=== PATIENT | male | born 1950 | race Caucasian/White ===

== ENCOUNTER 2016-09-27 21:10 | Inpatient (IN) | payer MEDICARE, OTHER ==
[~2016-09-27] VITALS: Ht 165.1 cm; Wt 75.4 kg
[~2016-09-27 21:10] MED LIST: ACET-141 GTB; ALLO100T GTB; AMLO5TAB4 GTB; ASCO500S2 GTB; ATOR10TA65 GTB; CLON-379 GTB; COLC0.6T6 GTB; EPOE10003 SC; FEBU40TA GTB; FER325 GTB; HEP30MU30 IJ; HYDR-3671 GTB; HYDR-762 GTB; INSU100C SC; IPRA3AMP INHALATION; LACT20SO2 GTB; LACTINEX GTB; METAM GTB; METO-407 GTB; PANT40TA4 GTB; POLY15DR42 BOTH EYES; TAMS0.4C2 GTB; VANC500V10 GTB; [UNRECOGNIZED DRUG - CODE] PO
[2016-09-27] MEDS ORDERED: SOD CHLORIDE 0.9% 1,000 ML IV STA (22:51)
--- NOTE | 2016-09-27 23:13 | RADRPT ---
PROCEDURE: XR Chest. CLINICAL INDICATION: Possible stroke. 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 Cardiomegaly. The lungs are clear. Likely changes of centrolobular emphysema. There is no pleural effusion or pneumothorax. IMPRESSION: No acute disease. RPTAT: [facility] Physician [place] Date Time Electronically viewed and signed by Stephanie Licea Physician on 09/27/2016 23:13 RS/
[2016-09-27 23:39] LABS: ADD UMIC YES; URINE BILIRUBIN (Dip) NEGATIVE (NEGATIVE); URINE BLOOD (Dip) TRACE (NEGATIVE); URINE COLOR LT. YELLOW (YELLOW); URINE GLUCOSE (Dip) NEGATIVE (NEGATIVE); URINE KETONES (Dip) NEGATIVE (NEGATIVE); URINE LEUKOCYTE ESTERASE (Dip) 2+ (NEGATIVE); URINE NITRITE (Dip) NEGATIVE (NEGATIVE); URINE TOTAL PROTEIN (Dip) 1+ (NEGATIVE); URINE UROBILINOGEN (Dip) 0.2 E.U./dL (0.1-1.0)
[2016-09-27 23:40] LABS: BASOPHILS % 0.4 % (0.0-2.0); EOSINOPHILS # 0.1 10^3/ul (0.0-0.5); EOSINOPHILS % 1.3 % (0.0-7.0); HEMATOCRIT 38.8 % (42.0-52.0); HEMOGLOBIN 13.2 g/dl (14.0-18.0); LYMPHOCYTES # 2.2 10^3/ul (0.8-2.9); LYMPHOCYTES % 25.6 % (15.0-51.0); MEAN CORPUSCULAR HEMOGLOBIN 30.1 pg (29.0-33.0); MEAN CORPUSCULAR HGB CONC 34.1 g/dl (32.0-37.0); MEAN CORPUSCULAR VOLUME 88.4 fl (82.0-101.0); MEAN PLATELET VOLUME 8.8 fl (7.4-10.4); MONOCYTE # 0.9 10^3/ul (0.3-0.9); MONOCYTES % 10.6 % (0.0-11.0); NEUTROPHIL # 5.3 10^3/ul (1.6-7.5); NEUTROPHILS % 62.1 % (39.0-77.0); PLATELET COUNT 234 10^3/UL (140-440); RED BLOOD COUNT 4.39 10^6/ul (4.70-6.10); RED CELL DISTRIBUTION WIDTH 15.5 % (11.5-14.5); UNCORRECTED WBC 8.5 10^3/ul (4.8-10.8); WHITE BLOOD COUNT 8.5 10^3/ul (4.8-10.8)
[2016-09-27 23:42] LABS: CONDITION 1; LH ANALYZER COMMENTS 1
--- NOTE | 2016-09-27 23:44 | RADRPT ---
PROCEDURE: CT Brain without contrast. CLINICAL INDICATION: Stroke TECHNIQUE: A CT of the brain was performed on a GE [employer] 64-slice CT scanner utilizing axial imaging from the skull base through the vertex without IV contrast. Multiplanar reformatted images were made. Images were reviewed on a PACS workstation. The CTDIvol is 46.84 mGy and the DLP is 635 .09 mGycm. One of the following 3 dose reduction techniques were used: Automated exposure control; adjustment of the mA and/or kV according to patient size; or use of iterative reconstruction technique. COMPARISON: 01/12/2016 CT brain FINDINGS: There is no intracranial hemorrhage, mass effect, or midline shift. No extra-axial fluid collection is seen. The ventricles and sulci are age appropriate. No evidence for hydrocephalus is present. M edial wedge-shaped decreased attenuation is noted in the left superior cerebellum and vermis. Subtl e decreased attenuation is noted in the bilateral centrum semiovale and periventricular white matter compatible with mild chronic microvascular ischemic disease. The visualized scalp and calvarium demonstrates a right transparietal craniotomy and shunt with tip superimposed over the left body of the lateral ventricle and periventricular white matter. The patie nt is status post suboccipital craniectomy changes. The previously described occipital scalp fluid collection has resolved. The bilateral orbits are normal. The bilateral paranasal sinuses, mastoid air cells and middle ear cavities are clear. IMPRESSION: 1. No evidence of acute intracranial hemorrhage, infarcts, or acute intracranial pathology. 2. Status post suboccipital craniectomy with postsurgical changes present and gliosis in the left s uperior cerebellum and vermis. 3. Stable appearance to the right transparietal shunt without hydrocephalous. 4. Mild chronic microvascular ischemic disease and mild diffuse volume loss RPTAT: HDC .Lacey Sofia MD, Date Time Electronically viewed and signed by .Lacey Sofia MD, on 09/27/2016 23:44 .C/
[2016-09-27 23:46] LABS: BACTERIA,URINE MANY; SQUAMOUS EPITHELIAL CELL,UR FEW; URINE RBCS 0-2 /HPF (0)
[2016-09-27 23:50] LABS: INR 0.89; PT RATIO 0.9
[2016-09-27 23:51] LABS: PARTIAL THROMBOPLASTIN TIME 34.2 Sec (25.0-35.0)
[2016-09-27 23:52] LABS: CHLORIDE 98 mmol/L (97-110)
[2016-09-27 23:53] LABS: POTASSIUM 3.6 mmol/L (3.5-5.1); SODIUM 142 mmol/L (135-144)
[2016-09-27 23:56] LABS: ANION GAP 19 (8-16); BLOOD UREA NITROGEN 48 mg/dl (7-20); CALCIUM 9.4 mg/dl (8.4-10.2); CARBON DIOXIDE 29 mmol/L (21-31); GLUCOSE 138 mg/dl (70-220)
[2016-09-28] MEDS ORDERED: CEFEPIME 2GM/50 ML (PMX) 50 ML IVPB SCH
[2016-09-28] MEDS ORDERED: MECLIZINE 12.5 MG TAB PO ONE (00:30)
[2016-09-28 01:09] LABS: TROPONIN-I < 0.012 ng/ml (0.00-0.12)
[2016-09-28] MEDS ORDERED: ONDANSETRON 4 MG INJ IV PRN ×2 (02:00→09:00)
[2016-09-28] MEDS ORDERED: ACETAMINOPHEN 325 MG TAB PO PRN ×2 (02:00→09:00)
--- NOTE | 2016-09-28 04:41 | ERA ---
ER Documentation Chief Complaint Date/Time DATE: 09/28/16 TIME: 04:38 Chief Complaint WEAKNESS AND AMS SINCE 0700. NO HEADACHE. NO VOMITING. SPEECH CLEAR HPI This 66-year-old male presents for feeling weak since this morning. Has generalized weakness as well as dizziness described as more of a vertigo as well as lightheadedness. Is a calm in by his family members also state that he is saying things that don't make sense and possibly even hallucinating. The last time the patient had these symptoms he was admitted for sepsis. I was ER physician at that time and it isn't cellulitis then. Denies abdominal pain, diarrhea, fevers, but has had chills. Denies cough and shortness of breath as well as chest pain. ROS All systems reviewed and are negative except as per history of present illness. Medications Home Meds Reported Medications Ascorbic Acid* (Vitamin C* Liq) 500 Mg/5 Ml Syrup, 500 MG GTB DAILY, ML 01/12/16 Vancomycin Hcl* (Vancomycin Hcl* Liq) 250 Mg/5 Ml-Oral Soln, 250 MG GTB Q6, ML 01/12/16 Tamsulosin Hcl* (Tamsulosin Hcl*) 0.4 Mg Cap.er.24h, 0.4 MG GTB DAILY, CAP 01/12/16 Pantoprazole* (Pantoprazole*) 40 Mg Tablet.dr, 40 MG GTB DAILY, TAB 01/12/16 Nystatin* (Mycostatin*) 5 Ml Susp, 5 ML PO TID, EA 01/12/16 Psyllium* (Metamucil*) 1 Pkt Susp, 1 PKT GTB DAILY, PACKET 01/12/16 Lactulose* (Lactulose*) 20 Gm/30 Ml Solution, 20 GM GTB Q8 Y for CONSTIPATION, ML 01/12/16 Lactobacillus Acidophilus* (Lactinex*) 1 Tab Chew, 1 TAB GTB TID, TAB 01/12/16 Hydrocodone Bit-Acetaminophen* ([place]*) 10-325 Mg Tablet, 1 TAB GTB Q4H Y for PAIN, TAB 01/12/16 Hydralazine Hcl* (Hydralazine Hcl*) 25 Mg Tab, 25 MG GTB TID Y for ELEVATED BLOOD PRESSURE, #60 TAB HOLD IF SBP<110 OR HR<60 01/12/16 Insulin Lispro (Humalog) 100 U/Ml Cartridge, 0 SC SLIDING SCALE ACHS, EA 01/12/16 Heparin Sod (Porcine) (Heparin) 1,000 Unit/Ml Soln, 5000 UNIT IJ Q12 01/12/16 Ferrous Sulfate* (Ferrous Sulfate*) 325 Mg Tabec, 325 MG GTB DAILY, TAB 01/12/16 Epoetin tali* (Epogen* (ESRD)) 10,000 Unit/1 Ml Vial, 84907 UNIT SC TUES, FRI, SAT, VIAL 01/12/16 Ipratropium-Albuterol (Ipratropium-Albuterol) 0.5-3 Mg/3 Ml Ampul.neb, 3 ML INHALATION Q6 Y for WHEEZING AND SOB, #30 VIAL 01/12/16 Clonidine Hcl* (Clonidine Hcl*) 0.1 Mg Tab, 0.1 MG GTB BID Y for ELEVATED BLOOD PRESSURE, TAB HOLD IF SBP<110, HR<60 01/12/16 Atorvastatin Calcium (Atorvastatin Calcium) 10 Mg Tablet, 10 MG GTB QHS, #30 TAB 01/12/16 Artificial Tears* (Artificial Tears* Ophth) 15 ml Opht, 2 DROP BOTH EYES QID, EA 01/12/16 Amlodipine Besylate* (Norvasc*) 5 Mg Tablet, 5 MG GTB DAILY, TAB HOLD FOR SBP LESS THAN 110 OR HR LESS THAN 60 01/12/16 Allopurinol* (Allopurinol*) 100 Mg Tablet, 100 MG GTB DAILY, TAB 01/12/16 Acetaminophen* (Acetaminophen*) 500 MG Extra Strength Tablet, 500 MG GTB Q6 Y for PAIN AND OR ELEVATED TEMP, TAB 01/12/16 Colchicine* (Colcrys*) 0.6 Mg Tablet, 0.6 MG GTB DAILY Y for gout, TAB 05/30/14 Metoprolol Tartrate* (Lopressor*) 100 Mg Tablet, 100 MG GTB BID, TAB HOLD IF SBP<110, HR<60 05/30/14 Febuxostat* (Uloric*) 40 Mg Tablet, 40 MG GTB DAILY 12/29/11 Allergies Allergies: Coded Allergies: morphine (Verified Allergy, Severe, 01/12/16) PMhx/Soc History of Surgery: Yes (OCCIPITAL CRANIOTOMY,VETRICULOSTOMY, PEG TUBE PLACEMENT,L KNEE SURGERY, CHO) Anesthesia Reaction: No Hx Neurological Disorder: Yes (DEPRESSION,DEMENTIA) Hx Respiratory Disorders: Yes (PNEUMONIA) Hx Cardiac Disorders: Yes (HTN,HYPERLIPIDIA,CVA) Hx Psychiatric Problems: Yes (DEMETIA) Hx Miscellaneous Medical Probl: Yes (POST VENTRICULOSTOMY) Hx Alcohol Use: Yes Hx Substance Use: No Hx Tobacco Use: Yes Smoking Status: Former smoker Physical Exam Vitals Vital Signs Date Time Temp Pulse Resp B/P Pulse Ox O2 Delivery O2 Flow Rate FiO2 09/27/16 23:10 73 16 164/101 99 Room Air 09/27/16 21:15 97.8 71 20 155/65 98 Physical Exam Const: [] No distress Head: Atraumatic Eyes: Normal Conjunctiva ENT: Normal External Ears, Nose and Mouth. Neck: Full range of motion..~ No meningismus. Resp: Clear to auscultation bilaterally Cardio: Regular rate and rhythm, no murmurs Abd: Soft, non tender, non distended. Normal bowel sounds Skin: No petechiae or rashes Back: No midline or flank tenderness Ext: No cyanosis, or edema, no evidence of cellulitis Neur: Awake and alert and oriented 3, however is confused and answering some questions, no focal deficit except for the chronic residual deficits from his ischemic hemorrhage. Psych: Normal Mood and Affect Result Diagram: 09/27/16231709/27/162317 Results 24 hrs Laboratory Tests Test 09/27/16 23:15 09/27/16 23:18 09/27/16 23:20 09/27/16 23:38 Urine Bacteria MANY Urine Bilirubin NEGATIVE Urine Clarity HAZY Urine Color LT. YELLOW Urine Glucose NEGATIVE% Urine Hemoglobin TRACE Urine Ketones NEGATIVE Urine Leukocyte Esterase 2+ Urine Microscopic RBC 0-2/HPF Urine Microscopic WBC 25-50/HPF Urine Nitrite NEGATIVE Urine Specific [place] 1.010 Urine Squamous Epithelial Cells FEW Urine Total Protein 1+ Urine Urobilinogen 0.2 E.U./dL Urine pH 7.0 Activated Partial Thromboplast Time 34.2Sec Anion Gap 19 Basophils # 0.010^3/ul Basophils % 0.4% Blood Morphology Comment Blood Urea Nitrogen 48mg/dl Calcium Level 9.4mg/dl Carbon Dioxide Level 29mmol/L Chloride Level 98mmol/L Creatinine 2.70mg/dl Eosinophils # 0.110^3/ul Eosinophils % 1.3% Glucose Level 138mg/dl Hematocrit 38.8% Hemoglobin 13.2g/dl Hemoglobin A1c 5.8% INR International Normalized Ratio 0.89 Lymphocytes # 2.210^3/ul Lymphocytes % 25.6% Mean Corpuscular Hemoglobin 30.1pg Mean Corpuscular Hemoglobin Concent 34.1g/dl Mean Corpuscular Volume 88.4fl Mean Platelet Volume 8.8fl Monocytes # 0.910^3/ul Monocytes % 10.6% Neutrophils # 5.310^3/ul Neutrophils % 62.1% Nucleated Red Blood Cells # 0.010^3/ul Nucleated Red Blood Cells % 0.0/100WBC Platelet Count 97230^3/UL Potassium Level 3.6mmol/L Prothrombin Time 12.0Sec Prothrombin Time Ratio 0.9 Red Blood Count 4.3910^6/ul Red Cell Distribution Width 15.5% Sodium Level 142mmol/L Troponin I < 0.012ng/ml White Blood Count 8.510^3/ul Lactic Acid Level 1.3mmol/L Bedside Glucose 127mg/dL Current Medications Medications (Trade) Dose Ordered Sig/Piper Route PRN Reason Start Time Stop Time Status Last Admin Dose Admin Sodium Chloride 1,000 ml @ 1,000 mls/hr Q1H STAT IV 09/27/16 22:51 09/27/16 23:50 DC 09/27/16 23:40 Cefepime HCl (Maxipime 2gm/50 ml (Pmx)) 50 ml @ 100 mls/hr ONCE IVPB 09/28/16 00:00 09/28/16 00:29 DC 09/28/16 00:42 Meclizine HCl (Antivert) 25 mg ONCE ONCE PO 09/28/16 00:30 09/28/16 00:31 DC 09/28/16 00:42 Ondansetron HCl (Zofran Inj) 4 mg BRIDGE ORDER PRN IV NAUSEA AND/OR VOMITING 09/28/16 02:00 09/29/16 01:59 Acetaminophen (Tylenol Tab) 650 mg ER BRIDGE PRN PO MILD PAIN/FEVER 09/28/16 02:00 09/29/16 01:59 Procedures/MDM 66-year-old with encephalopathic symptoms likely secondary to urinary tract infection. CT shows no signs of hemorrhage or ischemic infarct currently, no hydrocephalus or evidence of shunt malfunction... Patient has had similar symptoms with prior infections. Patient has renal insufficiency is consistent with his baseline and is unlikely to be uremic with a BUN of 48. He has appears somewhat dehydrated. He was given normal saline IV fluid. His also given cefepime for his infection. Blood and urine cultures were taken. Patient had mild hypertension emergency room was given amlodipine tablet. Because of the severity of his altered mental status with urinary tract infection and the family's concern overnight believe he should be admitted to the hospital for monitoring of resolution with IV antibiotics. Possibly will receive a brain MRI as well. I spoke with Dr. Pabon who will be admitting the patient to [facility]. Primary care doctor is Dr. Burkett. When Kwadwo was paged, Dr. Leahy was on-call and said that Dr. Sood's group needs to be consulted for admission. EKG interpretation: Normal sinus rhythm rate of 71, borderline right axis deviation, no ST or T-wave changes concerning for acute ischemia, left posterior fascicular block. Cardio monitor interpretation: Normal sinus rhythm without arrhythmia Chest x-ray interpretation: No acute process, no witnessed and, no pneumothorax no infiltrates, no fractures Head CT interpretation: No acute process, prior craniotomy, no hemorrhage no mass effect no midline shift, no skull fracture. Departure Diagnosis: Primary Impression: Complicated UTI (urinary tract infection) Additional Impressions: Altered mental status Generalized weakness Condition: Stable JULIA BETTENCOURT DO Sep 28, 2016 04:41
[2016-09-28] MEDS ORDERED: AMLODIPINE 10 MG TAB PO ONE (05:00)
[2016-09-28 05:06] LABS: BARBITURATES Negative (NEGATIVE); BENZODIAZEPINES Negative (NEGATIVE); COCAINE Negative (NEGATIVE); OPIATES Negative (NEGATIVE)
[2016-09-28 05:33] LABS: CANNABINOIDS Negative (NEGATIVE)
[2016-09-28] MEDS ORDERED: NACL 0.9% 3 ML SYG IV SCH (09:00)
[2016-09-28] MEDS ORDERED: ENOXAPARIN 30 MG/0.3 ML SYG SC SCH (09:00)
[2016-09-28] MEDS: FAMOTIDINE 20 MG INJ IV SCH (09:18)
[2016-09-28] MEDS: CEFEPIME 1GM/50 ML (PMX) 50 ML IVPB SCH ×2 (09:19→20:57)
[2016-09-28] MEDS: SOD CHLORIDE 0.9% 1,000 ML IV SCH ×3 (09:19→21:12)
--- NOTE | 2016-09-28 11:19 | HP ---
Date/Time of Note Date/Time of Note DATE: 09/28/16 TIME: 11:17 Assessment/Plan VTE Prophylaxis VTE Prophylaxis Intervention: LMWH Lines/Catheters IV Catheter Type (from Nrs): Saline Lock Assessment/Plan Chief Complaint/Hosp Course 1) UTI - intravenous antibiotics - intravenous fluids 2) diabetes - monitor blood sugar 3) gout - give pain medication Problems: HPI/ROS Admit Date/Time Admit Date/Time Patient with multiple medical problems including diabetes, hypertension, hypercholesterolemia, previous cerebrovascular accident, dementia comes in with altered level of consciousness. Patient was found to have an urinary tract infection and will be admitted for intravenous antibiotics and intravenous fluids. PMH/Family/Social Past Medical History previous cerebrovascular accident, dementia Medical History: diabetes, high cholesterol, hypertension Past Surgical History Past Surgical Hx: no surgical history Social History Alcohol Use: occasionally Smoking Status: Former smoker Exam/Review of Systems Vital Signs Vitals Vital Signs Date Time Temp Pulse Resp B/P Pulse Ox O2 Delivery O2 Flow Rate FiO2 09/28/16 08:10 60 20 126/79 96 Room Air 09/27/16 21:15 97.8 Intake and Output 09/27/16 09/27/16 09/28/16 15:00 23:00 07:00 Intake Total 1050 ml Balance 1050 ml Exam Constitutional: alert, well developed Head: atraumatic, normocephalic Neck: supple Respiratory: clear to auscultation Cardiovascular: regular rate and rhythm Gastrointestinal: non-tender, soft Labs Result Diagram: 09/27/168 09/27/162317 Medications Medications Current Medications Sodium Chloride (NS) 1,000 ml @ 100 mls/hr Q10H IV Last administered on 09:19; Admin Dose 100 MLS/HR; Start 09/28/16 at 08:50 Ondansetron HCl (Zofran Inj) 4 mg Q6H PRN IV NAUSEA AND/OR VOMITING; Start at 09:00 Acetaminophen (Tylenol Tab) 650 mg Q6H PRN PO PAIN LEVEL 1-3 OR FEVER; Start at 09:00 Famotidine (Pepcid Iv) 20 mg DAILY IV Last administered on 09/28/16 09:18; Admin Dose 20 MG; Start 09/28/16 at 09:00 Enoxaparin Sodium 30 mg 30 mg DAILY SC Last administered on 09/28/16 09:18; Admin Dose 30 MG; Start 09/28/16 at 09:00 Cefepime HCl (Maxipime 1gm/50 ml (Pmx)) 50 ml @ 100 mls/hr Q12 IVPB Last administered on 09/28/16 09:19; Admin Dose 100 MLS/HR; Start 09/28/16 at 09:00 Colchicine (Colchicine) 0.6 mg DAILY PO ; Start 09/29/16 at 09:00; Status UNV Oxycodone/ Acetaminophen (Percocet (5/ 325)) 1 tab Q6 PO ; Start 09/28/16 at 12: 00; Status UNV DONNA COLEMAN Sep 28, 2016 11:19
[2016-09-28] MEDS ORDERED: COLCHICINE 0.6 MG TAB GTB PRN (11:30)
[2016-09-28] MEDS ORDERED: LACTULOSE 30ML CUP GTB PRN (11:30)
[2016-09-28] MEDS ORDERED: ALBUTEROL/IPRATROPIUM (NEB) 3 ML AMP INH PRN (11:30)
[2016-09-28] MEDS ORDERED: ACETAMINOPHEN 500 MG TAB PO PRN (11:30)
[2016-09-28] MEDS ORDERED: HYDROCODONE/APAP (10/325) TAB GTB PRN (11:30)
[2016-09-28] MEDS ORDERED: DEXTROSE 50% 50 ML SYRINGE IV PRN ×2 (12:00)
[2016-09-28] MEDS ORDERED: GLUCOSE GEL 15 GRAM TUBE PO PRN ×2 (12:00)
[2016-09-28] MEDS ORDERED: FERROUS SULFATE 60 MG/ML 5ML CUP GTB SCH (12:00)
[2016-09-28] MEDS ORDERED: OXYCODONE/ACETAMINOPHEN (5/325) TAB PO PRN (12:00)
[2016-09-28] MEDS ORDERED: GLUCAGON 1 MG INJ IM PRN (12:00)
[2016-09-28] MEDS ORDERED: ASCORBIC ACID 500 MG TAB GTB SCH (12:00)
[2016-09-28] MEDS ORDERED: [UNRECOGNIZED DRUG - REMARK] XX SCH (12:00)
[2016-09-28] MEDS ORDERED: GLUCOSE GEL 15 GRAM TUBE BUCCAL PRN (12:00)
[2016-09-28] MEDS ORDERED: COLCHICINE 0.6 MG TAB PO PRN (12:14)
[2016-09-28] MEDS ORDERED: LACTULOSE 30ML CUP PO PRN (12:17)
[2016-09-28] MEDS: NYSTATIN SUSP 5 ML CUP PO SCH ×2 (13:00→20:53)
[2016-09-28] MEDS: VANCOMYCIN HCL 250 MG/5ML POSYG PO SCH ×3 (13:00→23:46)
[2016-09-28] MEDS: ARTIFICIAL TEARS 15 ML OPH BOTH EYES SCH ×3 (13:00→20:46)
[2016-09-28] MEDS: LACTOBACILLUS CHEW TAB PO SCH ×2 (13:00→20:53)
[2016-09-28 14:00] VITALS: TEMP 98
[2016-09-28 16:00] VITALS: Ht 165.1 cm; Wt 75.4 kg
[2016-09-28 16:40] VITALS: BP 133/77
[2016-09-28 16:43] VITALS: BP 133/77; RESP 20
[2016-09-28] MEDS: INSULIN ASPART [NOVOLOG] 3 ML PEN SC SCH ×2 (17:27→22:00)
[2016-09-28 20:23] VITALS: BP 176/89; RESP 16
[2016-09-28] MEDS: ATORVASTATIN 10 MG TAB PO SCH (20:53)
[2016-09-28] MEDS: METOPROLOL 100 MG TAB PO SCH (20:54)
[2016-09-28] MEDS ORDERED: HEPARIN 1000 UNITS/ML 30 ML INJ SC SCH (21:00)
[2016-09-29 03:26] VITALS: BP 125/78; PULSE 69
[2016-09-29] MEDS: SOD CHLORIDE 0.9% 1,000 ML IV SCH ×4 (04:50→23:34)
[2016-09-29] MEDS: PANTOPRAZOLE (EC) 40 MG TAB PO SCH (05:54)
[2016-09-29] MEDS: VANCOMYCIN HCL 250 MG/5ML POSYG PO SCH ×4 (05:54→23:34)
[2016-09-29 06:09] LABS: ALBUMIN 3.7 g/dl (3.3-4.9); POTASSIUM 3.7 mmol/L (3.5-5.1)
[2016-09-29 06:11] LABS: ALBUMIN/GLOBULIN RATIO 1.05; BILIRUBIN,INDIRECT 0.1 mg/dl (0-1.1); BILIRUBIN,TOTAL 0.1 mg/dl (0.2-1.3); CREATININE 2.32 mg/dl (0.61-1.24); TOTAL PROTEIN 7.2 g/dl (6.1-8.1)
[2016-09-29 06:48] LABS: BASOPHILS % 0.4 % (0.0-2.0); EOSINOPHILS # 0.1 10^3/ul (0.0-0.5); EOSINOPHILS % 1.1 % (0.0-7.0); HEMATOCRIT 34.6 % (42.0-52.0); LYMPHOCYTES # 1.2 10^3/ul (0.8-2.9); LYMPHOCYTES % 16.2 % (15.0-51.0); MEAN CORPUSCULAR HEMOGLOBIN 30.4 pg (29.0-33.0); MEAN CORPUSCULAR HGB CONC 34.7 g/dl (32.0-37.0); MEAN CORPUSCULAR VOLUME 87.6 fl (82.0-101.0); MEAN PLATELET VOLUME 8.7 fl (7.4-10.4); MONOCYTE # 0.8 10^3/ul (0.3-0.9); MONOCYTES % 11.3 % (0.0-11.0); NEUTROPHIL # 5.1 10^3/ul (1.6-7.5); PLATELET COUNT 228 10^3/UL (140-440); RED BLOOD COUNT 3.95 10^6/ul (4.70-6.10); RED CELL DISTRIBUTION WIDTH 14.9 % (11.5-14.5); UNCORRECTED WBC 7.3 10^3/ul (4.8-10.8); WHITE BLOOD COUNT 7.3 10^3/ul (4.8-10.8)
[2016-09-29 07:12] LABS: CONDITION 1; LH ANALYZER COMMENTS 1
[2016-09-29 07:57] VITALS: BP 149/79; RESP 20
[2016-09-29] MEDS: INSULIN ASPART [NOVOLOG] 3 ML PEN SC SCH ×4 (08:00→20:55)
[2016-09-29] MEDS ORDERED: COLCHICINE 0.6 MG TAB PO SCH (09:00)
[2016-09-29] MEDS: FEBUXOSTAT 40 MG TABLET PO SCH (09:39)
[2016-09-29] MEDS: TAMSULOSIN (SR) 0.4 MG CAP PO SCH (09:39)
[2016-09-29] MEDS: ASCORBIC ACID 500 MG TAB PO SCH (09:39)
[2016-09-29] MEDS: ALLOPURINOL 100 MG TAB PO SCH (09:39)
[2016-09-29] MEDS: COLCHICINE 0.6 MG TAB PO SCH (09:40)
[2016-09-29] MEDS: FERROUS SULFATE (EC) 325 MG TAB PO SCH (09:40)
[2016-09-29] MEDS: FAMOTIDINE 20 MG INJ IV SCH (09:40)
[2016-09-29] MEDS: LACTOBACILLUS CHEW TAB PO SCH ×3 (09:40→20:48)
[2016-09-29] MEDS: HEPARIN 5,000 UNIT/0.5 ML SYG SC SCH ×2 (09:41→20:54)
[2016-09-29] MEDS: PSYLLIUM 28% PACKET PO SCH (09:41)
[2016-09-29] MEDS: ARTIFICIAL TEARS 15 ML OPH BOTH EYES SCH ×4 (09:42→20:48)
[2016-09-29] MEDS: AMLODIPINE 5 MG TAB PO SCH (09:43)
[2016-09-29] MEDS: METOPROLOL 100 MG TAB PO SCH ×2 (09:45→20:48)
[2016-09-29] MEDS: CEFEPIME 1GM/50 ML (PMX) 50 ML IVPB SCH ×2 (09:49→20:48)
[2016-09-29] MEDS: NYSTATIN SUSP 5 ML CUP PO SCH ×3 (09:49→20:48)
--- NOTE | 2016-09-29 11:07 | PN ---
Date/Time of Note Date/Time of Note DATE: 09/29/16 TIME: 11:06 Assessment/Plan VTE Prophylaxis VTE Prophylaxis Intervention: LMWH Lines/Catheters IV Catheter Type (from Nrsg): Peripheral IV Urinary Cath still in place: Yes Reason Cath still needed: skin wounds contaminated by urine Assessment/Plan Chief Complaint/Hosp Course 1) UTI - intravenous antibiotics - intravenous fluids 2) diabetes - monitor blood sugar 3) gout - give pain medication Problems: Subjective 24 Hr Interval Summary Free Text/Dictation Patient complains of pain in left hand and chest when moving Exam/Review of Systems Vital Signs Vitals Vital Signs Date Time Temp Pulse Resp B/P Pulse Ox O2 Delivery O2 Flow Rate FiO2 09/29/16 07:57 98.1 70 20 149/79 96 09/28/16 14:00 Room Air Intake and Output 09/28/16 09/28/16 09/29/16 15:00 23:00 07:00 Intake Total 1100 ml 950 ml Output Total 2000 ml Balance 1100 ml -1050 ml Exam Constitutional: well developed Head: atraumatic, normocephalic Neck: supple Respiratory: clear to auscultation Cardiovascular: regular rate and rhythm Gastrointestinal: non-tender, soft Results Result Diagram: 09/29/16 0525 09/29/16 0525 Results 24 hrs Laboratory Tests Test 09/28/16 17:25 09/28/16 21:06 09/29/16 05:25 09/29/16 07:57 Bedside Glucose 98 150 97 Alanine Aminotransferase (ALT/SGPT) 18 Albumin 3.7 Albumin/Globulin Ratio 1.05 Alkaline Phosphatase 92 Anion Gap 18 H Aspartate Amino Transf (AST/SGOT) 10 L Basophils # 0.0 Basophils % 0.4 Blood Morphology Comment Blood Urea Nitrogen 35 #H Calcium Level 9.0 Carbon Dioxide Level 25 Chloride Level 104 Creatinine 2.32 H Direct Bilirubin 0.00 Eosinophils # 0.1 Eosinophils % 1.1 Globulin 3.50 H Glucose Level 101 Hematocrit 34.6 L Hemoglobin 12.0 L Indirect Bilirubin 0.1 Lymphocytes # 1.2 Lymphocytes % 16.2 Mean Corpuscular Hemoglobin 30.4 Mean Corpuscular Hemoglobin Concent 34.7 Mean Corpuscular Volume 87.6 Mean Platelet Volume 8.7 Monocytes # 0.8 Monocytes % 11.3 H Neutrophils # 5.1 Neutrophils % 71.0 Nucleated Red Blood Cells # 0.0 Nucleated Red Blood Cells % 0.0 Platelet Count 228 Potassium Level 3.7 Red Blood Count 3.95 L Red Cell Distribution Width 14.9 H Sodium Level 143 Total Bilirubin 0.1 L Total Protein 7.2 White Blood Count 7.3 Medications Medications Current Medications Sodium Chloride (NS) 1,000 ml @ 100 mls/hr Q10H IV Last administered on 09:51; Admin Dose 100 MLS/HR; Start 09/28/16 at 08:50 Ondansetron HCl (Zofran Inj) 4 mg Q6H PRN IV NAUSEA AND/OR VOMITING; Start at 09:00 Famotidine 20 mg 20 mg DAILY IV Last administered on 09/29/16 09:40; Admin Dose 20 MG; Start 09/28/16 at 09:00 Cefepime HCl (Maxipime 1gm/50 ml (Pmx)) 50 ml @ 100 mls/hr Q12 IVPB Last administered on 09/29/16 09:49; Admin Dose 100 MLS/HR; Start 09/28/16 at 09:00 Oxycodone/ Acetaminophen (Percocet (5/ 325)) 1 tab Q6H PRN PO PAIN; Start 09/28 at 12:00 Acetaminophen (Tylenol Tab) 500 mg Q6H PRN PO PAIN AND OR ELEVATED TEMP; Start 09/28/16 at 11:30 Allopurinol (Zyloprim) 100 mg DAILY PO Last administered on 09/29/16 09:39; Admin Dose 100 MG; Start 09/29/16 at 09:00 Amlodipine Besylate (Norvasc) 5 mg DAILY PO Last administered on 09/29/16 09: 43; Admin Dose 5 MG; Start 09/29/16 at 09:00 Eye Lubricant (Artificial Tears Oph) 2 drop QID BOTH EYES Last administered on 09/29/16 09:42; Admin Dose 2 DROP; Start 09/28/16 at 13:00 Atorvastatin Calcium (Lipitor) 10 mg QHS PO Last administered on 09/28/16 20: 53; Admin Dose 10 MG; Start 09/28/16 at 21:00 Febuxostat (Uloric) 40 mg DAILY PO Last administered on 09/29/16 09:39; Admin Dose 40 MG; Start 09/29/16 at 09:00 Lactobacillus Acidoph/Bulgaricus (Floranex) 1 tab TID PO Last administered on 09:40; Admin Dose 1 TAB; Start 09/28/16 at 13:00 Metoprolol Tartrate (Lopressor) 100 mg BID PO Last administered on 09/29/16 09 :45; Admin Dose 100 MG; Start 09/28/16 at 21:00 Nystatin (Nystatin Susp) 5 ml TID PO Last administered on 09/29/16 09:49; Admin Dose 5 ML; Start 09/28/16 at 13:00 Pantoprazole (Protonix Tab) 40 mg DAILY@06 PO Last administered on 09/29/16 05 :54; Admin Dose 40 MG; Start 09/29/16 at 06:00 Psyllium Hydrophilic Mucilloid (Metamucil) 1 pkt DAILY PO Last administered on 09/29/16 09:41; Admin Dose 1 PKT; Start 09/29/16 at 09:00 Tamsulosin HCl (Flomax) 0.4 mg DAILY PO Last administered on 09/29/16 09:39; Admin Dose 0.4 MG; Start 09/29/16 at 09:00 Vancomycin HCl (Vancomycin Oral Syringe) 250 mg Q6 PO Last administered on 09/29 05:54; Admin Dose 250 MG; Start 09/28/16 at 13:00 Miscellaneous Information 1 ea NOTE XX ; Start 09/28/16 at 12:00 Glucose (Glutose) 15 gm Q15M PRN PO DECREASED GLUCOSE; Start 09/28/16 at 12:00 Glucose (Glutose) 22.5 gm Q15M PRN PO DECREASED GLUCOSE; Start 09/28/16 at 12: 00 Dextrose (D50w Syringe) 25 ml Q15M PRN IV DECREASED GLUCOSE; Start 09/28/16 at 12:00 Dextrose (D50w Syringe) 50 ml Q15M PRN IV DECREASED GLUCOSE; Start 09/28/16 at 12:00 Glucagon (Glucagen) 1 mg Q15M PRN IM DECREASED GLUCOSE; Start 09/28/16 at 12:00 Glucose (Glutose) 15 gm Q15M PRN BUCCAL DECREASED GLUCOSE; Start 09/28/16 at 12 :00 Colchicine (Colchicine) 0.6 mg DAILY PO Last administered on 09/29/16 09:40; Admin Dose 0.6 MG; Start 09/29/16 at 09:00 Ascorbic Acid (Vitamin C) 500 mg DAILY PO Last administered on 09/29/16 09:39 ; Admin Dose 500 MG; Start 09/28/16 at 12:13 Clonidine (Catapres) 0.1 mg Q12H PRN PO SBP ABOVE 160 Last administered on 09/28 23:17; Admin Dose 0.1 MG; Start 09/28/16 at 12:14 Colchicine (Colchicine) 0.6 mg DAILY PRN PO gout; Start 09/28/16 at 12:14 Ferrous Sulfate (Ferrous Sulfate (Ec)) 325 mg DAILY PO Last administered on 09:40; Admin Dose 325 MG; Start 09/29/16 at 09:00 Hydralazine HCl (Apresoline) 25 mg Q8H PRN PO SPB ABOVE 160; Start 09/28/16 at 12:16 Acetaminophen/ Hydrocodone Bitart (Drew (10/325)) 1 tab Q4H PRN PO PAIN; Start 09/28/16 at 12:16 Lactulose (Enulose) 20 gm Q8 PRN PO CONSTIPATION; Start 09/28/16 at 12:17 Heparin Sodium (Porcine) (Heparin (5000 Units/0.5 ml)) 5,000 unit Q12 SC Last administered on 09/29/16 09:41; Admin Dose 5,000 UNIT; Start 09/29/16 at 09:00 DONNA COLEMAN Sep 29, 2016 11:07
[2016-09-29 20:19] VITALS: BP 172/93; RESP 16
[2016-09-29] MEDS: ATORVASTATIN 10 MG TAB PO SCH (20:48)
[2016-09-30] MEDS: HYDROmorphONE 1 MG/ML SYG IV PRN ×3 (04:13→22:36)
[2016-09-30] MEDS: VANCOMYCIN HCL 250 MG/5ML POSYG PO SCH ×3 (05:32→17:33)
[2016-09-30] MEDS: PANTOPRAZOLE (EC) 40 MG TAB PO SCH (05:32)
[2016-09-30] MEDS: INSULIN ASPART [NOVOLOG] 3 ML PEN SC SCH ×4 (08:00→20:27)
[2016-09-30 08:14] VITALS: BP 201/106; RESP 20
[2016-09-30 08:16] VITALS: BP 200/107
[2016-09-30] MEDS: NYSTATIN SUSP 5 ML CUP PO SCH ×3 (08:49→20:28)
[2016-09-30] MEDS: ARTIFICIAL TEARS 15 ML OPH BOTH EYES SCH ×4 (08:49→20:23)
[2016-09-30] MEDS: FAMOTIDINE 20 MG INJ IV SCH (08:50)
[2016-09-30] MEDS: FEBUXOSTAT 40 MG TABLET PO SCH (08:51)
[2016-09-30] MEDS: LACTOBACILLUS CHEW TAB PO SCH ×3 (08:51→20:23)
[2016-09-30] MEDS: FERROUS SULFATE (EC) 325 MG TAB PO SCH (08:51)
[2016-09-30] MEDS: COLCHICINE 0.6 MG TAB PO SCH (08:51)
[2016-09-30] MEDS: METOPROLOL 100 MG TAB PO SCH ×2 (08:52→20:22)
[2016-09-30] MEDS: AMLODIPINE 5 MG TAB PO SCH (08:52)
[2016-09-30] MEDS: TAMSULOSIN (SR) 0.4 MG CAP PO SCH (08:52)
[2016-09-30] MEDS: ASCORBIC ACID 500 MG TAB PO SCH (08:52)
[2016-09-30] MEDS: ALLOPURINOL 100 MG TAB PO SCH (08:52)
[2016-09-30] MEDS: PSYLLIUM 28% PACKET PO SCH (08:54)
[2016-09-30] MEDS: HEPARIN 5,000 UNIT/0.5 ML SYG SC SCH ×2 (08:56→20:38)
[2016-09-30 08:58] VITALS: BP 170/97; PULSE 86
[2016-09-30] MEDS: CEFEPIME 1GM/50 ML (PMX) 50 ML IVPB SCH ×2 (08:58→20:26)
[2016-09-30] MEDS: SOD CHLORIDE 0.9% 1,000 ML IV SCH ×2 (10:28→20:23)
[2016-09-30 11:00] VITALS: BP 155/82; PULSE 87
[2016-09-30] MEDS ORDERED: hydrALAzine 20 MG INJ IV PRN (13:30)
[2016-09-30 14:30] VITALS: BP 156/88; PULSE 88
--- NOTE | 2016-09-30 18:31 | RADRPT ---
PROCEDURE: X-RAY LEFT KNEE CLINICAL INDICATION: Left knee tenderness and swelling. TECHNIQUE: Three views of the left knee are available for review. COMPARISON: None available FINDINGS: There are erosive changes of the medial tibial plateau and also of the tibia at the notch and at the popliteus tendon insertion on the lateral femur. There is also a joint effusion. Overall findings suggest the presence of gout. No acute fractures seen. No radiopaque foreign body identified. Mod erate arthrosis changes of the patellofemoral joint including joint space narrowing and osteophyte f ormation. IMPRESSION: 1. Findings suggesting the presence of gout including chronic erosive changes and a joint effusion consistent with synovitis. 2. Moderate patellofemoral arthrosis. RPTAT: XX .Shade Oquendo MD, Date Time Electronically viewed and signed by .Shade Oquendo MD, on 09/30/2016 18:30 .T/
[2016-09-30 20:00] VITALS: BP 164/87; RESP 20
[2016-09-30] MEDS: ATORVASTATIN 10 MG TAB PO SCH (20:23)
[2016-10-01] MEDS: VANCOMYCIN HCL 250 MG/5ML POSYG PO SCH ×5 (00:20→23:48)
--- NOTE | 2016-10-01 01:20 | PN ---
DATE: 09/30/2016 INTERNAL MEDICINE FOLLOWUP NOTE BRIEF HISTORY: Followup on 66-year-old gentleman with chronic Potter catheter, urinary tract infectio n. Patient with a history of craniectomy for hemorrhagic CVA. The patient is status post ventriculo peritoneal shunt. The patient also with G-tube feeding. However, patient was tolerating a regular p.o. diet at home. Patient also with history of gout and left knee effusion. The patient is curren tly awake to name and situation. The patient denies any fever, complains of left knee pain and left wrist pain associated with a gout flare-up. The patient complains of nausea, however, denies any em esis. Denies fever, chills. The patient's daughter is at the bedside who has provided history. Sta lázaro that patient was at home since March of this year, before that he was hospitalized for various reasons. Until a recent admission patient was in his regular state. OBJECTIVE: VITAL SIGNS: Temperature is 98.1. Pulse is 70, blood pressure 149/79, respiratory rate 20, oxygen saturation is 96% on 2 liters nasal cannula. HEENT: Head is normocephalic, atraumatic. Pupils equal, round, reactive to light and accommodation . Oral mucosa is pink and moist. NECK: Supple. No cervical lymphadenopathy, no thyromegaly. CHEST: Lungs clear bilaterally. CARDIOVASCULAR: Normal S1, S2. No murmurs. ABDOMEN: Round, soft, nondistended, bowel sounds present. Patient has a G-tube with intact stoma. EXTREMITIES: The patient had no edema. The patient has left knee tenderness and mild swelling. GENITOURINARY: The patient has a Potter catheter. SKIN: No rash, petechiae noted. NEUROLOGIC: The patient is awake, alert and oriented to name and situation. Otherwise, pleasantly confused, follows commands. ASSESSMENT AND PLAN: 1. Urinary tract infection with urine culture positive for Klebsiella pneumoniae and another gram-n egative afsaneh organism. Continue patient on cefepime. 2. Acute on chronic encephalopathy secondary to urinary tract infection on admission. HOSPITAL COURSE: 1. The patient underwent a brain CT on admission which did not show any evidence of acute intracran ial hemorrhage, infarct or acute intracranial pathology. 2. Status post ventricular peritoneal shunt per CT scan without any hydrocephalus. No acute issue s. 3. Gout. Continue patient on allopurinol and colchicine and Uloric. 4. Chronic Potter catheter. Will change Potter. Continue to monitor urine output. 5. Chronic kidney disease. 6. Hypertension. Continue Lopressor. 7. Hyperlipidemia. Continue Lipitor. 8. Will continue heparin for deep venous thrombosis prophylaxis and Protonix for peptic ulcer disea se prophylaxis. Further recommendations based on clinical course. Plan of care discussed with Dr. Cartagena. Dictated By: MARIA ANTONIA GERMAN CASING MACHINE OPERATOR for VANESSA CARTAGENA MD SR/NTS Conf#: [id number] DID#: [id number]
[2016-10-01] MEDS: PANTOPRAZOLE (EC) 40 MG TAB PO SCH (05:27)
[2016-10-01] MEDS: SOD CHLORIDE 0.9% 1,000 ML IV SCH ×2 (05:28→16:50)
[2016-10-01 06:28] LABS: BASOPHIL # 0.1 10^3/ul (0.0-0.1); EOSINOPHILS # 0.2 10^3/ul (0.0-0.5); EOSINOPHILS % 3.6 % (0.0-7.0); HEMATOCRIT 34.3 % (42.0-52.0); HEMOGLOBIN 11.7 g/dl (14.0-18.0); LYMPHOCYTES # 1.9 10^3/ul (0.8-2.9); LYMPHOCYTES % 37.8 % (15.0-51.0); MEAN CORPUSCULAR HEMOGLOBIN 30.2 pg (29.0-33.0); MEAN CORPUSCULAR HGB CONC 34.3 g/dl (32.0-37.0); MONOCYTE # 0.6 10^3/ul (0.3-0.9); MONOCYTES % 12.7 % (0.0-11.0); NEUTROPHIL # 2.3 10^3/ul (1.6-7.5); NEUTROPHILS % 44.9 % (39.0-77.0); PLATELET COUNT 259 10^3/UL (140-440); RED BLOOD COUNT 3.89 10^6/ul (4.70-6.10); RED CELL DISTRIBUTION WIDTH 15.4 % (11.5-14.5); UNCORRECTED WBC 5.1 10^3/ul (4.8-10.8); WHITE BLOOD COUNT 5.1 10^3/ul (4.8-10.8)
[2016-10-01 06:29] LABS: CONDITION 1; LH ANALYZER COMMENTS 1
[2016-10-01 06:46] LABS: POTASSIUM 3.9 mmol/L (3.5-5.1)
[2016-10-01 06:49] LABS: CREATININE 2.16 mg/dl (0.61-1.24)
[2016-10-01 06:50] LABS: CALCIUM 9.3 mg/dl (8.4-10.2)
[2016-10-01 07:57] VITALS: BP 181/92; RESP 20
[2016-10-01] MEDS: INSULIN ASPART [NOVOLOG] 3 ML PEN SC SCH ×4 (08:00→20:23)
[2016-10-01] MEDS: HYDROmorphONE 1 MG/ML SYG IV PRN ×3 (08:05→16:45)
[2016-10-01] MEDS: AMLODIPINE 5 MG TAB PO SCH (08:06)
[2016-10-01] MEDS: METOPROLOL 100 MG TAB PO SCH ×2 (08:06→20:25)
[2016-10-01 09:00] VITALS: BP 150/78; RESP 18
[2016-10-01] MEDS: ARTIFICIAL TEARS 15 ML OPH BOTH EYES SCH ×4 (09:34→21:48)
[2016-10-01] MEDS: COLCHICINE 0.6 MG TAB PO SCH (09:34)
[2016-10-01] MEDS: FERROUS SULFATE (EC) 325 MG TAB PO SCH (09:34)
[2016-10-01] MEDS: ASCORBIC ACID 500 MG TAB PO SCH (09:34)
[2016-10-01] MEDS: LACTOBACILLUS CHEW TAB PO SCH ×3 (09:34→20:24)
[2016-10-01] MEDS: ALLOPURINOL 100 MG TAB PO SCH (09:34)
[2016-10-01] MEDS: FEBUXOSTAT 40 MG TABLET PO SCH (09:34)
[2016-10-01] MEDS: TAMSULOSIN (SR) 0.4 MG CAP PO SCH (09:34)
[2016-10-01] MEDS: PSYLLIUM 28% PACKET PO SCH (09:35)
[2016-10-01] MEDS: HEPARIN 5,000 UNIT/0.5 ML SYG SC SCH ×2 (09:39→20:34)
[2016-10-01] MEDS: HYDROCODONE/APAP (10/325) TAB PO PRN (11:25)
[2016-10-01] MEDS: CEFEPIME 1GM/50 ML (PMX) 50 ML IVPB SCH (12:34)
[2016-10-01] MEDS: NYSTATIN SUSP 5 ML CUP PO SCH ×3 (12:36→20:25)
--- NOTE | 2016-10-01 19:08 | PN ---
Date/Time of Note Date/Time of Note DATE: 10/01/16 TIME: 19:04 Assessment/Plan VTE Prophylaxis VTE Prophylaxis Intervention: SCD's Lines/Catheters IV [facility]ter [facility] (from [facility] Peripheral IV Central line still needed: Yes Urinary Cath still in place: Yes Reason Cath still needed: urinary retention Assessment/Plan Chief Complaint/Hosp Course ASSESSMENT AND PLAN: - Urinary tract infection with urine culture positive for Klebsiella pneumoniae and another gram-negative afsaneh organism. Continue patient on cefepime. - Acute on chronic encephalopathy secondary to urinary tract infection on admission, resolving. The patient underwent a brain CT on admission which did not show any evidence of acute intracranial hemorrhage, infarct or acute intracranial pathology. - Status post ventricular peritoneal shunt per CT scan without any hydrocephalus. No acute issues. - Gout. Continue patient on allopurinol and colchicine and Uloric. - Chronic Potter catheter. Will change Potter. Continue to monitor urine output. - Chronic kidney disease. - Hypertension. Continue Lopressor. - Hyperlipidemia. Continue Lipitor. Continue heparin for deep venous thrombosis prophylaxis and Protonix for peptic ulcer disease prophylaxis. Further recommendations based on clinical course. Plan of care discussed with Dr. Cartagena. Problems: Subjective 24 Hr Interval Summary Free Text/Dictation Patient denies any nausea vomiting remains afebrile. According to patient's daughter at the bedside patient's neurological status is at his baseline. Exam/Review of Systems Vital Signs Vitals Vital Signs Date Time Temp Pulse Resp B/P Pulse Ox O2 Delivery O2 Flow Rate FiO2 10/01/16 09:00 18 150/78 10/01/16 07:57 98.0 80 95 09/28/16 14:00 Room Air Intake and Output 09/30/16 09/30/16 10/01/16 15:00 23:00 07:00 Intake Total 1050 ml 1550 ml 1360 ml Output Total 2200 ml 1300 ml Balance 1050 ml -650 ml 60 ml Exam HEENT: Head is normocephalic, atraumatic. Pupils equal, round, reactive to light and accommodation. Oral mucosa is pink and moist. NECK: Supple. No cervical lymphadenopathy, no thyromegaly. CHEST: Lungs clear bilaterally. CARDIOVASCULAR: Normal S1, S2. No murmurs. ABDOMEN: Round, soft, nondistended, bowel sounds present. Patient has a G- tube with intact stoma. EXTREMITIES: The patient had no edema. The patient has left knee tenderness and mild swelling. GENITOURINARY: The patient has a Potter catheter. SKIN: No rash, petechiae noted. NEUROLOGIC: The patient is awake, alert and oriented to name and situation. Results Result Diagram: 10/01/16 0550 10/01/16 0550 Results 24 hrs Laboratory Tests Test 09/30/16 20:19 10/01/16 05:50 10/01/16 08:00 10/01/16 12:34 Bedside Glucose 125 96 136 Anion Gap 16 Basophils # 0.1 Basophils % 1.0 Blood Morphology Comment Blood Urea Nitrogen 26 H Calcium Level 9.3 Carbon Dioxide Level 24 Chloride Level 107 Creatinine 2.16 H Eosinophils # 0.2 Eosinophils % 3.6 Glucose Level 90 Hematocrit 34.3 L Hemoglobin 11.7 L Lymphocytes # 1.9 Lymphocytes % 37.8 Mean Corpuscular Hemoglobin 30.2 Mean Corpuscular Hemoglobin Concent 34.3 Mean Corpuscular Volume 88.0 Mean Platelet Volume 8.0 Monocytes # 0.6 Monocytes % 12.7 H Neutrophils # 2.3 Neutrophils % 44.9 Nucleated Red Blood Cells # 0.0 Nucleated Red Blood Cells % 0.0 Platelet Count 259 Potassium Level 3.9 Red Blood Count 3.89 L Red Cell Distribution Width 15.4 H Sodium Level 143 White Blood Count 5.1 # Test 10/01/16 17:21 Bedside Glucose 130 Medications Medications Current Medications Sodium Chloride (NS) 1,000 ml @ 100 mls/hr Q10H IV Last administered on 05:28; Admin Dose 100 MLS/HR; Start 09/28/16 at 08:50 Ondansetron HCl (Zofran Inj) 4 mg Q6H PRN IV NAUSEA AND/OR VOMITING Last administered on 09/30/16 12:48; Admin Dose 4 MG; Start 09/28/16 at 09:00 Oxycodone/ Acetaminophen (Percocet (5/ 325)) 1 tab Q6H PRN PO PAIN Last administered on 09/29/16 11:51; Admin Dose 1 TAB; Start 09/28/16 at 12:00 Acetaminophen (Tylenol Tab) 500 mg Q6H PRN PO PAIN AND OR ELEVATED TEMP; Start 09/28/16 at 11:30 Allopurinol (Zyloprim) 100 mg DAILY PO Last administered on 10/01/16 09:34; Admin Dose 100 MG; Start 09/29/16 at 09:00 Amlodipine Besylate (Norvasc) 5 mg DAILY PO Last administered on 10/01/16 08: 06; Admin Dose 5 MG; Start 09/29/16 at 09:00 Eye Lubricant (Artificial Tears Oph) 2 drop QID BOTH EYES Last administered on 10/01/16 18:35; Admin Dose 2 DROP; Start 09/28/16 at 13:00 Atorvastatin Calcium (Lipitor) 10 mg QHS PO Last administered on 09/30/16 20: 23; Admin Dose 10 MG; Start 09/28/16 at 21:00 Febuxostat (Uloric) 40 mg DAILY PO Last administered on 10/01/16 09:34; Admin Dose 40 MG; Start 09/29/16 at 09:00 Lactobacillus Acidoph/Bulgaricus (Floranex) 1 tab TID PO Last administered on 14:38; Admin Dose 1 TAB; Start 09/28/16 at 13:00 Metoprolol Tartrate (Lopressor) 100 mg BID PO Last administered on 10/01/16 08 :06; Admin Dose 100 MG; Start 09/28/16 at 21:00 Nystatin (Nystatin Susp) 5 ml TID PO Last administered on 10/01/16 12:36; Admin Dose 5 ML; Start 09/28/16 at 13:00 Pantoprazole (Protonix Tab) 40 mg DAILY@06 PO Last administered on 10/01/16 05 :27; Admin Dose 40 MG; Start 09/29/16 at 06:00 Psyllium Hydrophilic Mucilloid (Metamucil) 1 pkt DAILY PO Last administered on 10/01/16 09:35; Admin Dose 1 PKT; Start 09/29/16 at 09:00 Tamsulosin HCl (Flomax) 0.4 mg DAILY PO Last administered on 10/01/16 09:34; Admin Dose 0.4 MG; Start 09/29/16 at 09:00 Vancomycin HCl (Vancomycin Oral Syringe) 250 mg Q6 PO Last administered on 10/01 18:34; Admin Dose 250 MG; Start 09/28/16 at 13:00 Miscellaneous Information 1 ea NOTE XX ; Start 09/28/16 at 12:00 Glucose (Glutose) 15 gm Q15M PRN PO DECREASED GLUCOSE; Start 09/28/16 at 12:00 Glucose (Glutose) 22.5 gm Q15M PRN PO DECREASED GLUCOSE; Start 09/28/16 at 12: 00 Dextrose (D50w Syringe) 25 ml Q15M PRN IV DECREASED GLUCOSE; Start 09/28/16 at 12:00 Dextrose (D50w Syringe) 50 ml Q15M PRN IV DECREASED GLUCOSE; Start 09/28/16 at 12:00 Glucagon (Glucagen) 1 mg Q15M PRN IM DECREASED GLUCOSE; Start 09/28/16 at 12:00 Glucose (Glutose) 15 gm Q15M PRN BUCCAL DECREASED GLUCOSE; Start 09/28/16 at 12 :00 Colchicine (Colchicine) 0.6 mg DAILY PO Last administered on 10/01/16 09:34; Admin Dose 0.6 MG; Start 09/29/16 at 09:00 Ascorbic Acid (Vitamin C) 500 mg DAILY PO Last administered on 10/01/16 09:34 ; Admin Dose 500 MG; Start 09/28/16 at 12:13 Clonidine (Catapres) 0.1 mg Q12H PRN PO SBP ABOVE 160 Last administered on 09/30 12:56; Admin Dose 0.1 MG; Start 09/28/16 at 12:14 Colchicine (Colchicine) 0.6 mg DAILY PRN PO gout; Start 09/28/16 at 12:14 Ferrous Sulfate (Ferrous Sulfate (Ec)) 325 mg DAILY PO Last administered on 09:34; Admin Dose 325 MG; Start 09/29/16 at 09:00 Hydralazine HCl (Apresoline) 25 mg Q8H PRN PO SPB ABOVE 160 Last administered on 09/30/16 08:22; Admin Dose 25 MG; Start 09/28/16 at 12:16 Acetaminophen/ Hydrocodone Bitart ([place] (10)) 1 tab Q4H PRN PO PAIN Last administered on 10/01/16 11:25; Admin Dose 1 TAB; Start 09/28/16 at 12:16 Lactulose (Enulose) 20 gm Q8 PRN PO CONSTIPATION; Start 09/28/16 at 12:17 Heparin Sodium (Porcine) (Heparin (5000 Units/0.5 ml)) 5,000 unit Q12 SC Last administered on 10/01/16 09:39; Admin Dose 5,000 UNIT; Start 09/29/16 at 09:00 Hydromorphone HCl (Dilaudid) 0.5 mg Q4H PRN IV PAIN Last administered on 16:45; Admin Dose 0.5 MG; Start 09/29/16 at 11:30 Hydralazine HCl 10 mg 10 mg Q6H PRN IV if BP > 170; Start 09/30/16 at 13:30 Ceftriaxone Sodium (Rocephin) 50 ml @ 100 mls/hr Q24H IVPB ; Start 10/02/16 at 09:00 MARIA ANTONIA GERMAN Oct 01, 2016 19:08
[2016-10-01 20:22] VITALS: BP 181/106; RESP 20
[2016-10-01] MEDS: ATORVASTATIN 10 MG TAB PO SCH (20:24)
[2016-10-01] MEDS: QUETIAPINE 100 MG TAB PO SCH (20:25)
[2016-10-01] MEDS ORDERED: QUETIAPINE 100 MG TAB PO SCH (21:00)
[2016-10-01 22:54] VITALS: BP 140/82
[2016-10-02] MEDS: SOD CHLORIDE 0.9% 1,000 ML IV SCH ×2 (02:02→02:50)
[2016-10-02] MEDS: VANCOMYCIN HCL 250 MG/5ML POSYG PO SCH ×3 (05:46→12:05)
[2016-10-02] MEDS: PANTOPRAZOLE (EC) 40 MG TAB PO SCH (05:46)
[2016-10-02 06:17] LABS: POTASSIUM 3.9 mmol/L (3.5-5.1)
[2016-10-02 06:19] LABS: CREATININE 2.19 mg/dl (0.61-1.24)
[2016-10-02 06:20] LABS: CALCIUM 9.7 mg/dl (8.4-10.2)
[2016-10-02] MEDS ORDERED: DEXT1CAP PO (07:38)
[2016-10-02 07:59] VITALS: BP 189/94; RESP 20
[2016-10-02] MEDS: INSULIN ASPART [NOVOLOG] 3 ML PEN SC SCH ×4 (08:00→20:59)
[2016-10-02] MEDS: TAMSULOSIN (SR) 0.4 MG CAP PO SCH (08:39)
[2016-10-02] MEDS: FERROUS SULFATE (EC) 325 MG TAB PO SCH (08:39)
[2016-10-02] MEDS: AMLODIPINE 5 MG TAB PO SCH (08:40)
[2016-10-02] MEDS: METOPROLOL 100 MG TAB PO SCH ×2 (08:40→20:06)
[2016-10-02] MEDS: LACTOBACILLUS CHEW TAB PO SCH ×3 (08:40→20:06)
[2016-10-02] MEDS: ALLOPURINOL 100 MG TAB PO SCH (08:40)
[2016-10-02] MEDS: ASCORBIC ACID 500 MG TAB PO SCH (08:40)
[2016-10-02] MEDS: NYSTATIN SUSP 5 ML CUP PO SCH ×3 (08:40→20:06)
[2016-10-02] MEDS: FEBUXOSTAT 40 MG TABLET PO SCH (08:41)
[2016-10-02] MEDS: CEFTRIAXONE 1 GM/NS 50 ML IVPB SCH (08:42)
[2016-10-02] MEDS: PSYLLIUM 28% PACKET PO SCH (08:44)
[2016-10-02] MEDS: HEPARIN 5,000 UNIT/0.5 ML SYG SC SCH ×2 (08:59→20:11)
[2016-10-02 09:07] LABS: BASOPHIL # 0.1 10^3/ul (0.0-0.1); EOSINOPHILS # 0.2 10^3/ul (0.0-0.5); HEMATOCRIT 36.1 % (42.0-52.0); HEMOGLOBIN 12.4 g/dl (14.0-18.0); LYMPHOCYTES # 2.3 10^3/ul (0.8-2.9); LYMPHOCYTES % 45.3 % (15.0-51.0); MEAN CORPUSCULAR HEMOGLOBIN 30.2 pg (29.0-33.0); MEAN CORPUSCULAR HGB CONC 34.3 g/dl (32.0-37.0); MEAN CORPUSCULAR VOLUME 88.2 fl (82.0-101.0); MEAN PLATELET VOLUME 8.5 fl (7.4-10.4); MONOCYTE # 0.5 10^3/ul (0.3-0.9); MONOCYTES % 10.5 % (0.0-11.0); NEUTROPHIL # 2.1 10^3/ul (1.6-7.5); NEUTROPHILS % 40.2 % (39.0-77.0); PLATELET COUNT 292 10^3/UL (140-440); RED BLOOD COUNT 4.09 10^6/ul (4.70-6.10); RED CELL DISTRIBUTION WIDTH 15.4 % (11.5-14.5); UNCORRECTED WBC 5.1 10^3/ul (4.8-10.8); WHITE BLOOD COUNT 5.1 10^3/ul (4.8-10.8)
[2016-10-02 09:10] LABS: CONDITION 1; LH ANALYZER COMMENTS 1
[2016-10-02] MEDS: ARTIFICIAL TEARS 15 ML OPH BOTH EYES SCH ×4 (09:10→20:05)
[2016-10-02] MEDS: COLCHICINE 0.6 MG TAB PO SCH (09:10)
[2016-10-02 11:01] VITALS: BP 144/95; PULSE 87; RESP 16
[2016-10-02] MEDS ORDERED: AMLODIPINE 10 MG TAB PO ONE (12:30)
--- NOTE | 2016-10-02 12:35 | CONS ---
DATE OF ADMISSION: 09/28/2016 DATE OF CONSULTATION: 10/02/2016 NEPHROLOGY CONSULTATION REFERRING PHYSICIAN: Hoang Cartagena MD REASON FOR CONSULTATION: Acute kidney injury versus acute kidney injury on chronic kidney disease. HISTORY OF PRESENT ILLNESS: This is a 66-year-old male who has a past medical history of hypertensi on, history of a previous CVA, has a G-tube for feeding purposes, history of gout, history of chroni c kidney disease secondary to diabetic and hypertensive nephropathy. The patient has a previous his tory of craniectomy and a shunt. He presented at this time to the [facility] room on 09/28/2016 for possible concern about urinary tract infection. He was started on intr avenous antibiotics. The patient has a gout history. He presented with a creatinine of 2.7 which h as been improved to 2.19, but the patient continues to have uremia and elevated creatinine. Renal h as been consulted to evaluate for acute versus acute on chronic kidney disease. The patient had a u rine toxicology negative for any drugs. The patient was hemodynamically stable. Currently the vital signs are stable and the blood pressure has been in the range of 144 to 190s. It is not very well controlled during the hospitalizations. Patient had a workup done including a CT brain negative for any acute findings, and the patient was last admitted to the [facility] in January 2016. At that time, the patient had a CT abdomen and pelvis which was done in January 2016 which shows a Potter catheter with status post cholec ystectomy and has a G-tube with a ventriculoperitoneal shunt in place, but no evidence of any chroni c kidney disease on the CAT scan. REVIEW OF SYSTEMS: As per HPI. PAST MEDICAL HISTORY: Notable for hypertension, history of CVA, history of previous craniotomy and had a shunt in place. History of G-tube placement. History of chronic kidney disease, possibly sec ondary to diabetic nephropathy, unknown stage. History of gout. History of hypertension. History of hyperlipidemia. PAST SURGICAL HISTORY: History of craniotomy, history of a CORRECTIONAL NURSE shunt, history of G-tube in place. SOCIAL HISTORY: No smoking, alcohol, or recreational drug use. PHYSICAL EXAMINATION: VITAL SIGNS: Temperature 97.9, heart rate is 87, respirations 16, blood pressure 144/95, saturation 99% on room air. GENERAL: Awake, alert, in no distress. HEENT: Normal. Oropharynx clear. NECK: Supple, no JVD, no lymphadenopathy. LUNGS: Decreased breath sounds on the right middle lobe and right lower lobe. No wheezing. HEART: S1, S2, with regular rhythm. ABDOMEN: Soft. G-tube in place, site is clear. No erythema. EXTREMITIES: No clubbing, cyanosis, or edema. NEUROLOGICAL: Nonfocal, intact. PSYCHIATRIC: Appropriate affect and mood. LABORATORY DATA AND DIAGNOSTIC IMAGING: WBC 5.1, hemoglobin 12.4, platelet count 292. Sodium 147, potassium 3.9, chloride 109, bicarbonate 23, BUN 23, creatinine 2.1, glucose 94, calcium 9.7. Blood sugar has been in 130s to 140s. PT, PTT, INR normal. Urinalysis shows 2+ leukocyte esterase, 1+ p rotein. Urine toxicology is negative. The patient had a urine culture done in the emergency room w hich grew Klebsiella pneumoniae and Providencia. Blood culture x2 is negative. IMPRESSION: This is a 66-year-old male with: 1. Acute kidney injury on chronic kidney disease stage III, likely secondary to a prerenal azotemia and secondary to urinary tract infections. 2. Acute urinary tract infection with urine culture growing Providencia and Klebsiella pneumoniae. 3. History of chronic kidney disease stage III to IV secondary to a diabetic and hypertensive nephr opathy. 4. Acute hypernatremia, likely secondary to a free water deficit. 5. History of hypertension. 6. History of diabetes mellitus. 7. History of benign prostatic hypertrophy. 8. History of gout. 9. Accelerated hypertension, very poorly controlled while being in the hospital. 10. History of a previous craniotomy and had a CORRECTIONAL NURSE shunt in place. 11. History of previous cerebrovascular accident with a G-tube in place for nutritional purposes. PLAN: 1. Thank you, Dr. Cartagena, for this consultation. I will change the patient's IV fluids to half N S to run at 100 mL/hour. 2. I will order a renal ultrasound for further workup of chronic kidney disease to assess the kidne y size and to rule out hydronephrosis. 3. IV antibiotics as per primary care physicians for urinary tract infections. 4. Continue the allopurinol 400 mg p.o. daily for gout and Flomax 0.4 mg p.o. daily for BPH. 5. Diabetes management, controlled as per the primary care physician. 6. I will add the patient amlodipine 10 mg p.o. daily for better blood pressure control since his b lood pressure has been running on the higher side. 7. The patient is currently seen in the med/surg floor, and he will be followed up along with the [facility] service. Once again, thank you Dr. Cartagena for this consultation. Total time spent in this patient's evaluations, making the plan, communicating, and updating the pat bamnt's family and the patient with the nursing communication took more than 60 minutes to complete t he consultation. Dictated By: NI WATSON MD, KP/GORGE Conf#: [id number] DID#: [id number]
[2016-10-02] MEDS: SOD CHLORIDE 0.45% 1,000 ML IV SCH (13:22)
--- NOTE | 2016-10-02 13:59 | PN ---
DATE: 10/02/2016 INFECTIOUS DISEASE PROGRESS NOTE SUBJECTIVE: No acute changes. The patient is alert, feels better. Looks comfortable, no fevers. LABORATORY DATA: WBC 5.1, no shift, no bands. BUN 23, creatinine 2.19. ANTIMICROBIALS: 1. Rocephin. 2. Oral vancomycin. 3. Status post cefepime. MICROBIOLOGY: Urine culture grew Klebsiella pneumoniae and Providencia stuartii. PHYSICAL EXAMINATION: GENERAL: This is a well-nourished, well-developed elderly man who is alert, in no distress. HEENT: Head atraumatic, normocephalic. Sclerae anicteric. Buccal mucosa pink. NECK: Supple, trachea midline. CHEST: Rise symmetrical. Breath sounds clear. HEART: S1, S2. ABDOMEN: Soft, bowel sounds present. EXTREMITIES: No cyanosis. ASSESSMENT: 1. Polymicrobial urinary tract infection. 2. Acute on chronic kidney disease. 3. Diabetes. 4. Hypertension. 5. History of BPH. PLAN: The patient remains stable. We will continue him on IV Rocephin, discontinue oral vancomycin . Follow nephrology recommendations. Dictated By: ANGI ZEPEDA BUCKLE COVERER for DANIEL HAYES/GORGE Conf#: [id number] DID#: [id number]
--- NOTE | 2016-10-02 14:36 | RADRPT ---
PROCEDURE: Renal US. CLINICAL INDICATION: ACUTE RENAL FAILURE, ELEVATED CREATININE TECHNIQUE: Multiple sonographic images of the kidneys were obtained. The images were reviewed on a PACS workstation. COMPARISON: No prior studies are available for comparison. FINDINGS: The kidneys are well visualized. The right kidney measures 9.4 x 4.5 x 4.3 cm in size. The left kidn ey measures 9.1 x 5.5 x 4.0 cm in size. Bilateral cortical thinning and increased echogenicity comp atible with chronic medical renal disease.. There are no focal areas of abnormal echogenicity. There is no evidence for obstructive uropathy. Potter catheter within decompressed bladder. IMPRESSION: Bilateral cortical thinning and increased echogenicity compatible with chronic medical renal disease . No evidence of hydronephrosis, nephrolithiasis or obstructive uropathy. RPTAT:AAJJ Physician Elliot Date Time Electronically viewed and signed by Physician Elliot on 10/02/2016 14:36 MILAD/
[2016-10-02] MEDS: HYDROCODONE/APAP (10/325) TAB PO PRN (15:17)
--- NOTE | 2016-10-02 18:17 | PN ---
Date/Time of Note Date/Time of Note DATE: 10/02/16 TIME: 18:12 Assessment/Plan VTE Prophylaxis VTE Prophylaxis Intervention: SCD's Lines/Catheters IV [facility]ter Type (from [facility]): Peripheral IV Urinary Cath still in place: Yes Reason Cath still needed: urinary retention Assessment/Plan Chief Complaint/Hosp Course ASSESSMENT AND PLAN: - Urinary tract infection with urine culture positive for Klebsiella pneumoniae and another gram-negative afsaneh organism. Continue patient on Rocephin. - Acute on chronic encephalopathy secondary to urinary tract infection on admission, resolved. The patient underwent a brain CT on admission which did not show any evidence of acute intracranial hemorrhage, infarct or acute intracranial pathology. - Status post ventricular peritoneal shunt per CT scan without any hydrocephalus. No acute issues. - Gout. Continue patient on allopurinol and colchicine and Uloric. - Chronic Potter catheter. Continue to monitor urine output. - COLLIN on Chronic kidney disease. Dr. Ramsey is following in nephrology consultation. - Hypertension. Continue Lopressor and Norvasc - Hyperlipidemia. Continue Lipitor. Continue heparin for deep venous thrombosis prophylaxis and Protonix for peptic ulcer disease prophylaxis. Further recommendations based on clinical course. Plan of care discussed with Dr. Cartagena. Problems: Subjective 24 Hr Interval Summary Free Text/Dictation Patient has an episode of elevated blood pressure, currently stable, denies any nausea vomiting, remains afebrile. Exam/Review of Systems Vital Signs Vitals Vital Signs Date Time Temp Pulse Resp B/P Pulse Ox O2 Delivery O2 Flow Rate FiO2 10/02/16 11:01 87 16 144/95 Room Air 10/02/16 07:59 97.9 99 Intake and Output 10/01/16 10/01/16 10/02/16 15:00 23:00 07:00 Intake Total 50 ml 2060 ml 1350 ml Output Total 1500 ml 2000 ml Balance 50 ml 560 ml -650 ml Exam HEENT: Head is normocephalic, atraumatic. Pupils equal, round, reactive to light and accommodation. Oral mucosa is pink and moist. NECK: Supple. No cervical lymphadenopathy, no thyromegaly. CHEST: Lungs clear bilaterally. CARDIOVASCULAR: Normal S1, S2. No murmurs. ABDOMEN: Round, soft, nondistended, bowel sounds present. Patient has a G- tube with intact stoma. EXTREMITIES: The patient had no edema. The patient has left knee tenderness and mild swelling. GENITOURINARY: The patient has a Potter catheter. SKIN: No rash, petechiae noted. NEUROLOGIC: The patient is awake, alert and oriented to name and situation. Results Result Diagram: 10/02/16 0510 10/02/16 0510 Results 24 hrs Laboratory Tests Test 10/01/16 20:21 10/02/16 05:10 10/02/16 07:43 10/02/16 11:44 Bedside Glucose 138 90 144 Anion Gap 19 H Basophils # 0.1 Basophils % 1.0 Blood Morphology Comment Blood Urea Nitrogen 23 H Calcium Level 9.7 Carbon Dioxide Level 23 Chloride Level 109 Creatinine 2.19 H Eosinophils # 0.2 Eosinophils % 3.0 Glucose Level 94 Hematocrit 36.1 L Hemoglobin 12.4 L Lymphocytes # 2.3 Lymphocytes % 45.3 Mean Corpuscular Hemoglobin 30.2 Mean Corpuscular Hemoglobin Concent 34.3 Mean Corpuscular Volume 88.2 Mean Platelet Volume 8.5 Monocytes # 0.5 Monocytes % 10.5 Neutrophils # 2.1 Neutrophils % 40.2 Nucleated Red Blood Cells # 0.0 Nucleated Red Blood Cells % 0.0 Platelet Count 292 Potassium Level 3.9 Red Blood Count 4.09 L Red Cell Distribution Width 15.4 H Sodium Level 147 H White Blood Count 5.1 Test 10/02/16 17:20 Bedside Glucose 137 Medications Medications Current Medications Ondansetron HCl (Zofran Inj) 4 mg Q6H PRN IV NAUSEA AND/OR VOMITING Last administered on 09/30/16 12:48; Admin Dose 4 MG; Start 09/28/16 at 09:00 Oxycodone/ Acetaminophen (Percocet (5/ 325)) 1 tab Q6H PRN PO PAIN Last administered on 09/29/16 11:51; Admin Dose 1 TAB; Start 09/28/16 at 12:00 Acetaminophen (Tylenol Tab) 500 mg Q6H PRN PO PAIN AND OR ELEVATED TEMP; Start 09/28/16 at 11:30 Allopurinol (Zyloprim) 100 mg DAILY PO Last administered on 10/02/16 08:40; Admin Dose 100 MG; Start 09/29/16 at 09:00 Amlodipine Besylate (Norvasc) 5 mg DAILY PO Last administered on 10/02/16 08: 40; Admin Dose 5 MG; Start 09/29/16 at 09:00 Eye Lubricant (Artificial Tears Oph) 2 drop QID BOTH EYES Last administered on 10/02/16 17:21; Admin Dose 2 DROP; Start 09/28/16 at 13:00 Atorvastatin Calcium (Lipitor) 10 mg QHS PO Last administered on 10/01/16 20: 24; Admin Dose 10 MG; Start 09/28/16 at 21:00 Febuxostat (Uloric) 40 mg DAILY PO Last administered on 10/02/16 08:41; Admin Dose 40 MG; Start 09/29/16 at 09:00 Lactobacillus Acidoph/Bulgaricus (Floranex) 1 tab TID PO Last administered on 12:05; Admin Dose 1 TAB; Start 09/28/16 at 13:00 Metoprolol Tartrate (Lopressor) 100 mg BID PO Last administered on 10/02/16 08 :40; Admin Dose 100 MG; Start 09/28/16 at 21:00 Nystatin (Nystatin Susp) 5 ml TID PO Last administered on 10/02/16 12:05; Admin Dose 5 ML; Start 09/28/16 at 13:00 Pantoprazole (Protonix Tab) 40 mg DAILY@06 PO Last administered on 10/02/16 05 :46; Admin Dose 40 MG; Start 09/29/16 at 06:00 Psyllium Hydrophilic Mucilloid (Metamucil) 1 pkt DAILY PO Last administered on 10/02/16 08:44; Admin Dose 1 PKT; Start 09/29/16 at 09:00 Tamsulosin HCl (Flomax) 0.4 mg DAILY PO Last administered on 10/02/16 08:39; Admin Dose 0.4 MG; Start 09/29/16 at 09:00 Miscellaneous Information 1 ea NOTE XX ; Start 09/28/16 at 12:00 Glucose (Glutose) 15 gm Q15M PRN PO DECREASED GLUCOSE; Start 09/28/16 at 12:00 Glucose (Glutose) 22.5 gm Q15M PRN PO DECREASED GLUCOSE; Start 09/28/16 at 12: 00 Dextrose (D50w Syringe) 25 ml Q15M PRN IV DECREASED GLUCOSE; Start 09/28/16 at 12:00 Dextrose (D50w Syringe) 50 ml Q15M PRN IV DECREASED GLUCOSE; Start 09/28/16 at 12:00 Glucagon (Glucagen) 1 mg Q15M PRN IM DECREASED GLUCOSE; Start 09/28/16 at 12:00 Glucose (Glutose) 15 gm Q15M PRN BUCCAL DECREASED GLUCOSE; Start 09/28/16 at 12 :00 Colchicine (Colchicine) 0.6 mg DAILY PO Last administered on 10/02/16 09:10; Admin Dose 0.6 MG; Start 09/29/16 at 09:00 Ascorbic Acid (Vitamin C) 500 mg DAILY PO Last administered on 10/02/16 08:40 ; Admin Dose 500 MG; Start 09/28/16 at 12:13 Clonidine (Catapres) 0.1 mg Q12H PRN PO SBP ABOVE 160 Last administered on 09/30 12:56; Admin Dose 0.1 MG; Start 09/28/16 at 12:14 Colchicine (Colchicine) 0.6 mg DAILY PRN PO gout; Start 09/28/16 at 12:14 Ferrous Sulfate (Ferrous Sulfate (Ec)) 325 mg DAILY PO Last administered on 08:39; Admin Dose 325 MG; Start 09/29/16 at 09:00 Hydralazine HCl (Apresoline) 25 mg Q8H PRN PO SPB ABOVE 160 Last administered on 09/30/16 08:22; Admin Dose 25 MG; Start 09/28/16 at 12:16 Acetaminophen/ Hydrocodone Bitart ([place] (10/325)) 1 tab Q4H PRN PO PAIN Last administered on 10/02/16 15:17; Admin Dose 1 TAB; Start 09/28/16 at 12:16 Lactulose (Enulose) 20 gm Q8 PRN PO CONSTIPATION; Start 09/28/16 at 12:17 Heparin Sodium (Porcine) (Heparin (5000 Units/0.5 ml)) 5,000 unit Q12 SC Last administered on 10/02/16 08:59; Admin Dose 5,000 UNIT; Start 09/29/16 at 09:00 Hydromorphone HCl (Dilaudid) 0.5 mg Q4H PRN IV PAIN Last administered on 16:45; Admin Dose 0.5 MG; Start 09/29/16 at 11:30 Hydralazine HCl 10 mg 10 mg Q6H PRN IV if BP > 170 Last administered on 21:50; Admin Dose 10 MG; Start 09/30/16 at 13:30 Ceftriaxone Sodium (Rocephin) 50 ml @ 100 mls/hr Q24H IVPB Last administered on 10/02/16 08:42; Admin Dose 100 MLS/HR; Start 10/02/16 at 09:00 Quetiapine Fumarate 100 mg 100 mg QHS PO Last administered on 10/01/16 20:25; Admin Dose 100 MG; Start 10/01/16 at 21:00 Sodium Chloride (1/2 NS) 1,000 ml @ 70 mls/hr [id number] IV Last administered on 10/02/16 13:22; Admin Dose 70 MLS/HR; Start 10/02/16 at 12:30 Amlodipine Besylate (Norvasc) 10 mg DAILY PO ; Start 10/03/16 at 09:00 MARIA ANTONIA GERMAN Oct 02, 2016 18:17
[2016-10-02 18:21] VITALS: BP 146/82; PULSE 61; RESP 16
[2016-10-02 19:50] VITALS: BP 159/82; PULSE 62; RESP 18
[2016-10-02] MEDS: ATORVASTATIN 10 MG TAB PO SCH (20:05)
[2016-10-02] MEDS: QUETIAPINE 100 MG TAB PO SCH (20:06)
[2016-10-03] MEDS: SOD CHLORIDE 0.45% 1,000 ML IV SCH ×3 (03:10→18:59)
[2016-10-03] MEDS: PANTOPRAZOLE (EC) 40 MG TAB PO SCH (06:09)
[2016-10-03 07:47] VITALS: BP 167/96; RESP 14
[2016-10-03] MEDS: INSULIN ASPART [NOVOLOG] 3 ML PEN SC SCH ×4 (08:00→21:00)
[2016-10-03] MEDS: COLCHICINE 0.6 MG TAB PO SCH (08:13)
[2016-10-03] MEDS: LACTOBACILLUS CHEW TAB PO SCH ×3 (08:13→21:38)
[2016-10-03] MEDS: HYDROCODONE/APAP (10/325) TAB PO PRN (08:13)
[2016-10-03] MEDS: ALLOPURINOL 100 MG TAB PO SCH (08:13)
[2016-10-03] MEDS: FEBUXOSTAT 40 MG TABLET PO SCH (08:13)
[2016-10-03] MEDS: ASCORBIC ACID 500 MG TAB PO SCH (08:13)
[2016-10-03] MEDS: FERROUS SULFATE (EC) 325 MG TAB PO SCH (08:13)
[2016-10-03] MEDS: PSYLLIUM 28% PACKET PO SCH (08:14)
[2016-10-03] MEDS: AMLODIPINE 10 MG TAB PO SCH (08:14)
[2016-10-03] MEDS: CEFTRIAXONE 1 GM/NS 50 ML IVPB SCH (08:15)
[2016-10-03] MEDS: AMLODIPINE 5 MG TAB PO SCH (08:15)
[2016-10-03 08:23] VITALS: BP 169/98; PULSE 80
[2016-10-03] MEDS: HEPARIN 5,000 UNIT/0.5 ML SYG SC SCH ×2 (08:24→21:46)
[2016-10-03] MEDS: TAMSULOSIN (SR) 0.4 MG CAP PO SCH (08:56)
[2016-10-03] MEDS: ARTIFICIAL TEARS 15 ML OPH BOTH EYES SCH ×4 (08:56→21:39)
[2016-10-03] MEDS: METOPROLOL 100 MG TAB PO SCH ×2 (08:56→21:39)
[2016-10-03] MEDS: NYSTATIN SUSP 5 ML CUP PO SCH ×3 (08:58→21:38)
[2016-10-03 09:01] VITALS: BP 151/81; PULSE 82
--- NOTE | 2016-10-03 09:40 | CONS ---
Date/Time of Note Date/Time of Note DATE: 10/03/16 TIME: 09:36 Assessment/Plan Assessment/Plan Additional Assessment/Plan 1. Acute kidney injury on chronic kidney disease stage III, likely secondary to a prerenal azotemia and secondary to urinary tract infections. 2. Acute urinary tract infection with urine culture growing Providencia and Klebsiella pneumoniae. 3. History of chronic kidney disease stage III to IV secondary to a diabetic and hypertensive nephropathy. 4. Acute hypernatremia, likely secondary to a free water deficit. 5. History of hypertension. 6. History of diabetes mellitus. 7. History of benign prostatic hypertrophy. 8. History of gout. 9. Accelerated hypertension, very poorly controlled while being in the hospital. 10. 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 11. History of previous cerebrovascular accident with a G-tube in place for nutritional purposes. PLAN: Cr stable, Na still high will ask free water 250 cc Q 4 hr Continue current care and IV abx as per ID will follow up Consultation Date/Type/Reason Admit Date/Time Sep 28, 2016 at 01:37 Initial Consult Date Sep Type of Consultation: NEPHROLOGY Reason for Consultation COLLIN on CKD, Referring Provider: VANESSA LOPES MD 24 HR Interval Summary Free Text/Dictation pt remained stable,afebrile, no complaints Exam/Review of Systems Vital Signs Vitals Vital Signs Date Time Temp Pulse Resp B/P Pulse Ox O2 Delivery O2 Flow Rate FiO2 10/03/16 09:01 82 151/81 10/03/16 07:47 98.0 14 99 10/02/16 19:50 Room Air Intake and Output 10/02/16 10/02/16 10/03/16 15:00 23:00 07:00 Intake Total 650 ml 2320 ml 1080 ml Output Total 2500 ml 1100 ml Balance 650 ml -180 ml -20 ml Exam GENERAL: Awake, alert, in no distress. HEENT: Normal. Oropharynx clear. NECK: Supple, no JVD, no lymphadenopathy. LUNGS: Decreased breath sounds on the right middle lobe and right lower lobe. No wheezing. HEART: S1, S2, with regular rhythm. ABDOMEN: Soft. G-tube in place, site is clear. No erythema. EXTREMITIES: No clubbing, cyanosis, or edema. NEUROLOGICAL: Nonfocal, intact. PSYCHIATRIC: Appropriate affect and mood. Results Result Diagram: 10/02/16 0510 10/02/16 0510 Results 24 hrs Laboratory Tests Test 10/02/16 11:44 10/02/16 17:20 10/02/16 20:57 10/03/16 08:00 Bedside Glucose 144 137 133 93 Medications Medications Current Medications Ondansetron HCl (Zofran Inj) 4 mg Q6H PRN IV NAUSEA AND/OR VOMITING Last administered on 09/30/16 12:48; Admin Dose 4 MG; Start 09/28/16 at 09:00 Oxycodone/ Acetaminophen (Percocet (5/ 325)) 1 tab Q6H PRN PO PAIN Last administered on 09/29/16 11:51; Admin Dose 1 TAB; Start 09/28/16 at 12:00 Acetaminophen (Tylenol Tab) 500 mg Q6H PRN PO PAIN AND OR ELEVATED TEMP; Start 09/28/16 at 11:30 Allopurinol (Zyloprim) 100 mg DAILY PO Last administered on 10/03/16 08:13; Admin Dose 100 MG; Start 09/29/16 at 09:00 Amlodipine Besylate (Norvasc) 5 mg DAILY PO Last administered on 10/03/16 08: 15; Admin Dose 5 MG; Start 09/29/16 at 09:00 Eye Lubricant (Artificial Tears Oph) 2 drop QID BOTH EYES Last administered on 10/03/16 08:56; Admin Dose 2 DROP; Start 09/28/16 at 13:00 Atorvastatin Calcium (Lipitor) 10 mg QHS PO Last administered on 10/02/16 20: 05; Admin Dose 10 MG; Start 09/28/16 at 21:00 Febuxostat (Uloric) 40 mg DAILY PO Last administered on 10/03/16 08:13; Admin Dose 40 MG; Start 09/29/16 at 09:00 Lactobacillus Acidoph/Bulgaricus (Floranex) 1 tab TID PO Last administered on 08:13; Admin Dose 1 TAB; Start 09/28/16 at 13:00 Metoprolol Tartrate (Lopressor) 100 mg BID PO Last administered on 10/03/16 08 :56; Admin Dose 100 MG; Start 09/28/16 at 21:00 Nystatin (Nystatin Susp) 5 ml TID PO Last administered on 10/03/16 08:58; Admin Dose 5 ML; Start 09/28/16 at 13:00 Pantoprazole (Protonix Tab) 40 mg DAILY@06 PO Last administered on 10/03/16 06 :09; Admin Dose 40 MG; Start 09/29/16 at 06:00 Psyllium Hydrophilic Mucilloid (Metamucil) 1 pkt DAILY PO Last administered on 10/03/16 08:14; Admin Dose 1 PKT; Start 09/29/16 at 09:00 Tamsulosin HCl (Flomax) 0.4 mg DAILY PO Last administered on 10/03/16 08:56; Admin Dose 0.4 MG; Start 09/29/16 at 09:00 Miscellaneous Information 1 ea NOTE XX ; Start 09/28/16 at 12:00 Glucose (Glutose) 15 gm Q15M PRN PO DECREASED GLUCOSE; Start 09/28/16 at 12:00 Glucose (Glutose) 22.5 gm Q15M PRN PO DECREASED GLUCOSE; Start 09/28/16 at 12: 00 Dextrose (D50w Syringe) 25 ml Q15M PRN IV DECREASED GLUCOSE; Start 09/28/16 at 12:00 Dextrose (D50w Syringe) 50 ml Q15M PRN IV DECREASED GLUCOSE; Start 09/28/16 at 12:00 Glucagon (Glucagen) 1 mg Q15M PRN IM DECREASED GLUCOSE; Start 09/28/16 at 12:00 Glucose (Glutose) 15 gm Q15M PRN BUCCAL DECREASED GLUCOSE; Start 09/28/16 at 12 :00 Colchicine (Colchicine) 0.6 mg DAILY PO Last administered on 10/03/16 08:13; Admin Dose 0.6 MG; Start 09/29/16 at 09:00 Ascorbic Acid (Vitamin C) 500 mg DAILY PO Last administered on 10/03/16 08:13 ; Admin Dose 500 MG; Start 09/28/16 at 12:13 Clonidine (Catapres) 0.1 mg Q12H PRN PO SBP ABOVE 160 Last administered on 09/30 12:56; Admin Dose 0.1 MG; Start 09/28/16 at 12:14 Colchicine (Colchicine) 0.6 mg DAILY PRN PO gout; Start 09/28/16 at 12:14 Ferrous Sulfate (Ferrous Sulfate (Ec)) 325 mg DAILY PO Last administered on 08:13; Admin Dose 325 MG; Start 09/29/16 at 09:00 Hydralazine HCl (Apresoline) 25 mg Q8H PRN PO SPB ABOVE 160 Last administered on 09/30/16 08:22; Admin Dose 25 MG; Start 09/28/16 at 12:16 Acetaminophen/ Hydrocodone Bitart ([place] (10)) 1 tab Q4H PRN PO PAIN Last administered on 10/03/16 08:13; Admin Dose 1 TAB; Start 09/28/16 at 12:16 Lactulose (Enulose) 20 gm Q8 PRN PO CONSTIPATION; Start 09/28/16 at 12:17 Heparin Sodium (Porcine) (Heparin (5000 Units/0.5 ml)) 5,000 unit Q12 SC Last administered on 10/03/16 08:24; Admin Dose 5,000 UNIT; Start 09/29/16 at 09:00 Hydromorphone HCl (Dilaudid) 0.5 mg Q4H PRN IV PAIN Last administered on 16:45; Admin Dose 0.5 MG; Start 09/29/16 at 11:30 Hydralazine HCl 10 mg 10 mg Q6H PRN IV if BP > 170 Last administered on 21:50; Admin Dose 10 MG; Start 09/30/16 at 13:30 Ceftriaxone Sodium (Rocephin) 50 ml @ 100 mls/hr Q24H IVPB Last administered on 10/03/16 08:15; Admin Dose 100 MLS/HR; Start 10/02/16 at 09:00 Quetiapine Fumarate 100 mg 100 mg QHS PO Last administered on 10/02/16 20:06; Admin Dose 100 MG; Start 10/01/16 at 21:00 Sodium Chloride (1/2 NS) 1,000 ml @ 70 mls/hr [id number] IV Last administered on 10/03/16 03:10; Admin Dose 70 MLS/HR; Start 10/02/16 at 12:30 Amlodipine Besylate (Norvasc) 10 mg DAILY PO Last administered on 10/03/16 08: 14; Admin Dose 10 MG; Start 10/03/16 at 09:00 NI WATSON MD Oct 03, 2016 09:40
--- NOTE | 2016-10-03 11:46 | PN ---
Date/Time of Note Date/Time of Note DATE: 10/03/16 TIME: 11:44 Assessment/Plan VTE Prophylaxis VTE Prophylaxis Intervention: heparin Lines/Catheters IV C[facility]ter Type [facility]from [facility] Peripheral IV Urinary Cath still in place: Yes Assessment/Plan Assessment/Plan - Urinary tract infection with urine culture positive for Klebsiella pneumoniae and another gram-negative afsaneh organism. Continue patient on Rocephin. - Acute on chronic encephalopathy secondary to urinary tract infection on admission, resolved. The patient underwent a brain CT on admission which did not show any evidence of acute intracranial hemorrhage, infarct or acute intracranial pathology. - Status post ventricular peritoneal shunt per CT scan without any hydrocephalus. No acute issues. - Gout. Continue patient on allopurinol and colchicine and Uloric. - Chronic Potter catheter. Continue to monitor urine output. - COLLIN on Chronic kidney disease. Dr. Ramsey is following in nephrology consultation. - Hypertension. Continue Lopressor and Norvasc - Hyperlipidemia. Continue Lipitor. Continue heparin for deep venous thrombosis prophylaxis and Protonix for peptic ulcer disease prophylaxis. Further recommendations based on clinical course. Plan of care discussed with Dr. Cartagena. Subjective 24 Hr Interval Summary Respiratory: no complaints Cardiovascular: no complaints Gastrointestinal: no complaints Genitourinary: no complaints Musculoskeletal: no complaints Skin: no complaints Exam/Review of Systems Vital Signs Vitals Vital Signs Date Time Temp Pulse Resp B/P Pulse Ox O2 Delivery O2 Flow Rate FiO2 10/03/16 09:01 82 151/81 10/03/16 07:47 98.0 14 99 10/02/16 19:50 Room Air Intake and Output 10/02/16 10/02/16 10/03/16 15:00 23:00 07:00 Intake Total 650 ml 2320 ml 1080 ml Output Total 2500 ml 1100 ml Balance 650 ml -180 ml -20 ml Exam Constitutional: alert, oriented, well developed Psych: no complaints Head: atraumatic Eyes: EOMI, nl sclera ENMT: nl external ears & nose Neck: non-tender Respiratory: clear to auscultation Cardiovascular: nl pulses Gastrointestinal: non-tender, soft Musculoskeletal: nl extremities to inspection Extremities: normal pulses Neurological: nl speech Skin: nl turgor Lymph: nontender Results Result Diagram: 10/02/16 0510 10/02/16 0510 Results 24 hrs Laboratory Tests Test 10/02/16 17:20 10/02/16 20:57 10/03/16 08:00 Bedside Glucose 137 133 93 Medications Medications Current Medications Ondansetron HCl (Zofran Inj) 4 mg Q6H PRN IV NAUSEA AND/OR VOMITING Last administered on 09/30/16 12:48; Admin Dose 4 MG; Start 09/28/16 at 09:00 Oxycodone/ Acetaminophen (Percocet (5/ 325)) 1 tab Q6H PRN PO PAIN Last administered on 09/29/16 11:51; Admin Dose 1 TAB; Start 09/28/16 at 12:00 Acetaminophen (Tylenol Tab) 500 mg Q6H PRN PO PAIN AND OR ELEVATED TEMP; Start 09/28/16 at 11:30 Allopurinol (Zyloprim) 100 mg DAILY PO Last administered on 10/03/16 08:13; Admin Dose 100 MG; Start 09/29/16 at 09:00 Amlodipine Besylate (Norvasc) 5 mg DAILY PO Last administered on 10/03/16 08: 15; Admin Dose 5 MG; Start 09/29/16 at 09:00 Eye Lubricant (Artificial Tears Oph) 2 drop QID BOTH EYES Last administered on 10/03/16 08:56; Admin Dose 2 DROP; Start 09/28/16 at 13:00 Atorvastatin Calcium (Lipitor) 10 mg QHS PO Last administered on 10/02/16 20: 05; Admin Dose 10 MG; Start 09/28/16 at 21:00 Febuxostat (Uloric) 40 mg DAILY PO Last administered on 10/03/16 08:13; Admin Dose 40 MG; Start 09/29/16 at 09:00 Lactobacillus Acidoph/Bulgaricus (Floranex) 1 tab TID PO Last administered on 08:13; Admin Dose 1 TAB; Start 09/28/16 at 13:00 Metoprolol Tartrate (Lopressor) 100 mg BID PO Last administered on 10/03/16 08 :56; Admin Dose 100 MG; Start 09/28/16 at 21:00 Nystatin (Nystatin Susp) 5 ml TID PO Last administered on 10/03/16 08:58; Admin Dose 5 ML; Start 09/28/16 at 13:00 Pantoprazole (Protonix Tab) 40 mg DAILY@06 PO Last administered on 10/03/16 06 :09; Admin Dose 40 MG; Start 09/29/16 at 06:00 Psyllium Hydrophilic Mucilloid (Metamucil) 1 pkt DAILY PO Last administered on 10/03/16 08:14; Admin Dose 1 PKT; Start 09/29/16 at 09:00 Tamsulosin HCl (Flomax) 0.4 mg DAILY PO Last administered on 10/03/16 08:56; Admin Dose 0.4 MG; Start 09/29/16 at 09:00 Miscellaneous Information 1 ea NOTE XX ; Start 09/28/16 at 12:00 Glucose (Glutose) 15 gm Q15M PRN PO DECREASED GLUCOSE; Start 09/28/16 at 12:00 Glucose (Glutose) 22.5 gm Q15M PRN PO DECREASED GLUCOSE; Start 09/28/16 at 12: 00 Dextrose (D50w Syringe) 25 ml Q15M PRN IV DECREASED GLUCOSE; Start 09/28/16 at 12:00 Dextrose (D50w Syringe) 50 ml Q15M PRN IV DECREASED GLUCOSE; Start 09/28/16 at 12:00 Glucagon (Glucagen) 1 mg Q15M PRN IM DECREASED GLUCOSE; Start 09/28/16 at 12:00 Glucose (Glutose) 15 gm Q15M PRN BUCCAL DECREASED GLUCOSE; Start 09/28/16 at 12 :00 Colchicine (Colchicine) 0.6 mg DAILY PO Last administered on 10/03/16 08:13; Admin Dose 0.6 MG; Start 09/29/16 at 09:00 Ascorbic Acid (Vitamin C) 500 mg DAILY PO Last administered on 10/03/16 08:13 ; Admin Dose 500 MG; Start 09/28/16 at 12:13 Clonidine (Catapres) 0.1 mg Q12H PRN PO SBP ABOVE 160 Last administered on 09/30 12:56; Admin Dose 0.1 MG; Start 09/28/16 at 12:14 Colchicine (Colchicine) 0.6 mg DAILY PRN PO gout; Start 09/28/16 at 12:14 Ferrous Sulfate (Ferrous Sulfate (Ec)) 325 mg DAILY PO Last administered on 08:13; Admin Dose 325 MG; Start 09/29/16 at 09:00 Hydralazine HCl (Apresoline) 25 mg Q8H PRN PO SPB ABOVE 160 Last administered on 09/30/16 08:22; Admin Dose 25 MG; Start 09/28/16 at 12:16 Acetaminophen/ Hydrocodone Bitart ([place] (10/325)) 1 tab Q4H PRN PO PAIN Last administered on 10/03/16 08:13; Admin Dose 1 TAB; Start 09/28/16 at 12:16 Lactulose (Enulose) 20 gm Q8 PRN PO CONSTIPATION; Start 09/28/16 at 12:17 Heparin Sodium (Porcine) (Heparin (5000 Units/0.5 ml)) 5,000 unit Q12 SC Last administered on 10/03/16 08:24; Admin Dose 5,000 UNIT; Start 09/29/16 at 09:00 Hydromorphone HCl (Dilaudid) 0.5 mg Q4H PRN IV PAIN Last administered on 16:45; Admin Dose 0.5 MG; Start 09/29/16 at 11:30 Hydralazine HCl 10 mg 10 mg Q6H PRN IV if BP > 170 Last administered on 21:50; Admin Dose 10 MG; Start 09/30/16 at 13:30 Ceftriaxone Sodium (Rocephin) 50 ml @ 100 mls/hr Q24H IVPB Last administered on 10/03/16 08:15; Admin Dose 100 MLS/HR; Start 10/02/16 at 09:00 Quetiapine Fumarate 100 mg 100 mg QHS PO Last administered on 10/02/16 20:06; Admin Dose 100 MG; Start 10/01/16 at 21:00 Sodium Chloride (1/2 NS) 1,000 ml @ 70 mls/hr [id number] IV Last administered on 10/03/16 03:10; Admin Dose 70 MLS/HR; Start 10/02/16 at 12:30 Amlodipine Besylate (Norvasc) 10 mg DAILY PO Last administered on 10/03/16 08: 14; Admin Dose 10 MG; Start 10/03/16 at 09:00 PANDA SKAGGS Oct 03, 2016 11:45
--- NOTE | 2016-10-03 12:46 | PN ---
DATE: 10/03/2016 SUBJECTIVE: No acute events. The patient is alert, feels good, looks comfortable, no fevers. ANTIMICROBIALS: Rocephin. PHYSICAL EXAMINATION: GENERAL: Well-developed elderly man who is lying comfortably in bed. HEENT: Head atraumatic, normocephalic. Sclerae anicteric. Buccal mucosa pink. NECK: Supple, trachea midline. CHEST: Rise symmetrical. Breath sounds clear. HEART: S1, S2. ABDOMEN: Soft, bowel tones present. EXTREMITIES: No cyanosis. ASSESSMENT: 1. Polymicrobial urinary tract infection, remains on antibiotics. 2. Acute on chronic kidney disease. 3. Benign prostatic hypertrophy. 4. Diabetes. 5. Hypertension. PLAN: The patient remains stable. Continue present care, antibiotics. Follow nephrology recommend ations. Dictated By: ANGI ZEPEDA NURSERY NURSE for DANIEL HAYES/NTS Conf#: [id number] DID#: [id number]
--- NOTE | 2016-10-03 16:03 | CONS ---
DATE OF ADMISSION: 09/28/2016 DATE OF CONSULTATION: 10/01/2016 TYPE FOR CONSULTATION: Infectious disease REASON FOR CONSULTATION: Antibiotic management. HISTORY OF PRESENT ILLNESS: George Field is a 66-year-old male who comes to the emerg ency room on the with weakness and headaches. He has generalized weakness and dizziness descri bed as vertigo, as well as lightheadedness. He was seen in the emergency room. His problems includ e: 1. History of occipital craniotomy. 2. Ventriculostomy. 3. G-tube placement. 4. Left knee surgery. 5. Depression. 6. Dementia. 7. Pneumonia. 8. Hypertension. 9. Dyslipidemia. 10. CVA. 11. Dementia as noted post-ventriculostomy. ALLERGIES: HE IS ALSO ALLERGIC TO CODEINE, MORPHINE. FAMILY HISTORY: Noncontributory. SOCIAL HISTORY: He is a former smoker. He does not drink or abuse drugs. MEDICATIONS: Per chart. REVIEW OF SYSTEMS: As per HPI. LABORATORY DATA: On admission, his white count 8.5, H and H of 13.2 and 38.8, platelet count 234,00 0. BUN and creatinine 48/2.7. GENERAL: On admission, he is an elderly appearing male who is demented in no acute distress. VITAL SIGNS: Stable. He is afebrile. SKIN: Without generalized rash. HEENT: Within normal limits. NECK: Supple. LYMPH NODES: None palpable. CHEST: Decreased breath sounds at the bases. HEART: Without murmur or gallop. ABDOMEN: Soft, nontender without organosplenomegaly or masses. EXTREMITIES: Without cyanosis, clubbing, or edema. RECTAL AND GENITAL: Deferred. NEUROLOGIC: He has chronic residual deficits from ischemic hemorrhage. HOSPITAL COURSE: Microbiology shows his urine culture is growing out Klebsiella pneumonia which is sensitive to cefotaxime and Providencia stuartii. The patient's chest x-ray shows no acute disease. He was started on ceftriaxone which is appropriate for this patient. He will continue on the ceft riaxone for his UTI. His renal ultrasound shows some bilateral cortical thinning, no evidence of hy dronephrosis. We will continue him on ceftriaxone. I will dictate my findings to Dr. Cartagena and nurse practitioner, Kendrick. Dictated By: DANIEL CORTEZ MD, JD/NTS Conf#: [id number] DID#: [id number]
[2016-10-03 20:10] VITALS: BP 164/92; RESP 16
[2016-10-03] MEDS: QUETIAPINE 100 MG TAB PO SCH (21:38)
[2016-10-03] MEDS: ATORVASTATIN 10 MG TAB PO SCH (21:38)
[2016-10-04] MEDS: PANTOPRAZOLE (EC) 40 MG TAB PO SCH (05:47)
[2016-10-04] MEDS: SOD CHLORIDE 0.45% 1,000 ML IV SCH ×2 (07:32→22:51)
[2016-10-04] MEDS: INSULIN ASPART [NOVOLOG] 3 ML PEN SC SCH ×4 (08:00→20:57)
[2016-10-04] MEDS: HEPARIN 5,000 UNIT/0.5 ML SYG SC SCH ×2 (08:26→20:56)
[2016-10-04] MEDS: AMLODIPINE 5 MG TAB PO SCH (08:29)
[2016-10-04] MEDS: AMLODIPINE 10 MG TAB PO SCH (08:30)
[2016-10-04] MEDS: PSYLLIUM 28% PACKET PO SCH (08:32)
[2016-10-04] MEDS: FERROUS SULFATE (EC) 325 MG TAB PO SCH (08:32)
[2016-10-04] MEDS: CEFTRIAXONE 1 GM/NS 50 ML IVPB SCH (08:39)
[2016-10-04] MEDS: NYSTATIN SUSP 5 ML CUP PO SCH ×3 (08:39→20:46)
[2016-10-04] MEDS: LACTOBACILLUS CHEW TAB PO SCH ×3 (08:39→20:46)
[2016-10-04] MEDS: ASCORBIC ACID 500 MG TAB PO SCH (08:39)
[2016-10-04 08:40] VITALS: BP 143/85; RESP 18
[2016-10-04] MEDS: METOPROLOL 100 MG TAB PO SCH ×2 (08:40→20:48)
[2016-10-04] MEDS: ALLOPURINOL 100 MG TAB PO SCH (08:40)
[2016-10-04] MEDS: TAMSULOSIN (SR) 0.4 MG CAP PO SCH (08:40)
[2016-10-04] MEDS: ARTIFICIAL TEARS 15 ML OPH BOTH EYES SCH ×4 (08:42→20:46)
[2016-10-04] MEDS: COLCHICINE 0.6 MG TAB PO SCH (08:49)
[2016-10-04] MEDS: FEBUXOSTAT 40 MG TABLET PO SCH (08:50)
--- NOTE | 2016-10-04 11:01 | CONS ---
Date/Time of Note Date/Time of Note DATE: 10/04/16 TIME: 10:57 Assessment/Plan Assessment/Plan Additional Assessment/Plan 1. Acute kidney injury on chronic kidney disease stage III/IV, likely secondary to a prerenal azotemia and secondary to urinary tract infections. 2. Acute urinary tract infection with urine culture growing Providencia and Klebsiella pneumoniae. 3. History of chronic kidney disease stage III to IV secondary to a diabetic and hypertensive nephropathy. 4. Acute hypernatremia, likely secondary to a free water deficit. 5. History of hypertension. 6. History of diabetes mellitus. 7. History of benign prostatic hypertrophy. 8. History of gout. 9. Accelerated hypertension, very poorly controlled while being in the hospital. 10. 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 11. History of previous cerebrovascular accident with a G-tube in place for nutritional purposes. PLAN: BP now better controlled with Amlodipine Cr stable, Na still high on labs yesterday, no labs today to review,will order BMP stat, AM labs has been ordered for tomorrow continue free water 250 cc Q 4 hr Continue current care and IV abx as per ID will follow up Consultation Date/Type/Reason Admit Date/Time Sep 28, 2016 at 01:37 Initial Consult Date Sep Type of Consultation: NEPHROLOGY Reason for Consultation acute kidney injury on CKD Referring Provider: VANESSA LOPES MD 24 HR Interval Summary Free Text/Dictation no labs today to review, Bp stable, Cr 2.19 Exam/Review of Systems Vital Signs Vitals Vital Signs Date Time Temp Pulse Resp B/P Pulse Ox O2 Delivery O2 Flow Rate FiO2 10/04/16 08:40 98.0 54 18 143/85 95 10/02/16 19:50 Room Air Intake and Output 10/03/16 10/03/16 10/04/16 15:00 23:00 07:00 Intake Total 50 ml 1340 ml 1240 ml Output Total 300 ml 840 ml Balance 50 ml 1040 ml 400 ml Exam GENERAL: Awake, alert, in no distress. HEENT: Normal. Oropharynx clear. NECK: Supple, no JVD, no lymphadenopathy. LUNGS: Decreased breath sounds on the right middle lobe and right lower lobe. No wheezing. HEART: S1, S2, with regular rhythm. ABDOMEN: Soft. G-tube in place, site is clear. No erythema. EXTREMITIES: No clubbing, cyanosis, or edema. NEUROLOGICAL: Nonfocal, intact. PSYCHIATRIC: Appropriate affect and mood. Results Result Diagram: 10/02/16 0510 10/02/16 0510 Results 24 hrs Laboratory Tests Test 10/03/16 11:51 10/03/16 17:09 10/03/16 21:37 10/04/16 08:07 Bedside Glucose 135 101 108 89 Medications Medications Current Medications Ondansetron HCl (Zofran Inj) 4 mg Q6H PRN IV NAUSEA AND/OR VOMITING Last administered on 09/30/16 12:48; Admin Dose 4 MG; Start 09/28/16 at 09:00 Oxycodone/ Acetaminophen (Percocet (5/ 325)) 1 tab Q6H PRN PO PAIN Last administered on 09/29/16 11:51; Admin Dose 1 TAB; Start 09/28/16 at 12:00 Acetaminophen (Tylenol Tab) 500 mg Q6H PRN PO PAIN AND OR ELEVATED TEMP; Start 09/28/16 at 11:30 Allopurinol (Zyloprim) 100 mg DAILY PO Last administered on 10/04/16 08:40; Admin Dose 100 MG; Start 09/29/16 at 09:00 Amlodipine Besylate (Norvasc) 5 mg DAILY PO Last administered on 10/04/16 08: 29; Admin Dose 5 MG; Start 09/29/16 at 09:00 Eye Lubricant (Artificial Tears Oph) 2 drop QID BOTH EYES Last administered on 10/04/16 08:42; Admin Dose 2 DROP; Start 09/28/16 at 13:00 Atorvastatin Calcium (Lipitor) 10 mg QHS PO Last administered on 10/03/16 21: 38; Admin Dose 10 MG; Start 09/28/16 at 21:00 Febuxostat (Uloric) 40 mg DAILY PO Last administered on 10/04/16 08:50; Admin Dose 40 MG; Start 09/29/16 at 09:00 Lactobacillus Acidoph/Bulgaricus (Floranex) 1 tab TID PO Last administered on 08:39; Admin Dose 1 TAB; Start 09/28/16 at 13:00 Metoprolol Tartrate (Lopressor) 100 mg BID PO Last administered on 10/04/16 08 :40; Admin Dose 100 MG; Start 09/28/16 at 21:00 Nystatin (Nystatin Susp) 5 ml TID PO Last administered on 10/04/16 08:39; Admin Dose 5 ML; Start 09/28/16 at 13:00 Pantoprazole (Protonix Tab) 40 mg DAILY@06 PO Last administered on 10/04/16 05 :47; Admin Dose 40 MG; Start 09/29/16 at 06:00 Psyllium Hydrophilic Mucilloid (Metamucil) 1 pkt DAILY PO Last administered on 10/04/16 08:32; Admin Dose 1 PKT; Start 09/29/16 at 09:00 Tamsulosin HCl (Flomax) 0.4 mg DAILY PO Last administered on 10/04/16 08:40; Admin Dose 0.4 MG; Start 09/29/16 at 09:00 Miscellaneous Information 1 ea NOTE XX ; Start 09/28/16 at 12:00 Glucose (Glutose) 15 gm Q15M PRN PO DECREASED GLUCOSE; Start 09/28/16 at 12:00 Glucose (Glutose) 22.5 gm Q15M PRN PO DECREASED GLUCOSE; Start 09/28/16 at 12: 00 Dextrose (D50w Syringe) 25 ml Q15M PRN IV DECREASED GLUCOSE; Start 09/28/16 at 12:00 Dextrose (D50w Syringe) 50 ml Q15M PRN IV DECREASED GLUCOSE; Start 09/28/16 at 12:00 Glucagon (Glucagen) 1 mg Q15M PRN IM DECREASED GLUCOSE; Start 09/28/16 at 12:00 Glucose (Glutose) 15 gm Q15M PRN BUCCAL DECREASED GLUCOSE; Start 09/28/16 at 12 :00 Colchicine (Colchicine) 0.6 mg DAILY PO Last administered on 10/04/16 08:49; Admin Dose 0.6 MG; Start 09/29/16 at 09:00 Ascorbic Acid (Vitamin C) 500 mg DAILY PO Last administered on 10/04/16 08:39 ; Admin Dose 500 MG; Start 09/28/16 at 12:13 Clonidine (Catapres) 0.1 mg Q12H PRN PO SBP ABOVE 160 Last administered on 09/30 12:56; Admin Dose 0.1 MG; Start 09/28/16 at 12:14 Colchicine (Colchicine) 0.6 mg DAILY PRN PO gout; Start 09/28/16 at 12:14 Ferrous Sulfate (Ferrous Sulfate (Ec)) 325 mg DAILY PO Last administered on 08:32; Admin Dose 325 MG; Start 09/29/16 at 09:00 Hydralazine HCl (Apresoline) 25 mg Q8H PRN PO SPB ABOVE 160 Last administered on 09/30/16 08:22; Admin Dose 25 MG; Start 09/28/16 at 12:16 Acetaminophen/ Hydrocodone Bitart ([place] ()) 1 tab Q4H PRN PO PAIN Last administered on 10/03/16 08:13; Admin Dose 1 TAB; Start 09/28/16 at 12:16 Lactulose (Enulose) 20 gm Q8 PRN PO CONSTIPATION; Start 09/28/16 at 12:17 Heparin Sodium (Porcine) (Heparin (5000 Units/0.5 ml)) 5,000 unit Q12 SC Last administered on 10/04/16 08:26; Admin Dose 5,000 UNIT; Start 09/29/16 at 09:00 Hydromorphone HCl (Dilaudid) 0.5 mg Q4H PRN IV PAIN Last administered on 16:45; Admin Dose 0.5 MG; Start 09/29/16 at 11:30 Hydralazine HCl 10 mg 10 mg Q6H PRN IV if BP > 170 Last administered on 21:50; Admin Dose 10 MG; Start 09/30/16 at 13:30 Ceftriaxone Sodium (Rocephin) 50 ml @ 100 mls/hr Q24H IVPB Last administered on 10/04/16 08:39; Admin Dose 100 MLS/HR; Start 10/02/16 at 09:00 Quetiapine Fumarate 100 mg 100 mg QHS PO Last administered on 10/03/16 21:38; Admin Dose 100 MG; Start 10/01/16 at 21:00 Sodium Chloride (1/2 NS) 1,000 ml @ 70 mls/hr [id number] IV Last administered on 10/04/16 07:32; Admin Dose 70 MLS/HR; Start 10/02/16 at 12:30 Amlodipine Besylate (Norvasc) 10 mg DAILY PO Last administered on 10/04/16t 08: 30; Admin Dose 10 MG; Start 10/03/16 at 09:00 NI WATSON MD Oct 04, 2016 11:01
[2016-10-04] MEDS: HYDROCODONE/APAP (10/325) TAB PO PRN (12:19)
--- NOTE | 2016-10-04 12:44 | CONS ---
Date/Time of Note Date/Time of Note DATE: 10/04/16 TIME: 12:43 Assessment/Plan Assessment/Plan Chief Complaint/Hosp Course SUBJECTIVE: No acute events. The patient is alert, feels good, looks comfortable, no fevers. ANTIMICROBIALS: Rocephin==> day 7 abx. PHYSICAL EXAMINATION: GENERAL: Well-developed elderly man who is lying comfortably in bed. HEENT: Head atraumatic, normocephalic. Sclerae anicteric. Buccal mucosa pink. NECK: Supple, trachea midline. CHEST: Rise symmetrical. Breath sounds clear. HEART: S1, S2. ABDOMEN: Soft, bowel tones present. EXTREMITIES: No cyanosis. ASSESSMENT: 1. Polymicrobial urinary tract infection. 2. Acute on chronic kidney disease. 3. Benign prostatic hypertrophy. 4. Diabetes. 5. Hypertension. PLAN: The patient remains stable. Continue present care, complete antibiotics for couple more days. Follow nephrology recommendations. ?[facility] staff Problems: Consultation Date/Type/Reason Admit Date/Time Sep 28, 2016 at 01:37 Initial Consult Date Type of Consultation: ID Referring Provider: VANESSA LOPES MD Exam/Review of Systems Vital Signs Vitals Vital Signs Date Time Temp Pulse Resp B/P Pulse Ox O2 Delivery O2 Flow Rate FiO2 10/04/16 08:40 98.0 54 18 143/85 95 10/02/16 19:50 Room Air Intake and Output 10/03/16 10/03/16 10/04/16 15:00 23:00 07:00 Intake Total 50 ml 1340 ml 1240 ml Output Total 300 ml 840 ml Balance 50 ml 1040 ml 400 ml Results Result Diagram: 10/02/16 0510 10/02/16 0510 Results 24 hrs Laboratory Tests Test 10/03/16 17:09 10/03/16 21:37 10/04/16 08:07 10/04/16 12:01 Bedside Glucose 101 108 89 145 Medications Medications Current Medications Ondansetron HCl (Zofran Inj) 4 mg Q6H PRN IV NAUSEA AND/OR VOMITING Last administered on 09/30/16 12:48; Admin Dose 4 MG; Start 09/28/16 at 09:00 Oxycodone/ Acetaminophen (Percocet (5/ 325)) 1 tab Q6H PRN PO PAIN Last administered on 09/29/16 11:51; Admin Dose 1 TAB; Start 09/28/16 at 12:00 Acetaminophen (Tylenol Tab) 500 mg Q6H PRN PO PAIN AND OR ELEVATED TEMP; Start 09/28/16 at 11:30 Allopurinol (Zyloprim) 100 mg DAILY PO Last administered on 10/04/16 08:40; Admin Dose 100 MG; Start 09/29/16 at 09:00 Amlodipine Besylate (Norvasc) 5 mg DAILY PO Last administered on 10/04/16 08: 29; Admin Dose 5 MG; Start 09/29/16 at 09:00 Eye Lubricant (Artificial Tears Oph) 2 drop QID BOTH EYES Last administered on 10/04/16 12:18; Admin Dose 2 DROP; Start 09/28/16 at 13:00 Atorvastatin Calcium (Lipitor) 10 mg QHS PO Last administered on 10/03/16 21: 38; Admin Dose 10 MG; Start 09/28/16 at 21:00 Febuxostat (Uloric) 40 mg DAILY PO Last administered on 10/04/16 08:50; Admin Dose 40 MG; Start 09/29/16 at 09:00 Lactobacillus Acidoph/Bulgaricus (Floranex) 1 tab TID PO Last administered on 12:19; Admin Dose 1 TAB; Start 09/28/16 at 13:00 Metoprolol Tartrate (Lopressor) 100 mg BID PO Last administered on 10/04/16 08 :40; Admin Dose 100 MG; Start 09/28/16 at 21:00 Nystatin (Nystatin Susp) 5 ml TID PO Last administered on 10/04/16 12:19; Admin Dose 5 ML; Start 09/28/16 at 13:00 Pantoprazole (Protonix Tab) 40 mg DAILY@06 PO Last administered on 10/04/16 05 :47; Admin Dose 40 MG; Start 09/29/16 at 06:00 Psyllium Hydrophilic Mucilloid (Metamucil) 1 pkt DAILY PO Last administered on 10/04/16 08:32; Admin Dose 1 PKT; Start 09/29/16 at 09:00 Tamsulosin HCl (Flomax) 0.4 mg DAILY PO Last administered on 10/04/16 08:40; Admin Dose 0.4 MG; Start 09/29/16 at 09:00 Miscellaneous Information 1 ea NOTE XX ; Start 09/28/16 at 12:00 Glucose (Glutose) 15 gm Q15M PRN PO DECREASED GLUCOSE; Start 09/28/16 at 12:00 Glucose (Glutose) 22.5 gm Q15M PRN PO DECREASED GLUCOSE; Start 09/28/16 at 12: 00 Dextrose (D50w Syringe) 25 ml Q15M PRN IV DECREASED GLUCOSE; Start 09/28/16 at 12:00 Dextrose (D50w Syringe) 50 ml Q15M PRN IV DECREASED GLUCOSE; Start 09/28/16 at 12:00 Glucagon (Glucagen) 1 mg Q15M PRN IM DECREASED GLUCOSE; Start 09/28/16 at 12:00 Glucose (Glutose) 15 gm Q15M PRN BUCCAL DECREASED GLUCOSE; Start 09/28/16 at 12 :00 Colchicine (Colchicine) 0.6 mg DAILY PO Last administered on 10/04/16 08:49; Admin Dose 0.6 MG; Start 09/29/16 at 09:00 Ascorbic Acid (Vitamin C) 500 mg DAILY PO Last administered on 10/04/16 08:39 ; Admin Dose 500 MG; Start 09/28/16 at 12:13 Clonidine (Catapres) 0.1 mg Q12H PRN PO SBP ABOVE 160 Last administered on 09/30 12:56; Admin Dose 0.1 MG; Start 09/28/16 at 12:14 Colchicine (Colchicine) 0.6 mg DAILY PRN PO gout; Start 09/28/16 at 12:14 Ferrous Sulfate (Ferrous Sulfate (Ec)) 325 mg DAILY PO Last administered on 08:32; Admin Dose 325 MG; Start 09/29/16 at 09:00 Hydralazine HCl (Apresoline) 25 mg Q8H PRN PO SPB ABOVE 160 Last administered on 09/30/16 08:22; Admin Dose 25 MG; Start 09/28/16 at 12:16 Acetaminophen/ Hydrocodone Bitart ([place] (10/325)) 1 tab Q4H PRN PO PAIN Last administered on 10/04/16 12:19; Admin Dose 1 TAB; Start 09/28/16 at 12:16 Lactulose (Enulose) 20 gm Q8 PRN PO CONSTIPATION; Start 09/28/16 at 12:17 Heparin Sodium (Porcine) (Heparin (5000 Units/0.5 ml)) 5,000 unit Q12 SC Last administered on 10/04/16 08:26; Admin Dose 5,000 UNIT; Start 09/29/16 at 09:00 Hydromorphone HCl (Dilaudid) 0.5 mg Q4H PRN IV PAIN Last administered on 16:45; Admin Dose 0.5 MG; Start 09/29/16 at 11:30 Hydralazine HCl 10 mg 10 mg Q6H PRN IV if BP > 170 Last administered on 21:50; Admin Dose 10 MG; Start 09/30/16 at 13:30 Ceftriaxone Sodium (Rocephin) 50 ml @ 100 mls/hr Q24H IVPB Last administered on 10/04/16 08:39; Admin Dose 100 MLS/HR; Start 10/02/16 at 09:00 Quetiapine Fumarate 100 mg 100 mg QHS PO Last administered on 10/03/16 21:38; Admin Dose 100 MG; Start 10/01/16 at 21:00 Sodium Chloride (1/2 NS) 1,000 ml @ 70 mls/hr [id number] IV Last administered on 10/04/16 07:32; Admin Dose 70 MLS/HR; Start 10/02/16 at 12:30 Amlodipine Besylate (Norvasc) 10 mg DAILY PO Last administered on 10/04/16 08: 30; Admin Dose 10 MG; Start 10/03/16 at 09:00 ANGI ZEPEDA NP Oct 04, 2016 12:44
[2016-10-04 14:42] LABS: POTASSIUM 3.9 mmol/L (3.5-5.1)
[2016-10-04 14:45] LABS: CREATININE 2.3 mg/dl (0.61-1.24)
[2016-10-04 14:46] LABS: CALCIUM 9.4 mg/dl (8.4-10.2)
--- NOTE | 2016-10-04 15:52 | PN ---
Date/Time of Note Date/Time of Note DATE: 10/04/16 TIME: 15:49 Assessment/Plan VTE Prophylaxis VTE Prophylaxis Intervention: SCD's Lines/Catheters IV [facility]ter Type (from [facility] Peripheral IV Central line still needed: Yes Urinary Cath still in place: Yes Reason Cath still needed: urinary retention Assessment/Plan Chief Complaint/Hosp Course ASSESSMENT AND PLAN: - Urinary tract infection with urine culture positive for Klebsiella pneumoniae and another gram-negative afsaneh organism. Continue patient on Rocephin. - Acute on chronic encephalopathy secondary to urinary tract infection on admission, resolved. The patient underwent a brain CT on admission which did not show any evidence of acute intracranial hemorrhage, infarct or acute intracranial pathology. - Status post ventricular peritoneal shunt per CT scan without any hydrocephalus. No acute issues. - Gout. Continue patient on allopurinol and colchicine and Uloric. - Chronic Potter catheter. Continue to monitor urine output. - COLLIN on Chronic kidney disease. Dr. Ramsey is following in nephrology consultation. - Hypertension. Continue Lopressor and Norvasc - Hyperlipidemia. Continue Lipitor. - Hypernatremia, resolving. Continue heparin for deep venous thrombosis prophylaxis and Protonix for peptic ulcer disease prophylaxis. Further recommendations based on clinical course. Plan of care discussed with Dr. Cartagena. Problems: Subjective 24 Hr Interval Summary Free Text/Dictation No acute events overnight, pain is well controlled, patient denies any nausea vomiting. Exam/Review of Systems Vital Signs Vitals Vital Signs Date Time Temp Pulse Resp B/P Pulse Ox O2 Delivery O2 Flow Rate FiO2 10/04/16 08:40 98.0 54 18 143/85 95 10/02/16 19:50 Room Air Intake and Output 10/03/16 10/03/16 10/04/16 15:00 23:00 07:00 Intake Total 50 ml 1340 ml 1240 ml Output Total 300 ml 840 ml Balance 50 ml 1040 ml 400 ml Exam HEENT: Head is normocephalic, atraumatic. Pupils equal, round, reactive to light and accommodation. Oral mucosa is pink and moist. NECK: Supple. No cervical lymphadenopathy, no thyromegaly. CHEST: Lungs clear bilaterally. CARDIOVASCULAR: Normal S1, S2. No murmurs. ABDOMEN: Round, soft, nondistended, bowel sounds present. Patient has a G- tube with intact stoma. EXTREMITIES: The patient had no edema. The patient has left knee tenderness and mild swelling. GENITOURINARY: The patient has a Potter catheter. SKIN: No rash, petechiae noted. NEUROLOGIC: The patient is awake, alert and oriented to name and situation. Results Result Diagram: 10/02/16 0510 10/04/16 1400 Results 24 hrs Laboratory Tests Test 10/03/16 17:09 10/03/16 21:37 10/04/16 08:07 10/04/16 12:01 Bedside Glucose 101 108 89 145 Test 10/04/16 14:00 Anion Gap 18 H Blood Urea Nitrogen 27 H Calcium Level 9.4 Carbon Dioxide Level 23 Chloride Level 108 Creatinine 2.30 H Glucose Level 130 Potassium Level 3.9 Sodium Level 145 H Medications Medications Current Medications Ondansetron HCl (Zofran Inj) 4 mg Q6H PRN IV NAUSEA AND/OR VOMITING Last administered on 09/30/16 12:48; Admin Dose 4 MG; Start 09/28/16 at 09:00 Oxycodone/ Acetaminophen (Percocet (5/ 325)) 1 tab Q6H PRN PO PAIN Last administered on 09/29/16 11:51; Admin Dose 1 TAB; Start 09/28/16 at 12:00 Acetaminophen (Tylenol Tab) 500 mg Q6H PRN PO PAIN AND OR ELEVATED TEMP; Start 09/28/16 at 11:30 Allopurinol (Zyloprim) 100 mg DAILY PO Last administered on 10/04/16 08:40; Admin Dose 100 MG; Start 09/29/16 at 09:00 Amlodipine Besylate (Norvasc) 5 mg DAILY PO Last administered on 10/04/16 08: 29; Admin Dose 5 MG; Start 09/29/16 at 09:00 Eye Lubricant (Artificial Tears Oph) 2 drop QID BOTH EYES Last administered on 10/04/16 12:18; Admin Dose 2 DROP; Start 09/28/16 at 13:00 Atorvastatin Calcium (Lipitor) 10 mg QHS PO Last administered on 10/03/16 21: 38; Admin Dose 10 MG; Start 09/28/16 at 21:00 Febuxostat (Uloric) 40 mg DAILY PO Last administered on 10/04/16 08:50; Admin Dose 40 MG; Start 09/29/16 at 09:00 Lactobacillus Acidoph/Bulgaricus (Floranex) 1 tab TID PO Last administered on 12:19; Admin Dose 1 TAB; Start 09/28/16 at 13:00 Metoprolol Tartrate (Lopressor) 100 mg BID PO Last administered on 10/04/16 08 :40; Admin Dose 100 MG; Start 09/28/16 at 21:00 Nystatin (Nystatin Susp) 5 ml TID PO Last administered on 10/04/16 12:19; Admin Dose 5 ML; Start 09/28/16 at 13:00 Pantoprazole (Protonix Tab) 40 mg DAILY@06 PO Last administered on 10/04/16 05 :47; Admin Dose 40 MG; Start 09/29/16 at 06:00 Psyllium Hydrophilic Mucilloid (Metamucil) 1 pkt DAILY PO Last administered on 10/04/16 08:32; Admin Dose 1 PKT; Start 09/29/16 at 09:00 Tamsulosin HCl (Flomax) 0.4 mg DAILY PO Last administered on 10/04/16 08:40; Admin Dose 0.4 MG; Start 09/29/16 at 09:00 Miscellaneous Information 1 ea NOTE XX ; Start 09/28/16 at 12:00 Glucose (Glutose) 15 gm Q15M PRN PO DECREASED GLUCOSE; Start 09/28/16 at 12:00 Glucose (Glutose) 22.5 gm Q15M PRN PO DECREASED GLUCOSE; Start 09/28/16 at 12: 00 Dextrose (D50w Syringe) 25 ml Q15M PRN IV DECREASED GLUCOSE; Start 09/28/16 at 12:00 Dextrose (D50w Syringe) 50 ml Q15M PRN IV DECREASED GLUCOSE; Start 09/28/16 at 12:00 Glucagon (Glucagen) 1 mg Q15M PRN IM DECREASED GLUCOSE; Start 09/28/16 at 12:00 Glucose (Glutose) 15 gm Q15M PRN BUCCAL DECREASED GLUCOSE; Start 09/28/16 at 12 :00 Colchicine (Colchicine) 0.6 mg DAILY PO Last administered on 10/04/16 08:49; Admin Dose 0.6 MG; Start 09/29/16 at 09:00 Ascorbic Acid (Vitamin C) 500 mg DAILY PO Last administered on 10/04/16 08:39 ; Admin Dose 500 MG; Start 09/28/16 at 12:13 Clonidine (Catapres) 0.1 mg Q12H PRN PO SBP ABOVE 160 Last administered on 09/30 12:56; Admin Dose 0.1 MG; Start 09/28/16 at 12:14 Colchicine (Colchicine) 0.6 mg DAILY PRN PO gout; Start 09/28/16 at 12:14 Ferrous Sulfate (Ferrous Sulfate (Ec)) 325 mg DAILY PO Last administered on 08:32; Admin Dose 325 MG; Start 09/29/16 at 09:00 Hydralazine HCl (Apresoline) 25 mg Q8H PRN PO SPB ABOVE 160 Last administered on 09/30/16 08:22; Admin Dose 25 MG; Start 09/28/16 at 12:16 Acetaminophen/ Hydrocodone Bitart ([place] ()) 1 tab Q4H PRN PO PAIN Last administered on 10/04/16 12:19; Admin Dose 1 TAB; Start 09/28/16 at 12:16 Lactulose (Enulose) 20 gm Q8 PRN PO CONSTIPATION; Start 09/28/16 at 12:17 Heparin Sodium (Porcine) (Heparin (5000 Units/0.5 ml)) 5,000 unit Q12 SC Last administered on 10/04/16 08:26; Admin Dose 5,000 UNIT; Start 09/29/16 at 09:00 Hydromorphone HCl (Dilaudid) 0.5 mg Q4H PRN IV PAIN Last administered on 16:45; Admin Dose 0.5 MG; Start 09/29/16 at 11:30 Hydralazine HCl 10 mg 10 mg Q6H PRN IV if BP > 170 Last administered on 21:50; Admin Dose 10 MG; Start 09/30/16 at 13:30 Ceftriaxone Sodium (Rocephin) 50 ml @ 100 mls/hr Q24H IVPB Last administered on 10/04/16 08:39; Admin Dose 100 MLS/HR; Start 10/02/16 at 09:00 Quetiapine Fumarate 100 mg 100 mg QHS PO Last administered on 10/03/16 21:38; Admin Dose 100 MG; Start 10/01/16 at 21:00 Sodium Chloride (1/2 NS) 1,000 ml @ 70 mls/hr [id number] IV Last administered on 10/04/16 07:32; Admin Dose 70 MLS/HR; Start 10/02/16 at 12:30 Amlodipine Besylate (Norvasc) 10 mg DAILY PO Last administered on 10/04/16 08: 30; Admin Dose 10 MG; Start 10/03/16 at 09:00 MARIA ANTONIA GERMAN Oct 04, 2016 15:52
[2016-10-04 19:52] VITALS: BP 169/93; RESP 16
[2016-10-04] MEDS: QUETIAPINE 100 MG TAB PO SCH (20:46)
[2016-10-04] MEDS: ATORVASTATIN 10 MG TAB PO SCH (20:47)
[2016-10-05] MEDS: PANTOPRAZOLE (EC) 40 MG TAB PO SCH (05:48)
[2016-10-05 06:17] LABS: ADD SCAN DIFF NO
[2016-10-05 06:24] LABS: BASOPHIL # 0.1 10^3/ul (0.0-0.1); BASOPHILS % 1.2 % (0.0-2.0); EOSINOPHILS # 0.2 10^3/ul (0.0-0.5); EOSINOPHILS % 3.2 % (0.0-7.0); HEMATOCRIT 34.4 % (42.0-52.0); HEMOGLOBIN 11.5 g/dl (14.0-18.0); LYMPHOCYTES # 3.2 10^3/ul (0.8-2.9); LYMPHOCYTES % 53.6 % (15.0-51.0); MEAN CORPUSCULAR HGB CONC 33.4 g/dl (32.0-37.0); MEAN CORPUSCULAR VOLUME 86.9 fl (82.0-101.0); MEAN PLATELET VOLUME 9.4 fl (7.4-10.4); MONOCYTE # 0.5 10^3/ul (0.3-0.9); MONOCYTES % 7.8 % (0.0-11.0); NEUTROPHILS % 33.5 % (39.0-77.0); PLATELET COUNT 322 10^3/UL (140-415); RED BLOOD COUNT 3.96 10^6/ul (4.70-6.10); RED CELL DISTRIBUTION WIDTH 13.9 % (11.5-14.5); WHITE BLOOD COUNT 5.9 10^3/ul (4.8-10.8)
[2016-10-05 06:38] LABS: INR 0.96; PROTIME 12.8 Sec (12.2-14.2)
[2016-10-05 06:39] LABS: PARTIAL THROMBOPLASTIN TIME 31.9 Sec (25.0-35.0)
[2016-10-05 07:01] LABS: CREATININE 2.29 mg/dl (0.61-1.24)
[2016-10-05 07:02] LABS: CALCIUM 9.1 mg/dl (8.4-10.2)
[2016-10-05 07:45] VITALS: BP 128/72; RESP 18
[2016-10-05] MEDS: INSULIN ASPART [NOVOLOG] 3 ML PEN SC SCH ×4 (08:00→21:00)
[2016-10-05] MEDS: PSYLLIUM 28% PACKET PO SCH (08:25)
[2016-10-05] MEDS: LACTOBACILLUS CHEW TAB PO SCH ×3 (08:25→21:44)
[2016-10-05] MEDS: AMLODIPINE 10 MG TAB PO SCH (08:26)
[2016-10-05] MEDS: AMLODIPINE 5 MG TAB PO SCH (08:26)
[2016-10-05] MEDS: ARTIFICIAL TEARS 15 ML OPH BOTH EYES SCH ×4 (08:27→21:44)
[2016-10-05] MEDS: FERROUS SULFATE (EC) 325 MG TAB PO SCH (08:27)
[2016-10-05] MEDS: COLCHICINE 0.6 MG TAB PO SCH (08:27)
[2016-10-05] MEDS: ASCORBIC ACID 500 MG TAB PO SCH (08:27)
[2016-10-05] MEDS: ALLOPURINOL 100 MG TAB PO SCH (08:27)
[2016-10-05] MEDS: FEBUXOSTAT 40 MG TABLET PO SCH (08:27)
[2016-10-05] MEDS: TAMSULOSIN (SR) 0.4 MG CAP PO SCH (08:27)
[2016-10-05] MEDS: CEFTRIAXONE 1 GM/NS 50 ML IVPB SCH (08:28)
[2016-10-05] MEDS: NYSTATIN SUSP 5 ML CUP PO SCH ×3 (08:28→21:45)
[2016-10-05] MEDS: METOPROLOL 100 MG TAB PO SCH ×2 (08:28→21:46)
[2016-10-05] MEDS: HEPARIN 5,000 UNIT/0.5 ML SYG SC SCH ×2 (08:32→21:54)
[2016-10-05] MEDS: SOD CHLORIDE 0.45% 1,000 ML IV SCH (12:33)
--- NOTE | 2016-10-05 12:38 | PN ---
Date/Time of Note Date/Time of Note DATE: 10/05/16 TIME: 12:36 Assessment/Plan VTE Prophylaxis VTE Prophylaxis Intervention: LMWH, SCD's Lines/Catheters [facility] Peripheral IV Urinary Cath still in place: Yes Assessment/Plan Assessment/Plan - Urinary tract infection with urine culture positive for Klebsiella pneumoniae and another gram-negative afsaneh organism. Continue patient on Rocephin. - Acute on chronic encephalopathy secondary to urinary tract infection on admission, resolved. The patient underwent a brain CT on admission which did not show any evidence of acute intracranial hemorrhage, infarct or acute intracranial pathology. - Status post ventricular peritoneal shunt per CT scan without any hydrocephalus. No acute issues. - Gout. Continue patient on allopurinol and colchicine and Uloric. - Chronic Potter catheter. Continue to monitor urine output. - COLLIN on Chronic kidney disease. Dr. Ramsey is following in nephrology consultation. - Hypertension. Continue Lopressor and Norvasc - Hyperlipidemia. Continue Lipitor. - Hypernatremia, resolving. Continue heparin for deep venous thrombosis prophylaxis and Protonix for peptic ulcer disease prophylaxis. Further recommendations based on clinical course. Plan of care discussed with Dr. Cartagena. Exam/Review of Systems Vital Signs Vitals Vital Signs Date Time Temp Pulse Resp B/P Pulse Ox O2 Delivery O2 Flow Rate FiO2 10/05/16 07:45 97.5 54 18 128/72 97 10/02/16 19:50 Room Air Intake and Output 10/04/16 10/04/16 10/05/16 15:00 23:00 07:00 Intake Total 760 ml 1850 ml 820 ml Output Total 1700 ml 1400 ml Balance 760 ml 150 ml -580 ml Exam Constitutional: alert, well developed Psych: nl mood/affect Head: atraumatic Eyes: EOMI, PERRL, nl sclera ENMT: nl external ears & nose Respiratory: clear to auscultation Cardiovascular: nl pulses Gastrointestinal: non-tender, soft Genitourinary - Male: other (FC- urine clear,yellow) Skin: nl turgor Lymph: nontender Results Result Diagram: 10/05/1631 10/05/16530 Results 24 hrs Laboratory Tests Test 10/04/16 14:00 10/04/16 17:04 10/04/16 20:49 10/05/16 05:31 Anion Gap 18 H 18 H Blood Urea Nitrogen 27 H 30 H Calcium Level 9.4 9.1 Carbon Dioxide Level 23 21 Chloride Level 108 109 Creatinine 2.30 H 2.29 H Glucose Level 130 89 # Potassium Level 3.9 4.0 Sodium Level 145 H 144 Bedside Glucose 129 117 Activated Partial Thromboplast Time 31.9 Basophils # 0.1 Basophils % 1.2 Eosinophils # 0.2 Eosinophils % 3.2 Hematocrit 34.4 L Hemoglobin 11.5 L INR International Normalized Ratio 0.96 Lymphocytes # 3.2 H Lymphocytes % 53.6 H Mean Corpuscular Hemoglobin 29.0 Mean Corpuscular Hemoglobin Concent 33.4 Mean Corpuscular Volume 86.9 Mean Platelet Volume 9.4 Monocytes # 0.5 Monocytes % 7.8 Neutrophils # 2.0 Neutrophils % 33.5 L Nucleated Red Blood Cells # 0.0 Nucleated Red Blood Cells % 0.0 Platelet Count 322 Prothrombin Time 12.8 Prothrombin Time Ratio 1.0 Red Blood Count 3.96 L Red Cell Distribution Width 13.9 White Blood Count 5.9 Test 10/05/16 08:24 10/05/16 12:25 Bedside Glucose 92 155 Medications Medications Current Medications Ondansetron HCl (Zofran Inj) 4 mg Q6H PRN IV NAUSEA AND/OR VOMITING Last administered on 09/30/16 12:48; Admin Dose 4 MG; Start 09/28/16 at 09:00 Oxycodone/ Acetaminophen (Percocet (5/ 325)) 1 tab Q6H PRN PO PAIN Last administered on 09/29/16 11:51; Admin Dose 1 TAB; Start 09/28/16 at 12:00 Acetaminophen (Tylenol Tab) 500 mg Q6H PRN PO PAIN AND OR ELEVATED TEMP; Start 09/28/16 at 11:30 Allopurinol (Zyloprim) 100 mg DAILY PO Last administered on 10/05/16 08:27; Admin Dose 100 MG; Start 09/29/16 at 09:00 Amlodipine Besylate (Norvasc) 5 mg DAILY PO Last administered on 10/05/16 08: 26; Admin Dose 5 MG; Start 09/29/16 at 09:00 Eye Lubricant (Artificial Tears Oph) 2 drop QID BOTH EYES Last administered on 10/05/16 12:23; Admin Dose 2 DROP; Start 09/28/16 at 13:00 Atorvastatin Calcium (Lipitor) 10 mg QHS PO Last administered on 10/04/16 20: 47; Admin Dose 10 MG; Start 09/28/16 at 21:00 Febuxostat (Uloric) 40 mg DAILY PO Last administered on 10/05/16 08:27; Admin Dose 40 MG; Start 09/29/16 at 09:00 Lactobacillus Acidoph/Bulgaricus (Floranex) 1 tab TID PO Last administered on 12:23; Admin Dose 1 TAB; Start 09/28/16 at 13:00 Metoprolol Tartrate (Lopressor) 100 mg BID PO Last administered on 10/04/16 20 :48; Admin Dose 100 MG; Start 09/28/16 at 21:00 Nystatin (Nystatin Susp) 5 ml TID PO Last administered on 10/05/16 12:23; Admin Dose 5 ML; Start 09/28/16 at 13:00 Pantoprazole (Protonix Tab) 40 mg DAILY@06 PO Last administered on 10/05/16 05 :48; Admin Dose 40 MG; Start 09/29/16 at 06:00 Psyllium Hydrophilic Mucilloid (Metamucil) 1 pkt DAILY PO Last administered on 10/05/16 08:25; Admin Dose 1 PKT; Start 09/29/16 at 09:00 Tamsulosin HCl (Flomax) 0.4 mg DAILY PO Last administered on 10/05/16 08:27; Admin Dose 0.4 MG; Start 09/29/16 at 09:00 Miscellaneous Information 1 ea NOTE XX ; Start 09/28/16 at 12:00 Glucose (Glutose) 15 gm Q15M PRN PO DECREASED GLUCOSE; Start 09/28/16 at 12:00 Glucose (Glutose) 22.5 gm Q15M PRN PO DECREASED GLUCOSE; Start 09/28/16 at 12: 00 Dextrose (D50w Syringe) 25 ml Q15M PRN IV DECREASED GLUCOSE; Start 09/28/16 at 12:00 Dextrose (D50w Syringe) 50 ml Q15M PRN IV DECREASED GLUCOSE; Start 09/28/16 at 12:00 Glucagon (Glucagen) 1 mg Q15M PRN IM DECREASED GLUCOSE; Start 09/28/16 at 12:00 Glucose (Glutose) 15 gm Q15M PRN BUCCAL DECREASED GLUCOSE; Start 09/28/16 at 12 :00 Colchicine (Colchicine) 0.6 mg DAILY PO Last administered on 10/05/16 08:27; Admin Dose 0.6 MG; Start 09/29/16 at 09:00 Ascorbic Acid (Vitamin C) 500 mg DAILY PO Last administered on 10/05/16 08:27 ; Admin Dose 500 MG; Start 09/28/16 at 12:13 Clonidine (Catapres) 0.1 mg Q12H PRN PO SBP ABOVE 160 Last administered on 09/30 12:56; Admin Dose 0.1 MG; Start 09/28/16 at 12:14 Colchicine (Colchicine) 0.6 mg DAILY PRN PO gout; Start 09/28/16 at 12:14 Ferrous Sulfate (Ferrous Sulfate (Ec)) 325 mg DAILY PO Last administered on 08:27; Admin Dose 325 MG; Start 09/29/16 at 09:00 Hydralazine HCl (Apresoline) 25 mg Q8H PRN PO SPB ABOVE 160 Last administered on 09/30/16 08:22; Admin Dose 25 MG; Start 09/28/16 at 12:16 Acetaminophen/ Hydrocodone Bitart ([place] (10/325)) 1 tab Q4H PRN PO PAIN Last administered on 10/04/16 12:19; Admin Dose 1 TAB; Start 09/28/16 at 12:16 Lactulose (Enulose) 20 gm Q8 PRN PO CONSTIPATION; Start 09/28/16 at 12:17 Heparin Sodium (Porcine) (Heparin (5000 Units/0.5 ml)) 5,000 unit Q12 SC Last administered on 10/05/16 08:32; Admin Dose 5,000 UNIT; Start 09/29/16 at 09:00 Hydromorphone HCl (Dilaudid) 0.5 mg Q4H PRN IV PAIN Last administered on 16:45; Admin Dose 0.5 MG; Start 09/29/16 at 11:30 Hydralazine HCl 10 mg 10 mg Q6H PRN IV if BP > 170 Last administered on 21:50; Admin Dose 10 MG; Start 09/30/16 at 13:30 Ceftriaxone Sodium (Rocephin) 50 ml @ 100 mls/hr Q24H IVPB Last administered on 10/05/16 08:28; Admin Dose 100 MLS/HR; Start 10/02/16 at 09:00 Quetiapine Fumarate 100 mg 100 mg QHS PO Last administered on 10/04/16 20:46; Admin Dose 100 MG; Start 10/01/16 at 21:00 Sodium Chloride (1/2 NS) 1,000 ml @ 70 mls/hr [id number] IV Last administered on 10/05/16 12:33; Admin Dose 70 MLS/HR; Start 10/02/16 at 12:30 Amlodipine Besylate (Norvasc) 10 mg DAILY PO Last administered on 10/05/16 08: 26; Admin Dose 10 MG; Start 10/03/16 at 09:00 PANDA SKAGGS Oct 05, 2016 12:38
--- NOTE | 2016-10-05 12:42 | CONS ---
Date/Time of Note Date/Time of Note DATE: 10/05/16 TIME: 12:40 Assessment/Plan Assessment/Plan Additional Assessment/Plan 1. Acute kidney injury on chronic kidney disease stage III/IV, likely secondary to a prerenal azotemia and secondary to urinary tract infections. 2. Acute urinary tract infection with urine culture growing Providencia and Klebsiella pneumoniae. 3. History of chronic kidney disease stage III to IV secondary to a diabetic and hypertensive nephropathy. 4. Acute hypernatremia, likely secondary to a free water deficit. 5. History of hypertension. 6. History of diabetes mellitus. 7. History of benign prostatic hypertrophy. 8. History of gout. 9. Accelerated hypertension, very poorly controlled while being in the hospital. 10. History of a previous craniotomy and had a [employer] shunt in place. 11. History of previous cerebrovascular accident with a G-tube in place for nutritional purposes. PLAN: BP now better controlled with Amlodipine Cr 2.29, Na normal today d/c free water Continue current care and IV abx as per ID will follow up ARU consult requested Consultation Date/Type/Reason Admit Date/Time Sep 28, 2016 at 01:37 Initial Consult Date Sep Type of Consultation: NEPHROLOGY Reason for Consultation Acute kidney injury, Hypernatremia Referring Provider: VANESSA LOPES MD 24 HR Interval Summary Free Text/Dictation pt stable, ARU Consult requested Exam/Review of Systems Vital Signs Vitals Vital Signs Date Time Temp Pulse Resp B/P Pulse Ox O2 Delivery O2 Flow Rate FiO2 10/05/16 07:45 97.5 54 18 128/72 97 10/02/16 19:50 Room Air Intake and Output 10/04/16 10/04/16 10/05/16 15:00 23:00 07:00 Intake Total 760 ml 1850 ml 820 ml Output Total 1700 ml 1400 ml Balance 760 ml 150 ml -580 ml Exam NECK: Supple, no JVD, no lymphadenopathy. LUNGS: Decreased breath sounds on the right middle lobe and right lower lobe. No wheezing. HEART: S1, S2, with regular rhythm. ABDOMEN: Soft. G-tube in place, site is clear. No erythema. EXTREMITIES: No clubbing, cyanosis, or edema. Results Result Diagram: 10/05/16 0531 10/05/16 0531 Results 24 hrs Laboratory Tests Test 10/04/16 14:00 10/04/16 17:04 10/04/16 20:49 10/05/16 05:31 Anion Gap 18 H 18 H Blood Urea Nitrogen 27 H 30 H Calcium Level 9.4 9.1 Carbon Dioxide Level 23 21 Chloride Level 108 109 Creatinine 2.30 H 2.29 H Glucose Level 130 89 # Potassium Level 3.9 4.0 Sodium Level 145 H 144 Bedside Glucose 129 117 Activated Partial Thromboplast Time 31.9 Basophils # 0.1 Basophils % 1.2 Eosinophils # 0.2 Eosinophils % 3.2 Hematocrit 34.4 L Hemoglobin 11.5 L INR International Normalized Ratio 0.96 Lymphocytes # 3.2 H Lymphocytes % 53.6 H Mean Corpuscular Hemoglobin 29.0 Mean Corpuscular Hemoglobin Concent 33.4 Mean Corpuscular Volume 86.9 Mean Platelet Volume 9.4 Monocytes # 0.5 Monocytes % 7.8 Neutrophils # 2.0 Neutrophils % 33.5 L Nucleated Red Blood Cells # 0.0 Nucleated Red Blood Cells % 0.0 Platelet Count 322 Prothrombin Time 12.8 Prothrombin Time Ratio 1.0 Red Blood Count 3.96 L Red Cell Distribution Width 13.9 White Blood Count 5.9 Test 10/05/16 08:24 10/05/16 12:25 Bedside Glucose 92 155 Medications Medications Current Medications Ondansetron HCl (Zofran Inj) 4 mg Q6H PRN IV NAUSEA AND/OR VOMITING Last administered on 09/30/16 12:48; Admin Dose 4 MG; Start 09/28/16 at 09:00 Oxycodone/ Acetaminophen (Percocet (5/ 325)) 1 tab Q6H PRN PO PAIN Last administered on 09/29/16 11:51; Admin Dose 1 TAB; Start 09/28/16 at 12:00 Acetaminophen (Tylenol Tab) 500 mg Q6H PRN PO PAIN AND OR ELEVATED TEMP; Start 09/28/16 at 11:30 Allopurinol (Zyloprim) 100 mg DAILY PO Last administered on 10/05/16 08:27; Admin Dose 100 MG; Start 09/29/16 at 09:00 Amlodipine Besylate (Norvasc) 5 mg DAILY PO Last administered on 10/05/16 08: 26; Admin Dose 5 MG; Start 09/29/16 at 09:00 Eye Lubricant (Artificial Tears Oph) 2 drop QID BOTH EYES Last administered on 10/05/16 12:23; Admin Dose 2 DROP; Start 09/28/16 at 13:00 Atorvastatin Calcium (Lipitor) 10 mg QHS PO Last administered on 10/04/16 20: 47; Admin Dose 10 MG; Start 09/28/16 at 21:00 Febuxostat (Uloric) 40 mg DAILY PO Last administered on 10/05/16 08:27; Admin Dose 40 MG; Start 09/29/16 at 09:00 Lactobacillus Acidoph/Bulgaricus (Floranex) 1 tab TID PO Last administered on 12:23; Admin Dose 1 TAB; Start 09/28/16 at 13:00 Metoprolol Tartrate (Lopressor) 100 mg BID PO Last administered on 10/04/16 20 :48; Admin Dose 100 MG; Start 09/28/16 at 21:00 Nystatin (Nystatin Susp) 5 ml TID PO Last administered on 10/05/16 12:23; Admin Dose 5 ML; Start 09/28/16 at 13:00 Pantoprazole (Protonix Tab) 40 mg DAILY@06 PO Last administered on 10/05/16 05 :48; Admin Dose 40 MG; Start 09/29/16 at 06:00 Psyllium Hydrophilic Mucilloid (Metamucil) 1 pkt DAILY PO Last administered on 10/05/16 08:25; Admin Dose 1 PKT; Start 09/29/16 at 09:00 Tamsulosin HCl (Flomax) 0.4 mg DAILY PO Last administered on 10/05/16 08:27; Admin Dose 0.4 MG; Start 09/29/16 at 09:00 Miscellaneous Information 1 ea NOTE XX ; Start 09/28/16 at 12:00 Glucose (Glutose) 15 gm Q15M PRN PO DECREASED GLUCOSE; Start 09/28/16 at 12:00 Glucose (Glutose) 22.5 gm Q15M PRN PO DECREASED GLUCOSE; Start 09/28/16 at 12: 00 Dextrose (D50w Syringe) 25 ml Q15M PRN IV DECREASED GLUCOSE; Start 09/28/16 at 12:00 Dextrose (D50w Syringe) 50 ml Q15M PRN IV DECREASED GLUCOSE; Start 09/28/16 at 12:00 Glucagon (Glucagen) 1 mg Q15M PRN IM DECREASED GLUCOSE; Start 09/28/16 at 12:00 Glucose (Glutose) 15 gm Q15M PRN BUCCAL DECREASED GLUCOSE; Start 09/28/16 at 12 :00 Colchicine (Colchicine) 0.6 mg DAILY PO Last administered on 10/05/16 08:27; Admin Dose 0.6 MG; Start 09/29/16 at 09:00 Ascorbic Acid (Vitamin C) 500 mg DAILY PO Last administered on 10/05/16 08:27 ; Admin Dose 500 MG; Start 09/28/16 at 12:13 Clonidine (Catapres) 0.1 mg Q12H PRN PO SBP ABOVE 160 Last administered on 09/30 12:56; Admin Dose 0.1 MG; Start 09/28/16 at 12:14 Colchicine (Colchicine) 0.6 mg DAILY PRN PO gout; Start 09/28/16 at 12:14 Ferrous Sulfate (Ferrous Sulfate (Ec)) 325 mg DAILY PO Last administered on 08:27; Admin Dose 325 MG; Start 09/29/16 at 09:00 Hydralazine HCl (Apresoline) 25 mg Q8H PRN PO SPB ABOVE 160 Last administered on 09/30/16 08:22; Admin Dose 25 MG; Start 09/28/16 at 12:16 Acetaminophen/ Hydrocodone Bitart ([place] (10/325)) 1 tab Q4H PRN PO PAIN Last administered on 10/04/16 12:19; Admin Dose 1 TAB; Start 09/28/16 at 12:16 Lactulose (Enulose) 20 gm Q8 PRN PO CONSTIPATION; Start 09/28/16 at 12:17 Heparin Sodium (Porcine) (Heparin (5000 Units/0.5 ml)) 5,000 unit Q12 SC Last administered on 10/05/16 08:32; Admin Dose 5,000 UNIT; Start 09/29/16 at 09:00 Hydromorphone HCl (Dilaudid) 0.5 mg Q4H PRN IV PAIN Last administered on 16:45; Admin Dose 0.5 MG; Start 09/29/16 at 11:30 Hydralazine HCl 10 mg 10 mg Q6H PRN IV if BP > 170 Last administered on 21:50; Admin Dose 10 MG; Start 09/30/16 at 13:30 Ceftriaxone Sodium (Rocephin) 50 ml @ 100 mls/hr Q24H IVPB Last administered on 10/05/16 08:28; Admin Dose 100 MLS/HR; Start 10/02/16 at 09:00 Quetiapine Fumarate 100 mg 100 mg QHS PO Last administered on 10/04/16 20:46; Admin Dose 100 MG; Start 10/01/16 at 21:00 Sodium Chloride (1/2 NS) 1,000 ml @ 70 mls/hr [id number] IV Last administered on 10/05/16 12:33; Admin Dose 70 MLS/HR; Start 10/02/16 at 12:30 Amlodipine Besylate (Norvasc) 10 mg DAILY PO Last administered on 10/05/16 08: 26; Admin Dose 10 MG; Start 10/03/16 at 09:00 NI WATSON MD Oct 05, 2016 12:42
--- NOTE | 2016-10-05 14:24 | CONS ---
Date/Time of Note Date/Time of Note DATE: 10/05/16 TIME: 14:24 Assessment/Plan Assessment/Plan Chief Complaint/Hosp Course ID PROGRESS NOTE CURRENT ABX=> Ceftriaxone #8 24H INTERVAL SUMMARY * Napping -awakens easily w/Primary Lao language, family in room speak Togolese, Pt without complaints and feels better * Afebrile, VSS, NAD PHYSICAL EXAMINATION: GENERAL: VSS, NAD HEENT: Unremarkable -- NECK: Supple, trachea midline. CHEST: Rise symmetrical, without dyspnea on observation HEART: Pulse RRR ABDOMEN: Soft, benign EXTREMITIES: Warm ID ASSESSMENT 66 yo M w/PMHx CVA/craniotomy decompression, neurogenic bladder admit with: 1. Polymicrobial urinary tract infection. URINE CULTURE Final Organism 1 K.PNEUMONIAE SSP PNEUMONIAE COLONY COUNT >100,000 CFU/ml Organism 2 PROVIDENCIA STUARTII COLONY COUNT >100,000 CFU/ml 2. Acute on chronic kidney disease. 3. Benign prostatic hypertrophy. 4. Diabetes. 5. Hypertension. INVASIVES: PIV, ABX ALLERGY: KNDA CURRENT ABX: => Ceftriaxone #8 s/p ID RECOMMENDATIONS 1. Continue current ABX x 10 days 2. May DC on current ABX . Problems: Consultation Date/Type/Reason Admit Date/Time Sep 28, 2016 at 01:37 Initial Consult Date Type of Consultation: ID Referring Provider: VANESSA LOPES MD Exam/Review of Systems Vital Signs Vitals Vital Signs Date Time Temp Pulse Resp B/P Pulse Ox O2 Delivery O2 Flow Rate FiO2 10/05/16 07:45 97.5 54 18 128/72 97 10/02/16 19:50 Room Air Intake and Output 10/04/16 10/04/16 10/05/16 15:00 23:00 07:00 Intake Total 760 ml 1850 ml 820 ml Output Total 1700 ml 1400 ml Balance 760 ml 150 ml -580 ml Results Result Diagram: 10/05/16 0531 10/05/16 0531 Results 24 hrs Laboratory Tests Test 10/04/16 17:04 10/04/16 20:49 10/05/16 05:31 10/05/16 08:24 Bedside Glucose 129 117 92 Activated Partial Thromboplast Time 31.9 Anion Gap 18 H Basophils # 0.1 Basophils % 1.2 Blood Urea Nitrogen 30 H Calcium Level 9.1 Carbon Dioxide Level 21 Chloride Level 109 Creatinine 2.29 H Eosinophils # 0.2 Eosinophils % 3.2 Glucose Level 89 # Hematocrit 34.4 L Hemoglobin 11.5 L INR International Normalized Ratio 0.96 Lymphocytes # 3.2 H Lymphocytes % 53.6 H Mean Corpuscular Hemoglobin 29.0 Mean Corpuscular Hemoglobin Concent 33.4 Mean Corpuscular Volume 86.9 Mean Platelet Volume 9.4 Monocytes # 0.5 Monocytes % 7.8 Neutrophils # 2.0 Neutrophils % 33.5 L Nucleated Red Blood Cells # 0.0 Nucleated Red Blood Cells % 0.0 Platelet Count 322 Potassium Level 4.0 Prothrombin Time 12.8 Prothrombin Time Ratio 1.0 Red Blood Count 3.96 L Red Cell Distribution Width 13.9 Sodium Level 144 White Blood Count 5.9 Test 10/05/16 12:25 Bedside Glucose 155 Medications Medications Current Medications Ondansetron HCl (Zofran Inj) 4 mg Q6H PRN IV NAUSEA AND/OR VOMITING Last administered on 09/30/16 12:48; Admin Dose 4 MG; Start 09/28/16 at 09:00 Oxycodone/ Acetaminophen (Percocet (5/ 325)) 1 tab Q6H PRN PO PAIN Last administered on 09/29/16 11:51; Admin Dose 1 TAB; Start 09/28/16 at 12:00 Acetaminophen (Tylenol Tab) 500 mg Q6H PRN PO PAIN AND OR ELEVATED TEMP; Start 09/28/16 at 11:30 Allopurinol (Zyloprim) 100 mg DAILY PO Last administered on 10/05/16 08:27; Admin Dose 100 MG; Start 09/29/16 at 09:00 Amlodipine Besylate (Norvasc) 5 mg DAILY PO Last administered on 10/05/16 08: 26; Admin Dose 5 MG; Start 09/29/16 at 09:00 Eye Lubricant (Artificial Tears Oph) 2 drop QID BOTH EYES Last administered on 10/05/16 12:23; Admin Dose 2 DROP; Start 09/28/16 at 13:00 Atorvastatin Calcium (Lipitor) 10 mg QHS PO Last administered on 10/04/16 20: 47; Admin Dose 10 MG; Start 09/28/16 at 21:00 Febuxostat (Uloric) 40 mg DAILY PO Last administered on 10/05/16 08:27; Admin Dose 40 MG; Start 09/29/16 at 09:00 Lactobacillus Acidoph/Bulgaricus (Floranex) 1 tab TID PO Last administered on 12:23; Admin Dose 1 TAB; Start 09/28/16 at 13:00 Metoprolol Tartrate (Lopressor) 100 mg BID PO Last administered on 10/04/16 20 :48; Admin Dose 100 MG; Start 09/28/16 at 21:00 Nystatin (Nystatin Susp) 5 ml TID PO Last administered on 10/05/16 12:23; Admin Dose 5 ML; Start 09/28/16 at 13:00 Pantoprazole (Protonix Tab) 40 mg DAILY@06 PO Last administered on 10/05/16 05 :48; Admin Dose 40 MG; Start 09/29/16 at 06:00 Psyllium Hydrophilic Mucilloid (Metamucil) 1 pkt DAILY PO Last administered on 10/05/16 08:25; Admin Dose 1 PKT; Start 09/29/16 at 09:00 Tamsulosin HCl (Flomax) 0.4 mg DAILY PO Last administered on 10/05/16 08:27; Admin Dose 0.4 MG; Start 09/29/16 at 09:00 Miscellaneous Information 1 ea NOTE XX ; Start 09/28/16 at 12:00 Glucose (Glutose) 15 gm Q15M PRN PO DECREASED GLUCOSE; Start 09/28/16 at 12:00 Glucose (Glutose) 22.5 gm Q15M PRN PO DECREASED GLUCOSE; Start 09/28/16 at 12: 00 Dextrose (D50w Syringe) 25 ml Q15M PRN IV DECREASED GLUCOSE; Start 09/28/16 at 12:00 Dextrose (D50w Syringe) 50 ml Q15M PRN IV DECREASED GLUCOSE; Start 09/28/16 at 12:00 Glucagon (Glucagen) 1 mg Q15M PRN IM DECREASED GLUCOSE; Start 09/28/16 at 12:00 Glucose (Glutose) 15 gm Q15M PRN BUCCAL DECREASED GLUCOSE; Start 09/28/16 at 12 :00 Colchicine (Colchicine) 0.6 mg DAILY PO Last administered on 10/05/16 08:27; Admin Dose 0.6 MG; Start 09/29/16 at 09:00 Ascorbic Acid (Vitamin C) 500 mg DAILY PO Last administered on 10/05/16 08:27 ; Admin Dose 500 MG; Start 09/28/16 at 12:13 Clonidine (Catapres) 0.1 mg Q12H PRN PO SBP ABOVE 160 Last administered on 09/30 12:56; Admin Dose 0.1 MG; Start 09/28/16 at 12:14 Colchicine (Colchicine) 0.6 mg DAILY PRN PO gout; Start 09/28/16 at 12:14 Ferrous Sulfate (Ferrous Sulfate (Ec)) 325 mg DAILY PO Last administered on 08:27; Admin Dose 325 MG; Start 09/29/16 at 09:00 Hydralazine HCl (Apresoline) 25 mg Q8H PRN PO SPB ABOVE 160 Last administered on 09/30/16 08:22; Admin Dose 25 MG; Start 09/28/16 at 12:16 Acetaminophen/ Hydrocodone Bitart ([place] (10/325)) 1 tab Q4H PRN PO PAIN Last administered on 10/04/16 12:19; Admin Dose 1 TAB; Start 09/28/16 at 12:16 Lactulose (Enulose) 20 gm Q8 PRN PO CONSTIPATION; Start 09/28/16 at 12:17 Heparin Sodium (Porcine) (Heparin (5000 Units/0.5 ml)) 5,000 unit Q12 SC Last administered on 10/05/16 08:32; Admin Dose 5,000 UNIT; Start 09/29/16 at 09:00 Hydromorphone HCl (Dilaudid) 0.5 mg Q4H PRN IV PAIN Last administered on 16:45; Admin Dose 0.5 MG; Start 09/29/16 at 11:30 Hydralazine HCl 10 mg 10 mg Q6H PRN IV if BP > 170 Last administered on 21:50; Admin Dose 10 MG; Start 09/30/16 at 13:30 Ceftriaxone Sodium (Rocephin) 50 ml @ 100 mls/hr Q24H IVPB Last administered on 10/05/16 08:28; Admin Dose 100 MLS/HR; Start 10/02/16 at 09:00 Quetiapine Fumarate 100 mg 100 mg QHS PO Last administered on 10/04/16 20:46; Admin Dose 100 MG; Start 10/01/16 at 21:00 Sodium Chloride (1/2 NS) 1,000 ml @ 70 mls/hr [id number] IV Last administered on 10/05/16 12:33; Admin Dose 70 MLS/HR; Start 10/02/16 at 12:30 Amlodipine Besylate (Norvasc) 10 mg DAILY PO Last administered on 10/05/16 08: 26; Admin Dose 10 MG; Start 10/03/16 at 09:00 NIKA MANLEY NP Oct 05, 2016 14:24
[2016-10-05 19:50] VITALS: BP 137/96; RESP 18
[2016-10-05] MEDS: QUETIAPINE 100 MG TAB PO SCH (21:45)
[2016-10-05] MEDS: ATORVASTATIN 10 MG TAB PO SCH (21:45)
[2016-10-06] MEDS: SOD CHLORIDE 0.45% 1,000 ML IV SCH ×2 (03:15→16:36)
[2016-10-06] MEDS: PANTOPRAZOLE (EC) 40 MG TAB PO SCH (05:40)
[2016-10-06 06:13] LABS: ADD SCAN DIFF NO
[2016-10-06 06:22] LABS: BASOPHIL # 0.1 10^3/ul (0.0-0.1); BASOPHILS % 1.3 % (0.0-2.0); EOSINOPHILS # 0.2 10^3/ul (0.0-0.5); EOSINOPHILS % 2.6 % (0.0-7.0); HEMATOCRIT 33.7 % (42.0-52.0); HEMOGLOBIN 11.5 g/dl (14.0-18.0); LYMPHOCYTES # 3.2 10^3/ul (0.8-2.9); LYMPHOCYTES % 50.9 % (15.0-51.0); MEAN CORPUSCULAR HEMOGLOBIN 29.7 pg (29.0-33.0); MEAN CORPUSCULAR HGB CONC 34.1 g/dl (32.0-37.0); MEAN CORPUSCULAR VOLUME 87.1 fl (82.0-101.0); MEAN PLATELET VOLUME 9.7 fl (7.4-10.4); MONOCYTE # 0.5 10^3/ul (0.3-0.9); MONOCYTES % 8.4 % (0.0-11.0); NEUTROPHIL # 2.3 10^3/ul (1.6-7.5); NEUTROPHILS % 36.3 % (39.0-77.0); PLATELET COUNT 363 10^3/UL (140-415); RED BLOOD COUNT 3.87 10^6/ul (4.70-6.10); RED CELL DISTRIBUTION WIDTH 14.1 % (11.5-14.5); WHITE BLOOD COUNT 6.2 10^3/ul (4.8-10.8)
[2016-10-06 06:31] LABS: POTASSIUM 3.9 mmol/L (3.5-5.1)
[2016-10-06 06:34] LABS: CREATININE 2.3 mg/dl (0.61-1.24)
[2016-10-06 06:35] LABS: CALCIUM 9.3 mg/dl (8.4-10.2)
[2016-10-06 07:57] VITALS: BP 131/80; RESP 18
[2016-10-06] MEDS: INSULIN ASPART [NOVOLOG] 3 ML PEN SC SCH ×3 (08:00→17:36)
[2016-10-06] MEDS: CEFTRIAXONE 1 GM/NS 50 ML IVPB SCH (08:28)
[2016-10-06] MEDS: PSYLLIUM 28% PACKET PO SCH (08:28)
[2016-10-06] MEDS: FEBUXOSTAT 40 MG TABLET PO SCH (08:29)
[2016-10-06] MEDS: LACTOBACILLUS CHEW TAB PO SCH ×2 (08:29→12:13)
[2016-10-06] MEDS: AMLODIPINE 10 MG TAB PO SCH (08:29)
[2016-10-06] MEDS: TAMSULOSIN (SR) 0.4 MG CAP PO SCH (08:29)
[2016-10-06] MEDS: NYSTATIN SUSP 5 ML CUP PO SCH ×2 (08:29→12:13)
[2016-10-06] MEDS: HYDROCODONE/APAP (10/325) TAB PO PRN (08:30)
[2016-10-06] MEDS: ALLOPURINOL 100 MG TAB PO SCH (08:30)
[2016-10-06] MEDS: COLCHICINE 0.6 MG TAB PO SCH (08:30)
[2016-10-06] MEDS: METOPROLOL 100 MG TAB PO SCH (08:30)
[2016-10-06] MEDS: ASCORBIC ACID 500 MG TAB PO SCH (08:30)
[2016-10-06] MEDS: AMLODIPINE 5 MG TAB PO SCH (08:31)
[2016-10-06] MEDS: FERROUS SULFATE (EC) 325 MG TAB PO SCH (08:31)
[2016-10-06] MEDS: ARTIFICIAL TEARS 15 ML OPH BOTH EYES SCH ×3 (08:31→17:35)
[2016-10-06] MEDS: HEPARIN 5,000 UNIT/0.5 ML SYG SC SCH (08:47)
--- NOTE | 2016-10-06 11:30 | PDOCDIS ---
Discharge Instructions CONDITION Patient Condition: Stable HOME CARE INSTRUCTIONS: Diet Instructions: Low Fat /CholesterolSpecial Diet: low chol low fat ACTIVITY: Activity Restrictions: Slowly Increase Activity Rest between Activity Avoid heavy lifting Do not operate Machinery Do not operate Power Tool Avoid Heavy Housework Bathing Restrictions: under supervision PANDA SKAGGS Oct 06, 2016 11:30
--- NOTE | 2016-10-06 11:56 | DS ---
Date/Time of Note Date/Time of Note DATE: 10/06/16 TIME: 11:54 Discharge Summary Admission/Discharge Info Admit Date/Time Sep 28, 2016 at 01:37 Discharge Date/Time Patient Condition: Stable Hx of Present Illness Transfer to Acute Rehab Hospital Course ID PROGRESS NOTE CURRENT ABX=> Ceftriaxone #8 24H INTERVAL SUMMARY * Napping -awakens easily w/Primary Amharic language, family in room speak Chinese, Pt without complaints and feels better * Afebrile, VSS, NAD PHYSICAL EXAMINATION: GENERAL: VSS, NAD HEENT: Unremarkable -- NECK: Supple, trachea midline. CHEST: Rise symmetrical, without dyspnea on observation HEART: Pulse RRR ABDOMEN: Soft, benign EXTREMITIES: Warm ID ASSESSMENT 66 yo M w/PMHx CVA/craniotomy decompression, neurogenic bladder admit with: 1. Polymicrobial urinary tract infection. URINE CULTURE Final Organism 1 K.PNEUMONIAE SSP PNEUMONIAE COLONY COUNT >100,000 CFU/ml Organism 2 PROVIDENCIA STUARTII COLONY COUNT >100,000 CFU/ml 2. Acute on chronic kidney disease. 3. Benign prostatic hypertrophy. 4. Diabetes. 5. Hypertension. INVASIVES: PIV, ABX ALLERGY: KNDA CURRENT ABX: => Ceftriaxone #8 s/p ID RECOMMENDATIONS 1. Continue current ABX x 10 days 2. May DC on current ABX . Home Meds Reported Medications Dextromethorphan Hbr/Quinidine (NUEDEXTA 20-10 MG CAPSULE) 1 Each Capsule, 1 EACH PO QHS, #1 CAP 10/02/16 Ascorbic Acid* (Vitamin C* Liq) 500 Mg/5 Ml Syrup, 500 MG GTB DAILY, ML 01/12/16 Vancomycin Hcl* (Vancomycin Hcl* Liq) 250 Mg/5 Ml-Oral Soln, 250 MG GTB Q6, ML 01/12/16 Tamsulosin Hcl* (Tamsulosin Hcl*) 0.4 Mg Cap.er.24h, 0.4 MG GTB DAILY, CAP 01/12/16 Pantoprazole* (Pantoprazole*) 40 Mg Tablet.dr, 40 MG GTB DAILY, TAB 01/12/16 Nystatin* (Mycostatin*) 5 Ml Susp, 5 ML PO TID, EA 01/12/16 Psyllium* (Metamucil*) 1 Pkt Susp, 1 PKT GTB DAILY, PACKET 01/12/16 Lactulose* (Lactulose*) 20 Gm/30 Ml Solution, 20 GM GTB Q8 Y for CONSTIPATION, ML 01/12/16 Lactobacillus Acidophilus* (Lactinex*) 1 Tab Chew, 1 TAB GTB TID, TAB 01/12/16 Hydrocodone Bit-Acetaminophen* ([place]*) 10-325 Mg Tablet, 1 TAB GTB Q4H Y for PAIN, TAB 01/12/16 Hydralazine Hcl* (Hydralazine Hcl*) 25 Mg Tab, 25 MG GTB TID Y for ELEVATED BLOOD PRESSURE, #60 TAB HOLD IF SBP<110 OR HR<60 01/12/16 Insulin Lispro (Humalog) 100 U/Ml Cartridge, 0 SC SLIDING SCALE ACHS, EA 01/12/16 Heparin Sod (Porcine) (Heparin) 1,000 Unit/Ml Soln, 5000 UNIT IJ Q12 01/12/16 Ferrous Sulfate* (Ferrous Sulfate*) 325 Mg Tabec, 325 MG GTB DAILY, TAB 01/12/16 Epoetin tali* (Epogen* (ESRD)) 10,000 Unit/1 Ml Vial, 64163 UNIT SC TUES, FRI, SAT, VIAL 01/12/16 Ipratropium-Albuterol (Ipratropium-Albuterol) 0.5-3 Mg/3 Ml Ampul.neb, 3 ML INHALATION Q6 Y for WHEEZING AND SOB, #30 VIAL 01/12/16 Clonidine Hcl* (Clonidine Hcl*) 0.1 Mg Tab, 0.1 MG GTB BID Y for ELEVATED BLOOD PRESSURE, TAB HOLD IF SBP<110, HR<60 01/12/16 Atorvastatin Calcium (Atorvastatin Calcium) 10 Mg Tablet, 10 MG GTB QHS, #30 TAB 01/12/16 Artificial Tears* (Artificial Tears* Ophth) 15 ml Opht, 2 DROP BOTH EYES QID, EA 01/12/16 Amlodipine Besylate* (Norvasc*) 5 Mg Tablet, 5 MG GTB DAILY, TAB HOLD FOR SBP LESS THAN 110 OR HR LESS THAN 60 01/12/16 Allopurinol* (Allopurinol*) 100 Mg Tablet, 100 MG GTB DAILY, TAB 01/12/16 Acetaminophen* (Acetaminophen*) 500 MG Extra Strength Tablet, 500 MG GTB Q6 Y for PAIN AND OR ELEVATED TEMP, TAB 01/12/16 Colchicine* (Colcrys*) 0.6 Mg Tablet, 0.6 MG GTB DAILY Y for gout, TAB 05/30/14 Metoprolol Tartrate* (Lopressor*) 100 Mg Tablet, 100 MG GTB BID, TAB HOLD IF SBP<110, HR<60 05/30/14 Febuxostat* (Uloric*) 40 Mg Tablet, 40 MG GTB DAILY 12/29/11 Pending Labs Laboratory Tests Test 10/05/16 12:25 10/05/16 16:48 10/05/16 21:51 10/06/16 05:20 Bedside Glucose 155mg/dL (70-220) 130mg/dL (70-220) 102mg/dL (70-220) Anion Gap 17 (8-16) Basophils # 0.110^3/ul (0.0-0.1) Basophils % 1.3% (0.0-2.0) Blood Urea Nitrogen 31mg/dl (7-20) Calcium Level 9.3mg/dl (8.4-10.2) Carbon Dioxide Level 22mmol/L (21-31) Chloride Level 111mmol/L (97-110) Creatinine 2.30mg/dl (0.61-1.24) Eosinophils # 0.210^3/ul (0.0-0.5) Eosinophils % 2.6% (0.0-7.0) Glucose Level 89mg/dl (70-220) Hematocrit 33.7% (42.0-52.0) Hemoglobin 11.5g/dl (14.0-18.0) Lymphocytes # 3.210^3/ul (0.8-2.9) Lymphocytes % 50.9% (15.0-51.0) Mean Corpuscular Hemoglobin 29.7pg (29.0-33.0) Mean Corpuscular Hemoglobin Concent 34.1g/dl (32.0-37.0) Mean Corpuscular Volume 87.1fl (82.0-101.0) Mean Platelet Volume 9.7fl (7.4-10.4) Monocytes # 0.510^3/ul (0.3-0.9) Monocytes % 8.4% (0.0-11.0) Neutrophils # 2.310^3/ul (1.6-7.5) Neutrophils % 36.3% (39.0-77.0) Nucleated Red Blood Cells # 0.010^3/ul (0.0-0.0) Nucleated Red Blood Cells % 0.0/100WBC (0.0-0.0) Platelet Count 50059^3/UL (140-415) Potassium Level 3.9mmol/L (3.5-5.1) Red Blood Count 3.8710^6/ul (4.70-6.10) Red Cell Distribution Width 14.1% (11.5-14.5) Sodium Level 146mmol/L (135-144) White Blood Count 6.210^3/ul (4.8-10.8) Test 10/06/16 08:25 Bedside Glucose 94mg/dL (70-220) PANDA SKAGGS Oct 06, 2016 11:56
--- NOTE | 2016-10-06 12:18 | CONS ---
Date/Time of Note Date/Time of Note DATE: 10/06/16 TIME: 12:15 Assessment/Plan Assessment/Plan Additional Assessment/Plan 1. Acute kidney injury on chronic kidney disease stage III/IV, likely secondary to a prerenal azotemia and secondary to urinary tract infections. 2. Acute urinary tract infection with urine culture growing Providencia and Klebsiella pneumoniae. 3. History of chronic kidney disease stage III to IV secondary to a diabetic and hypertensive nephropathy. 4. Acute hypernatremia, likely secondary to a free water deficit. 5. History of hypertension. 6. History of diabetes mellitus. 7. History of benign prostatic hypertrophy. 8. History of gout. 9. Accelerated hypertension, very poorly controlled while being in the hospital. 10. 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 11. History of previous cerebrovascular accident with a G-tube in place for nutritional purposes. PLAN: BP now better controlled with Amlodipine Cr 2.3, Na 146 d/c free water Continue current care and IV abx as per ID will follow up ARU consult requested will follow up Consultation Date/Type/Reason Admit Date/Time Sep 28, 2016 at 01:37 Initial Consult Date Sep Type of Consultation: NEPHROLOGY Reason for Consultation Acute kidney injury on CKD, Hypernatremia Referring Provider: VANESSA LOPES MD 24 HR Interval Summary Free Text/Dictation Free water stopped yesterday, Na 146, Cr 2.30, no acute events overnight Exam/Review of Systems Vital Signs Vitals Vital Signs Date Time Temp Pulse Resp B/P Pulse Ox O2 Delivery O2 Flow Rate FiO2 10/06/16 07:57 98.2 65 18 131/80 95 10/02/16 19:50 Room Air Intake and Output 10/05/16 10/05/16 10/06/16 15:00 23:00 07:00 Intake Total 630 ml 315 ml 895 ml Balance 630 ml 315 ml 895 ml Exam NECK: Supple, no JVD, no lymphadenopathy. LUNGS: Decreased breath sounds on the right middle lobe and right lower lobe. No wheezing. HEART: S1, S2, with regular rhythm. ABDOMEN: Soft. G-tube in place, site is clear. No erythema. EXTREMITIES: No clubbing, cyanosis, or edema. Results Result Diagram: 2/26/17 0520 2/26/17 0520 Results 24 hrs Laboratory Tests Test 10/05/16 12:25 10/05/16 16:48 10/05/16 21:51 10/06/16 05:20 Bedside Glucose 155 130 102 Anion Gap 17 H Basophils # 0.1 Basophils % 1.3 Blood Urea Nitrogen 31 H Calcium Level 9.3 Carbon Dioxide Level 22 Chloride Level 111 H Creatinine 2.30 H Eosinophils # 0.2 Eosinophils % 2.6 Glucose Level 89 Hematocrit 33.7 L Hemoglobin 11.5 L Lymphocytes # 3.2 H Lymphocytes % 50.9 Mean Corpuscular Hemoglobin 29.7 Mean Corpuscular Hemoglobin Concent 34.1 Mean Corpuscular Volume 87.1 Mean Platelet Volume 9.7 Monocytes # 0.5 Monocytes % 8.4 Neutrophils # 2.3 Neutrophils % 36.3 L Nucleated Red Blood Cells # 0.0 Nucleated Red Blood Cells % 0.0 Platelet Count 363 Potassium Level 3.9 Red Blood Count 3.87 L Red Cell Distribution Width 14.1 Sodium Level 146 H White Blood Count 6.2 Test 10/06/16 08:25 10/06/16 12:10 Bedside Glucose 94 134 Medications Medications Current Medications Ondansetron HCl (Zofran Inj) 4 mg Q6H PRN IV NAUSEA AND/OR VOMITING Last administered on 09/30/16 12:48; Admin Dose 4 MG; Start 09/28/16 at 09:00 Oxycodone/ Acetaminophen (Percocet (5/ 325)) 1 tab Q6H PRN PO PAIN Last administered on 09/29/16 11:51; Admin Dose 1 TAB; Start 09/28/16 at 12:00 Acetaminophen (Tylenol Tab) 500 mg Q6H PRN PO PAIN AND OR ELEVATED TEMP; Start 09/28/16 at 11:30 Allopurinol (Zyloprim) 100 mg DAILY PO Last administered on 10/06/16 08:30; Admin Dose 100 MG; Start 09/29/16 at 09:00 Amlodipine Besylate (Norvasc) 5 mg DAILY PO Last administered on 10/06/16 08: 31; Admin Dose 5 MG; Start 09/29/16 at 09:00 Eye Lubricant (Artificial Tears Oph) 2 drop QID BOTH EYES Last administered on 10/06/16 12:13; Admin Dose 2 DROP; Start 09/28/16 at 13:00 Atorvastatin Calcium (Lipitor) 10 mg QHS PO Last administered on 10/05/16 21: 45; Admin Dose 10 MG; Start 09/28/16 at 21:00 Febuxostat (Uloric) 40 mg DAILY PO Last administered on 10/06/16 08:29; Admin Dose 40 MG; Start 09/29/16 at 09:00 Lactobacillus Acidoph/Bulgaricus (Floranex) 1 tab TID PO Last administered on 12:13; Admin Dose 1 TAB; Start 09/28/16 at 13:00 Metoprolol Tartrate (Lopressor) 100 mg BID PO Last administered on 10/06/16 08 :30; Admin Dose 100 MG; Start 09/28/16 at 21:00 Nystatin (Nystatin Susp) 5 ml TID PO Last administered on 10/06/16 12:13; Admin Dose 5 ML; Start 09/28/16 at 13:00 Pantoprazole (Protonix Tab) 40 mg DAILY@06 PO Last administered on 10/06/16 05 :40; Admin Dose 40 MG; Start 09/29/16 at 06:00 Psyllium Hydrophilic Mucilloid (Metamucil) 1 pkt DAILY PO Last administered on 10/06/16 08:28; Admin Dose 1 PKT; Start 09/29/16 at 09:00 Tamsulosin HCl (Flomax) 0.4 mg DAILY PO Last administered on 10/06/16 08:29; Admin Dose 0.4 MG; Start 09/29/16 at 09:00 Miscellaneous Information 1 ea NOTE XX ; Start 09/28/16 at 12:00 Glucose (Glutose) 15 gm Q15M PRN PO DECREASED GLUCOSE; Start 09/28/16 at 12:00 Glucose (Glutose) 22.5 gm Q15M PRN PO DECREASED GLUCOSE; Start 09/28/16 at 12: 00 Dextrose (D50w Syringe) 25 ml Q15M PRN IV DECREASED GLUCOSE; Start 09/28/16 at 12:00 Dextrose (D50w Syringe) 50 ml Q15M PRN IV DECREASED GLUCOSE; Start 09/28/16 at 12:00 Glucagon (Glucagen) 1 mg Q15M PRN IM DECREASED GLUCOSE; Start 09/28/16 at 12:00 Glucose (Glutose) 15 gm Q15M PRN BUCCAL DECREASED GLUCOSE; Start 09/28/16 at 12 :00 Colchicine (Colchicine) 0.6 mg DAILY PO Last administered on 10/06/16 08:30; Admin Dose 0.6 MG; Start 09/29/16 at 09:00 Ascorbic Acid (Vitamin C) 500 mg DAILY PO Last administered on 10/06/16 08:30 ; Admin Dose 500 MG; Start 09/28/16 at 12:13 Clonidine (Catapres) 0.1 mg Q12H PRN PO SBP ABOVE 160 Last administered on 09/30 12:56; Admin Dose 0.1 MG; Start 09/28/16 at 12:14 Colchicine (Colchicine) 0.6 mg DAILY PRN PO gout; Start 09/28/16 at 12:14 Ferrous Sulfate (Ferrous Sulfate (Ec)) 325 mg DAILY PO Last administered on 08:31; Admin Dose 325 MG; Start 09/29/16 at 09:00 Hydralazine HCl (Apresoline) 25 mg Q8H PRN PO SPB ABOVE 160 Last administered on 09/30/16 08:22; Admin Dose 25 MG; Start 09/28/16 at 12:16 Acetaminophen/ Hydrocodone Bitart ([place] (10/325)) 1 tab Q4H PRN PO PAIN Last administered on 10/06/16 08:30; Admin Dose 1 TAB; Start 09/28/16 at 12:16 Lactulose (Enulose) 20 gm Q8 PRN PO CONSTIPATION; Start 09/28/16 at 12:17 Heparin Sodium (Porcine) (Heparin (5000 Units/0.5 ml)) 5,000 unit Q12 SC Last administered on 10/06/16 08:47; Admin Dose 5,000 UNIT; Start 09/29/16 at 09:00 Hydromorphone HCl (Dilaudid) 0.5 mg Q4H PRN IV PAIN Last administered on 16:45; Admin Dose 0.5 MG; Start 09/29/16 at 11:30 Hydralazine HCl 10 mg 10 mg Q6H PRN IV if BP > 170 Last administered on 21:50; Admin Dose 10 MG; Start 09/30/16 at 13:30 Ceftriaxone Sodium (Rocephin) 50 ml @ 100 mls/hr Q24H IVPB Last administered on 10/06/16 08:28; Admin Dose 100 MLS/HR; Start 10/02/16 at 09:00 Quetiapine Fumarate 100 mg 100 mg QHS PO Last administered on 10/05/16 21:45; Admin Dose 100 MG; Start 10/01/16 at 21:00 Sodium Chloride (1/2 NS) 1,000 ml @ 70 mls/hr [id number] IV Last administered on 10/06/16 03:15; Admin Dose 70 MLS/HR; Start 10/02/16 at 12:30 Amlodipine Besylate (Norvasc) 10 mg DAILY PO Last administered on 10/06/16 08: 29; Admin Dose 10 MG; Start 10/03/16 at 09:00 NI WATSON MD Oct 06, 2016 12:18
--- NOTE | 2016-10-06 15:36 | CONS ---
Date/Time of Note Date/Time of Note DATE: 10/06/16 TIME: 15:35 Assessment/Plan Assessment/Plan Chief Complaint/Hosp Course ID PROGRESS NOTE CURRENT ABX=> Ceftriaxone #9 24H INTERVAL SUMMARY * Clincally stable - -no new issues, no c/o = overall improved * Afebrile, VSS, NAD PHYSICAL EXAMINATION: GENERAL: VSS, NAD HEENT: Unremarkable -- NECK: Supple, trachea midline. CHEST: Rise symmetrical, without dyspnea on observation HEART: Pulse RRR ABDOMEN: Soft, benign EXTREMITIES: Warm ID ASSESSMENT 66 yo M w/PMHx CVA/craniotomy decompression, neurogenic bladder admit with: 1. Polymicrobial urinary tract infection. URINE CULTURE Final Organism 1 K.PNEUMONIAE SSP PNEUMONIAE COLONY COUNT >100,000 CFU/ml Organism 2 PROVIDENCIA STUARTII COLONY COUNT >100,000 CFU/ml 2. Acute on chronic kidney disease. 3. Benign prostatic hypertrophy. 4. Diabetes. 5. Hypertension. INVASIVES: PIV, ABX ALLERGY: KNDA CURRENT ABX: => Ceftriaxone #9 s/p ID RECOMMENDATIONS 1. Continue current ABX x 10 days 2. May DC on current ABX . Problems: Consultation Date/Type/Reason Admit Date/Time Sep 28, 2016 at 01:37 Type of Consultation: ID Referring Provider: VANESSA LOPES MD Exam/Review of Systems Vital Signs Vitals Vital Signs Date Time Temp Pulse Resp B/P Pulse Ox O2 Delivery O2 Flow Rate FiO2 10/06/16 07:57 98.2 65 18 131/80 95 10/02/16 19:50 Room Air Intake and Output 10/05/16 10/05/16 10/06/16 15:00 23:00 07:00 Intake Total 630 ml 315 ml 895 ml Balance 630 ml 315 ml 895 ml Results Result Diagram: 10/06/16 0520 10/06/16 0520 Results 24 hrs Laboratory Tests Test 10/05/16 16:48 10/05/16 21:51 10/06/16 05:20 10/06/16 08:25 Bedside Glucose 130 102 94 Anion Gap 17 H Basophils # 0.1 Basophils % 1.3 Blood Urea Nitrogen 31 H Calcium Level 9.3 Carbon Dioxide Level 22 Chloride Level 111 H Creatinine 2.30 H Eosinophils # 0.2 Eosinophils % 2.6 Glucose Level 89 Hematocrit 33.7 L Hemoglobin 11.5 L Lymphocytes # 3.2 H Lymphocytes % 50.9 Mean Corpuscular Hemoglobin 29.7 Mean Corpuscular Hemoglobin Concent 34.1 Mean Corpuscular Volume 87.1 Mean Platelet Volume 9.7 Monocytes # 0.5 Monocytes % 8.4 Neutrophils # 2.3 Neutrophils % 36.3 L Nucleated Red Blood Cells # 0.0 Nucleated Red Blood Cells % 0.0 Platelet Count 363 Potassium Level 3.9 Red Blood Count 3.87 L Red Cell Distribution Width 14.1 Sodium Level 146 H White Blood Count 6.2 Test 10/06/16 12:10 Bedside Glucose 134 Medications Medications Current Medications Ondansetron HCl (Zofran Inj) 4 mg Q6H PRN IV NAUSEA AND/OR VOMITING Last administered on 09/30/16 12:48; Admin Dose 4 MG; Start 09/28/16 at 09:00 Oxycodone/ Acetaminophen (Percocet (5/ 325)) 1 tab Q6H PRN PO PAIN Last administered on 09/29/16 11:51; Admin Dose 1 TAB; Start 09/28/16 at 12:00 Acetaminophen (Tylenol Tab) 500 mg Q6H PRN PO PAIN AND OR ELEVATED TEMP; Start 09/28/16 at 11:30 Allopurinol (Zyloprim) 100 mg DAILY PO Last administered on 10/06/16 08:30; Admin Dose 100 MG; Start 09/29/16 at 09:00 Amlodipine Besylate (Norvasc) 5 mg DAILY PO Last administered on 10/06/16 08: 31; Admin Dose 5 MG; Start 09/29/16 at 09:00 Eye Lubricant (Artificial Tears Oph) 2 drop QID BOTH EYES Last administered on 10/06/16 12:13; Admin Dose 2 DROP; Start 09/28/16 at 13:00 Atorvastatin Calcium (Lipitor) 10 mg QHS PO Last administered on 10/05/16 21: 45; Admin Dose 10 MG; Start 09/28/16 at 21:00 Febuxostat (Uloric) 40 mg DAILY PO Last administered on 10/06/16 08:29; Admin Dose 40 MG; Start 09/29/16 at 09:00 Lactobacillus Acidoph/Bulgaricus (Floranex) 1 tab TID PO Last administered on 12:13; Admin Dose 1 TAB; Start 09/28/16 at 13:00 Metoprolol Tartrate (Lopressor) 100 mg BID PO Last administered on 10/06/16 08 :30; Admin Dose 100 MG; Start 09/28/16 at 21:00 Nystatin (Nystatin Susp) 5 ml TID PO Last administered on 10/06/16 12:13; Admin Dose 5 ML; Start 09/28/16 at 13:00 Pantoprazole (Protonix Tab) 40 mg DAILY@06 PO Last administered on 10/06/16 05 :40; Admin Dose 40 MG; Start 09/29/16 at 06:00 Psyllium Hydrophilic Mucilloid (Metamucil) 1 pkt DAILY PO Last administered on 10/06/16 08:28; Admin Dose 1 PKT; Start 09/29/16 at 09:00 Tamsulosin HCl (Flomax) 0.4 mg DAILY PO Last administered on 10/06/16 08:29; Admin Dose 0.4 MG; Start 09/29/16 at 09:00 Miscellaneous Information 1 ea NOTE XX ; Start 09/28/16 at 12:00 Glucose (Glutose) 15 gm Q15M PRN PO DECREASED GLUCOSE; Start 09/28/16 at 12:00 Glucose (Glutose) 22.5 gm Q15M PRN PO DECREASED GLUCOSE; Start 09/28/16 at 12: 00 Dextrose (D50w Syringe) 25 ml Q15M PRN IV DECREASED GLUCOSE; Start 09/28/16 at 12:00 Dextrose (D50w Syringe) 50 ml Q15M PRN IV DECREASED GLUCOSE; Start 09/28/16 at 12:00 Glucagon (Glucagen) 1 mg Q15M PRN IM DECREASED GLUCOSE; Start 09/28/16 at 12:00 Glucose (Glutose) 15 gm Q15M PRN BUCCAL DECREASED GLUCOSE; Start 09/28/16 at 12 :00 Colchicine (Colchicine) 0.6 mg DAILY PO Last administered on 10/06/16 08:30; Admin Dose 0.6 MG; Start 09/29/16 at 09:00 Ascorbic Acid (Vitamin C) 500 mg DAILY PO Last administered on 10/06/16 08:30 ; Admin Dose 500 MG; Start 09/28/16 at 12:13 Clonidine (Catapres) 0.1 mg Q12H PRN PO SBP ABOVE 160 Last administered on 09/30 12:56; Admin Dose 0.1 MG; Start 09/28/16 at 12:14 Colchicine (Colchicine) 0.6 mg DAILY PRN PO gout; Start 09/28/16 at 12:14 Ferrous Sulfate (Ferrous Sulfate (Ec)) 325 mg DAILY PO Last administered on 08:31; Admin Dose 325 MG; Start 09/29/16 at 09:00 Hydralazine HCl (Apresoline) 25 mg Q8H PRN PO SPB ABOVE 160 Last administered on 09/30/16 08:22; Admin Dose 25 MG; Start 09/28/16 at 12:16 Acetaminophen/ Hydrocodone Bitart ([place] ()) 1 tab Q4H PRN PO PAIN Last administered on 10/06/16 08:30; Admin Dose 1 TAB; Start 09/28/16 at 12:16 Lactulose (Enulose) 20 gm Q8 PRN PO CONSTIPATION; Start 09/28/16 at 12:17 Heparin Sodium (Porcine) (Heparin (5000 Units/0.5 ml)) 5,000 unit Q12 SC Last administered on 10/06/16 08:47; Admin Dose 5,000 UNIT; Start 09/29/16 at 09:00 Hydromorphone HCl (Dilaudid) 0.5 mg Q4H PRN IV PAIN Last administered on 16:45; Admin Dose 0.5 MG; Start 09/29/16 at 11:30 Hydralazine HCl 10 mg 10 mg Q6H PRN IV if BP > 170 Last administered on 21:50; Admin Dose 10 MG; Start 09/30/16 at 13:30 Ceftriaxone Sodium (Rocephin) 50 ml @ 100 mls/hr Q24H IVPB Last administered on 10/06/16 08:28; Admin Dose 100 MLS/HR; Start 10/02/16 at 09:00 Quetiapine Fumarate 100 mg 100 mg QHS PO Last administered on 10/05/16 21:45; Admin Dose 100 MG; Start 10/01/16 at 21:00 Sodium Chloride (1/2 NS) 1,000 ml @ 70 mls/hr [id number] IV Last administered on 10/06/16 03:15; Admin Dose 70 MLS/HR; Start 10/02/16 at 12:30 Amlodipine Besylate (Norvasc) 10 mg DAILY PO Last administered on 10/06/16 08: 29; Admin Dose 10 MG; Start 10/03/16 at 09:00 NIKA MANLEY NP Oct 06, 2016 15:36
== END 2016-10-06 19:40 | DRG 682 ==
LOC: E/R 21:10 → MS2 09-28 01:37
PROVIDERS: ADMIT Internal Medicine; ATTEND Internal Medicine
DX: N17.9 Acute kidney failure, unspecified (principal); G93.41 Metabolic encephalopathy; N39.0 Urinary tract infection, site not specified; E11.22 Type 2 diabetes mellitus with diabetic chronic kidney disease; N18.3 Chronic kidney disease, stage 3 (moderate); M10.9 Gout, unspecified; B96.1 Klebsiella pneumoniae [K. pneumoniae] as the cause of diseases classified elsewhere; E86.0 Dehydration; E78.5 Hyperlipidemia, unspecified; Z98.2 Presence of cerebrospinal fluid drainage device; Z86.73 Personal history of transient ischemic attack (TIA), and cerebral infarction without residual deficits; I12.9 Hypertensive chronic kidney disease with stage 1 through stage 4 chronic kidney disease, or unspecified chronic kidney disease; B96.89 Other specified bacterial agents as the cause of diseases classified elsewhere; N40.0 Benign prostatic hyperplasia without lower urinary tract symptoms
CPT/HCPCS: 36415; 70450; 71010; 73562; 76775; 80048; 80053; 80307; 81001; 81003; 82962; 83036; 83605; 84484; 85025; 85610; 85730; 87040; 87086; 92610; 93005; 96361; 96365; 96366; 96367; 96375; 97162; J0360; J0692; J0696; J1170; J1644; J1650; J1815; J2405; J7030

== ENCOUNTER 2016-10-06 11:47 | Inpatient (IN) | payer MEDICARE, OTHER ==
[~2016-10-06] VITALS: Ht 165.1 cm; Wt 71.2 kg
[~2016-10-06 11:47] MED LIST changes: +DEXT1CAP PO
[2016-10-06 20:00] VITALS: Ht 165.1 cm; Wt 71.2 kg
[2016-10-06 20:12] VITALS: BP 147/86; RESP 21
[2016-10-06 20:30] VITALS: BP 159/87; PULSE 69
[2016-10-06] MEDS ORDERED: DEXTROSE 50% 50 ML SYRINGE IV PRN ×2 (20:49)
[2016-10-06] MEDS ORDERED: CEFTRIAXONE 1 GM/NS 50 ML IVPB SCH (20:49)
[2016-10-06] MEDS ORDERED: OXYCODONE/ACETAMINOPHEN (5/325) TAB PO PRN (20:49)
[2016-10-06] MEDS ORDERED: GLUCAGON 1 MG INJ IM PRN (20:49)
[2016-10-06] MEDS ORDERED: COLCHICINE 0.6 MG TAB PO PRN (20:49)
[2016-10-06] MEDS ORDERED: ACETAMINOPHEN 500 MG TAB PO PRN (20:49)
[2016-10-06] MEDS ORDERED: GLUCOSE GEL 15 GRAM TUBE PO PRN ×2 (20:49)
[2016-10-06] MEDS ORDERED: hydrALAzine 20 MG INJ IV PRN (20:49)
[2016-10-06] MEDS ORDERED: ALBUTEROL/IPRATROPIUM (NEB) 3 ML AMP INH PRN (20:49)
[2016-10-06] MEDS ORDERED: ONDANSETRON 4 MG INJ IV PRN (20:49)
[2016-10-06] MEDS ORDERED: GLUCOSE GEL 15 GRAM TUBE BUCCAL PRN (20:49)
[2016-10-06] MEDS ORDERED: LACTULOSE 30ML CUP PO PRN (20:49)
[2016-10-06] MEDS: INSULIN ASPART [NOVOLOG] 3 ML PEN SC SCH (21:00)
[2016-10-06] MEDS: LACTOBACILLUS CHEW TAB PO SCH (21:29)
[2016-10-06] MEDS: ATORVASTATIN 10 MG TAB PO SCH (21:29)
[2016-10-06] MEDS: NYSTATIN SUSP 5 ML CUP PO SCH (21:30)
[2016-10-06] MEDS: ARTIFICIAL TEARS 15 ML OPH BOTH EYES SCH (21:30)
[2016-10-06] MEDS: METOPROLOL 100 MG TAB PO SCH (21:34)
[2016-10-06 21:49] LABS: URINE BILIRUBIN (Dip) NEGATIVE (NEGATIVE); URINE BLOOD (Dip) NEGATIVE (NEGATIVE); URINE COLOR LT. YELLOW (YELLOW); URINE GLUCOSE (Dip) NEGATIVE (NEGATIVE); URINE KETONES (Dip) NEGATIVE (NEGATIVE); URINE LEUKOCYTE ESTERASE (Dip) NEGATIVE (NEGATIVE); URINE NITRITE (Dip) NEGATIVE (NEGATIVE); URINE UROBILINOGEN (Dip) 0.2 E.U./dL (0.1-1.0)
[2016-10-06 21:52] LABS: ADD UMIC NO; URINE TOTAL PROTEIN (Dip) NEGATIVE (NEGATIVE)
[2016-10-06] MEDS: HEPARIN 5,000 UNIT/0.5 ML SYG SC SCH (22:02)
[2016-10-06] MEDS: QUETIAPINE 100 MG TAB PO SCH (22:08)
[2016-10-06] MEDS: SOD CHLORIDE 0.45% 1,000 ML IV SCH (22:09)
[2016-10-07] MEDS ORDERED: BISACODYL 10 MG SUPP PR PRN (03:00)
[2016-10-07] MEDS ORDERED: MAGNESIUM HYDROXIDE 30ML CUP PO PRN (03:00)
[2016-10-07] MEDS: PANTOPRAZOLE (EC) 40 MG TAB PO SCH (06:39)
[2016-10-07 07:01] LABS: ADD SCAN DIFF NO
[2016-10-07] MEDS: INSULIN ASPART [NOVOLOG] 3 ML PEN SC SCH ×3 (07:05→17:05)
[2016-10-07 07:10] LABS: BASOPHIL # 0.1 10^3/ul (0.0-0.1); BASOPHILS % 0.9 % (0.0-2.0); EOSINOPHILS # 0.3 10^3/ul (0.0-0.5); EOSINOPHILS % 3.7 % (0.0-7.0); HEMATOCRIT 35.2 % (42.0-52.0); HEMOGLOBIN 11.9 g/dl (14.0-18.0); LYMPHOCYTES # 3.4 10^3/ul (0.8-2.9); LYMPHOCYTES % 48.5 % (15.0-51.0); MEAN CORPUSCULAR HEMOGLOBIN 29.8 pg (29.0-33.0); MEAN CORPUSCULAR HGB CONC 33.8 g/dl (32.0-37.0); MEAN PLATELET VOLUME 9.3 fl (7.4-10.4); MONOCYTE # 0.5 10^3/ul (0.3-0.9); MONOCYTES % 7.8 % (0.0-11.0); NEUTROPHIL # 2.7 10^3/ul (1.6-7.5); NEUTROPHILS % 38.5 % (39.0-77.0); PLATELET COUNT 347 10^3/UL (140-415); RED CELL DISTRIBUTION WIDTH 14.1 % (11.5-14.5)
[2016-10-07 07:19] LABS: ALBUMIN 3.6 g/dl (3.3-4.9)
[2016-10-07 07:20] LABS: POTASSIUM 4.2 mmol/L (3.5-5.1)
[2016-10-07 07:22] LABS: ALBUMIN/GLOBULIN RATIO 1.2; CALCIUM 9.1 mg/dl (8.4-10.2); CREATININE 2.33 mg/dl (0.61-1.24); TOTAL PROTEIN 6.6 g/dl (6.1-8.1)
[2016-10-07 07:30] VITALS: BP 144/82; RESP 18
[2016-10-07] MEDS: [UNRECOGNIZED DRUG - REMARK] XX SCH ×3 (07:30→23:30)
[2016-10-07] MEDS: ARTIFICIAL TEARS 15 ML OPH BOTH EYES SCH ×4 (09:10→20:31)
[2016-10-07] MEDS: DOCUSATE SODIUM 100 MG CAP PO SCH ×2 (09:13→20:32)
[2016-10-07] MEDS: TAMSULOSIN (SR) 0.4 MG CAP PO SCH (09:13)
[2016-10-07] MEDS: LACTOBACILLUS CHEW TAB PO SCH ×3 (09:13→20:32)
[2016-10-07] MEDS: ASCORBIC ACID 500 MG TAB PO SCH (09:13)
[2016-10-07] MEDS: COLCHICINE 0.6 MG TAB PO SCH (09:13)
[2016-10-07] MEDS: FEBUXOSTAT 40 MG TABLET PO SCH (09:13)
[2016-10-07] MEDS: AMLODIPINE 10 MG TAB PO SCH (09:14)
[2016-10-07] MEDS: ALLOPURINOL 100 MG TAB PO SCH (09:15)
[2016-10-07] MEDS: METOPROLOL 100 MG TAB PO SCH ×2 (09:15→20:35)
[2016-10-07] MEDS: PSYLLIUM 28% PACKET PO SCH (09:15)
[2016-10-07] MEDS: NYSTATIN SUSP 5 ML CUP PO SCH ×3 (09:16→20:31)
[2016-10-07] MEDS: AMLODIPINE 5 MG TAB PO SCH (09:16)
[2016-10-07] MEDS: FERROUS SULFATE (EC) 325 MG TAB PO SCH (09:16)
[2016-10-07] MEDS: HEPARIN 5,000 UNIT/0.5 ML SYG SC SCH ×2 (09:17→20:39)
[2016-10-07] MEDS: CEFTRIAXONE 1 GM/NS 50 ML IVPB SCH (09:21)
[2016-10-07 10:11] VITALS: BP 159/88; PULSE 70
[2016-10-07] MEDS: SOD CHLORIDE 0.45% 1,000 ML IV SCH (11:07)
[2016-10-07] MEDS: HYDROCODONE/APAP (10/325) TAB PO PRN (13:17)
--- NOTE | 2016-10-07 14:52 | CONS ---
DATE OF ADMISSION: 10/06/2016 DATE OF CONSULTATION: 10/07/2016 TYPE OF CONSULTATION:. REHABILITATION IMPAIRMENT CATEGORY: Acute on chronic toxic metabolic encephalopathy. ACTIVE CO-MORBIDITIES: 1. Dysphagia with G-tube placement. 2. History of cerebrovascular accident. 3. Gout. 4. Urinary tract infection. 5. Status post ventriculoperitoneal shunt. 6. Acute on chronic kidney injury. 7. Hypertension. 8. Hyperlipidemia. 9. Benign prostatic hypertrophy. 10. Impairments in self-care, mobility, and cognition. HISTORY OF PRESENT ILLNESS: Patient is a 66-year-old right-handed gentleman with a history of crani otomy for hemorrhagic CVA, in addition to WET SUIT GLUER shunt, who was noted to have increased confusion requir ing hospitalization on 09/28/2016. Patient was diagnosed with acute on chronic encephalopathy secon amaury to urinary tract infection. A head CT was negative for acute bleed. Patient noted to have Kle bsiella pneumoniae UTI. Patient's hospital course also notable for gout. Patient now has been ana red to transfer to the rehabilitation unit for comprehensive interdisciplinary rehab care. FUNCTIONAL HISTORY: Prior to recent events, he was standby min assist for self-care mobility tasks. Currently, he requires maximal assist for self-care and mobility tasks. I have reviewed the preadmission screen, and the patient's current functional status is consistent w ith the preadmission screen. SOCIAL HISTORY: Patient reports living at home and hopes to return home upon discharge. PAST MEDICAL HISTORY: 1. History of craniotomy for hemorrhagic CVA and WET SUIT GLUER shunt. 2. Dysphagia, on G-tube feeds. 3. History of gout. 4. Left knee effusion. CURRENT MEDICATIONS: 1. [place] p.r.n. 2. Albuterol inhaler. 3. Zyloprim 100 mg p.o. daily. 4. Norvasc 15 mg p.o. daily. 5. Vitamin C. 6. Lipitor 10 mg p.o. at bedtime. 7. Rocephin IV. 8. Catapres p.r.n. 9. Colchicine 0.6 mg p.o. daily. 10. Uloric 40 mg p.o. daily. 11. Insulin sliding scale. 12. Heparin 5000 units subQ b.i.d. 13. Apresoline p.r.n. 14. Lopressor 100 mg b.i.d. 15. Percocet p.r.n. 16. Seroquel 100 mg p.o. at bedtime. 17. Flomax 0.4 mg p.o. daily. ALLERGIES: MORPHINE. PHYSICAL EXAMINATION: VITAL SIGNS: The patient is currently afebrile with stable vital signs. HEENT: The extraocular motion intact. Oropharynx clear. NECK: Supple. LUNGS: Clear anteriorly. CARDIAC: S1, S2. ABDOMEN: Soft, nontender, positive bowel sounds. NEUROLOGIC: He is awake and alert and oriented to person and place. He will follow simple 1-step c ommands. He demonstrates antigravity strength in bilateral upper extremity and lower extremity. He has impaired dynamic balance. PLAN: Patient has been admitted for comprehensive interdisciplinary acute rehab and is anticipated to tolerate 3 hours of daily therapy in divided doses for at least 5/7 days a week. The treatment p mao will include: 1. Physical therapy to focus on bed mobility, transfers, and household ambulation with the goal of having patient reach a standby assist level. 2. Occupational therapy to focus on hygiene, grooming, dressing, bathing, and toileting activities with goal of having patient reach standby assist level. 3. Rehabilitation nursing for carry-over of therapeutic interventions, the goal of continent of bow el and bladder, and the goal of patient and family education with regard to the aforementioned issue s. 4. Speech therapy for full cognitive reassessment and dysphagia management with the goal of having patient return to baseline cognition and meet nutritional needs by mouth. REHABILITATION BARRIER: Urinary retention. INTERVENTION FOR BARRIER: Currently using Potter catheter. ESTIMATED LENGTH OF STAY: 14 days. DISPOSITION GOAL: Home. I acknowledge that I performed a full physical examination on this patient within 24 hours of admiss ion to the rehabilitation unit and believe the patient is a good candidate for comprehensive interdi sciplinary rehab care and is anticipated to make reasonable goals in a reasonable period of time as outlined above. Dictated By: MORGAN JAMESON/GORGE Conf#: [id number] DID#: [id number]
--- NOTE | 2016-10-07 17:55 | HP ---
DATE OF ADMISSION: 10/06/2016 HISTORY OF PRESENT ILLNESS: The patient is a 66-year-old gentleman with extensive medical history. The patient with history of intracranial hemorrhage and status post FILLING LAYER UP shunt placement wit h patient with functional quadriplegia, diabetes mellitus type 2, hypertension, metabolic syndrome, chronic kidney disease. The patient also with chronic Potter catheter, with history of gout, hyperli pidemia. The patient was admitted for acute on chronic encephalopathy secondary to urinary tract in fection. The patient was treated for urinary tract infection. The patient was also given allopurin ol, colchicine and Uloric for gout flareups. The patient has difficulty working. The patient had w orked with physical therapist, and patient was admitted to [facility] [place] for further m anagement, physical and occupational therapy. PAST MEDICAL HISTORY: Includes status post intracranial hemorrhage; FILLING LAYER UP shunt placement; history of decubitus; dysphagia, status post G-tube placement; carpal tunnel syndrome; nephrolithiasis; chronic kidney disease; diabetes mellitus; hypertension and dysarthria, gout. PAST SURGICAL HISTORY: Status post ventriculostomy and lateral occipital craniotomy, evacuation at [facility] in 10/2015; status post FILLING LAYER UP shunt placement; status post cholecystectomy and status post left knee surgery with meniscal repair x2. FAMILY HISTORY: Noncontributory. 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 The patient denies any tobacco use, denies any alcohol use, denies any illicit drug use. ALLERGIES: THE PATIENT IS ALLERGIC TO MORPHINE. CURRENT MEDICATIONS: 1. Senna. 2. Ceftriaxone. 3. Colace. 4. Zofran. 5. NovoLog per moderate algorithm sliding scale. 6. Tylenol. 7. Percocet. 8. Norvasc. 9. Lipitor. 10. Uloric. 11. DuoNeb. 12. Floranex. 13. Lopressor. 14. Nystatin. 15. Protonix. 16. Metamucil. 17. Vitamin C. 18. ____. 19. Colchicine. 20. Ferrous sulfate. 21. Hydralazine. 22. Heparin. 23. Seroquel. 24. Norvasc. REVIEW OF SYSTEMS: A 10-point review of systems is negative unless what mentioned in HPI. PHYSICAL ASSESSMENT: GENERAL: Well-developed, well-nourished gentleman. No acute distress. VITAL SIGNS: Temperature 98.2, pulse is 70, blood pressure 159/88, respiratory rate 18, oxygen satu ration 97% on room air. HEENT: Head is atraumatic, normocephalic. Pupils equally round, reactive to light and accommodatio n. Oral mucosa is pink, moist. NECK: Supple. No cervical lymphadenopathy, no thyromegaly. CHEST: Lungs clear bilaterally. There are no rhonchi, wheezes, rales noted. CARDIOVASCULAR: Normal S1, S2. No murmurs, gallops, clicks, rubs noted. ABDOMEN: Round, soft, nondistended, nontender. Bowel sounds present. The patient has a G-tube wit h intact stoma. EXTREMITIES: No edema, clubbing, cyanosis. GENITOURINARY: The patient has a Potter catheter with clear urine. SKIN: No rash, petechiae noted. NEUROLOGIC: The patient is awake, alert and oriented x3. No focal deficit noted. Motor strength o f 5/5 in all extremities. ASSESSMENT AND PLAN: 1. Acute encephalopathy, resolved. 2. Urinary tract infection with cultures positive for Klebsiella pneumoniae and Providencia stuarti i. Continue Rocephin. Follow up infectious disease recommendations. Dr. Cha is following in in fectious disease consultation. 3. Chronic kidney disease stage III/IV. Continue to monitor BUN and creatinine. Avoid nephrotoxic medication. 4. Diabetes mellitus. Continue NovoLog per sliding scale. 5. Hypertension. Continue Norvasc and Lopressor. 7. Hyperlipidemia. Continue Lipitor. 8. Gout. Continue patient on allopurinol, colchicine and Uloric. 9. History of intracranial hemorrhage and history of ventriculoperitoneal shunt. 10. Chronic Potter catheter. 11. Continue heparin for deep venous thrombosis prophylaxis. Further recommendations based on clinical course. Plan of care discussed with Dr. Lopes. Dictated By: MARIA ANTONIA GERMAN ASSOCIATE SPA DIRECTOR for VANESSA LOPES MD SR/NTS Conf#: [id number] DID#: [id number]
[2016-10-07] MEDS: QUETIAPINE 100 MG TAB PO SCH (20:31)
[2016-10-07] MEDS: ATORVASTATIN 10 MG TAB PO SCH (20:32)
[2016-10-07] MEDS: SENNA TAB PO SCH (20:32)
[2016-10-07 20:40] VITALS: BP 150/81; RESP 18
[2016-10-07] MEDS ORDERED: QUINIDINE PO SCH (21:00)
[2016-10-07] MEDS: Insulin NOVOLOG SS MODERATE Algorithm (SS with meals and bedtime) SC SCH (21:00)
[2016-10-07] MEDS ORDERED: DEXTROMETHORPHAN PO SCH (21:00)
[2016-10-08] MEDS: ACCUCHECK AT 2AM (Patients on SS coverage) XX SCH (02:00)
[2016-10-08] MEDS: SOD CHLORIDE 0.45% 1,000 ML IV SCH ×2 (03:02→15:35)
[2016-10-08] MEDS: PANTOPRAZOLE (EC) 40 MG TAB PO SCH (05:56)
[2016-10-08] MEDS: [UNRECOGNIZED DRUG - REMARK] XX SCH ×2 (07:30→15:12)
[2016-10-08] MEDS: Insulin NOVOLOG SS MODERATE Algorithm (SS with meals and bedtime) SC SCH ×4 (07:35→21:00)
[2016-10-08 08:00] VITALS: BP 136/78; PULSE 53; RESP 19
[2016-10-08] MEDS: PSYLLIUM 28% PACKET PO SCH (09:11)
[2016-10-08] MEDS: NYSTATIN SUSP 5 ML CUP PO SCH ×3 (09:11→21:01)
[2016-10-08] MEDS: CEFTRIAXONE 1 GM/NS 50 ML IVPB SCH (09:12)
[2016-10-08] MEDS: ARTIFICIAL TEARS 15 ML OPH BOTH EYES SCH ×4 (09:12→21:00)
[2016-10-08] MEDS: FEBUXOSTAT 40 MG TABLET PO SCH (09:12)
[2016-10-08] MEDS: FERROUS SULFATE (EC) 325 MG TAB PO SCH (09:12)
[2016-10-08] MEDS: LACTOBACILLUS CHEW TAB PO SCH ×3 (09:13→21:00)
[2016-10-08] MEDS: COLCHICINE 0.6 MG TAB PO SCH (09:13)
[2016-10-08] MEDS: ASCORBIC ACID 500 MG TAB PO SCH (09:13)
[2016-10-08] MEDS: TAMSULOSIN (SR) 0.4 MG CAP PO SCH (09:13)
[2016-10-08] MEDS: ALLOPURINOL 100 MG TAB PO SCH (09:13)
[2016-10-08] MEDS: DOCUSATE SODIUM 100 MG CAP PO SCH ×2 (09:13→21:00)
[2016-10-08] MEDS: AMLODIPINE 5 MG TAB PO SCH (09:14)
[2016-10-08] MEDS: AMLODIPINE 10 MG TAB PO SCH (09:14)
[2016-10-08] MEDS: METOPROLOL 100 MG TAB PO SCH ×2 (09:14→21:01)
[2016-10-08] MEDS: HEPARIN 5,000 UNIT/0.5 ML SYG SC SCH ×2 (09:16→21:02)
--- NOTE | 2016-10-08 11:08 | CONS ---
Date/Time of Note Date/Time of Note DATE: 10/08/16 TIME: 11:06 Consult Date/Type/Reason Admit Date/Time Oct 06, 2016 at 19:58 Initial Consult Date Subjective No new complaints Objective Vital Signs Date Time Temp Pulse Resp B/P Pulse Ox O2 Delivery O2 Flow Rate FiO2 10/07/16 20:40 97.5 70 18 150/81 98 10/07/16 10:11 Room Air Intake and Output 10/07/16 10/07/16 10/08/16 15:00 23:00 07:00 Intake Total 1030 ml 1690 ml 2140 ml Output Total 500 ml 1000 ml Balance 530 ml 690 ml 2140 ml pulm- cta abd-softmod assist amb 50 feet Results/Medications Result Diagram: 10/07/16 0544 10/07/16 0544 Results 24 hrs Laboratory Tests Test 10/07/16 12:06 10/07/16 17:13 10/07/16 20:26 10/08/16 07:55 Bedside Glucose 106 98 120 83 Medications Current Medications Ondansetron HCl (Zofran Inj) 4 mg Q6H PRN IV NAUSEA AND/OR VOMITING; Start at 20:49 Oxycodone/ Acetaminophen (Percocet (5/ 325)) 1 tab Q6H PRN PO PAIN; Start 10/06 at 20:49 Acetaminophen (Tylenol Tab) 500 mg Q6H PRN PO PAIN AND OR ELEVATED TEMP; Start 10/06/16 at 20:49 Allopurinol (Zyloprim) 100 mg DAILY PO Last administered on 10/08/16 09:13; Admin Dose 100 MG; Start 10/06/16 at 20:49 Amlodipine Besylate (Norvasc) 5 mg DAILY PO Last administered on 10/08/16 09: 14; Admin Dose 5 MG; Start 10/06/16 at 20:49 Eye Lubricant (Artificial Tears Oph) 2 drop QID BOTH EYES Last administered on 10/08/16 09:12; Admin Dose 2 DROP; Start 10/06/16 at 20:49 Atorvastatin Calcium (Lipitor) 10 mg QHS PO Last administered on 10/07/16 20: 32; Admin Dose 10 MG; Start 10/06/16 at 20:49 Febuxostat (Uloric) 40 mg DAILY PO Last administered on 10/08/16 09:12; Admin Dose 40 MG; Start 10/06/16 at 20:49 Lactobacillus Acidoph/Bulgaricus (Floranex) 1 tab TID PO Last administered on 09:13; Admin Dose 1 TAB; Start 10/06/16 at 20:49 Metoprolol Tartrate (Lopressor) 100 mg BID PO Last administered on 10/08/16 09 :14; Admin Dose 100 MG; Start 10/06/16 at 20:49 Nystatin (Nystatin Susp) 5 ml TID PO Last administered on 10/08/16 09:11; Admin Dose 5 ML; Start 10/06/16 at 20:49 Pantoprazole (Protonix Tab) 40 mg DAILY@06 PO Last administered on 10/08/16 05 :56; Admin Dose 40 MG; Start 10/06/16 at 20:49 Psyllium Hydrophilic Mucilloid (Metamucil) 1 pkt DAILY PO Last administered on 10/08/16 09:11; Admin Dose 1 PKT; Start 10/06/16 at 20:49 Tamsulosin HCl (Flomax) 0.4 mg DAILY PO Last administered on 10/08/16 09:13; Admin Dose 0.4 MG; Start 10/06/16 at 20:49 Miscellaneous Information 1 ea NOTE XX ; Start 10/06/16 at 20:49 Glucose (Glutose) 15 gm Q15M PRN PO DECREASED GLUCOSE; Start 10/06/16 at 20:49 Glucose (Glutose) 22.5 gm Q15M PRN PO DECREASED GLUCOSE; Start 10/06/16 at 20: 49 Dextrose (D50w Syringe) 25 ml Q15M PRN IV DECREASED GLUCOSE; Start 10/06/16 at 20:49 Dextrose (D50w Syringe) 50 ml Q15M PRN IV DECREASED GLUCOSE; Start 10/06/16 at 20:49 Glucagon (Glucagen) 1 mg Q15M PRN IM DECREASED GLUCOSE; Start 10/06/16 at 20:49 Glucose (Glutose) 15 gm Q15M PRN BUCCAL DECREASED GLUCOSE; Start 10/06/16 at 20 :49 Colchicine (Colchicine) 0.6 mg DAILY PO Last administered on 10/08/16 09:13; Admin Dose 0.6 MG; Start 10/06/16 at 20:49 Ascorbic Acid (Vitamin C) 500 mg DAILY PO Last administered on 10/08/16 09:13 ; Admin Dose 500 MG; Start 10/06/16 at 20:49 Clonidine (Catapres) 0.1 mg Q12H PRN PO SBP ABOVE 160; Start 10/06/16 at 20:49 Colchicine (Colchicine) 0.6 mg DAILY PRN PO gout; Start 10/06/16 at 20:49 Ferrous Sulfate (Ferrous Sulfate (Ec)) 325 mg DAILY PO Last administered on 09:12; Admin Dose 325 MG; Start 10/06/16 at 20:49 Hydralazine HCl (Apresoline) 25 mg Q8H PRN PO SPB ABOVE 160; Start 10/06/16 at 20:49 Acetaminophen/ Hydrocodone Bitart ([place] (10325)) 1 tab Q4H PRN PO PAIN Last administered on 10/07/16 13:17; Admin Dose 1 TAB; Start 10/06/16 at 20:49 Lactulose (Enulose) 20 gm Q8 PRN PO CONSTIPATION; Start 10/06/16 at 20:49 Heparin Sodium (Porcine) (Heparin (5000 Units/0.5 ml)) 5,000 unit Q12 SC Last administered on 10/08/16 09:16; Admin Dose 5,000 UNIT; Start 10/06/16 at 20:49 Hydromorphone HCl (Dilaudid) 0.5 mg Q4H PRN IV PAIN; Start 10/06/16 at 20:49 Hydralazine HCl (Apresoline) 10 mg Q6H PRN IV if BP > 170; Start 10/06/16 at 20 :49 Quetiapine Fumarate 100 mg 100 mg QHS PO Last administered on 10/07/16 20:31; Admin Dose 100 MG; Start 10/06/16 at 20:49 Sodium Chloride (1/2 NS) 1,000 ml @ 70 mls/hr [id number] IV Last administered on 10/08/16 03:02; Admin Dose 70 MLS/HR; Start 10/06/16 at 20:49 Amlodipine Besylate 10 mg 10 mg DAILY PO Last administered on 10/08/16 09:14; Admin Dose 10 MG; Start 10/06/16 at 20:49 Ceftriaxone Sodium (Rocephin) 50 ml @ 100 mls/hr Q24H IVPB Last administered on 10/08/16 09:12; Admin Dose 100 MLS/HR; Start 10/07/16 at 09:00 Docusate Sodium (Colace) 100 mg BID PO Last administered on 10/08/16 09:13; Admin Dose 100 MG; Start 10/07/16 at 09:00 Senna (Senokot) 1 tab HS PO Last administered on 10/07/16 20:32; Admin Dose 1 TAB; Start 10/07/16 at 21:00 Bisacodyl (Dulcolax Supp) 10 mg DAILY PRN [place] CONSTIPATION; Start 10/07/16 at 03 :00 Magnesium Hydroxide (Milk Of Mag) 30 ml BID PRN PO CONSTIPATION; Start at 03:00 Non-Formulary Medication 1 ea HS PO ; Start 10/07/16 at 21:00; Status UNV Miscellaneous Information (*Order Clarification Bulletin) NEUDEXTA IS NON FORMULARY ITEM...PLE... Q8H XX ; Start 10/07/16 at 07:30 Diagnostic Test (Pha) (Accucheck) 1 ea 02 XX ; Start 10/08/16 at 02:00 Mupirocin (Bactroban) 1 applic BID TOP ; Start 10/08/16 at 21:00 Assessment/Plan Additional Assessment/Plan Rehab- Acute on chronic toxic metabolic encephalopathy; h.o CVA; h.o. VPS Tolerating rehab program Dysphagia with G-tube placement. Gout Urinary tract infection. Acute on chronic kidney injury. Hypertension. Hyperlipidemia. Benign prostatic hypertrophy. MORGAN RANGEL MD Oct 08, 2016 11:08
--- NOTE | 2016-10-08 19:10 | PN ---
Date/Time of Note Date/Time of Note DATE: 10/08/16 TIME: 19:08 Assessment/Plan VTE Prophylaxis VTE Prophylaxis Intervention: SCD's Lines/Catheters IV [facility]from [facility] [place] line still needed: Yes Urinary Cath still in place: Yes Reason Cath still needed: urinary retention Assessment/Plan Chief Complaint/Hosp Course ASSESSMENT AND PLAN: 1. Acute encephalopathy, resolved. 2. Urinary tract infection with cultures positive for Klebsiella pneumoniae and Providencia stuartii. Continue Rocephin. Follow up infectious disease recommendations. Dr. Cha is following in infectious disease consultation. 3. Chronic kidney disease stage III/IV. Continue to monitor BUN and creatinine. Avoid nephrotoxic medication. 4. Diabetes mellitus. Continue NovoLog per sliding scale. 5. Hypertension. Continue Norvasc and Lopressor. 7. Hyperlipidemia. Continue Lipitor. 8. Gout. Continue patient on allopurinol, colchicine and Uloric. 9. History of intracranial hemorrhage and history of ventriculoperitoneal shunt. 10. Chronic Potter catheter. 11. 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 Continue heparin for deep venous thrombosis prophylaxis. Further recommendations based on clinical course. Plan of care discussed with Dr. Cartagena. Problems: Subjective 24 Hr Interval Summary Free Text/Dictation Patient denies any nausea vomiting. Patient is able to exercise was physical therapy. Denies any pain Exam/Review of Systems Vital Signs Vitals Vital Signs Date Time Temp Pulse Resp B/P Pulse Ox O2 Delivery O2 Flow Rate FiO2 10/08/16 08:00 98.5 53 19 136/78 97 Room Air Intake and Output 10/07/16 10/07/16 10/08/16 15:00 23:00 07:00 Intake Total 1030 ml 1690 ml 2140 ml Output Total 500 ml 1000 ml Balance 530 ml 690 ml 2140 ml Exam GENERAL: Well-developed, well-nourished gentleman. No acute distress. HEENT: Head is atraumatic, normocephalic. Pupils equally round, reactive to light and accommodation. NECK: Supple. No cervical lymphadenopathy, no thyromegaly. CHEST: Lungs clear bilaterally. There are no rhonchi, wheezes, rales noted. CARDIOVASCULAR: Normal S1, S2. No murmurs, gallops, clicks, rubs noted. ABDOMEN: Round, soft, nondistended, nontender. Bowel sounds present. The patient has a G-tube with intact stoma. EXTREMITIES: No edema, clubbing, cyanosis. GENITOURINARY: The patient has a Potter catheter with clear urine. SKIN: No rash, petechiae noted. NEUROLOGIC: The patient is awake, alert and oriented x3. Results Result Diagram: 10/07/16 0544 10/07/16 0544 Results 24 hrs Laboratory Tests Test 10/07/16 20:26 10/08/16 07:55 10/08/16 12:03 10/08/16 17:12 Bedside Glucose 120 83 97 129 Medications Medications Current Medications Ondansetron HCl (Zofran Inj) 4 mg Q6H PRN IV NAUSEA AND/OR VOMITING; Start at 20:49 Oxycodone/ Acetaminophen (Percocet (5/ 325)) 1 tab Q6H PRN PO PAIN; Start 10/06 at 20:49 Acetaminophen (Tylenol Tab) 500 mg Q6H PRN PO PAIN AND OR ELEVATED TEMP; Start 10/06/16 at 20:49 Allopurinol (Zyloprim) 100 mg DAILY PO Last administered on 10/08/16 09:13; Admin Dose 100 MG; Start 10/06/16 at 20:49 Amlodipine Besylate (Norvasc) 5 mg DAILY PO Last administered on 10/08/16 09: 14; Admin Dose 5 MG; Start 10/06/16 at 20:49 Eye Lubricant (Artificial Tears Oph) 2 drop QID BOTH EYES Last administered on 10/08/16 17:39; Admin Dose 2 DROP; Start 10/06/16 at 20:49 Atorvastatin Calcium (Lipitor) 10 mg QHS PO Last administered on 10/07/16 20: 32; Admin Dose 10 MG; Start 10/06/16 at 20:49 Febuxostat (Uloric) 40 mg DAILY PO Last administered on 10/08/16 09:12; Admin Dose 40 MG; Start 10/06/16 at 20:49 Lactobacillus Acidoph/Bulgaricus (Floranex) 1 tab TID PO Last administered on 12:51; Admin Dose 1 TAB; Start 10/06/16 at 20:49 Metoprolol Tartrate (Lopressor) 100 mg BID PO Last administered on 10/08/16 09 :14; Admin Dose 100 MG; Start 10/06/16 at 20:49 Nystatin (Nystatin Susp) 5 ml TID PO Last administered on 10/08/16 12:51; Admin Dose 5 ML; Start 10/06/16 at 20:49 Pantoprazole (Protonix Tab) 40 mg DAILY@06 PO Last administered on 10/08/16 05 :56; Admin Dose 40 MG; Start 10/06/16 at 20:49 Psyllium Hydrophilic Mucilloid (Metamucil) 1 pkt DAILY PO Last administered on 10/08/16 09:11; Admin Dose 1 PKT; Start 10/06/16 at 20:49 Tamsulosin HCl (Flomax) 0.4 mg DAILY PO Last administered on 10/08/16 09:13; Admin Dose 0.4 MG; Start 10/06/16 at 20:49 Miscellaneous Information 1 ea NOTE XX ; Start 10/06/16 at 20:49 Glucose (Glutose) 15 gm Q15M PRN PO DECREASED GLUCOSE; Start 10/06/16 at 20:49 Glucose (Glutose) 22.5 gm Q15M PRN PO DECREASED GLUCOSE; Start 10/06/16 at 20: 49 Dextrose (D50w Syringe) 25 ml Q15M PRN IV DECREASED GLUCOSE; Start 10/06/16 at 20:49 Dextrose (D50w Syringe) 50 ml Q15M PRN IV DECREASED GLUCOSE; Start 10/06/16 at 20:49 Glucagon (Glucagen) 1 mg Q15M PRN IM DECREASED GLUCOSE; Start 10/06/16 at 20:49 Glucose (Glutose) 15 gm Q15M PRN BUCCAL DECREASED GLUCOSE; Start 10/06/16 at 20 :49 Colchicine (Colchicine) 0.6 mg DAILY PO Last administered on 10/08/16 09:13; Admin Dose 0.6 MG; Start 10/06/16 at 20:49 Ascorbic Acid (Vitamin C) 500 mg DAILY PO Last administered on 10/08/16 09:13 ; Admin Dose 500 MG; Start 10/06/16 at 20:49 Clonidine (Catapres) 0.1 mg Q12H PRN PO SBP ABOVE 160; Start 10/06/16 at 20:49 Colchicine (Colchicine) 0.6 mg DAILY PRN PO gout; Start 10/06/16 at 20:49 Ferrous Sulfate (Ferrous Sulfate (Ec)) 325 mg DAILY PO Last administered on 09:12; Admin Dose 325 MG; Start 10/06/16 at 20:49 Hydralazine HCl (Apresoline) 25 mg Q8H PRN PO SPB ABOVE 160; Start 10/06/16 at 20:49 Acetaminophen/ Hydrocodone Bitart ([place] (10/325)) 1 tab Q4H PRN PO PAIN Last administered on 10/07/16 13:17; Admin Dose 1 TAB; Start 10/06/16 at 20:49 Lactulose (Enulose) 20 gm Q8 PRN PO CONSTIPATION; Start 10/06/16 at 20:49 Heparin Sodium (Porcine) (Heparin (5000 Units/0.5 ml)) 5,000 unit Q12 SC Last administered on 10/08/16 09:16; Admin Dose 5,000 UNIT; Start 10/06/16 at 20:49 Hydromorphone HCl (Dilaudid) 0.5 mg Q4H PRN IV PAIN; Start 10/06/16 at 20:49 Hydralazine HCl (Apresoline) 10 mg Q6H PRN IV if BP > 170; Start 10/06/16 at 20 :49 Quetiapine Fumarate 100 mg 100 mg QHS PO Last administered on 10/07/16 20:31; Admin Dose 100 MG; Start 10/06/16 at 20:49 Sodium Chloride (1/2 NS) 1,000 ml @ 70 mls/hr [id number] IV Last administered on 10/08/16 15:35; Admin Dose 70 MLS/HR; Start 10/06/16 at 20:49 Amlodipine Besylate (Norvasc) 10 mg DAILY PO Last administered on 10/08/16 09: 14; Admin Dose 10 MG; Start 10/06/16 at 20:49 Docusate Sodium (Colace) 100 mg BID PO Last administered on 10/08/16 09:13; Admin Dose 100 MG; Start 10/07/16 at 09:00 Senna (Senokot) 1 tab HS PO Last administered on 10/07/16 20:32; Admin Dose 1 TAB; Start 10/07/16 at 21:00 Bisacodyl (Dulcolax Supp) 10 mg DAILY PRN [place] CONSTIPATION; Start 10/07/16 at 03 :00 Magnesium Hydroxide (Milk Of Mag) 30 ml BID PRN PO CONSTIPATION; Start at 03:00 Non-Formulary Medication 1 ea HS PO ; Start 10/07/16 at 21:00; Status UNV Miscellaneous Information (*Order Clarification Bulletin) NEUDEXTA IS NON FORMULARY ITEM...PLE... Q8H XX ; Start 10/07/16 at 07:30 Diagnostic Test (Pha) (Accucheck) 1 ea 02 XX ; Start 10/08/16 at 02:00 Mupirocin (Bactroban) 1 applic BID TOP ; Start 10/08/16 at 21:00 MARIA ANTONIA GERMAN Oct 08, 2016 19:10
[2016-10-08 20:00] VITALS: BP 152/87; RESP 18
[2016-10-08] MEDS: SENNA TAB PO SCH (21:01)
[2016-10-08] MEDS: QUETIAPINE 100 MG TAB PO SCH (21:01)
[2016-10-08] MEDS: ATORVASTATIN 10 MG TAB PO SCH (21:01)
[2016-10-08] MEDS: MUPIROCIN 2% 22 GM OINT TOP SCH (21:03)
[2016-10-09] MEDS: ACCUCHECK AT 2AM (Patients on SS coverage) XX SCH (02:00)
[2016-10-09] MEDS: PANTOPRAZOLE (EC) 40 MG TAB PO SCH (06:26)
[2016-10-09 07:30] VITALS: BP 115/72; RESP 18
[2016-10-09] MEDS: Insulin NOVOLOG SS MODERATE Algorithm (SS with meals and bedtime) SC SCH ×4 (07:35→20:55)
[2016-10-09] MEDS: HYDROmorphONE 1 MG/ML SYG IV PRN ×4 (07:38→18:23)
[2016-10-09] MEDS: FERROUS SULFATE (EC) 325 MG TAB PO SCH (08:56)
[2016-10-09] MEDS: FEBUXOSTAT 40 MG TABLET PO SCH (08:56)
[2016-10-09] MEDS: LACTOBACILLUS CHEW TAB PO SCH ×3 (08:56→20:54)
[2016-10-09] MEDS: TAMSULOSIN (SR) 0.4 MG CAP PO SCH (08:56)
[2016-10-09] MEDS: ASCORBIC ACID 500 MG TAB PO SCH (08:56)
[2016-10-09] MEDS: DOCUSATE SODIUM 100 MG CAP PO SCH ×2 (08:56→20:54)
[2016-10-09] MEDS: COLCHICINE 0.6 MG TAB PO SCH (08:57)
[2016-10-09] MEDS: ALLOPURINOL 100 MG TAB PO SCH (08:57)
[2016-10-09] MEDS: HEPARIN 5,000 UNIT/0.5 ML SYG SC SCH ×2 (08:58→20:57)
[2016-10-09] MEDS: PSYLLIUM 28% PACKET PO SCH (09:00)
[2016-10-09] MEDS: AMLODIPINE 10 MG TAB PO SCH (09:05)
[2016-10-09] MEDS: AMLODIPINE 5 MG TAB PO SCH (09:06)
[2016-10-09] MEDS: METOPROLOL 100 MG TAB PO SCH ×2 (09:06→20:54)
[2016-10-09] MEDS: NYSTATIN SUSP 5 ML CUP PO SCH ×3 (09:07→20:54)
[2016-10-09] MEDS: MUPIROCIN 2% 22 GM OINT TOP SCH ×2 (12:41→20:55)
[2016-10-09] MEDS: ARTIFICIAL TEARS 15 ML OPH BOTH EYES SCH ×4 (12:42→20:55)
[2016-10-09] MEDS: HYDROCODONE/APAP (10/325) TAB PO PRN (13:03)
--- NOTE | 2016-10-09 13:07 | CONS ---
Date/Time of Note Date/Time of Note DATE: 10/09/16 TIME: 13:06 Consult Date/Type/Reason Admit Date/Time Oct 06, 2016 at 19:58 Subjective Doing well, no complaints Objective pulm-cta abd-soft min/mod ambulation Vital Signs Date Time Temp Pulse Resp B/P Pulse Ox O2 Delivery O2 Flow Rate FiO2 10/09/16 07:30 98.0 52 18 115/72 96 10/08/16 08:00 Room Air Intake and Output 10/08/16 10/08/16 10/09/16 14:59 22:59 06:59 Intake Total 1050 ml 860 ml 1850 ml Output Total 1400 ml Balance -350 ml 860 ml 1850 ml Results/Medications Result Diagram: 10/07/16 0544 10/07/16 0544 Results 24 hrs Laboratory Tests Test 10/08/16 17:12 10/08/16 20:59 10/09/16 07:40 10/09/16 11:50 Bedside Glucose 129 123 84 105 Medications Current Medications Ondansetron HCl (Zofran Inj) 4 mg Q6H PRN IV NAUSEA AND/OR VOMITING; Start at 20:49 Oxycodone/ Acetaminophen (Percocet (5/ 325)) 1 tab Q6H PRN PO PAIN; Start 10/06 at 20:49 Acetaminophen (Tylenol Tab) 500 mg Q6H PRN PO PAIN AND OR ELEVATED TEMP; Start 10/06/16 at 20:49 Allopurinol (Zyloprim) 100 mg DAILY PO Last administered on 10/09/16 08:57; Admin Dose 100 MG; Start 10/06/16 at 20:49 Amlodipine Besylate (Norvasc) 5 mg DAILY PO Last administered on 10/09/16 09:06 ; Admin Dose 5 MG; Start 10/06/16 at 20:49 Eye Lubricant (Artificial Tears Oph) 2 drop QID BOTH EYES Last administered on 10/09/16 12:42; Admin Dose 2 DROP; Start 10/06/16 at 20:49 Atorvastatin Calcium (Lipitor) 10 mg QHS PO Last administered on 10/08/16 21: 01; Admin Dose 10 MG; Start 10/06/16 at 20:49 Febuxostat (Uloric) 40 mg DAILY PO Last administered on 10/09/16 08:56; Admin Dose 40 MG; Start 10/06/16 at 20:49 Lactobacillus Acidoph/Bulgaricus (Floranex) 1 tab TID PO Last administered on 08:56; Admin Dose 1 TAB; Start 10/06/16 at 20:49 Metoprolol Tartrate (Lopressor) 100 mg BID PO Last administered on 10/09/16 09: 06; Admin Dose 100 MG; Start 10/06/16 at 20:49 Nystatin (Nystatin Susp) 5 ml TID PO Last administered on 10/09/16 09:07; Admin Dose 5 ML; Start 10/06/16 at 20:49 Pantoprazole (Protonix Tab) 40 mg DAILY@06 PO Last administered on 10/09/16 06: 26; Admin Dose 40 MG; Start 10/06/16 at 20:49 Psyllium Hydrophilic Mucilloid (Metamucil) 1 pkt DAILY PO Last administered on 10/08/16 09:11; Admin Dose 1 PKT; Start 10/06/16 at 20:49 Tamsulosin HCl (Flomax) 0.4 mg DAILY PO Last administered on 10/09/16 08:56; Admin Dose 0.4 MG; Start 10/06/16 at 20:49 Miscellaneous Information 1 ea NOTE XX ; Start 10/06/16 at 20:49 Glucose (Glutose) 15 gm Q15M PRN PO DECREASED GLUCOSE; Start 10/06/16 at 20:49 Glucose (Glutose) 22.5 gm Q15M PRN PO DECREASED GLUCOSE; Start 10/06/16 at 20: 49 Dextrose (D50w Syringe) 25 ml Q15M PRN IV DECREASED GLUCOSE; Start 10/06/16 at 20:49 Dextrose (D50w Syringe) 50 ml Q15M PRN IV DECREASED GLUCOSE; Start 10/06/16 at 20:49 Glucagon (Glucagen) 1 mg Q15M PRN IM DECREASED GLUCOSE; Start 10/06/16 at 20:49 Glucose (Glutose) 15 gm Q15M PRN BUCCAL DECREASED GLUCOSE; Start 10/06/16 at 20 :49 Colchicine (Colchicine) 0.6 mg DAILY PO Last administered on 10/09/16 08:57; Admin Dose 0.6 MG; Start 10/06/16 at 20:49 Ascorbic Acid (Vitamin C) 500 mg DAILY PO Last administered on 10/09/16 08:56; Admin Dose 500 MG; Start 10/06/16 at 20:49 Clonidine (Catapres) 0.1 mg Q12H PRN PO SBP ABOVE 160; Start 10/06/16 at 20:49 Colchicine (Colchicine) 0.6 mg DAILY PRN PO gout; Start 10/06/16 at 20:49 Ferrous Sulfate (Ferrous Sulfate (Ec)) 325 mg DAILY PO Last administered on 10/09 08:56; Admin Dose 325 MG; Start 10/06/16 at 20:49 Hydralazine HCl (Apresoline) 25 mg Q8H PRN PO SPB ABOVE 160; Start 10/06/16 at 20:49 Acetaminophen/ Hydrocodone Bitart ([place] (10)) 1 tab Q4H PRN PO PAIN Last administered on 10/09/16 13:03; Admin Dose 1 TAB; Start 10/06/16 at 20:49 Lactulose (Enulose) 20 gm Q8 PRN PO CONSTIPATION; Start 10/06/16 at 20:49 Heparin Sodium (Porcine) (Heparin (5000 Units/0.5 ml)) 5,000 unit Q12 SC Last administered on 10/09/16 08:58; Admin Dose 5,000 UNIT; Start 10/06/16 at 20:49 Hydromorphone HCl (Dilaudid) 0.5 mg Q4H PRN IV PAIN Last administered on 07:38; Admin Dose 0.5 MG; Start 10/06/16 at 20:49 Hydralazine HCl (Apresoline) 10 mg Q6H PRN IV if BP > 170; Start 10/06/16 at 20 :49 Quetiapine Fumarate 100 mg 100 mg QHS PO Last administered on 10/08/16 21:01; Admin Dose 100 MG; Start 10/06/16 at 20:49 Sodium Chloride (1/2 NS) 1,000 ml @ 70 mls/hr [id number] IV Last administered on 10/08/16 15:35; Admin Dose 70 MLS/HR; Start 10/06/16 at 20:49 Amlodipine Besylate (Norvasc) 10 mg DAILY PO Last administered on 10/09/16 09: 05; Admin Dose 10 MG; Start 10/06/16 at 20:49 Docusate Sodium (Colace) 100 mg BID PO Last administered on 10/09/16 08:56; Admin Dose 100 MG; Start 10/07/16 at 09:00 Senna (Senokot) 1 tab HS PO Last administered on 10/08/16 21:01; Admin Dose 1 TAB; Start 10/07/16 at 21:00 Bisacodyl (Dulcolax Supp) 10 mg DAILY PRN [place] CONSTIPATION; Start 10/07/16 at 03 :00 Magnesium Hydroxide (Milk Of Mag) 30 ml BID PRN PO CONSTIPATION; Start at 03:00 Non-Formulary Medication 1 ea HS PO ; Start 10/07/16 at 21:00; Status UNV Miscellaneous Information (*Order Clarification Bulletin) NEUDEXTA IS NON FORMULARY ITEM...PLE... Q8H XX ; Start 10/07/16 at 07:30 Diagnostic Test (Pha) (Accucheck) 1 ea 02 XX ; Start 10/08/16 at 02:00 Mupirocin (Bactroban) 1 applic BID TOP Last administered on 10/09/16 12:41; Admin Dose 1 APPLIC; Start 10/08/16 at 21:00 Assessment/Plan Additional Assessment/Plan Rehab- Acute on chronic toxic metabolic encephalopathy; h.o CVA; h.o. VPS Progressing with rehab program Dysphagia with G-tube placement- good po intake. Will pursue dc of Gtube Gout Urinary tract infection. Acute on chronic kidney injury. Hypertension. Hyperlipidemia. Benign prostatic hypertrophy. MORGAN RANGEL MD Oct 09, 2016 13:07
[2016-10-09] MEDS: SOD CHLORIDE 0.45% 1,000 ML IV SCH ×2 (14:19→20:54)
--- NOTE | 2016-10-09 18:45 | PN ---
Date/Time of Note Date/Time of Note DATE: 10/09/16 TIME: 18:45 Assessment/Plan VTE Prophylaxis VTE Prophylaxis Intervention: SCD's Lines/Catheters IV [facility]from [facility] [place] Urinary Cath still in place: Yes Reason Cath still needed: urinary retention Assessment/Plan Chief Complaint/Hosp Course ASSESSMENT AND PLAN: 1. Acute encephalopathy, resolved. 2. Urinary tract infection with cultures positive for Klebsiella pneumoniae and Providencia stuartii. Continue Rocephin. Follow up infectious disease recommendations. Dr. Cha is following in infectious disease consultation. 3. Chronic kidney disease stage III/IV. Continue to monitor BUN and creatinine. Avoid nephrotoxic medication. 4. Diabetes mellitus. Continue NovoLog per sliding scale. 5. Hypertension. Continue Norvasc and Lopressor. 7. Hyperlipidemia. Continue Lipitor. 8. Gout. Continue patient on allopurinol, colchicine and Uloric. 9. History of intracranial hemorrhage and history of ventriculoperitoneal shunt. 10. Chronic Potter catheter. 11. 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 Continue heparin for deep venous thrombosis prophylaxis. Further recommendations based on clinical course. Plan of care discussed with Dr. Cartagena. Problems: Subjective 24 Hr Interval Summary Free Text/Dictation Patient denies any fever nausea vomiting tolerates diet well. Exam/Review of Systems Vital Signs Vitals Vital Signs Date Time Temp Pulse Resp B/P Pulse Ox O2 Delivery O2 Flow Rate FiO2 10/09/16 07:30 98.0 52 18 115/72 96 10/08/16 08:00 Room Air Intake and Output 10/08/16 10/08/16 10/09/16 15:00 23:00 07:00 Intake Total 1050 ml 860 ml 1850 ml Output Total 1400 ml Balance -350 ml 860 ml 1850 ml Exam GENERAL: Well-developed, well-nourished gentleman. No acute distress. HEENT: Head is atraumatic, normocephalic. Pupils equally round, reactive to light and accommodation. NECK: Supple. No cervical lymphadenopathy, no thyromegaly. CHEST: Lungs clear bilaterally. There are no rhonchi, wheezes, rales noted. CARDIOVASCULAR: Normal S1, S2. No murmurs, gallops, clicks, rubs noted. ABDOMEN: Round, soft, nondistended, nontender. Bowel sounds present. The patient has a G-tube with intact stoma. EXTREMITIES: No edema, clubbing, cyanosis. GENITOURINARY: The patient has a Potter catheter with clear urine. SKIN: No rash, petechiae noted. NEUROLOGIC: The patient is awake, alert and oriented x3. Results Result Diagram: 10/07/16 0544 10/07/16 0544 Results 24 hrs Laboratory Tests Test 10/08/16 20:59 10/09/16 07:40 10/09/16 11:50 10/09/16 17:31 Bedside Glucose 123 84 105 103 Medications Medications Current Medications Ondansetron HCl (Zofran Inj) 4 mg Q6H PRN IV NAUSEA AND/OR VOMITING; Start at 20:49 Oxycodone/ Acetaminophen (Percocet (5/ 325)) 1 tab Q6H PRN PO PAIN; Start 10/06 at 20:49 Acetaminophen (Tylenol Tab) 500 mg Q6H PRN PO PAIN AND OR ELEVATED TEMP; Start 10/06/16 at 20:49 Allopurinol (Zyloprim) 100 mg DAILY PO Last administered on 10/09/16 08:57; Admin Dose 100 MG; Start 10/06/16 at 20:49 Amlodipine Besylate (Norvasc) 5 mg DAILY PO Last administered on 10/09/16 09:06 ; Admin Dose 5 MG; Start 10/06/16 at 20:49 Eye Lubricant (Artificial Tears Oph) 2 drop QID BOTH EYES Last administered on 10/09/16 18:29; Admin Dose 2 DROP; Start 10/06/16 at 20:49 Atorvastatin Calcium (Lipitor) 10 mg QHS PO Last administered on 10/08/16 21: 01; Admin Dose 10 MG; Start 10/06/16 at 20:49 Febuxostat (Uloric) 40 mg DAILY PO Last administered on 10/09/16 08:56; Admin Dose 40 MG; Start 10/06/16 at 20:49 Lactobacillus Acidoph/Bulgaricus (Floranex) 1 tab TID PO Last administered on 14:18; Admin Dose 1 TAB; Start 10/06/16 at 20:49 Metoprolol Tartrate (Lopressor) 100 mg BID PO Last administered on 10/09/16 09: 06; Admin Dose 100 MG; Start 10/06/16 at 20:49 Nystatin (Nystatin Susp) 5 ml TID PO Last administered on 10/09/16 14:18; Admin Dose 5 ML; Start 10/06/16 at 20:49 Pantoprazole (Protonix Tab) 40 mg DAILY@06 PO Last administered on 10/09/16 06: 26; Admin Dose 40 MG; Start 10/06/16 at 20:49 Psyllium Hydrophilic Mucilloid (Metamucil) 1 pkt DAILY PO Last administered on 10/08/16 09:11; Admin Dose 1 PKT; Start 10/06/16 at 20:49 Tamsulosin HCl (Flomax) 0.4 mg DAILY PO Last administered on 10/09/16 08:56; Admin Dose 0.4 MG; Start 10/06/16 at 20:49 Miscellaneous Information 1 ea NOTE XX ; Start 10/06/16 at 20:49 Glucose (Glutose) 15 gm Q15M PRN PO DECREASED GLUCOSE; Start 10/06/16 at 20:49 Glucose (Glutose) 22.5 gm Q15M PRN PO DECREASED GLUCOSE; Start 10/06/16 at 20: 49 Dextrose (D50w Syringe) 25 ml Q15M PRN IV DECREASED GLUCOSE; Start 10/06/16 at 20:49 Dextrose (D50w Syringe) 50 ml Q15M PRN IV DECREASED GLUCOSE; Start 10/06/16 at 20:49 Glucagon (Glucagen) 1 mg Q15M PRN IM DECREASED GLUCOSE; Start 10/06/16 at 20:49 Glucose (Glutose) 15 gm Q15M PRN BUCCAL DECREASED GLUCOSE; Start 10/06/16 at 20 :49 Colchicine (Colchicine) 0.6 mg DAILY PO Last administered on 10/09/16 08:57; Admin Dose 0.6 MG; Start 10/06/16 at 20:49 Ascorbic Acid (Vitamin C) 500 mg DAILY PO Last administered on 10/09/16 08:56; Admin Dose 500 MG; Start 10/06/16 at 20:49 Clonidine (Catapres) 0.1 mg Q12H PRN PO SBP ABOVE 160; Start 10/06/16 at 20:49 Colchicine (Colchicine) 0.6 mg DAILY PRN PO gout; Start 10/06/16 at 20:49 Ferrous Sulfate (Ferrous Sulfate (Ec)) 325 mg DAILY PO Last administered on 10/09 08:56; Admin Dose 325 MG; Start 10/06/16 at 20:49 Hydralazine HCl (Apresoline) 25 mg Q8H PRN PO SPB ABOVE 160; Start 10/06/16 at 20:49 Acetaminophen/ Hydrocodone Bitart ([place] (10/325)) 1 tab Q4H PRN PO PAIN Last administered on 10/09/16 13:03; Admin Dose 1 TAB; Start 10/06/16 at 20:49 Lactulose (Enulose) 20 gm Q8 PRN PO CONSTIPATION; Start 10/06/16 at 20:49 Heparin Sodium (Porcine) (Heparin (5000 Units/0.5 ml)) 5,000 unit Q12 SC Last administered on 10/09/16 08:58; Admin Dose 5,000 UNIT; Start 10/06/16 at 20:49 Hydromorphone HCl (Dilaudid) 0.5 mg Q4H PRN IV PAIN Last administered on 18:23; Admin Dose 0.5 MG; Start 10/06/16 at 20:49 Hydralazine HCl (Apresoline) 10 mg Q6H PRN IV if BP > 170; Start 10/06/16 at 20 :49 Quetiapine Fumarate 100 mg 100 mg QHS PO Last administered on 10/08/16 21:01; Admin Dose 100 MG; Start 10/06/16 at 20:49 Sodium Chloride (1/2 NS) 1,000 ml @ 70 mls/hr [id number] IV Last administered on 10/09/16 14:19; Admin Dose 70 MLS/HR; Start 10/06/16 at 20:49 Amlodipine Besylate (Norvasc) 10 mg DAILY PO Last administered on 10/09/16 09: 05; Admin Dose 10 MG; Start 10/06/16 at 20:49 Docusate Sodium (Colace) 100 mg BID PO Last administered on 10/09/16 08:56; Admin Dose 100 MG; Start 10/07/16 at 09:00 Senna (Senokot) 1 tab HS PO Last administered on 10/08/16 21:01; Admin Dose 1 TAB; Start 10/07/16 at 21:00 Bisacodyl (Dulcolax Supp) 10 mg DAILY PRN [place] CONSTIPATION; Start 10/07/16 at 03 :00 Magnesium Hydroxide (Milk Of Mag) 30 ml BID PRN PO CONSTIPATION; Start at 03:00 Non-Formulary Medication 1 ea HS PO ; Start 10/07/16 at 21:00; Status UNV Miscellaneous Information (*Order Clarification Bulletin) NEUDEXTA IS NON FORMULARY ITEM...PLE... Q8H XX ; Start 10/07/16 at 07:30 Diagnostic Test (Pha) (Accucheck) 1 ea 02 XX ; Start 10/08/16 at 02:00 Mupirocin (Bactroban) 1 applic BID TOP Last administered on 10/09/16t 12:41; Admin Dose 1 APPLIC; Start 10/08/16 at 21:00 MARIA ANTONIA GERMAN Oct 09, 2016 18:45
[2016-10-09 20:06] VITALS: BP 136/78; RESP 18
--- NOTE | 2016-10-09 20:09 | CONS ---
DATE OF ADMISSION: 10/06/2016 DATE OF CONSULTATION: 10/09/2016 TYPE OF CONSULTATION: Psychological. REFERRING PHYSICIAN: Morgan Hamilton MD CONSULTING PSYCHOLOGIST: Kamila Byers, PhD REASON FOR CONSULTATION: This consultation was requested by Dr. Lenin Hamilton in order to evaluate the cognitive and emotional functioning of this patient, related to his present medical condition. HISTORY OF PRESENT ILLNESS: The patient is a 66-year-old male. The patient has a history of intrac ranial hemorrhage, status post [employer] shunt placement. The patient does have numerous other medical pro blems, including type 2 diabetes, hypertension, anabolic syndrome, and kidney disease. The patient also has functional quadriplegia. The patient was cleared medically and [facility]. The patient is motivated to get better and d oes want to return to his previous level of functioning. FAMILY AND SOCIAL HISTORY: The patient lives in a house with his and daughter in [place]. Th e patient does want to return there after discharge. The patient reports that the house does not bhatia ve any stairs. MEDICATIONS: The patient is currently on Seroquel 100 mg at bedtime. SUBSTANCE USE: The patient denies any use of alcohol or other drugs. The patient reports that he d oes not smoke. MENTAL STATUS EXAMINATION APPEARANCE: The patient was seen in his wheelchair. He appeared to be of average height and weight . The patient reports that he is right-handed. The patient wears glasses. BEHAVIOR: Mainly speaks [place] and was aided in this interview with the assistance of Nellie Wallis helping did translate. The examiner also speaks some [place]. The patient did attempt to answer al l questions presented to him by the interviewer. MOOD AND AFFECT: Mood appears to be somewhat depressed. The patient's affect does appear to be jus t slightly anxious. PERCEPTION: Reports no hallucinations or delusions. The patient was alert to person, place, situat ion and time. MEMORY AND COGNITION: Were basically intact. He did know the name of the hospital. He did know wh o the vice president of finance is. He was able to say the year. He did say the month was sti ll September, but it just turned into October today. Overall, the patient's cognitive functioning give n his medical problems seems to be adequate. INTELLIGENCE: Appears to fall in the average range. INSIGHT: Fair. JUDGMENT: Fair. THOUGHT CONTENT: Is concerned about his present medical condition. The patient reports that he was walking before his stroke and now he cannot walk. The patient also states that he is anxious and d epressed because of his stroke. The patient is motivated to get better and does want to be able to function as well as he can. DISCUSSION: The patient can likely benefit from some cognitive/behavioral psychotherapy while he is on the unit. This psychotherapy would focus on his underlying level of frustration regarding his p resent medical problems. 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 Thank you very much, Dr. Lenin Hamilton, for referring this individual. Please do not hesitate to ca ll if you have additional questions. Dictated By: KAMILA BYERS PHD RK/GORGE Conf#: [id number] DID#: [id number] CC: MORGAN HAMILTON MD;*End*
[2016-10-09] MEDS: SENNA TAB PO SCH (20:54)
[2016-10-09] MEDS: ATORVASTATIN 10 MG TAB PO SCH (20:54)
[2016-10-09] MEDS: QUETIAPINE 100 MG TAB PO SCH (20:54)
[2016-10-10] MEDS: ACCUCHECK AT 2AM (Patients on SS coverage) XX SCH (02:00)
[2016-10-10] MEDS: PANTOPRAZOLE (EC) 40 MG TAB PO SCH (06:33)
[2016-10-10] MEDS: HYDROmorphONE 1 MG/ML SYG IV PRN ×3 (07:29→18:33)
[2016-10-10] MEDS: Insulin NOVOLOG SS MODERATE Algorithm (SS with meals and bedtime) SC SCH ×4 (07:35→21:00)
[2016-10-10 08:00] VITALS: BP 120/66; PULSE 65; RESP 18
[2016-10-10] MEDS: ASCORBIC ACID 500 MG TAB PO SCH ×2 (08:46→09:12)
[2016-10-10] MEDS: DOCUSATE SODIUM 100 MG CAP PO SCH ×2 (08:46→21:30)
[2016-10-10] MEDS: LACTOBACILLUS CHEW TAB PO SCH ×3 (08:46→21:30)
[2016-10-10] MEDS: COLCHICINE 0.6 MG TAB PO SCH (08:46)
[2016-10-10] MEDS: ALLOPURINOL 100 MG TAB PO SCH ×2 (08:47→14:12)
[2016-10-10] MEDS: TAMSULOSIN (SR) 0.4 MG CAP PO SCH (08:47)
[2016-10-10] MEDS: FERROUS SULFATE (EC) 325 MG TAB PO SCH (08:47)
[2016-10-10] MEDS: HEPARIN 5,000 UNIT/0.5 ML SYG SC SCH ×2 (08:50→21:34)
[2016-10-10] MEDS: AMLODIPINE 10 MG TAB PO SCH (09:00)
[2016-10-10] MEDS: AMLODIPINE 5 MG TAB PO SCH (09:00)
[2016-10-10] MEDS: PSYLLIUM 28% PACKET PO SCH (09:00)
[2016-10-10] MEDS: FEBUXOSTAT 40 MG TABLET PO SCH (09:12)
[2016-10-10] MEDS: METOPROLOL 100 MG TAB PO SCH ×2 (09:17→21:31)
[2016-10-10] MEDS: ARTIFICIAL TEARS 15 ML OPH BOTH EYES SCH ×4 (09:18→21:46)
[2016-10-10] MEDS: MUPIROCIN 2% 22 GM OINT TOP SCH ×2 (09:18→21:32)
[2016-10-10] MEDS: NYSTATIN SUSP 5 ML CUP PO SCH ×3 (09:20→21:31)
[2016-10-10] MEDS: SOD CHLORIDE 0.45% 1,000 ML IV SCH (10:37)
--- NOTE | 2016-10-10 12:17 | CONS ---
Date/Time of Note Date/Time of Note DATE: 10/10/16 TIME: 12:16 Consult Date/Type/Reason Admit Date/Time Oct 06, 2016 at 19:58 Subjective Comfortable Objective ulm-cta abd-soft amb with PT Vital Signs Date Time Temp Pulse Resp B/P Pulse Ox O2 Delivery O2 Flow Rate FiO2 10/09/16 20:06 97.6 64 18 136/78 98 10/08/16 08:00 Room Air Intake and Output 10/09/16 10/09/16 10/10/16 15:00 23:00 07:00 Intake Total 2320 ml 1130 ml Output Total 2000 ml Balance 320 ml 1130 ml Results/Medications Result Diagram: 10/07/16 0544 10/07/16 0544 Results 24 hrs Laboratory Tests Test 10/09/16 17:31 10/09/16 20:51 10/10/16 07:58 Bedside Glucose 103 110 96 Medications Current Medications Ondansetron HCl (Zofran Inj) 4 mg Q6H PRN IV NAUSEA AND/OR VOMITING; Start at 20:49 Oxycodone/ Acetaminophen (Percocet (5/ 325)) 1 tab Q6H PRN PO PAIN; Start 10/06 at 20:49 Acetaminophen (Tylenol Tab) 500 mg Q6H PRN PO PAIN AND OR ELEVATED TEMP; Start 10/06/16 at 20:49 Allopurinol (Zyloprim) 100 mg DAILY PO Last administered on 10/10/16 08:47; Admin Dose 100 MG; Start 10/06/16 at 20:49 Amlodipine Besylate (Norvasc) 5 mg DAILY PO Last administered on 10/09/16 09:06 ; Admin Dose 5 MG; Start 10/06/16 at 20:49 Eye Lubricant (Artificial Tears Oph) 2 drop QID BOTH EYES Last administered on 10/10/16 09:18; Admin Dose 2 DROP; Start 10/06/16 at 20:49 Atorvastatin Calcium (Lipitor) 10 mg QHS PO Last administered on 10/09/16 20:54 ; Admin Dose 10 MG; Start 10/06/16 at 20:49 Febuxostat (Uloric) 40 mg DAILY PO Last administered on 10/10/16 09:12; Admin Dose 40 MG; Start 10/06/16 at 20:49 Lactobacillus Acidoph/Bulgaricus (Floranex) 1 tab TID PO Last administered on 08:46; Admin Dose 1 TAB; Start 10/06/16 at 20:49 Metoprolol Tartrate (Lopressor) 100 mg BID PO Last administered on 10/10/16 09: 17; Admin Dose 100 MG; Start 10/06/16 at 20:49 Nystatin (Nystatin Susp) 5 ml TID PO Last administered on 10/10/16 09:20; Admin Dose 5 ML; Start 10/06/16 at 20:49 Pantoprazole (Protonix Tab) 40 mg DAILY@06 PO Last administered on 10/10/16 06: 33; Admin Dose 40 MG; Start 10/06/16 at 20:49 Psyllium Hydrophilic Mucilloid (Metamucil) 1 pkt DAILY PO Last administered on 10/08/16 09:11; Admin Dose 1 PKT; Start 10/06/16 at 20:49 Tamsulosin HCl (Flomax) 0.4 mg DAILY PO Last administered on 10/10/16 08:47; Admin Dose 0.4 MG; Start 10/06/16 at 20:49 Miscellaneous Information 1 ea NOTE XX ; Start 10/06/16 at 20:49 Glucose (Glutose) 15 gm Q15M PRN PO DECREASED GLUCOSE; Start 10/06/16 at 20:49 Glucose (Glutose) 22.5 gm Q15M PRN PO DECREASED GLUCOSE; Start 10/06/16 at 20: 49 Dextrose (D50w Syringe) 25 ml Q15M PRN IV DECREASED GLUCOSE; Start 10/06/16 at 20:49 Dextrose (D50w Syringe) 50 ml Q15M PRN IV DECREASED GLUCOSE; Start 10/06/16 at 20:49 Glucagon (Glucagen) 1 mg Q15M PRN IM DECREASED GLUCOSE; Start 10/06/16 at 20:49 Glucose (Glutose) 15 gm Q15M PRN BUCCAL DECREASED GLUCOSE; Start 10/06/16 at 20 :49 Colchicine (Colchicine) 0.6 mg DAILY PO Last administered on 10/10/16 08:46; Admin Dose 0.6 MG; Start 10/06/16 at 20:49 Ascorbic Acid (Vitamin C) 500 mg DAILY PO Last administered on 10/10/16 09:12; Admin Dose 500 MG; Start 10/06/16 at 20:49 Clonidine (Catapres) 0.1 mg Q12H PRN PO SBP ABOVE 160; Start 10/06/16 at 20:49 Colchicine (Colchicine) 0.6 mg DAILY PRN PO gout; Start 10/06/16 at 20:49 Ferrous Sulfate (Ferrous Sulfate (Ec)) 325 mg DAILY PO Last administered on 10/10 08:47; Admin Dose 325 MG; Start 10/06/16 at 20:49 Hydralazine HCl (Apresoline) 25 mg Q8H PRN PO SPB ABOVE 160; Start 10/06/16 at 20:49 Acetaminophen/ Hydrocodone Bitart ([place] (10)) 1 tab Q4H PRN PO PAIN Last administered on 10/09/16 13:03; Admin Dose 1 TAB; Start 10/06/16 at 20:49 Lactulose (Enulose) 20 gm Q8 PRN PO CONSTIPATION; Start 10/06/16 at 20:49 Heparin Sodium (Porcine) (Heparin (5000 Units/0.5 ml)) 5,000 unit Q12 SC Last administered on 10/10/16 08:50; Admin Dose 5,000 UNIT; Start 10/06/16 at 20:49 Hydromorphone HCl (Dilaudid) 0.5 mg Q4H PRN IV PAIN Last administered on 11:34; Admin Dose 0.5 MG; Start 10/06/16 at 20:49 Hydralazine HCl (Apresoline) 10 mg Q6H PRN IV if BP > 170; Start 10/06/16 at 20 :49 Quetiapine Fumarate 100 mg 100 mg QHS PO Last administered on 10/09/16 20:54; Admin Dose 100 MG; Start 10/06/16 at 20:49 Sodium Chloride (1/2 NS) 1,000 ml @ 70 mls/hr [id number] IV Last administered on 10/09/16 20:54; Admin Dose 70 MLS/HR; Start 10/06/16 at 20:49 Amlodipine Besylate (Norvasc) 10 mg DAILY PO Last administered on 10/09/16 09: 05; Admin Dose 10 MG; Start 10/06/16 at 20:49 Docusate Sodium (Colace) 100 mg BID PO Last administered on 10/10/16 08:46; Admin Dose 100 MG; Start 10/07/16 at 09:00 Senna (Senokot) 1 tab HS PO Last administered on 10/09/16 20:54; Admin Dose 1 TAB; Start 10/07/16 at 21:00 Bisacodyl (Dulcolax Supp) 10 mg DAILY PRN [place] CONSTIPATION; Start 10/07/16 at 03 :00 Magnesium Hydroxide (Milk Of Mag) 30 ml BID PRN PO CONSTIPATION; Start at 03:00 Non-Formulary Medication 1 ea HS PO ; Start 10/07/16 at 21:00; Status UNV Miscellaneous Information (*Order Clarification Bulletin) NEUDEXTA IS NON FORMULARY ITEM...PLE... Q8H XX ; Start 10/07/16 at 07:30 Diagnostic Test (Pha) (Accucheck) 1 ea 02 XX ; Start 10/08/16 at 02:00 Mupirocin (Bactroban) 1 applic BID TOP Last administered on 10/10/16 09:18; Admin Dose 1 APPLIC; Start 10/08/16 at 21:00 Assessment/Plan Additional Assessment/Plan Rehab- Acute on chronic toxic metabolic encephalopathy; h.o CVA; h.o. VPS Continue rehab treatment plan Dysphagia with G-tube placement- good po intake, family now requesting to keep tube in until outpatient follow up Gout Urinary tract infection. Acute on chronic kidney injury. Hypertension. Hyperlipidemia. Benign prostatic hypertrophy. MORGAN RANGEL MD Oct 10, 2016 12:17
[2016-10-10] MEDS ORDERED: HYDROmorphONE 1 MG/ML SYG IV STA (15:07)
[2016-10-10 16:13] VITALS: BP 160/66; RESP 15
[2016-10-10 19:57] VITALS: BP 162/88; RESP 19
[2016-10-10] MEDS: ATORVASTATIN 10 MG TAB PO SCH (21:30)
[2016-10-10] MEDS: SENNA TAB PO SCH (21:30)
[2016-10-10] MEDS: QUETIAPINE 100 MG TAB PO SCH (21:30)
[2016-10-10 22:00] VITALS: BP 142/80; PULSE 80; RESP 18
[2016-10-11] MEDS: SOD CHLORIDE 0.45% 1,000 ML IV SCH (00:49)
[2016-10-11] MEDS: ACCUCHECK AT 2AM (Patients on SS coverage) XX SCH (02:00)
[2016-10-11] MEDS: PANTOPRAZOLE (EC) 40 MG TAB PO SCH (06:46)
[2016-10-11] MEDS: HYDROmorphONE 1 MG/ML SYG IV PRN (06:51)
[2016-10-11] MEDS: Insulin NOVOLOG SS MODERATE Algorithm (SS with meals and bedtime) SC SCH ×4 (07:35→20:31)
[2016-10-11] MEDS: DOCUSATE SODIUM 100 MG CAP PO SCH ×2 (08:33→20:21)
[2016-10-11] MEDS: FERROUS SULFATE (EC) 325 MG TAB PO SCH (08:33)
[2016-10-11] MEDS: ARTIFICIAL TEARS 15 ML OPH BOTH EYES SCH ×4 (08:33→20:21)
[2016-10-11] MEDS: METOPROLOL 100 MG TAB PO SCH ×2 (08:34→20:23)
[2016-10-11] MEDS: LACTOBACILLUS CHEW TAB PO SCH ×3 (08:34→20:21)
[2016-10-11] MEDS: TAMSULOSIN (SR) 0.4 MG CAP PO SCH (08:34)
[2016-10-11] MEDS: FEBUXOSTAT 40 MG TABLET PO SCH (08:35)
[2016-10-11] MEDS: AMLODIPINE 5 MG TAB PO SCH (08:35)
[2016-10-11] MEDS: NYSTATIN SUSP 5 ML CUP PO SCH ×3 (08:35→20:23)
[2016-10-11] MEDS: MUPIROCIN 2% 22 GM OINT TOP SCH ×2 (08:36→21:41)
[2016-10-11] MEDS: AMLODIPINE 10 MG TAB PO SCH (08:37)
[2016-10-11] MEDS: COLCHICINE 0.6 MG TAB PO SCH (08:38)
[2016-10-11] MEDS: PSYLLIUM 28% PACKET PO SCH (08:39)
[2016-10-11] MEDS: HEPARIN 5,000 UNIT/0.5 ML SYG SC SCH ×2 (08:40→20:25)
[2016-10-11 09:43] VITALS: BP 118/68; RESP 20
--- NOTE | 2016-10-11 11:16 | CONS ---
Date/Time of Note Date/Time of Note DATE: 10/11/16 TIME: 11:12 Consult Date/Type/Reason Admit Date/Time Oct 06, 2016 at 19:58 Subjective Overall improved Objective pulm-cta abd-soft mod/min ambulation Vital Signs Date Time Temp Pulse Resp B/P Pulse Ox O2 Delivery O2 Flow Rate FiO2 10/11/16 09:43 98.5 56 20 118/68 100 10/10/16 22:00 Room Air Intake and Output 10/10/16 10/10/16 10/11/16 14:59 22:59 06:59 Intake Total 2200 ml 1300 ml Output Total 1650 ml 2000 ml 1800 ml Balance -1650 ml 200 ml -500 ml Results/Medications Result Diagram: 10/07/16 0544 10/07/16 0544 Results 24 hrs Laboratory Tests Test 10/10/16 12:16 10/10/16 17:50 10/10/16 20:28 10/11/16 07:41 Bedside Glucose 113 106 127 100 Medications Current Medications Ondansetron HCl (Zofran Inj) 4 mg Q6H PRN IV NAUSEA AND/OR VOMITING; Start at 20:49 Oxycodone/ Acetaminophen (Percocet (5/ 325)) 1 tab Q6H PRN PO PAIN; Start 10/06 at 20:49 Acetaminophen (Tylenol Tab) 500 mg Q6H PRN PO PAIN AND OR ELEVATED TEMP; Start 10/06/16 at 20:49 Allopurinol (Zyloprim) 100 mg DAILY PO Last administered on 10/10/16 14:12; Admin Dose 100 MG; Start 10/06/16 at 20:49 Amlodipine Besylate (Norvasc) 5 mg DAILY PO Last administered on 10/11/16 08:35 ; Admin Dose 5 MG; Start 10/06/16 at 20:49 Eye Lubricant (Artificial Tears Oph) 2 drop QID BOTH EYES Last administered on 10/11/16 08:33; Admin Dose 2 DROP; Start 10/06/16 at 20:49 Atorvastatin Calcium (Lipitor) 10 mg QHS PO Last administered on 10/10/16 21:30 ; Admin Dose 10 MG; Start 10/06/16 at 20:49 Febuxostat (Uloric) 40 mg DAILY PO Last administered on 10/11/16 08:35; Admin Dose 40 MG; Start 10/06/16 at 20:49 Lactobacillus Acidoph/Bulgaricus (Floranex) 1 tab TID PO Last administered on 08:34; Admin Dose 1 TAB; Start 10/06/16 at 20:49 Metoprolol Tartrate (Lopressor) 100 mg BID PO Last administered on 10/11/16 08: 34; Admin Dose 100 MG; Start 10/06/16 at 20:49 Nystatin (Nystatin Susp) 5 ml TID PO Last administered on 10/11/16 08:35; Admin Dose 5 ML; Start 10/06/16 at 20:49 Pantoprazole (Protonix Tab) 40 mg DAILY@06 PO Last administered on 10/11/16 06: 46; Admin Dose 40 MG; Start 10/06/16 at 20:49 Psyllium Hydrophilic Mucilloid (Metamucil) 1 pkt DAILY PO Last administered on 10/11/16 08:39; Admin Dose 1 PKT; Start 10/06/16 at 20:49 Tamsulosin HCl (Flomax) 0.4 mg DAILY PO Last administered on 10/11/16 08:34; Admin Dose 0.4 MG; Start 10/06/16 at 20:49 Miscellaneous Information 1 ea NOTE XX ; Start 10/06/16 at 20:49 Glucose (Glutose) 15 gm Q15M PRN PO DECREASED GLUCOSE; Start 10/06/16 at 20:49 Glucose (Glutose) 22.5 gm Q15M PRN PO DECREASED GLUCOSE; Start 10/06/16 at 20: 49 Dextrose (D50w Syringe) 25 ml Q15M PRN IV DECREASED GLUCOSE; Start 10/06/16 at 20:49 Dextrose (D50w Syringe) 50 ml Q15M PRN IV DECREASED GLUCOSE; Start 10/06/16 at 20:49 Glucagon (Glucagen) 1 mg Q15M PRN IM DECREASED GLUCOSE; Start 10/06/16 at 20:49 Glucose (Glutose) 15 gm Q15M PRN BUCCAL DECREASED GLUCOSE; Start 10/06/16 at 20 :49 Colchicine (Colchicine) 0.6 mg DAILY PO Last administered on 10/11/16 08:38; Admin Dose 0.6 MG; Start 10/06/16 at 20:49 Ascorbic Acid (Vitamin C) 500 mg DAILY PO Last administered on 10/10/16 09:12; Admin Dose 500 MG; Start 10/06/16 at 20:49 Clonidine (Catapres) 0.1 mg Q12H PRN PO SBP ABOVE 160; Start 10/06/16 at 20:49 Colchicine (Colchicine) 0.6 mg DAILY PRN PO gout; Start 10/06/16 at 20:49 Ferrous Sulfate (Ferrous Sulfate (Ec)) 325 mg DAILY PO Last administered on 10/11 08:33; Admin Dose 325 MG; Start 10/06/16 at 20:49 Hydralazine HCl (Apresoline) 25 mg Q8H PRN PO SPB ABOVE 160; Start 10/06/16 at 20:49 Acetaminophen/ Hydrocodone Bitart ([place] (10325)) 1 tab Q4H PRN PO PAIN Last administered on 10/09/16 13:03; Admin Dose 1 TAB; Start 10/06/16 at 20:49 Lactulose (Enulose) 20 gm Q8 PRN PO CONSTIPATION; Start 10/06/16 at 20:49 Heparin Sodium (Porcine) (Heparin (5000 Units/0.5 ml)) 5,000 unit Q12 SC Last administered on 10/11/16 08:40; Admin Dose 5,000 UNIT; Start 10/06/16 at 20:49 Hydralazine HCl (Apresoline) 10 mg Q6H PRN IV if BP > 170; Start 10/06/16 at 20 :49 Quetiapine Fumarate 100 mg 100 mg QHS PO Last administered on 10/10/16 21:30; Admin Dose 100 MG; Start 10/06/16 at 20:49 Sodium Chloride (1/2 NS) 1,000 ml @ 70 mls/hr [id number] IV Last administered on 10/11/16 00:49; Admin Dose 70 MLS/HR; Start 10/06/16 at 20:49 Amlodipine Besylate (Norvasc) 10 mg DAILY PO Last administered on 10/11/16 08: 37; Admin Dose 10 MG; Start 10/06/16 at 20:49 Docusate Sodium (Colace) 100 mg BID PO Last administered on 10/11/16 08:33; Admin Dose 100 MG; Start 10/07/16 at 09:00 Senna (Senokot) 1 tab HS PO Last administered on 10/10/16 21:30; Admin Dose 1 TAB; Start 10/07/16 at 21:00 Bisacodyl (Dulcolax Supp) 10 mg DAILY PRN [place] CONSTIPATION; Start 10/07/16 at 03 :00 Magnesium Hydroxide (Milk Of Mag) 30 ml BID PRN PO CONSTIPATION; Start at 03:00 Diagnostic Test (Pha) (Accucheck) 1 ea 02 XX ; Start 10/08/16 at 02:00 Mupirocin (Bactroban) 1 applic BID TOP Last administered on 10/11/16 08:36; Admin Dose 1 APPLIC; Start 10/08/16 at 21:00 Hydromorphone HCl (Dilaudid) 0.5 mg Q3 PRN IV PAIN Last administered on 06:51; Admin Dose 0.5 MG; Start 10/10/16 at 18:00 Assessment/Plan Additional Assessment/Plan Rehab- Acute on chronic toxic metabolic encephalopathy; h.o CVA; h.o. VPS Progressing overall with rehab program, continue current therapies Dysphagia with G-tube placement- good po intake, family now requesting to keep tube in until outpatient follow up Gout Urinary tract infection. Acute on chronic kidney injury. Hypertension. Hyperlipidemia. Benign prostatic hypertrophy. MORGAN RANGEL MD Oct 11, 2016 11:16
[2016-10-11] MEDS: ALLOPURINOL 100 MG TAB PO SCH (12:57)
--- NOTE | 2016-10-11 18:12 | PN ---
Date/Time of Note Date/Time of Note DATE: 10/11/16 TIME: 18:09 Assessment/Plan VTE Prophylaxis VTE Prophylaxis Intervention: SCD's Lines/Catheters IV Catheter Type (from Nrs): Peripheral IV Central line still needed: Yes Urinary Cath still in place: Yes Reason Cath still needed: urinary retention Assessment/Plan Chief Complaint/Hosp Course ASSESSMENT AND PLAN: 1. Acute encephalopathy, resolved. 2. Urinary tract infection with cultures positive for Klebsiella pneumoniae and Providencia stuartii, s/p treatment. 3. Chronic kidney disease stage III/IV. Continue to monitor BUN and creatinine. Avoid nephrotoxic medication. 4. Diabetes mellitus. Continue NovoLog per sliding scale. 5. Hypertension. Continue Norvasc and Lopressor. 7. Hyperlipidemia. Continue Lipitor. 8. Gout. Continue patient on allopurinol, colchicine and Uloric. 9. History of intracranial hemorrhage and history of ventriculoperitoneal shunt. 10. Chronic Potter catheter. 11. 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 Continue heparin for deep venous thrombosis prophylaxis. Further recommendations based on clinical course. Plan of care discussed with Dr. Cartagena. Problems: Subjective 24 Hr Interval Summary Free Text/Dictation Patient denies any nausea vomiting, continues to work with physical therapy. Exam/Review of Systems Vital Signs Vitals Vital Signs Date Time Temp Pulse Resp B/P Pulse Ox O2 Delivery O2 Flow Rate FiO2 10/11/16 09:43 98.5 56 20 118/68 100 10/10/16 22:00 Room Air Intake and Output 10/10/16 10/10/16 10/11/16 15:00 23:00 07:00 Intake Total 2200 ml 1300 ml Output Total 1650 ml 2000 ml 1800 ml Balance -1650 ml 200 ml -500 ml Exam GENERAL: Well-developed, well-nourished gentleman. No acute distress. HEENT: Head is atraumatic, normocephalic. Pupils equally round, reactive to light and accommodation. NECK: Supple. No cervical lymphadenopathy, no thyromegaly. CHEST: Lungs clear bilaterally. There are no rhonchi, wheezes, rales noted. CARDIOVASCULAR: Normal S1, S2. No murmurs, gallops, clicks, rubs noted. ABDOMEN: Round, soft, nondistended, nontender. Bowel sounds present. The patient has a G-tube with intact stoma. EXTREMITIES: No edema, clubbing, cyanosis. GENITOURINARY: The patient has a Potter catheter with clear urine. SKIN: No rash, petechiae noted. NEUROLOGIC: The patient is awake, alert and oriented x3. Results Result Diagram: 10/07/16 0544 10/07/16 0544 Results 24 hrs Laboratory Tests Test 10/10/16 20:28 10/11/16 07:41 10/11/16 11:42 10/11/16 17:28 Bedside Glucose 127 100 123 96 Medications Medications Current Medications Ondansetron HCl (Zofran Inj) 4 mg Q6H PRN IV NAUSEA AND/OR VOMITING; Start at 20:49 Oxycodone/ Acetaminophen (Percocet (5/ 325)) 1 tab Q6H PRN PO PAIN; Start 10/06 at 20:49 Acetaminophen (Tylenol Tab) 500 mg Q6H PRN PO PAIN AND OR ELEVATED TEMP; Start 10/06/16 at 20:49 Allopurinol (Zyloprim) 100 mg DAILY PO Last administered on 10/11/16 12:57; Admin Dose 100 MG; Start 10/06/16 at 20:49 Amlodipine Besylate (Norvasc) 5 mg DAILY PO Last administered on 10/11/16 08:35 ; Admin Dose 5 MG; Start 10/06/16 at 20:49 Eye Lubricant (Artificial Tears Oph) 2 drop QID BOTH EYES Last administered on 10/11/16 17:46; Admin Dose 2 DROP; Start 10/06/16 at 20:49 Atorvastatin Calcium (Lipitor) 10 mg QHS PO Last administered on 10/10/16 21:30 ; Admin Dose 10 MG; Start 10/06/16 at 20:49 Febuxostat (Uloric) 40 mg DAILY PO Last administered on 10/11/16 08:35; Admin Dose 40 MG; Start 10/06/16 at 20:49 Lactobacillus Acidoph/Bulgaricus (Floranex) 1 tab TID PO Last administered on 12:53; Admin Dose 1 TAB; Start 10/06/16 at 20:49 Metoprolol Tartrate (Lopressor) 100 mg BID PO Last administered on 10/11/16 08: 34; Admin Dose 100 MG; Start 10/06/16 at 20:49 Nystatin (Nystatin Susp) 5 ml TID PO Last administered on 10/11/16 12:52; Admin Dose 5 ML; Start 10/06/16 at 20:49 Pantoprazole (Protonix Tab) 40 mg DAILY@06 PO Last administered on 10/11/16 06: 46; Admin Dose 40 MG; Start 10/06/16 at 20:49 Psyllium Hydrophilic Mucilloid (Metamucil) 1 pkt DAILY PO Last administered on 10/11/16 08:39; Admin Dose 1 PKT; Start 10/06/16 at 20:49 Tamsulosin HCl (Flomax) 0.4 mg DAILY PO Last administered on 10/11/16 08:34; Admin Dose 0.4 MG; Start 10/06/16 at 20:49 Miscellaneous Information 1 ea NOTE XX ; Start 10/06/16 at 20:49 Glucose (Glutose) 15 gm Q15M PRN PO DECREASED GLUCOSE; Start 10/06/16 at 20:49 Glucose (Glutose) 22.5 gm Q15M PRN PO DECREASED GLUCOSE; Start 10/06/16 at 20: 49 Dextrose (D50w Syringe) 25 ml Q15M PRN IV DECREASED GLUCOSE; Start 10/06/16 at 20:49 Dextrose (D50w Syringe) 50 ml Q15M PRN IV DECREASED GLUCOSE; Start 10/06/16 at 20:49 Glucagon (Glucagen) 1 mg Q15M PRN IM DECREASED GLUCOSE; Start 10/06/16 at 20:49 Glucose (Glutose) 15 gm Q15M PRN BUCCAL DECREASED GLUCOSE; Start 10/06/16 at 20 :49 Colchicine (Colchicine) 0.6 mg DAILY PO Last administered on 10/11/16 08:38; Admin Dose 0.6 MG; Start 10/06/16 at 20:49 Ascorbic Acid (Vitamin C) 500 mg DAILY PO Last administered on 10/10/16 09:12; Admin Dose 500 MG; Start 10/06/16 at 20:49 Clonidine (Catapres) 0.1 mg Q12H PRN PO SBP ABOVE 160; Start 10/06/16 at 20:49 Colchicine (Colchicine) 0.6 mg DAILY PRN PO gout; Start 10/06/16 at 20:49 Ferrous Sulfate (Ferrous Sulfate (Ec)) 325 mg DAILY PO Last administered on 10/11 08:33; Admin Dose 325 MG; Start 10/06/16 at 20:49 Hydralazine HCl (Apresoline) 25 mg Q8H PRN PO SPB ABOVE 160; Start 10/06/16 at 20:49 Acetaminophen/ Hydrocodone Bitart ([place] (10/325)) 1 tab Q4H PRN PO PAIN Last administered on 10/09/16 13:03; Admin Dose 1 TAB; Start 10/06/16 at 20:49 Lactulose (Enulose) 20 gm Q8 PRN PO CONSTIPATION; Start 10/06/16 at 20:49 Heparin Sodium (Porcine) (Heparin (5000 Units/0.5 ml)) 5,000 unit Q12 SC Last administered on 10/11/16 08:40; Admin Dose 5,000 UNIT; Start 10/06/16 at 20:49 Hydralazine HCl (Apresoline) 10 mg Q6H PRN IV if BP > 170; Start 10/06/16 at 20 :49 Quetiapine Fumarate (Seroquel) 100 mg QHS PO Last administered on 10/10/16 21: 30; Admin Dose 100 MG; Start 10/06/16 at 20:49 Amlodipine Besylate (Norvasc) 10 mg DAILY PO Last administered on 10/11/16 08: 37; Admin Dose 10 MG; Start 10/06/16 at 20:49 Docusate Sodium (Colace) 100 mg BID PO Last administered on 10/11/16 08:33; Admin Dose 100 MG; Start 10/07/16 at 09:00 Senna (Senokot) 1 tab HS PO Last administered on 10/10/16 21:30; Admin Dose 1 TAB; Start 10/07/16 at 21:00 Bisacodyl (Dulcolax Supp) 10 mg DAILY PRN [place] CONSTIPATION; Start 10/07/16 at 03 :00 Magnesium Hydroxide (Milk Of Mag) 30 ml BID PRN PO CONSTIPATION; Start at 03:00 Diagnostic Test (Pha) (Accucheck) 1 ea 02 XX ; Start 10/08/16 at 02:00 Mupirocin (Bactroban) 1 applic BID TOP Last administered on 10/11/16 08:36; Admin Dose 1 APPLIC; Start 10/08/16 at 21:00 Hydromorphone HCl (Dilaudid) 0.5 mg Q3 PRN IV PAIN Last administered on 06:51; Admin Dose 0.5 MG; Start 10/10/16 at 18:00 MARIA ANTONIA GERMAN Oct 11, 2016 18:12
[2016-10-11] MEDS: SENNA TAB PO SCH (20:21)
[2016-10-11] MEDS: ATORVASTATIN 10 MG TAB PO SCH (20:23)
[2016-10-11] MEDS: QUETIAPINE 100 MG TAB PO SCH (20:23)
[2016-10-11 21:05] VITALS: BP 138/77; RESP 19
[2016-10-11] MEDS: INSULIN GLARGINE [LANtus] 3 ML PEN SC SCH (21:59)
[2016-10-12] MEDS: ACCUCHECK AT 2AM (Patients on SS coverage) XX SCH (02:07)
--- NOTE | 2016-10-12 06:12 | CONS ---
DATE OF ADMISSION: 10/06/2016 DATE OF CONSULTATION: 10/11/2016 REQUESTING PHYSICIAN: Hoang Cartagena MD Dear Dr. Cartagena: Thank you for asking me to see this patient in urological consultation. HISTORY OF PRESENT ILLNESS: This is a 66-year-old male who was initially admitted to [facility] because of altered mental status. He was found to have urinary tract infecti on and was treated and then transferred to the rehab because he has encephalopathy. The patient has had multiple medical problems in the past that include a history of hypertension, previous cerebrov ascular accident. He has had the G-tube that is now closed, history of gout, chronic kidney disease secondary to diabetes and hypertension, history of craniotomy and ventriculoperitoneal shunt. The patient also has had urinary retention since October of 2015 and has had an indwelling Potter catheter. Attempt to remove the Potter catheter and see if he voids on his own was not successful; therefore, the patient still has the Potter catheter. Also, the patient apparently was going to have a suprapu bic tube placed, but since he became sick here, he did not make it to the appointment that he had wa s his urologist to have the suprapubic tube. Therefore, a urological consultation was requested. I did call the patient's daughter on the phone and talked to her, as well as the patient and his , who was at his bedside, and basically discussed with them the benefit of the suprapubic tube, but also the possible risks and complication from the suprapubic tube and that patient could still have some incontinence by the urine leaking around the suprapubic tube. PAST MEDICAL HISTORY: As mentioned above with the hypertension, the cerebrovascular accident, chron ic kidney disease, diabetes, gout, hyperlipidemia and a history of the craniotomy. SOCIAL HISTORY: He does not smoke, does not drink alcohol, and there is no history of drug abuse. He does have a history of kidney stones, however. MEDICATIONS: He is presently on include: 1. Pain medication with Dilaudid p.r.n. 2. Bactroban b.i.d. 3. He is on Accu-Chek. 4. Senokot: 5. Insulin. 6. Colace. 7. Dulcolax suppository 8. Milk of Magnesia. 9. Zofran p.r.n. 10. Percocet p.r.n. 11. Tylenol p.r.n. 12. Allopurinol 100 mg a day. 13. Norvasc 5 mg daily. 14. Eyedrops. 15. Atorvastatin 10 mg daily. 16. Uloric 40 mg daily. 17. Albuterol. 18. Ipratropium p.r.n. 19. Lactobacillus 1 tablet 3 times a day. 20. Lopressor 100 mg twice a day. 21. Nystatin liquid 5 mL 3 times a day. 22. Protonix 40 mg daily. 23. Metamucil 1 packet daily. 24. Tamsulosin 0.4 mg daily. 25. Colchicine 0.6 mg daily. 26. Ascorbic acid 500 mg p.o. daily. 27. Clonidine 0.1 mg p.r.n. 28. Hydralazine 25 mg p.r.n. 29. Ferrous sulfate 325 mg daily. 30. Seroquel 100 mg at bedtime daily. 31. Norvasc 10 mg daily. PHYSICAL EXAMINATION: GENERAL: This is an elderly male. He is awake and alert. He does not remember every part of his h istory. The daughter is the one who helps in his medical history. He weighs about 71 kilograms. H e is 65 inches tall. VITAL SIGNS: Temperature is 98.5, pulse is 56, respiration 20, blood pressure 118/68. NECK: Supple and there is no cervical adenopathy. LUNGS: The patient does not have any wheezing. ABDOMEN: He does have the G-tube in place, but it is closed and not being used. Abdomen otherwise is soft. EXTERNAL GENITALIA: Both testes are in the scrotum and are normal. Penis: He does have an indwell ing Potter catheter that is draining clear urine. EXTREMITIES: He has gout on his knee. He has had knee surgery before. RECTAL: Examination revealed soft, a little firm prostate. LABORATORY DATA: His CBC shows a white count of 7.0, hemoglobin 11.9, hematocrit 35.2. The BUN is 32, creatinine 2.33. Electrolytes are normal. The urinalysis was negative, and the urine culture done on 10/06/2016 is no growth after 48 hours. IMPRESSION 1. History of urinary retention and this could be secondary to his diabetes as well as to his probl ems with the history of cerebrovascular accident and the craniotomy. 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 The patient is bothered by Potter catheter and his urologist, Dr. Alberts's plan was to put the suprapubic tube. Therefore, the plan here is first U will repeat the urine culture and make sure t hat there is no infection. Second, I talked to his daughter, as well as to his , who was at [facility], and the patient, himself, about doing the suprapubic tube. It is not urgent and they could als o go and have Dr. Alberts do it after his discharge or I could do it while he is in the hospital he re. For now we will just check urine culture. Then, if we are to do the suprapubic tube, will try to do it early next week. Dictated By: FELIX ROY/GORGE Conf#: [id number] DID#: [id number]
[2016-10-12] MEDS: PANTOPRAZOLE (EC) 40 MG TAB PO SCH (06:43)
[2016-10-12 07:30] VITALS: BP 136/79; RESP 18
[2016-10-12] MEDS: Insulin NOVOLOG SS MODERATE Algorithm (SS with meals and bedtime) SC SCH ×4 (07:35→20:59)
[2016-10-12] MEDS: HYDROmorphONE 1 MG/ML SYG IV PRN ×5 (07:51→21:00)
[2016-10-12] MEDS: INSULIN ASPART [NOVOLOG] 3 ML PEN SC SCH ×3 (08:15→18:01)
[2016-10-12] MEDS: HEPARIN 5,000 UNIT/0.5 ML SYG SC SCH ×2 (08:16→20:58)
[2016-10-12] MEDS: AMLODIPINE 5 MG TAB PO SCH (08:16)
[2016-10-12] MEDS: TAMSULOSIN (SR) 0.4 MG CAP PO SCH (08:16)
[2016-10-12] MEDS: LACTOBACILLUS CHEW TAB PO SCH ×3 (08:16→20:55)
[2016-10-12] MEDS: DOCUSATE SODIUM 100 MG CAP PO SCH ×2 (08:16→20:55)
[2016-10-12] MEDS: FERROUS SULFATE (EC) 325 MG TAB PO SCH (08:17)
[2016-10-12] MEDS: ASCORBIC ACID 500 MG TAB PO SCH (08:17)
[2016-10-12] MEDS: ALLOPURINOL 100 MG TAB PO SCH (08:17)
[2016-10-12] MEDS: AMLODIPINE 10 MG TAB PO SCH (08:17)
[2016-10-12] MEDS: MUPIROCIN 2% 22 GM OINT TOP SCH ×2 (08:18→21:00)
[2016-10-12] MEDS: NYSTATIN SUSP 5 ML CUP PO SCH ×3 (09:00→20:55)
--- NOTE | 2016-10-12 09:44 | CONS ---
Date/Time of Note Date/Time of Note DATE: 10/12/16 TIME: 09:44 Consult Date/Type/Reason Admit Date/Time Oct 06, 2016 at 19:58 Subjective Doing well, no complaints Objective pulm-cta abd-soft min/mod transfer Vital Signs Date Time Temp Pulse Resp B/P Pulse Ox O2 Delivery O2 Flow Rate FiO2 10/12/16 07:30 98.2 60 18 136/79 99 10/10/16 22:00 Room Air Intake and Output 10/11/16 10/11/16 10/12/16 15:00 23:00 07:00 Intake Total 1340 ml 380 ml Output Total 1200 ml Balance 140 ml 380 ml Results/Medications Results 24 hrs Laboratory Tests Test 10/11/16 11:42 10/11/16 17:28 10/11/16 20:15 10/11/16 20:26 Bedside Glucose 123 96 376 H Prostate Specific Antigen 1.9 Test 10/12/16 07:23 Bedside Glucose 78 Medications Current Medications Ondansetron HCl (Zofran Inj) 4 mg Q6H PRN IV NAUSEA AND/OR VOMITING; Start at 20:49 Oxycodone/ Acetaminophen (Percocet (5/ 325)) 1 tab Q6H PRN PO PAIN; Start 10/06 at 20:49 Acetaminophen (Tylenol Tab) 500 mg Q6H PRN PO PAIN AND OR ELEVATED TEMP; Start 10/06/16 at 20:49 Allopurinol (Zyloprim) 100 mg DAILY PO Last administered on 10/12/16 08:17; Admin Dose 100 MG; Start 10/06/16 at 20:49 Amlodipine Besylate (Norvasc) 5 mg DAILY PO Last administered on 10/12/16 08:16 ; Admin Dose 5 MG; Start 10/06/16 at 20:49 Eye Lubricant (Artificial Tears Oph) 2 drop QID BOTH EYES Last administered on 10/11/16 20:21; Admin Dose 2 DROP; Start 10/06/16 at 20:49 Atorvastatin Calcium (Lipitor) 10 mg QHS PO Last administered on 10/11/16 20:23 ; Admin Dose 10 MG; Start 10/06/16 at 20:49 Febuxostat (Uloric) 40 mg DAILY PO Last administered on 10/11/16 08:35; Admin Dose 40 MG; Start 10/06/16 at 20:49 Lactobacillus Acidoph/Bulgaricus (Floranex) 1 tab TID PO Last administered on 08:16; Admin Dose 1 TAB; Start 10/06/16 at 20:49 Metoprolol Tartrate (Lopressor) 100 mg BID PO Last administered on 10/11/16 20: 23; Admin Dose 100 MG; Start 10/06/16 at 20:49 Nystatin (Nystatin Susp) 5 ml TID PO Last administered on 10/11/16 20:23; Admin Dose 5 ML; Start 10/06/16 at 20:49 Pantoprazole (Protonix Tab) 40 mg DAILY@06 PO Last administered on 10/12/16 06: 43; Admin Dose 40 MG; Start 10/06/16 at 20:49 Psyllium Hydrophilic Mucilloid (Metamucil) 1 pkt DAILY PO Last administered on 10/11/16 08:39; Admin Dose 1 PKT; Start 10/06/16 at 20:49 Tamsulosin HCl (Flomax) 0.4 mg DAILY PO Last administered on 10/12/16 08:16; Admin Dose 0.4 MG; Start 10/06/16 at 20:49 Miscellaneous Information 1 ea NOTE XX ; Start 10/06/16 at 20:49 Glucose (Glutose) 15 gm Q15M PRN PO DECREASED GLUCOSE; Start 10/06/16 at 20:49 Glucose (Glutose) 22.5 gm Q15M PRN PO DECREASED GLUCOSE; Start 10/06/16 at 20: 49 Dextrose (D50w Syringe) 25 ml Q15M PRN IV DECREASED GLUCOSE; Start 10/06/16 at 20:49 Dextrose (D50w Syringe) 50 ml Q15M PRN IV DECREASED GLUCOSE; Start 10/06/16 at 20:49 Glucagon (Glucagen) 1 mg Q15M PRN IM DECREASED GLUCOSE; Start 10/06/16 at 20:49 Glucose (Glutose) 15 gm Q15M PRN BUCCAL DECREASED GLUCOSE; Start 10/06/16 at 20 :49 Colchicine (Colchicine) 0.6 mg DAILY PO Last administered on 10/11/16 08:38; Admin Dose 0.6 MG; Start 10/06/16 at 20:49 Ascorbic Acid (Vitamin C) 500 mg DAILY PO Last administered on 10/12/16 08:17; Admin Dose 500 MG; Start 10/06/16 at 20:49 Clonidine (Catapres) 0.1 mg Q12H PRN PO SBP ABOVE 160; Start 10/06/16 at 20:49 Colchicine (Colchicine) 0.6 mg DAILY PRN PO gout; Start 10/06/16 at 20:49 Ferrous Sulfate (Ferrous Sulfate (Ec)) 325 mg DAILY PO Last administered on 10/12 08:17; Admin Dose 325 MG; Start 10/06/16 at 20:49 Hydralazine HCl (Apresoline) 25 mg Q8H PRN PO SPB ABOVE 160; Start 10/06/16 at 20:49 Acetaminophen/ Hydrocodone Bitart ([place] (10)) 1 tab Q4H PRN PO PAIN Last administered on 10/09/16 13:03; Admin Dose 1 TAB; Start 10/06/16 at 20:49 Lactulose (Enulose) 20 gm Q8 PRN PO CONSTIPATION; Start 10/06/16 at 20:49 Heparin Sodium (Porcine) (Heparin (5000 Units/0.5 ml)) 5,000 unit Q12 SC Last administered on 10/12/16 08:16; Admin Dose 5,000 UNIT; Start 10/06/16 at 20:49 Hydralazine HCl (Apresoline) 10 mg Q6H PRN IV if BP > 170; Start 10/06/16 at 20 :49 Quetiapine Fumarate (Seroquel) 100 mg QHS PO Last administered on 10/11/16 20: 23; Admin Dose 100 MG; Start 10/06/16 at 20:49 Amlodipine Besylate (Norvasc) 10 mg DAILY PO Last administered on 10/12/16 08: 17; Admin Dose 10 MG; Start 10/06/16 at 20:49 Docusate Sodium (Colace) 100 mg BID PO Last administered on 10/12/16 08:16; Admin Dose 100 MG; Start 10/07/16 at 09:00 Senna (Senokot) 1 tab HS PO Last administered on 10/11/16 20:21; Admin Dose 1 TAB; Start 10/07/16 at 21:00 Bisacodyl (Dulcolax Supp) 10 mg DAILY PRN [place] CONSTIPATION; Start 10/07/16 at 03 :00 Magnesium Hydroxide (Milk Of Mag) 30 ml BID PRN PO CONSTIPATION; Start at 03:00 Diagnostic Test (Pha) (Accucheck) 1 ea 02 XX Last administered on 10/12/16 02: 07; Admin Dose 1 EA; Start 10/08/16 at 02:00 Mupirocin (Bactroban) 1 applic BID TOP Last administered on 10/12/16 08:18; Admin Dose 1 APPLIC; Start 10/08/16 at 21:00 Hydromorphone HCl (Dilaudid) 0.5 mg Q3 PRN IV PAIN Last administered on 07:51; Admin Dose 0.5 MG; Start 10/10/16 at 18:00 Insulin Glargine (Lantus) 10 unit DAILY@20 SC Last administered on 10/11/16 21: 59; Admin Dose 10 UNIT; Start 10/11/16 at 22:00 Assessment/Plan Additional Assessment/Plan Rehab- acute enceph/h.o. CVA Progressing with rehab GI- gtube in place. Patient meeting nutritional needs by mouth, family requesting that Gtube be removed as outpatient -f/b urology A/CKI HTN BPH Hyperlipidemia MORGAN RANGEL MD Oct 12, 2016 09:44
[2016-10-12] MEDS: FEBUXOSTAT 40 MG TABLET PO SCH (11:06)
[2016-10-12] MEDS: COLCHICINE 0.6 MG TAB PO SCH (11:07)
[2016-10-12] MEDS: ARTIFICIAL TEARS 15 ML OPH BOTH EYES SCH ×4 (11:07→20:55)
[2016-10-12] MEDS: PSYLLIUM 28% PACKET PO SCH (11:07)
[2016-10-12] MEDS: METOPROLOL 100 MG TAB PO SCH ×2 (11:17→20:56)
--- NOTE | 2016-10-12 11:48 | PN ---
Date/Time of Note Date/Time of Note DATE: 10/12/16 TIME: 11:47 Assessment/Plan VTE Prophylaxis VTE Prophylaxis Intervention: other Lines/Catheters IV Catheter Type (from Nrsg): [place] Lock Urinary Cath still in place: Yes Reason Cath still needed: skin wounds contaminated by urine Assessment/Plan Chief Complaint/Hosp Course 1. Acute encephalopathy, resolved. 2. Urinary tract infection with cultures positive for Klebsiella pneumoniae and Providencia stuartii, s/p treatment. 3. Chronic kidney disease stage III/IV. Continue to monitor BUN and creatinine. Avoid nephrotoxic medication. 4. Diabetes mellitus. Continue NovoLog per sliding scale. 5. Hypertension. Continue Norvasc and Lopressor. 7. Hyperlipidemia. Continue Lipitor. 8. Gout. Continue patient on allopurinol, colchicine and Uloric. 9. History of intracranial hemorrhage and history of ventriculoperitoneal shunt. 10. Chronic Potter catheter. 11. 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 Problems: Subjective 24 Hr Interval Summary Free Text/Dictation Patient is not in room, unable to interview Exam/Review of Systems Vital Signs Vitals Vital Signs Date Time Temp Pulse Resp B/P Pulse Ox O2 Delivery O2 Flow Rate FiO2 10/12/16 07:30 98.2 60 18 136/79 99 10/10/16 22:00 Room Air Intake and Output 10/11/16 10/11/16 10/12/16 15:00 23:00 07:00 Intake Total 1340 ml 380 ml Output Total 1200 ml Balance 140 ml 380 ml Exam Patient is not in room, unable to examine Results Results 24 hrs Laboratory Tests Test 10/11/16 17:28 10/11/16 20:15 10/11/16 20:26 10/12/16 07:23 Bedside Glucose 96 376 H 78 Prostate Specific Antigen 1.9 Medications Medications Current Medications Ondansetron HCl (Zofran Inj) 4 mg Q6H PRN IV NAUSEA AND/OR VOMITING; Start at 20:49 Oxycodone/ Acetaminophen (Percocet (5/ 325)) 1 tab Q6H PRN PO PAIN; Start 10/06 at 20:49 Acetaminophen (Tylenol Tab) 500 mg Q6H PRN PO PAIN AND OR ELEVATED TEMP; Start 10/06/16 at 20:49 Allopurinol (Zyloprim) 100 mg DAILY PO Last administered on 10/12/16 08:17; Admin Dose 100 MG; Start 10/06/16 at 20:49 Amlodipine Besylate (Norvasc) 5 mg DAILY PO Last administered on 10/12/16 08:16 ; Admin Dose 5 MG; Start 10/06/16 at 20:49 Eye Lubricant (Artificial Tears Oph) 2 drop QID BOTH EYES Last administered on 10/12/16 11:07; Admin Dose 2 DROP; Start 10/06/16 at 20:49 Atorvastatin Calcium (Lipitor) 10 mg QHS PO Last administered on 10/11/16 20:23 ; Admin Dose 10 MG; Start 10/06/16 at 20:49 Febuxostat (Uloric) 40 mg DAILY PO Last administered on 10/12/16 11:06; Admin Dose 40 MG; Start 10/06/16 at 20:49 Lactobacillus Acidoph/Bulgaricus (Floranex) 1 tab TID PO Last administered on 08:16; Admin Dose 1 TAB; Start 10/06/16 at 20:49 Metoprolol Tartrate (Lopressor) 100 mg BID PO Last administered on 10/12/16 11: 17; Admin Dose 100 MG; Start 10/06/16 at 20:49 Nystatin (Nystatin Susp) 5 ml TID PO Last administered on 10/12/16 09:00; Admin Dose 5 ML; Start 10/06/16 at 20:49 Pantoprazole (Protonix Tab) 40 mg DAILY@06 PO Last administered on 10/12/16 06: 43; Admin Dose 40 MG; Start 10/06/16 at 20:49 Psyllium Hydrophilic Mucilloid (Metamucil) 1 pkt DAILY PO Last administered on 10/12/16 11:07; Admin Dose 1 PKT; Start 10/06/16 at 20:49 Tamsulosin HCl (Flomax) 0.4 mg DAILY PO Last administered on 10/12/16 08:16; Admin Dose 0.4 MG; Start 10/06/16 at 20:49 Miscellaneous Information 1 ea NOTE XX ; Start 10/06/16 at 20:49 Glucose (Glutose) 15 gm Q15M PRN PO DECREASED GLUCOSE; Start 10/06/16 at 20:49 Glucose (Glutose) 22.5 gm Q15M PRN PO DECREASED GLUCOSE; Start 10/06/16 at 20: 49 Dextrose (D50w Syringe) 25 ml Q15M PRN IV DECREASED GLUCOSE; Start 10/06/16 at 20:49 Dextrose (D50w Syringe) 50 ml Q15M PRN IV DECREASED GLUCOSE; Start 10/06/16 at 20:49 Glucagon (Glucagen) 1 mg Q15M PRN IM DECREASED GLUCOSE; Start 10/06/16 at 20:49 Glucose (Glutose) 15 gm Q15M PRN BUCCAL DECREASED GLUCOSE; Start 10/06/16 at 20 :49 Colchicine (Colchicine) 0.6 mg DAILY PO Last administered on 10/12/16 11:07; Admin Dose 0.6 MG; Start 10/06/16 at 20:49 Ascorbic Acid (Vitamin C) 500 mg DAILY PO Last administered on 10/12/16 08:17; Admin Dose 500 MG; Start 10/06/16 at 20:49 Clonidine (Catapres) 0.1 mg Q12H PRN PO SBP ABOVE 160; Start 10/06/16 at 20:49 Colchicine (Colchicine) 0.6 mg DAILY PRN PO gout; Start 10/06/16 at 20:49 Ferrous Sulfate (Ferrous Sulfate (Ec)) 325 mg DAILY PO Last administered on 10/12 08:17; Admin Dose 325 MG; Start 10/06/16 at 20:49 Hydralazine HCl (Apresoline) 25 mg Q8H PRN PO SPB ABOVE 160; Start 10/06/16 at 20:49 Acetaminophen/ Hydrocodone Bitart ([place] (10/325)) 1 tab Q4H PRN PO PAIN Last administered on 10/09/16 13:03; Admin Dose 1 TAB; Start 10/06/16 at 20:49 Lactulose (Enulose) 20 gm Q8 PRN PO CONSTIPATION; Start 10/06/16 at 20:49 Heparin Sodium (Porcine) (Heparin (5000 Units/0.5 ml)) 5,000 unit Q12 SC Last administered on 10/12/16 08:16; Admin Dose 5,000 UNIT; Start 10/06/16 at 20:49 Hydralazine HCl (Apresoline) 10 mg Q6H PRN IV if BP > 170; Start 10/06/16 at 20 :49 Quetiapine Fumarate (Seroquel) 100 mg QHS PO Last administered on 10/11/16 20: 23; Admin Dose 100 MG; Start 10/06/16 at 20:49 Amlodipine Besylate (Norvasc) 10 mg DAILY PO Last administered on 10/12/16 08: 17; Admin Dose 10 MG; Start 10/06/16 at 20:49 Docusate Sodium (Colace) 100 mg BID PO Last administered on 10/12/16 08:16; Admin Dose 100 MG; Start 10/07/16 at 09:00 Senna (Senokot) 1 tab HS PO Last administered on 10/11/16 20:21; Admin Dose 1 TAB; Start 10/07/16 at 21:00 Bisacodyl (Dulcolax Supp) 10 mg DAILY PRN [place] CONSTIPATION; Start 10/07/16 at 03 :00 Magnesium Hydroxide (Milk Of Mag) 30 ml BID PRN PO CONSTIPATION; Start at 03:00 Diagnostic Test (Pha) (Accucheck) 1 ea 02 XX Last administered on 10/12/16 02: 07; Admin Dose 1 EA; Start 10/08/16 at 02:00 Mupirocin (Bactroban) 1 applic BID TOP Last administered on 10/12/16 08:18; Admin Dose 1 APPLIC; Start 10/08/16 at 21:00 Hydromorphone HCl (Dilaudid) 0.5 mg Q3 PRN IV PAIN Last administered on 11:03; Admin Dose 0.5 MG; Start 10/10/16 at 18:00 Insulin Glargine (Lantus) 10 unit DAILY@20 SC Last administered on 10/11/16 21: 59; Admin Dose 10 UNIT; Start 10/11/16 at 22:00 DONNA COLEMAN Oct 12, 2016 11:48
[2016-10-12 19:50] VITALS: BP 117/65; RESP 18
[2016-10-12] MEDS: QUETIAPINE 100 MG TAB PO SCH (20:55)
[2016-10-12] MEDS: ATORVASTATIN 10 MG TAB PO SCH (20:55)
[2016-10-12] MEDS: SENNA TAB PO SCH (20:55)
[2016-10-12] MEDS: INSULIN GLARGINE [LANtus] 3 ML PEN SC SCH (20:58)
[2016-10-13] MEDS: ACCUCHECK AT 2AM (Patients on SS coverage) XX SCH (02:00)
[2016-10-13] MEDS: PANTOPRAZOLE (EC) 40 MG TAB PO SCH (06:36)
[2016-10-13] MEDS: HYDROmorphONE 1 MG/ML SYG IV PRN ×2 (06:40→20:34)
[2016-10-13] MEDS: Insulin NOVOLOG SS MODERATE Algorithm (SS with meals and bedtime) SC SCH ×4 (07:35→20:36)
[2016-10-13] MEDS: INSULIN ASPART [NOVOLOG] 3 ML PEN SC SCH ×3 (07:59→17:44)
[2016-10-13 08:00] VITALS: BP 119/67; PULSE 71; RESP 18
[2016-10-13] MEDS: ARTIFICIAL TEARS 15 ML OPH BOTH EYES SCH ×4 (09:38→20:36)
[2016-10-13] MEDS: MUPIROCIN 2% 22 GM OINT TOP SCH ×2 (09:38→20:37)
[2016-10-13] MEDS: NYSTATIN SUSP 5 ML CUP PO SCH ×3 (09:39→20:33)
[2016-10-13] MEDS: DOCUSATE SODIUM 100 MG CAP PO SCH ×2 (09:39→20:33)
[2016-10-13] MEDS: FEBUXOSTAT 40 MG TABLET PO SCH (09:39)
[2016-10-13] MEDS: AMLODIPINE 10 MG TAB PO SCH (09:39)
[2016-10-13] MEDS: FERROUS SULFATE (EC) 325 MG TAB PO SCH (09:39)
[2016-10-13] MEDS: ALLOPURINOL 100 MG TAB PO SCH (09:39)
[2016-10-13] MEDS: LACTOBACILLUS CHEW TAB PO SCH ×3 (09:39→20:32)
[2016-10-13] MEDS: COLCHICINE 0.6 MG TAB PO SCH (09:39)
[2016-10-13] MEDS: TAMSULOSIN (SR) 0.4 MG CAP PO SCH (09:40)
[2016-10-13] MEDS: AMLODIPINE 5 MG TAB PO SCH (09:40)
[2016-10-13] MEDS: ASCORBIC ACID 500 MG TAB PO SCH (09:40)
[2016-10-13] MEDS: PSYLLIUM 28% PACKET PO SCH (09:41)
[2016-10-13] MEDS: METOPROLOL 100 MG TAB PO SCH ×2 (09:41→20:33)
[2016-10-13] MEDS: HEPARIN 5,000 UNIT/0.5 ML SYG SC SCH ×2 (09:42→20:36)
--- NOTE | 2016-10-13 12:54 | PN ---
Date/Time of Note Date/Time of Note DATE: 10/13/16 TIME: 12:53 Assessment/Plan VTE Prophylaxis VTE Prophylaxis Intervention: other Lines/Catheters IV Catheter Type (from Nrsg): Saline Lock Urinary Cath still in place: Yes Reason Cath still needed: skin wounds contaminated by urine Assessment/Plan Chief Complaint/Hosp Course 1. Acute encephalopathy, resolved. 2. Urinary tract infection with cultures positive for Klebsiella pneumoniae and Providencia stuartii, s/p treatment. 3. Chronic kidney disease stage III/IV. Continue to monitor BUN and creatinine. Avoid nephrotoxic medication. 4. Diabetes mellitus. Continue NovoLog per sliding scale. 5. Hypertension. Continue Norvasc and Lopressor. 7. Hyperlipidemia. Continue Lipitor. 8. Gout. Continue patient on allopurinol, colchicine and Uloric. 9. History of intracranial hemorrhage and history of ventriculoperitoneal shunt. 10. Chronic Potter catheter. 11. 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 Problems: Subjective 24 Hr Interval Summary Free Text/Dictation Patient is doing well, cooperative with therapy Exam/Review of Systems Vital Signs Vitals Vital Signs Date Time Temp Pulse Resp B/P Pulse Ox O2 Delivery O2 Flow Rate FiO2 10/13/16 08:00 99.2 71 18 119/67 95 Room Air Intake and Output 10/12/16 10/12/16 10/13/16 15:00 23:00 07:00 Intake Total 850 ml 1320 ml 360 ml Output Total 1500 ml Balance 850 ml -180 ml 360 ml Exam Constitutional: well developed Head: atraumatic, normocephalic Neck: supple Respiratory: clear to auscultation Cardiovascular: regular rate and rhythm Gastrointestinal: non-tender, soft Results Results 24 hrs Laboratory Tests Test 10/12/16 17:00 10/12/16 20:42 10/13/16 07:41 10/13/16 12:01 Bedside Glucose 110 133 116 173 Medications Medications Current Medications Ondansetron HCl (Zofran Inj) 4 mg Q6H PRN IV NAUSEA AND/OR VOMITING; Start at 20:49 Oxycodone/ Acetaminophen (Percocet (5/ 325)) 1 tab Q6H PRN PO PAIN; Start 10/06 at 20:49 Acetaminophen (Tylenol Tab) 500 mg Q6H PRN PO PAIN AND OR ELEVATED TEMP; Start 10/06/16 at 20:49 Allopurinol (Zyloprim) 100 mg DAILY PO Last administered on 10/13/16 09:39; Admin Dose 100 MG; Start 10/06/16 at 20:49 Amlodipine Besylate (Norvasc) 5 mg DAILY PO Last administered on 10/13/16 09:40 ; Admin Dose 5 MG; Start 10/06/16 at 20:49 Eye Lubricant (Artificial Tears Oph) 2 drop QID BOTH EYES Last administered on 10/13/16 12:27; Admin Dose 2 DROP; Start 10/06/16 at 20:49 Atorvastatin Calcium (Lipitor) 10 mg QHS PO Last administered on 10/12/16 20:55 ; Admin Dose 10 MG; Start 10/06/16 at 20:49 Febuxostat (Uloric) 40 mg DAILY PO Last administered on 10/13/16 09:39; Admin Dose 40 MG; Start 10/06/16 at 20:49 Lactobacillus Acidoph/Bulgaricus (Floranex) 1 tab TID PO Last administered on 12:26; Admin Dose 1 TAB; Start 10/06/16 at 20:49 Metoprolol Tartrate (Lopressor) 100 mg BID PO Last administered on 10/13/16 09: 41; Admin Dose 100 MG; Start 10/06/16 at 20:49 Nystatin (Nystatin Susp) 5 ml TID PO Last administered on 10/13/16 12:26; Admin Dose 5 ML; Start 10/06/16 at 20:49 Pantoprazole (Protonix Tab) 40 mg DAILY@06 PO Last administered on 10/13/16 06: 36; Admin Dose 40 MG; Start 10/06/16 at 20:49 Psyllium Hydrophilic Mucilloid (Metamucil) 1 pkt DAILY PO Last administered on 10/13/16 09:41; Admin Dose 1 PKT; Start 10/06/16 at 20:49 Tamsulosin HCl (Flomax) 0.4 mg DAILY PO Last administered on 10/13/16 09:40; Admin Dose 0.4 MG; Start 10/06/16 at 20:49 Miscellaneous Information 1 ea NOTE XX ; Start 10/06/16 at 20:49 Glucose (Glutose) 15 gm Q15M PRN PO DECREASED GLUCOSE; Start 10/06/16 at 20:49 Glucose (Glutose) 22.5 gm Q15M PRN PO DECREASED GLUCOSE; Start 10/06/16 at 20: 49 Dextrose (D50w Syringe) 25 ml Q15M PRN IV DECREASED GLUCOSE; Start 10/06/16 at 20:49 Dextrose (D50w Syringe) 50 ml Q15M PRN IV DECREASED GLUCOSE; Start 10/06/16 at 20:49 Glucagon (Glucagen) 1 mg Q15M PRN IM DECREASED GLUCOSE; Start 10/06/16 at 20:49 Glucose (Glutose) 15 gm Q15M PRN BUCCAL DECREASED GLUCOSE; Start 10/06/16 at 20 :49 Colchicine (Colchicine) 0.6 mg DAILY PO Last administered on 10/13/16 09:39; Admin Dose 0.6 MG; Start 10/06/16 at 20:49 Ascorbic Acid (Vitamin C) 500 mg DAILY PO Last administered on 10/13/16 09:40; Admin Dose 500 MG; Start 10/06/16 at 20:49 Clonidine (Catapres) 0.1 mg Q12H PRN PO SBP ABOVE 160; Start 10/06/16 at 20:49 Colchicine (Colchicine) 0.6 mg DAILY PRN PO gout; Start 10/06/16 at 20:49 Ferrous Sulfate (Ferrous Sulfate (Ec)) 325 mg DAILY PO Last administered on 10/13 09:39; Admin Dose 325 MG; Start 10/06/16 at 20:49 Hydralazine HCl (Apresoline) 25 mg Q8H PRN PO SPB ABOVE 160; Start 10/06/16 at 20:49 Acetaminophen/ Hydrocodone Bitart ([place] (10/325)) 1 tab Q4H PRN PO PAIN Last administered on 10/09/16 13:03; Admin Dose 1 TAB; Start 10/06/16 at 20:49 Lactulose (Enulose) 20 gm Q8 PRN PO CONSTIPATION; Start 10/06/16 at 20:49 Heparin Sodium (Porcine) (Heparin (5000 Units/0.5 ml)) 5,000 unit Q12 SC Last administered on 10/13/16 09:42; Admin Dose 5,000 UNIT; Start 10/06/16 at 20:49 Hydralazine HCl (Apresoline) 10 mg Q6H PRN IV if BP > 170; Start 10/06/16 at 20 :49 Quetiapine Fumarate (Seroquel) 100 mg QHS PO Last administered on 10/12/16 20: 55; Admin Dose 100 MG; Start 10/06/16 at 20:49 Amlodipine Besylate (Norvasc) 10 mg DAILY PO Last administered on 10/13/16 09: 39; Admin Dose 10 MG; Start 10/06/16 at 20:49 Docusate Sodium (Colace) 100 mg BID PO Last administered on 10/13/16 09:39; Admin Dose 100 MG; Start 10/07/16 at 09:00 Senna (Senokot) 1 tab HS PO Last administered on 10/12/16 20:55; Admin Dose 1 TAB; Start 10/07/16 at 21:00 Bisacodyl (Dulcolax Supp) 10 mg DAILY PRN [place] CONSTIPATION; Start 10/07/16 at 03 :00 Magnesium Hydroxide (Milk Of Mag) 30 ml BID PRN PO CONSTIPATION; Start at 03:00 Diagnostic Test (Pha) (Accucheck) 1 ea 02 XX Last administered on 10/12/16 02: 07; Admin Dose 1 EA; Start 10/08/16 at 02:00 Mupirocin (Bactroban) 1 applic BID TOP Last administered on 10/13/16 09:38; Admin Dose 1 APPLIC; Start 10/08/16 at 21:00 Hydromorphone HCl (Dilaudid) 0.5 mg Q3 PRN IV PAIN Last administered on 06:40; Admin Dose 0.5 MG; Start 10/10/16 at 18:00 Insulin Glargine (Lantus) 10 unit DAILY@20 SC Last administered on 10/12/16 20: 58; Admin Dose 10 UNIT; Start 10/11/16 at 22:00 DONNA COLEMAN Y Oct 13, 2016 12:54
--- NOTE | 2016-10-13 16:28 | PN ---
DATE: 10/13/2016 SUBJECTIVE: Urinary retention, neurogenic bladder. Prior attempts to remove the Potter catheter wer e not successful. The patient has had a Potter catheter for 1 year. The patient at the present is r easonably comfortable. OBJECTIVE: VITAL SIGNS: His temperature is 99.2, blood pressure 119/6, respiration 18, pulse is 71. ABDOMEN: Soft. LABORATORY: The urine culture from 10/11/2016, no growth in 24 hours. IMPRESSION: Urinary retention. PLAN: As I discussed previously with his family, his daughter mainly, and the patient himself, and I also did discuss it with his urologist, Dr. Alberts, the patient may benefit from a suprapubic tu be in this way, one could clamp the suprapubic tube and see if he does void and then open it to chec k his postvoid residual and should he not be able to urinate, one could open the suprapubic tube and drain his bladder. The benefits, the risks, the possible complications and the possible incontinen ce around the Potter catheter around the suprapubic tube were all discussed and that also was discuss ed that, that would not eliminate the possibility of urinary tract infection. The patient and the f dajuany understood that and they are agreeable to proceed so we will try to do it tomorrow . Dictated By: FELIX ROY/GORGE Conf#: [id number] DID#: [id number]
[2016-10-13] MEDS ORDERED: LIDOCAINE 1% (MPF) 30 ML INJ INJ PRN (17:00)
[2016-10-13 19:09] VITALS: BP 118/60; RESP 20
[2016-10-13] MEDS: QUETIAPINE 100 MG TAB PO SCH (20:32)
[2016-10-13] MEDS: ATORVASTATIN 10 MG TAB PO SCH (20:32)
[2016-10-13] MEDS: SENNA TAB PO SCH (20:32)
[2016-10-13] MEDS: INSULIN GLARGINE [LANtus] 3 ML PEN SC SCH (20:35)
[2016-10-14] MEDS: ACCUCHECK AT 2AM (Patients on SS coverage) XX SCH (02:00)
[2016-10-14] MEDS: HYDROmorphONE 1 MG/ML SYG IV PRN ×2 (05:37→14:32)
[2016-10-14] MEDS: PANTOPRAZOLE (EC) 40 MG TAB PO SCH (05:37)
[2016-10-14 07:30] VITALS: BP 128/76; RESP 18
[2016-10-14] MEDS: Insulin NOVOLOG SS MODERATE Algorithm (SS with meals and bedtime) SC SCH ×4 (07:35→20:54)
[2016-10-14] MEDS: NYSTATIN SUSP 5 ML CUP PO SCH ×3 (08:20→20:40)
[2016-10-14] MEDS: METOPROLOL 100 MG TAB PO SCH ×2 (08:21→20:41)
[2016-10-14] MEDS: AMLODIPINE 5 MG TAB PO SCH (08:21)
[2016-10-14] MEDS: PSYLLIUM 28% PACKET PO SCH (08:21)
[2016-10-14] MEDS: AMLODIPINE 10 MG TAB PO SCH (08:21)
[2016-10-14] MEDS: ASCORBIC ACID 500 MG TAB PO SCH (08:21)
[2016-10-14] MEDS: FERROUS SULFATE (EC) 325 MG TAB PO SCH (08:22)
[2016-10-14] MEDS: LACTOBACILLUS CHEW TAB PO SCH ×3 (08:22→20:40)
[2016-10-14] MEDS: DOCUSATE SODIUM 100 MG CAP PO SCH ×2 (08:22→20:40)
[2016-10-14] MEDS: TAMSULOSIN (SR) 0.4 MG CAP PO SCH (08:22)
[2016-10-14] MEDS: FEBUXOSTAT 40 MG TABLET PO SCH (08:22)
[2016-10-14] MEDS: ALLOPURINOL 100 MG TAB PO SCH (08:22)
[2016-10-14] MEDS: COLCHICINE 0.6 MG TAB PO SCH (08:22)
[2016-10-14] MEDS: HEPARIN 5,000 UNIT/0.5 ML SYG SC SCH ×2 (08:23→20:53)
[2016-10-14] MEDS: INSULIN ASPART [NOVOLOG] 3 ML PEN SC SCH ×3 (08:24→17:46)
[2016-10-14] MEDS: MUPIROCIN 2% 22 GM OINT TOP SCH ×2 (08:25→20:40)
[2016-10-14] MEDS: ARTIFICIAL TEARS 15 ML OPH BOTH EYES SCH ×4 (08:25→20:40)
--- NOTE | 2016-10-14 11:16 | PN ---
Date/Time of Note Date/Time of Note DATE: 10/14/16 TIME: 11:14 Assessment/Plan VTE Prophylaxis VTE Prophylaxis Intervention: SCD's Lines/Catheters IV [facility]from [facility] Saline Lock Urinary Cath still in place: Yes Reason Cath still needed: urinary retention Assessment/Plan Chief Complaint/Hosp Course ASSESSMENT AND PLAN: 1. Acute encephalopathy, resolved. 2. Urinary tract infection with cultures positive for Klebsiella pneumoniae and Providencia stuartii, s/p treatment. 3. Chronic kidney disease stage III/IV. Continue to monitor BUN and creatinine. Avoid nephrotoxic medication. 4. Diabetes mellitus. Continue NovoLog per sliding scale. 5. Hypertension. Continue Norvasc and Lopressor. 7. Hyperlipidemia. Continue Lipitor. 8. Gout. Continue patient on allopurinol, colchicine and Uloric. 9. History of intracranial hemorrhage and history of ventriculoperitoneal shunt. 10. Chronic Potter catheter. Pending Suprapubic catheter insertion today by Dr Fay, urology. 11. 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 Continue heparin for deep venous thrombosis prophylaxis. Further recommendations based on clinical course. Plan of care discussed with Dr. Cartagena. Problems: Subjective 24 Hr Interval Summary Free Text/Dictation Patirnt looks comfortable, denies fever, n/v, pending suprapubic cath insertion by urology. Exam/Review of Systems Vital Signs Vitals Vital Signs Date Time Temp Pulse Resp B/P Pulse Ox O2 Delivery O2 Flow Rate FiO2 10/14/16 07:30 99.2 85 18 128/76 98 10/13/16 08:00 Room Air Intake and Output 10/13/16 10/13/16 10/14/16 15:00 23:00 07:00 Intake Total 500 ml 240 ml Output Total 950 ml Balance -450 ml 240 ml Exam GENERAL: Well-developed, well-nourished gentleman. No acute distress. HEENT: Head is atraumatic, normocephalic. Pupils equally round, reactive to light and accommodation. NECK: Supple. No cervical lymphadenopathy, no thyromegaly. CHEST: Lungs clear bilaterally. There are no rhonchi, wheezes, rales noted. CARDIOVASCULAR: Normal S1, S2. No murmurs, gallops, clicks, rubs noted. ABDOMEN: Round, soft, nondistended, nontender. Bowel sounds present. The patient has a G-tube with intact stoma. EXTREMITIES: No edema, clubbing, cyanosis. GENITOURINARY: The patient has a Potter catheter with clear urine. SKIN: No rash, petechiae noted. NEUROLOGIC: The patient is awake, alert and oriented x3. Results Results 24 hrs Laboratory Tests Test 10/13/16 12:01 10/13/16 17:00 10/13/16 20:17 10/14/16 07:27 Bedside Glucose 173 135 143 85 Medications Medications Current Medications Ondansetron HCl (Zofran Inj) 4 mg Q6H PRN IV NAUSEA AND/OR VOMITING; Start at 20:49 Oxycodone/ Acetaminophen (Percocet (5/ 325)) 1 tab Q6H PRN PO PAIN; Start 10/06 at 20:49 Acetaminophen (Tylenol Tab) 500 mg Q6H PRN PO PAIN AND OR ELEVATED TEMP; Start 10/06/16 at 20:49 Allopurinol (Zyloprim) 100 mg DAILY PO Last administered on 10/14/16 08:22; Admin Dose 100 MG; Start 10/06/16 at 20:49 Amlodipine Besylate (Norvasc) 5 mg DAILY PO Last administered on 10/14/16 08:21 ; Admin Dose 5 MG; Start 10/06/16 at 20:49 Eye Lubricant (Artificial Tears Oph) 2 drop QID BOTH EYES Last administered on 10/14/16 08:25; Admin Dose 2 DROP; Start 10/06/16 at 20:49 Atorvastatin Calcium (Lipitor) 10 mg QHS PO Last administered on 10/13/16 20:32 ; Admin Dose 10 MG; Start 10/06/16 at 20:49 Febuxostat (Uloric) 40 mg DAILY PO Last administered on 10/14/16 08:22; Admin Dose 40 MG; Start 10/06/16 at 20:49 Lactobacillus Acidoph/Bulgaricus (Floranex) 1 tab TID PO Last administered on 08:22; Admin Dose 1 TAB; Start 10/06/16 at 20:49 Metoprolol Tartrate (Lopressor) 100 mg BID PO Last administered on 10/14/16 08: 21; Admin Dose 100 MG; Start 10/06/16 at 20:49 Nystatin (Nystatin Susp) 5 ml TID PO Last administered on 10/14/16 08:20; Admin Dose 5 ML; Start 10/06/16 at 20:49 Pantoprazole (Protonix Tab) 40 mg DAILY@06 PO Last administered on 10/14/16 05: 37; Admin Dose 40 MG; Start 10/06/16 at 20:49 Psyllium Hydrophilic Mucilloid (Metamucil) 1 pkt DAILY PO Last administered on 10/14/16 08:21; Admin Dose 1 PKT; Start 10/06/16 at 20:49 Tamsulosin HCl (Flomax) 0.4 mg DAILY PO Last administered on 10/14/16 08:22; Admin Dose 0.4 MG; Start 10/06/16 at 20:49 Miscellaneous Information 1 ea NOTE XX ; Start 10/06/16 at 20:49 Glucose (Glutose) 15 gm Q15M PRN PO DECREASED GLUCOSE; Start 10/06/16 at 20:49 Glucose (Glutose) 22.5 gm Q15M PRN PO DECREASED GLUCOSE; Start 10/06/16 at 20: 49 Dextrose (D50w Syringe) 25 ml Q15M PRN IV DECREASED GLUCOSE; Start 10/06/16 at 20:49 Dextrose (D50w Syringe) 50 ml Q15M PRN IV DECREASED GLUCOSE; Start 10/06/16 at 20:49 Glucagon (Glucagen) 1 mg Q15M PRN IM DECREASED GLUCOSE; Start 10/06/16 at 20:49 Glucose (Glutose) 15 gm Q15M PRN BUCCAL DECREASED GLUCOSE; Start 10/06/16 at 20 :49 Colchicine (Colchicine) 0.6 mg DAILY PO Last administered on 10/14/16 08:22; Admin Dose 0.6 MG; Start 10/06/16 at 20:49 Ascorbic Acid (Vitamin C) 500 mg DAILY PO Last administered on 10/14/16 08:21; Admin Dose 500 MG; Start 10/06/16 at 20:49 Clonidine (Catapres) 0.1 mg Q12H PRN PO SBP ABOVE 160; Start 10/06/16 at 20:49 Colchicine (Colchicine) 0.6 mg DAILY PRN PO gout; Start 10/06/16 at 20:49 Ferrous Sulfate (Ferrous Sulfate (Ec)) 325 mg DAILY PO Last administered on 10/14 08:22; Admin Dose 325 MG; Start 10/06/16 at 20:49 Hydralazine HCl (Apresoline) 25 mg Q8H PRN PO SPB ABOVE 160; Start 10/06/16 at 20:49 Acetaminophen/ Hydrocodone Bitart ([place] (10/325)) 1 tab Q4H PRN PO PAIN Last administered on 10/09/16 13:03; Admin Dose 1 TAB; Start 10/06/16 at 20:49 Lactulose (Enulose) 20 gm Q8 PRN PO CONSTIPATION; Start 10/06/16 at 20:49 Heparin Sodium (Porcine) (Heparin (5000 Units/0.5 ml)) 5,000 unit Q12 SC Last administered on 10/14/16 08:23; Admin Dose 5,000 UNIT; Start 10/06/16 at 20:49 Hydralazine HCl (Apresoline) 10 mg Q6H PRN IV if BP > 170; Start 10/06/16 at 20 :49 Quetiapine Fumarate (Seroquel) 100 mg QHS PO Last administered on 10/13/16 20: 32; Admin Dose 100 MG; Start 10/06/16 at 20:49 Amlodipine Besylate (Norvasc) 10 mg DAILY PO Last administered on 10/14/16 08: 21; Admin Dose 10 MG; Start 10/06/16 at 20:49 Docusate Sodium (Colace) 100 mg BID PO Last administered on 10/14/16 08:22; Admin Dose 100 MG; Start 10/07/16 at 09:00 Senna (Senokot) 1 tab HS PO Last administered on 10/13/16 20:32; Admin Dose 1 TAB; Start 10/07/16 at 21:00 Bisacodyl (Dulcolax Supp) 10 mg DAILY PRN [place] CONSTIPATION; Start 10/07/16 at 03 :00 Magnesium Hydroxide (Milk Of Mag) 30 ml BID PRN PO CONSTIPATION; Start at 03:00 Diagnostic Test (Pha) (Accucheck) 1 ea 02 XX Last administered on 10/12/16 02: 07; Admin Dose 1 EA; Start 10/08/16 at 02:00 Mupirocin (Bactroban) 1 applic BID TOP Last administered on 10/14/16 08:25; Admin Dose 1 APPLIC; Start 10/08/16 at 21:00 Hydromorphone HCl (Dilaudid) 0.5 mg Q3 PRN IV PAIN Last administered on 05:37; Admin Dose 0.5 MG; Start 10/10/16 at 18:00 Insulin Glargine (Lantus) 10 unit DAILY@20 SC Last administered on 10/13/16 20: 35; Admin Dose 10 UNIT; Start 10/11/16 at 22:00 MARIA ANTONIA GERMAN Oct 14, 2016 11:16
--- NOTE | 2016-10-14 11:26 | CONS ---
Date/Time of Note Date/Time of Note DATE: 10/14/16 TIME: 11:16 Consult Date/Type/Reason Admit Date/Time Oct 06, 2016 at 19:58 Objective Vital Signs Date Time Temp Pulse Resp B/P Pulse Ox O2 Delivery O2 Flow Rate FiO2 10/14/16 07:30 99.2 85 18 128/76 98 10/13/16 08:00 Room Air Intake and Output 10/13/16 10/13/16 10/14/16 15:00 23:00 07:00 Intake Total 500 ml 240 ml Output Total 950 ml Balance -450 ml 240 ml INTERDISCIPLINARY TEAM CONFERENCE BOWEL- Cont BLADDER-followed by urology SKIN- intact OT- DRESSING-min/mod BATHING-min/mod TOILETING-min/mod PT- BED MOBILITY-mod TRANSFERS-mod AMBULATION-mod SPEECH- COGNITION-min/mod DYPHAGIA-meeting nutritional needs by mouth A/P- Interdisciplinary team conference held today. Please see interdisciplinary sheet. Working toward d.c. on 10/17 with post discharge follow up of physical therapy, occupational therapy. Results/Medications Results 24 hrs Laboratory Tests Test 10/13/16 12:01 10/13/16 17:00 10/13/16 20:17 10/14/16 07:27 Bedside Glucose 173 135 143 85 Medications Current Medications Ondansetron HCl (Zofran Inj) 4 mg Q6H PRN IV NAUSEA AND/OR VOMITING; Start at 20:49 Oxycodone/ Acetaminophen (Percocet (5/ 325)) 1 tab Q6H PRN PO PAIN; Start 10/06 at 20:49 Acetaminophen (Tylenol Tab) 500 mg Q6H PRN PO PAIN AND OR ELEVATED TEMP; Start 10/06/16 at 20:49 Allopurinol (Zyloprim) 100 mg DAILY PO Last administered on 10/14/16 08:22; Admin Dose 100 MG; Start 10/06/16 at 20:49 Amlodipine Besylate (Norvasc) 5 mg DAILY PO Last administered on 10/14/16 08:21 ; Admin Dose 5 MG; Start 10/06/16 at 20:49 Eye Lubricant (Artificial Tears Oph) 2 drop QID BOTH EYES Last administered on 10/14/16 08:25; Admin Dose 2 DROP; Start 10/06/16 at 20:49 Atorvastatin Calcium (Lipitor) 10 mg QHS PO Last administered on 10/13/16 20:32 ; Admin Dose 10 MG; Start 10/06/16 at 20:49 Febuxostat (Uloric) 40 mg DAILY PO Last administered on 10/14/16 08:22; Admin Dose 40 MG; Start 10/06/16 at 20:49 Lactobacillus Acidoph/Bulgaricus (Floranex) 1 tab TID PO Last administered on 08:22; Admin Dose 1 TAB; Start 10/06/16 at 20:49 Metoprolol Tartrate (Lopressor) 100 mg BID PO Last administered on 10/14/16 08: 21; Admin Dose 100 MG; Start 10/06/16 at 20:49 Nystatin (Nystatin Susp) 5 ml TID PO Last administered on 10/14/16 08:20; Admin Dose 5 ML; Start 10/06/16 at 20:49 Pantoprazole (Protonix Tab) 40 mg DAILY@06 PO Last administered on 10/14/16 05: 37; Admin Dose 40 MG; Start 10/06/16 at 20:49 Psyllium Hydrophilic Mucilloid (Metamucil) 1 pkt DAILY PO Last administered on 10/14/16 08:21; Admin Dose 1 PKT; Start 10/06/16 at 20:49 Tamsulosin HCl (Flomax) 0.4 mg DAILY PO Last administered on 10/14/16 08:22; Admin Dose 0.4 MG; Start 10/06/16 at 20:49 Miscellaneous Information 1 ea NOTE XX ; Start 10/06/16 at 20:49 Glucose (Glutose) 15 gm Q15M PRN PO DECREASED GLUCOSE; Start 10/06/16 at 20:49 Glucose (Glutose) 22.5 gm Q15M PRN PO DECREASED GLUCOSE; Start 10/06/16 at 20: 49 Dextrose (D50w Syringe) 25 ml Q15M PRN IV DECREASED GLUCOSE; Start 10/06/16 at 20:49 Dextrose (D50w Syringe) 50 ml Q15M PRN IV DECREASED GLUCOSE; Start 10/06/16 at 20:49 Glucagon (Glucagen) 1 mg Q15M PRN IM DECREASED GLUCOSE; Start 10/06/16 at 20:49 Glucose (Glutose) 15 gm Q15M PRN BUCCAL DECREASED GLUCOSE; Start 10/06/16 at 20 :49 Colchicine (Colchicine) 0.6 mg DAILY PO Last administered on 10/14/16 08:22; Admin Dose 0.6 MG; Start 10/06/16 at 20:49 Ascorbic Acid (Vitamin C) 500 mg DAILY PO Last administered on 10/14/16 08:21; Admin Dose 500 MG; Start 10/06/16 at 20:49 Clonidine (Catapres) 0.1 mg Q12H PRN PO SBP ABOVE 160; Start 10/06/16 at 20:49 Colchicine (Colchicine) 0.6 mg DAILY PRN PO gout; Start 10/06/16 at 20:49 Ferrous Sulfate (Ferrous Sulfate (Ec)) 325 mg DAILY PO Last administered on 10/14 08:22; Admin Dose 325 MG; Start 10/06/16 at 20:49 Hydralazine HCl (Apresoline) 25 mg Q8H PRN PO SPB ABOVE 160; Start 10/06/16 at 20:49 Acetaminophen/ Hydrocodone Bitart ([place] (10/325)) 1 tab Q4H PRN PO PAIN Last administered on 10/09/16 13:03; Admin Dose 1 TAB; Start 10/06/16 at 20:49 Lactulose (Enulose) 20 gm Q8 PRN PO CONSTIPATION; Start 10/06/16 at 20:49 Heparin Sodium (Porcine) (Heparin (5000 Units/0.5 ml)) 5,000 unit Q12 SC Last administered on 10/14/16 08:23; Admin Dose 5,000 UNIT; Start 10/06/16 at 20:49 Hydralazine HCl (Apresoline) 10 mg Q6H PRN IV if BP > 170; Start 10/06/16 at 20 :49 Quetiapine Fumarate (Seroquel) 100 mg QHS PO Last administered on 10/13/16 20: 32; Admin Dose 100 MG; Start 10/06/16 at 20:49 Amlodipine Besylate (Norvasc) 10 mg DAILY PO Last administered on 10/14/16 08: 21; Admin Dose 10 MG; Start 10/06/16 at 20:49 Docusate Sodium (Colace) 100 mg BID PO Last administered on 10/14/16 08:22; Admin Dose 100 MG; Start 10/07/16 at 09:00 Senna (Senokot) 1 tab HS PO Last administered on 10/13/16 20:32; Admin Dose 1 TAB; Start 10/07/16 at 21:00 Bisacodyl (Dulcolax Supp) 10 mg DAILY PRN [place] CONSTIPATION; Start 10/07/16 at 03 :00 Magnesium Hydroxide (Milk Of Mag) 30 ml BID PRN PO CONSTIPATION; Start at 03:00 Diagnostic Test (Pha) (Accucheck) 1 ea 02 XX Last administered on 10/12/16 02: 07; Admin Dose 1 EA; Start 10/08/16 at 02:00 Mupirocin (Bactroban) 1 applic BID TOP Last administered on 10/14/16 08:25; Admin Dose 1 APPLIC; Start 10/08/16 at 21:00 Hydromorphone HCl (Dilaudid) 0.5 mg Q3 PRN IV PAIN Last administered on 05:37; Admin Dose 0.5 MG; Start 10/10/16 at 18:00 Insulin Glargine (Lantus) 10 unit DAILY@20 SC Last administered on 10/13/16 20: 35; Admin Dose 10 UNIT; Start 10/11/16 at 22:00 MORGAN RANGEL MD Oct 14, 2016 11:25
[2016-10-14] MEDS ORDERED: LIDOCAINE 1% (MPF) 30 ML INJ INJ PRN (13:00)
--- NOTE | 2016-10-14 15:24 | OPR ---
DATE OF OPERATION: 10/14/2016 PREOPERATIVE DIAGNOSIS: Neurogenic bladder, urinary retention and urethral stricture. The patient does have an indwelling Potter catheter that has been changed regularly over the past 1 year. In dis cussing with the family, they wanted him to have a suprapubic tube so that we could clamp it and see if he does urinate and easier to change for him. POSTOPERATIVE DIAGNOSIS: Neurogenic bladder, urinary retention and urethral stricture. The patient does have an indwelling Potter catheter that has been changed regularly over the past 1 year. In di scussing with the family, they wanted him to have a suprapubic tube so that we could clamp it and se e if he does urinate and easier to change for him. OPERATION PERFORMED: Insertion of a suprapubic tube. TECHNIQUE: Patient was positioned in the supine position on his bed. The Potter catheter that he bhatia d was disconnected from the drainage bag. A catheter tip 60 mL syringe was connected the catheter a nd then normal saline was put in the 60 mL catheter tip syringe and allowed to flow by gravity into the bladder. The patient was able to hold about 220 mL inside his bladder and in fact once he reach ed 180, he started having uninhibited bladder contractions trying to push the urine out through the Potter and I waited and allowed his bladder to relax again to be able to have more fluid into his jamison dder and distended further. So once he reached about 220 mL, at that moment, I clamped the Potter ca theter and then I shaved the suprapubic area and painted it with Betadine solution. Then I gave him local anesthetic with 1% lidocaine injection about 1 inch above the symphysis pubis. Then using a 22 spinal needle, I did a puncture just for direction and that went into the bladder. I aspirated t he fluid from the bladder and was water clear. Therefore, I made another incision where the needle went into the skin to allow the trocar to go in much easier. Then I used a 12-Armenian suprapubic cat heter, put it through the trocar and then did a puncture through the suprapubic tract through the coto prapubic area into the bladder. Once it went into the bladder, at that moment, I did take out the t rocar and left the Potter catheter in. Then the catheter was draining clear water urine. At that mo ment, I inflated the balloon with 10 mL of sterile water and the catheter was advanced and pulled ba ck and it moved freely. I connected to a drainage bag. Then I put a sterile dressing around the coto prapubic catheter and connected the suprapubic tube to drainage bag and then I removed the Potter cat heter so that his urine would drain through the suprapubic tube. The patient tolerated the procedur e well and there was no complication. Dictated By: FELIX ROY/GORGE Conf#: [id number] DID#: [id number]
[2016-10-14 16:17] LABS: INR 0.95; PROTIME 12.7 Sec (12.2-14.2)
[2016-10-14 16:18] LABS: PARTIAL THROMBOPLASTIN TIME 33.7 Sec (25.0-35.0)
[2016-10-14 19:24] VITALS: BP 134/75; RESP 20
[2016-10-14] MEDS: SENNA TAB PO SCH (20:40)
[2016-10-14] MEDS: ATORVASTATIN 10 MG TAB PO SCH (20:40)
[2016-10-14] MEDS: HYDROCODONE/APAP (10/325) TAB PO PRN (20:40)
[2016-10-14] MEDS: QUETIAPINE 100 MG TAB PO SCH (20:40)
[2016-10-14] MEDS: INSULIN GLARGINE [LANtus] 3 ML PEN SC SCH (20:53)
[2016-10-15] MEDS: ACCUCHECK AT 2AM (Patients on SS coverage) XX SCH (02:00)
[2016-10-15] MEDS: HYDROCODONE/APAP (10/325) TAB PO PRN ×2 (04:30→12:17)
[2016-10-15] MEDS: PANTOPRAZOLE (EC) 40 MG TAB PO SCH (06:45)
[2016-10-15] MEDS: Insulin NOVOLOG SS MODERATE Algorithm (SS with meals and bedtime) SC SCH ×4 (07:35→21:00)
[2016-10-15] MEDS: HYDROmorphONE 1 MG/ML SYG IV PRN ×4 (07:45→17:04)
[2016-10-15] MEDS: INSULIN ASPART [NOVOLOG] 3 ML PEN SC SCH ×3 (07:49→17:10)
[2016-10-15] MEDS: HEPARIN 5,000 UNIT/0.5 ML SYG SC SCH ×2 (07:50→21:01)
[2016-10-15 07:54] VITALS: BP 125/64; RESP 18
[2016-10-15] MEDS: MUPIROCIN 2% 22 GM OINT TOP SCH ×2 (08:30→21:01)
[2016-10-15] MEDS: ARTIFICIAL TEARS 15 ML OPH BOTH EYES SCH ×4 (08:31→20:54)
[2016-10-15] MEDS: COLCHICINE 0.6 MG TAB PO SCH (08:34)
[2016-10-15] MEDS: TAMSULOSIN (SR) 0.4 MG CAP PO SCH (08:34)
[2016-10-15] MEDS: ALLOPURINOL 100 MG TAB PO SCH (08:34)
[2016-10-15] MEDS: LACTOBACILLUS CHEW TAB PO SCH ×3 (08:34→20:54)
[2016-10-15] MEDS: FERROUS SULFATE (EC) 325 MG TAB PO SCH (08:34)
[2016-10-15] MEDS: ASCORBIC ACID 500 MG TAB PO SCH (08:34)
[2016-10-15] MEDS: FEBUXOSTAT 40 MG TABLET PO SCH (08:34)
[2016-10-15] MEDS: DOCUSATE SODIUM 100 MG CAP PO SCH ×2 (08:35→20:54)
[2016-10-15] MEDS: METOPROLOL 100 MG TAB PO SCH ×2 (08:37→20:54)
[2016-10-15] MEDS: AMLODIPINE 10 MG TAB PO SCH (08:37)
[2016-10-15] MEDS: AMLODIPINE 5 MG TAB PO SCH (08:38)
[2016-10-15] MEDS: NYSTATIN SUSP 5 ML CUP PO SCH ×3 (09:00→20:54)
[2016-10-15] MEDS: PSYLLIUM 28% PACKET PO SCH (09:00)
--- NOTE | 2016-10-15 12:25 | CONS ---
Date/Time of Note Date/Time of Note DATE: 10/15/16 TIME: 12:25 Consult Date/Type/Reason Admit Date/Time Oct 06, 2016 at 19:58 Subjective rn reports some confusion this morning Objective pulm-cta abd-soft Vital Signs Date Time Temp Pulse Resp B/P Pulse Ox O2 Delivery O2 Flow Rate FiO2 10/15/16 07:54 97.4 66 18 125/64 98 10/13/16 08:00 Room Air Intake and Output 10/14/16 10/14/16 10/15/16 15:00 23:00 07:00 Intake Total 360 ml Output Total 900 ml 620 ml Balance -900 ml -260 ml Results/Medications Results 24 hrs Laboratory Tests Test 10/14/16 15:52 10/14/16 17:24 10/14/16 20:38 10/15/16 07:15 Activated Partial Thromboplast Time 33.7 INR International Normalized Ratio 0.95 Prothrombin Time 12.7 Prothrombin Time Ratio 1.0 Bedside Glucose 113 128 107 Test 10/15/16 12:18 Bedside Glucose 132 Medications Current Medications Ondansetron HCl (Zofran Inj) 4 mg Q6H PRN IV NAUSEA AND/OR VOMITING; Start at 20:49 Oxycodone/ Acetaminophen (Percocet (5/ 325)) 1 tab Q6H PRN PO PAIN; Start 10/06 at 20:49 Acetaminophen (Tylenol Tab) 500 mg Q6H PRN PO PAIN AND OR ELEVATED TEMP; Start 10/06/16 at 20:49 Allopurinol (Zyloprim) 100 mg DAILY PO Last administered on 10/15/16 08:34; Admin Dose 100 MG; Start 10/06/16 at 20:49 Amlodipine Besylate (Norvasc) 5 mg DAILY PO Last administered on 10/15/16 08:38 ; Admin Dose 5 MG; Start 10/06/16 at 20:49 Eye Lubricant (Artificial Tears Oph) 2 drop QID BOTH EYES Last administered on 10/15/16 08:31; Admin Dose 2 DROP; Start 10/06/16 at 20:49 Atorvastatin Calcium (Lipitor) 10 mg QHS PO Last administered on 10/14/16 20:40 ; Admin Dose 10 MG; Start 10/06/16 at 20:49 Febuxostat (Uloric) 40 mg DAILY PO Last administered on 10/15/16 08:34; Admin Dose 40 MG; Start 10/06/16 at 20:49 Lactobacillus Acidoph/Bulgaricus (Floranex) 1 tab TID PO Last administered on 08:34; Admin Dose 1 TAB; Start 10/06/16 at 20:49 Metoprolol Tartrate (Lopressor) 100 mg BID PO Last administered on 10/15/16 08: 37; Admin Dose 100 MG; Start 10/06/16 at 20:49 Nystatin (Nystatin Susp) 5 ml TID PO Last administered on 10/14/16 20:40; Admin Dose 5 ML; Start 10/06/16 at 20:49 Pantoprazole (Protonix Tab) 40 mg DAILY@06 PO Last administered on 10/15/16 06: 45; Admin Dose 40 MG; Start 10/06/16 at 20:49 Psyllium Hydrophilic Mucilloid (Metamucil) 1 pkt DAILY PO Last administered on 10/14/16 08:21; Admin Dose 1 PKT; Start 10/06/16 at 20:49 Tamsulosin HCl (Flomax) 0.4 mg DAILY PO Last administered on 10/15/16 08:34; Admin Dose 0.4 MG; Start 10/06/16 at 20:49 Miscellaneous Information 1 ea NOTE XX ; Start 10/06/16 at 20:49 Glucose (Glutose) 15 gm Q15M PRN PO DECREASED GLUCOSE; Start 10/06/16 at 20:49 Glucose (Glutose) 22.5 gm Q15M PRN PO DECREASED GLUCOSE; Start 10/06/16 at 20: 49 Dextrose (D50w Syringe) 25 ml Q15M PRN IV DECREASED GLUCOSE; Start 10/06/16 at 20:49 Dextrose (D50w Syringe) 50 ml Q15M PRN IV DECREASED GLUCOSE; Start 10/06/16 at 20:49 Glucagon (Glucagen) 1 mg Q15M PRN IM DECREASED GLUCOSE; Start 10/06/16 at 20:49 Glucose (Glutose) 15 gm Q15M PRN BUCCAL DECREASED GLUCOSE; Start 10/06/16 at 20 :49 Colchicine (Colchicine) 0.6 mg DAILY PO Last administered on 10/15/16 08:34; Admin Dose 0.6 MG; Start 10/06/16 at 20:49 Ascorbic Acid (Vitamin C) 500 mg DAILY PO Last administered on 10/15/16 08:34; Admin Dose 500 MG; Start 10/06/16 at 20:49 Clonidine (Catapres) 0.1 mg Q12H PRN PO SBP ABOVE 160; Start 10/06/16 at 20:49 Colchicine (Colchicine) 0.6 mg DAILY PRN PO gout; Start 10/06/16 at 20:49 Ferrous Sulfate (Ferrous Sulfate (Ec)) 325 mg DAILY PO Last administered on 10/15 08:34; Admin Dose 325 MG; Start 10/06/16 at 20:49 Hydralazine HCl (Apresoline) 25 mg Q8H PRN PO SPB ABOVE 160; Start 10/06/16 at 20:49 Acetaminophen/ Hydrocodone Bitart ([place] (10)) 1 tab Q4H PRN PO PAIN Last administered on 10/15/16 12:17; Admin Dose 1 TAB; Start 10/06/16 at 20:49 Lactulose (Enulose) 20 gm Q8 PRN PO CONSTIPATION; Start 10/06/16 at 20:49 Heparin Sodium (Porcine) (Heparin (5000 Units/0.5 ml)) 5,000 unit Q12 SC Last administered on 10/15/16 07:50; Admin Dose 5,000 UNIT; Start 10/06/16 at 20:49 Hydralazine HCl (Apresoline) 10 mg Q6H PRN IV if BP > 170; Start 10/06/16 at 20 :49 Quetiapine Fumarate (Seroquel) 100 mg QHS PO Last administered on 10/14/16 20: 40; Admin Dose 100 MG; Start 10/06/16 at 20:49 Amlodipine Besylate (Norvasc) 10 mg DAILY PO Last administered on 10/15/16 08: 37; Admin Dose 10 MG; Start 10/06/16 at 20:49 Docusate Sodium (Colace) 100 mg BID PO Last administered on 10/15/16 08:35; Admin Dose 100 MG; Start 10/07/16 at 09:00 Senna (Senokot) 1 tab HS PO Last administered on 10/14/16 20:40; Admin Dose 1 TAB; Start 10/07/16 at 21:00 Bisacodyl (Dulcolax Supp) 10 mg DAILY PRN [place] CONSTIPATION; Start 10/07/16 at 03 :00 Magnesium Hydroxide (Milk Of Mag) 30 ml BID PRN PO CONSTIPATION; Start at 03:00 Diagnostic Test (Pha) (Accucheck) 1 ea 02 XX Last administered on 10/12/16 02: 07; Admin Dose 1 EA; Start 10/08/16 at 02:00 Mupirocin (Bactroban) 1 applic BID TOP Last administered on 10/15/16 08:30; Admin Dose 1 APPLIC; Start 10/08/16 at 21:00 Hydromorphone HCl (Dilaudid) 0.5 mg Q3 PRN IV PAIN Last administered on 07:45; Admin Dose 0.5 MG; Start 10/10/16 at 18:00 Insulin Glargine (Lantus) 10 unit DAILY@20 SC Last administered on 10/14/16 20: 53; Admin Dose 10 UNIT; Start 10/11/16 at 22:00 Assessment/Plan Additional Assessment/Plan Rehab- acute enceph/h.o. CVA Progressing with rehab. Will check follow up head CT GI- gtube in place. Patient meeting nutritional needs by mouth, family requesting that Gtube be removed as outpatient -f/b urology A/CKI HTN BPH Hyperlipidemia MORGAN RANGEL MD Oct 15, 2016 12:25
--- NOTE | 2016-10-15 14:12 | PN ---
DATE: 10/07/2016 SUBJECTIVE: Urinary retention. The patient is status post insertion of a suprapubic tube and remov al of his urethral Potter catheter. The patient appears to be comfortable and denies any pain. OBJECTIVE: VITAL SIGNS: Temperature is 97.4, pulse is 66, respirations 18, blood pressure 125/64. ABDOMEN: Soft. He does have a G-tube that is closed and the suprapubic tube is draining clear urin e. LABORATORY DATA: Blood sugar is 132. Urine culture that was sent yesterday is no growth and still pending. IMPRESSION: Urinary retention, status post insertion of a suprapubic tube. PLAN: By tomorrow, we should clamp the suprapubic tube and then if he does urinate, then we could o pen the suprapubic tube and check the postvoid residual, and if he does not urinate, open the suprap ubic tube and drain his bladder. Dictated By: FELIX ROY/GORGE Conf#: [id number] DID#: [id number]
--- NOTE | 2016-10-15 16:01 | RADRPT ---
PROCEDURE: CT Brain without. CLINICAL INDICATION: Confusion TECHNIQUE: A CT of the brain was performed on a multi-slice CT scanner utilizing axial sections fr om the skull base through the vertex without contrast. Coronal and sagittal reconstructed images w ere provided. One or more of the following does reduction techniques were used: Automated exposure control; adjustment of the mA and/or kV according to patient size; use of the aorta of reconstructi on technique. Images were reviewed on a high-resolution PACS workstation. The exam CTDI = 37.25 mGy . The exam DLP = 634.23 mGy-cm. COMPARISON: CT brain 09/27/2016 FINDINGS: There is mild global volume loss which is stable. The ventricles and sulci are symmetric in size an d morphology. A right posterior parietal ventriculostomy tube remains in place. There is no eviden ce of hydronephrosis. The ventricles appear stable when compared to prior study. Again seen are pa tchy deep white matter hypodensities which are nonspecific but typical of small vessel chronic ische eric disease. there is stable focal encephalopathy in the superior left cerebellum, unchanged in gerald earance. There is no evidence of intracranial hemorrhage, mass effect, edema or midline shift. No abnormal intra-axial or extra-axial fluid collections are seen. The orellana/white matter differentiati on is well preserved. Again seen is a suboccipital craniotomy. The mastoid air cells are clear. The surrounding soft tiss ue scalp and bony calvarium are intact and normal. IMPRESSION: 1. Stable CT appearance of the brain compared to 09/27/2016 without evidence of acute intracranial pathology. 2. Stable right parietal ventriculoperitoneal shunt. No evidence of hydrocephalous. 3. Mild atrophy in deep white matter microangiopathic ischemic changes. 4. Status post suboccipital craniotomy encephalomalacia of the left superior cerebellum, stable. RPTAT: KK .Yury Betancourt MD, Date Time Electronically viewed and signed by .Yury Betancourt MD, MD on 10/15/2016 16:01 .B/
[2016-10-15 19:12] VITALS: BP 122/59; RESP 19
--- NOTE | 2016-10-15 19:37 | PN ---
Date/Time of Note Date/Time of Note DATE: 10/15/16 TIME: 19:34 Assessment/Plan VTE Prophylaxis VTE Prophylaxis Intervention: SCD's Lines/Catheters IV Catheter Type (from [facility]): [place] Urinary Cath still in place: Yes Reason Cath still needed: urinary retention Assessment/Plan Chief Complaint/Hosp Course ASSESSMENT AND PLAN: 1. Acute encephalopathy, resolved. 2. Urinary tract infection with cultures positive for Klebsiella pneumoniae and Providencia stuartii, s/p treatment. 3. Chronic kidney disease stage III/IV. Continue to monitor BUN and creatinine. Avoid nephrotoxic medication. 4. Diabetes mellitus. Continue NovoLog per sliding scale. 5. Hypertension. Continue Norvasc and Lopressor. 7. Hyperlipidemia. Continue Lipitor. 8. Gout. Continue patient on allopurinol, colchicine and Uloric. 9. History of intracranial hemorrhage and history of ventriculoperitoneal shunt. 10. Neurogenic bladder and urinary retention, S/p suprapubic catheter insertion today by Dr Fay, urology on 10/14. 11. 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 Continue heparin for deep venous thrombosis prophylaxis. Further recommendations based on clinical course. Plan of care discussed with Dr. Cartagena. Problems: Subjective 24 Hr Interval Summary Free Text/Dictation Patient status post suprapubic catheter insertion, complaints of pain, will increase Dilaudid to 1 mg as needed. Exam/Review of Systems Vital Signs Vitals Vital Signs Date Time Temp Pulse Resp B/P Pulse Ox O2 Delivery O2 Flow Rate FiO2 10/15/16 19:12 98.8 108 19 122/59 96 10/13/16 08:00 Room Air Intake and Output 10/14/16 10/14/16 10/15/16 15:00 23:00 07:00 Intake Total 360 ml Output Total 900 ml 620 ml Balance -900 ml -260 ml Exam GENERAL: Well-developed, well-nourished gentleman. No acute distress. HEENT: Head is atraumatic, normocephalic. Pupils equally round, reactive to light and accommodation. NECK: Supple. No cervical lymphadenopathy, no thyromegaly. CHEST: Lungs clear bilaterally. There are no rhonchi, wheezes, rales noted. CARDIOVASCULAR: Normal S1, S2. No murmurs, gallops, clicks, rubs noted. ABDOMEN: Round, soft, nondistended, nontender. Bowel sounds present. The patient has a G-tube with intact stoma. EXTREMITIES: No edema, clubbing, cyanosis. GENITOURINARY: Suprapubic catheter. SKIN: No rash, petechiae noted. NEUROLOGIC: The patient is awake, alert and oriented x3. Results Results 24 hrs Laboratory Tests Test 10/14/16 20:38 10/15/16 07:15 10/15/16 12:18 10/15/16 17:06 Bedside Glucose 128 107 132 127 Medications Medications Current Medications Ondansetron HCl (Zofran Inj) 4 mg Q6H PRN IV NAUSEA AND/OR VOMITING; Start at 20:49 Oxycodone/ Acetaminophen (Percocet (5/ 325)) 1 tab Q6H PRN PO PAIN; Start 10/06 at 20:49 Acetaminophen (Tylenol Tab) 500 mg Q6H PRN PO PAIN AND OR ELEVATED TEMP; Start 10/06/16 at 20:49 Allopurinol (Zyloprim) 100 mg DAILY PO Last administered on 10/15/16 08:34; Admin Dose 100 MG; Start 10/06/16 at 20:49 Amlodipine Besylate (Norvasc) 5 mg DAILY PO Last administered on 10/15/16 08:38 ; Admin Dose 5 MG; Start 10/06/16 at 20:49 Eye Lubricant (Artificial Tears Oph) 2 drop QID BOTH EYES Last administered on 10/15/16 17:09; Admin Dose 2 DROP; Start 10/06/16 at 20:49 Atorvastatin Calcium (Lipitor) 10 mg QHS PO Last administered on 10/14/16 20:40 ; Admin Dose 10 MG; Start 10/06/16 at 20:49 Febuxostat (Uloric) 40 mg DAILY PO Last administered on 10/15/16 08:34; Admin Dose 40 MG; Start 10/06/16 at 20:49 Lactobacillus Acidoph/Bulgaricus (Floranex) 1 tab TID PO Last administered on 13:51; Admin Dose 1 TAB; Start 10/06/16 at 20:49 Metoprolol Tartrate (Lopressor) 100 mg BID PO Last administered on 10/15/16 08: 37; Admin Dose 100 MG; Start 10/06/16 at 20:49 Nystatin (Nystatin Susp) 5 ml TID PO Last administered on 10/15/16 13:51; Admin Dose 5 ML; Start 10/06/16 at 20:49 Pantoprazole (Protonix Tab) 40 mg DAILY@06 PO Last administered on 10/15/16 06: 45; Admin Dose 40 MG; Start 10/06/16 at 20:49 Psyllium Hydrophilic Mucilloid (Metamucil) 1 pkt DAILY PO Last administered on 10/14/16 08:21; Admin Dose 1 PKT; Start 10/06/16 at 20:49 Tamsulosin HCl (Flomax) 0.4 mg DAILY PO Last administered on 10/15/16 08:34; Admin Dose 0.4 MG; Start 10/06/16 at 20:49 Miscellaneous Information 1 ea NOTE XX ; Start 10/06/16 at 20:49 Glucose (Glutose) 15 gm Q15M PRN PO DECREASED GLUCOSE; Start 10/06/16 at 20:49 Glucose (Glutose) 22.5 gm Q15M PRN PO DECREASED GLUCOSE; Start 10/06/16 at 20: 49 Dextrose (D50w Syringe) 25 ml Q15M PRN IV DECREASED GLUCOSE; Start 10/06/16 at 20:49 Dextrose (D50w Syringe) 50 ml Q15M PRN IV DECREASED GLUCOSE; Start 10/06/16 at 20:49 Glucagon (Glucagen) 1 mg Q15M PRN IM DECREASED GLUCOSE; Start 10/06/16 at 20:49 Glucose (Glutose) 15 gm Q15M PRN BUCCAL DECREASED GLUCOSE; Start 10/06/16 at 20 :49 Colchicine (Colchicine) 0.6 mg DAILY PO Last administered on 10/15/16 08:34; Admin Dose 0.6 MG; Start 10/06/16 at 20:49 Ascorbic Acid (Vitamin C) 500 mg DAILY PO Last administered on 10/15/16 08:34; Admin Dose 500 MG; Start 10/06/16 at 20:49 Clonidine (Catapres) 0.1 mg Q12H PRN PO SBP ABOVE 160; Start 10/06/16 at 20:49 Colchicine (Colchicine) 0.6 mg DAILY PRN PO gout; Start 10/06/16 at 20:49 Ferrous Sulfate (Ferrous Sulfate (Ec)) 325 mg DAILY PO Last administered on 10/15 08:34; Admin Dose 325 MG; Start 10/06/16 at 20:49 Hydralazine HCl (Apresoline) 25 mg Q8H PRN PO SPB ABOVE 160; Start 10/06/16 at 20:49 Acetaminophen/ Hydrocodone Bitart ([place] (10/325)) 1 tab Q4H PRN PO PAIN Last administered on 10/15/16 12:17; Admin Dose 1 TAB; Start 10/06/16 at 20:49 Lactulose (Enulose) 20 gm Q8 PRN PO CONSTIPATION; Start 10/06/16 at 20:49 Heparin Sodium (Porcine) (Heparin (5000 Units/0.5 ml)) 5,000 unit Q12 SC Last administered on 10/15/16 07:50; Admin Dose 5,000 UNIT; Start 10/06/16 at 20:49 Hydralazine HCl (Apresoline) 10 mg Q6H PRN IV if BP > 170; Start 10/06/16 at 20 :49 Quetiapine Fumarate (Seroquel) 100 mg QHS PO Last administered on 10/14/16 20: 40; Admin Dose 100 MG; Start 10/06/16 at 20:49 Amlodipine Besylate (Norvasc) 10 mg DAILY PO Last administered on 10/15/16 08: 37; Admin Dose 10 MG; Start 10/06/16 at 20:49 Docusate Sodium (Colace) 100 mg BID PO Last administered on 10/15/16 08:35; Admin Dose 100 MG; Start 10/07/16 at 09:00 Senna (Senokot) 1 tab HS PO Last administered on 10/14/16 20:40; Admin Dose 1 TAB; Start 10/07/16 at 21:00 Bisacodyl (Dulcolax Supp) 10 mg DAILY PRN [place] CONSTIPATION; Start 10/07/16 at 03 :00 Magnesium Hydroxide (Milk Of Mag) 30 ml BID PRN PO CONSTIPATION; Start at 03:00 Diagnostic Test (Pha) (Accucheck) 1 ea 02 XX Last administered on 10/12/16 02: 07; Admin Dose 1 EA; Start 10/08/16 at 02:00 Mupirocin (Bactroban) 1 applic BID TOP Last administered on 10/15/16 08:30; Admin Dose 1 APPLIC; Start 10/08/16 at 21:00 Insulin Glargine (Lantus) 10 unit DAILY@20 SC Last administered on 10/14/16 20: 53; Admin Dose 10 UNIT; Start 10/11/16 at 22:00 Hydromorphone HCl (Dilaudid) 1 mg Q3H PRN IV PAIN Last administered on 17:04; Admin Dose 1 MG; Start 10/15/16 at 17:00 MARIA ANTONIA GERMAN Oct 15, 2016 19:37
[2016-10-15] MEDS: ATORVASTATIN 10 MG TAB PO SCH (20:54)
[2016-10-15] MEDS: SENNA TAB PO SCH (20:54)
[2016-10-15] MEDS: QUETIAPINE 100 MG TAB PO SCH (20:55)
[2016-10-15] MEDS: INSULIN GLARGINE [LANtus] 3 ML PEN SC SCH (21:00)
[2016-10-16] MEDS: ACCUCHECK AT 2AM (Patients on SS coverage) XX SCH (02:00)
[2016-10-16] MEDS: PANTOPRAZOLE (EC) 40 MG TAB PO SCH (05:52)
[2016-10-16 07:25] VITALS: BP 132/78; RESP 18
[2016-10-16] MEDS: Insulin NOVOLOG SS MODERATE Algorithm (SS with meals and bedtime) SC SCH ×4 (07:35→20:30)
[2016-10-16] MEDS: INSULIN ASPART [NOVOLOG] 3 ML PEN SC SCH ×3 (08:39→17:43)
[2016-10-16] MEDS: MUPIROCIN 2% 22 GM OINT TOP SCH ×2 (08:40→20:28)
[2016-10-16] MEDS: HEPARIN 5,000 UNIT/0.5 ML SYG SC SCH ×2 (08:40→20:29)
[2016-10-16] MEDS: NYSTATIN SUSP 5 ML CUP PO SCH ×3 (08:41→20:27)
[2016-10-16] MEDS: FEBUXOSTAT 40 MG TABLET PO SCH (08:41)
[2016-10-16] MEDS: ALLOPURINOL 100 MG TAB PO SCH (08:41)
[2016-10-16] MEDS: AMLODIPINE 5 MG TAB PO SCH (08:41)
[2016-10-16] MEDS: ASCORBIC ACID 500 MG TAB PO SCH (08:41)
[2016-10-16] MEDS: METOPROLOL 100 MG TAB PO SCH ×2 (08:42→20:28)
[2016-10-16] MEDS: AMLODIPINE 10 MG TAB PO SCH (08:42)
[2016-10-16] MEDS: PSYLLIUM 28% PACKET PO SCH (08:42)
[2016-10-16] MEDS: ARTIFICIAL TEARS 15 ML OPH BOTH EYES SCH ×4 (08:43→20:28)
[2016-10-16] MEDS: FERROUS SULFATE (EC) 325 MG TAB PO SCH (08:43)
[2016-10-16] MEDS: COLCHICINE 0.6 MG TAB PO SCH (08:43)
[2016-10-16] MEDS: DOCUSATE SODIUM 100 MG CAP PO SCH ×2 (08:43→20:27)
[2016-10-16] MEDS: TAMSULOSIN (SR) 0.4 MG CAP PO SCH (08:43)
[2016-10-16] MEDS: LACTOBACILLUS CHEW TAB PO SCH ×3 (08:43→20:27)
[2016-10-16] MEDS: HYDROCODONE/APAP (10/325) TAB PO PRN (11:53)
--- NOTE | 2016-10-16 12:18 | CONS ---
Date/Time of Note Date/Time of Note DATE: 10/16/16 TIME: Consult Date/Type/Reason Admit Date/Time Oct 06, 2016 at 19:58 Subjective doing well Objective pulm-cta min assist wc mobility mod/min ambulation Vital Signs Date Time Temp Pulse Resp B/P Pulse Ox O2 Delivery O2 Flow Rate FiO2 10/16/16 07:25 98.4 70 18 132/78 96 10/13/16 08:00 Room Air Intake and Output 10/15/16 10/15/16 10/16/16 15:00 23:00 07:00 Intake Total 1070 ml 1160 ml 350 ml Output Total 750 ml Balance 1070 ml 410 ml 350 ml Results/Medications Results 24 hrs Laboratory Tests Test 10/15/16 12:18 10/15/16 17:06 10/15/16 20:51 10/16/16 07:39 Bedside Glucose 132 127 110 97 Test 10/16/16 12:01 Bedside Glucose 123 Medications Current Medications Ondansetron HCl (Zofran Inj) 4 mg Q6H PRN IV NAUSEA AND/OR VOMITING; Start at 20:49 Oxycodone/ Acetaminophen (Percocet (5/ 325)) 1 tab Q6H PRN PO PAIN; Start 10/06 at 20:49 Acetaminophen (Tylenol Tab) 500 mg Q6H PRN PO PAIN AND OR ELEVATED TEMP; Start 10/06/16 at 20:49 Allopurinol (Zyloprim) 100 mg DAILY PO Last administered on 10/16/16 08:41; Admin Dose 100 MG; Start 10/06/16 at 20:49 Amlodipine Besylate (Norvasc) 5 mg DAILY PO Last administered on 10/16/16 08:41 ; Admin Dose 5 MG; Start 10/06/16 at 20:49 Eye Lubricant (Artificial Tears Oph) 2 drop QID BOTH EYES Last administered on 10/16/16 08:43; Admin Dose 2 DROP; Start 10/06/16 at 20:49 Atorvastatin Calcium (Lipitor) 10 mg QHS PO Last administered on 10/15/16 20:54 ; Admin Dose 10 MG; Start 10/06/16 at 20:49 Febuxostat (Uloric) 40 mg DAILY PO Last administered on 10/16/16 08:41; Admin Dose 40 MG; Start 10/06/16 at 20:49 Lactobacillus Acidoph/Bulgaricus (Floranex) 1 tab TID PO Last administered on 08:43; Admin Dose 1 TAB; Start 10/06/16 at 20:49 Metoprolol Tartrate (Lopressor) 100 mg BID PO Last administered on 10/16/16 08: 42; Admin Dose 100 MG; Start 10/06/16 at 20:49 Nystatin (Nystatin Susp) 5 ml TID PO Last administered on 10/16/16 08:41; Admin Dose 5 ML; Start 10/06/16 at 20:49 Pantoprazole (Protonix Tab) 40 mg DAILY@06 PO Last administered on 10/16/16 05: 52; Admin Dose 40 MG; Start 10/06/16 at 20:49 Psyllium Hydrophilic Mucilloid (Metamucil) 1 pkt DAILY PO Last administered on 10/16/16 08:42; Admin Dose 1 PKT; Start 10/06/16 at 20:49 Tamsulosin HCl (Flomax) 0.4 mg DAILY PO Last administered on 10/16/16 08:43; Admin Dose 0.4 MG; Start 10/06/16 at 20:49 Miscellaneous Information 1 ea NOTE XX ; Start 10/06/16 at 20:49 Glucose (Glutose) 15 gm Q15M PRN PO DECREASED GLUCOSE; Start 10/06/16 at 20:49 Glucose (Glutose) 22.5 gm Q15M PRN PO DECREASED GLUCOSE; Start 10/06/16 at 20: 49 Dextrose (D50w Syringe) 25 ml Q15M PRN IV DECREASED GLUCOSE; Start 10/06/16 at 20:49 Dextrose (D50w Syringe) 50 ml Q15M PRN IV DECREASED GLUCOSE; Start 10/06/16 at 20:49 Glucagon (Glucagen) 1 mg Q15M PRN IM DECREASED GLUCOSE; Start 10/06/16 at 20:49 Glucose (Glutose) 15 gm Q15M PRN BUCCAL DECREASED GLUCOSE; Start 10/06/16 at 20 :49 Colchicine (Colchicine) 0.6 mg DAILY PO Last administered on 10/16/16 08:43; Admin Dose 0.6 MG; Start 10/06/16 at 20:49 Ascorbic Acid (Vitamin C) 500 mg DAILY PO Last administered on 10/16/16 08:41; Admin Dose 500 MG; Start 10/06/16 at 20:49 Clonidine (Catapres) 0.1 mg Q12H PRN PO SBP ABOVE 160; Start 10/06/16 at 20:49 Colchicine (Colchicine) 0.6 mg DAILY PRN PO gout; Start 10/06/16 at 20:49 Ferrous Sulfate (Ferrous Sulfate (Ec)) 325 mg DAILY PO Last administered on 10/16 08:43; Admin Dose 325 MG; Start 10/06/16 at 20:49 Hydralazine HCl (Apresoline) 25 mg Q8H PRN PO SPB ABOVE 160; Start 10/06/16 at 20:49 Acetaminophen/ Hydrocodone Bitart ([place] ()) 1 tab Q4H PRN PO PAIN Last administered on 10/16/16 11:53; Admin Dose 1 TAB; Start 10/06/16 at 20:49 Lactulose (Enulose) 20 gm Q8 PRN PO CONSTIPATION; Start 10/06/16 at 20:49 Heparin Sodium (Porcine) (Heparin (5000 Units/0.5 ml)) 5,000 unit Q12 SC Last administered on 10/16/16 08:40; Admin Dose 5,000 UNIT; Start 10/06/16 at 20:49 Hydralazine HCl (Apresoline) 10 mg Q6H PRN IV if BP > 170; Start 10/06/16 at 20 :49 Quetiapine Fumarate (Seroquel) 100 mg QHS PO Last administered on 10/15/16 20: 55; Admin Dose 100 MG; Start 10/06/16 at 20:49 Amlodipine Besylate (Norvasc) 10 mg DAILY PO Last administered on 10/16/16 08: 42; Admin Dose 10 MG; Start 10/06/16 at 20:49 Docusate Sodium (Colace) 100 mg BID PO Last administered on 10/16/16 08:43; Admin Dose 100 MG; Start 10/07/16 at 09:00 Senna (Senokot) 1 tab HS PO Last administered on 10/15/16 20:54; Admin Dose 1 TAB; Start 10/07/16 at 21:00 Bisacodyl (Dulcolax Supp) 10 mg DAILY PRN [place] CONSTIPATION; Start 10/07/16 at 03 :00 Magnesium Hydroxide (Milk Of Mag) 30 ml BID PRN PO CONSTIPATION; Start at 03:00 Diagnostic Test (Pha) (Accucheck) 1 ea 02 XX Last administered on 10/12/16 02: 07; Admin Dose 1 EA; Start 10/08/16 at 02:00 Mupirocin (Bactroban) 1 applic BID TOP Last administered on 10/16/16 08:40; Admin Dose 1 APPLIC; Start 10/08/16 at 21:00 Insulin Glargine (Lantus) 10 unit DAILY@20 SC Last administered on 10/15/16 21: 00; Admin Dose 10 UNIT; Start 10/11/16 at 22:00 Hydromorphone HCl (Dilaudid) 1 mg Q3H PRN IV PAIN Last administered on 17:04; Admin Dose 1 MG; Start 10/15/16 at 17:00 Assessment/Plan Additional Assessment/Plan Rehab- acute enceph/h.o. CVA Continue rehab GI- gtube in place. Patient meeting nutritional needs by mouth, family requesting that Gtube be removed as outpatient -f/b urology A/CKI HTN BPH Hyperlipidemia MORGAN RANGEL MD Oct 16, 2016 12:18
--- NOTE | 2016-10-16 14:02 | PN ---
Date/Time of Note Date/Time of Note DATE: 10/16/16 TIME: 14:00 Assessment/Plan VTE Prophylaxis VTE Prophylaxis Intervention: SCD's Lines/Catheters IV [facility] (from [facility] Central line still needed: Yes Urinary Cath still in place: Yes (PT. HAS SUPRAPUBIC CATHETER) Reason Cath still needed: urinary retention Assessment/Plan Chief Complaint/Hosp Course ASSESSMENT AND PLAN: 1. Acute encephalopathy, resolved. 2. Urinary tract infection with cultures positive for Klebsiella pneumoniae and Providencia stuartii, s/p treatment. 3. Chronic kidney disease stage III/IV. Continue to monitor BUN and creatinine. Avoid nephrotoxic medication. 4. Diabetes mellitus. Continue NovoLog per sliding scale. 5. Hypertension. Continue Norvasc and Lopressor. 7. Hyperlipidemia. Continue Lipitor. 8. Gout. Continue patient on allopurinol, colchicine and Uloric. 9. History of intracranial hemorrhage and history of ventriculoperitoneal shunt. 10. Neurogenic bladder and urinary retention, S/p suprapubic catheter insertion today by Dr Fay, urology on 10/14. 11. 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 Continue heparin for deep venous thrombosis prophylaxis. Further recommendations based on clinical course. Plan of care discussed with Dr. Cartagena. Problems: Subjective 24 Hr Interval Summary Free Text/Dictation Patient's was periods of confusion, status post suprapubic catheter was complains of pain requiring pain medication, patient is corporative oriented. Exam/Review of Systems Vital Signs Vitals Vital Signs Date Time Temp Pulse Resp B/P Pulse Ox O2 Delivery O2 Flow Rate FiO2 10/16/16 07:25 98.4 70 18 132/78 96 10/13/16 08:00 Room Air Intake and Output 10/15/16 10/15/16 10/16/16 15:00 23:00 07:00 Intake Total 1070 ml 1160 ml 350 ml Output Total 750 ml Balance 1070 ml 410 ml 350 ml Exam GENERAL: Well-developed, well-nourished gentleman. No acute distress. HEENT: Head is atraumatic, normocephalic. Pupils equally round, reactive to light and accommodation. NECK: Supple. No cervical lymphadenopathy, no thyromegaly. CHEST: Lungs clear bilaterally. There are no rhonchi, wheezes, rales noted. CARDIOVASCULAR: Normal S1, S2. No murmurs, gallops, clicks, rubs noted. ABDOMEN: Round, soft, nondistended, nontender. Bowel sounds present. The patient has a G-tube with intact stoma. EXTREMITIES: No edema, clubbing, cyanosis. GENITOURINARY: Suprapubic catheter. SKIN: No rash, petechiae noted. NEUROLOGIC: The patient is awake, alert and oriented x3. Results Results 24 hrs Laboratory Tests Test 10/15/16 17:06 10/15/16 20:51 10/16/16 07:39 10/16/16 12:01 Bedside Glucose 127 110 97 123 Medications Medications Current Medications Ondansetron HCl (Zofran Inj) 4 mg Q6H PRN IV NAUSEA AND/OR VOMITING; Start at 20:49 Oxycodone/ Acetaminophen (Percocet (5/ 325)) 1 tab Q6H PRN PO PAIN; Start 10/06 at 20:49 Acetaminophen (Tylenol Tab) 500 mg Q6H PRN PO PAIN AND OR ELEVATED TEMP; Start 10/06/16 at 20:49 Allopurinol (Zyloprim) 100 mg DAILY PO Last administered on 10/16/16 08:41; Admin Dose 100 MG; Start 10/06/16 at 20:49 Amlodipine Besylate (Norvasc) 5 mg DAILY PO Last administered on 10/16/16 08:41 ; Admin Dose 5 MG; Start 10/06/16 at 20:49 Eye Lubricant (Artificial Tears Oph) 2 drop QID BOTH EYES Last administered on 10/16/16 12:26; Admin Dose 2 DROP; Start 10/06/16 at 20:49 Atorvastatin Calcium (Lipitor) 10 mg QHS PO Last administered on 10/15/16 20:54 ; Admin Dose 10 MG; Start 10/06/16 at 20:49 Febuxostat (Uloric) 40 mg DAILY PO Last administered on 10/16/16 08:41; Admin Dose 40 MG; Start 10/06/16 at 20:49 Lactobacillus Acidoph/Bulgaricus (Floranex) 1 tab TID PO Last administered on 12:27; Admin Dose 1 TAB; Start 10/06/16 at 20:49 Metoprolol Tartrate (Lopressor) 100 mg BID PO Last administered on 10/16/16 08: 42; Admin Dose 100 MG; Start 10/06/16 at 20:49 Nystatin (Nystatin Susp) 5 ml TID PO Last administered on 10/16/16 12:27; Admin Dose 5 ML; Start 10/06/16 at 20:49 Pantoprazole (Protonix Tab) 40 mg DAILY@06 PO Last administered on 10/16/16 05: 52; Admin Dose 40 MG; Start 10/06/16 at 20:49 Psyllium Hydrophilic Mucilloid (Metamucil) 1 pkt DAILY PO Last administered on 10/16/16 08:42; Admin Dose 1 PKT; Start 10/06/16 at 20:49 Tamsulosin HCl (Flomax) 0.4 mg DAILY PO Last administered on 10/16/16 08:43; Admin Dose 0.4 MG; Start 10/06/16 at 20:49 Miscellaneous Information 1 ea NOTE XX ; Start 10/06/16 at 20:49 Glucose (Glutose) 15 gm Q15M PRN PO DECREASED GLUCOSE; Start 10/06/16 at 20:49 Glucose (Glutose) 22.5 gm Q15M PRN PO DECREASED GLUCOSE; Start 10/06/16 at 20: 49 Dextrose (D50w Syringe) 25 ml Q15M PRN IV DECREASED GLUCOSE; Start 10/06/16 at 20:49 Dextrose (D50w Syringe) 50 ml Q15M PRN IV DECREASED GLUCOSE; Start 10/06/16 at 20:49 Glucagon (Glucagen) 1 mg Q15M PRN IM DECREASED GLUCOSE; Start 10/06/16 at 20:49 Glucose (Glutose) 15 gm Q15M PRN BUCCAL DECREASED GLUCOSE; Start 10/06/16 at 20 :49 Colchicine (Colchicine) 0.6 mg DAILY PO Last administered on 10/16/16 08:43; Admin Dose 0.6 MG; Start 10/06/16 at 20:49 Ascorbic Acid (Vitamin C) 500 mg DAILY PO Last administered on 10/16/16 08:41; Admin Dose 500 MG; Start 10/06/16 at 20:49 Clonidine (Catapres) 0.1 mg Q12H PRN PO SBP ABOVE 160; Start 10/06/16 at 20:49 Colchicine (Colchicine) 0.6 mg DAILY PRN PO gout; Start 10/06/16 at 20:49 Ferrous Sulfate (Ferrous Sulfate (Ec)) 325 mg DAILY PO Last administered on 10/16 08:43; Admin Dose 325 MG; Start 10/06/16 at 20:49 Hydralazine HCl (Apresoline) 25 mg Q8H PRN PO SPB ABOVE 160; Start 10/06/16 at 20:49 Acetaminophen/ Hydrocodone Bitart ([place] (10)) 1 tab Q4H PRN PO PAIN Last administered on 10/16/16 11:53; Admin Dose 1 TAB; Start 10/06/16 at 20:49 Lactulose (Enulose) 20 gm Q8 PRN PO CONSTIPATION; Start 10/06/16 at 20:49 Heparin Sodium (Porcine) (Heparin (5000 Units/0.5 ml)) 5,000 unit Q12 SC Last administered on 10/16/16 08:40; Admin Dose 5,000 UNIT; Start 10/06/16 at 20:49 Hydralazine HCl (Apresoline) 10 mg Q6H PRN IV if BP > 170; Start 10/06/16 at 20 :49 Quetiapine Fumarate (Seroquel) 100 mg QHS PO Last administered on 10/15/16 20: 55; Admin Dose 100 MG; Start 10/06/16 at 20:49 Amlodipine Besylate (Norvasc) 10 mg DAILY PO Last administered on 10/16/16 08: 42; Admin Dose 10 MG; Start 10/06/16 at 20:49 Docusate Sodium (Colace) 100 mg BID PO Last administered on 10/16/16 08:43; Admin Dose 100 MG; Start 10/07/16 at 09:00 Senna (Senokot) 1 tab HS PO Last administered on 10/15/16 20:54; Admin Dose 1 TAB; Start 10/07/16 at 21:00 Bisacodyl (Dulcolax Supp) 10 mg DAILY PRN [place] CONSTIPATION; Start 10/07/16 at 03 :00 Magnesium Hydroxide (Milk Of Mag) 30 ml BID PRN PO CONSTIPATION; Start at 03:00 Diagnostic Test (Pha) (Accucheck) 1 ea 02 XX Last administered on 10/12/16 02: 07; Admin Dose 1 EA; Start 10/08/16 at 02:00 Mupirocin (Bactroban) 1 applic BID TOP Last administered on 10/16/16 08:40; Admin Dose 1 APPLIC; Start 10/08/16 at 21:00 Insulin Glargine (Lantus) 10 unit DAILY@20 SC Last administered on 10/15/16 21: 00; Admin Dose 10 UNIT; Start 10/11/16 at 22:00 Hydromorphone HCl (Dilaudid) 1 mg Q3H PRN IV PAIN Last administered on 17:04; Admin Dose 1 MG; Start 10/15/16 at 17:00 MARIA ANTONIA GERMAN Oct 16, 2016 14:02
--- NOTE | 2016-10-16 18:59 | PN ---
DATE: 10/16/2016 SUBJECTIVE: Urinary retention. Patient had a suprapubic tube placed a couple of days ago, and the suprapubic tube is draining well, and the urine is clear. Urine culture from this at the time of th e insertion of the suprapubic tube showed no growth in 48 hours. The patient is planned to be disch arged tomorrow; therefore, will try to see if he could urinate on his own, so we will plug the supra pubic tube with a catheter plug to allow the bladder to fill up, and then the patient to urinate on his own. If he does urinate, we could measure the volume voided and then open the suprapubic tube t o check the postvoid residual, and if the patient does not void in 6 hours, we could open the suprap ubic tube and drain the bladder, plug it again, and wait for another 6 hours, and keep on repeating the same with the hope that the patient eventually will be able to urinate so one could get rid of t he suprapubic tube. Dictated By: FELIX ROY/GORGE Conf#: [id number] DID#: [id number]
--- NOTE | 2016-10-16 19:51 | CONS ---
DATE OF ADMISSION: 10/06/2016 DATE OF CONSULTATION: 10/16/2016 PSYCHOLOGY -- INDIVIDUAL SESSION [id number] This is a followup on a patient who was seen last week. The patient is preparing to be discharged t omorrow. The patient reports that he has gotten better, but still has some pain and is concerned ab out this. The patient does believe that he has made progress while he has been in the hospital, but is still overall frustrated by some of his medical problems. I worked with the patient to help enc ourage him to continue to work on his medical and emotional issues. Dictated By: KAMILA BELTRÁN PHD RK/GORGE Conf#: [id number] DID#: [id number] CC: MORGAN RANGEL MD;*End*
[2016-10-16 20:23] VITALS: BP 146/81; RESP 18
[2016-10-16] MEDS: QUETIAPINE 100 MG TAB PO SCH (20:27)
[2016-10-16] MEDS: SENNA TAB PO SCH (20:27)
[2016-10-16] MEDS: ATORVASTATIN 10 MG TAB PO SCH (20:27)
[2016-10-16] MEDS: INSULIN GLARGINE [LANtus] 3 ML PEN SC SCH (20:30)
[2016-10-17] MEDS: ACCUCHECK AT 2AM (Patients on SS coverage) XX SCH (02:00)
[2016-10-17] MEDS: PANTOPRAZOLE (EC) 40 MG TAB PO SCH (06:28)
[2016-10-17] MEDS: HYDROmorphONE 1 MG/ML SYG IV PRN ×5 (07:13→18:44)
[2016-10-17 07:30] VITALS: BP 131/76; RESP 18
[2016-10-17] MEDS: Insulin NOVOLOG SS MODERATE Algorithm (SS with meals and bedtime) SC SCH ×4 (07:35→21:00)
[2016-10-17 08:30] VITALS: BP 136/78; RESP 20
[2016-10-17] MEDS: INSULIN ASPART [NOVOLOG] 3 ML PEN SC SCH ×3 (08:41→17:43)
[2016-10-17] MEDS: LACTOBACILLUS CHEW TAB PO SCH ×3 (08:42→21:14)
[2016-10-17] MEDS: HEPARIN 5,000 UNIT/0.5 ML SYG SC SCH ×2 (08:42→21:11)
[2016-10-17] MEDS: ASCORBIC ACID 500 MG TAB PO SCH (08:42)
[2016-10-17] MEDS: COLCHICINE 0.6 MG TAB PO SCH (08:42)
[2016-10-17] MEDS: DOCUSATE SODIUM 100 MG CAP PO SCH ×2 (08:42→21:00)
[2016-10-17] MEDS: ALLOPURINOL 100 MG TAB PO SCH (08:42)
[2016-10-17] MEDS: FERROUS SULFATE (EC) 325 MG TAB PO SCH (08:42)
[2016-10-17] MEDS: METOPROLOL 100 MG TAB PO SCH ×2 (08:43→21:21)
[2016-10-17] MEDS: AMLODIPINE 10 MG TAB PO SCH (08:43)
[2016-10-17] MEDS: AMLODIPINE 5 MG TAB PO SCH (08:44)
[2016-10-17] MEDS: FEBUXOSTAT 40 MG TABLET PO SCH (08:45)
[2016-10-17] MEDS: PSYLLIUM 28% PACKET PO SCH (09:00)
[2016-10-17] MEDS: TAMSULOSIN (SR) 0.4 MG CAP PO SCH (09:29)
[2016-10-17] MEDS: NYSTATIN SUSP 5 ML CUP PO SCH ×3 (09:29→21:14)
[2016-10-17] MEDS: MUPIROCIN 2% 22 GM OINT TOP SCH ×2 (09:30→21:10)
[2016-10-17] MEDS: ARTIFICIAL TEARS 15 ML OPH BOTH EYES SCH ×4 (09:30→21:10)
[2016-10-17 10:30] VITALS: PULSE 99
--- NOTE | 2016-10-17 11:59 | CONS ---
Date/Time of Note Date/Time of Note DATE: 10/17/16 TIME: 11:57 Consult Date/Type/Reason Admit Date/Time Oct 06, 2016 at 19:58 Subjective RN reports patient with low grade temp, and sl tenderness around suprapubic site Objective pulm-cta min assist transfer Vital Signs Date Time Temp Pulse Resp B/P Pulse Ox O2 Delivery O2 Flow Rate FiO2 10/17/16 10:30 99.5 99 10/17/16 08:30 20 136/78 Room Air 10/17/16 07:30 97 Intake and Output 10/16/16 10/16/16 10/17/16 14:59 22:59 06:59 Intake Total 600 ml 240 ml Output Total 700 ml 350 ml Balance -100 ml -110 ml Results/Medications Results 24 hrs Laboratory Tests Test 10/16/16 12:01 10/16/16 16:58 10/16/16 20:21 10/17/16 07:14 Bedside Glucose 123 87 122 82 Test 10/17/16 11:55 Bedside Glucose 134 Medications Current Medications Ondansetron HCl (Zofran Inj) 4 mg Q6H PRN IV NAUSEA AND/OR VOMITING; Start at 20:49 Oxycodone/ Acetaminophen (Percocet (5/ 325)) 1 tab Q6H PRN PO PAIN; Start 10/06 at 20:49 Acetaminophen (Tylenol Tab) 500 mg Q6H PRN PO PAIN AND OR ELEVATED TEMP; Start 10/06/16 at 20:49 Allopurinol (Zyloprim) 100 mg DAILY PO Last administered on 10/17/16 08:42; Admin Dose 100 MG; Start 10/06/16 at 20:49 Amlodipine Besylate (Norvasc) 5 mg DAILY PO Last administered on 10/17/16 08:44 ; Admin Dose 5 MG; Start 10/06/16 at 20:49 Eye Lubricant (Artificial Tears Oph) 2 drop QID BOTH EYES Last administered on 10/17/16 09:30; Admin Dose 2 DROP; Start 10/06/16 at 20:49 Atorvastatin Calcium (Lipitor) 10 mg QHS PO Last administered on 10/16/16 20:27 ; Admin Dose 10 MG; Start 10/06/16 at 20:49 Febuxostat (Uloric) 40 mg DAILY PO Last administered on 10/17/16 08:45; Admin Dose 40 MG; Start 10/06/16 at 20:49 Lactobacillus Acidoph/Bulgaricus (Floranex) 1 tab TID PO Last administered on 08:42; Admin Dose 1 TAB; Start 10/06/16 at 20:49 Metoprolol Tartrate (Lopressor) 100 mg BID PO Last administered on 10/17/16 08: 43; Admin Dose 100 MG; Start 10/06/16 at 20:49 Nystatin (Nystatin Susp) 5 ml TID PO Last administered on 10/17/16 09:29; Admin Dose 5 ML; Start 10/06/16 at 20:49 Pantoprazole (Protonix Tab) 40 mg DAILY@06 PO Last administered on 10/17/16 06: 28; Admin Dose 40 MG; Start 10/06/16 at 20:49 Psyllium Hydrophilic Mucilloid (Metamucil) 1 pkt DAILY PO Last administered on 10/16/16 08:42; Admin Dose 1 PKT; Start 10/06/16 at 20:49 Tamsulosin HCl (Flomax) 0.4 mg DAILY PO Last administered on 10/17/16 09:29; Admin Dose 0.4 MG; Start 10/06/16 at 20:49 Miscellaneous Information 1 ea NOTE XX ; Start 10/06/16 at 20:49 Glucose (Glutose) 15 gm Q15M PRN PO DECREASED GLUCOSE; Start 10/06/16 at 20:49 Glucose (Glutose) 22.5 gm Q15M PRN PO DECREASED GLUCOSE; Start 10/06/16 at 20: 49 Dextrose (D50w Syringe) 25 ml Q15M PRN IV DECREASED GLUCOSE; Start 10/06/16 at 20:49 Dextrose (D50w Syringe) 50 ml Q15M PRN IV DECREASED GLUCOSE; Start 10/06/16 at 20:49 Glucagon (Glucagen) 1 mg Q15M PRN IM DECREASED GLUCOSE; Start 10/06/16 at 20:49 Glucose (Glutose) 15 gm Q15M PRN BUCCAL DECREASED GLUCOSE; Start 10/06/16 at 20 :49 Colchicine (Colchicine) 0.6 mg DAILY PO Last administered on 10/17/16 08:42; Admin Dose 0.6 MG; Start 10/06/16 at 20:49 Ascorbic Acid (Vitamin C) 500 mg DAILY PO Last administered on 10/17/16 08:42; Admin Dose 500 MG; Start 10/06/16 at 20:49 Clonidine (Catapres) 0.1 mg Q12H PRN PO SBP ABOVE 160; Start 10/06/16 at 20:49 Colchicine (Colchicine) 0.6 mg DAILY PRN PO gout; Start 10/06/16 at 20:49 Ferrous Sulfate (Ferrous Sulfate (Ec)) 325 mg DAILY PO Last administered on 10/17 08:42; Admin Dose 325 MG; Start 10/06/16 at 20:49 Hydralazine HCl (Apresoline) 25 mg Q8H PRN PO SPB ABOVE 160; Start 10/06/16 at 20:49 Acetaminophen/ Hydrocodone Bitart ([place] (10)) 1 tab Q4H PRN PO PAIN Last administered on 10/16/16 11:53; Admin Dose 1 TAB; Start 10/06/16 at 20:49 Lactulose (Enulose) 20 gm Q8 PRN PO CONSTIPATION; Start 10/06/16 at 20:49 Heparin Sodium (Porcine) (Heparin (5000 Units/0.5 ml)) 5,000 unit Q12 SC Last administered on 10/17/16 08:42; Admin Dose 5,000 UNIT; Start 10/06/16 at 20:49 Hydralazine HCl (Apresoline) 10 mg Q6H PRN IV if BP > 170; Start 10/06/16 at 20 :49 Quetiapine Fumarate (Seroquel) 100 mg QHS PO Last administered on 10/16/16 20: 27; Admin Dose 100 MG; Start 10/06/16 at 20:49 Amlodipine Besylate (Norvasc) 10 mg DAILY PO Last administered on 10/17/16 08: 43; Admin Dose 10 MG; Start 10/06/16 at 20:49 Docusate Sodium (Colace) 100 mg BID PO Last administered on 10/17/16 08:42; Admin Dose 100 MG; Start 10/07/16 at 09:00 Senna (Senokot) 1 tab HS PO Last administered on 10/16/16 20:27; Admin Dose 1 TAB; Start 10/07/16 at 21:00 Bisacodyl (Dulcolax Supp) 10 mg DAILY PRN IN CONSTIPATION; Start 10/07/16 at 03 :00 Magnesium Hydroxide (Milk Of Mag) 30 ml BID PRN PO CONSTIPATION; Start at 03:00 Diagnostic Test (Pha) (Accucheck) 1 ea 02 XX Last administered on 10/12/16 02: 07; Admin Dose 1 EA; Start 10/08/16 at 02:00 Mupirocin (Bactroban) 1 applic BID TOP Last administered on 10/17/16 09:30; Admin Dose 1 APPLIC; Start 10/08/16 at 21:00 Insulin Glargine (Lantus) 10 unit DAILY@20 SC Last administered on 10/16/16 20: 30; Admin Dose 10 UNIT; Start 10/11/16 at 22:00 Hydromorphone HCl (Dilaudid) 1 mg Q3H PRN IV PAIN Last administered on 10:37; Admin Dose 1 MG; Start 10/15/16 at 17:00 Assessment/Plan Additional Assessment/Plan Rehab- acute enceph/h.o. CVA Continue rehab GI- gtube in place. Patient meeting nutritional needs by mouth, family requesting that Gtube be removed as outpatient -uro to f/u regarding discomfort ID- check labs A/CKI HTN BPH Hyperlipidemidispo- given new complaints, and low grade temp, witll extend stay while w/u in progress MORGAN RANGEL MD Oct 17, 2016 11:59
[2016-10-17] MEDS ORDERED: VANCOMYCIN IV PER PHARMACY XX SCH (12:30)
[2016-10-17 12:50] LABS: ADD SCAN DIFF NO
--- NOTE | 2016-10-17 12:51 | PN ---
Date/Time of Note Date/Time of Note DATE: 10/17/16 TIME: 12:50 Assessment/Plan VTE Prophylaxis VTE Prophylaxis Intervention: heparin, other Lines/Catheters IV Catheter Type (from [facility]): Saline Lock Urinary Cath still in place: Yes Assessment/Plan Assessment/Plan 1. Acute encephalopathy, resolved. 2. Urinary tract infection with cultures positive for Klebsiella pneumoniae and Providencia stuartii, s/p treatment. 3. Chronic kidney disease stage III/IV. Continue to monitor BUN and creatinine. Avoid nephrotoxic medication. 4. Diabetes mellitus. Continue NovoLog per sliding scale. 5. Hypertension. Continue Norvasc and Lopressor. 7. Hyperlipidemia. Continue Lipitor. 8. Gout. Continue patient on allopurinol, colchicine and Uloric. 9. History of intracranial hemorrhage and history of ventriculoperitoneal shunt. 10. Neurogenic bladder and urinary retention, S/p suprapubic catheter insertion today by Dr Fay, urology on 10/14. 11. 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 Continue heparin for deep venous thrombosis prophylaxis. Further recommendations based on clinical course. Plan of care discussed with Dr. Cartagena. Subjective 24 Hr Interval Summary Constitutional: no complaints Eyes: no complaints ENT: no complaints Respiratory: pain Cardiovascular: no complaints Gastrointestinal: no complaints Genitourinary: no complaints Musculoskeletal: no complaints Skin: no complaints Endocrine: no complaints Lymphatic: no complaints Exam/Review of Systems Vital Signs Vitals Vital Signs Date Time Temp Pulse Resp B/P Pulse Ox O2 Delivery O2 Flow Rate FiO2 10/17/16 10:30 99.5 99 10/17/16 08:30 20 136/78 Room Air 10/17/16 07:30 97 Intake and Output 10/16/16 10/16/16 10/17/16 15:00 23:00 07:00 Intake Total 600 ml 240 ml Output Total 700 ml 350 ml Balance -100 ml -110 ml Exam Constitutional: alert, oriented, well developed Psych: nl mood/affect Head: atraumatic Eyes: EOMI ENMT: nl external ears & nose Neck: non-tender Respiratory: clear to auscultation Cardiovascular: nl pulses Gastrointestinal: non-tender, soft Musculoskeletal: nl extremities to inspection Extremities: normal pulses Neurological: nl mental status, nl speech Skin: nl turgor Lymph: nontender Results Results 24 hrs Laboratory Tests Test 10/16/16 16:58 10/16/16 20:21 10/17/16 07:14 10/17/16 11:55 Bedside Glucose 87 122 82 134 Medications Medications Current Medications Ondansetron HCl (Zofran Inj) 4 mg Q6H PRN IV NAUSEA AND/OR VOMITING; Start at 20:49 Oxycodone/ Acetaminophen (Percocet (5/ 325)) 1 tab Q6H PRN PO PAIN; Start 10/06 at 20:49 Acetaminophen (Tylenol Tab) 500 mg Q6H PRN PO PAIN AND OR ELEVATED TEMP; Start 10/06/16 at 20:49 Allopurinol (Zyloprim) 100 mg DAILY PO Last administered on 10/17/16 08:42; Admin Dose 100 MG; Start 10/06/16 at 20:49 Amlodipine Besylate (Norvasc) 5 mg DAILY PO Last administered on 10/17/16 08:44 ; Admin Dose 5 MG; Start 10/06/16 at 20:49 Eye Lubricant (Artificial Tears Oph) 2 drop QID BOTH EYES Last administered on 10/17/16 09:30; Admin Dose 2 DROP; Start 10/06/16 at 20:49 Atorvastatin Calcium (Lipitor) 10 mg QHS PO Last administered on 10/16/16 20:27 ; Admin Dose 10 MG; Start 10/06/16 at 20:49 Febuxostat (Uloric) 40 mg DAILY PO Last administered on 10/17/16 08:45; Admin Dose 40 MG; Start 10/06/16 at 20:49 Lactobacillus Acidoph/Bulgaricus (Floranex) 1 tab TID PO Last administered on 08:42; Admin Dose 1 TAB; Start 10/06/16 at 20:49 Metoprolol Tartrate (Lopressor) 100 mg BID PO Last administered on 10/17/16 08: 43; Admin Dose 100 MG; Start 10/06/16 at 20:49 Nystatin (Nystatin Susp) 5 ml TID PO Last administered on 10/17/16 09:29; Admin Dose 5 ML; Start 10/06/16 at 20:49 Pantoprazole (Protonix Tab) 40 mg DAILY@06 PO Last administered on 10/17/16 06: 28; Admin Dose 40 MG; Start 10/06/16 at 20:49 Psyllium Hydrophilic Mucilloid (Metamucil) 1 pkt DAILY PO Last administered on 10/16/16 08:42; Admin Dose 1 PKT; Start 10/06/16 at 20:49 Tamsulosin HCl (Flomax) 0.4 mg DAILY PO Last administered on 10/17/16 09:29; Admin Dose 0.4 MG; Start 10/06/16 at 20:49 Miscellaneous Information 1 ea NOTE XX ; Start 10/06/16 at 20:49 Glucose (Glutose) 15 gm Q15M PRN PO DECREASED GLUCOSE; Start 10/06/16 at 20:49 Glucose (Glutose) 22.5 gm Q15M PRN PO DECREASED GLUCOSE; Start 10/06/16 at 20: 49 Dextrose (D50w Syringe) 25 ml Q15M PRN IV DECREASED GLUCOSE; Start 10/06/16 at 20:49 Dextrose (D50w Syringe) 50 ml Q15M PRN IV DECREASED GLUCOSE; Start 10/06/16 at 20:49 Glucagon (Glucagen) 1 mg Q15M PRN IM DECREASED GLUCOSE; Start 10/06/16 at 20:49 Glucose (Glutose) 15 gm Q15M PRN BUCCAL DECREASED GLUCOSE; Start 10/06/16 at 20 :49 Colchicine (Colchicine) 0.6 mg DAILY PO Last administered on 10/17/16 08:42; Admin Dose 0.6 MG; Start 10/06/16 at 20:49 Ascorbic Acid (Vitamin C) 500 mg DAILY PO Last administered on 10/17/16 08:42; Admin Dose 500 MG; Start 10/06/16 at 20:49 Clonidine (Catapres) 0.1 mg Q12H PRN PO SBP ABOVE 160; Start 10/06/16 at 20:49 Colchicine (Colchicine) 0.6 mg DAILY PRN PO gout; Start 10/06/16 at 20:49 Ferrous Sulfate (Ferrous Sulfate (Ec)) 325 mg DAILY PO Last administered on 10/17 08:42; Admin Dose 325 MG; Start 10/06/16 at 20:49 Hydralazine HCl (Apresoline) 25 mg Q8H PRN PO SPB ABOVE 160; Start 10/06/16 at 20:49 Acetaminophen/ Hydrocodone Bitart ([place] (325)) 1 tab Q4H PRN PO PAIN Last administered on 10/16/16 11:53; Admin Dose 1 TAB; Start 10/06/16 at 20:49 Lactulose (Enulose) 20 gm Q8 PRN PO CONSTIPATION; Start 10/06/16 at 20:49 Heparin Sodium (Porcine) (Heparin (5000 Units/0.5 ml)) 5,000 unit Q12 SC Last administered on 10/17/16 08:42; Admin Dose 5,000 UNIT; Start 10/06/16 at 20:49 Hydralazine HCl (Apresoline) 10 mg Q6H PRN IV if BP > 170; Start 10/06/16 at 20 :49 Quetiapine Fumarate (Seroquel) 100 mg QHS PO Last administered on 10/16/16 20: 27; Admin Dose 100 MG; Start 10/06/16 at 20:49 Amlodipine Besylate (Norvasc) 10 mg DAILY PO Last administered on 10/17/16 08: 43; Admin Dose 10 MG; Start 10/06/16 at 20:49 Docusate Sodium (Colace) 100 mg BID PO Last administered on 10/17/16 08:42; Admin Dose 100 MG; Start 10/07/16 at 09:00 Senna (Senokot) 1 tab HS PO Last administered on 10/16/16 20:27; Admin Dose 1 TAB; Start 10/07/16 at 21:00 Bisacodyl (Dulcolax Supp) 10 mg DAILY PRN [place] CONSTIPATION; Start 10/07/16 at 03 :00 Magnesium Hydroxide (Milk Of Mag) 30 ml BID PRN PO CONSTIPATION; Start at 03:00 Diagnostic Test (Pha) (Accucheck) 1 ea 02 XX Last administered on 10/12/16 02: 07; Admin Dose 1 EA; Start 10/08/16 at 02:00 Mupirocin (Bactroban) 1 applic BID TOP Last administered on 10/17/16 09:30; Admin Dose 1 APPLIC; Start 10/08/16 at 21:00 Insulin Glargine (Lantus) 10 unit DAILY@20 SC Last administered on 10/16/16 20: 30; Admin Dose 10 UNIT; Start 10/11/16 at 22:00 Hydromorphone HCl (Dilaudid) 1 mg Q3H PRN IV PAIN Last administered on t 10:37; Admin Dose 1 MG; Start 10/15/16 at 17:00 Levofloxacin (Levaquin) 500 mg DAILY@06 PO ; Start 10/18/16 at 06:00; Status PANDA HERNANDEZ Oct 17, 2016 12:51
[2016-10-17 12:54] LABS: BASOPHILS % 1.1 % (0.0-2.0); EOSINOPHILS # 0.1 10^3/ul (0.0-0.5); EOSINOPHILS % 2.7 % (0.0-7.0); HEMATOCRIT 36.3 % (42.0-52.0); HEMOGLOBIN 12.2 g/dl (14.0-18.0); LYMPHOCYTES # 1.5 10^3/ul (0.8-2.9); LYMPHOCYTES % 40.2 % (15.0-51.0); MEAN CORPUSCULAR HEMOGLOBIN 30.3 pg (29.0-33.0); MEAN CORPUSCULAR HGB CONC 33.6 g/dl (32.0-37.0); MEAN CORPUSCULAR VOLUME 90.1 fl (82.0-101.0); MEAN PLATELET VOLUME 10.2 fl (7.4-10.4); MONOCYTE # 0.4 10^3/ul (0.3-0.9); MONOCYTES % 10.1 % (0.0-11.0); NEUTROPHIL # 1.7 10^3/ul (1.6-7.5); NEUTROPHILS % 45.6 % (39.0-77.0); PLATELET COUNT 339 10^3/UL (140-415); RED BLOOD COUNT 4.03 10^6/ul (4.70-6.10); RED CELL DISTRIBUTION WIDTH 14.3 % (11.5-14.5); WHITE BLOOD COUNT 3.7 10^3/ul (4.8-10.8)
--- NOTE | 2016-10-17 13:04 | PN ---
DATE: 10/17/2016 SUBJECTIVE: Urinary retention. The patient did have a temperature of 99.8 this morning and therefo re, I was asked to see him again and reevaluate. The patient himself is comfortable and he has no p ain. The suprapubic tube has been clamped to see if he is able to urinate on his own. The head octaviano se has been emptying it regularly. OBJECTIVE: VITAL SIGNS: Temperature now is 99.5. ABDOMEN: Soft. There is mild redness around the suprapubic tube which is a normal reaction around it. I do not think there is any infection in the tract; however, the patient could still have a uri nary tract infection. The urine that has been drained was clear. LABORATORY DATA: His last urine culture that was done on 10/11/2016 was no growth after 48 hours. IMPRESSION: Urinary retention. The patient does have a suprapubic tube and he has low grade temper ature. PLAN: To do a urine culture and Dr. Cartagena already ordered Levaquin for him and a dose of vancomy krishna and we will watch him. I talked to Dr. Osvaldo Hamilton and she is going to keep him over the weeke nd to make sure that he is all right, which is okay with me. Dictated By: FELIX ROY/GORGE Conf#: [id number] DID#: [id number]
[2016-10-17 13:06] LABS: POTASSIUM 4.2 mmol/L (3.5-5.1)
[2016-10-17 13:09] LABS: CREATININE 2.74 mg/dl (0.61-1.24); URIC ACID 4.8 mg/dl (3.1-7.9)
[2016-10-17 13:10] LABS: CALCIUM 9.8 mg/dl (8.4-10.2)
[2016-10-17] MEDS ORDERED: LEVOFLOXACIN 500 MG TAB PO SCH (14:00)
[2016-10-17] MEDS ORDERED: VANCOMYCIN 1.5 GM in SOD CHLORIDE 0.9% 250 ML IVPB SCH (14:30)
--- NOTE | 2016-10-17 16:45 | CONS ---
DATE OF ADMISSION: 10/06/2016 DATE OF CONSULTATION: 10/17/2016 TYPE OF CONSULTATION: Infectious Disease. REASON FOR CONSULTATION: Antibiotic management. HISTORY OF PRESENT ILLNESS: George Field is a 66-year-old male who was admitted on with numerous problems who is being seen now for antibiotic management. His past problems include: 1. Status post intracranial hemorrhage. 2. DISABILITY SERVICES COORDINATOR shunt placement. 3. Dysphagia, status post G-tube placement. 4. History of decubitus ulcer. 5. Carpal tunnel syndrome. 6. Nephrolithiasis. 7. Chronic renal disease. 8. Diabetes mellitus. 9. Hypertension. 10. Dysarthria. 11. Gout. 12. Status post lateral occipital craniotomy. 13. Status post cholecystectomy. 14. Status post left knee surgery with meniscal repair x2. Acutely, the patient presents with acute and/or chronic encephalopathy secondary to probable urinary tract infection. He has a chronic Potter catheter in place. He was treated for urinary tract infec tion. He was also given allopurinol and colchicine and Uloric for gouty flareups. He was therefore admitted to acute rehabilitation. THE PATIENT IS ALSO ALLERGIC TO MORPHINE SULFATE. HOSPITAL COURSE: On admission, his white count was 7.0, H and H of 11.9 and 35.2, platelet count 34 7,000. Today, white count is 3.7, BUN and creatinine 50/2.74. Urine is negative for nitrite and le ukocyte esterase. Urine cultures have been negative. The patient's temperature went up recently to 99.5. 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 Patient is on vancomycin and Levaquin at the pres ent time. The patient has a suprapubic catheter for urinary retention. The urinary tract grew out Klebsiella pneumoniae and Providencia stuartii, status post treatment. He has chronic renal disease stage III/IV, diabetes mellitus, hypertension, hyperlipidemia, gout and numerous other problems as recently outlined. He had a suprapubic catheter insertion by Dr. Fay on October 14. He has MRSA n zain colonization, status post treatment with Bactroban. PAST MEDICAL HISTORY: Operations as outlined. FAMILY HISTORY: Noncontributory. SOCIAL HISTORY: He does not smoke, drink or abuse drugs. ALLERGIES: MORPHINE. MEDICATIONS: Per chart. REVIEW OF SYSTEMS: As per HPI. PHYSICAL EXAMINATION: GENERAL: The patient is a chronically ill-appearing male who is awake, responsive, in no acute dist ress. VITAL SIGNS: Stable. He is afebrile. SKIN: Without generalized rash. HEENT: Within normal limits. NECK: Supple. LYMPH NODES: None palpable. CHEST: Decreased breath sounds at the bases. HEART: Without murmur or gallop. ABDOMEN: Soft, nontender, without organosplenomegaly or masses. G-tube is intact. EXTREMITIES: Without cyanosis, clubbing, or edema. He has a suprapubic catheter. RECTAL AND GENITAL: Deferred. NEUROLOGIC: The patient is alert and oriented at the present time, able to move all extremities. H vane has neurogenic bladder and so he has some focal neurological problems. Patient is unable to urina te on his own. His last urine C and S was negative. He is on vancomycin and Levaquin. We will con tinue him on this current therapy. I will dictate my findings to Dr. Cartagena and to Dr. Fay. Dictated By: DANIEL CORTEZ MD, JD/GORGE Conf#: [id number] DID#: [id number] CC: MORGAN RANGEL MD;*End*
[2016-10-17 20:23] VITALS: BP 138/83; RESP 19
[2016-10-17] MEDS: SENNA TAB PO SCH (21:00)
[2016-10-17] MEDS: CEFEPIME 1GM/50 ML (PMX) 50 ML IVPB SCH (21:08)
[2016-10-17] MEDS: INSULIN GLARGINE [LANtus] 3 ML PEN SC SCH (21:09)
[2016-10-17] MEDS: QUETIAPINE 100 MG TAB PO SCH (21:14)
[2016-10-17] MEDS: ATORVASTATIN 10 MG TAB PO SCH (21:14)
[2016-10-17] MEDS: SOD CHLORIDE 0.45% 1,000 ML IV SCH (22:47)
[2016-10-18] MEDS: ACCUCHECK AT 2AM (Patients on SS coverage) XX SCH (02:00)
[2016-10-18] MEDS ORDERED: LEVOFLOXACIN 500 MG TAB PO SCH (06:00)
[2016-10-18] MEDS ORDERED: LEVOFLOXACIN 250 MG TAB PO SCH (06:00)
[2016-10-18] MEDS: PANTOPRAZOLE (EC) 40 MG TAB PO SCH (06:30)
[2016-10-18 07:23] LABS: ADD SCAN DIFF NO
[2016-10-18 07:29] LABS: BASOPHIL # 0.1 10^3/ul (0.0-0.1); BASOPHILS % 1.2 % (0.0-2.0); EOSINOPHILS # 0.2 10^3/ul (0.0-0.5); HEMATOCRIT 33.5 % (42.0-52.0); LYMPHOCYTES # 1.7 10^3/ul (0.8-2.9); LYMPHOCYTES % 39.8 % (15.0-51.0); MEAN CORPUSCULAR HEMOGLOBIN 29.5 pg (29.0-33.0); MEAN CORPUSCULAR HGB CONC 32.8 g/dl (32.0-37.0); MEAN CORPUSCULAR VOLUME 89.8 fl (82.0-101.0); MEAN PLATELET VOLUME 10.2 fl (7.4-10.4); MONOCYTE # 0.6 10^3/ul (0.3-0.9); NEUTROPHIL # 1.8 10^3/ul (1.6-7.5); NEUTROPHILS % 41.8 % (39.0-77.0); PLATELET COUNT 329 10^3/UL (140-415); RED BLOOD COUNT 3.73 10^6/ul (4.70-6.10); RED CELL DISTRIBUTION WIDTH 14.2 % (11.5-14.5); WHITE BLOOD COUNT 4.2 10^3/ul (4.8-10.8)
[2016-10-18] MEDS: Insulin NOVOLOG SS MODERATE Algorithm (SS with meals and bedtime) SC SCH ×4 (07:35→21:00)
[2016-10-18 07:41] LABS: POTASSIUM 4.3 mmol/L (3.5-5.1)
[2016-10-18 07:43] LABS: CREATININE 2.62 mg/dl (0.61-1.24)
[2016-10-18 07:44] LABS: CALCIUM 9.3 mg/dl (8.4-10.2)
[2016-10-18 07:53] VITALS: BP 106/70; RESP 18
[2016-10-18] MEDS: ASCORBIC ACID 500 MG TAB PO SCH (08:48)
[2016-10-18] MEDS: NYSTATIN SUSP 5 ML CUP PO SCH ×3 (08:48→20:30)
[2016-10-18] MEDS: SOD CHLORIDE 0.45% 1,000 ML IV SCH ×2 (08:48→13:13)
[2016-10-18] MEDS: INSULIN ASPART [NOVOLOG] 3 ML PEN SC SCH ×3 (08:48→17:31)
[2016-10-18] MEDS: LACTOBACILLUS CHEW TAB PO SCH ×3 (08:48→20:30)
[2016-10-18] MEDS: FERROUS SULFATE (EC) 325 MG TAB PO SCH (08:50)
[2016-10-18] MEDS: COLCHICINE 0.6 MG TAB PO SCH (08:50)
[2016-10-18] MEDS: DOCUSATE SODIUM 100 MG CAP PO SCH ×2 (08:50→20:30)
[2016-10-18] MEDS: FEBUXOSTAT 40 MG TABLET PO SCH (08:50)
[2016-10-18] MEDS: ALLOPURINOL 100 MG TAB PO SCH (08:50)
[2016-10-18] MEDS: HEPARIN 5,000 UNIT/0.5 ML SYG SC SCH ×2 (08:51→20:34)
[2016-10-18] MEDS: TAMSULOSIN (SR) 0.4 MG CAP PO SCH (08:51)
[2016-10-18] MEDS: PSYLLIUM 28% PACKET PO SCH (08:52)
[2016-10-18] MEDS: ARTIFICIAL TEARS 15 ML OPH BOTH EYES SCH ×4 (08:52→20:29)
[2016-10-18] MEDS: MUPIROCIN 2% 22 GM OINT TOP SCH ×2 (08:53→20:30)
--- NOTE | 2016-10-18 09:06 | PN ---
DATE: 10/18/2016 SUBJECTIVE: Urinary retention and patient status post insertion of suprapubic tube. The patient di d have a low grade temperature yesterday, so he was kept in the hospital to monitor his progress. T he patient himself is comfortable and has no complaints. OBJECTIVE: VITAL SIGNS: Temperature is 97.9, blood pressure 106/70, pulse 70, and respiration is 18. ABDOMEN: Soft. The suprapubic tube is in place and is clamped. LABORATORY DATA: CBC: White count 4.2, hemoglobin 11.0, hematocrit 33.5. BUN is 51, creatinine 2. 62. His creatinine is stable from the start of his admission. The urine culture from 10/11/2016 sh owed no growth after 48 hours; however, there is a new urine culture that was ordered yesterday as w ell as the blood cultures, and all these are pending. PLAN: To keep the suprapubic tube catheter clamped, see if he does void. When he voids, measure th e volume voided and then open the suprapubic tube to check his postvoid residual. Also, if he does not void in 6 hours, open the suprapubic tube, drain the bladder, and re clamp it again and give him another chance to urinate. Dictated By: FELIX ROY/GORGE Conf#: [id number] DID#: [id number]
[2016-10-18 09:08] VITALS: BP 127/78; PULSE 65; RESP 18
--- NOTE | 2016-10-18 12:02 | CONS ---
Date/Time of Note Date/Time of Note DATE: 10/18/16 TIME: 11:59 Consult Date/Type/Reason Admit Date/Time Oct 06, 2016 at 19:58 Subjective resting comfortably Objective pulm-cta min assist transfer Vital Signs Date Time Temp Pulse Resp B/P Pulse Ox O2 Delivery O2 Flow Rate FiO2 10/18/16 09:08 98.1 65 18 127/78 95 Room Air Intake and Output 10/17/16 10/17/16 10/18/16 15:00 23:00 07:00 Intake Total 940 ml 870 ml Output Total 150 ml 400 ml 400 ml Balance -150 ml 540 ml 470 ml Results/Medications Result Diagram: 10/18/16 0630 10/18/16 0640 Results 24 hrs Laboratory Tests Test 10/17/16 12:15 10/17/16 12:17 10/17/16 17:40 10/17/16 20:51 Anion Gap 21 H Blood Urea Nitrogen 50 H Calcium Level 9.8 Carbon Dioxide Level 17 L Chloride Level 108 Creatinine 2.74 H Glucose Level 133 Potassium Level 4.2 Sodium Level 142 Uric Acid 4.8 Basophils # 0.0 Basophils % 1.1 Eosinophils # 0.1 Eosinophils % 2.7 Hematocrit 36.3 L Hemoglobin 12.2 L Lymphocytes # 1.5 Lymphocytes % 40.2 Mean Corpuscular Hemoglobin 30.3 Mean Corpuscular Hemoglobin Concent 33.6 Mean Corpuscular Volume 90.1 Mean Platelet Volume 10.2 Monocytes # 0.4 Monocytes % 10.1 Neutrophils # 1.7 Neutrophils % 45.6 Nucleated Red Blood Cells # 0.0 Nucleated Red Blood Cells % 0.0 Platelet Count 339 Red Blood Count 4.03 L Red Cell Distribution Width 14.3 White Blood Count 3.7 #L Bedside Glucose 106 111 Test 10/18/16 06:30 10/18/16 06:40 10/18/16 07:27 Basophils # 0.1 Basophils % 1.2 Eosinophils # 0.2 Eosinophils % 4.0 Hematocrit 33.5 L Hemoglobin 11.0 L Lymphocytes # 1.7 Lymphocytes % 39.8 Mean Corpuscular Hemoglobin 29.5 Mean Corpuscular Hemoglobin Concent 32.8 Mean Corpuscular Volume 89.8 Mean Platelet Volume 10.2 Monocytes # 0.6 Monocytes % 13.0 H Neutrophils # 1.8 Neutrophils % 41.8 Nucleated Red Blood Cells # 0.0 Nucleated Red Blood Cells % 0.0 Platelet Count 329 Red Blood Count 3.73 L Red Cell Distribution Width 14.2 White Blood Count 4.2 L Anion Gap 20 H Blood Urea Nitrogen 51 H Calcium Level 9.3 Carbon Dioxide Level 18 L Chloride Level 111 H Creatinine 2.62 H Glucose Level 88 # Potassium Level 4.3 Sodium Level 145 H Bedside Glucose 89 Medications Current Medications Ondansetron HCl (Zofran Inj) 4 mg Q6H PRN IV NAUSEA AND/OR VOMITING; Start at 20:49 Oxycodone/ Acetaminophen (Percocet (5/ 325)) 1 tab Q6H PRN PO PAIN; Start 10/06 at 20:49 Acetaminophen (Tylenol Tab) 500 mg Q6H PRN PO PAIN AND OR ELEVATED TEMP; Start 10/06/16 at 20:49 Allopurinol (Zyloprim) 100 mg DAILY PO Last administered on 10/18/16 08:50; Admin Dose 100 MG; Start 10/06/16 at 20:49 Amlodipine Besylate (Norvasc) 5 mg DAILY PO Last administered on 10/17/16 08:44 ; Admin Dose 5 MG; Start 10/06/16 at 20:49 Eye Lubricant (Artificial Tears Oph) 2 drop QID BOTH EYES Last administered on 10/18/16 08:52; Admin Dose 2 DROP; Start 10/06/16 at 20:49 Atorvastatin Calcium (Lipitor) 10 mg QHS PO Last administered on 10/17/16 21:14 ; Admin Dose 10 MG; Start 10/06/16 at 20:49 Febuxostat (Uloric) 40 mg DAILY PO Last administered on 10/18/16 08:50; Admin Dose 40 MG; Start 10/06/16 at 20:49 Lactobacillus Acidoph/Bulgaricus (Floranex) 1 tab TID PO Last administered on 08:48; Admin Dose 1 TAB; Start 10/06/16 at 20:49 Metoprolol Tartrate (Lopressor) 100 mg BID PO Last administered on 10/17/16 21: 21; Admin Dose 100 MG; Start 10/06/16 at 20:49 Nystatin (Nystatin Susp) 5 ml TID PO Last administered on 10/18/16 08:48; Admin Dose 5 ML; Start 10/06/16 at 20:49 Pantoprazole (Protonix Tab) 40 mg DAILY@06 PO Last administered on 10/18/16 06 :30; Admin Dose 40 MG; Start 10/06/16 at 20:49 Psyllium Hydrophilic Mucilloid (Metamucil) 1 pkt DAILY PO Last administered on 10/16/16 08:42; Admin Dose 1 PKT; Start 10/06/16 at 20:49 Tamsulosin HCl (Flomax) 0.4 mg DAILY PO Last administered on 10/18/16 08:51; Admin Dose 0.4 MG; Start 10/06/16 at 20:49 Miscellaneous Information 1 ea NOTE XX ; Start 10/06/16 at 20:49 Glucose (Glutose) 15 gm Q15M PRN PO DECREASED GLUCOSE; Start 10/06/16 at 20:49 Glucose (Glutose) 22.5 gm Q15M PRN PO DECREASED GLUCOSE; Start 10/06/16 at 20: 49 Dextrose (D50w Syringe) 25 ml Q15M PRN IV DECREASED GLUCOSE; Start 10/06/16 at 20:49 Dextrose (D50w Syringe) 50 ml Q15M PRN IV DECREASED GLUCOSE; Start 10/06/16 at 20:49 Glucagon (Glucagen) 1 mg Q15M PRN IM DECREASED GLUCOSE; Start 10/06/16 at 20:49 Glucose (Glutose) 15 gm Q15M PRN BUCCAL DECREASED GLUCOSE; Start 10/06/16 at 20 :49 Colchicine (Colchicine) 0.6 mg DAILY PO Last administered on 10/18/16 08:50; Admin Dose 0.6 MG; Start 10/06/16 at 20:49 Ascorbic Acid (Vitamin C) 500 mg DAILY PO Last administered on 10/18/16 08:48 ; Admin Dose 500 MG; Start 10/06/16 at 20:49 Clonidine (Catapres) 0.1 mg Q12H PRN PO SBP ABOVE 160; Start 10/06/16 at 20:49 Colchicine (Colchicine) 0.6 mg DAILY PRN PO gout; Start 10/06/16 at 20:49 Ferrous Sulfate (Ferrous Sulfate (Ec)) 325 mg DAILY PO Last administered on 08:50; Admin Dose 325 MG; Start 10/06/16 at 20:49 Hydralazine HCl (Apresoline) 25 mg Q8H PRN PO SPB ABOVE 160; Start 10/06/16 at 20:49 Acetaminophen/ Hydrocodone Bitart ([place] (10325)) 1 tab Q4H PRN PO PAIN Last administered on 10/16/16 11:53; Admin Dose 1 TAB; Start 10/06/16 at 20:49 Lactulose (Enulose) 20 gm Q8 PRN PO CONSTIPATION; Start 10/06/16 at 20:49 Heparin Sodium (Porcine) (Heparin (5000 Units/0.5 ml)) 5,000 unit Q12 SC Last administered on 10/18/16 08:51; Admin Dose 5,000 UNIT; Start 10/06/16 at 20:49 Hydralazine HCl (Apresoline) 10 mg Q6H PRN IV if BP > 170; Start 10/06/16 at 20 :49 Quetiapine Fumarate (Seroquel) 100 mg QHS PO Last administered on 10/17/16 21: 14; Admin Dose 100 MG; Start 10/06/16 at 20:49 Amlodipine Besylate (Norvasc) 10 mg DAILY PO Last administered on 10/17/16 08: 43; Admin Dose 10 MG; Start 10/06/16 at 20:49 Docusate Sodium (Colace) 100 mg BID PO Last administered on 10/17/16 08:42; Admin Dose 100 MG; Start 10/07/16 at 09:00 Senna (Senokot) 1 tab HS PO Last administered on 10/16/16 20:27; Admin Dose 1 TAB; Start 10/07/16 at 21:00 Bisacodyl (Dulcolax Supp) 10 mg DAILY PRN IN CONSTIPATION; Start 10/07/16 at 03 :00 Magnesium Hydroxide (Milk Of Mag) 30 ml BID PRN PO CONSTIPATION; Start at 03:00 Diagnostic Test (Pha) (Accucheck) 1 ea 02 XX Last administered on 10/12/16 02: 07; Admin Dose 1 EA; Start 10/08/16 at 02:00 Mupirocin (Bactroban) 1 applic BID TOP Last administered on 10/18/16 08:53; Admin Dose 1 APPLIC; Start 10/08/16 at 21:00 Insulin Glargine (Lantus) 10 unit DAILY@20 SC Last administered on 10/17/16 21: 09; Admin Dose 10 UNIT; Start 10/11/16 at 22:00 Hydromorphone HCl 1 mg 1 mg Q3H PRN IV PAIN Last administered on 10/17/16 18:44 ; Admin Dose 1 MG; Start 10/15/16 at 17:00 Cefepime HCl 50 ml @ 100 mls/hr Q24H IVPB Last administered on 10/17/16 21:08 ; Admin Dose 100 MLS/HR; Start 10/17/16 at 20:00 Sodium Chloride (1/2 NS) 1,000 ml @ 70 mls/hr [id number] IV Last administered on 10/17/16 22:47; Admin Dose 70 MLS/HR; Start 10/17/16 at 18:30 Assessment/Plan Additional Assessment/Plan Rehab- acute enceph/h.o. CVA Continue rehab as tolerated GI- gtube in place. Patient meeting nutritional needs by mouth, family requesting that Gtube be removed as outpatient -followed closely by urology ID- continue antibiotics A/CKI HTN BPH Hyperlipid MORGAN RANGEL MD Oct 18, 2016 12:02
--- NOTE | 2016-10-18 12:40 | PN ---
DATE: 10/18/2016 SUBJECTIVE: No events overnight. No fevers. The patient is lying comfortably in bed. LABORATORY DATA: WBC 4.2, no shift, no bands. BUN 51, creatinine 2.62. MICROBIOLOGY: Urine culture remain negative. Nares swab positive for MRSA on 10/06/2016. ANTIMICROBIALS: The patient is on: 1. Cefepime. 2. Status post vancomycin. 3. Levaquin. INDWELLINGS: Suprapubic catheter. PHYSICAL EXAMINATION: GENERAL: Well-developed elderly man who is in no distress. HEENT: Head atraumatic, normocephalic. Sclerae anicteric. Buccal mucosa dry. NECK: Supple, trachea midline. CHEST: Rise symmetrical. Breath sounds diminished at the bases. HEART: S1, S2. ABDOMEN: Soft, bowel tones present. EXTREMITIES: Without cyanosis. ASSESSMENT: 1. Systemic inflammatory response syndrome, status post fevers. 2. Possible urinary tract infection. 3. Urinary retention, status post suprapubic catheter placement. 4. Encephalopathy. 5. Diabetes. PLAN: The patient remains stable, awaiting for cultures. Continue present care, antibiotics. Foll maynor urology recommendations. Dictated By: ANGI ZEPEDA CLOTH GRADER SUPERVISOR for DANIEL HAYES/GORGE Conf#: [id number] DID#: [id number]
[2016-10-18 13:07] VITALS: BP 125/78; PULSE 75; RESP 18
[2016-10-18] MEDS: AMLODIPINE 10 MG TAB PO SCH (13:11)
[2016-10-18] MEDS: AMLODIPINE 5 MG TAB PO SCH (13:12)
--- NOTE | 2016-10-18 13:15 | PN ---
Date/Time of Note Date/Time of Note DATE: 10/18/16 TIME: 13:09 Assessment/Plan VTE Prophylaxis VTE Prophylaxis Intervention: SCD's Lines/Catheters IV [facility]ter [facility]from [facility] [place] Urinary Cath still in place: Yes (SUPRAPUBIC CATHETER) Reason Cath still needed: urinary retention Assessment/Plan Chief Complaint/Hosp Course ASSESSMENT AND PLAN: 1. Acute encephalopathy, resolved. 2. Urinary tract infection with cultures positive for Klebsiella pneumoniae and Providencia stuartii, s/p treatment. 3. Chronic kidney disease stage III/IV. Continue to monitor BUN and creatinine. Avoid nephrotoxic medication. 4. Diabetes mellitus. Continue NovoLog per sliding scale. 5. Hypertension. Continue Norvasc and Lopressor. 7. Hyperlipidemia. Continue Lipitor. 8. Gout. Continue patient on allopurinol, colchicine and Uloric. 9. History of intracranial hemorrhage and history of ventriculoperitoneal shunt. 10. Neurogenic bladder and urinary retention, S/p suprapubic catheter insertion today by Dr Fay, urology on 10/14. 11. 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 Continue heparin for deep venous thrombosis prophylaxis. Further recommendations based on clinical course. Plan of care discussed with Dr. Cartagena. Problems: Subjective 24 Hr Interval Summary Free Text/Dictation Patient had a low-grade temperature and periods of confusion, pancultured cultures are negative so far, continue on empiric antibiotics. Currently patient denies any fever, denies any pain. Patient is currently undergoing a voiding trial and monitoring of postvoid residual. Exam/Review of Systems Vital Signs Vitals Vital Signs Date Time Temp Pulse Resp B/P Pulse Ox O2 Delivery O2 Flow Rate FiO2 10/18/16 13:07 97.8 75 18 125/78 99 Room Air Intake and Output 10/17/16 10/17/16 10/18/16 15:00 23:00 07:00 Intake Total 940 ml 870 ml Output Total 150 ml 400 ml 400 ml Balance -150 ml 540 ml 470 ml Exam GENERAL: Well-developed, well-nourished gentleman. No acute distress. HEENT: Head is atraumatic, normocephalic. Pupils equally round, reactive to light and accommodation. NECK: Supple. No cervical lymphadenopathy, no thyromegaly. CHEST: Lungs clear bilaterally. There are no rhonchi, wheezes, rales noted. CARDIOVASCULAR: Normal S1, S2. No murmurs, gallops, clicks, rubs noted. ABDOMEN: Round, soft, nondistended, nontender. Bowel sounds present. The patient has a G-tube with intact stoma. EXTREMITIES: No edema, clubbing, cyanosis. GENITOURINARY: Suprapubic catheter. SKIN: No rash, petechiae noted. NEUROLOGIC: The patient is awake, alert and oriented x3. Results Result Diagram: 10/18/16 0630 10/18/16 0640 Results 24 hrs Laboratory Tests Test 10/17/16 17:40 10/17/16 20:51 10/18/16 06:30 10/18/16 06:40 Bedside Glucose 106 111 Basophils # 0.1 Basophils % 1.2 Eosinophils # 0.2 Eosinophils % 4.0 Hematocrit 33.5 L Hemoglobin 11.0 L Lymphocytes # 1.7 Lymphocytes % 39.8 Mean Corpuscular Hemoglobin 29.5 Mean Corpuscular Hemoglobin Concent 32.8 Mean Corpuscular Volume 89.8 Mean Platelet Volume 10.2 Monocytes # 0.6 Monocytes % 13.0 H Neutrophils # 1.8 Neutrophils % 41.8 Nucleated Red Blood Cells # 0.0 Nucleated Red Blood Cells % 0.0 Platelet Count 329 Red Blood Count 3.73 L Red Cell Distribution Width 14.2 White Blood Count 4.2 L Anion Gap 20 H Blood Urea Nitrogen 51 H Calcium Level 9.3 Carbon Dioxide Level 18 L Chloride Level 111 H Creatinine 2.62 H Glucose Level 88 # Potassium Level 4.3 Sodium Level 145 H Test 10/18/16 07:27 10/18/16 12:08 Bedside Glucose 89 94 Medications Medications Current Medications Ondansetron HCl (Zofran Inj) 4 mg Q6H PRN IV NAUSEA AND/OR VOMITING; Start at 20:49 Oxycodone/ Acetaminophen (Percocet (5/ 325)) 1 tab Q6H PRN PO PAIN; Start 10/06 at 20:49 Acetaminophen (Tylenol Tab) 500 mg Q6H PRN PO PAIN AND OR ELEVATED TEMP; Start 10/06/16 at 20:49 Allopurinol (Zyloprim) 100 mg DAILY PO Last administered on 10/18/16t 08:50; Admin Dose 100 MG; Start 10/06/16 at 20:49 Amlodipine Besylate (Norvasc) 5 mg DAILY PO Last administered on 10/17/16 08:44 ; Admin Dose 5 MG; Start 10/06/16 at 20:49 Eye Lubricant (Artificial Tears Oph) 2 drop QID BOTH EYES Last administered on 10/18/16 08:52; Admin Dose 2 DROP; Start 10/06/16 at 20:49 Atorvastatin Calcium (Lipitor) 10 mg QHS PO Last administered on 10/17/16 21:14 ; Admin Dose 10 MG; Start 10/06/16 at 20:49 Febuxostat (Uloric) 40 mg DAILY PO Last administered on 10/18/16 08:50; Admin Dose 40 MG; Start 10/06/16 at 20:49 Lactobacillus Acidoph/Bulgaricus (Floranex) 1 tab TID PO Last administered on 08:48; Admin Dose 1 TAB; Start 10/06/16 at 20:49 Metoprolol Tartrate (Lopressor) 100 mg BID PO Last administered on 10/17/16 21: 21; Admin Dose 100 MG; Start 10/06/16 at 20:49 Nystatin (Nystatin Susp) 5 ml TID PO Last administered on 10/18/16 08:48; Admin Dose 5 ML; Start 10/06/16 at 20:49 Pantoprazole (Protonix Tab) 40 mg DAILY@06 PO Last administered on 10/18/16 06 :30; Admin Dose 40 MG; Start 10/06/16 at 20:49 Psyllium Hydrophilic Mucilloid (Metamucil) 1 pkt DAILY PO Last administered on 10/16/16 08:42; Admin Dose 1 PKT; Start 10/06/16 at 20:49 Tamsulosin HCl (Flomax) 0.4 mg DAILY PO Last administered on 10/18/16 08:51; Admin Dose 0.4 MG; Start 10/06/16 at 20:49 Miscellaneous Information 1 ea NOTE XX ; Start 10/06/16 at 20:49 Glucose (Glutose) 15 gm Q15M PRN PO DECREASED GLUCOSE; Start 10/06/16 at 20:49 Glucose (Glutose) 22.5 gm Q15M PRN PO DECREASED GLUCOSE; Start 10/06/16 at 20: 49 Dextrose (D50w Syringe) 25 ml Q15M PRN IV DECREASED GLUCOSE; Start 10/06/16 at 20:49 Dextrose (D50w Syringe) 50 ml Q15M PRN IV DECREASED GLUCOSE; Start 10/06/16 at 20:49 Glucagon (Glucagen) 1 mg Q15M PRN IM DECREASED GLUCOSE; Start 10/06/16 at 20:49 Glucose (Glutose) 15 gm Q15M PRN BUCCAL DECREASED GLUCOSE; Start 10/06/16 at 20 :49 Colchicine (Colchicine) 0.6 mg DAILY PO Last administered on 10/18/16 08:50; Admin Dose 0.6 MG; Start 10/06/16 at 20:49 Ascorbic Acid (Vitamin C) 500 mg DAILY PO Last administered on 10/18/16 08:48 ; Admin Dose 500 MG; Start 10/06/16 at 20:49 Clonidine (Catapres) 0.1 mg Q12H PRN PO SBP ABOVE 160; Start 10/06/16 at 20:49 Colchicine (Colchicine) 0.6 mg DAILY PRN PO gout; Start 10/06/16 at 20:49 Ferrous Sulfate (Ferrous Sulfate (Ec)) 325 mg DAILY PO Last administered on 08:50; Admin Dose 325 MG; Start 10/06/16 at 20:49 Hydralazine HCl (Apresoline) 25 mg Q8H PRN PO SPB ABOVE 160; Start 10/06/16 at 20:49 Acetaminophen/ Hydrocodone Bitart ([place] (10/325)) 1 tab Q4H PRN PO PAIN Last administered on 10/16/16 11:53; Admin Dose 1 TAB; Start 10/06/16 at 20:49 Lactulose (Enulose) 20 gm Q8 PRN PO CONSTIPATION; Start 10/06/16 at 20:49 Heparin Sodium (Porcine) (Heparin (5000 Units/0.5 ml)) 5,000 unit Q12 SC Last administered on 10/18/16 08:51; Admin Dose 5,000 UNIT; Start 10/06/16 at 20:49 Hydralazine HCl (Apresoline) 10 mg Q6H PRN IV if BP > 170; Start 10/06/16 at 20 :49 Quetiapine Fumarate (Seroquel) 100 mg QHS PO Last administered on 10/17/16 21: 14; Admin Dose 100 MG; Start 10/06/16 at 20:49 Amlodipine Besylate (Norvasc) 10 mg DAILY PO Last administered on 10/17/16 08: 43; Admin Dose 10 MG; Start 10/06/16 at 20:49 Docusate Sodium (Colace) 100 mg BID PO Last administered on 10/17/16 08:42; Admin Dose 100 MG; Start 10/07/16 at 09:00 Senna (Senokot) 1 tab HS PO Last administered on 10/16/16 20:27; Admin Dose 1 TAB; Start 10/07/16 at 21:00 Bisacodyl (Dulcolax Supp) 10 mg DAILY PRN [place] CONSTIPATION; Start 10/07/16 at 03 :00 Magnesium Hydroxide (Milk Of Mag) 30 ml BID PRN PO CONSTIPATION; Start at 03:00 Diagnostic Test (Pha) (Accucheck) 1 ea 02 XX Last administered on 10/12/16 02: 07; Admin Dose 1 EA; Start 10/08/16 at 02:00 Mupirocin (Bactroban) 1 applic BID TOP Last administered on 10/18/16 08:53; Admin Dose 1 APPLIC; Start 10/08/16 at 21:00 Insulin Glargine (Lantus) 10 unit DAILY@20 SC Last administered on 10/17/16 21: 09; Admin Dose 10 UNIT; Start 10/11/16 at 22:00 Hydromorphone HCl 1 mg 1 mg Q3H PRN IV PAIN Last administered on 10/17/16 18:44 ; Admin Dose 1 MG; Start 10/15/16 at 17:00 Cefepime HCl 50 ml @ 100 mls/hr Q24H IVPB Last administered on 10/17/16 21:08 ; Admin Dose 100 MLS/HR; Start 10/17/16 at 20:00 Sodium Chloride (1/2 NS) 1,000 ml @ 70 mls/hr [id number] IV Last administered on 10/17/16 22:47; Admin Dose 70 MLS/HR; Start 10/17/16 at 18:30 MARIA ANTONIA GERMAN Oct 18, 2016 13:14
[2016-10-18] MEDS: METOPROLOL 100 MG TAB PO SCH ×2 (13:19→20:33)
[2016-10-18] MEDS ORDERED: VANCOMYCIN 750 MG in SOD CHLORIDE 0.9% 150 ML IVPB SCH (14:00)
[2016-10-18 20:03] VITALS: BP 127/65; RESP 18
[2016-10-18] MEDS: CEFEPIME 1GM/50 ML (PMX) 50 ML IVPB SCH (20:22)
[2016-10-18] MEDS: INSULIN GLARGINE [LANtus] 3 ML PEN SC SCH (20:27)
[2016-10-18] MEDS: ATORVASTATIN 10 MG TAB PO SCH (20:30)
[2016-10-18] MEDS: QUETIAPINE 100 MG TAB PO SCH (20:31)
[2016-10-18] MEDS: SENNA TAB PO SCH (20:33)
[2016-10-19] MEDS: ACCUCHECK AT 2AM (Patients on SS coverage) XX SCH (02:00)
[2016-10-19] MEDS: SOD CHLORIDE 0.45% 1,000 ML IV SCH ×3 (05:16→23:41)
[2016-10-19] MEDS: PANTOPRAZOLE (EC) 40 MG TAB PO SCH (05:16)
[2016-10-19 08:00] VITALS: BP 126/74; PULSE 62; RESP 18
[2016-10-19] MEDS: INSULIN ASPART [NOVOLOG] 3 ML PEN SC SCH ×3 (09:25→17:40)
[2016-10-19] MEDS: HEPARIN 5,000 UNIT/0.5 ML SYG SC SCH ×2 (09:26→20:44)
[2016-10-19] MEDS: ALLOPURINOL 100 MG TAB PO SCH (09:28)
[2016-10-19] MEDS: AMLODIPINE 5 MG TAB PO SCH (09:28)
[2016-10-19] MEDS: LACTOBACILLUS CHEW TAB PO SCH ×3 (09:29→20:37)
[2016-10-19] MEDS: NYSTATIN SUSP 5 ML CUP PO SCH ×3 (09:29→20:36)
[2016-10-19] MEDS: DOCUSATE SODIUM 100 MG CAP PO SCH ×2 (09:29→20:37)
[2016-10-19] MEDS: ASCORBIC ACID 500 MG TAB PO SCH (09:29)
[2016-10-19] MEDS: METOPROLOL 100 MG TAB PO SCH ×2 (09:29→20:37)
[2016-10-19] MEDS: AMLODIPINE 10 MG TAB PO SCH (09:29)
[2016-10-19] MEDS: FERROUS SULFATE (EC) 325 MG TAB PO SCH (09:29)
[2016-10-19] MEDS: COLCHICINE 0.6 MG TAB PO SCH (09:29)
[2016-10-19] MEDS: TAMSULOSIN (SR) 0.4 MG CAP PO SCH (09:29)
[2016-10-19] MEDS: FEBUXOSTAT 40 MG TABLET PO SCH (09:29)
[2016-10-19] MEDS: Insulin NOVOLOG SS MODERATE Algorithm (SS with meals and bedtime) SC SCH ×4 (09:30→20:45)
[2016-10-19] MEDS: ARTIFICIAL TEARS 15 ML OPH BOTH EYES SCH ×4 (09:33→20:36)
[2016-10-19] MEDS: MUPIROCIN 2% 22 GM OINT TOP SCH ×2 (09:34→20:45)
[2016-10-19] MEDS: PSYLLIUM 28% PACKET PO SCH (10:04)
--- NOTE | 2016-10-19 10:55 | PN ---
Date/Time of Note Date/Time of Note DATE: 10/19/16 TIME: 10:38 Assessment/Plan VTE Prophylaxis VTE Prophylaxis Intervention: heparin Lines/Catheters IV Catheter Type (from Nrsg): Peripheral IV Urinary Cath still in place: Yes (supra pubic catheter) Reason Cath still needed: urinary retention Assessment/Plan Assessment/Plan 1. Acute encephalopathy with impaired cognition, also with impaired mobility/ gait/ADLs. Continue PT/OT/ST. Bed mobility and transfers stand by assist, contact guard assistance for gait. 2. 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 3. Status post G tube placement for dysphagia. Continue G tube care. Continue to monitor PO intake. 4. Neurogenic bladder/urinary retention s/p suprapubic catheter. Continue management per urology, continue to monitor PVRs. 5. SIRS, s/p fevers. ID following, on antibiotics. Cultures no growth to date. 6. COLLIN on CKD. Continue to monitor renal function. Avoid nephrotoxic agents. Managed per internal medicine. 7. HTN. BP controlled. Internal medicine managing. 8. Hyperlipidemia. Continue statin. 9. DM. Blood sugars controlled, continue insulin regimen. Subjective 24 Hr Interval Summary Free Text/Dictation Rehab progress note Subjective: Patient reports headache earlier this morning. Denies any other associated symptoms. ROS: Denies new visual changes, no dizziness, no new weakness or new paresthesias. No chest pain, no shortness of breath, no abdominal pain, no nausea, no vomiting. Exam/Review of Systems Vital Signs Vitals Vital Signs Date Time Temp Pulse Resp B/P Pulse Ox O2 Delivery O2 Flow Rate FiO2 10/18/16 20:03 98.2 61 18 127/65 97 10/18/16 13:07 Room Air Intake and Output 10/18/16 10/18/16 10/19/16 15:00 23:00 07:00 Intake Total 1650 ml 590 ml 940 ml Output Total 150 ml 400 ml Balance 1650 ml 440 ml 540 ml Exam General: Awake, alert, no acute distress CV: Regular rate, s1s2 Lungs: Symmetrical air entry bilaterally, no wheezing Abdomen/: Soft, nontender, +G tube in place, +Suprapubic cath Extremities: No cyanosis, no edema Neuro: Follows simple commands. Antigravity strength present BUE/BLE. Results Result Diagram: 10/18/16 0630 10/18/16 0640 Results 24 hrs Laboratory Tests Test 10/18/16 12:08 10/18/16 16:53 10/18/16 20:24 10/19/16 07:49 Bedside Glucose 94 99 108 92 Medications Medications Current Medications Ondansetron HCl (Zofran Inj) 4 mg Q6H PRN IV NAUSEA AND/OR VOMITING; Start at 20:49 Oxycodone/ Acetaminophen (Percocet (5/ 325)) 1 tab Q6H PRN PO PAIN; Start 10/06 at 20:49 Acetaminophen (Tylenol Tab) 500 mg Q6H PRN PO PAIN AND OR ELEVATED TEMP; Start 10/06/16 at 20:49 Allopurinol (Zyloprim) 100 mg DAILY PO Last administered on 10/19/16 09:28; Admin Dose 100 MG; Start 10/06/16 at 20:49 Amlodipine Besylate (Norvasc) 5 mg DAILY PO Last administered on 10/19/16 09: 28; Admin Dose 5 MG; Start 10/06/16 at 20:49 Eye Lubricant (Artificial Tears Oph) 2 drop QID BOTH EYES Last administered on 10/19/16 09:33; Admin Dose 2 DROP; Start 10/06/16 at 20:49 Atorvastatin Calcium (Lipitor) 10 mg QHS PO Last administered on 10/18/16 20: 30; Admin Dose 10 MG; Start 10/06/16 at 20:49 Febuxostat (Uloric) 40 mg DAILY PO Last administered on 10/19/16 09:29; Admin Dose 40 MG; Start 10/06/16 at 20:49 Lactobacillus Acidoph/Bulgaricus (Floranex) 1 tab TID PO Last administered on 09:29; Admin Dose 1 TAB; Start 10/06/16 at 20:49 Metoprolol Tartrate (Lopressor) 100 mg BID PO Last administered on 10/19/16 09 :29; Admin Dose 100 MG; Start 10/06/16 at 20:49 Nystatin (Nystatin Susp) 5 ml TID PO Last administered on 10/19/16 09:29; Admin Dose 5 ML; Start 10/06/16 at 20:49 Pantoprazole (Protonix Tab) 40 mg DAILY@06 PO Last administered on 10/19/16 05 :16; Admin Dose 40 MG; Start 10/06/16 at 20:49 Psyllium Hydrophilic Mucilloid (Metamucil) 1 pkt DAILY PO Last administered on 10/19/16 10:04; Admin Dose 1 PKT; Start 10/06/16 at 20:49 Tamsulosin HCl (Flomax) 0.4 mg DAILY PO Last administered on 10/19/16 09:29; Admin Dose 0.4 MG; Start 10/06/16 at 20:49 Miscellaneous Information 1 ea NOTE XX ; Start 10/06/16 at 20:49 Glucose (Glutose) 15 gm Q15M PRN PO DECREASED GLUCOSE; Start 10/06/16 at 20:49 Glucose (Glutose) 22.5 gm Q15M PRN PO DECREASED GLUCOSE; Start 10/06/16 at 20: 49 Dextrose (D50w Syringe) 25 ml Q15M PRN IV DECREASED GLUCOSE; Start 10/06/16 at 20:49 Dextrose (D50w Syringe) 50 ml Q15M PRN IV DECREASED GLUCOSE; Start 10/06/16 at 20:49 Glucagon (Glucagen) 1 mg Q15M PRN IM DECREASED GLUCOSE; Start 10/06/16 at 20:49 Glucose (Glutose) 15 gm Q15M PRN BUCCAL DECREASED GLUCOSE; Start 10/06/16 at 20 :49 Colchicine (Colchicine) 0.6 mg DAILY PO Last administered on 10/19/16 09:29; Admin Dose 0.6 MG; Start 10/06/16 at 20:49 Ascorbic Acid (Vitamin C) 500 mg DAILY PO Last administered on 10/19/16 09:29 ; Admin Dose 500 MG; Start 10/06/16 at 20:49 Clonidine (Catapres) 0.1 mg Q12H PRN PO SBP ABOVE 160; Start 10/06/16 at 20:49 Colchicine (Colchicine) 0.6 mg DAILY PRN PO gout; Start 10/06/16 at 20:49 Ferrous Sulfate (Ferrous Sulfate (Ec)) 325 mg DAILY PO Last administered on 09:29; Admin Dose 325 MG; Start 10/06/16 at 20:49 Hydralazine HCl (Apresoline) 25 mg Q8H PRN PO SPB ABOVE 160; Start 10/06/16 at 20:49 Acetaminophen/ Hydrocodone Bitart ([place] ()) 1 tab Q4H PRN PO PAIN Last administered on 10/16/16 11:53; Admin Dose 1 TAB; Start 10/06/16 at 20:49 Lactulose (Enulose) 20 gm Q8 PRN PO CONSTIPATION; Start 10/06/16 at 20:49 Heparin Sodium (Porcine) (Heparin (5000 Units/0.5 ml)) 5,000 unit Q12 SC Last administered on 10/19/16 09:26; Admin Dose 5,000 UNIT; Start 10/06/16 at 20:49 Hydralazine HCl (Apresoline) 10 mg Q6H PRN IV if BP > 170; Start 10/06/16 at 20 :49 Quetiapine Fumarate (Seroquel) 100 mg QHS PO Last administered on 10/18/16 20: 31; Admin Dose 100 MG; Start 10/06/16 at 20:49 Amlodipine Besylate (Norvasc) 10 mg DAILY PO Last administered on 10/19/16 09: 29; Admin Dose 10 MG; Start 10/06/16 at 20:49 Docusate Sodium (Colace) 100 mg BID PO Last administered on 10/19/16 09:29; Admin Dose 100 MG; Start 10/07/16 at 09:00 Senna (Senokot) 1 tab HS PO Last administered on 10/18/16 20:33; Admin Dose 1 TAB; Start 10/07/16 at 21:00 Bisacodyl (Dulcolax Supp) 10 mg DAILY PRN [place] CONSTIPATION; Start 10/07/16 at 03 :00 Magnesium Hydroxide (Milk Of Mag) 30 ml BID PRN PO CONSTIPATION; Start at 03:00 Diagnostic Test (Pha) (Accucheck) 1 ea 02 XX Last administered on 10/12/16 02: 07; Admin Dose 1 EA; Start 10/08/16 at 02:00 Mupirocin (Bactroban) 1 applic BID TOP Last administered on 10/19/16 09:34; Admin Dose 1 APPLIC; Start 10/08/16 at 21:00 Insulin Glargine (Lantus) 10 unit DAILY@20 SC Last administered on 10/18/16 20 :27; Admin Dose 10 UNIT; Start 10/11/16 at 22:00 Hydromorphone HCl 1 mg 1 mg Q3H PRN IV PAIN Last administered on 10/17/16 18:44 ; Admin Dose 1 MG; Start 10/15/16 at 17:00 Cefepime HCl 50 ml @ 100 mls/hr Q24H IVPB Last administered on 10/18/16 20:22 ; Admin Dose 100 MLS/HR; Start 10/17/16 at 20:00 Sodium Chloride (1/2 NS) 1,000 ml @ 70 mls/hr [id number] IV Last administered on 10/19/16 05:16; Admin Dose 70 MLS/HR; Start 10/17/16 at 18:30 NEDRA MURRAY Oct 19, 2016 10:48
--- NOTE | 2016-10-19 14:02 | PN ---
DATE: 10/19/2016 SUBJECTIVE: Urinary retention. The patient had a suprapubic tube placed after removing his Potter c atheter. The suprapubic tube was clamped yesterday. The patient has been voiding and he voids abou t between 100 to 200 mL each time. The postvoid residual by opening the suprapubic tube is about al so 100 to 150 mL. OBJECTIVE VITAL SIGNS: His temperature is 97.8, blood pressure 126/74, the pulse is 62, respiration 18. ABDOMEN: Soft. The suprapubic tube is in place and is clamped. I brought a catheter plug and plu gged it with a catheter plug, so it does not have to be connected to a drainage bag, and the nurses were shown how to do that. LABORATORY DATA: Last urine culture from 2 days ago, no growth after 48 hours. CBC shows a white co unt of 4.2, hemoglobin 11.0, hematocrit 33.5, the BUN is 51, creatinine 2.62. IMPRESSION: Urinary retention. The patient now is able to urinate, but he still has over 100 mL of postvoid residual. Recommendation is to continue to monitor his voiding and his postvoid residual by opening the suprapubic tube and we will also have to teach him how to do that, so when he goes ho me, he will continue to open the suprapubic tube to drain his postvoid residual. Dictated By: FELIX ROY/GORGE Conf#: [id number] DID#: [id number]
--- NOTE | 2016-10-19 16:54 | PN ---
Date/Time of Note Date/Time of Note DATE: 10/19/16 TIME: 16:53 Assessment/Plan VTE Prophylaxis VTE Prophylaxis Intervention: heparin Lines/Catheters IV Catheter Type (from [facility]): [place] Urinary Cath still in place: Yes (supra pubic catheter) Assessment/Plan Assessment/Plan 1. Acute encephalopathy, resolved. 2. Urinary tract infection with cultures positive for Klebsiella pneumoniae and Providencia stuartii, s/p treatment. 3. Chronic kidney disease stage III/IV. Continue to monitor BUN and creatinine. Avoid nephrotoxic medication. 4. Diabetes mellitus. Continue NovoLog per sliding scale. 5. Hypertension. Continue Norvasc and Lopressor. 7. Hyperlipidemia. Continue Lipitor. 8. Gout. Continue patient on allopurinol, colchicine and Uloric. 9. History of intracranial hemorrhage and history of ventriculoperitoneal shunt. 10. Neurogenic bladder and urinary retention, S/p suprapubic catheter insertion today by Dr Fay, urology on 10/14. 11. 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 Continue heparin for deep venous thrombosis prophylaxis. Further recommendations based on clinical course. Plan of care discussed with Dr. Cartagena. Subjective 24 Hr Interval Summary Constitutional: improved Eyes: no complaints ENT: no complaints Respiratory: no complaints Cardiovascular: no complaints Gastrointestinal: no complaints Genitourinary: no complaints Musculoskeletal: no complaints Skin: no complaints Neurologic: no complaints Endocrine: no complaints Lymphatic: no complaints Exam/Review of Systems Vital Signs Vitals Vital Signs Date Time Temp Pulse Resp B/P Pulse Ox O2 Delivery O2 Flow Rate FiO2 10/19/16 08:00 97.8 62 18 126/74 98 Room Air Intake and Output 10/18/16 10/18/16 10/19/16 15:00 23:00 07:00 Intake Total 1650 ml 590 ml 940 ml Output Total 150 ml 400 ml Balance 1650 ml 440 ml 540 ml Exam Constitutional: alert Psych: no complaints Eyes: EOMI ENMT: nl external ears & nose Respiratory: clear to auscultation Cardiovascular: nl pulses Gastrointestinal: non-tender, soft Musculoskeletal: nl extremities to inspection Extremities: normal pulses Neurological: nl speech Results Result Diagram: 10/18/16 0630 10/18/16 0640 Results 24 hrs Laboratory Tests Test 10/18/16 20:24 10/19/16 07:49 10/19/16 12:00 Bedside Glucose 108 92 126 Medications Medications Current Medications Ondansetron HCl (Zofran Inj) 4 mg Q6H PRN IV NAUSEA AND/OR VOMITING; Start at 20:49 Oxycodone/ Acetaminophen (Percocet (5/ 325)) 1 tab Q6H PRN PO PAIN; Start 10/06 at 20:49 Acetaminophen (Tylenol Tab) 500 mg Q6H PRN PO PAIN AND OR ELEVATED TEMP; Start 10/06/16 at 20:49 Allopurinol (Zyloprim) 100 mg DAILY PO Last administered on 10/19/16 09:28; Admin Dose 100 MG; Start 10/06/16 at 20:49 Amlodipine Besylate (Norvasc) 5 mg DAILY PO Last administered on 10/19/16 09: 28; Admin Dose 5 MG; Start 10/06/16 at 20:49 Eye Lubricant (Artificial Tears Oph) 2 drop QID BOTH EYES Last administered on 10/19/16 12:18; Admin Dose 2 DROP; Start 10/06/16 at 20:49 Atorvastatin Calcium (Lipitor) 10 mg QHS PO Last administered on 10/18/16 20: 30; Admin Dose 10 MG; Start 10/06/16 at 20:49 Febuxostat (Uloric) 40 mg DAILY PO Last administered on 10/19/16 09:29; Admin Dose 40 MG; Start 10/06/16 at 20:49 Lactobacillus Acidoph/Bulgaricus (Floranex) 1 tab TID PO Last administered on 12:20; Admin Dose 1 TAB; Start 10/06/16 at 20:49 Metoprolol Tartrate (Lopressor) 100 mg BID PO Last administered on 10/19/16 09 :29; Admin Dose 100 MG; Start 10/06/16 at 20:49 Nystatin (Nystatin Susp) 5 ml TID PO Last administered on 10/19/16 12:22; Admin Dose 5 ML; Start 10/06/16 at 20:49 Pantoprazole (Protonix Tab) 40 mg DAILY@06 PO Last administered on 10/19/16 05 :16; Admin Dose 40 MG; Start 10/06/16 at 20:49 Psyllium Hydrophilic Mucilloid (Metamucil) 1 pkt DAILY PO Last administered on 10/19/16 10:04; Admin Dose 1 PKT; Start 10/06/16 at 20:49 Tamsulosin HCl (Flomax) 0.4 mg DAILY PO Last administered on 10/19/16 09:29; Admin Dose 0.4 MG; Start 10/06/16 at 20:49 Miscellaneous Information 1 ea NOTE XX ; Start 10/06/16 at 20:49 Glucose (Glutose) 15 gm Q15M PRN PO DECREASED GLUCOSE; Start 10/06/16 at 20:49 Glucose (Glutose) 22.5 gm Q15M PRN PO DECREASED GLUCOSE; Start 10/06/16 at 20: 49 Dextrose (D50w Syringe) 25 ml Q15M PRN IV DECREASED GLUCOSE; Start 10/06/16 at 20:49 Dextrose (D50w Syringe) 50 ml Q15M PRN IV DECREASED GLUCOSE; Start 10/06/16 at 20:49 Glucagon (Glucagen) 1 mg Q15M PRN IM DECREASED GLUCOSE; Start 10/06/16 at 20:49 Glucose (Glutose) 15 gm Q15M PRN BUCCAL DECREASED GLUCOSE; Start 10/06/16 at 20 :49 Colchicine (Colchicine) 0.6 mg DAILY PO Last administered on 10/19/16 09:29; Admin Dose 0.6 MG; Start 10/06/16 at 20:49 Ascorbic Acid (Vitamin C) 500 mg DAILY PO Last administered on 10/19/16 09:29 ; Admin Dose 500 MG; Start 10/06/16 at 20:49 Clonidine (Catapres) 0.1 mg Q12H PRN PO SBP ABOVE 160; Start 10/06/16 at 20:49 Colchicine (Colchicine) 0.6 mg DAILY PRN PO gout; Start 10/06/16 at 20:49 Ferrous Sulfate (Ferrous Sulfate (Ec)) 325 mg DAILY PO Last administered on 09:29; Admin Dose 325 MG; Start 10/06/16 at 20:49 Hydralazine HCl (Apresoline) 25 mg Q8H PRN PO SPB ABOVE 160; Start 10/06/16 at 20:49 Acetaminophen/ Hydrocodone Bitart ([place] (10325)) 1 tab Q4H PRN PO PAIN Last administered on 10/16/16 11:53; Admin Dose 1 TAB; Start 10/06/16 at 20:49 Lactulose (Enulose) 20 gm Q8 PRN PO CONSTIPATION; Start 10/06/16 at 20:49 Heparin Sodium (Porcine) (Heparin (5000 Units/0.5 ml)) 5,000 unit Q12 SC Last administered on 10/19/16 09:26; Admin Dose 5,000 UNIT; Start 10/06/16 at 20:49 Hydralazine HCl (Apresoline) 10 mg Q6H PRN IV if BP > 170; Start 10/06/16 at 20 :49 Quetiapine Fumarate (Seroquel) 100 mg QHS PO Last administered on 10/18/16 20: 31; Admin Dose 100 MG; Start 10/06/16 at 20:49 Amlodipine Besylate (Norvasc) 10 mg DAILY PO Last administered on 10/19/16 09: 29; Admin Dose 10 MG; Start 10/06/16 at 20:49 Docusate Sodium (Colace) 100 mg BID PO Last administered on 10/19/16 09:29; Admin Dose 100 MG; Start 10/07/16 at 09:00 Senna (Senokot) 1 tab HS PO Last administered on 10/18/16 20:33; Admin Dose 1 TAB; Start 10/07/16 at 21:00 Bisacodyl (Dulcolax Supp) 10 mg DAILY PRN [place] CONSTIPATION; Start 10/07/16 at 03 :00 Magnesium Hydroxide (Milk Of Mag) 30 ml BID PRN PO CONSTIPATION; Start at 03:00 Diagnostic Test (Pha) (Accucheck) 1 ea 02 XX Last administered on 10/12/16 02: 07; Admin Dose 1 EA; Start 10/08/16 at 02:00 Mupirocin (Bactroban) 1 applic BID TOP Last administered on 10/19/16 09:34; Admin Dose 1 APPLIC; Start 10/08/16 at 21:00 Insulin Glargine (Lantus) 10 unit DAILY@20 SC Last administered on 10/18/16 20 :27; Admin Dose 10 UNIT; Start 10/11/16 at 22:00 Hydromorphone HCl 1 mg 1 mg Q3H PRN IV PAIN Last administered on 10/17/16 18:44 ; Admin Dose 1 MG; Start 10/15/16 at 17:00 Cefepime HCl 50 ml @ 100 mls/hr Q24H IVPB Last administered on 10/18/16 20:22 ; Admin Dose 100 MLS/HR; Start 10/17/16 at 20:00 Sodium Chloride (1/2 NS) 1,000 ml @ 70 mls/hr [id number] IV Last administered on 10/19/16 05:16; Admin Dose 70 MLS/HR; Start 10/17/16 at 18:30 PANDA SKAGGS Oct 19, 2016 16:54
--- NOTE | 2016-10-19 17:17 | CONS ---
Date/Time of Note Date/Time of Note DATE: 10/19/16 TIME: 17:17 Assessment/Plan Assessment/Plan Chief Complaint/Hosp Course ID PROGRESS NOTE TOTAL ABX DAY => Cefepime s/p Vanco IV + Levaquin 24H INTERVAL SUMMARY * Pt voiding in urinal still has PVR -- per note, he will void + manage residual by opening clamped suprapubic * Afebrile, WBC normal PHYSICAL EXAMINATION: GENERAL: Lethargic, VSS HEENT: Unremarkable NECK: Supple, full ROM CHEST: Equal chest rise bilaterally, without dyspnea on observation HEART: Pulse RRR ABDOMEN: Soft EXTREMITIES: Warm SKIN: See hard chart skin assessment ID ASSESSMENT: 66 yo M admit with: 1. Resolving Systemic inflammatory response syndrome, status post fevers. * BCx (-) * Urine Cx(-) 2. Possible urinary tract infection. 3. Urinary retention, status post suprapubic catheter placement on 10/14/2016 4. Encephalopathy. 5. Diabetes. (+)MRSA Nares -> Bactroban INVASIVES: PIV, Suprapubic ABX ALLERGY: KNDA CURRENT ABX: => Cefepime s/p Vanco IV + Levaquin ID RECOMMENDATIONS: 1. No evidence of UTI with resolution of SIRS = DC Cefepime and monitor response /. Problems: Consultation Date/Type/Reason Admit Date/Time Oct 06, 2016 at 19:58 Initial Consult Date Exam/Review of Systems Vital Signs Vitals Vital Signs Date Time Temp Pulse Resp B/P Pulse Ox O2 Delivery O2 Flow Rate FiO2 10/19/16 08:00 97.8 62 18 126/74 98 Room Air Intake and Output 10/18/16 10/18/16 10/19/16 15:00 23:00 07:00 Intake Total 1650 ml 590 ml 940 ml Output Total 150 ml 400 ml Balance 1650 ml 440 ml 540 ml Results Result Diagram: 10/18/16 0630 10/18/16 0640 Results 24 hrs Laboratory Tests Test 10/18/16 20:24 10/19/16 07:49 10/19/16 12:00 Bedside Glucose 108 92 126 Medications Medications Current Medications Ondansetron HCl (Zofran Inj) 4 mg Q6H PRN IV NAUSEA AND/OR VOMITING; Start at 20:49 Oxycodone/ Acetaminophen (Percocet (5/ 325)) 1 tab Q6H PRN PO PAIN; Start 10/06 at 20:49 Acetaminophen (Tylenol Tab) 500 mg Q6H PRN PO PAIN AND OR ELEVATED TEMP; Start 10/06/16 at 20:49 Allopurinol (Zyloprim) 100 mg DAILY PO Last administered on 10/19/16 09:28; Admin Dose 100 MG; Start 10/06/16 at 20:49 Amlodipine Besylate (Norvasc) 5 mg DAILY PO Last administered on 10/19/16 09: 28; Admin Dose 5 MG; Start 10/06/16 at 20:49 Eye Lubricant (Artificial Tears Oph) 2 drop QID BOTH EYES Last administered on 10/19/16 12:18; Admin Dose 2 DROP; Start 10/06/16 at 20:49 Atorvastatin Calcium (Lipitor) 10 mg QHS PO Last administered on 10/18/16 20: 30; Admin Dose 10 MG; Start 10/06/16 at 20:49 Febuxostat (Uloric) 40 mg DAILY PO Last administered on 10/19/16 09:29; Admin Dose 40 MG; Start 10/06/16 at 20:49 Lactobacillus Acidoph/Bulgaricus (Floranex) 1 tab TID PO Last administered on 12:20; Admin Dose 1 TAB; Start 10/06/16 at 20:49 Metoprolol Tartrate (Lopressor) 100 mg BID PO Last administered on 10/19/16 09 :29; Admin Dose 100 MG; Start 10/06/16 at 20:49 Nystatin (Nystatin Susp) 5 ml TID PO Last administered on 10/19/16 12:22; Admin Dose 5 ML; Start 10/06/16 at 20:49 Pantoprazole (Protonix Tab) 40 mg DAILY@06 PO Last administered on 10/19/16 05 :16; Admin Dose 40 MG; Start 10/06/16 at 20:49 Psyllium Hydrophilic Mucilloid (Metamucil) 1 pkt DAILY PO Last administered on 10/19/16 10:04; Admin Dose 1 PKT; Start 10/06/16 at 20:49 Tamsulosin HCl (Flomax) 0.4 mg DAILY PO Last administered on 10/19/16 09:29; Admin Dose 0.4 MG; Start 10/06/16 at 20:49 Miscellaneous Information 1 ea NOTE XX ; Start 10/06/16 at 20:49 Glucose (Glutose) 15 gm Q15M PRN PO DECREASED GLUCOSE; Start 10/06/16 at 20:49 Glucose (Glutose) 22.5 gm Q15M PRN PO DECREASED GLUCOSE; Start 10/06/16 at 20: 49 Dextrose (D50w Syringe) 25 ml Q15M PRN IV DECREASED GLUCOSE; Start 10/06/16 at 20:49 Dextrose (D50w Syringe) 50 ml Q15M PRN IV DECREASED GLUCOSE; Start 10/06/16 at 20:49 Glucagon (Glucagen) 1 mg Q15M PRN IM DECREASED GLUCOSE; Start 10/06/16 at 20:49 Glucose (Glutose) 15 gm Q15M PRN BUCCAL DECREASED GLUCOSE; Start 10/06/16 at 20 :49 Colchicine (Colchicine) 0.6 mg DAILY PO Last administered on 10/19/16 09:29; Admin Dose 0.6 MG; Start 10/06/16 at 20:49 Ascorbic Acid (Vitamin C) 500 mg DAILY PO Last administered on 10/19/16 09:29 ; Admin Dose 500 MG; Start 10/06/16 at 20:49 Clonidine (Catapres) 0.1 mg Q12H PRN PO SBP ABOVE 160; Start 10/06/16 at 20:49 Colchicine (Colchicine) 0.6 mg DAILY PRN PO gout; Start 10/06/16 at 20:49 Ferrous Sulfate (Ferrous Sulfate (Ec)) 325 mg DAILY PO Last administered on 09:29; Admin Dose 325 MG; Start 10/06/16 at 20:49 Hydralazine HCl (Apresoline) 25 mg Q8H PRN PO SPB ABOVE 160; Start 10/06/16 at 20:49 Acetaminophen/ Hydrocodone Bitart ([place] (10/325)) 1 tab Q4H PRN PO PAIN Last administered on 10/16/16 11:53; Admin Dose 1 TAB; Start 10/06/16 at 20:49 Lactulose (Enulose) 20 gm Q8 PRN PO CONSTIPATION; Start 10/06/16 at 20:49 Heparin Sodium (Porcine) (Heparin (5000 Units/0.5 ml)) 5,000 unit Q12 SC Last administered on 10/19/16 09:26; Admin Dose 5,000 UNIT; Start 10/06/16 at 20:49 Hydralazine HCl (Apresoline) 10 mg Q6H PRN IV if BP > 170; Start 10/06/16 at 20 :49 Quetiapine Fumarate (Seroquel) 100 mg QHS PO Last administered on 10/18/16 20: 31; Admin Dose 100 MG; Start 10/06/16 at 20:49 Amlodipine Besylate (Norvasc) 10 mg DAILY PO Last administered on 10/19/16 09: 29; Admin Dose 10 MG; Start 10/06/16 at 20:49 Docusate Sodium (Colace) 100 mg BID PO Last administered on 10/19/16 09:29; Admin Dose 100 MG; Start 10/07/16 at 09:00 Senna (Senokot) 1 tab HS PO Last administered on 10/18/16 20:33; Admin Dose 1 TAB; Start 10/07/16 at 21:00 Bisacodyl (Dulcolax Supp) 10 mg DAILY PRN [place] CONSTIPATION; Start 10/07/16 at 03 :00 Magnesium Hydroxide (Milk Of Mag) 30 ml BID PRN PO CONSTIPATION; Start at 03:00 Diagnostic Test (Pha) (Accucheck) 1 ea 02 XX Last administered on 10/12/16 02: 07; Admin Dose 1 EA; Start 10/08/16 at 02:00 Mupirocin (Bactroban) 1 applic BID TOP Last administered on 10/19/16 09:34; Admin Dose 1 APPLIC; Start 10/08/16 at 21:00 Insulin Glargine (Lantus) 10 unit DAILY@20 SC Last administered on 10/18/16 20 :27; Admin Dose 10 UNIT; Start 10/11/16 at 22:00 Hydromorphone HCl 1 mg 1 mg Q3H PRN IV PAIN Last administered on 10/17/16 18:44 ; Admin Dose 1 MG; Start 10/15/16 at 17:00 Cefepime HCl 50 ml @ 100 mls/hr Q24H IVPB Last administered on 10/18/16 20:22 ; Admin Dose 100 MLS/HR; Start 10/17/16 at 20:00 Sodium Chloride (1/2 NS) 1,000 ml @ 70 mls/hr [id number] IV Last administered on 10/19/16t 05:16; Admin Dose 70 MLS/HR; Start 10/17/16 at 18:30 NIKA MANLEY NP Oct 19, 2016 17:17
[2016-10-19 19:35] VITALS: BP 134/76; RESP 18
[2016-10-19] MEDS: ATORVASTATIN 10 MG TAB PO SCH (20:37)
[2016-10-19] MEDS: SENNA TAB PO SCH (20:37)
[2016-10-19] MEDS: QUETIAPINE 100 MG TAB PO SCH (20:37)
[2016-10-19] MEDS: INSULIN GLARGINE [LANtus] 3 ML PEN SC SCH (20:45)
[2016-10-20] MEDS: ACCUCHECK AT 2AM (Patients on SS coverage) XX SCH (00:14)
[2016-10-20] MEDS: PANTOPRAZOLE (EC) 40 MG TAB PO SCH (06:03)
[2016-10-20 07:11] VITALS: BP 131/76; RESP 18
[2016-10-20] MEDS: Insulin NOVOLOG SS MODERATE Algorithm (SS with meals and bedtime) SC SCH ×4 (07:35→20:52)
[2016-10-20] MEDS: HYDROmorphONE 1 MG/ML SYG IV PRN ×4 (07:54→18:52)
[2016-10-20] MEDS: LACTOBACILLUS CHEW TAB PO SCH ×3 (07:55→20:39)
[2016-10-20] MEDS: DOCUSATE SODIUM 100 MG CAP PO SCH ×2 (07:55→20:39)
[2016-10-20] MEDS: COLCHICINE 0.6 MG TAB PO SCH (07:56)
[2016-10-20] MEDS: INSULIN ASPART [NOVOLOG] 3 ML PEN SC SCH ×3 (07:56→18:13)
[2016-10-20] MEDS: ALLOPURINOL 100 MG TAB PO SCH (07:57)
[2016-10-20] MEDS: HEPARIN 5,000 UNIT/0.5 ML SYG SC SCH ×2 (07:58→20:48)
[2016-10-20] MEDS: METOPROLOL 100 MG TAB PO SCH ×2 (08:38→20:39)
[2016-10-20] MEDS: AMLODIPINE 5 MG TAB PO SCH ×2 (08:38→10:56)
[2016-10-20] MEDS: ARTIFICIAL TEARS 15 ML OPH BOTH EYES SCH ×4 (08:39→20:39)
[2016-10-20] MEDS: NYSTATIN SUSP 5 ML CUP PO SCH ×3 (08:39→20:39)
[2016-10-20] MEDS: AMLODIPINE 10 MG TAB PO SCH (09:00)
[2016-10-20] MEDS: PSYLLIUM 28% PACKET PO SCH (09:00)
[2016-10-20] MEDS: ASCORBIC ACID 500 MG TAB PO SCH (10:53)
[2016-10-20] MEDS: TAMSULOSIN (SR) 0.4 MG CAP PO SCH (10:53)
[2016-10-20] MEDS: FEBUXOSTAT 40 MG TABLET PO SCH (10:55)
[2016-10-20] MEDS: FERROUS SULFATE (EC) 325 MG TAB PO SCH (10:55)
[2016-10-20] MEDS: MUPIROCIN 2% 22 GM OINT TOP SCH ×2 (10:56→20:38)
[2016-10-20] MEDS ORDERED: AMLODIPINE 5 MG TAB PO ONE (13:00)
--- NOTE | 2016-10-20 13:08 | PN ---
Date/Time of Note Date/Time of Note DATE: 10/20/16 TIME: 13:03 Assessment/Plan VTE Prophylaxis VTE Prophylaxis Intervention: heparin Lines/Catheters IV Catheter Type (from Nrsg): Saline Lock Assessment/Plan Assessment/Plan 1. Acute encephalopathy with impaired cognition, with impaired mobility/gait/ ADLs. Continue PT/OT/ST. Grooming with supervision, stand by assistance for upper body dressing, min assist for toileting. 2. 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 3. Status post G tube placement for dysphagia. Continue G tube care. Continue to monitor PO intake. 4. Neurogenic bladder/urinary retention s/p suprapubic catheter. Continue management per urology. Patient is voiding. Continue to monitor PVRs. 5. SIRS, resolved. Cultures no growth to date. Antibiotics discontinued by ID. Continue to closely monitor. 6. COLLIN on CKD. Internal medicine managing. Continue to monitor renal function. 7. HTN. Continue current regimen, BP controlled. 8. Hyperlipidemia. Continue statin. 9. DM. Blood sugars controlled, continue insulin regimen per internal medicine. Subjective 24 Hr Interval Summary Free Text/Dictation Rehab progress note Subjective: Denies any acute complaints. Nursing reports no acute overnight events. ROS: Denies chest pain, no shortness of breath, no abdominal pain, no nausea, no vomiting, no headache or dizziness. Exam/Review of Systems Vital Signs Vitals Vital Signs Date Time Temp Pulse Resp B/P Pulse Ox O2 Delivery O2 Flow Rate FiO2 10/20/16 07:11 98.0 57 18 131/76 94 10/19/16 08:00 Room Air Intake and Output 10/19/16 10/19/16 10/20/16 15:00 23:00 07:00 Intake Total 1300 ml 870 ml Output Total 200 ml 670 ml 400 ml Balance -200 ml 630 ml 470 ml Exam General: Awake, alert, no acute distress CV: Regular rate, s1s2 audible Lungs: Symmetrical air entry bilaterally, no wheezing, respirations are nonlabored. Abdomen/: Soft, nontender, +G tube in place, +Suprapubic cathether in place Extremities: No cyanosis, no new swelling. Neuro: No new focal changes. Follows simple commands. Results Result Diagram: 10/18/16 0630 10/18/16 0640 Results 24 hrs Laboratory Tests Test 10/19/16 17:17 10/19/16 20:26 10/20/16 07:25 10/20/16 12:23 Bedside Glucose 112 105 90 111 Medications Medications Current Medications Ondansetron HCl (Zofran Inj) 4 mg Q6H PRN IV NAUSEA AND/OR VOMITING; Start at 20:49 Oxycodone/ Acetaminophen (Percocet (5/ 325)) 1 tab Q6H PRN PO PAIN; Start 10/06 at 20:49 Acetaminophen (Tylenol Tab) 500 mg Q6H PRN PO PAIN AND OR ELEVATED TEMP; Start 10/06/16 at 20:49 Allopurinol (Zyloprim) 100 mg DAILY PO Last administered on 10/20/16 07:57; Admin Dose 100 MG; Start 10/06/16 at 20:49 Eye Lubricant (Artificial Tears Oph) 2 drop QID BOTH EYES Last administered on 10/20/16 08:39; Admin Dose 2 DROP; Start 10/06/16 at 20:49 Atorvastatin Calcium (Lipitor) 10 mg QHS PO Last administered on 10/19/16 20: 37; Admin Dose 10 MG; Start 10/06/16 at 20:49 Febuxostat (Uloric) 40 mg DAILY PO Last administered on 10/20/16 10:55; Admin Dose 40 MG; Start 10/06/16 at 20:49 Lactobacillus Acidoph/Bulgaricus (Floranex) 1 tab TID PO Last administered on 07:55; Admin Dose 1 TAB; Start 10/06/16 at 20:49 Metoprolol Tartrate (Lopressor) 100 mg BID PO Last administered on 10/20/16 08 :38; Admin Dose 100 MG; Start 10/06/16 at 20:49 Nystatin (Nystatin Susp) 5 ml TID PO Last administered on 10/20/16 08:39; Admin Dose 5 ML; Start 10/06/16 at 20:49 Pantoprazole (Protonix Tab) 40 mg DAILY@06 PO Last administered on 10/20/16 06 :03; Admin Dose 40 MG; Start 10/06/16 at 20:49 Psyllium Hydrophilic Mucilloid (Metamucil) 1 pkt DAILY PO Last administered on 3/11/17at 10:04; Admin Dose 1 PKT; Start 10/06/16 at 20:49 Tamsulosin HCl (Flomax) 0.4 mg DAILY PO Last administered on 10/20/16 10:53; Admin Dose 0.4 MG; Start 10/06/16 at 20:49 Miscellaneous Information 1 ea NOTE XX ; Start 10/06/16 at 20:49 Glucose (Glutose) 15 gm Q15M PRN PO DECREASED GLUCOSE; Start 10/06/16 at 20:49 Glucose (Glutose) 22.5 gm Q15M PRN PO DECREASED GLUCOSE; Start 10/06/16 at 20: 49 Dextrose (D50w Syringe) 25 ml Q15M PRN IV DECREASED GLUCOSE; Start 10/06/16 at 20:49 Dextrose (D50w Syringe) 50 ml Q15M PRN IV DECREASED GLUCOSE; Start 10/06/16 at 20:49 Glucagon (Glucagen) 1 mg Q15M PRN IM DECREASED GLUCOSE; Start 10/06/16 at 20:49 Glucose (Glutose) 15 gm Q15M PRN BUCCAL DECREASED GLUCOSE; Start 10/06/16 at 20 :49 Colchicine (Colchicine) 0.6 mg DAILY PO Last administered on 10/20/16 07:56; Admin Dose 0.6 MG; Start 10/06/16 at 20:49 Ascorbic Acid (Vitamin C) 500 mg DAILY PO Last administered on 10/20/16 10:53 ; Admin Dose 500 MG; Start 10/06/16 at 20:49 Clonidine (Catapres) 0.1 mg Q12H PRN PO SBP ABOVE 160; Start 10/06/16 at 20:49 Colchicine (Colchicine) 0.6 mg DAILY PRN PO gout; Start 10/06/16 at 20:49 Ferrous Sulfate (Ferrous Sulfate (Ec)) 325 mg DAILY PO Last administered on 10:55; Admin Dose 325 MG; Start 10/06/16 at 20:49 Hydralazine HCl (Apresoline) 25 mg Q8H PRN PO SPB ABOVE 160; Start 10/06/16 at 20:49 Acetaminophen/ Hydrocodone Bitart ([place] (10/325)) 1 tab Q4H PRN PO PAIN Last administered on 10/16/16 11:53; Admin Dose 1 TAB; Start 10/06/16 at 20:49 Lactulose (Enulose) 20 gm Q8 PRN PO CONSTIPATION; Start 10/06/16 at 20:49 Heparin Sodium (Porcine) (Heparin (5000 Units/0.5 ml)) 5,000 unit Q12 SC Last administered on 10/20/16 07:58; Admin Dose 5,000 UNIT; Start 10/06/16 at 20:49 Hydralazine HCl (Apresoline) 10 mg Q6H PRN IV if BP > 170; Start 10/06/16 at 20 :49 Quetiapine Fumarate (Seroquel) 100 mg QHS PO Last administered on 10/19/16 20: 37; Admin Dose 100 MG; Start 10/06/16 at 20:49 Amlodipine Besylate (Norvasc) 10 mg DAILY PO Last administered on 10/19/16 09: 29; Admin Dose 10 MG; Start 10/06/16 at 20:49 Docusate Sodium (Colace) 100 mg BID PO Last administered on 10/20/16 07:55; Admin Dose 100 MG; Start 10/07/16 at 09:00 Senna (Senokot) 1 tab HS PO Last administered on 10/19/16 20:37; Admin Dose 1 TAB; Start 10/07/16 at 21:00 Bisacodyl (Dulcolax Supp) 10 mg DAILY PRN [place] CONSTIPATION; Start 10/07/16 at 03 :00 Magnesium Hydroxide (Milk Of Mag) 30 ml BID PRN PO CONSTIPATION; Start at 03:00 Diagnostic Test (Pha) (Accucheck) 1 ea 02 XX Last administered on 10/12/16 02: 07; Admin Dose 1 EA; Start 10/08/16 at 02:00 Mupirocin (Bactroban) 1 applic BID TOP Last administered on 10/20/16 10:56; Admin Dose 1 APPLIC; Start 10/08/16 at 21:00 Insulin Glargine (Lantus) 10 unit DAILY@20 SC Last administered on 10/19/16 20 :45; Admin Dose 10 UNIT; Start 10/11/16 at 22:00 Hydromorphone HCl 1 mg 1 mg Q3H PRN IV PAIN Last administered on 10/20/16 12: 29; Admin Dose 1 MG; Start 10/15/16 at 17:00 Sodium Chloride (1/2 NS) 1,000 ml @ 70 mls/hr [id number] IV Last administered on 10/19/16t 23:41; Admin Dose 70 MLS/HR; Start 10/17/16 at 18:30 NEDRA MURRAY Oct 20, 2016 13:07
[2016-10-20] MEDS: SOD CHLORIDE 0.45% 1,000 ML IV SCH (16:03)
--- NOTE | 2016-10-20 17:14 | PN ---
Date/Time of Note Date/Time of Note DATE: 10/20/16 TIME: 17:12 Assessment/Plan VTE Prophylaxis VTE Prophylaxis Intervention: other Lines/Catheters IV C[facility] Type [facility]from [facility] Saline Lock Assessment/Plan Assessment/Plan 1. Acute encephalopathy, resolved. 2. Urinary tract infection with cultures positive for Klebsiella pneumoniae and Providencia stuartii, s/p treatment. 3. Chronic kidney disease stage III/IV. Continue to monitor BUN and creatinine. Avoid nephrotoxic medication. 4. Diabetes mellitus. Continue NovoLog per sliding scale. 5. Hypertension. Continue Norvasc and Lopressor. 7. Hyperlipidemia. Continue Lipitor. 8. Gout. Continue patient on allopurinol, colchicine and Uloric. 9. History of intracranial hemorrhage and history of ventriculoperitoneal shunt. 10. Neurogenic bladder and urinary retention, S/p suprapubic catheter insertion today by Dr Fay, urology on 10/14. 11. 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 Continue heparin for deep venous thrombosis prophylaxis. Anticipate discharge tomorrow. Further recommendations based on clinical course. Plan of care discussed with Dr. Cartagena. Subjective 24 Hr Interval Summary Constitutional: improved Eyes: no complaints ENT: no complaints Respiratory: no complaints Cardiovascular: no complaints Gastrointestinal: no complaints Genitourinary: no complaints Musculoskeletal: no complaints Skin: no complaints Neurologic: no complaints Endocrine: no complaints Lymphatic: no complaints Psychological: no complaints Immunologic: no complaints Exam/Review of Systems Vital Signs Vitals Vital Signs Date Time Temp Pulse Resp B/P Pulse Ox O2 Delivery O2 Flow Rate FiO2 10/20/16 07:11 98.0 57 18 131/76 94 10/19/16 08:00 Room Air Intake and Output 10/19/16 10/19/16 10/20/16 15:00 23:00 07:00 Intake Total 1300 ml 870 ml Output Total 200 ml 670 ml 400 ml Balance -200 ml 630 ml 470 ml Exam Constitutional: alert, oriented, well developed Psych: nl mood/affect Eyes: EOMI, nl sclera ENMT: nl external ears & nose Neck: non-tender Respiratory: clear to auscultation Cardiovascular: nl pulses Gastrointestinal: non-tender, soft Genitourinary - Male: other (suprapubic cath placement ) Musculoskeletal: nl extremities to inspection Neurological: nl mental status, nl speech Skin: nl turgor Lymph: nontender Results Result Diagram: 10/18/16 0630 10/18/16 0640 Results 24 hrs Laboratory Tests Test 10/19/16 17:17 10/19/16 20:26 10/20/16 07:25 10/20/16 12:23 Bedside Glucose 112 105 90 111 Medications Medications Current Medications Ondansetron HCl (Zofran Inj) 4 mg Q6H PRN IV NAUSEA AND/OR VOMITING; Start at 20:49 Oxycodone/ Acetaminophen (Percocet (5/ 325)) 1 tab Q6H PRN PO PAIN; Start 10/06 at 20:49 Acetaminophen (Tylenol Tab) 500 mg Q6H PRN PO PAIN AND OR ELEVATED TEMP; Start 10/06/16 at 20:49 Allopurinol (Zyloprim) 100 mg DAILY PO Last administered on 10/20/16 07:57; Admin Dose 100 MG; Start 10/06/16 at 20:49 Eye Lubricant (Artificial Tears Oph) 2 drop QID BOTH EYES Last administered on 10/20/16 08:39; Admin Dose 2 DROP; Start 10/06/16 at 20:49 Atorvastatin Calcium (Lipitor) 10 mg QHS PO Last administered on 10/19/16 20: 37; Admin Dose 10 MG; Start 10/06/16 at 20:49 Febuxostat (Uloric) 40 mg DAILY PO Last administered on 10/20/16 10:55; Admin Dose 40 MG; Start 10/06/16 at 20:49 Lactobacillus Acidoph/Bulgaricus (Floranex) 1 tab TID PO Last administered on 14:32; Admin Dose 1 TAB; Start 10/06/16 at 20:49 Metoprolol Tartrate (Lopressor) 100 mg BID PO Last administered on 10/20/16 08 :38; Admin Dose 100 MG; Start 10/06/16 at 20:49 Nystatin (Nystatin Susp) 5 ml TID PO Last administered on 10/20/16 14:32; Admin Dose 5 ML; Start 10/06/16 at 20:49 Pantoprazole (Protonix Tab) 40 mg DAILY@06 PO Last administered on 10/20/16 06 :03; Admin Dose 40 MG; Start 10/06/16 at 20:49 Psyllium Hydrophilic Mucilloid (Metamucil) 1 pkt DAILY PO Last administered on 10/19/16 10:04; Admin Dose 1 PKT; Start 10/06/16 at 20:49 Tamsulosin HCl (Flomax) 0.4 mg DAILY PO Last administered on 10/20/16 10:53; Admin Dose 0.4 MG; Start 10/06/16 at 20:49 Miscellaneous Information 1 ea NOTE XX ; Start 10/06/16 at 20:49 Glucose (Glutose) 15 gm Q15M PRN PO DECREASED GLUCOSE; Start 10/06/16 at 20:49 Glucose (Glutose) 22.5 gm Q15M PRN PO DECREASED GLUCOSE; Start 10/06/16 at 20: 49 Dextrose (D50w Syringe) 25 ml Q15M PRN IV DECREASED GLUCOSE; Start 10/06/16 at 20:49 Dextrose (D50w Syringe) 50 ml Q15M PRN IV DECREASED GLUCOSE; Start 10/06/16 at 20:49 Glucagon (Glucagen) 1 mg Q15M PRN IM DECREASED GLUCOSE; Start 10/06/16 at 20:49 Glucose (Glutose) 15 gm Q15M PRN BUCCAL DECREASED GLUCOSE; Start 10/06/16 at 20 :49 Colchicine (Colchicine) 0.6 mg DAILY PO Last administered on 10/20/16 07:56; Admin Dose 0.6 MG; Start 10/06/16 at 20:49 Ascorbic Acid (Vitamin C) 500 mg DAILY PO Last administered on 10/20/16 10:53 ; Admin Dose 500 MG; Start 10/06/16 at 20:49 Clonidine (Catapres) 0.1 mg Q12H PRN PO SBP ABOVE 160; Start 10/06/16 at 20:49 Colchicine (Colchicine) 0.6 mg DAILY PRN PO gout; Start 10/06/16 at 20:49 Ferrous Sulfate (Ferrous Sulfate (Ec)) 325 mg DAILY PO Last administered on 10:55; Admin Dose 325 MG; Start 10/06/16 at 20:49 Hydralazine HCl (Apresoline) 25 mg Q8H PRN PO SPB ABOVE 160; Start 10/06/16 at 20:49 Acetaminophen/ Hydrocodone Bitart ([place] (10)) 1 tab Q4H PRN PO PAIN Last administered on 10/16/16 11:53; Admin Dose 1 TAB; Start 10/06/16 at 20:49 Lactulose (Enulose) 20 gm Q8 PRN PO CONSTIPATION; Start 10/06/16 at 20:49 Heparin Sodium (Porcine) (Heparin (5000 Units/0.5 ml)) 5,000 unit Q12 SC Last administered on 10/20/16 07:58; Admin Dose 5,000 UNIT; Start 10/06/16 at 20:49 Hydralazine HCl (Apresoline) 10 mg Q6H PRN IV if BP > 170; Start 10/06/16 at 20 :49 Quetiapine Fumarate (Seroquel) 100 mg QHS PO Last administered on 10/19/16 20: 37; Admin Dose 100 MG; Start 10/06/16 at 20:49 Amlodipine Besylate (Norvasc) 10 mg DAILY PO Last administered on 10/19/16 09: 29; Admin Dose 10 MG; Start 10/06/16 at 20:49 Docusate Sodium (Colace) 100 mg BID PO Last administered on 10/20/16 07:55; Admin Dose 100 MG; Start 10/07/16 at 09:00 Senna (Senokot) 1 tab HS PO Last administered on 10/19/16 20:37; Admin Dose 1 TAB; Start 10/07/16 at 21:00 Bisacodyl (Dulcolax Supp) 10 mg DAILY PRN [place] CONSTIPATION; Start 10/07/16 at 03 :00 Magnesium Hydroxide (Milk Of Mag) 30 ml BID PRN PO CONSTIPATION; Start at 03:00 Diagnostic Test (Pha) (Accucheck) 1 ea 02 XX Last administered on 10/12/16 02: 07; Admin Dose 1 EA; Start 10/08/16 at 02:00 Mupirocin (Bactroban) 1 applic BID TOP Last administered on 10/20/16 10:56; Admin Dose 1 APPLIC; Start 10/08/16 at 21:00 Insulin Glargine (Lantus) 10 unit DAILY@20 SC Last administered on 10/19/16 20 :45; Admin Dose 10 UNIT; Start 10/11/16 at 22:00 Hydromorphone HCl 1 mg 1 mg Q3H PRN IV PAIN Last administered on 10/20/16 16: 05; Admin Dose 1 MG; Start 10/15/16 at 17:00 Sodium Chloride (1/2 NS) 1,000 ml @ 70 mls/hr [id number] IV Last administered on 10/20/16 16:03; Admin Dose 70 MLS/HR; Start 10/17/16 at 18:30 PANDA SKAGGS Oct 20, 2016 17:13
--- NOTE | 2016-10-20 19:50 | CONS ---
Date/Time of Note Date/Time of Note DATE: 10/20/16 TIME: 19:48 Assessment/Plan Assessment/Plan Chief Complaint/Hosp Course ID PROGRESS NOTE TOTAL ABX DAY => OFF ABX DAY #1 s/p Cefepime s/p Vanco IV + Levaquin 24H INTERVAL SUMMARY * No fevers OFF ABX, no new issues, no c/o -- DC Planning for tomorrow OFF ABX * Pt voiding in urinal still has PVR -- per note, he will void + manage residual by opening clamped suprapubic * Afebrile, WBC normal PHYSICAL EXAMINATION: GENERAL: Lethargic, VSS HEENT: Unremarkable NECK: Supple, full ROM CHEST: Equal chest rise bilaterally, without dyspnea on observation HEART: Pulse RRR ABDOMEN: Soft EXTREMITIES: Warm SKIN: See hard chart skin assessment ID ASSESSMENT: 66 yo M admit with: 1. Resolving Systemic inflammatory response syndrome, status post fevers. * BCx (-) * Urine Cx(-) 2. Possible urinary tract infection. 3. Urinary retention, status post suprapubic catheter placement on 10/14/2016 4. Encephalopathy. 5. Diabetes. (+)MRSA Nares -> Bactroban INVASIVES: PIV, Suprapubic ABX ALLERGY: KNDA CURRENT ABX: => OFF ABX day #1 Cefepime s/p Vanco IV + Levaquin ID RECOMMENDATIONS: 1. No evidence of UTI with resolution of SIRS 2. OK DC Planning for tomorrow OFF ABX as long as stable, no recurrent s/sx of UTI . /. Problems: Consultation Date/Type/Reason Admit Date/Time Oct 06, 2016 at 19:58 Exam/Review of Systems Vital Signs Vitals Vital Signs Date Time Temp Pulse Resp B/P Pulse Ox O2 Delivery O2 Flow Rate FiO2 10/20/16 07:11 98.0 57 18 131/76 94 10/19/16 08:00 Room Air Intake and Output 10/19/16 10/19/16 10/20/16 15:00 23:00 07:00 Intake Total 1300 ml 870 ml Output Total 200 ml 670 ml 400 ml Balance -200 ml 630 ml 470 ml Results Result Diagram: 10/18/16 0630 10/18/16 0640 Results 24 hrs Laboratory Tests Test 10/19/16 20:26 10/20/16 07:25 10/20/16 12:23 10/20/16 17:18 Bedside Glucose 105 90 111 105 Medications Medications Current Medications Ondansetron HCl (Zofran Inj) 4 mg Q6H PRN IV NAUSEA AND/OR VOMITING; Start at 20:49 Oxycodone/ Acetaminophen (Percocet (5/ 325)) 1 tab Q6H PRN PO PAIN; Start 10/06 at 20:49 Acetaminophen (Tylenol Tab) 500 mg Q6H PRN PO PAIN AND OR ELEVATED TEMP; Start 10/06/16 at 20:49 Allopurinol (Zyloprim) 100 mg DAILY PO Last administered on 10/20/16 07:57; Admin Dose 100 MG; Start 10/06/16 at 20:49 Eye Lubricant (Artificial Tears Oph) 2 drop QID BOTH EYES Last administered on 10/20/16 18:22; Admin Dose 2 DROP; Start 10/06/16 at 20:49 Atorvastatin Calcium (Lipitor) 10 mg QHS PO Last administered on 10/19/16 20: 37; Admin Dose 10 MG; Start 10/06/16 at 20:49 Febuxostat (Uloric) 40 mg DAILY PO Last administered on 10/20/16 10:55; Admin Dose 40 MG; Start 10/06/16 at 20:49 Lactobacillus Acidoph/Bulgaricus (Floranex) 1 tab TID PO Last administered on 14:32; Admin Dose 1 TAB; Start 10/06/16 at 20:49 Metoprolol Tartrate (Lopressor) 100 mg BID PO Last administered on 10/20/16 08 :38; Admin Dose 100 MG; Start 10/06/16 at 20:49 Nystatin (Nystatin Susp) 5 ml TID PO Last administered on 10/20/16 14:32; Admin Dose 5 ML; Start 10/06/16 at 20:49 Pantoprazole (Protonix Tab) 40 mg DAILY@06 PO Last administered on 10/20/16 06 :03; Admin Dose 40 MG; Start 10/06/16 at 20:49 Psyllium Hydrophilic Mucilloid (Metamucil) 1 pkt DAILY PO Last administered on 10/19/16 10:04; Admin Dose 1 PKT; Start 10/06/16 at 20:49 Tamsulosin HCl (Flomax) 0.4 mg DAILY PO Last administered on 10/20/16 10:53; Admin Dose 0.4 MG; Start 10/06/16 at 20:49 Miscellaneous Information 1 ea NOTE XX ; Start 10/06/16 at 20:49 Glucose (Glutose) 15 gm Q15M PRN PO DECREASED GLUCOSE; Start 10/06/16 at 20:49 Glucose (Glutose) 22.5 gm Q15M PRN PO DECREASED GLUCOSE; Start 10/06/16 at 20: 49 Dextrose (D50w Syringe) 25 ml Q15M PRN IV DECREASED GLUCOSE; Start 10/06/16 at 20:49 Dextrose (D50w Syringe) 50 ml Q15M PRN IV DECREASED GLUCOSE; Start 10/06/16 at 20:49 Glucagon (Glucagen) 1 mg Q15M PRN IM DECREASED GLUCOSE; Start 10/06/16 at 20:49 Glucose (Glutose) 15 gm Q15M PRN BUCCAL DECREASED GLUCOSE; Start 10/06/16 at 20 :49 Colchicine (Colchicine) 0.6 mg DAILY PO Last administered on 10/20/16 07:56; Admin Dose 0.6 MG; Start 10/06/16 at 20:49 Ascorbic Acid (Vitamin C) 500 mg DAILY PO Last administered on 10/20/16 10:53 ; Admin Dose 500 MG; Start 10/06/16 at 20:49 Clonidine (Catapres) 0.1 mg Q12H PRN PO SBP ABOVE 160; Start 10/06/16 at 20:49 Colchicine (Colchicine) 0.6 mg DAILY PRN PO gout; Start 10/06/16 at 20:49 Ferrous Sulfate (Ferrous Sulfate (Ec)) 325 mg DAILY PO Last administered on 10:55; Admin Dose 325 MG; Start 10/06/16 at 20:49 Hydralazine HCl (Apresoline) 25 mg Q8H PRN PO SPB ABOVE 160; Start 10/06/16 at 20:49 Acetaminophen/ Hydrocodone Bitart ([place] (10)) 1 tab Q4H PRN PO PAIN Last administered on 10/16/16 11:53; Admin Dose 1 TAB; Start 10/06/16 at 20:49 Lactulose (Enulose) 20 gm Q8 PRN PO CONSTIPATION; Start 10/06/16 at 20:49 Heparin Sodium (Porcine) (Heparin (5000 Units/0.5 ml)) 5,000 unit Q12 SC Last administered on 10/20/16 07:58; Admin Dose 5,000 UNIT; Start 10/06/16 at 20:49 Hydralazine HCl (Apresoline) 10 mg Q6H PRN IV if BP > 170; Start 10/06/16 at 20 :49 Quetiapine Fumarate (Seroquel) 100 mg QHS PO Last administered on 10/19/16 20: 37; Admin Dose 100 MG; Start 10/06/16 at 20:49 Amlodipine Besylate (Norvasc) 10 mg DAILY PO Last administered on 10/19/16 09: 29; Admin Dose 10 MG; Start 10/06/16 at 20:49 Docusate Sodium (Colace) 100 mg BID PO Last administered on 10/20/16 07:55; Admin Dose 100 MG; Start 10/07/16 at 09:00 Senna (Senokot) 1 tab HS PO Last administered on 10/19/16 20:37; Admin Dose 1 TAB; Start 10/07/16 at 21:00 Bisacodyl (Dulcolax Supp) 10 mg DAILY PRN [place] CONSTIPATION; Start 10/07/16 at 03 :00 Magnesium Hydroxide (Milk Of Mag) 30 ml BID PRN PO CONSTIPATION; Start at 03:00 Diagnostic Test (Pha) (Accucheck) 1 ea 02 XX Last administered on 10/12/16 02: 07; Admin Dose 1 EA; Start 10/08/16 at 02:00 Mupirocin (Bactroban) 1 applic BID TOP Last administered on 10/20/16 10:56; Admin Dose 1 APPLIC; Start 10/08/16 at 21:00 Insulin Glargine (Lantus) 10 unit DAILY@20 SC Last administered on 10/19/16 20 :45; Admin Dose 10 UNIT; Start 10/11/16 at 22:00 Hydromorphone HCl 1 mg 1 mg Q3H PRN IV PAIN Last administered on 10/20/16 18: 52; Admin Dose 1 MG; Start 10/15/16 at 17:00 Sodium Chloride (1/2 NS) 1,000 ml @ 70 mls/hr [id number] IV Last administered on 10/20/16t 16:03; Admin Dose 70 MLS/HR; Start 10/17/16 at 18:30 NIKA MANLEY NP Oct 20, 2016 19:50
[2016-10-20 20:32] VITALS: BP 141/75; PULSE 62; RESP 17
--- NOTE | 2016-10-20 20:38 | PN ---
DATE: 10/20/2016 SUBJECTIVE: Urinary retention and high postvoid residual. The patient has a suprapubic tube and he is voiding, but he still has a high postvoid residual. OBJECTIVE: VITAL SIGNS: His temperature is 98, blood pressure 131/76, respiration 18, pulse is 57. ABDOMEN: Soft. He does have a G-tube in place and also he does have the suprapubic tube. There was a concern about that the plug and the suprapubic tube is not 100% dry, that he is leaking a little bit around it, but I saw that the tip of the catheter is kept below the bladder level and t hat makes it easier for urine to leak, so I instructed the nurse to tape the suprapubic tube high on the abdomen, so it will be higher than the bladder level and therefore the urine will not drain. A lso to make sure to give the patient additional catheter plugs. This way, he will have enough to ch pa it in case the one that he has is not good anymore. Second, also at night the said she ca nnot get up to empty his bag; therefore, it would be okay to connect the suprapubic tube to a draina ge bag during the night. LABORATORY DATA: His last urine culture from the suprapubic tube is no growth after 48 hours. The CBC shows a white count of 4.2, hemoglobin 11.0, hematocrit 33.5. The BUN is 51, creatinine 2.62. IMPRESSION: The patient has been voiding today, about between 200 to 300 mL, and his postvoid resid ual is about the same. He did urinate 1 time 300, postvoid residual 300. Another time his postvoid residual was also about 300 and he voided 400. RECOMMENDATION: To keep the suprapubic tube and continue to open the suprapubic tube after each voi ding, so the bladder does not get distended and he does not go into urinary retention. Dictated By: FELIX ROY/GORGE Conf#: [id number] DID#: [id number] CC: MORGAN RANGEL MD;*EndCC*
[2016-10-20] MEDS: QUETIAPINE 100 MG TAB PO SCH (20:39)
[2016-10-20] MEDS: ATORVASTATIN 10 MG TAB PO SCH (20:39)
[2016-10-20] MEDS: SENNA TAB PO SCH (20:39)
[2016-10-20] MEDS: INSULIN GLARGINE [LANtus] 3 ML PEN SC SCH (20:48)
[2016-10-21] MEDS: ACCUCHECK AT 2AM (Patients on SS coverage) XX SCH (02:00)
[2016-10-21] MEDS: PANTOPRAZOLE (EC) 40 MG TAB PO SCH (05:30)
[2016-10-21] MEDS: HYDROmorphONE 1 MG/ML SYG IV PRN ×4 (07:33→17:42)
[2016-10-21] MEDS: Insulin NOVOLOG SS MODERATE Algorithm (SS with meals and bedtime) SC SCH ×4 (07:35→20:53)
[2016-10-21 08:00] VITALS: BP 128/76; RESP 18
[2016-10-21] MEDS: SOD CHLORIDE 0.45% 1,000 ML IV SCH ×3 (08:18→15:36)
[2016-10-21] MEDS: INSULIN ASPART [NOVOLOG] 3 ML PEN SC SCH ×3 (08:45→17:46)
[2016-10-21] MEDS: PSYLLIUM 28% PACKET PO SCH (09:00)
[2016-10-21] MEDS: ASCORBIC ACID 500 MG TAB PO SCH (09:25)
[2016-10-21] MEDS: COLCHICINE 0.6 MG TAB PO SCH (09:25)
[2016-10-21] MEDS: DOCUSATE SODIUM 100 MG CAP PO SCH ×2 (09:25→20:42)
[2016-10-21] MEDS: ALLOPURINOL 100 MG TAB PO SCH (09:25)
[2016-10-21] MEDS: LACTOBACILLUS CHEW TAB PO SCH ×3 (09:26→20:42)
[2016-10-21] MEDS: NYSTATIN SUSP 5 ML CUP PO SCH ×3 (09:26→20:41)
[2016-10-21] MEDS: TAMSULOSIN (SR) 0.4 MG CAP PO SCH (09:26)
[2016-10-21] MEDS: FEBUXOSTAT 40 MG TABLET PO SCH (09:27)
[2016-10-21] MEDS: METOPROLOL 100 MG TAB PO SCH ×2 (09:27→20:42)
[2016-10-21] MEDS: ARTIFICIAL TEARS 15 ML OPH BOTH EYES SCH ×4 (09:28→20:43)
[2016-10-21] MEDS: AMLODIPINE 10 MG TAB PO SCH (09:28)
[2016-10-21] MEDS: MUPIROCIN 2% 22 GM OINT TOP SCH ×2 (09:28→20:43)
[2016-10-21] MEDS: FERROUS SULFATE (EC) 325 MG TAB PO SCH (09:29)
[2016-10-21] MEDS: HEPARIN 5,000 UNIT/0.5 ML SYG SC SCH ×2 (09:30→20:52)
[2016-10-21] MEDS: HYDROCODONE/APAP (10/325) TAB PO PRN ×2 (11:43→16:55)
--- NOTE | 2016-10-21 12:04 | CONS ---
Date/Time of Note Date/Time of Note DATE: 10/21/16 TIME: 12:02 Consult Date/Type/Reason Admit Date/Time Oct 06, 2016 at 19:58 Subjective No new complaints RN reports family now wants to have GT removed Objective Vital Signs Date Time Temp Pulse Resp B/P Pulse Ox O2 Delivery O2 Flow Rate FiO2 10/21/16 08:00 98.3 55 18 128/76 96 10/20/16 20:32 Room Air Intake and Output 10/20/16 10/20/16 10/21/16 15:00 23:00 07:00 Intake Total 850 ml 650 ml 1120 ml Output Total 1000 ml 300 ml 450 ml Balance -150 ml 350 ml 670 ml INTERDISCIPLINARY TEAM CONFERENCE BOWEL- Cont BLADDER-Cont SKIN- intact OT- DRESSING-sba/min BATHING-sba/min TOILETING-cga PT- BED MOBILITY-sba TRANSFERS-sba AMBULATION-sba 150 SPEECH- COGNITION-min A/P- Interdisciplinary team conference held today. Please see interdisciplinary sheet. Working toward d.c. on with post discharge follow up of physical therapy, occupational therapy. Results/Medications Result Diagram: 10/18/16 0630 10/18/16 0640 Results 24 hrs Laboratory Tests Test 10/20/16 12:23 10/20/16 17:18 10/20/16 20:02 10/21/16 07:34 Bedside Glucose 111 105 116 94 Medications Current Medications Ondansetron HCl (Zofran Inj) 4 mg Q6H PRN IV NAUSEA AND/OR VOMITING; Start at 20:49 Oxycodone/ Acetaminophen (Percocet (5/ 325)) 1 tab Q6H PRN PO PAIN; Start 10/06 at 20:49 Acetaminophen (Tylenol Tab) 500 mg Q6H PRN PO PAIN AND OR ELEVATED TEMP; Start 10/06/16 at 20:49 Allopurinol (Zyloprim) 100 mg DAILY PO Last administered on 10/21/16 09:25; Admin Dose 100 MG; Start 10/06/16 at 20:49 Eye Lubricant (Artificial Tears Oph) 2 drop QID BOTH EYES Last administered on 10/21/16 09:28; Admin Dose 2 DROP; Start 10/06/16 at 20:49 Atorvastatin Calcium (Lipitor) 10 mg QHS PO Last administered on 10/20/16 20: 39; Admin Dose 10 MG; Start 10/06/16 at 20:49 Febuxostat (Uloric) 40 mg DAILY PO Last administered on 10/21/16 09:27; Admin Dose 40 MG; Start 10/06/16 at 20:49 Lactobacillus Acidoph/Bulgaricus (Floranex) 1 tab TID PO Last administered on 09:26; Admin Dose 1 TAB; Start 10/06/16 at 20:49 Metoprolol Tartrate (Lopressor) 100 mg BID PO Last administered on 10/21/16 09 :27; Admin Dose 100 MG; Start 10/06/16 at 20:49 Nystatin (Nystatin Susp) 5 ml TID PO Last administered on 10/21/16 09:26; Admin Dose 5 ML; Start 10/06/16 at 20:49 Pantoprazole (Protonix Tab) 40 mg DAILY@06 PO Last administered on 10/21/16 05 :30; Admin Dose 40 MG; Start 10/06/16 at 20:49 Psyllium Hydrophilic Mucilloid (Metamucil) 1 pkt DAILY PO Last administered on 10/19/16 10:04; Admin Dose 1 PKT; Start 10/06/16 at 20:49 Tamsulosin HCl (Flomax) 0.4 mg DAILY PO Last administered on 10/21/16 09:26; Admin Dose 0.4 MG; Start 10/06/16 at 20:49 Miscellaneous Information 1 ea NOTE XX ; Start 10/06/16 at 20:49 Glucose (Glutose) 15 gm Q15M PRN PO DECREASED GLUCOSE; Start 10/06/16 at 20:49 Glucose (Glutose) 22.5 gm Q15M PRN PO DECREASED GLUCOSE; Start 10/06/16 at 20: 49 Dextrose (D50w Syringe) 25 ml Q15M PRN IV DECREASED GLUCOSE; Start 10/06/16 at 20:49 Dextrose (D50w Syringe) 50 ml Q15M PRN IV DECREASED GLUCOSE; Start 10/06/16 at 20:49 Glucagon (Glucagen) 1 mg Q15M PRN IM DECREASED GLUCOSE; Start 10/06/16 at 20:49 Glucose (Glutose) 15 gm Q15M PRN BUCCAL DECREASED GLUCOSE; Start 10/06/16 at 20 :49 Colchicine (Colchicine) 0.6 mg DAILY PO Last administered on 10/21/16 09:25; Admin Dose 0.6 MG; Start 10/06/16 at 20:49 Ascorbic Acid (Vitamin C) 500 mg DAILY PO Last administered on 10/21/16 09:25 ; Admin Dose 500 MG; Start 10/06/16 at 20:49 Clonidine (Catapres) 0.1 mg Q12H PRN PO SBP ABOVE 160; Start 10/06/16 at 20:49 Colchicine (Colchicine) 0.6 mg DAILY PRN PO gout; Start 10/06/16 at 20:49 Ferrous Sulfate (Ferrous Sulfate (Ec)) 325 mg DAILY PO Last administered on 09:29; Admin Dose 325 MG; Start 10/06/16 at 20:49 Hydralazine HCl (Apresoline) 25 mg Q8H PRN PO SPB ABOVE 160; Start 10/06/16 at 20:49 Acetaminophen/ Hydrocodone Bitart ([place] ()) 1 tab Q4H PRN PO PAIN Last administered on 10/21/16 11:43; Admin Dose 1 TAB; Start 10/06/16 at 20:49 Lactulose (Enulose) 20 gm Q8 PRN PO CONSTIPATION; Start 10/06/16 at 20:49 Heparin Sodium (Porcine) (Heparin (5000 Units/0.5 ml)) 5,000 unit Q12 SC Last administered on 10/21/16 09:30; Admin Dose 5,000 UNIT; Start 10/06/16 at 20:49 Hydralazine HCl (Apresoline) 10 mg Q6H PRN IV if BP > 170; Start 10/06/16 at 20 :49 Quetiapine Fumarate (Seroquel) 100 mg QHS PO Last administered on 10/20/16 20: 39; Admin Dose 100 MG; Start 10/06/16 at 20:49 Amlodipine Besylate (Norvasc) 10 mg DAILY PO Last administered on 10/21/16 09: 28; Admin Dose 10 MG; Start 10/06/16 at 20:49 Docusate Sodium (Colace) 100 mg BID PO Last administered on 10/21/16 09:25; Admin Dose 100 MG; Start 10/07/16 at 09:00 Senna (Senokot) 1 tab HS PO Last administered on 10/20/16 20:39; Admin Dose 1 TAB; Start 10/07/16 at 21:00 Bisacodyl (Dulcolax Supp) 10 mg DAILY PRN [place] CONSTIPATION; Start 10/07/16 at 03 :00 Magnesium Hydroxide (Milk Of Mag) 30 ml BID PRN PO CONSTIPATION; Start at 03:00 Diagnostic Test (Pha) (Accucheck) 1 ea 02 XX Last administered on 10/12/16 02: 07; Admin Dose 1 EA; Start 10/08/16 at 02:00 Mupirocin (Bactroban) 1 applic BID TOP Last administered on 10/21/16 09:28; Admin Dose 1 APPLIC; Start 10/08/16 at 21:00 Insulin Glargine (Lantus) 10 unit DAILY@20 SC Last administered on 10/20/16 20 :48; Admin Dose 10 UNIT; Start 10/11/16 at 22:00 Hydromorphone HCl 1 mg 1 mg Q3H PRN IV PAIN Last administered on 10/21/16 07: 33; Admin Dose 1 MG; Start 10/15/16 at 17:00 Sodium Chloride (1/2 NS) 1,000 ml @ 70 mls/hr [id number] IV Last administered on 10/21/16 11:17; Admin Dose 70 MLS/HR; Start 10/17/16 at 18:30 MORGAN RANGEL MD Oct 21, 2016 12:04
--- NOTE | 2016-10-21 12:54 | PN ---
Date/Time of Note Date/Time of Note DATE: 10/21/16 TIME: 12:52 Assessment/Plan VTE Prophylaxis VTE Prophylaxis Intervention: heparin Lines/Catheters IV C[facility] Type [facility] Peripheral IV Assessment/Plan Chief Complaint/Hosp Course ASSESSMENT AND PLAN: 1. Acute encephalopathy, resolved. 2. Urinary tract infection with cultures positive for Klebsiella pneumoniae and Providencia stuartii, s/p treatment. 3. Chronic kidney disease stage III/IV. Continue to monitor BUN and creatinine. Avoid nephrotoxic medication. 4. Diabetes mellitus. Continue NovoLog per sliding scale. 5. Hypertension. Continue Norvasc and Lopressor. 7. Hyperlipidemia. Continue Lipitor. 8. Gout. Continue patient on allopurinol, colchicine and Uloric. 9. History of intracranial hemorrhage and history of ventriculoperitoneal shunt. 10. Neurogenic bladder and urinary retention, S/p suprapubic catheter insertion today by Dr Fay, urology on 10/14. 11. 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 12. G tube, patient tolerates diet well, patient is patient's daughter request for GC G-tube. Dr. Alamo is asked to see patients in gastroenterology consultation. Continue heparin for deep venous thrombosis prophylaxis. Further recommendations based on clinical course. Plan of care discussed with Dr. Cartagena. Problems: Subjective 24 Hr Interval Summary Free Text/Dictation Patient is awake alert and oriented 3, no fever nausea vomiting. Patient and patient's daughter decided to remove G-tube. Exam/Review of Systems Vital Signs Vitals Vital Signs Date Time Temp Pulse Resp B/P Pulse Ox O2 Delivery O2 Flow Rate FiO2 10/21/16 08:00 98.3 55 18 128/76 96 10/20/16 20:32 Room Air Intake and Output 10/20/16 10/20/16 10/21/16 15:00 23:00 07:00 Intake Total 850 ml 650 ml 1120 ml Output Total 1000 ml 300 ml 450 ml Balance -150 ml 350 ml 670 ml Exam GENERAL: Well-developed, well-nourished gentleman. No acute distress. HEENT: Head is atraumatic, normocephalic. Pupils equally round, reactive to light and accommodation. NECK: Supple. No cervical lymphadenopathy, no thyromegaly. CHEST: Lungs clear bilaterally. There are no rhonchi, wheezes, rales noted. CARDIOVASCULAR: Normal S1, S2. No murmurs, gallops, clicks, rubs noted. ABDOMEN: Round, soft, nondistended, nontender. Bowel sounds present. The patient has a G-tube with intact stoma. EXTREMITIES: No edema, clubbing, cyanosis. GENITOURINARY: Suprapubic catheter. SKIN: No rash, petechiae noted. NEUROLOGIC: The patient is awake, alert and oriented x3. Results Result Diagram: 10/18/16 0630 10/18/16 0640 Results 24 hrs Laboratory Tests Test 10/20/16 17:18 10/20/16 20:02 10/21/16 07:34 10/21/16 12:06 Bedside Glucose 105 116 94 138 Medications Medications Current Medications Ondansetron HCl (Zofran Inj) 4 mg Q6H PRN IV NAUSEA AND/OR VOMITING; Start at 20:49 Oxycodone/ Acetaminophen (Percocet (5/ 325)) 1 tab Q6H PRN PO PAIN; Start 10/06 at 20:49 Acetaminophen (Tylenol Tab) 500 mg Q6H PRN PO PAIN AND OR ELEVATED TEMP; Start 10/06/16 at 20:49 Allopurinol (Zyloprim) 100 mg DAILY PO Last administered on 10/21/16 09:25; Admin Dose 100 MG; Start 10/06/16 at 20:49 Eye Lubricant (Artificial Tears Oph) 2 drop QID BOTH EYES Last administered on 10/21/16 09:28; Admin Dose 2 DROP; Start 10/06/16 at 20:49 Atorvastatin Calcium (Lipitor) 10 mg QHS PO Last administered on 10/20/16 20: 39; Admin Dose 10 MG; Start 10/06/16 at 20:49 Febuxostat (Uloric) 40 mg DAILY PO Last administered on 10/21/16 09:27; Admin Dose 40 MG; Start 10/06/16 at 20:49 Lactobacillus Acidoph/Bulgaricus (Floranex) 1 tab TID PO Last administered on 09:26; Admin Dose 1 TAB; Start 10/06/16 at 20:49 Metoprolol Tartrate (Lopressor) 100 mg BID PO Last administered on 10/21/16 09 :27; Admin Dose 100 MG; Start 10/06/16 at 20:49 Nystatin (Nystatin Susp) 5 ml TID PO Last administered on 10/21/16 09:26; Admin Dose 5 ML; Start 10/06/16 at 20:49 Pantoprazole (Protonix Tab) 40 mg DAILY@06 PO Last administered on 10/21/16 05 :30; Admin Dose 40 MG; Start 10/06/16 at 20:49 Psyllium Hydrophilic Mucilloid (Metamucil) 1 pkt DAILY PO Last administered on 10/19/16 10:04; Admin Dose 1 PKT; Start 10/06/16 at 20:49 Tamsulosin HCl (Flomax) 0.4 mg DAILY PO Last administered on 10/21/16 09:26; Admin Dose 0.4 MG; Start 10/06/16 at 20:49 Miscellaneous Information 1 ea NOTE XX ; Start 10/06/16 at 20:49 Glucose (Glutose) 15 gm Q15M PRN PO DECREASED GLUCOSE; Start 10/06/16 at 20:49 Glucose (Glutose) 22.5 gm Q15M PRN PO DECREASED GLUCOSE; Start 10/06/16 at 20: 49 Dextrose (D50w Syringe) 25 ml Q15M PRN IV DECREASED GLUCOSE; Start 10/06/16 at 20:49 Dextrose (D50w Syringe) 50 ml Q15M PRN IV DECREASED GLUCOSE; Start 10/06/16 at 20:49 Glucagon (Glucagen) 1 mg Q15M PRN IM DECREASED GLUCOSE; Start 10/06/16 at 20:49 Glucose (Glutose) 15 gm Q15M PRN BUCCAL DECREASED GLUCOSE; Start 10/06/16 at 20 :49 Colchicine (Colchicine) 0.6 mg DAILY PO Last administered on 10/21/16 09:25; Admin Dose 0.6 MG; Start 10/06/16 at 20:49 Ascorbic Acid (Vitamin C) 500 mg DAILY PO Last administered on 10/21/16 09:25 ; Admin Dose 500 MG; Start 10/06/16 at 20:49 Clonidine (Catapres) 0.1 mg Q12H PRN PO SBP ABOVE 160; Start 10/06/16 at 20:49 Colchicine (Colchicine) 0.6 mg DAILY PRN PO gout; Start 10/06/16 at 20:49 Ferrous Sulfate (Ferrous Sulfate (Ec)) 325 mg DAILY PO Last administered on 09:29; Admin Dose 325 MG; Start 10/06/16 at 20:49 Hydralazine HCl (Apresoline) 25 mg Q8H PRN PO SPB ABOVE 160; Start 10/06/16 at 20:49 Acetaminophen/ Hydrocodone Bitart ([place] (10/325)) 1 tab Q4H PRN PO PAIN Last administered on 10/21/16 11:43; Admin Dose 1 TAB; Start 10/06/16 at 20:49 Lactulose (Enulose) 20 gm Q8 PRN PO CONSTIPATION; Start 10/06/16 at 20:49 Heparin Sodium (Porcine) (Heparin (5000 Units/0.5 ml)) 5,000 unit Q12 SC Last administered on 10/21/16 09:30; Admin Dose 5,000 UNIT; Start 10/06/16 at 20:49 Hydralazine HCl (Apresoline) 10 mg Q6H PRN IV if BP > 170; Start 10/06/16 at 20 :49 Quetiapine Fumarate (Seroquel) 100 mg QHS PO Last administered on 10/20/16 20: 39; Admin Dose 100 MG; Start 10/06/16 at 20:49 Amlodipine Besylate (Norvasc) 10 mg DAILY PO Last administered on 10/21/16 09: 28; Admin Dose 10 MG; Start 10/06/16 at 20:49 Docusate Sodium (Colace) 100 mg BID PO Last administered on 10/21/16 09:25; Admin Dose 100 MG; Start 10/07/16 at 09:00 Senna (Senokot) 1 tab HS PO Last administered on 10/20/16 20:39; Admin Dose 1 TAB; Start 10/07/16 at 21:00 Bisacodyl (Dulcolax Supp) 10 mg DAILY PRN [place] CONSTIPATION; Start 10/07/16 at 03 :00 Magnesium Hydroxide (Milk Of Mag) 30 ml BID PRN PO CONSTIPATION; Start at 03:00 Diagnostic Test (Pha) (Accucheck) 1 ea 02 XX Last administered on 10/12/16 02: 07; Admin Dose 1 EA; Start 10/08/16 at 02:00 Mupirocin (Bactroban) 1 applic BID TOP Last administered on 10/21/16 09:28; Admin Dose 1 APPLIC; Start 10/08/16 at 21:00 Insulin Glargine (Lantus) 10 unit DAILY@20 SC Last administered on 10/20/16 20 :48; Admin Dose 10 UNIT; Start 10/11/16 at 22:00 Hydromorphone HCl 1 mg 1 mg Q3H PRN IV PAIN Last administered on 10/21/16 07: 33; Admin Dose 1 MG; Start 10/15/16 at 17:00 Sodium Chloride (1/2 NS) 1,000 ml @ 70 mls/hr [id number] IV Last administered on 10/21/16 11:17; Admin Dose 70 MLS/HR; Start 10/17/16 at 18:30 MARIA ANTONIA GERMAN Oct 21, 2016 12:54
--- NOTE | 2016-10-21 18:53 | PN ---
DATE: 10/21/2016 SUBJECTIVE: Urinary retention. The patient has a suprapubic tube and also had urinary tract infect ion. The patient has been voiding, but he still has a high residual. OBJECTIVE: VITAL SIGNS: His temperature is 98.3, pulse is 55, respirations 18, blood pressure 128/76. ABDOMEN: Soft. He does have a G-tube in place and he is still waiting to be seen by the gastroente rologist to consider removing the G-tube. His suprapubic tube is in place and it is blocked with a catheter plug and only opened when the patient voids to check his postvoid residual. The patient bhatia s been voiding. The patient recorded as 200, 300 and 200 mL of urine and that is not clear whether it is postvoid residual or if that is what he voided. The suprapubic tube post-voiding drainage has been 200, 300, and 200 mL, therefore the patient will need to continue to urinate and whenever he u rinates, open the suprapubic tube and drain the postvoid residual. Dictated By: FELIX ROY/GORGE Conf#: [id number] DID#: [id number]
[2016-10-21 19:18] VITALS: BP 148/78; RESP 19
[2016-10-21] MEDS: SENNA TAB PO SCH (20:42)
[2016-10-21] MEDS: QUETIAPINE 100 MG TAB PO SCH (20:42)
[2016-10-21] MEDS: ATORVASTATIN 10 MG TAB PO SCH (20:42)
[2016-10-21] MEDS: INSULIN GLARGINE [LANtus] 3 ML PEN SC SCH (20:53)
[2016-10-22] MEDS: ACCUCHECK AT 2AM (Patients on SS coverage) XX SCH (02:00)
[2016-10-22] MEDS: PANTOPRAZOLE (EC) 40 MG TAB PO SCH (05:27)
[2016-10-22] MEDS: SOD CHLORIDE 0.45% 1,000 ML IV SCH (06:41)
[2016-10-22 07:30] VITALS: BP 140/77; RESP 18
[2016-10-22] MEDS: Insulin NOVOLOG SS MODERATE Algorithm (SS with meals and bedtime) SC SCH ×4 (07:35→20:28)
[2016-10-22] MEDS: INSULIN ASPART [NOVOLOG] 3 ML PEN SC SCH ×3 (08:20→17:43)
[2016-10-22] MEDS: NYSTATIN SUSP 5 ML CUP PO SCH ×3 (08:22→20:25)
[2016-10-22] MEDS: AMLODIPINE 10 MG TAB PO SCH (08:23)
[2016-10-22] MEDS: FEBUXOSTAT 40 MG TABLET PO SCH (08:23)
[2016-10-22] MEDS: METOPROLOL 100 MG TAB PO SCH ×2 (08:23→20:26)
[2016-10-22] MEDS: PSYLLIUM 28% PACKET PO SCH (08:23)
[2016-10-22] MEDS: COLCHICINE 0.6 MG TAB PO SCH (08:23)
[2016-10-22] MEDS: FERROUS SULFATE (EC) 325 MG TAB PO SCH (08:23)
[2016-10-22] MEDS: TAMSULOSIN (SR) 0.4 MG CAP PO SCH (08:24)
[2016-10-22] MEDS: ALLOPURINOL 100 MG TAB PO SCH (08:24)
[2016-10-22] MEDS: DOCUSATE SODIUM 100 MG CAP PO SCH ×2 (08:24→20:25)
[2016-10-22] MEDS: ASCORBIC ACID 500 MG TAB PO SCH (08:24)
[2016-10-22] MEDS: LACTOBACILLUS CHEW TAB PO SCH ×3 (08:24→20:25)
[2016-10-22] MEDS: ARTIFICIAL TEARS 15 ML OPH BOTH EYES SCH ×4 (08:25→20:25)
[2016-10-22] MEDS: HEPARIN 5,000 UNIT/0.5 ML SYG SC SCH ×2 (08:25→20:28)
[2016-10-22] MEDS: MUPIROCIN 2% 22 GM OINT TOP SCH ×2 (08:25→20:29)
--- NOTE | 2016-10-22 10:57 | CONS ---
Date/Time of Note Date/Time of Note DATE: 10/22/16 TIME: 10:54 Consult Date/Type/Reason Admit Date/Time Oct 06, 2016 at 19:58 Subjective Patient comfortable Objective pulm-cta min assist ambulation Vital Signs Date Time Temp Pulse Resp B/P Pulse Ox O2 Delivery O2 Flow Rate FiO2 10/22/16 07:30 98.2 51 18 140/77 96 10/20/16 20:32 Room Air Intake and Output 10/21/16 10/21/16 10/22/16 15:00 23:00 07:00 Intake Total 450 ml 1580 ml 840 ml Output Total 200 ml 700 ml Balance 250 ml 880 ml 840 ml Results/Medications Result Diagram: 10/18/16 0630 10/18/16 0640 Results 24 hrs Laboratory Tests Test 10/21/16 12:06 10/21/16 17:07 10/21/16 20:41 10/22/16 07:31 Bedside Glucose 138 99 115 81 Medications Current Medications Ondansetron HCl (Zofran Inj) 4 mg Q6H PRN IV NAUSEA AND/OR VOMITING; Start at 20:49 Oxycodone/ Acetaminophen (Percocet (5/ 325)) 1 tab Q6H PRN PO PAIN; Start 10/06 at 20:49 Acetaminophen (Tylenol Tab) 500 mg Q6H PRN PO PAIN AND OR ELEVATED TEMP; Start 10/06/16 at 20:49 Allopurinol (Zyloprim) 100 mg DAILY PO Last administered on 10/22/16 08:24; Admin Dose 100 MG; Start 10/06/16 at 20:49 Eye Lubricant (Artificial Tears Oph) 2 drop QID BOTH EYES Last administered on 10/22/16 08:25; Admin Dose 2 DROP; Start 10/06/16 at 20:49 Atorvastatin Calcium (Lipitor) 10 mg QHS PO Last administered on 10/21/16 20: 42; Admin Dose 10 MG; Start 10/06/16 at 20:49 Febuxostat (Uloric) 40 mg DAILY PO Last administered on 10/22/16 08:23; Admin Dose 40 MG; Start 10/06/16 at 20:49 Lactobacillus Acidoph/Bulgaricus (Floranex) 1 tab TID PO Last administered on 08:24; Admin Dose 1 TAB; Start 10/06/16 at 20:49 Metoprolol Tartrate (Lopressor) 100 mg BID PO Last administered on 10/22/16 08 :23; Admin Dose 100 MG; Start 10/06/16 at 20:49 Nystatin (Nystatin Susp) 5 ml TID PO Last administered on 10/22/16 08:22; Admin Dose 5 ML; Start 10/06/16 at 20:49 Pantoprazole (Protonix Tab) 40 mg DAILY@06 PO Last administered on 10/22/16 05 :27; Admin Dose 40 MG; Start 10/06/16 at 20:49 Psyllium Hydrophilic Mucilloid (Metamucil) 1 pkt DAILY PO Last administered on 10/22/16 08:23; Admin Dose 1 PKT; Start 10/06/16 at 20:49 Tamsulosin HCl (Flomax) 0.4 mg DAILY PO Last administered on 10/22/16 08:24; Admin Dose 0.4 MG; Start 10/06/16 at 20:49 Miscellaneous Information 1 ea NOTE XX ; Start 10/06/16 at 20:49 Glucose (Glutose) 15 gm Q15M PRN PO DECREASED GLUCOSE; Start 10/06/16 at 20:49 Glucose (Glutose) 22.5 gm Q15M PRN PO DECREASED GLUCOSE; Start 10/06/16 at 20: 49 Dextrose (D50w Syringe) 25 ml Q15M PRN IV DECREASED GLUCOSE; Start 10/06/16 at 20:49 Dextrose (D50w Syringe) 50 ml Q15M PRN IV DECREASED GLUCOSE; Start 10/06/16 at 20:49 Glucagon (Glucagen) 1 mg Q15M PRN IM DECREASED GLUCOSE; Start 10/06/16 at 20:49 Glucose (Glutose) 15 gm Q15M PRN BUCCAL DECREASED GLUCOSE; Start 10/06/16 at 20 :49 Colchicine (Colchicine) 0.6 mg DAILY PO Last administered on 10/22/16 08:23; Admin Dose 0.6 MG; Start 10/06/16 at 20:49 Ascorbic Acid (Vitamin C) 500 mg DAILY PO Last administered on 10/22/16 08:24 ; Admin Dose 500 MG; Start 10/06/16 at 20:49 Clonidine (Catapres) 0.1 mg Q12H PRN PO SBP ABOVE 160; Start 10/06/16 at 20:49 Colchicine (Colchicine) 0.6 mg DAILY PRN PO gout; Start 10/06/16 at 20:49 Ferrous Sulfate (Ferrous Sulfate (Ec)) 325 mg DAILY PO Last administered on 08:23; Admin Dose 325 MG; Start 10/06/16 at 20:49 Hydralazine HCl (Apresoline) 25 mg Q8H PRN PO SPB ABOVE 160; Start 10/06/16 at 20:49 Acetaminophen/ Hydrocodone Bitart ([place] ()) 1 tab Q4H PRN PO PAIN Last administered on 10/21/16 16:55; Admin Dose 1 TAB; Start 10/06/16 at 20:49 Lactulose (Enulose) 20 gm Q8 PRN PO CONSTIPATION Last administered on 10:34; Admin Dose 20 GM; Start 10/06/16 at 20:49 Heparin Sodium (Porcine) (Heparin (5000 Units/0.5 ml)) 5,000 unit Q12 SC Last administered on 10/22/16 08:25; Admin Dose 5,000 UNIT; Start 10/06/16 at 20:49 Hydralazine HCl (Apresoline) 10 mg Q6H PRN IV if BP > 170; Start 10/06/16 at 20 :49 Quetiapine Fumarate (Seroquel) 100 mg QHS PO Last administered on 10/21/16 20: 42; Admin Dose 100 MG; Start 10/06/16 at 20:49 Amlodipine Besylate (Norvasc) 10 mg DAILY PO Last administered on 10/22/16 08: 23; Admin Dose 10 MG; Start 10/06/16 at 20:49 Docusate Sodium (Colace) 100 mg BID PO Last administered on 10/22/16 08:24; Admin Dose 100 MG; Start 10/07/16 at 09:00 Senna (Senokot) 1 tab HS PO Last administered on 10/21/16 20:42; Admin Dose 1 TAB; Start 10/07/16 at 21:00 Bisacodyl (Dulcolax Supp) 10 mg DAILY PRN [place] CONSTIPATION; Start 10/07/16 at 03 :00 Magnesium Hydroxide (Milk Of Mag) 30 ml BID PRN PO CONSTIPATION; Start at 03:00 Diagnostic Test (Pha) (Accucheck) 1 ea 02 XX Last administered on 10/12/16 02: 07; Admin Dose 1 EA; Start 10/08/16 at 02:00 Mupirocin (Bactroban) 1 applic BID TOP Last administered on 10/22/16 08:25; Admin Dose 1 APPLIC; Start 10/08/16 at 21:00 Insulin Glargine (Lantus) 10 unit DAILY@20 SC Last administered on 10/21/16 20 :53; Admin Dose 10 UNIT; Start 10/11/16 at 22:00 Hydromorphone HCl 1 mg 1 mg Q3H PRN IV PAIN Last administered on 10/21/16 17: 42; Admin Dose 1 MG; Start 10/15/16 at 17:00 Sodium Chloride (1/2 NS) 1,000 ml @ 70 mls/hr [id number] IV Last administered on 10/22/16 06:41; Admin Dose 70 MLS/HR; Start 10/17/16 at 18:30 Assessment/Plan Additional Assessment/Plan Rehab- acute enceph/h.o. CVA Overall steady progress. Family training has been going well. Anticipate dc tomorrow GI-await GT removal -followed by urology, voind well. Spurapubic cath in place ID- continue antibiotics A/CKI HTN BPH Hyperlipid MORGAN RANGEL MD Oct 22, 2016 10:57
--- NOTE | 2016-10-22 12:33 | PN ---
Date/Time of Note Date/Time of Note DATE: 10/22/16 TIME: 12:27 Assessment/Plan VTE Prophylaxis VTE Prophylaxis Intervention: SCD's Lines/Catheters IV [facility] (from [facility] Peripheral IV Urinary Cath still in place: No (suprapubic) Assessment/Plan Chief Complaint/Hosp Course ASSESSMENT AND PLAN: 1. Acute encephalopathy, resolved. 2. Urinary tract infection with cultures positive for Klebsiella pneumoniae and Providencia stuartii, s/p treatment. 3. Chronic kidney disease stage III/IV. Continue to monitor BUN and creatinine. Avoid nephrotoxic medication. 4. Diabetes mellitus. Continue NovoLog per sliding scale. 5. Hypertension. Continue Norvasc and Lopressor. 7. Hyperlipidemia. Continue Lipitor. 8. Gout. Continue patient on allopurinol, colchicine and Uloric. 9. History of intracranial hemorrhage and history of ventriculoperitoneal shunt. 10. Neurogenic bladder and urinary retention, S/p suprapubic catheter insertion today by Dr Fay, urology on 10/14. 11. 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 12. G tube, patient tolerates PO diet well, patient and patient's daughter request for d/c the G-tube. Dr. Alamo is following in gastroenterology consultation. Continue heparin for deep venous thrombosis prophylaxis. Further recommendations based on clinical course. Plan of care discussed with Dr. Cartagena. Problems: Subjective 24 Hr Interval Summary Free Text/Dictation No acute events overnight, patient looks comfortable, pending G-tube discontinue. Exam/Review of Systems Vital Signs Vitals Vital Signs Date Time Temp Pulse Resp B/P Pulse Ox O2 Delivery O2 Flow Rate FiO2 10/22/16 07:30 98.2 51 18 140/77 96 10/20/16 20:32 Room Air Intake and Output 10/21/16 10/21/16 10/22/16 15:00 23:00 07:00 Intake Total 450 ml 1580 ml 840 ml Output Total 200 ml 700 ml Balance 250 ml 880 ml 840 ml Exam GENERAL: Well-developed, well-nourished gentleman. No acute distress. HEENT: Head is atraumatic, normocephalic. Pupils equally round, reactive to light and accommodation. NECK: Supple. No cervical lymphadenopathy, no thyromegaly. CHEST: Lungs clear bilaterally. There are no rhonchi, wheezes, rales noted. CARDIOVASCULAR: Normal S1, S2. No murmurs, gallops, clicks, rubs noted. ABDOMEN: Round, soft, nondistended, nontender. Bowel sounds present. The patient has a G-tube with intact stoma. EXTREMITIES: No edema, clubbing, cyanosis. GENITOURINARY: Suprapubic catheter. SKIN: No rash, petechiae noted. NEUROLOGIC: The patient is awake, alert and oriented x3. Results Result Diagram: 10/18/16 0630 10/18/16 0640 Results 24 hrs Laboratory Tests Test 10/21/16 17:07 10/21/16 20:41 10/22/16 07:31 10/22/16 11:54 Bedside Glucose 99 115 81 112 Medications Medications Current Medications Ondansetron HCl (Zofran Inj) 4 mg Q6H PRN IV NAUSEA AND/OR VOMITING; Start at 20:49 Oxycodone/ Acetaminophen (Percocet (5/ 325)) 1 tab Q6H PRN PO PAIN; Start 10/06 at 20:49 Acetaminophen (Tylenol Tab) 500 mg Q6H PRN PO PAIN AND OR ELEVATED TEMP; Start 10/06/16 at 20:49 Allopurinol (Zyloprim) 100 mg DAILY PO Last administered on 10/22/16 08:24; Admin Dose 100 MG; Start 10/06/16 at 20:49 Eye Lubricant (Artificial Tears Oph) 2 drop QID BOTH EYES Last administered on 10/22/16 12:23; Admin Dose 2 DROP; Start 10/06/16 at 20:49 Atorvastatin Calcium (Lipitor) 10 mg QHS PO Last administered on 10/21/16 20: 42; Admin Dose 10 MG; Start 10/06/16 at 20:49 Febuxostat (Uloric) 40 mg DAILY PO Last administered on 10/22/16 08:23; Admin Dose 40 MG; Start 10/06/16 at 20:49 Lactobacillus Acidoph/Bulgaricus (Floranex) 1 tab TID PO Last administered on 12:23; Admin Dose 1 TAB; Start 10/06/16 at 20:49 Metoprolol Tartrate (Lopressor) 100 mg BID PO Last administered on 10/22/16 08 :23; Admin Dose 100 MG; Start 10/06/16 at 20:49 Nystatin (Nystatin Susp) 5 ml TID PO Last administered on 10/22/16 12:23; Admin Dose 5 ML; Start 10/06/16 at 20:49 Pantoprazole (Protonix Tab) 40 mg DAILY@06 PO Last administered on 10/22/16 05 :27; Admin Dose 40 MG; Start 10/06/16 at 20:49 Psyllium Hydrophilic Mucilloid (Metamucil) 1 pkt DAILY PO Last administered on 10/22/16 08:23; Admin Dose 1 PKT; Start 10/06/16 at 20:49 Tamsulosin HCl (Flomax) 0.4 mg DAILY PO Last administered on 10/22/16 08:24; Admin Dose 0.4 MG; Start 10/06/16 at 20:49 Miscellaneous Information 1 ea NOTE XX ; Start 10/06/16 at 20:49 Glucose (Glutose) 15 gm Q15M PRN PO DECREASED GLUCOSE; Start 10/06/16 at 20:49 Glucose (Glutose) 22.5 gm Q15M PRN PO DECREASED GLUCOSE; Start 10/06/16 at 20: 49 Dextrose (D50w Syringe) 25 ml Q15M PRN IV DECREASED GLUCOSE; Start 10/06/16 at 20:49 Dextrose (D50w Syringe) 50 ml Q15M PRN IV DECREASED GLUCOSE; Start 10/06/16 at 20:49 Glucagon (Glucagen) 1 mg Q15M PRN IM DECREASED GLUCOSE; Start 10/06/16 at 20:49 Glucose (Glutose) 15 gm Q15M PRN BUCCAL DECREASED GLUCOSE; Start 10/06/16 at 20 :49 Colchicine (Colchicine) 0.6 mg DAILY PO Last administered on 10/22/16 08:23; Admin Dose 0.6 MG; Start 10/06/16 at 20:49 Ascorbic Acid (Vitamin C) 500 mg DAILY PO Last administered on 10/22/16 08:24 ; Admin Dose 500 MG; Start 10/06/16 at 20:49 Clonidine (Catapres) 0.1 mg Q12H PRN PO SBP ABOVE 160; Start 10/06/16 at 20:49 Colchicine (Colchicine) 0.6 mg DAILY PRN PO gout; Start 10/06/16 at 20:49 Ferrous Sulfate (Ferrous Sulfate (Ec)) 325 mg DAILY PO Last administered on 08:23; Admin Dose 325 MG; Start 10/06/16 at 20:49 Hydralazine HCl (Apresoline) 25 mg Q8H PRN PO SPB ABOVE 160; Start 10/06/16 at 20:49 Acetaminophen/ Hydrocodone Bitart ([place] (10/325)) 1 tab Q4H PRN PO PAIN Last administered on 10/21/16 16:55; Admin Dose 1 TAB; Start 10/06/16 at 20:49 Lactulose (Enulose) 20 gm Q8 PRN PO CONSTIPATION Last administered on 10:34; Admin Dose 20 GM; Start 10/06/16 at 20:49 Heparin Sodium (Porcine) (Heparin (5000 Units/0.5 ml)) 5,000 unit Q12 SC Last administered on 10/22/16 08:25; Admin Dose 5,000 UNIT; Start 10/06/16 at 20:49 Hydralazine HCl (Apresoline) 10 mg Q6H PRN IV if BP > 170; Start 10/06/16 at 20 :49 Quetiapine Fumarate (Seroquel) 100 mg QHS PO Last administered on 10/21/16 20: 42; Admin Dose 100 MG; Start 10/06/16 at 20:49 Amlodipine Besylate (Norvasc) 10 mg DAILY PO Last administered on 10/22/16 08: 23; Admin Dose 10 MG; Start 10/06/16 at 20:49 Docusate Sodium (Colace) 100 mg BID PO Last administered on 10/22/16 08:24; Admin Dose 100 MG; Start 10/07/16 at 09:00 Senna (Senokot) 1 tab HS PO Last administered on 10/21/16 20:42; Admin Dose 1 TAB; Start 10/07/16 at 21:00 Bisacodyl (Dulcolax Supp) 10 mg DAILY PRN [place] CONSTIPATION; Start 10/07/16 at 03 :00 Magnesium Hydroxide (Milk Of Mag) 30 ml BID PRN PO CONSTIPATION; Start at 03:00 Diagnostic Test (Pha) (Accucheck) 1 ea 02 XX Last administered on 10/12/16 02: 07; Admin Dose 1 EA; Start 10/08/16 at 02:00 Mupirocin (Bactroban) 1 applic BID TOP Last administered on 10/22/16 08:25; Admin Dose 1 APPLIC; Start 10/08/16 at 21:00 Insulin Glargine (Lantus) 10 unit DAILY@20 SC Last administered on 10/21/16 20 :53; Admin Dose 10 UNIT; Start 10/11/16 at 22:00 Hydromorphone HCl 1 mg 1 mg Q3H PRN IV PAIN Last administered on 10/21/16 17: 42; Admin Dose 1 MG; Start 10/15/16 at 17:00 Sodium Chloride (1/2 NS) 1,000 ml @ 70 mls/hr [id number] IV Last administered on 10/22/16 06:41; Admin Dose 70 MLS/HR; Start 10/17/16 at 18:30 MARIA ANTONIA GERMAN Oct 22, 2016 12:33
--- NOTE | 2016-10-22 14:21 | CONS ---
DATE OF ADMISSION: 10/06/2016 DATE OF CONSULTATION: GASTROENTEROLOGY CONSULTATION Dear Dr. Cartagena: Thank you for asking me to see Mr. Field in GI consultation. HISTORY OF PRESENT ILLNESS: The patient, as you know, is a 66-year-old male who is admitte d to the hospital because of stroke, and from there he is and currently in the rehab unit. He had a G-tube placed sometime in the past because of difficulty in swallowing, and apparently the past few days he has been able to eat food by himself, and hence, the G-tube removal has been requested. Th e patient has no specific complaints. REVIEW OF SYSTEM: Positive for a urinary tract infection, chronic kidney disease, diabetes, hyperte nsion, dyslipidemia, gout, history of intracranial hemorrhage, and history of a ventriculoperitoneal shunt, neurogenic bladder, MRSA G-tube in place. PAST MEDICAL HISTORY: The patient is unable to give me any additional history from a GI standpoint, he just wants the G-tube out. MEDICATIONS: Include: 1. Dilaudid. 2. NovoLog Insulin. 3. Lantus. 4. Bactroban. 5. Senokot. 6. NovoLog. 7. Colace. 8. Dulcolax. 9. Milk of magnesia. 10. Zofran. 11. Uloric. 12. Lipitor. 13. Zyloprim. 14. Percocet. PHYSICAL EXAMINATION: GENERAL: The patient is a 66-year-old gentleman who at this time is alert. He talks a few words. CARDIOVASCULAR: Normal heart sounds. RESPIRATORY: Normal breath sounds. ABDOMEN: Shows soft abdomen. There is a G-tube in place at this time. LABORATORY WORKUP: Hemoglobin 11.0, WBC count 4200. Chemistry: Potassium 4.2. CLINICAL IMPRESSION: The patient is able to eat food by himself, hence the G-tube removal has been requested. By using gentle vertical traction, I removed the existing tube from the stomach. This a narendra was cleaned with Betadine and alcohol, dressing were applied. PLAN: Start feeding him after 4 hours. Keep n.p.o. for 4 hours. Dictated By: JESS MOURA/GORGE Conf#: [id number] DID#: [id number] CC: VANESSA CARTAGENA MD;*[facility]*
--- NOTE | 2016-10-22 18:52 | PN ---
DATE: 10/22/2016 SUBJECTIVE: Urinary retention. The patient has a suprapubic tube and he has been voiding and he is comfortable. OBJECTIVE: VITAL SIGNS: His temperature is 98.2, pulse is 51, respiration 18, blood pressure 140/77. ABDOMEN: Soft. LABORATORY DATA: Blood sugar is about 90. The urine culture, no growth after 48 hours. The patien t has been voiding and he voided 250. PVR by suprapubic tube is 145. He voided 175, PVR of 98. Th e patient is not, therefore, in urinary retention, but he certainly is not emptying his bladder comp letely. RECOMMENDATION: To continue to monitor his voiding and open the suprapubic tube after he voids to c heck his postvoid residual. Also, we shall continue him on the tamsulosin and hopefully that would help him empty his bladder better. Dictated By: FELIX ARREDONDO MD BB/NTS Conf#: [id number] DID#: [id number] CC: MORGAN RANGEL MD;*EndCC*
[2016-10-22 19:19] VITALS: BP 149/86; RESP 20
[2016-10-22] MEDS: INSULIN GLARGINE [LANtus] 3 ML PEN SC SCH (20:25)
[2016-10-22] MEDS: SENNA TAB PO SCH (20:25)
[2016-10-22] MEDS: QUETIAPINE 100 MG TAB PO SCH (20:25)
[2016-10-22] MEDS: ATORVASTATIN 10 MG TAB PO SCH (20:25)
[2016-10-23] MEDS: ACCUCHECK AT 2AM (Patients on SS coverage) XX SCH (02:00)
[2016-10-23] MEDS: PANTOPRAZOLE (EC) 40 MG TAB PO SCH (05:38)
[2016-10-23 07:32] VITALS: BP 104/66; RESP 18
[2016-10-23] MEDS: Insulin NOVOLOG SS MODERATE Algorithm (SS with meals and bedtime) SC SCH (07:35)
[2016-10-23] MEDS: INSULIN ASPART [NOVOLOG] 3 ML PEN SC SCH ×2 (08:38→12:44)
[2016-10-23] MEDS: ARTIFICIAL TEARS 15 ML OPH BOTH EYES SCH ×2 (08:40→12:45)
[2016-10-23] MEDS: MUPIROCIN 2% 22 GM OINT TOP SCH (08:40)
[2016-10-23] MEDS: NYSTATIN SUSP 5 ML CUP PO SCH (08:40)
[2016-10-23] MEDS: ALLOPURINOL 100 MG TAB PO SCH (08:41)
[2016-10-23] MEDS: COLCHICINE 0.6 MG TAB PO SCH (08:41)
[2016-10-23] MEDS: FEBUXOSTAT 40 MG TABLET PO SCH (08:41)
[2016-10-23] MEDS: FERROUS SULFATE (EC) 325 MG TAB PO SCH (08:41)
[2016-10-23] MEDS: ASCORBIC ACID 500 MG TAB PO SCH (08:41)
[2016-10-23] MEDS: TAMSULOSIN (SR) 0.4 MG CAP PO SCH (08:41)
[2016-10-23] MEDS: LACTOBACILLUS CHEW TAB PO SCH (08:42)
[2016-10-23] MEDS: HEPARIN 5,000 UNIT/0.5 ML SYG SC SCH (08:42)
[2016-10-23] MEDS: PSYLLIUM 28% PACKET PO SCH (08:42)
[2016-10-23] MEDS: DOCUSATE SODIUM 100 MG CAP PO SCH (08:43)
[2016-10-23] MEDS: METOPROLOL 100 MG TAB PO SCH (09:00)
[2016-10-23] MEDS: AMLODIPINE 10 MG TAB PO SCH (09:00)
--- NOTE | 2016-10-23 11:42 | PN ---
Date/Time of Note Date/Time of Note DATE: 10/23/16 TIME: 11:38 Assessment/Plan VTE Prophylaxis VTE Prophylaxis Intervention: SCD's Lines/Catheters IV [facility] [place] Urinary Cath still in place: Yes (suprapubic CATH) Reason Cath still needed: urinary retention Assessment/Plan Chief Complaint/Hosp Course ASSESSMENT AND PLAN: 1. Acute encephalopathy, resolved. 2. Urinary tract infection with cultures positive for Klebsiella pneumoniae and Providencia stuartii, s/p treatment. 3. Chronic kidney disease stage III/IV. Continue to monitor BUN and creatinine. Avoid nephrotoxic medication. 4. Diabetes mellitus. Continue NovoLog per sliding scale. 5. Hypertension. Continue Norvasc and Lopressor. 7. Hyperlipidemia. Continue Lipitor. 8. Gout. Continue patient on allopurinol, colchicine and Uloric. 9. History of intracranial hemorrhage and history of ventriculoperitoneal shunt. 10. Neurogenic bladder and urinary retention, S/p suprapubic catheter insertion today by Dr Fay, urology on 10/14. 11. 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 12. G tube, patient tolerates PO diet well, patient and patient's daughter request for d/c the G-tube. Dr. Alamo is following in gastroenterology consultation. Gtube d/zenaida. patient restarted on diet, tolerates it well. D/c planning. Further recommendations based on clinical course. Plan of care discussed with Dr. Cartagena. Problems: Subjective 24 Hr Interval Summary Free Text/Dictation G tube d/zenaida, patient restarted on diet, tolerates it well. Exam/Review of Systems Vital Signs Vitals Vital Signs Date Time Temp Pulse Resp B/P Pulse Ox O2 Delivery O2 Flow Rate FiO2 10/23/16 07:32 98.4 51 18 104/66 96 10/20/16 20:32 Room Air Intake and Output 10/22/16 10/22/16 10/23/16 15:00 23:00 07:00 Intake Total 730 ml 1240 ml 100 ml Output Total 350 ml 420 ml 420 ml Balance 380 ml 820 ml -320 ml Exam GENERAL: Well-developed, well-nourished gentleman. No acute distress. HEENT: Head is atraumatic, normocephalic. Pupils equally round, reactive to light and accommodation. NECK: Supple. No cervical lymphadenopathy, no thyromegaly. CHEST: Lungs clear bilaterally. There are no rhonchi, wheezes, rales noted. CARDIOVASCULAR: Normal S1, S2. No murmurs, gallops, clicks, rubs noted. ABDOMEN: Round, soft, nondistended, nontender. Bowel sounds present. The patient has a G-tube with intact stoma. EXTREMITIES: No edema, clubbing, cyanosis. GENITOURINARY: Suprapubic catheter. SKIN: No rash, petechiae noted. NEUROLOGIC: The patient is awake, alert and oriented x3. Results Results 24 hrs Laboratory Tests Test 10/22/16 11:54 10/22/16 17:03 10/22/16 20:22 10/23/16 07:43 Bedside Glucose 112 90 100 88 Medications Medications Current Medications Ondansetron HCl (Zofran Inj) 4 mg Q6H PRN IV NAUSEA AND/OR VOMITING; Start at 20:49 Oxycodone/ Acetaminophen (Percocet (5/ 325)) 1 tab Q6H PRN PO PAIN; Start 10/06 at 20:49 Acetaminophen (Tylenol Tab) 500 mg Q6H PRN PO PAIN AND OR ELEVATED TEMP; Start 10/06/16 at 20:49 Allopurinol (Zyloprim) 100 mg DAILY PO Last administered on 10/23/16 08:41; Admin Dose 100 MG; Start 10/06/16 at 20:49 Eye Lubricant (Artificial Tears Oph) 2 drop QID BOTH EYES Last administered on 10/23/16 08:40; Admin Dose 2 DROP; Start 10/06/16 at 20:49 Atorvastatin Calcium (Lipitor) 10 mg QHS PO Last administered on 10/22/16 20: 25; Admin Dose 10 MG; Start 10/06/16 at 20:49 Febuxostat (Uloric) 40 mg DAILY PO Last administered on 10/23/16 08:41; Admin Dose 40 MG; Start 10/06/16 at 20:49 Lactobacillus Acidoph/Bulgaricus (Floranex) 1 tab TID PO Last administered on 08:42; Admin Dose 1 TAB; Start 10/06/16 at 20:49 Metoprolol Tartrate (Lopressor) 100 mg BID PO Last administered on 10/22/16 20 :26; Admin Dose 100 MG; Start 10/06/16 at 20:49 Nystatin (Nystatin Susp) 5 ml TID PO Last administered on 10/23/16 08:40; Admin Dose 5 ML; Start 10/06/16 at 20:49 Pantoprazole (Protonix Tab) 40 mg DAILY@06 PO Last administered on 10/23/16 05 :38; Admin Dose 40 MG; Start 10/06/16 at 20:49 Psyllium Hydrophilic Mucilloid (Metamucil) 1 pkt DAILY PO Last administered on 10/22/16 08:23; Admin Dose 1 PKT; Start 10/06/16 at 20:49 Tamsulosin HCl (Flomax) 0.4 mg DAILY PO Last administered on 10/23/16 08:41; Admin Dose 0.4 MG; Start 10/06/16 at 20:49 Miscellaneous Information 1 ea NOTE XX ; Start 10/06/16 at 20:49 Glucose (Glutose) 15 gm Q15M PRN PO DECREASED GLUCOSE; Start 10/06/16 at 20:49 Glucose (Glutose) 22.5 gm Q15M PRN PO DECREASED GLUCOSE; Start 10/06/16 at 20: 49 Dextrose (D50w Syringe) 25 ml Q15M PRN IV DECREASED GLUCOSE; Start 10/06/16 at 20:49 Dextrose (D50w Syringe) 50 ml Q15M PRN IV DECREASED GLUCOSE; Start 10/06/16 at 20:49 Glucagon (Glucagen) 1 mg Q15M PRN IM DECREASED GLUCOSE; Start 10/06/16 at 20:49 Glucose (Glutose) 15 gm Q15M PRN BUCCAL DECREASED GLUCOSE; Start 10/06/16 at 20 :49 Colchicine (Colchicine) 0.6 mg DAILY PO Last administered on 10/23/16 08:41; Admin Dose 0.6 MG; Start 10/06/16 at 20:49 Ascorbic Acid (Vitamin C) 500 mg DAILY PO Last administered on 10/23/16 08:41 ; Admin Dose 500 MG; Start 10/06/16 at 20:49 Clonidine (Catapres) 0.1 mg Q12H PRN PO SBP ABOVE 160; Start 10/06/16 at 20:49 Colchicine (Colchicine) 0.6 mg DAILY PRN PO gout; Start 10/06/16 at 20:49 Ferrous Sulfate (Ferrous Sulfate (Ec)) 325 mg DAILY PO Last administered on 08:41; Admin Dose 325 MG; Start 10/06/16 at 20:49 Hydralazine HCl (Apresoline) 25 mg Q8H PRN PO SPB ABOVE 160; Start 10/06/16 at 20:49 Acetaminophen/ Hydrocodone Bitart ([place] ()) 1 tab Q4H PRN PO PAIN Last administered on 10/21/16 16:55; Admin Dose 1 TAB; Start 10/06/16 at 20:49 Lactulose (Enulose) 20 gm Q8 PRN PO CONSTIPATION Last administered on 10:34; Admin Dose 20 GM; Start 10/06/16 at 20:49 Heparin Sodium (Porcine) (Heparin (5000 Units/0.5 ml)) 5,000 unit Q12 SC Last administered on 10/23/16 08:42; Admin Dose 5,000 UNIT; Start 10/06/16 at 20:49 Hydralazine HCl (Apresoline) 10 mg Q6H PRN IV if BP > 170; Start 10/06/16 at 20 :49 Quetiapine Fumarate (Seroquel) 100 mg QHS PO Last administered on 10/22/16 20: 25; Admin Dose 100 MG; Start 10/06/16 at 20:49 Amlodipine Besylate (Norvasc) 10 mg DAILY PO Last administered on 10/22/16 08: 23; Admin Dose 10 MG; Start 10/06/16 at 20:49 Docusate Sodium (Colace) 100 mg BID PO Last administered on 10/22/16 20:25; Admin Dose 100 MG; Start 10/07/16 at 09:00 Senna (Senokot) 1 tab HS PO Last administered on 10/22/16 20:25; Admin Dose 1 TAB; Start 10/07/16 at 21:00 Bisacodyl (Dulcolax Supp) 10 mg DAILY PRN [place] CONSTIPATION; Start 10/07/16 at 03 :00 Magnesium Hydroxide (Milk Of Mag) 30 ml BID PRN PO CONSTIPATION; Start at 03:00 Diagnostic Test (Pha) (Accucheck) 1 ea 02 XX Last administered on 10/12/16 02: 07; Admin Dose 1 EA; Start 10/08/16 at 02:00 Mupirocin (Bactroban) 1 applic BID TOP Last administered on 10/23/16 08:40; Admin Dose 1 APPLIC; Start 10/08/16 at 21:00 Insulin Glargine (Lantus) 10 unit DAILY@20 SC Last administered on 10/22/16 20 :25; Admin Dose 10 UNIT; Start 10/11/16 at 22:00 Hydromorphone HCl 1 mg 1 mg Q3H PRN IV PAIN Last administered on 10/21/16 17: 42; Admin Dose 1 MG; Start 10/15/16 at 17:00 Sodium Chloride (1/2 NS) 1,000 ml @ 70 mls/hr [id number] IV Last administered on 10/22/16 06:41; Admin Dose 70 MLS/HR; Start 10/17/16 at 18:30 MARIA ANTONIA GERMAN Oct 23, 2016 11:41
--- NOTE | 2016-10-23 12:01 | CONS ---
DATE OF ADMISSION: 10/06/2016 DATE OF CONSULTATION: The patient at this time has no complaints. He had a G-tube in place which was removed and he is ab le to eat well now and he has no known gastrostomy leak. On examination gastrostomy site seems to be healing valve. CLINICAL IMPRESSION: Healing gastrostomy site and tolerating the diet and no leakage noted through t he gastrostomy. PLAN: Recommend continue to get local care to the gastrostomy site once a day. Dictated By: JESS PANDEY MD NC/NTS Conf#: [id number] DID#: [id number] CC: VANESSA LOPES MD;*End[facility]*
--- NOTE | 2016-10-23 14:59 | PN ---
DATE: 10/23/2016 SUBJECTIVE PROBLEM: Urinary retention and the patient has a suprapubic tube and he has been voiding , but his postvoid residual has been high. OBJECTIVE: VITAL SIGNS: His temperature is 98.4, pulse is 51, respirations 18, blood pressure 104/66. ABDOMEN: Suprapubic tube is draining well and when it is open, and the area around the tract is renaldo ar and there is no sign of infection or inflammation. The patient has been voiding. The patient voided about 120, postvoid residual was 36. Another time , the patient voided 175, postvoid residual was 98. Another time he voided 250, but the postvoid re sidual was 145. ASSESSMENT AND PLAN: In summary, this patient does have a high postvoid residual, but he is not in urinary retention and therefore he could go home with the suprapubic tube and then he could follow u p either with his own urologist, who is Dr. Alberts, and/or he could also follow up with me in the office. We will basically have to close the suprapubic tube and see how his doing on his own. Then if he voids well, we could discontinue the suprapubic tube and he would not need an indwelling glid ing Potter catheter. Dictated By: FELIX ROY/GORGE Conf#: [id number] DID#: [id number]
[2016-10-23] MEDS ORDERED: INSULIN ASPART [NOVOLOG] 3 ML PEN SC SCH ×2 (17:35)
--- NOTE | 2016-10-23 19:54 | PN ---
DATE: 10/23/2016 PSYCHOLOGY -- INDIVIDUAL SESSION [id number]: This is a followup on a patient who was seen last week. Th e patient is prepared to be discharged today. The patient was seen in his room in his bed. The pat ient's daughters were there and helped with interpretation. The patient still feels overwhelmed by his illnesses. The patient's daughters reported that he was very much like this prior to entering [facility]. There is some progress that he made while he has been in the hospital, but still has s ome major difficulties. I did work to try to urge the patient to continue to work on his physical a nd emotional health. Dictated By: KAMILA BELTRÁN PHD CABRERA/GORGE Conf#: [id number] DID#: [id number]
[2016-10-24] MEDS ORDERED: ACCUCHECK XX SCH ×2 (02:00)
== END 2016-10-23 13:20 | disposition home health service (06) | DRG 91 ==
LOC: VRC 19:58
PROVIDERS: ADMIT Physical Medicine & Rehabilitation; ATTEND Internal Medicine
PROC: F07Z5FZ Bed Mobility Treatment using Assistive, Adaptive, Supportive or Protective Equipment (ICD-10-PCS; principal; 2016-10-06)
PROC: F07Z8FZ Transfer Training Treatment using Assistive, Adaptive, Supportive or Protective Equipment (ICD-10-PCS; 2016-10-06)
PROC: F07Z9FZ Gait Training/Functional Ambulation Treatment using Assistive, Adaptive, Supportive or Protective Equipment (ICD-10-PCS; 2016-10-06)
PROC: F08Z2FZ Grooming/Personal Hygiene Treatment using Assistive, Adaptive, Supportive or Protective Equipment (ICD-10-PCS; 2016-10-06)
PROC: F08Z0FZ Bathing/Showering Techniques Treatment using Assistive, Adaptive, Supportive or Protective Equipment (ICD-10-PCS; 2016-10-06)
PROC: F08Z1FZ Dressing Techniques Treatment using Assistive, Adaptive, Supportive or Protective Equipment (ICD-10-PCS; 2016-10-06)
PROC: 0T9B30Z Drainage of Bladder with Drainage Device, Percutaneous Approach (ICD-10-PCS; 2016-10-14)
DX: G92 Toxic encephalopathy (principal); G82.50 Quadriplegia, unspecified; N18.4 Chronic kidney disease, stage 4 (severe); R65.10 Systemic inflammatory response syndrome (SIRS) of non-infectious origin without acute organ dysfunction; N17.9 Acute kidney failure, unspecified; E11.22 Type 2 diabetes mellitus with diabetic chronic kidney disease; N39.0 Urinary tract infection, site not specified; I12.9 Hypertensive chronic kidney disease with stage 1 through stage 4 chronic kidney disease, or unspecified chronic kidney disease; M10.9 Gout, unspecified; E78.5 Hyperlipidemia, unspecified; B96.1 Klebsiella pneumoniae [K. pneumoniae] as the cause of diseases classified elsewhere; F32.89 Other specified depressive episodes; N31.9 Neuromuscular dysfunction of bladder, unspecified; R33.9 Retention of urine, unspecified; N35.9 Urethral stricture, unspecified; Z74.09 Other reduced mobility; N40.0 Benign prostatic hyperplasia without lower urinary tract symptoms; R13.10 Dysphagia, unspecified; Z93.1 Gastrostomy status; Z86.73 Personal history of transient ischemic attack (TIA), and cerebral infarction without residual deficits; Z98.2 Presence of cerebrospinal fluid drainage device
CPT/HCPCS: 70450; 80048; 80053; 81003; 82962; 84153; 84154; 84560; 85025; 85610; 85730; 87040; 87081; 87086; 92507; 92523; 92610; 95852; 97110; 97112; 97116; 97150; 97163; 97166; 97530; 97535; 97542; J0692; J0696; J1170; J1815; J3370; J7050; L1820

== ENCOUNTER 2016-11-07 13:02 | Day surgery (SDC) | payer MEDICARE, OTHER ==
[~2016-11-07] VITALS: Ht 167.6 cm; Wt 66.6 kg
[2016-11-07 14:04] VITALS: Ht 167.6 cm; Wt 66.6 kg
[2016-11-07 14:42] VITALS: BP 173/91; PULSE 61; RESP 13
--- NOTE | 2016-11-07 15:39 | GILP ---
DATE OF PROCEDURE: NAME OF PROCEDURE: Colonoscopy. SURGEON: Ladan Salinas MD PREOPERATIVE DIAGNOSIS: Screening colonoscopy. POSTOPERATIVE DIAGNOSES: 1. Colonoscopy all the way to the cecum. 2. Internal hemorrhoids. 3. No colon neoplasm was identified. INDICATION FOR THE PROCEDURE: Mr. George Field is a 66-year-old male patient who was scheduled for screening colonoscopy. The procedure and possible complications were well explained to the patient. He understood and cons ented to the procedure. DESCRIPTION OF PROCEDURE: Under the influence of anesthesia the colonoscope was carefully introduce d in the rectum and under direct vision it was advanced all the way to the cecum. FINDINGS: The patient had internal hemorrhoids. No colon neoplasm was identified. He tolerated the procedure very well and there was no complication from the procedure. At the end o f the procedure he was awake with stable vital signs and he was discharged home to the care of his [facility]. IMPRESSION: 1. Colonoscopy all the way to the cecum. 2. Internal hemorrhoids. 3. No colon neoplasm was identified. PLAN: Next screening colonoscopy in 10 years. Dictated By: LADAN GRAYSON/GORGE Conf#: [id number] DID#: [id number]
[2016-11-07 15:44] VITALS: BP 162/84; PULSE 62; RESP 18
--- NOTE | 2016-11-08 06:20 | CONS ---
DATE OF ADMISSION: 11/07/2016 DATE OF CONSULTATION: TYPE OF CONSULTATION: Preoperative gastroenterology. Dear Dr. Mclean: I thank you very much for this kind referral. HISTORY OF PRESENT ILLNESS: Mr. George Field is a 66-year-old male patient who has been referred to me for further evaluation of dysphagia. The patient is status post stroke with left hemiparesis. The patient had dysphagia , so patient had endoscopic gastrostomy tube placement done. Now, the dysphagia has improved. He is able to take meals by mouth, so the gastrostomy tube has been removed. The patient denies any history of abdominal pain. He does not have any nausea or vomiting. There is no history of peptic ulcer disease. He is not taking any nonsteroidal anti-inflammatory agents. He is status post cholecystectomy. He does not have any fever, chills or jaundice. There is no history of liver disease. The patient denies any change in the bowel habit or rectal bleeding. There is no past history of colon neoplasm. He never had screening colonoscopy. He is hypertensive. He has diabetes. There is no history of heart disease or lung problem. He has got chronic kidney disease. SOCIAL HISTORY: He is a nonsmoker. He does not abuse alcohol. FAMILY HISTORY: Negative for gastrointestinal tract neoplasm. ALLERGIES: HE STATES HE IS ALLERGIC TO MORPHINE. MEDICATIONS: 1. Amlodipine. 2. Metoprolol. 3. Insulin. PHYSICAL EXAMINATION: VITAL SIGNS: He is 5 feet 6 inches tall and he weighs 151 pounds. BMI is 29. His blood pressure is 142/88. HEART: Examination of the heart reveals normal first and second heart sounds. LUNGS: Clear. ABDOMEN: Soft without any distention. Liver and spleen are not palpable. There are no masses. There is no focal tenderness. Normal bowel sounds are heard. The gastrostomy site has healed very well. CENTRAL NERVOUS SYSTEM: Reveals evidence of left hemiparesis. IMPRESSION: 1. Dysphagia. 2. Status post stroke with left hemiparesis. 3. Status post endoscopic gastrostomy tube placement. 4. Now the patient is able to take meals by mouth and the gastrostomy tube has been removed. 5. Patient never had screening colonoscopy and he needs one. 6. Hypertension. 7. Diabetes mellitus. 8. Chronic kidney disease. 9. Status post cholecystectomy. 10. HISTORY OF ALLERGY TO MORPHINE. 11. Status post craniotomy and ventriculoperitoneal shunt. PLAN: 1. Continue oral feeding. 2. Screening colonoscopy was recommended. 3. Because of the chronic kidney disease, he will need GoLYTELY preparation. 4. Because of the multiple medical problems, he will need monitored anesthesia care. 5. The patient will be followed by the primary MD for the management of hypertension. The procedure and possible complications are well explained to the patient and his family, and they understand. I thank you once again. With warmest personal regards, Dictated By: LADAN GRAYSON/GORGE Conf#: [id number] DID#: [id number] RACQUEL
== END 2016-11-07 15:44 | disposition home or self-care (01) ==
LOC: GIL 13:02
PROVIDERS: ATTEND Internal Medicine Gastroenterology
DX: Z12.11 Encounter for screening for malignant neoplasm of colon (principal); K64.8 Other hemorrhoids; I10 Essential (primary) hypertension; E11.9 Type 2 diabetes mellitus without complications; Z86.73 Personal history of transient ischemic attack (TIA), and cerebral infarction without residual deficits
CPT/HCPCS: 82962; G0121

== ENCOUNTER 2016-12-01 12:37 | Emergency (ER) | payer MEDICARE, OTHER ==
[~2016-12-01] VITALS: Ht 167.6 cm; Wt 68.5 kg
[~2016-12-01 12:37] MED LIST changes: -DEXT1CAP PO; -FEBU40TA GTB; -HEP30MU30 IJ; -HYDR-3671 GTB; -HYDR-762 GTB; -IPRA3AMP INHALATION; -LACT20SO2 GTB; -LACTINEX GTB; -METAM GTB; -TAMS0.4C2 GTB; -VANC500V10 GTB; -[UNRECOGNIZED DRUG - CODE] PO
[2016-12-01 13:30] VITALS: Ht 167.6 cm; Wt 68.5 kg
--- NOTE | 2016-12-01 18:18 | ERD ---
ER Documentation Chief Complaint Date/Time DATE: 12/01/16 TIME: 18:09 Chief Complaint Pt with super pubic catheter placement 10/25, cath not draining X 1 day. HPI This is a 66-year-old male brought into the ER by daughter for genitourinary complaint. Patient currently has a suprapubic catheter that was placed on [address] Saab. Daughter states that today patient has had regular incontinent voiding from penis as well as drainage from suprapubic catheter. Patient denies any bladder distention or pain. No dysuria. Urine is clear and yellow in catheter collection bag. No fevers or chills. No back or abdominal pain. Patient has slight erythema and discomfort from catheter insertion site. ROS All systems reviewed and are negative except as per history of present illness. Medications Home Meds Reported Medications Ascorbic Acid* (Vitamin C* Liq) 500 Mg/5 Ml Syrup, 500 MG GTB DAILY, ML 01/12/16 Pantoprazole* (Pantoprazole*) 40 Mg Tablet.dr, 40 MG GTB DAILY, TAB 01/12/16 Insulin Lispro (Humalog) 100 U/Ml Cartridge, 0 SC SLIDING SCALE ACHS, EA 01/12/16 Ferrous Sulfate* (Ferrous Sulfate*) 325 Mg Tabec, 325 MG GTB DAILY, TAB 01/12/16 Epoetin tali* (Epogen* (ESRD)) 10,000 Unit/1 Ml Vial, 96853 UNIT SC , FRI, SAT, VIAL 01/12/16 Clonidine Hcl* (Clonidine Hcl*) 0.1 Mg Tab, 0.1 MG GTB BID Y for ELEVATED BLOOD PRESSURE, TAB HOLD IF SBP<110, HR<60 01/12/16 Atorvastatin Calcium (Atorvastatin Calcium) 10 Mg Tablet, 10 MG GTB QHS, #30 TAB 01/12/16 Artificial Tears* (Artificial Tears* Ophth) 15 ml Opht, 2 DROP BOTH EYES QID, EA 01/12/16 Amlodipine Besylate* (Norvasc*) 5 Mg Tablet, 5 MG GTB DAILY, TAB HOLD FOR SBP LESS THAN 110 OR HR LESS THAN 60 01/12/16 Allopurinol* (Allopurinol*) 100 Mg Tablet, 100 MG GTB DAILY, TAB 01/12/16 Acetaminophen* (Acetaminophen*) 500 MG Extra Strength Tablet, 500 MG GTB Q6 Y for PAIN AND OR ELEVATED TEMP, TAB 01/12/16 Colchicine* (Colcrys*) 0.6 Mg Tablet, 0.6 MG GTB DAILY Y for gout, TAB 05/30/14 Metoprolol Tartrate* (Lopressor*) 100 Mg Tablet, 100 MG GTB BID, TAB HOLD IF SBP<110, HR<60 05/30/14 Allergies Allergies: Coded Allergies: No Known Drug Allergies (Verified Allergy, Unknown, 11/07/16) PMhx/Soc History of Surgery: Yes (choley, left knee opa) Anesthesia Reaction: Yes Hx Neurological Disorder: Yes (cva l side weakness, is able to move all ext., shunt placement) Hx Respiratory Disorders: No Hx Cardiac Disorders: Yes (high chol, htn) Hx Psychiatric Problems: No Hx Miscellaneous Medical Probl: No Hx Alcohol Use: No Hx Substance Use: No Hx Tobacco Use: No Smoking Status: Never smoker Physical Exam Vitals Vital Signs Date Time Temp Pulse Resp B/P Pulse Ox O2 Delivery O2 Flow Rate FiO2 12/01/16 13:30 97.1 64 16 125/81 98 Physical Exam Const: No acute distress, alert Head: Atraumatic Eyes: Normal Conjunctiva ENT: Normal External Ears, Nose and Mouth. Neck: Full range of motion..~ No meningismus. Resp: Clear to auscultation bilaterally Cardio: Regular rate and rhythm, no murmurs Abd: Soft, non tender, non distended. Normal bowel sounds. Suprapubic catheter insertion site below the navel. Insertion site has mild erythema and swelling. no abscess noted. Skin: No petechiae or rashes Back: No midline or flank tenderness Ext: No cyanosis, or edema Neur: Awake and alert Psych: Normal Mood and Affect Procedures/MDM MDM: 66-year-old male presents emergency department for genitourinary complaint. Daughter states that patient has had incontinent voiding from penis as well as drainage from suprapubic catheter collection bag. Denies any abdominal or back pain. Patient has slight erythema around suprapubic catheter insertion site. No purulent drainage or abscess formation. Suprapubic catheter drainage is normal. Urine looks yellow and clear. No fever or chills. Vital signs are stable. Consulted Dr. Soto regarding this patient. Dr. Soto performed a bladder scan and bladder appears normal and non-distended. We agree that patient is appropriate for outpatient management and is instructed to follow up with Urology, Dr. Sanabria or Dr. Ontiveros. Resources provided. Departure Diagnosis: Primary Impression: Genitourinary symptoms Condition: Stable Patient Instructions: Caring for Your Suprapubic Catheter Referrals: VENKATESH ZENG MD (PCP) FELIX ARREDONDO MD, GALESH L. MD Additional Instructions: Follow-up with Dr. Sanabria or Dr. Alberts. Return to ED for any high fever, chest pain, difficulty breathing, shortness breath, wheezing, vomiting, diarrhea, abdominal pain or any new or worsening symptoms. PASQUALE GONZALEZ NP Dec 01, 2016 18:18
== END 2016-12-01 15:25 | disposition home or self-care (01) ==
LOC: FTE 12:37
DX: T83.198A Other mechanical complication of other urinary devices and implants, initial encounter (principal); I12.9 Hypertensive chronic kidney disease with stage 1 through stage 4 chronic kidney disease, or unspecified chronic kidney disease; N18.9 Chronic kidney disease, unspecified; E11.9 Type 2 diabetes mellitus without complications; Y73.8 Miscellaneous gastroenterology and urology devices associated with adverse incidents, not elsewhere classified; Z79.4 Long term (current) use of insulin
CPT/HCPCS: 99282

== ENCOUNTER 2017-03-13 10:05 | Emergency (ER) | payer MEDICARE, OTHER ==
[~2017-03-13] VITALS: Ht 162.6 cm; Wt 72.7 kg
[2017-03-13 10:10] VITALS: Ht 162.6 cm; Wt 72.7 kg
--- NOTE | 2017-03-13 13:17 | ERD ---
ER Documentation Chief Complaint Date/Time DATE: 03/13/17 TIME: 13:14 Chief Complaint aloc x last night HPI Patient is a 66-year-old male with complicated past medical history including metabolic encephalopathy, intracranial hemorrhage requiring FAMILY MEDICINE PHYSICIAN shunt. He was hospitalized for 1 month 4 months ago, at which time he had a G-tube and was functionally quadriplegic. Since that time he has had a significant improvement. He presents to the ER today for a episode of confusion that occurred last night. His states that he was hallucinating and was agitated. This morning he complained of gradual onset headache, nausea, and dizziness described as vertigo. There is no vomiting or fever. There is no focal weakness or facial droop. He also complains of suprapubic pain. The patient has an indwelling suprapubic catheter. The patient states that he is currently asymptomatic, and his states that he is at baseline at this time. He has an appointment with his PMD within the next week. He has chronic kidney disease and last creatinine was 2.8. ROS All systems reviewed and are negative except as per history of present illness. Medications Home Meds Active Scripts Sulfamethoxazole/Trimethoprim* (Bactrim Ds* Tablet) 1 Each Tablet, 1 TAB PO BID , #20 TAB Prov:VIKA PATTEN MD 03/13/17 Reported Medications Ascorbic Acid* (Vitamin C* Liq) 500 Mg/5 Ml Syrup, 500 MG GTB DAILY, ML 01/12/16 Pantoprazole* (Pantoprazole*) 40 Mg Tablet.dr, 40 MG GTB DAILY, TAB 01/12/16 Insulin Lispro (Humalog) 100 U/Ml Cartridge, 0 SC SLIDING SCALE ACHS, EA 01/12/16 Ferrous Sulfate* (Ferrous Sulfate*) 325 Mg Tabec, 325 MG GTB DAILY, TAB 01/12/16 Epoetin tali* (Epogen* (ESRD)) 10,000 Unit/1 Ml Vial, 48989 UNIT SC TUES, FRI, SAT, VIAL 01/12/16 Clonidine Hcl* (Clonidine Hcl*) 0.1 Mg Tab, 0.1 MG GTB BID Y for ELEVATED BLOOD PRESSURE, TAB HOLD IF SBP<110, HR<60 01/12/16 Atorvastatin Calcium (Atorvastatin Calcium) 10 Mg Tablet, 10 MG GTB QHS, #30 TAB 01/12/16 Artificial Tears* (Artificial Tears* Ophth) 15 ml Opht, 2 DROP BOTH EYES QID, EA 01/12/16 Amlodipine Besylate* (Norvasc*) 5 Mg Tablet, 5 MG GTB DAILY, TAB HOLD FOR SBP LESS THAN 110 OR HR LESS THAN 60 01/12/16 Allopurinol* (Allopurinol*) 100 Mg Tablet, 100 MG GTB DAILY, TAB 01/12/16 Acetaminophen* (Acetaminophen*) 500 MG Extra Strength Tablet, 500 MG GTB Q6 Y for PAIN AND OR ELEVATED TEMP, TAB 01/12/16 Colchicine* (Colcrys*) 0.6 Mg Tablet, 0.6 MG GTB DAILY Y for gout, TAB 05/30/14 Metoprolol Tartrate* (Lopressor*) 100 Mg Tablet, 100 MG GTB BID, TAB HOLD IF SBP<110, HR<60 05/30/14 Allergies Allergies: Coded Allergies: No Known Drug Allergies (Verified Allergy, Unknown, 03/13/17) PMhx/Soc Past medical history: Diabetes mellitus, hypertension, intracranial hemorrhage, chronic kidney disease Past surgical history: Cholecystectomy, suprapubic catheter, G-tube, FAMILY MEDICINE PHYSICIAN shunt Social history: Denies tobacco or alcohol. History of Surgery: Yes (choley, left knee opa) Anesthesia Reaction: Yes Hx Neurological Disorder: Yes (cva l side weakness, is able to move all ext., shunt placement) Hx Respiratory Disorders: No Hx Cardiac Disorders: Yes (high chol, htn) Hx Psychiatric Problems: No Hx Miscellaneous Medical Probl: No Hx Alcohol Use: No Hx Substance Use: No Hx Tobacco Use: No FmHx Noncontributory Physical Exam Vitals Vital Signs Date Time Temp Pulse Resp B/P Pulse Ox O2 Delivery O2 Flow Rate FiO2 03/13/17 14:48 81 16 180/113 99 Room Air 03/13/17 10:10 97.0 68 18 144/90 98 Physical Exam Const: Alert, no acute distress Head: Atraumatic Eyes: Normal Conjunctiva, no pallor, no icterus ENT: Normal External Ears, Nose and Mouth. Mucous membranes moist Neck: Full range of motion..~ No meningismus. Resp: Clear to auscultation bilaterally, no wheezes, no rales Cardio: Regular rate and rhythm, no murmurs Abd: Soft, non tender, non distended. No guarding, no rebound, no pulsatile mass. No erythematous at suprapubic tube site. Skin: No petechiae or rashes Back: No midline or flank tenderness Ext: No cyanosis, or edema Neur: Awake and alert, cranial nerves II through XII intact bilaterally, strength and sensation grossly intact in 4 extremities. Psych: Normal Mood and Affect Result Diagram: 03/13/17 1320 03/13/17 1320 Results 24 hrs Laboratory Tests Test 03/13/17 13:18 03/13/17 13:20 Ammonia 12umol/l White Blood Count 7.610^3/ul Red Blood Count 5.2410^6/ul Hemoglobin 16.3g/dl Hematocrit 47.6% Mean Corpuscular Volume 90.8fl Mean Corpuscular Hemoglobin 31.1pg Mean Corpuscular Hemoglobin Concent 34.2g/dl Red Cell Distribution Width 12.9% Platelet Count 98850^3/UL Mean Platelet Volume 11.2fl Neutrophils % 60.0% Lymphocytes % 30.5% Monocytes % 7.3% Eosinophils % 0.9% Basophils % 0.9% Nucleated Red Blood Cells % 0.0/100WBC Neutrophils # 4.510^3/ul Lymphocytes # 2.310^3/ul Monocytes # 0.610^3/ul Eosinophils # 0.110^3/ul Basophils # 0.110^3/ul Nucleated Red Blood Cells # 0.010^3/ul Prothrombin Time 11.6Sec Prothrombin Time Ratio 0.9 INR International Normalized Ratio 0.85 Urine Color YELLOW Urine Clarity SLIGHTLY CLOUDY Urine pH 5.0 Urine Specific [place] 1.013 Urine Ketones NEGATIVEmg/dL Urine Nitrite NEGATIVEmg/dL Urine Bilirubin NEGATIVEmg/dL Urine Urobilinogen NEGATIVEmg/dL Urine Leukocyte Esterase 3+Aquiles/ul Urine Microscopic RBC 6/HPF Urine Microscopic WBC 27/HPF Urine Bacteria FEW/HPF Urine Hemoglobin NEGATIVEmg/dL Urine Glucose NEGATIVEmg/dL Urine Total Protein 2+mg/dl Sodium Level 147mmol/L Potassium Level 4.5mmol/L Chloride Level 105mmol/L Carbon Dioxide Level 24mmol/L Anion Gap 23 Blood Urea Nitrogen 33mg/dl Creatinine 2.64mg/dl Glucose Level 100mg/dl Calcium Level 9.4mg/dl Total Bilirubin 0.2mg/dl Direct Bilirubin 0.00mg/dl Indirect Bilirubin 0.2mg/dl Aspartate Amino Transf (AST/SGOT) 17IU/L Alanine Aminotransferase (ALT/SGPT) 20IU/L Alkaline Phosphatase 86IU/L Troponin I < 0.012ng/ml Total Protein 8.6g/dl Albumin 4.6g/dl Globulin 4.00g/dl Albumin/Globulin Ratio 1.15 Procedures/MDM EKG read by me: Time 1334, rate 78 Rhythm: Normal sinus Acra: Rightward axis Intervals: Normal ST-T waves: no ischemic changes Ectopy: No Q-waves: No pathologic Q waves. Poor R-wave progression. Impression: No evidence of ischemia or arrhythmia MDM: Patient is a 66-year-old male with history of FAMILY MEDICINE PHYSICIAN shunt after intracranial bleed and indwelling urinary catheter who presents to the ER with an episode of confusion and hallucinations last night. According to his , his symptoms have now resolved. Patient states that he is feeling well except for suprapubic discomfort. He has no fever or signs of sepsis. His UA is suggestive of UTI. He has benign abdominal exam and neurological exam. His head CT and other labs are unremarkable. He does not appear to be hallucinating or altered. I reviewed his prior urine cultures, and several have been negative, but the last culture was sensitive to Bactrim. He is not on warfarin. I will discharge him with a prescription for Bactrim, and have advised his to follow-up with PMD the next 2-3 days, and to follow-up on urine culture in the next 2-3 days. I also advised her on return precautions if he has evidence of recurrence of confusion or hallucinations, fever, or vomiting. The patient has renal insufficiency that is at baseline. He has no clinical signs of dehydration. Departure Diagnosis: Primary Impression: UTI (urinary tract infection) Urinary tract infection type: catheter-associated UTI Indwelling urinary catheter type: cystostomy catheter Encounter type: initial encounter Qualified Code: T83.510A - Urinary tract infection associated with cystostomy catheter, initial encounter Additional Impression: Altered mental status Altered mental status type: delirium Qualified Code: R41.0 - Delirium Condition: Stable VIKA PATTEN MD Mar 13, 2017 13:17
[2017-03-13 13:41] LABS: BASOPHIL # 0.1 10^3/ul (0.0-0.1); BASOPHILS % 0.9 % (0.0-2.0); EOSINOPHILS # 0.1 10^3/ul (0.0-0.5); EOSINOPHILS % 0.9 % (0.0-7.0); HEMATOCRIT 47.6 % (42.0-52.0); HEMOGLOBIN 16.3 g/dl (14.0-18.0); LYMPHOCYTES # 2.3 10^3/ul (0.8-2.9); LYMPHOCYTES % 30.5 % (15.0-51.0); MEAN CORPUSCULAR HEMOGLOBIN 31.1 pg (29.0-33.0); MEAN CORPUSCULAR HGB CONC 34.2 g/dl (32.0-37.0); MEAN CORPUSCULAR VOLUME 90.8 fl (82.0-101.0); MEAN PLATELET VOLUME 11.2 fl (7.4-10.4); MONOCYTE # 0.6 10^3/ul (0.3-0.9); MONOCYTES % 7.3 % (0.0-11.0); NEUTROPHIL # 4.5 10^3/ul (1.6-7.5); PLATELET COUNT 195 10^3/UL (140-415); RED BLOOD COUNT 5.24 10^6/ul (4.70-6.10); RED CELL DISTRIBUTION WIDTH 12.9 % (11.5-14.5); WHITE BLOOD COUNT 7.6 10^3/ul (4.8-10.8)
[2017-03-13 13:51] LABS: ADD UMIC YES; UR ASCORBIC ACID 20 mg/dL (NEGATIVE); UR BACTERIA FEW /HPF (NONE SEEN); UR BILIRUBIN (Dip) NEGATIVE (NEGATIVE); UR BLOOD (Dip) NEGATIVE (NEGATIVE); UR CLARITY SLIGHTLY CLOUDY (CLEAR); UR COLOR YELLOW (YELLOW); UR GLUCOSE (Dip) NEGATIVE (NEGATIVE); UR KETONES (Dip) NEGATIVE (NEGATIVE); UR LEUKOCYTE ESTERASE (Dip) 3+ Leu/ul (NEGATIVE); UR NITRITE (Dip) NEGATIVE (NEGATIVE); UR RBC 6 /HPF (0-5); UR SPECIFIC GRAVITY (Dip) 1.013 (1.003-1.030); UR TOTAL PROTEIN (Dip) 2+ mg/dl (NEGATIVE); UR UROBILINOGEN (Dip) NEGATIVE (NEGATIVE)
[2017-03-13 14:01] LABS: INR 0.85; PROTIME 11.6 Sec (12.2-14.2); PT RATIO 0.9
[2017-03-13 14:04] LABS: ALANINE AMINOTRANSFERASE 20 IU/L (13-69); ALBUMIN 4.6 g/dl (3.3-4.9); ALBUMIN/GLOBULIN RATIO 1.15; ALKALINE PHOSPHATASE 86 IU/L (42-121); ANION GAP 23 (8-16); ASPARTATE AMINO TRANSFERASE 17 IU/L (15-46); BILIRUBIN,INDIRECT 0.2 mg/dl (0-1.1); BILIRUBIN,TOTAL 0.2 mg/dl (0.2-1.3); BLOOD UREA NITROGEN 33 mg/dl (7-20); CALCIUM 9.4 mg/dl (8.4-10.2); CARBON DIOXIDE 24 mmol/L (21-31); CHLORIDE 105 mmol/L (97-110); CREATININE 2.64 mg/dl (0.61-1.24); GLUCOSE 100 mg/dl (70-220); POTASSIUM 4.5 mmol/L (3.5-5.1); SODIUM 147 mmol/L (135-144); TOTAL PROTEIN 8.6 g/dl (6.1-8.1)
[2017-03-13 14:25] LABS: TROPONIN-I < 0.012 ng/ml (0.00-0.12)
[2017-03-13 14:48] VITALS: BP 180/113; PULSE 81; RESP 16
--- NOTE | 2017-03-13 15:29 | RADRPT ---
PROCEDURE: CT Brain without contrast. CLINICAL INDICATION: Altered mental status. TECHNIQUE: CT scan of the brain was performed on a multidetector high-resolution CT scan. Axial im aging was obtained of the brain without contrast administration. Coronal and sagittal reformatted i mages were obtained from the axial source images. Standard CT scan of the head without contrast prot ocols were performed. The total exam CTDI equals 43.5 a mGy and the total exam DLP equals 720.23 mGy-cm. One or more of the following dose reduction techniques were used: - Automated exposure control. - Adjustment of the mA and/or kV according to patient size. Use of iterative reconstruction technique. COMPARISON: CT head without contrast 10/15/2016 FINDINGS: There is no significant change. Again noted is a right parietal ventriculostomy terminating lateral to the left lateral ventricle unchanged in position. There is no evidence of hydrocephalous. No m idline shift. Negative for intracranial masses or hemorrhages. No change in the mild encephalomala kamer[place] involving the superior left cerebellum. The orellana-white matter interfaces unremarkable. There i s mild generalized cerebral volume loss. Mild nonspecific chronic microvascular ischemic disease. Status post suboccipital craniotomy. No acute calvarial fractures. Paranasal sinuses and mastoids are unremarkable. Paranasal sinuses visualized and mastoids are unremarkable. IMPRESSION: 1. No significant change. 2. No change in the right parietal ventriculostomy as above without evidence of hydrocephalus. 3. Some a total occipital craniotomy with left superior cerebellar encephalomalacia unchanged. 4. Negative for intracranial masses hemorrhages or midline shift per 5. Mild generalized cerebral volume loss and nonspecific chronic microischemic disease. RPTAT:AAJJ Physician Shawn Date Time Electronically viewed and signed by Physician Shawn on 03/13/2017 15:29 BM/
[2017-03-13] MEDS ORDERED: SULF1TAB31 PO (15:59)
== END 2017-03-13 16:26 | disposition home or self-care (01) ==
LOC: E/R 10:05
DX: T83.510A Infection and inflammatory reaction due to cystostomy catheter, initial encounter (principal); R41.0 Disorientation, unspecified; E11.9 Type 2 diabetes mellitus without complications; I12.9 Hypertensive chronic kidney disease with stage 1 through stage 4 chronic kidney disease, or unspecified chronic kidney disease; N18.9 Chronic kidney disease, unspecified; Y73.8 Miscellaneous gastroenterology and urology devices associated with adverse incidents, not elsewhere classified; Z79.4 Long term (current) use of insulin
CPT/HCPCS: 36415; 70450; 80053; 81001; 82140; 84484; 85025; 85610; 93005

== ENCOUNTER 2017-05-12 09:52 | Inpatient (IN) | payer MEDICARE, OTHER ==
[~2017-05-12] VITALS: Ht 157.5 cm; Wt 78.0 kg
[~2017-05-12 09:52] MED LIST changes: +SULF1TAB31 PO
[2017-05-12 09:57] VITALS: Ht 157.5 cm; Wt 78.0 kg
[2017-05-12] MEDS ORDERED: CEFEPIME 2GM/50 ML (PMX) 50 ML IVPB STA (10:36)
[2017-05-12] MEDS ORDERED: SODIUM CHLORIDE 0.9% 1L BAG IV* STA (10:36)
[2017-05-12] MEDS ORDERED: ONDANSETRON 4 MG INJ IV PRN ×2 (11:00→15:30)
[2017-05-12] MEDS ORDERED: VANCOMYCIN 1 GM (PMX) 250 ML IVPB ONE (11:00)
[2017-05-12] MEDS ORDERED: ACETAMINOPHEN 325 MG TAB PO PRN ×2 (11:00→15:30)
[2017-05-12 11:24] LABS: BASOPHIL # 0.1 10^3/ul (0.0-0.1); BASOPHILS % 1.1 % (0.0-2.0); EOSINOPHILS # 0.1 10^3/ul (0.0-0.5); EOSINOPHILS % 1.4 % (0.0-7.0); HEMATOCRIT 45.7 % (42.0-52.0); HEMOGLOBIN 15.4 g/dl (14.0-18.0); LYMPHOCYTES # 1.9 10^3/ul (0.8-2.9); LYMPHOCYTES % 30.5 % (15.0-51.0); MEAN CORPUSCULAR HEMOGLOBIN 31.1 pg (29.0-33.0); MEAN CORPUSCULAR HGB CONC 33.7 g/dl (32.0-37.0); MEAN CORPUSCULAR VOLUME 92.3 fl (82.0-101.0); MEAN PLATELET VOLUME 11.6 fl (7.4-10.4); MONOCYTE # 0.7 10^3/ul (0.3-0.9); MONOCYTES % 10.3 % (0.0-11.0); NEUTROPHIL # 3.5 10^3/ul (1.6-7.5); NEUTROPHILS % 55.6 % (39.0-77.0); PLATELET COUNT 176 10^3/UL (140-415); POSITIVE DIFF @See below; RED BLOOD COUNT 4.95 10^6/ul (4.70-6.10); RED CELL DISTRIBUTION WIDTH 13.3 % (11.5-14.5); WHITE BLOOD COUNT 6.3 10^3/ul (4.8-10.8)
--- NOTE | 2017-05-12 11:32 | RADRPT ---
PROCEDURE: XR Chest. CLINICAL INDICATION: chest pain TECHNIQUE: Single frontal view of the chest was obtained COMPARISON: CT BRAIN 03/13/2017, 09/27/16 FINDINGS: The heart and mediastinum are within normal limits. There is a right-sided CHIEF DIGITAL OFFICER shunt noted. The lungs are clear. There is no pleural effusion or pneumothorax. RPTAT: AA IMPRESSION: No acute disease. .Pepe Casey MD, MD Date Time Electronically viewed and signed by .Pepe Casey MD, on 05/12/2017 11:32 .S/
[2017-05-12 11:42] LABS: ALANINE AMINOTRANSFERASE 20 IU/L (13-69); ALBUMIN 4.2 g/dl (3.3-4.9); ALKALINE PHOSPHATASE 85 IU/L (42-121); ANION GAP 15 (8-16); ASPARTATE AMINO TRANSFERASE 16 IU/L (15-46); BILIRUBIN,INDIRECT 0.1 mg/dl (0-1.1); BILIRUBIN,TOTAL 0.1 mg/dl (0.2-1.3); BLOOD UREA NITROGEN 41 mg/dl (7-20); CALCIUM 9.3 mg/dl (8.4-10.2); CARBON DIOXIDE 24 mmol/L (21-31); CHLORIDE 109 mmol/L (97-110); CREATININE 2.72 mg/dl (0.61-1.24); GLUCOSE 120 mg/dl (70-220); POTASSIUM 4.1 mmol/L (3.5-5.1); SODIUM 144 mmol/L (135-144)
[2017-05-12 11:44] LABS: PT RATIO 0.9
[2017-05-12 11:45] LABS: PARTIAL THROMBOPLASTIN TIME 28.2 Sec (25.0-35.0)
[2017-05-12 12:01] LABS: TROPONIN-I < 0.012 ng/ml (0.00-0.12)
[2017-05-12 12:20] LABS: ADD UMIC YES; UR ASCORBIC ACID 40 mg/dL (NEGATIVE); UR BACTERIA MODERATE /HPF (NONE SEEN); UR BILIRUBIN (Dip) NEGATIVE (NEGATIVE); UR BLOOD (Dip) 1+ mg/dL (NEGATIVE); UR CLARITY CLOUDY (CLEAR); UR COLOR YELLOW (YELLOW); UR GLUCOSE (Dip) NEGATIVE (NEGATIVE); UR KETONES (Dip) NEGATIVE (NEGATIVE); UR LEUKOCYTE ESTERASE (Dip) 3+ Leu/ul (NEGATIVE); UR NITRITE (Dip) NEGATIVE (NEGATIVE); UR RBC 25 /HPF (0-5); UR SPECIFIC GRAVITY (Dip) 1.012 (1.003-1.030); UR TOTAL PROTEIN (Dip) 2+ mg/dl (NEGATIVE); UR UROBILINOGEN (Dip) NEGATIVE (NEGATIVE)
[2017-05-12] MEDS ORDERED: DONE10TA7 PO (12:29)
[2017-05-12] MEDS ORDERED: DIVA500T7 PO (12:29)
[2017-05-12 12:30] LABS: INR 0.89
[2017-05-12] MEDS ORDERED: QUET100T32 PO (12:30)
[2017-05-12] MEDS ORDERED: ACET-141 PO (12:36)
[2017-05-12] MEDS ORDERED: ATOR10TA65 PO (12:37)
[2017-05-12] MEDS ORDERED: AMLO5TAB4 PO (12:37)
[2017-05-12] MEDS ORDERED: FER325 PO (12:38)
[2017-05-12] MEDS ORDERED: METO-407 PO (12:38)
[2017-05-12] MEDS ORDERED: TAMS0.4C2 PO (12:42)
[2017-05-12] MEDS ORDERED: CRAN450C PO (12:42)
[2017-05-12] MEDS ORDERED: ALBU8.5H3 INH (12:42)
[2017-05-12] MEDS ORDERED: MUPI15CR9 TOP (12:43)
[2017-05-12 13:45] VITALS: BP 188/96; PULSE 57; RESP 18
--- NOTE | 2017-05-12 14:00 | ERA ---
ER Documentation Chief Complaint Date/Time DATE: 05/12/17 TIME: 13:59 Chief Complaint body aches, weaness at times confsion HPI Patient is a 66-year-old male with dementia, diabetes, previous stroke, and previous kidney infection who presents with confusion. Please note the history and physical exam is limited secondary to the patient's mental status. The patient "has not been himself" for the past 2 days per the daughter. He has fevers. He has a history of kidney infection. He feels weak and cannot walk. He cannot do the activities of daily living that he normally can. He has been hallucinating and has not been sleeping well. He has been aggressive towards family. Upon review of old medical records the patient has multiple visits to the ER for various complaints. ROS All systems reviewed and are negative except as per history of present illness. Medications Home Meds Reported Medications Mupirocin Calcium* (Mupirocin*) 2% - 15 Gram Cream..g., 1 APPLIC TOP BID, #1 TUB APPLY TO TOES 05/12/17 Albuterol Sulfate* (Proair HFA*) 8.5 Gm Hfa.aer.ad, 2 PUFF INH Q6H Y for WHEEZING AND SOB, #1 INHALER 05/12/17 Cranberry Fruit Concentrate (CRANBERRY) 450 Mg Capsule, 450 MG PO DAILY, CAP 05/12/17 Tamsulosin Hcl* (Tamsulosin Hcl*) 0.4 Mg Cap.er.24h, 0.4 MG PO HS, CAP 05/12/17 Metoprolol Tartrate* (Lopressor*) 100 Mg Tablet, 100 MG PO BID, #60 TAB HOLD IF SBP LESS THAN 110 HR 60 05/12/17 Ferrous Sulfate* (Ferrous Sulfate*) 325 Mg Tabec, 325 MG PO DAILY, TAB 05/12/17 Atorvastatin Calcium (Atorvastatin Calcium) 10 Mg Tablet, 10 MG PO QHS, #30 TAB 05/12/17 Amlodipine Besylate* (Norvasc*) 5 Mg Tablet, 5 MG PO DAILY, TAB HOLD FOR SBP LESS [id number] OR HR THAN 60 05/12/17 Acetaminophen* (Acetaminophen*) 500 MG Extra Strength Tablet, 500 MG PO Q6 Y for PAIN AND OR ELEVATED TEMP, TAB 05/12/17 Quetiapine Fumarate* (Quetiapine Fumarate*) 100 Mg Tablet, 100 MG PO BID, TAB 05/12/17 Donepezil* (Donepezil*) 10 Mg Tablet, 10 MG PO DAILY, #30 TAB 05/12/17 Divalproex Sodium* (Depakote ER*) 500 Mg Tabsr, 500 MG PO BID, #30 TAB.SA 05/12/17 Metoprolol Tartrate* (Lopressor*) 100 Mg Tablet, 100 MG GTB BID, TAB HOLD IF SBP<110, HR<60 05/30/14 Discontinued Reported Medications Ascorbic Acid* (Vitamin C* Liq) 500 Mg/5 Ml Syrup, 500 MG GTB DAILY, ML 01/12/16 Pantoprazole* (Pantoprazole*) 40 Mg Tablet.dr, 40 MG GTB DAILY, TAB 01/12/16 Insulin Lispro (Humalog) 100 U/Ml Cartridge, 0 SC SLIDING SCALE ACHS, EA 01/12/16 Ferrous Sulfate* (Ferrous Sulfate*) 325 Mg Tabec, 325 MG GTB DAILY, TAB 01/12/16 Epoetin tali* (Epogen* (ESRD)) 10,000 Unit/1 Ml Vial, 70058 UNIT SC TUES, FRI, SAT, VIAL 01/12/16 Clonidine Hcl* (Clonidine Hcl*) 0.1 Mg Tab, 0.1 MG GTB BID Y for ELEVATED BLOOD PRESSURE, TAB HOLD IF SBP<110, HR<60 01/12/16 Atorvastatin Calcium (Atorvastatin Calcium) 10 Mg Tablet, 10 MG GTB QHS, #30 TAB 01/12/16 Artificial Tears* (Artificial Tears* Ophth) 15 ml Opht, 2 DROP BOTH EYES QID, EA 01/12/16 Amlodipine Besylate* (Norvasc*) 5 Mg Tablet, 5 MG GTB DAILY, TAB HOLD FOR SBP LESS THAN 110 OR HR LESS THAN 60 01/12/16 Allopurinol* (Allopurinol*) 100 Mg Tablet, 100 MG GTB DAILY, TAB 01/12/16 Acetaminophen* (Acetaminophen*) 500 MG Extra Strength Tablet, 500 MG GTB Q6 Y for PAIN AND OR ELEVATED TEMP, TAB 01/12/16 Colchicine* (Colcrys*) 0.6 Mg Tablet, 0.6 MG GTB DAILY Y for gout, TAB 05/30/14 Discontinued Scripts Sulfamethoxazole/Trimethoprim* (Bactrim Ds* Tablet) 1 Each Tablet, 1 TAB PO BID , #20 TAB Prov:VIKA PATTEN MD 03/13/17 Allergies Allergies: Coded Allergies: No Known Drug Allergies (Verified Allergy, Unknown, 05/12/17) PMhx/Soc History of Surgery: Yes (choley, left knee opa) Anesthesia Reaction: Yes Hx Neurological Disorder: Yes (cva l side weakness, is able to move all ext., shunt placement) Hx Respiratory Disorders: No Hx Cardiac Disorders: Yes (high chol, htn) Hx Psychiatric Problems: No Hx Miscellaneous Medical Probl: No Hx Alcohol Use: No Hx Substance Use: No Hx Tobacco Use: No Smoking Status: Never smoker FmHx Family History: diabetes Physical Exam Vitals Vital Signs Date Time Temp Pulse Resp B/P Pulse Ox O2 Delivery O2 Flow Rate FiO2 05/12/17 09:57 97.5 82 18 132/82 99 Physical Exam Const: Confusion Head: Atraumatic Eyes: Normal Conjunctiva ENT: Normal External Ears, Nose and Mouth. Neck: Full range of motion..~ No meningismus. Resp: Clear to auscultation bilaterally Cardio: Regular rate and rhythm, no murmurs Abd: Soft, non tender, non distended. Normal bowel sounds Skin: No petechiae or rashes Back: No midline or flank tenderness Ext: No cyanosis, or edema Neur: Awake but confused Result Diagram: 05/12/17 1035 05/12/17 1035 Results 24 hrs Laboratory Tests Test 05/12/17 10:35 05/12/17 10:45 White Blood Count 6.310^3/ul Red Blood Count 4.9510^6/ul Hemoglobin 15.4g/dl Hematocrit 45.7% Mean Corpuscular Volume 92.3fl Mean Corpuscular Hemoglobin 31.1pg Mean Corpuscular Hemoglobin Concent 33.7g/dl Red Cell Distribution Width 13.3% Platelet Count 18335^3/UL Mean Platelet Volume 11.6fl Neutrophils % 55.6% Lymphocytes % 30.5% Monocytes % 10.3% Eosinophils % 1.4% Basophils % 1.1% Nucleated Red Blood Cells % 0.0/100WBC Neutrophils # 3.510^3/ul Lymphocytes # 1.910^3/ul Monocytes # 0.710^3/ul Eosinophils # 0.110^3/ul Basophils # 0.110^3/ul Nucleated Red Blood Cells # 0.010^3/ul Prothrombin Time 12.0Sec Prothrombin Time Ratio 0.9 INR International Normalized Ratio 0.89 Activated Partial Thromboplast Time 28.2Sec Sodium Level 144mmol/L Potassium Level 4.1mmol/L Chloride Level 109mmol/L Carbon Dioxide Level 24mmol/L Anion Gap 15 Blood Urea Nitrogen 41mg/dl Creatinine 2.72mg/dl Glucose Level 120mg/dl Lactic Acid Level 2.2mmol/L Calcium Level 9.3mg/dl Total Bilirubin 0.1mg/dl Direct Bilirubin 0.00mg/dl Indirect Bilirubin 0.1mg/dl Aspartate Amino Transf (AST/SGOT) 16IU/L Alanine Aminotransferase (ALT/SGPT) 20IU/L Alkaline Phosphatase 85IU/L Troponin I < 0.012ng/ml Total Protein 8.0g/dl Albumin 4.2g/dl Globulin 3.80g/dl Albumin/Globulin Ratio 1.10 Urine Color YELLOW Urine Clarity CLOUDY Urine pH 5.0 Urine Specific [place] 1.012 Urine Ketones NEGATIVEmg/dL Urine Nitrite NEGATIVEmg/dL Urine Bilirubin NEGATIVEmg/dL Urine Urobilinogen NEGATIVEmg/dL Urine Leukocyte Esterase 3+[place]qu[place]/ul Urine Microscopic RBC 25/HPF Urine Microscopic WBC > 182/HPF Urine Bacteria MODERATE/HPF Urine Hemoglobin 1+mg/dL Urine Glucose NEGATIVEmg/dL Urine Total Protein 2+mg/dl Current Medications Medications (Trade) Dose Ordered Sig/Piper Route PRN Reason Start Time Stop Time Status Last Admin Dose Admin Sodium Chloride 2420 ml 2,420 ml BOLUS OVER 2 HOURS STAT IV* 05/12/17 10:36 05/12/17 10:42 DC 05/12/17 11:30 Cefepime HCl (Maxipime 2gm/50 ml (Pmx)) 50 ml @ 100 mls/hr ONCE STAT IVPB 05/12/17 10:36 05/12/17 11:05 DC 05/12/17 11:30 Procedures/MDM EKG read by me: Rate/Rhythm: Regular rate and rhythm at a normal rate Intervals: Normal Impression: No evidence of ischemia or arrhythmia Chest x-ray negative per radiology. Admit MDM: Patient's infectious symptoms have not stabilized and the patient is at risk of rapid decompensation. The patient will be admitted for careful hydration, antibiotic therapy, and infectious source control. Severe Sepsis criteria: Infectious source: Cystitis End organ damage indicated by: Lactate greater than 2 Sepsis Management: Time of recognition of sepsis: 1035 Within 3 hours of recognition: Blood cultures x 2 before broad-spectrum antibiotics: Yes 30 ml/kg NS bolus Completed Initial lactate 2.2 Repeat lactate 1.3 Time of recognition of septic shock: No septic shock Septic Shock Assessment: Any lactic acid > 4.0 No Persistent hypotension (SBP < 90 or 40 mmHg drop, MAP < 65) despite 30 mL/kg IV fluid bolus No Volume Re-assessment for Septic Shock (post 30 ml/kg bolus): No acute distress Persistent Hypotension Treatment: Comfort care No Central line Not Required Vasopressor started Not required I considered further perfusion assessment with CVP measurement, SCVO2, bedside ultrasound volume assessment, passive leg raise, trial of further fluid bolus. And proceeded with 30 ml/kg fluid bolus of NSS, broad spectrum antibiotics, and admission. Accepting Care Team Current data and ongoing care discussed. Admitting Physician: Dr. Cartagena Prorate Clerk(s): None Outstanding Data: Culture results Critical Care: Critical care time 35 minutes excluding all billable procedures Emergent fluid management while maintaining close respiratory support. Provision of immediate and broad-spectrum antibiotic therapy. Simultaneous assessment for possible sources in order to direct targeted therapy. Consideration for invasive and chemical support to prevent cardiopulmonary collapse. Departure Diagnosis: Primary Impression: Severe sepsis Additional Impression: Cystitis Condition: Serious GRACE JENSEN MD May 12, 2017 14:00
[2017-05-12] MEDS ORDERED: hydrALAzine 20 MG INJ IV ONE (14:30)
[2017-05-12] MEDS ORDERED: VANCOMYCIN IV PER PHARMACY XX SCH (15:30)
[2017-05-12] MEDS ORDERED: DOCUSATE SODIUM 100 MG CAP PO PRN (15:30)
[2017-05-12 15:32] VITALS: BP 171/90; PULSE 63
--- NOTE | 2017-05-12 15:53 | CONS ---
Date/Time of Note Date/Time of Note DATE: 05/12/17 TIME: 15:53 Assessment/Plan Assessment/Plan Additional Assessment/Plan 1. acute on chronic renal failure due to ATN from sepsis and prerenal azotemia 2. sepsis due to UTI 3. 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 HTN 5. HL 6. H/o CVA with residual left weakness Plan : IV abx cefepime and Vancomycin, ID consulted, renally dose all abx will give NS at 70cc/hr x 2 liter then stop pt previously had a fulll CKD work up and his Renal US on last admission in 2016 showed Bilateral cortical thinning and increased echogenicity compatible with chronic medical renal disease. No evidence of hydronephrosis, nephrolithiasis or obstructive uropathy. continue Suprapubic Catheter care, will follow up on blood cx and Urine cx Expecting Cr to improve with Rx of Sepsis and IVF hydration will follow up Thanks for consultation , we will follow up Consultation Date/Type/Reason Admit Date/Time May 12, 2017 at 10:53 Date of Consultation: May 12, 2017 Type of Consultation: NEPHROLOGY Reason for Consultation Acute on chronic renal failure, Suprapubic catheter Referring Provider: VANESSA LOPES MD Hx of Present Illness 66-year-old male with dementia, diabetes, previous stroke, and previous kidney infection who presents with confusion. Please note the history and physical exam is limited secondary to the patient's mental status. The patient "has not been himself" for the past 2 days per the daughter. he has previosu h/o Pyelonephritis, h/o urinary retention requiring suprapubic catheter- admitted to med/surge floor. noted to have BUN/Cr 41/2.72- renal has been consulted for acute vs acute on chronic renal failure. Constitutional: diaphoresis, no complaints Eyes: no complaints ENT: no complaints Respiratory: no complaints Gastrointestinal: no complaints Genitourinary: no complaints Musculoskeletal: no complaints Past Medical History Medical History: high cholesterol, hypertension, other (H/o CVA with residual left weakness ) Past Surgical History Past Surgical Hx: no surgical history (Shunt placement, suprapubic catheter placement ) Family History Significant Family History: no pertinent family hx Social History Alcohol Use: none Smoking Status: Never smoker Drug Use: none Exam/Review of Systems Vital Signs Vitals Vital Signs Date Time Temp Pulse Resp B/P Pulse Ox O2 Delivery O2 Flow Rate FiO2 05/12/17 15:32 63 171/90 05/12/17 13:45 97.8 18 97 Room Air Exam Constitutional: alert, non-verbal, other (follows commands ) Psych: no complaints Head: normocephalic Eyes: nl conjunctiva ENMT: nl external ears & nose Neck: supple Respiratory: clear to auscultation, diminished breath sounds, normal air movement Cardiovascular: regular rate and rhythm Gastrointestinal: non-tender, soft Neurological: other (awake, alert, follows simple commands ) Results Result Diagram: 05/12/17 1035 05/12/17 1035 Results 24 hrs Laboratory Tests Test 05/12/17 10:35 05/12/17 10:45 05/12/17 13:10 05/12/17 13:53 White Blood Count 6.3 Red Blood Count 4.95 Hemoglobin 15.4 Hematocrit 45.7 Mean Corpuscular Volume 92.3 Mean Corpuscular Hemoglobin 31.1 Mean Corpuscular Hemoglobin Concent 33.7 Red Cell Distribution Width 13.3 Platelet Count 176 Mean Platelet Volume 11.6 H Neutrophils % 55.6 Lymphocytes % 30.5 Monocytes % 10.3 Eosinophils % 1.4 Basophils % 1.1 Nucleated Red Blood Cells % 0.0 Neutrophils # 3.5 Lymphocytes # 1.9 Monocytes # 0.7 Eosinophils # 0.1 Basophils # 0.1 Nucleated Red Blood Cells # 0.0 Prothrombin Time 12.0 L Prothrombin Time Ratio 0.9 INR International Normalized Ratio 0.89 Activated Partial Thromboplast Time 28.2 Sodium Level 144 Potassium Level 4.1 Chloride Level 109 Carbon Dioxide Level 24 Anion Gap 15 Blood Urea Nitrogen 41 H Creatinine 2.72 H Glucose Level 120 Lactic Acid Level 2.2 *H 1.3 Calcium Level 9.3 Total Bilirubin 0.1 L Direct Bilirubin 0.00 Indirect Bilirubin 0.1 Aspartate Amino Transf (AST/SGOT) 16 Alanine Aminotransferase (ALT/SGPT) 20 Alkaline Phosphatase 85 Troponin I < 0.012 Total Protein 8.0 Albumin 4.2 Globulin 3.80 H Albumin/Globulin Ratio 1.10 Urine Color YELLOW Urine Clarity CLOUDY A Urine pH 5.0 Urine Specific [place] 1.012 Urine Ketones NEGATIVE Urine Nitrite NEGATIVE Urine Bilirubin NEGATIVE Urine Urobilinogen NEGATIVE Urine Leukocyte Esterase 3+ H Urine Microscopic RBC 25 H Urine Microscopic WBC > 182 H Urine Bacteria MODERATE Urine Hemoglobin 1+ H Urine Glucose NEGATIVE Urine Total Protein 2+ H Bedside Glucose 98 Medications Medications Current Medications Quetiapine Fumarate (Seroquel) 100 mg BID PO ; Start 05/12/17 at 21:00 Ascorbic Acid (Vitamin C) 500 mg DAILY PO ; Start 05/13/17 at 09:00 Amlodipine Besylate (Norvasc) 5 mg DAILY PO ; Start 05/13/17 at 09:00; Status UNV Atorvastatin Calcium (Lipitor) 10 mg QHS PO ; Start 05/12/17 at 21:00; Status UNV Divalproex Sodium (Depakote Er) 500 mg BID PO ; Start 05/12/17 at 21:00; Status UNV Donepezil HCl (Aricept) 10 mg DAILY PO ; Start 05/13/17 at 09:00 Metoprolol Tartrate (Lopressor) 100 mg BID GTB ; Start 05/12/17 at 21:00; Status UNV Hydralazine HCl 10 mg 10 mg Q4H PRN IV SBP>170; Start 05/12/17 at 15:30 Cefepime HCl (Maxipime 1gm/50 ml (Pmx)) 50 ml @ 100 mls/hr Q12 IVPB ; Start at 21:00; Status UNV Ondansetron HCl (Zofran Inj) 4 mg Q6H PRN IV NAUSEA AND/OR VOMITING; Start 05/12/17 at 15:30 Acetaminophen (Tylenol Tab) 650 mg Q6H PRN PO PAIN LEVEL 1-3 OR FEVER; Start 05/12/17 at 15:30; Status UNV Docusate Sodium (Colace) 100 mg Q12H PRN PO CONSTIPATION; Start 05/12/17 at 15: 30; Status UNV Enoxaparin Sodium (Lovenox) 30 mg DAILY SC ; Start 05/13/17 at 09:00 Famotidine (Pepcid) 20 mg Q24H PO ; Start 05/12/17 at 21:00 NI WATSON MD May 12, 2017 15:53
--- NOTE | 2017-05-12 17:32 | HP ---
DATE OF ADMISSION: 05/12/2017 CHIEF COMPLAINT: Confusion and difficulty walking. HISTORY OF PRESENT ILLNESS: The patient is a 66-year-old gentleman, who is known to me from previous admission. The patient has history of intracranial hemorrhage status post-ACQUIS[employer] shunt placement, with lower extremities weakness. However, he was able to ambulate using a walker at home. The patient has history of diabetes mellitus, hypertension, chronic kidney disease, gout and hyperlipidemia. Patient with urinary retention and suprapubic catheter that was placed per last admission by Dr. Fay. Status post-history of G-tube placement. Status post- removal of G-tube. He was able to tolerate a regular diet at home. History of hypertension. The patient was in his usual health until a couple of days ago when patient developed generalized weakness and confusion. The patient was brought to the Emergency room by his daughter. The patient was diagnosed with acute cystitis and sepsis. Also, he was started on broad- spectrum antibiotics, and patient is admitted for further evaluation and management to medical-surgical floor. PAST MEDICAL/SURGICAL HISTORY: PER HPI. SOCIAL HISTORY: The patient lives at home with his daughter. 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 Patient denies any tobacco use. Denies any alcohol use. Denies any illicit drug use. ALLERGIES: PATIENT HAS NO KNOWN DRUG ALLERGIES. MEDICATIONS: Pro air. Cranberry fruit concentrate, tamsulosin, metoprolol, ferrous sulfate, atorvastatin, Norvasc, Tylenol, . Donepezil, Depakote. REVIEW OF SYSTEMS: A 12 point review of system is negative unless what is mentioned in HPI. PHYSICAL EXAMINATION: GENERAL: Well-developed, well-nourished male, currently is awake, alert, and follows immediate commands. VITAL SIGNS: Temperature is 97.8, pulse is 57, blood pressure 188/96, respiratory rate 18. Oxygen saturation 97 percent on room air. HEENT: Head is atraumatic, normocephalic. Pupils equal, round, reactive to light and accommodation. Oral mucosa is pink and moist. NECK: Supple. No cervical lymphadenopathy. No thyromegaly. CHEST: Lungs clear bilaterally. There is no rhonchi, wheezes, rales noted. CARDIOVASCULAR: Normal S1, S2. No murmurs, gallops, clicks, rubs noted. ABDOMEN: Round, soft, nondistended, nontender. Patient has a suprapubic catheter with intact stoma. EXTREMITIES: No edema, clubbing, cyanosis. Pulses equal bilaterally 2+. SKIN: No rash. No petechiae noted. NEUROLOGICAL: Patient is alert and oriented to name and situation, otherwise confused. LABORATORY DATA: On admission, CBC white blood cells 6.3, hemoglobin 15.4, hematocrit 45.7, platelets 176, 000. Chemistry: Sodium is 144, potassium 4.1, chloride 109, carbon dioxide 24. Anion gap 15. BUN is 41, creatinine 2.72 glucose 120. Lactic acid is 2.2. Troponin less than 0.012. ASSESSMENT AND PLAN: 1. Acute cystitis. Continue broad-spectrum antibiotics. Follow up on urine culture. 2. Line sepsis secondary to number 1. Will obtain blood cultures if not done in the emergency room. Continue antibiotics is asked to see patient in Infectious Disease consultation. 3. Chronic kidney disease stage 3-4. Continue BUN and creatinine. 4. Diabetes mellitus. 5. Hypertension. 6. Hyperlipidemia. 7. Chronic urinary retention with suprapubic catheter. 8. Gout. 9. History of an intracranial hemorrhage with history of ventriculoperitoneal shunt. Will resume patient's home medication. Start the patient on 1800 ADA, 2 g sodium, low-fat diet. 10. Dr. Ramsey will be following patient in Nephrology consultation. 11. Further recommendations based on clinical course. 12. Plan of care discussed with Dr. Cartagena. DICTATED BY: Aurora Marks NP. Dictated By: Aurora Marks NP /frank/jeremy /Document#: [id number]
[2017-05-12] MEDS: SOD CHLORIDE 0.9% 1,000 ML IV SCH (18:31)
[2017-05-12 19:34] VITALS: BP 189/99; RESP 20
[2017-05-12] MEDS: hydrALAzine 20 MG INJ IV PRN (19:38)
[2017-05-12] MEDS ORDERED: INFLUENZA VIRUS VACCINE 0.5 ML (DISPENSING) IM* ONE (20:00)
[2017-05-12] MEDS ORDERED: FAMOTIDINE 20 MG TAB PO SCH (21:00)
[2017-05-12] MEDS ORDERED: CEFEPIME 1GM/50 ML (PMX) 50 ML IVPB SCH (21:00)
[2017-05-12 21:40] VITALS: BP 156/81; PULSE 76
[2017-05-12] MEDS: FAMOTIDINE 20 MG TAB PO SCH (21:43)
[2017-05-12] MEDS: DIVALPROEX (ER) 500 MG TAB PO SCH (21:43)
[2017-05-12] MEDS: QUETIAPINE 100 MG TAB PO SCH (21:43)
[2017-05-12] MEDS: ATORVASTATIN 10 MG TAB PO SCH (21:43)
[2017-05-12] MEDS: METOPROLOL 100 MG TAB GTB SCH (21:44)
[2017-05-13] VITALS (7 sets, daily range): BP systolic 125–195; BP diastolic 79–101; PULSE 69–83; RESP 16–20
--- NOTE | 2017-05-13 05:50 | CONS ---
DATE OF ADMISSION: 05/12/2017 DATE OF CONSULTATION: 05/12/2017 REASON FOR CONSULTATION: Antibiotic management. HISTORY OF PRESENT ILLNESS: George Field is a 66-year-old male with numerous problems, who comes in with body aches and confusion. His problems include: 1. Senile dementia. 2. Adult-onset diabetes mellitus. 3. Previous stroke. 4. Previous kidney infection. Acutely, the patient comes in confused. His daughter notes that for the last 2 days he has not been himself. He has had fevers, history of kidney infection. He feels weak, cannot walk and cannot do the activities of daily living. He has been hallucinating and has been aggressive towards his family. On admission, other problems include: 5. Adult-onset diabetes mellitus. 6. Dementia. 7. Previous stroke. 8. Previous kidney infection. 9. Gout. 10. Hyperlipidemia. 11. Status post cholecystectomy. 12. History of left knee operation. 13. History of shunt placement. On admission, his white count was 6.3, hemoglobin and hematocrit of 15.4 and 45.7, platelet count 176,000. BUN and creatinine 41/2.72, glucose 120. Chest x-ray shows no acute disease. The patient was seen in consultation by Dr. Marc Ramsey for chronic renal failure. The patient has a suprapubic catheter. PHYSICAL EXAMINATION: GENERAL APPEARANCE: This is a well-developed, well-nourished male, who is awake, confused, in no acute distress. VITAL SIGNS: Stable. He is afebrile. SKIN: Without generalized rash. HEENT: Within normal limits. NECK: Supple. Lymph nodes nonpalpable. CHEST: Decreased breath sounds at the bases. HEART: Without murmur or gallop. ABDOMEN: Soft, nontender, without organo-splenomegaly or masses. EXTREMITIES: Without cyanosis, clubbing, or edema. RECTAL/GENITAL: Deferred. NEUROLOGICAL: Patient is confused but moves all extremities. IMPRESSION AND PLAN: The patient has had fever and chills. He presents now with a white count of 6.3, but his leukocyte esterase in the urine is 3+ and his urine WBC is 182. The patient was started on cefepime and vancomycin until the results of his cultures are available. We will continue him on current therapy. I will dictate my findings to the hospitalist and to Dr. Ramsey. Dictated By: Frank Cha MD JD/frank/suleiman /Document#: [id number]
[2017-05-13 06:13] LABS: BASOPHIL # 0.1 10^3/ul (0.0-0.1); BASOPHILS % 0.9 % (0.0-2.0); EOSINOPHILS # 0.1 10^3/ul (0.0-0.5); EOSINOPHILS % 2.3 % (0.0-7.0); HEMATOCRIT 42.8 % (42.0-52.0); HEMOGLOBIN 14.3 g/dl (14.0-18.0); LYMPHOCYTES # 1.9 10^3/ul (0.8-2.9); LYMPHOCYTES % 32.9 % (15.0-51.0); MEAN CORPUSCULAR HGB CONC 33.4 g/dl (32.0-37.0); MEAN CORPUSCULAR VOLUME 92.8 fl (82.0-101.0); MONOCYTE # 0.7 10^3/ul (0.3-0.9); MONOCYTES % 13.1 % (0.0-11.0); NEUTROPHIL # 2.8 10^3/ul (1.6-7.5); NEUTROPHILS % 50.1 % (39.0-77.0); PLATELET COUNT 188 10^3/UL (140-415); RED BLOOD COUNT 4.61 10^6/ul (4.70-6.10); RED CELL DISTRIBUTION WIDTH 13.9 % (11.5-14.5); WHITE BLOOD COUNT 5.7 10^3/ul (4.8-10.8)
[2017-05-13 06:37] LABS: CALCIUM 9.2 mg/dl (8.4-10.2); CREATININE 2.22 mg/dl (0.61-1.24); POTASSIUM 4.6 mmol/L (3.5-5.1)
[2017-05-13] MEDS: SOD CHLORIDE 0.9% 1,000 ML IV SCH (06:40)
[2017-05-13] MEDS: hydrALAzine 20 MG INJ IV PRN (07:56)
[2017-05-13] MEDS: DIVALPROEX (ER) 500 MG TAB PO SCH ×2 (08:36→21:05)
[2017-05-13] MEDS: ASCORBIC ACID 500 MG TAB PO SCH (08:36)
[2017-05-13] MEDS: QUETIAPINE 100 MG TAB PO SCH ×2 (08:36→21:05)
[2017-05-13] MEDS: DONEPEZIL 10 MG TAB PO SCH (08:36)
[2017-05-13] MEDS: METOPROLOL 100 MG TAB GTB SCH ×2 (08:39→21:06)
[2017-05-13] MEDS: AMLODIPINE 5 MG TAB PO SCH (08:39)
[2017-05-13] MEDS: ENOXAPARIN 30 MG/0.3 ML SYG SC SCH (09:39)
[2017-05-13] MEDS ORDERED: CEFEPIME 2GM/50 ML IVPB SCH (10:00)
[2017-05-13] MEDS ORDERED: VANCOMYCIN 1.25 GM in SOD CHLORIDE 0.9% 250 ML IVPB SCH (12:00)
--- NOTE | 2017-05-13 15:05 | CONS ---
Date/Time of Note Date/Time of Note DATE: 05/13/17 TIME: 15:02 Assessment/Plan Assessment/Plan Chief Complaint/Hosp Course 66-year-old male with dementia, diabetes, previous stroke, and previous kidney infection who presents with confusion. Please note the history and physical exam is limited secondary to the patient's mental status. The patient "has not been himself" for the past 2 days per the daughter. he has previosu h/o Pyelonephritis, h/o urinary retention requiring suprapubic catheter- admitted to med/surge floor. noted to have BUN/Cr 41/2.72- renal has been consulted for acute vs acute on chronic renal failure. Problems: Additional Assessment/Plan 1. acute on chronic renal failure due to ATN from sepsis and prerenal azotemia- Improving with IVF hydration 2. sepsis due to UTI 3. 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 HTN 5. HL 6. H/o CVA with residual left weakness Plan : IV abx cefepime and Vancomycin, ID consulted, renally dose all abx continue NS at 70cc/hr x 2 liter then stop- Cr improved from 2.7 to 2.2 today pt previously had a fulll CKD work up and his Renal US on last admission in 2016 showed Bilateral cortical thinning and increased echogenicity compatible with chronic medical renal disease. No evidence of hydronephrosis, nephrolithiasis or obstructive uropathy. continue Suprapubic Catheter care, Blood cx negative to date, Urine cx growing gram negative rods, enterococcus Expecting Cr to improve with Rx of Sepsis and IVF hydration will follow up Consultation Date/Type/Reason Admit Date/Time May 12, 2017 at 10:53 Initial Consult Date 05/12/17 Type of Consultation: NEPHROLOGY Referring Provider: VANESSA LOPES MD 24 HR Interval Summary Free Text/Dictation Cr improved from 2.7 to 2.2 with IVF hydration Exam/Review of Systems Vital Signs Vitals Vital Signs Date Time Temp Pulse Resp B/P Pulse Ox O2 Delivery O2 Flow Rate FiO2 05/13/17 13:59 98.1 70 16 166/92 97 05/12/17 13:45 Room Air Intake and Output 05/12/17 05/12/17 05/13/17 15:00 23:00 07:00 Intake Total 370 ml 1170 ml Output Total 1700 ml 1000 ml Balance -1330 ml 170 ml Exam Constitutional: alert, awake, family at bedside Respiratory: clear to auscultation, diminished breath sounds, normal air movement Cardiovascular: regular rate and rhythm Gastrointestinal: non-tender, soft Neurological: other (awake, alert, follows simple commands ) Results Result Diagram: 05/13/17 0533 05/13/17 0532 Results 24 hrs Laboratory Tests Test 05/12/17 16:20 05/12/17 17:44 05/13/17 05:32 05/13/17 05:33 Lactic Acid Level 1.5 Bedside Glucose 86 Sodium Level 144 Potassium Level 4.6 Chloride Level 113 H Carbon Dioxide Level 25 Anion Gap 11 Blood Urea Nitrogen 33 H Creatinine 2.22 H Glucose Level 95 Calcium Level 9.2 Valproic Acid (Depakene) Level 32 L White Blood Count 5.7 Red Blood Count 4.61 L Hemoglobin 14.3 Hematocrit 42.8 Mean Corpuscular Volume 92.8 Mean Corpuscular Hemoglobin 31.0 Mean Corpuscular Hemoglobin Concent 33.4 Red Cell Distribution Width 13.9 Platelet Count 188 Mean Platelet Volume 11.0 H Neutrophils % 50.1 Lymphocytes % 32.9 Monocytes % 13.1 H Eosinophils % 2.3 Basophils % 0.9 Nucleated Red Blood Cells % 0.0 Neutrophils # 2.8 Lymphocytes # 1.9 Monocytes # 0.7 Eosinophils # 0.1 Basophils # 0.1 Nucleated Red Blood Cells # 0.0 Medications Medications Current Medications Quetiapine Fumarate (Seroquel) 100 mg BID PO Last administered on 05/13/17 08: 36; Admin Dose 100 MG; Start 05/12/17 at 21:00 Ascorbic Acid (Vitamin C) 500 mg DAILY PO Last administered on 05/13/17 08:36 ; Admin Dose 500 MG; Start 05/13/17 at 09:00 Amlodipine Besylate (Norvasc) 5 mg DAILY PO Last administered on 05/13/17 08: 39; Admin Dose 5 MG; Start 05/13/17 at 09:00 Atorvastatin Calcium (Lipitor) 10 mg QHS PO Last administered on 05/12/17 21: 43; Admin Dose 10 MG; Start 05/12/17 at 21:00 Divalproex Sodium (Depakote Er) 500 mg BID PO Last administered on 05/13/17 08 :36; Admin Dose 500 MG; Start 05/12/17 at 21:00 Donepezil HCl (Aricept) 10 mg DAILY PO Last administered on 05/13/17 08:36; Admin Dose 10 MG; Start 05/13/17 at 09:00 Metoprolol Tartrate (Lopressor) 100 mg BID GTB Last administered on 05/13/17 08:39; Admin Dose 100 MG; Start 05/12/17 at 21:00 Hydralazine HCl (Apresoline) 10 mg Q4H PRN IV SBP>170 Last administered on 05/13 07:56; Admin Dose 10 MG; Start 05/12/17 at 15:30 Ondansetron HCl (Zofran Inj) 4 mg Q6H PRN IV NAUSEA AND/OR VOMITING; Start 05/12/17 at 15:30 Acetaminophen (Tylenol Tab) 650 mg Q6H PRN PO PAIN LEVEL 1-3 OR FEVER; Start 05/12/17 at 15:30 Docusate Sodium (Colace) 100 mg Q12H PRN PO CONSTIPATION; Start 05/12/17 at 15: 30 Enoxaparin Sodium (Lovenox) 30 mg DAILY SC Last administered on 05/13/17 09:39 ; Admin Dose 30 MG; Start 05/13/17 at 09:00 Famotidine 20 mg 20 mg Q24H PO Last administered on 05/12/17 21:43; Admin Dose 20 MG; Start 05/12/17 at 21:00 Sodium Chloride 1,000 ml @ 70 mls/hr [id number] IV Last administered on 06:40; Admin Dose 70 MLS/HR; Start 05/12/17 at 18:00; Stop 05/13/17 at 22: 34 Piperacillin Sod/ Tazobactam Sod (Zosyn 2.25gm/ 50ml (Pmx)) 50 ml @ 200 mls/hr Q6 IVPB ; Start 05/13/17 at 14:45 NI WATSON MD May 13, 2017 15:05
--- NOTE | 2017-05-13 15:45 | PN ---
Date/Time of Note Date/Time of Note DATE: 05/13/17 TIME: 15:39 Assessment/Plan VTE Prophylaxis VTE Prophylaxis Intervention: SCD's Lines/Catheters [facility] [place] [facility] Urinary Cath still in place: Yes (suprapubic cath ) Reason Cath still needed: urinary retention Assessment/Plan Chief Complaint/Hosp Course Patient resting comfortably, episode of hypertension earlier today currently blood pressure is better controlled. Urine culture with gram-negative rods and enterococcus species, continue Zosyn. Problems: Assessment/Plan - Acute cystitis. Continue broad-spectrum antibiotics. Follow up on urine culture. - Sepsis secondary to number 1. is following in Infectious Disease consultation. 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 Continue BUN and creatinine. Dr. Ramsey is following patient in Nephrology consultation. - Diabetes mellitus. - Hypertension. - Hyperlipidemia. - Chronic urinary retention with suprapubic catheter. - Gout. - History of an intracranial hemorrhage with history of ventriculoperitoneal shunt. Further recommendations based on clinical course. Plan of care discussed with Dr. Cartagena. Exam/Review of Systems Vital Signs Vitals Vital Signs Date Time Temp Pulse Resp B/P Pulse Ox O2 Delivery O2 Flow Rate FiO2 05/13/17 13:59 98.1 70 16 166/92 97 05/12/17 13:45 Room Air Intake and Output 05/12/17 05/12/17 05/13/17 15:00 23:00 07:00 Intake Total 370 ml 1170 ml Output Total 1700 ml 1000 ml Balance -1330 ml 170 ml Exam Constitutional: alert, oriented Neck: supple Respiratory: normal air movement Cardiovascular: nl pulses Gastrointestinal: non-tender, soft Genitourinary - Male: other (Suprapubic catheter) Extremities: normal pulses Results Result Diagram: 05/13/17 0533 05/13/17 0532 Results 24 hrs Laboratory Tests Test 05/12/17 16:20 05/12/17 17:44 05/13/17 05:32 05/13/17 05:33 Lactic Acid Level 1.5 Bedside Glucose 86 Sodium Level 144 Potassium Level 4.6 Chloride Level 113 H Carbon Dioxide Level 25 Anion Gap 11 Blood Urea Nitrogen 33 H Creatinine 2.22 H Glucose Level 95 Calcium Level 9.2 Valproic Acid (Depakene) Level 32 L White Blood Count 5.7 Red Blood Count 4.61 L Hemoglobin 14.3 Hematocrit 42.8 Mean Corpuscular Volume 92.8 Mean Corpuscular Hemoglobin 31.0 Mean Corpuscular Hemoglobin Concent 33.4 Red Cell Distribution Width 13.9 Platelet Count 188 Mean Platelet Volume 11.0 H Neutrophils % 50.1 Lymphocytes % 32.9 Monocytes % 13.1 H Eosinophils % 2.3 Basophils % 0.9 Nucleated Red Blood Cells % 0.0 Neutrophils # 2.8 Lymphocytes # 1.9 Monocytes # 0.7 Eosinophils # 0.1 Basophils # 0.1 Nucleated Red Blood Cells # 0.0 Medications Medications Current Medications Quetiapine Fumarate (Seroquel) 100 mg BID PO Last administered on 05/13/17 08: 36; Admin Dose 100 MG; Start 05/12/17 at 21:00 Ascorbic Acid (Vitamin C) 500 mg DAILY PO Last administered on 05/13/17 08:36 ; Admin Dose 500 MG; Start 05/13/17 at 09:00 Amlodipine Besylate (Norvasc) 5 mg DAILY PO Last administered on 05/13/17 08: 39; Admin Dose 5 MG; Start 05/13/17 at 09:00 Atorvastatin Calcium (Lipitor) 10 mg QHS PO Last administered on 05/12/17 21: 43; Admin Dose 10 MG; Start 05/12/17 at 21:00 Divalproex Sodium (Depakote Er) 500 mg BID PO Last administered on 05/13/17 08 :36; Admin Dose 500 MG; Start 05/12/17 at 21:00 Donepezil HCl (Aricept) 10 mg DAILY PO Last administered on 05/13/17 08:36; Admin Dose 10 MG; Start 05/13/17 at 09:00 Metoprolol Tartrate (Lopressor) 100 mg BID GTB Last administered on 05/13/17 08:39; Admin Dose 100 MG; Start 05/12/17 at 21:00 Hydralazine HCl (Apresoline) 10 mg Q4H PRN IV SBP>170 Last administered on 05/13 07:56; Admin Dose 10 MG; Start 05/12/17 at 15:30 Ondansetron HCl (Zofran Inj) 4 mg Q6H PRN IV NAUSEA AND/OR VOMITING; Start 10/ 2/17 at 15:30 Acetaminophen (Tylenol Tab) 650 mg Q6H PRN PO PAIN LEVEL 1-3 OR FEVER; Start 05/12/17 at 15:30 Docusate Sodium (Colace) 100 mg Q12H PRN PO CONSTIPATION; Start 05/12/17 at 15: 30 Enoxaparin Sodium (Lovenox) 30 mg DAILY SC Last administered on 05/13/17 09:39 ; Admin Dose 30 MG; Start 05/13/17 at 09:00 Famotidine 20 mg 20 mg Q24H PO Last administered on 05/12/17 21:43; Admin Dose 20 MG; Start 05/12/17 at 21:00 Sodium Chloride 1,000 ml @ 70 mls/hr [id number] IV Last administered on 06:40; Admin Dose 70 MLS/HR; Start 05/12/17 at 18:00; Stop 05/13/17 at 22: 34 Piperacillin Sod/ Tazobactam Sod (Zosyn 2.25gm/ 50ml (Pmx)) 50 ml @ 200 mls/hr Q6 IVPB ; Start 05/13/17 at 14:45 MARIA ANTONIA GERMAN May 13, 2017 15:45
[2017-05-13] MEDS: PIPER-TAZO 2.25 GM (PMX) 50 ML IVPB SCH ×3 (15:46→21:05)
--- NOTE | 2017-05-13 16:52 | PN ---
DATE: 05/13/2017 SUBJECTIVE DATA: No acute changes overnight. The patient is alert, looks comfortable. Denies pain, no fevers. LABORATORY AND DIAGNOSTIC DATA: WBC today 5.7, no shift, no bands. BUN 33, creatinine 2.22. MICROBIOLOGY: Urine culture growing Enterococcus and gram- negative rods. Blood cultures remain negative. DIAGNOSTICS: Chest x-ray on admission revealed no acute disease. ANTIMICROBIALS: The patient is on vancomycin and Cefepime. PHYSICAL EXAMINATION: GENERAL: Well nourished, well developed, elderly man who is in no distress. HEENT: Head atraumatic, normocephalic. Sclerae anicteric. Buccal mucosa dry. NECK: Supple. CHEST: Rise symmetrical. Breath sounds diminished at the bases. HEART: S1, S2. ABDOMEN: Soft, bowel sounds present. EXTREMITIES: Without cyanosis. ASSESSMENT: 1. Systemic inflammatory response syndrome. 2. Polymicrobial urinary tract infection. 3. Acute on chronic kidney failure due to acute tubular necrosis. 4. Diabetes. 5. Hypertension. 6. History of cerebrovascular accident. PLAN: The patient remains stable. Blood cultures have been negative. Chest x-ray is negative. We are going to change antibiotics to Zosyn that will cover both Enterococcus and gram- negative rods and await for final cultures. Follow nephrology recommendations. Monitor urine output and postvoid residuals. Dictated By: Wilda Boogie NP /frank/jeremy /Document#: [id number]
[2017-05-13] MEDS: FAMOTIDINE 20 MG TAB PO SCH (21:05)
[2017-05-13] MEDS: ATORVASTATIN 10 MG TAB PO SCH (21:05)
[2017-05-14] MEDS: PIPER-TAZO 2.25 GM (PMX) 50 ML IVPB SCH ×3 (02:01→11:18)
[2017-05-14 02:19] VITALS: BP 159/97; RESP 20
[2017-05-14 07:24] LABS: BASOPHIL # 0.1 10^3/ul (0.0-0.1); EOSINOPHILS # 0.2 10^3/ul (0.0-0.5); EOSINOPHILS % 2.1 % (0.0-7.0); HEMATOCRIT 47.8 % (42.0-52.0); HEMOGLOBIN 15.2 g/dl (14.0-18.0); LYMPHOCYTES # 2.7 10^3/ul (0.8-2.9); MEAN CORPUSCULAR HEMOGLOBIN 30.2 pg (29.0-33.0); MEAN CORPUSCULAR HGB CONC 31.8 g/dl (32.0-37.0); MEAN PLATELET VOLUME 11.3 fl (7.4-10.4); MONOCYTE # 0.8 10^3/ul (0.3-0.9); MONOCYTES % 9.8 % (0.0-11.0); NEUTROPHILS % 51.6 % (39.0-77.0); PLATELET COUNT 210 10^3/UL (140-415); RED BLOOD COUNT 5.03 10^6/ul (4.70-6.10); RED CELL DISTRIBUTION WIDTH 14.2 % (11.5-14.5); WHITE BLOOD COUNT 7.8 10^3/ul (4.8-10.8)
[2017-05-14 07:53] VITALS: BP 174/104; RESP 18
[2017-05-14 08:01] LABS: CALCIUM 9.3 mg/dl (8.4-10.2); CREATININE 2.53 mg/dl (0.61-1.24); POTASSIUM 3.7 mmol/L (3.5-5.1)
[2017-05-14] MEDS: ASCORBIC ACID 500 MG TAB PO SCH (08:46)
[2017-05-14] MEDS: DIVALPROEX (ER) 500 MG TAB PO SCH ×2 (08:46→20:58)
[2017-05-14] MEDS: DONEPEZIL 10 MG TAB PO SCH (08:46)
[2017-05-14] MEDS: QUETIAPINE 100 MG TAB PO SCH ×2 (08:46→20:57)
[2017-05-14] MEDS: METOPROLOL 100 MG TAB GTB SCH ×2 (08:47→20:58)
[2017-05-14] MEDS: AMLODIPINE 5 MG TAB PO SCH (08:47)
[2017-05-14] MEDS: ENOXAPARIN 30 MG/0.3 ML SYG SC SCH (09:04)
--- NOTE | 2017-05-14 09:10 | CONS ---
Date/Time of Note Date/Time of Note DATE: 05/14/17 TIME: 09:00 Assessment/Plan Assessment/Plan Additional Assessment/Plan 1. acute on chronic renal failure due to ATN from sepsis and prerenal azotemia- Improving with IVF hydration 2. sepsis due to UTI 3. 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 HTN 5. HL 6. H/o CVA with residual left weakness Plan : IV abx cefepime and Vancomycin, ID consulted, renally dose all abx s/p NS 2 liter given- Cr improved from 2.7 to 2.2 yesterday-then again bumped to 2.5 today -will monitor it, check vancomycin level.d/w pharmacy pt previously had a fulll CKD work up and his Renal US on last admission in 2016 showed Bilateral cortical thinning and increased echogenicity compatible with chronic medical renal disease. No evidence of hydronephrosis, nephrolithiasis or obstructive uropathy. continue Suprapubic Catheter care, Blood cx negative to date, Urine cx growing gram negative rods, enterococcus will follow up Consultation Date/Type/Reason Admit Date/Time May 12, 2017 at 10:53 Initial Consult Date 05/12/17 Type of Consultation: NEPHROLOGY Referring Provider: VANESSA LOPES MD Exam/Review of Systems Vital Signs Vitals Vital Signs Date Time Temp Pulse Resp B/P Pulse Ox O2 Delivery O2 Flow Rate FiO2 05/14/17 07:53 98.1 78 18 174/104 96 05/12/17 13:45 Room Air Intake and Output 05/13/17 05/13/17 05/14/17 15:00 23:00 07:00 Intake Total 50 ml 860 ml 700 ml Output Total 1000 ml 900 ml Balance 50 ml -140 ml -200 ml Exam Constitutional: alert, awake Respiratory: clear to auscultation, diminished breath sounds, normal air movement Cardiovascular: regular rate and rhythm Gastrointestinal: non-tender, soft Neurological: other (awake, alert, follows simple commands ) Results Result Diagram: 05/14/17 0605 05/14/17 0605 Results 24 hrs Laboratory Tests Test 05/14/17 06:05 White Blood Count 7.8 # Red Blood Count 5.03 Hemoglobin 15.2 Hematocrit 47.8 Mean Corpuscular Volume 95.0 Mean Corpuscular Hemoglobin 30.2 Mean Corpuscular Hemoglobin Concent 31.8 L Red Cell Distribution Width 14.2 Platelet Count 210 Mean Platelet Volume 11.3 H Neutrophils % 51.6 Lymphocytes % 35.0 Monocytes % 9.8 Eosinophils % 2.1 Basophils % 1.0 Nucleated Red Blood Cells % 0.0 Neutrophils # 4.0 Lymphocytes # 2.7 Monocytes # 0.8 Eosinophils # 0.2 Basophils # 0.1 Nucleated Red Blood Cells # 0.0 Sodium Level 147 H Potassium Level 3.7 Chloride Level 113 H Carbon Dioxide Level 21 Anion Gap 17 H Blood Urea Nitrogen 29 H Creatinine 2.53 H Glucose Level 114 Calcium Level 9.3 Medications Medications Current Medications Quetiapine Fumarate (Seroquel) 100 mg BID PO Last administered on 05/13/17 21: 05; Admin Dose 100 MG; Start 05/12/17 at 21:00 Ascorbic Acid (Vitamin C) 500 mg DAILY PO Last administered on 05/13/17 08:36 ; Admin Dose 500 MG; Start 05/13/17 at 09:00 Amlodipine Besylate (Norvasc) 5 mg DAILY PO Last administered on 05/13/17 08: 39; Admin Dose 5 MG; Start 05/13/17 at 09:00 Atorvastatin Calcium (Lipitor) 10 mg QHS PO Last administered on 05/13/17 21: 05; Admin Dose 10 MG; Start 05/12/17 at 21:00 Divalproex Sodium (Depakote Er) 500 mg BID PO Last administered on 05/13/17 21 :05; Admin Dose 500 MG; Start 05/12/17 at 21:00 Donepezil HCl (Aricept) 10 mg DAILY PO Last administered on 05/13/17 08:36; Admin Dose 10 MG; Start 05/13/17 at 09:00 Metoprolol Tartrate (Lopressor) 100 mg BID GTB Last administered on 05/13/17 21:06; Admin Dose 100 MG; Start 05/12/17 at 21:00 Hydralazine HCl (Apresoline) 10 mg Q4H PRN IV SBP>170 Last administered on 05/13 07:56; Admin Dose 10 MG; Start 05/12/17 at 15:30 Ondansetron HCl (Zofran Inj) 4 mg Q6H PRN IV NAUSEA AND/OR VOMITING; Start 05/12/17 at 15:30 Acetaminophen (Tylenol Tab) 650 mg Q6H PRN PO PAIN LEVEL 1-3 OR FEVER; Start 05/12/17 at 15:30 Docusate Sodium (Colace) 100 mg Q12H PRN PO CONSTIPATION; Start 05/12/17 at 15: 30 Enoxaparin Sodium (Lovenox) 30 mg DAILY SC Last administered on 05/13/17 09:39 ; Admin Dose 30 MG; Start 05/13/17 at 09:00 Famotidine 20 mg 20 mg Q24H PO Last administered on 05/13/17 21:05; Admin Dose 20 MG; Start 05/12/17 at 21:00 Piperacillin Sod/ Tazobactam Sod (Zosyn 2.25gm/ 50ml (Pmx)) 50 ml @ 200 mls/hr Q6 IVPB Last administered on 05/14/17 06:17; Admin Dose 200 MLS/HR; Start 05/13/17 at 14:45 NI WATSON MD May 14, 2017 09:10
[2017-05-14] MEDS: CIPROFLOXACIN 500 MG TAB PO SCH (13:51)
--- NOTE | 2017-05-14 13:53 | PN ---
Date/Time of Note Date/Time of Note DATE: 05/14/17 TIME: 13:50 Assessment/Plan VTE Prophylaxis VTE Prophylaxis Intervention: SCD's Lines/Catheters IV [facility] Peripheral IV Assessment/Plan Chief Complaint/Hosp Course Patient tolerates diet well, lethargic but easily arousable. No fever. Assessment/Plan - Acute cystitis. Continue abx per ID. - Sepsis secondary to number 1, resolving. is following in Infectious Disease consultation. 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 Continue BUN and creatinine. Dr. Ramsey is following patient in Nephrology consultation. - Acute metabolic encephalopathy - Diabetes mellitus. - Hypertension. - Hyperlipidemia. - Chronic urinary retention with suprapubic catheter. - Gout. - History of an intracranial hemorrhage with history of ventriculoperitoneal shunt. Further recommendations based on clinical course. Plan of care discussed with Dr. Cartagena. Problems: Exam/Review of Systems Vital Signs Vitals Vital Signs Date Time Temp Pulse Resp B/P Pulse Ox O2 Delivery O2 Flow Rate FiO2 05/14/17 07:53 98.1 78 18 174/104 96 05/12/17 13:45 Room Air Intake and Output 05/13/17 05/13/17 05/14/17 15:00 23:00 07:00 Intake Total 50 ml 860 ml 700 ml Output Total 1000 ml 900 ml Balance 50 ml -140 ml -200 ml Exam Constitutional: alert, oriented Neck: supple Respiratory: normal air movement Cardiovascular: nl pulses Gastrointestinal: non-tender, soft Genitourinary - Male: other (Suprapubic catheter) Extremities: normal pulses Results Result Diagram: 05/14/1760405/14/17 06 Results 24 hrs Laboratory Tests Test 05/14/17 06:05 White Blood Count 7.8 # Red Blood Count 5.03 Hemoglobin 15.2 Hematocrit 47.8 Mean Corpuscular Volume 95.0 Mean Corpuscular Hemoglobin 30.2 Mean Corpuscular Hemoglobin Concent 31.8 L Red Cell Distribution Width 14.2 Platelet Count 210 Mean Platelet Volume 11.3 H Neutrophils % 51.6 Lymphocytes % 35.0 Monocytes % 9.8 Eosinophils % 2.1 Basophils % 1.0 Nucleated Red Blood Cells % 0.0 Neutrophils # 4.0 Lymphocytes # 2.7 Monocytes # 0.8 Eosinophils # 0.2 Basophils # 0.1 Nucleated Red Blood Cells # 0.0 Sodium Level 147 H Potassium Level 3.7 Chloride Level 113 H Carbon Dioxide Level 21 Anion Gap 17 H Blood Urea Nitrogen 29 H Creatinine 2.53 H Glucose Level 114 Calcium Level 9.3 Medications Medications Current Medications Quetiapine Fumarate (Seroquel) 100 mg BID PO Last administered on 05/14/17 08: 46; Admin Dose 100 MG; Start 05/12/17 at 21:00 Ascorbic Acid (Vitamin C) 500 mg DAILY PO Last administered on 05/14/17 08:46 ; Admin Dose 500 MG; Start 05/13/17 at 09:00 Amlodipine Besylate (Norvasc) 5 mg DAILY PO Last administered on 05/14/17 08: 47; Admin Dose 5 MG; Start 05/13/17 at 09:00 Atorvastatin Calcium (Lipitor) 10 mg QHS PO Last administered on 05/13/17 21: 05; Admin Dose 10 MG; Start 05/12/17 at 21:00 Divalproex Sodium (Depakote Er) 500 mg BID PO Last administered on 05/14/17 08 :46; Admin Dose 500 MG; Start 05/12/17 at 21:00 Donepezil HCl (Aricept) 10 mg DAILY PO Last administered on 05/14/17 08:46; Admin Dose 10 MG; Start 05/13/17 at 09:00 Metoprolol Tartrate (Lopressor) 100 mg BID GTB Last administered on 05/14/17 08:47; Admin Dose 100 MG; Start 05/12/17 at 21:00 Hydralazine HCl (Apresoline) 10 mg Q4H PRN IV SBP>170 Last administered on 05/13 07:56; Admin Dose 10 MG; Start 05/12/17 at 15:30 Ondansetron HCl (Zofran Inj) 4 mg Q6H PRN IV NAUSEA AND/OR VOMITING; Start 05/12/17 at 15:30 Acetaminophen (Tylenol Tab) 650 mg Q6H PRN PO PAIN LEVEL 1-3 OR FEVER Last administered on 05/14/17 11:18; Admin Dose 650 MG; Start 05/12/17 at 15:30 Docusate Sodium (Colace) 100 mg Q12H PRN PO CONSTIPATION; Start 05/12/17 at 15: 30 Enoxaparin Sodium (Lovenox) 30 mg DAILY SC Last administered on 05/14/17 09:04 ; Admin Dose 30 MG; Start 05/13/17 at 09:00 Famotidine (Pepcid) 20 mg Q24H PO Last administered on 05/13/17 21:05; Admin Dose 20 MG; Start 05/12/17 at 21:00 Ciprofloxacin (Cipro) 500 mg DAILY@06 PO ; Start 05/14/17 at 14:00 MARIA ANTONIA GERMAN May 14, 2017 13:53
[2017-05-14 14:24] VITALS: BP 141/89; RESP 16
--- NOTE | 2017-05-14 16:16 | PN ---
DATE: 05/14/2017 SUBJECTIVE: No acute events overnight. The patient is awake, looks comfortable, denies pain, no fe vers. WBC 7.8, no shift, no bands. BUN 29, creatinine 2.53. MICROBIOLOGY: Urine culture grew E. coli and Enterococcus species. ANTIMICROBIALS: Patient is on Zosyn, status post Vancomycin and Cefepime. PHYSICAL EXAMINATION: GENERAL: Well-developed, elderly man in no distress. HEENT: Head atraumatic, normocephalic. Sclerae anicteric. Buccal mucosa pink. NECK: Supple. CHEST: Rise symmetrical. Breath sounds diminished to bases. HEART: S1, S2. ABDOMEN: Soft, bowel tones present. EXTREMITIES: Without cyanosis. ASSESSMENT: 1. Status post systemic inflammatory response syndrome secondary to #2. 2. Polymicrobial urinary tract infection. 3. Acute on chronic kidney disease. 4. Diabetes. 5. History of cerebrovascular accident. IMPRESSION: The patient remains stable. We are going to change antibiotics to oral ciprofloxacin a s bacteria growing in his urine is susceptible to it. Continue present care as per primary team and consultants. Dictated By: ANGI ZEPEDA OLIVE PITTER for DANIEL CORTEZ MD NI/NTS Conf#: [id number] DID#: [id number]
[2017-05-14] MEDS: hydrALAzine 20 MG INJ IV PRN (19:41)
[2017-05-14 20:00] VITALS: BP 181/92; RESP 20
[2017-05-14] MEDS: ATORVASTATIN 10 MG TAB PO SCH (20:57)
[2017-05-14] MEDS: FAMOTIDINE 20 MG TAB PO SCH (20:58)
[2017-05-14 22:37] VITALS: BP 127/77; PULSE 77; RESP 18
[2017-05-15 02:00] VITALS: BP 173/96; RESP 20
[2017-05-15] MEDS: hydrALAzine 20 MG INJ IV PRN (02:40)
[2017-05-15 03:30] VITALS: BP 129/78; PULSE 78
[2017-05-15] MEDS: CIPROFLOXACIN 500 MG TAB PO SCH (06:08)
[2017-05-15 06:13] LABS: BASOPHIL # 0.1 10^3/ul (0.0-0.1); BASOPHILS % 1.1 % (0.0-2.0); EOSINOPHILS # 0.1 10^3/ul (0.0-0.5); EOSINOPHILS % 1.2 % (0.0-7.0); HEMATOCRIT 44.8 % (42.0-52.0); HEMOGLOBIN 14.9 g/dl (14.0-18.0); LYMPHOCYTES % 26.9 % (15.0-51.0); MEAN CORPUSCULAR HEMOGLOBIN 30.6 pg (29.0-33.0); MEAN CORPUSCULAR HGB CONC 33.3 g/dl (32.0-37.0); MEAN PLATELET VOLUME 10.9 fl (7.4-10.4); MONOCYTE # 0.9 10^3/ul (0.3-0.9); NEUTROPHIL # 4.2 10^3/ul (1.6-7.5); NEUTROPHILS % 58.1 % (39.0-77.0); PLATELET COUNT 197 10^3/UL (140-415); RED BLOOD COUNT 4.87 10^6/ul (4.70-6.10); RED CELL DISTRIBUTION WIDTH 13.9 % (11.5-14.5); WHITE BLOOD COUNT 7.3 10^3/ul (4.8-10.8)
[2017-05-15 06:53] LABS: CALCIUM 9.7 mg/dl (8.4-10.2); CREATININE 2.42 mg/dl (0.61-1.24); POTASSIUM 3.5 mmol/L (3.5-5.1)
[2017-05-15 07:25] VITALS: BP 162/76; RESP 19
[2017-05-15] MEDS: AMLODIPINE 5 MG TAB PO SCH (08:27)
[2017-05-15] MEDS: DONEPEZIL 10 MG TAB PO SCH ×2 (08:27→11:49)
[2017-05-15] MEDS: QUETIAPINE 100 MG TAB PO SCH ×3 (08:27→20:06)
[2017-05-15] MEDS: ENOXAPARIN 30 MG/0.3 ML SYG SC SCH ×2 (08:27→11:55)
[2017-05-15] MEDS: METOPROLOL 100 MG TAB GTB SCH ×2 (08:27→20:08)
[2017-05-15] MEDS: DIVALPROEX (ER) 500 MG TAB PO SCH ×3 (08:27→20:06)
[2017-05-15] MEDS: ASCORBIC ACID 500 MG TAB PO SCH ×2 (08:27→11:49)
[2017-05-15] MEDS ORDERED: FLUCONAZOLE 100 MG TAB PO ONE (10:30)
--- NOTE | 2017-05-15 13:17 | CONS ---
Date/Time of Note Date/Time of Note DATE: 05/15/17 TIME: 13:15 Assessment/Plan Assessment/Plan Chief Complaint/Hosp Course SUBJECTIVE: No acute events overnight. The patient is more confused today, refusing medications, awake, looks comfortable, no fevers. MICROBIOLOGY: Urine culture grew E. coli, St aureus, Enterococcus species and C albicans. ANTIMICROBIALS: Cipro PHYSICAL EXAMINATION: GENERAL: Well-developed, elderly man in no distress. HEENT: Head atraumatic, normocephalic. Sclerae anicteric. Buccal mucosa pink. NECK: Supple. CHEST: Rise symmetrical. Breath sounds diminished to bases. HEART: S1, S2. ABDOMEN: Soft, bowel tones present. EXTREMITIES: Without cyanosis. ASSESSMENT: 1. Status post systemic inflammatory response syndrome secondary to #2. 2. Polymicrobial urinary tract infection. 3. Acute on chronic kidney disease. 4. Diabetes. 5. History of cerebrovascular accident. IMPRESSION: The patient remains stable. Will change abx to IV Diflucan, Vanco and Rocephin, await for final cx. Continue present care as per primary team and consultants. DW family DW RN Problems: Consultation Date/Type/Reason Admit Date/Time May 12, 2017 at 10:53 Initial Consult Date 05/12/17 Type of Consultation: ID Referring Provider: VANESSA LOPES MD Exam/Review of Systems Vital Signs Vitals Vital Signs Date Time Temp Pulse Resp B/P Pulse Ox O2 Delivery O2 Flow Rate FiO2 05/15/17 07:25 99.1 102 19 162/76 96 05/14/17 22:37 Nasal Cannula Intake and Output 05/14/17 05/14/17 05/15/17 15:00 23:00 07:00 Intake Total 750 ml 640 ml Output Total 1200 ml 950 ml Balance -450 ml -310 ml Results Result Diagram: 05/15/17 0530 05/15/17 0530 Results 24 hrs Laboratory Tests Test 05/15/17 05:30 White Blood Count 7.3 Red Blood Count 4.87 Hemoglobin 14.9 Hematocrit 44.8 Mean Corpuscular Volume 92.0 Mean Corpuscular Hemoglobin 30.6 Mean Corpuscular Hemoglobin Concent 33.3 Red Cell Distribution Width 13.9 Platelet Count 197 Mean Platelet Volume 10.9 H Neutrophils % 58.1 Lymphocytes % 26.9 Monocytes % 12.0 H Eosinophils % 1.2 Basophils % 1.1 Nucleated Red Blood Cells % 0.0 Neutrophils # 4.2 Lymphocytes # 2.0 Monocytes # 0.9 Eosinophils # 0.1 Basophils # 0.1 Nucleated Red Blood Cells # 0.0 Sodium Level 141 Potassium Level 3.5 Chloride Level 110 Carbon Dioxide Level 22 Anion Gap 13 Blood Urea Nitrogen 30 H Creatinine 2.42 H Glucose Level 121 Calcium Level 9.7 Medications Medications Current Medications Quetiapine Fumarate (Seroquel) 100 mg BID PO Last administered on 05/15/17 11: 49; Admin Dose 100 MG; Start 05/12/17 at 21:00 Ascorbic Acid (Vitamin C) 500 mg DAILY PO Last administered on 05/15/17 11:49 ; Admin Dose 500 MG; Start 05/13/17 at 09:00 Amlodipine Besylate (Norvasc) 5 mg DAILY PO Last administered on 05/14/17 08: 47; Admin Dose 5 MG; Start 05/13/17 at 09:00 Atorvastatin Calcium (Lipitor) 10 mg QHS PO Last administered on 05/14/17 20: 57; Admin Dose 10 MG; Start 05/12/17 at 21:00 Divalproex Sodium (Depakote Er) 500 mg BID PO Last administered on 05/15/17 11 :49; Admin Dose 500 MG; Start 05/12/17 at 21:00 Donepezil HCl (Aricept) 10 mg DAILY PO Last administered on 05/15/17 11:49; Admin Dose 10 MG; Start 05/13/17 at 09:00 Metoprolol Tartrate (Lopressor) 100 mg BID GTB Last administered on 05/14/17 20:58; Admin Dose 100 MG; Start 05/12/17 at 21:00 Hydralazine HCl (Apresoline) 10 mg Q4H PRN IV SBP>170 Last administered on 05/15 02:40; Admin Dose 10 MG; Start 05/12/17 at 15:30 Ondansetron HCl (Zofran Inj) 4 mg Q6H PRN IV NAUSEA AND/OR VOMITING; Start 05/12/17 at 15:30 Acetaminophen (Tylenol Tab) 650 mg Q6H PRN PO PAIN LEVEL 1-3 OR FEVER Last administered on 05/14/17 11:18; Admin Dose 650 MG; Start 05/12/17 at 15:30 Docusate Sodium (Colace) 100 mg Q12H PRN PO CONSTIPATION; Start 05/12/17 at 15: 30 Enoxaparin Sodium (Lovenox) 30 mg DAILY SC Last administered on 05/15/17 11:55 ; Admin Dose 30 MG; Start 05/13/17 at 09:00 Famotidine (Pepcid) 20 mg Q24H PO Last administered on 05/14/17 20:58; Admin Dose 20 MG; Start 05/12/17 at 21:00 Ciprofloxacin (Cipro) 500 mg DAILY@06 PO Last administered on 05/15/17 06:08; Admin Dose 500 MG; Start 05/14/17 at 14:00 Fluconazole (Diflucan) 100 mg DAILY PO ; Start 05/16/17 at 09:00 ANGI ZEPEDA NP May 15, 2017 13:17
[2017-05-15] MEDS: FLUCONAZOLE 100 MG/NS (PMX) 50 ML IVPB SCH (13:30)
[2017-05-15] MEDS ORDERED: VANCOMYCIN IV PER PHARMACY XX SCH (13:30)
[2017-05-15] MEDS: CEFTRIAXONE 1 GM/50 ML (PMX) 50 ML IVPB SCH (14:13)
[2017-05-15] MEDS ORDERED: VANCOMYCIN 1.25 GM in SOD CHLORIDE 0.9% 250 ML IVPB SCH (14:30)
[2017-05-15 14:45] VITALS: BP 138/83; RESP 19
--- NOTE | 2017-05-15 14:47 | PN ---
Date/Time of Note Date/Time of Note DATE: 05/15/17 TIME: 14:31 Assessment/Plan VTE Prophylaxis VTE Prophylaxis Intervention: other Lines/Catheters IV [facility] Type (from [facility] Peripheral IV Assessment/Plan Assessment/Plan - Acute cystitis. Continue abx per ID. - Sepsis secondary to number 1, resolving. is following in Infectious Disease consultation. 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 Continue BUN and creatinine. Dr. Ramsey is following patient in Nephrology consultation. - Acute metabolic encephalopathy - Diabetes mellitus. - Hypertension. - Hyperlipidemia. - Chronic urinary retention with suprapubic catheter. - Gout. - History of an intracranial hemorrhage with history of ventriculoperitoneal shunt. Further recommendations based on clinical course. Plan of care discussed with Dr. Cartagena. Subjective 24 Hr Interval Summary Free Text/Dictation Hallucinations reported by staff-no fall/injury reported,w ill get psych consult - dw staff Exam/Review of Systems Vital Signs Vitals Vital Signs Date Time Temp Pulse Resp B/P Pulse Ox O2 Delivery O2 Flow Rate FiO2 05/15/17 07:25 99.1 102 19 162/76 96 05/14/17 22:37 Nasal Cannula Intake and Output 05/14/17 05/14/17 05/15/17 15:00 23:00 07:00 Intake Total 750 ml 640 ml Output Total 1200 ml 950 ml Balance -450 ml -310 ml Exam Constitutional: alert Respiratory: clear to auscultation, normal air movement Cardiovascular: nl pulses, regular rate and rhythm Gastrointestinal: soft Neurological: confused Results Result Diagram: 05/15/17 0530 05/15/17 0530 Results 24 hrs Laboratory Tests Test 05/15/17 05:30 White Blood Count 7.3 Red Blood Count 4.87 Hemoglobin 14.9 Hematocrit 44.8 Mean Corpuscular Volume 92.0 Mean Corpuscular Hemoglobin 30.6 Mean Corpuscular Hemoglobin Concent 33.3 Red Cell Distribution Width 13.9 Platelet Count 197 Mean Platelet Volume 10.9 H Neutrophils % 58.1 Lymphocytes % 26.9 Monocytes % 12.0 H Eosinophils % 1.2 Basophils % 1.1 Nucleated Red Blood Cells % 0.0 Neutrophils # 4.2 Lymphocytes # 2.0 Monocytes # 0.9 Eosinophils # 0.1 Basophils # 0.1 Nucleated Red Blood Cells # 0.0 Sodium Level 141 Potassium Level 3.5 Chloride Level 110 Carbon Dioxide Level 22 Anion Gap 13 Blood Urea Nitrogen 30 H Creatinine 2.42 H Glucose Level 121 Calcium Level 9.7 Medications Medications Current Medications Quetiapine Fumarate (Seroquel) 100 mg BID PO Last administered on 05/15/17 11: 49; Admin Dose 100 MG; Start 05/12/17 at 21:00 Ascorbic Acid (Vitamin C) 500 mg DAILY PO Last administered on 05/15/17 11:49 ; Admin Dose 500 MG; Start 05/13/17 at 09:00 Amlodipine Besylate (Norvasc) 5 mg DAILY PO Last administered on 05/14/17 08: 47; Admin Dose 5 MG; Start 05/13/17 at 09:00 Atorvastatin Calcium (Lipitor) 10 mg QHS PO Last administered on 05/14/17 20: 57; Admin Dose 10 MG; Start 05/12/17 at 21:00 Divalproex Sodium (Depakote Er) 500 mg BID PO Last administered on 05/15/17 11 :49; Admin Dose 500 MG; Start 05/12/17 at 21:00 Donepezil HCl (Aricept) 10 mg DAILY PO Last administered on 05/15/17 11:49; Admin Dose 10 MG; Start 05/13/17 at 09:00 Metoprolol Tartrate (Lopressor) 100 mg BID GTB Last administered on 05/14/17 20:58; Admin Dose 100 MG; Start 05/12/17 at 21:00 Hydralazine HCl (Apresoline) 10 mg Q4H PRN IV SBP>170 Last administered on 05/15 02:40; Admin Dose 10 MG; Start 05/12/17 at 15:30 Ondansetron HCl (Zofran Inj) 4 mg Q6H PRN IV NAUSEA AND/OR VOMITING; Start 05/12/17 at 15:30 Acetaminophen (Tylenol Tab) 650 mg Q6H PRN PO PAIN LEVEL 1-3 OR FEVER Last administered on 05/14/17 11:18; Admin Dose 650 MG; Start 05/12/17 at 15:30 Docusate Sodium (Colace) 100 mg Q12H PRN PO CONSTIPATION; Start 05/12/17 at 15: 30 Enoxaparin Sodium (Lovenox) 30 mg DAILY SC Last administered on 05/15/17 11:55 ; Admin Dose 30 MG; Start 05/13/17 at 09:00 Famotidine 20 mg 20 mg Q24H PO Last administered on 05/14/17 20:58; Admin Dose 20 MG; Start 05/12/17 at 21:00 Ceftriaxone Sodium 50 ml @ 100 mls/hr Q24H IVPB Last administered on 14:13; Admin Dose 100 MLS/HR; Start 05/15/17 at 13:30 Fluconazole/ Sodium Chloride 50 ml @ 50 mls/hr Q24H IVPB ; Start 05/15/17 at 13: 30 Vancomycin HCl/ Sodium Chloride (Vancocin/NS) 250 ml @ 83.333 mls/ hr Q36H IVPB ; Start 05/15/17 at 14:30 PANDA SKAGGS May 15, 2017 14:45
--- NOTE | 2017-05-15 17:00 | CONS ---
Date/Time of Note Date/Time of Note DATE: 05/15/17 TIME: 16:59 Assessment/Plan Assessment/Plan Additional Assessment/Plan 1. acute on chronic renal failure due to ATN from sepsis and prerenal azotemia- Improving with IVF hydration 2. sepsis due to UTI 3. 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 HTN 5. HL 6. H/o CVA with residual left weakness Plan : IV abx cefepime and Vancomycin, ID consulted, renally dose all abx Cr 2.42 today pt previously had a fulll CKD work up and his Renal US on last admission in 2016 showed Bilateral cortical thinning and increased echogenicity compatible with chronic medical renal disease. No evidence of hydronephrosis, nephrolithiasis or obstructive uropathy. continue Suprapubic Catheter care, will follow up Consultation Date/Type/Reason Admit Date/Time May 12, 2017 at 10:53 Initial Consult Date 05/12/17 Type of Consultation: NEPHROLOGY Referring Provider: VANESSA LOPES MD Exam/Review of Systems Vital Signs Vitals Vital Signs Date Time Temp Pulse Resp B/P Pulse Ox O2 Delivery O2 Flow Rate FiO2 05/15/17 14:45 97.6 109 19 138/83 96 05/14/17 22:37 Nasal Cannula Intake and Output 05/14/17 05/14/17 05/15/17 14:59 22:59 06:59 Intake Total 750 ml 640 ml Output Total 1200 ml 950 ml Balance -450 ml -310 ml Exam Constitutional: alert, awake Respiratory: clear to auscultation, diminished breath sounds, normal air movement Cardiovascular: regular rate and rhythm Gastrointestinal: non-tender, soft Neurological: other (awake, alert, follows simple commands ) Results Result Diagram: 05/15/17 0530 05/15/17 0530 Results 24 hrs Laboratory Tests Test 05/15/17 05:30 White Blood Count 7.3 Red Blood Count 4.87 Hemoglobin 14.9 Hematocrit 44.8 Mean Corpuscular Volume 92.0 Mean Corpuscular Hemoglobin 30.6 Mean Corpuscular Hemoglobin Concent 33.3 Red Cell Distribution Width 13.9 Platelet Count 197 Mean Platelet Volume 10.9 H Neutrophils % 58.1 Lymphocytes % 26.9 Monocytes % 12.0 H Eosinophils % 1.2 Basophils % 1.1 Nucleated Red Blood Cells % 0.0 Neutrophils # 4.2 Lymphocytes # 2.0 Monocytes # 0.9 Eosinophils # 0.1 Basophils # 0.1 Nucleated Red Blood Cells # 0.0 Sodium Level 141 Potassium Level 3.5 Chloride Level 110 Carbon Dioxide Level 22 Anion Gap 13 Blood Urea Nitrogen 30 H Creatinine 2.42 H Glucose Level 121 Calcium Level 9.7 Medications Medications Current Medications Quetiapine Fumarate (Seroquel) 100 mg BID PO Last administered on 05/15/17 11: 49; Admin Dose 100 MG; Start 05/12/17 at 21:00 Ascorbic Acid (Vitamin C) 500 mg DAILY PO Last administered on 05/15/17 11:49 ; Admin Dose 500 MG; Start 05/13/17 at 09:00 Amlodipine Besylate (Norvasc) 5 mg DAILY PO Last administered on 05/14/17 08: 47; Admin Dose 5 MG; Start 05/13/17 at 09:00 Atorvastatin Calcium (Lipitor) 10 mg QHS PO Last administered on 05/14/17 20: 57; Admin Dose 10 MG; Start 05/12/17 at 21:00 Divalproex Sodium (Depakote Er) 500 mg BID PO Last administered on 05/15/17 11 :49; Admin Dose 500 MG; Start 05/12/17 at 21:00 Donepezil HCl (Aricept) 10 mg DAILY PO Last administered on 05/15/17 11:49; Admin Dose 10 MG; Start 05/13/17 at 09:00 Metoprolol Tartrate (Lopressor) 100 mg BID GTB Last administered on 05/14/17 20:58; Admin Dose 100 MG; Start 05/12/17 at 21:00 Hydralazine HCl (Apresoline) 10 mg Q4H PRN IV SBP>170 Last administered on 05/15 02:40; Admin Dose 10 MG; Start 05/12/17 at 15:30 Ondansetron HCl (Zofran Inj) 4 mg Q6H PRN IV NAUSEA AND/OR VOMITING; Start 05/12/17 at 15:30 Acetaminophen (Tylenol Tab) 650 mg Q6H PRN PO PAIN LEVEL 1-3 OR FEVER Last administered on 05/14/17 11:18; Admin Dose 650 MG; Start 05/12/17 at 15:30 Docusate Sodium (Colace) 100 mg Q12H PRN PO CONSTIPATION; Start 05/12/17 at 15: 30 Enoxaparin Sodium (Lovenox) 30 mg DAILY SC Last administered on 05/15/17 11:55 ; Admin Dose 30 MG; Start 05/13/17 at 09:00 Famotidine 20 mg 20 mg Q24H PO Last administered on 05/14/17 20:58; Admin Dose 20 MG; Start 05/12/17 at 21:00 Ceftriaxone Sodium 50 ml @ 100 mls/hr Q24H IVPB Last administered on 14:13; Admin Dose 100 MLS/HR; Start 05/15/17 at 13:30 Fluconazole/ Sodium Chloride 50 ml @ 50 mls/hr Q24H IVPB ; Start 05/15/17 at 13: 30 Vancomycin HCl/ Sodium Chloride (Vancocin/NS) 250 ml @ 83.333 mls/ hr Q36H IVPB Last administered on 05/15/17 15:08; Admin Dose 83.333 MLS/HR; Start 05/15/17 at 14:30 NI WATSON MD May 15, 2017 17:00
[2017-05-15] MEDS ORDERED: LORAZEPAM 2 MG INJ IV PRN (18:30)
[2017-05-15 20:07] VITALS: BP 134/91; RESP 20
[2017-05-15] MEDS: ATORVASTATIN 10 MG TAB PO SCH (20:09)
[2017-05-15] MEDS: FAMOTIDINE 20 MG TAB PO SCH (20:09)
[2017-05-16] VITALS (14 sets, daily range): BP systolic 105–187; BP diastolic 60–105; PULSE 62–97; RESP 14–20
[2017-05-16] MEDS: LORAZEPAM 2 MG INJ IV PRN (00:03)
[2017-05-16 06:03] LABS: BASOPHIL # 0.1 10^3/ul (0.0-0.1); BASOPHILS % 1.1 % (0.0-2.0); EOSINOPHILS # 0.1 10^3/ul (0.0-0.5); EOSINOPHILS % 1.3 % (0.0-7.0); HEMATOCRIT 42.8 % (42.0-52.0); HEMOGLOBIN 14.1 g/dl (14.0-18.0); LYMPHOCYTES # 2.4 10^3/ul (0.8-2.9); LYMPHOCYTES % 34.3 % (15.0-51.0); MEAN CORPUSCULAR HEMOGLOBIN 30.6 pg (29.0-33.0); MEAN CORPUSCULAR HGB CONC 32.9 g/dl (32.0-37.0); MEAN CORPUSCULAR VOLUME 92.8 fl (82.0-101.0); MONOCYTE # 0.9 10^3/ul (0.3-0.9); MONOCYTES % 13.3 % (0.0-11.0); NEUTROPHIL # 3.5 10^3/ul (1.6-7.5); NEUTROPHILS % 49.4 % (39.0-77.0); PLATELET COUNT 193 10^3/UL (140-415); RED BLOOD COUNT 4.61 10^6/ul (4.70-6.10); RED CELL DISTRIBUTION WIDTH 13.9 % (11.5-14.5); WHITE BLOOD COUNT 7.1 10^3/ul (4.8-10.8)
[2017-05-16 06:41] LABS: CALCIUM 9.5 mg/dl (8.4-10.2); CREATININE 2.33 mg/dl (0.61-1.24); POTASSIUM 3.8 mmol/L (3.5-5.1)
[2017-05-16] MEDS: hydrALAzine 20 MG INJ IV PRN ×2 (08:14→17:28)
[2017-05-16] MEDS: DIVALPROEX (ER) 500 MG TAB PO SCH (08:16)
[2017-05-16] MEDS: ASCORBIC ACID 500 MG TAB PO SCH (08:16)
[2017-05-16] MEDS: QUETIAPINE 100 MG TAB PO SCH ×3 (08:16→21:49)
[2017-05-16] MEDS: DONEPEZIL 10 MG TAB PO SCH (08:16)
[2017-05-16] MEDS: ENOXAPARIN 30 MG/0.3 ML SYG SC SCH (08:17)
[2017-05-16] MEDS ORDERED: FLUCONAZOLE 100 MG TAB PO SCH (09:00)
[2017-05-16] MEDS: AMLODIPINE 5 MG TAB PO SCH (09:12)
[2017-05-16] MEDS: METOPROLOL 100 MG TAB GTB SCH ×3 (09:13→21:49)
[2017-05-16] MEDS: CEFTRIAXONE 1 GM/50 ML (PMX) 50 ML IVPB SCH (14:05)
[2017-05-16] MEDS: FLUCONAZOLE 100 MG/NS (PMX) 50 ML IVPB SCH (14:48)
--- NOTE | 2017-05-16 15:43 | CONS ---
Date/Time of Note Date/Time of Note DATE: 05/16/17 TIME: 15:41 Assessment/Plan Assessment/Plan Additional Assessment/Plan 1. acute on chronic renal failure due to ATN from sepsis and prerenal azotemia- Improving with IVF hydration 2. sepsis due to UTI 3. 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 HTN 5. HL 6. H/o CVA with residual left weakness Plan : IV abx cefepime and Vancomycin, ID consulted, renally dose all abx Cr 2.33 , Na 147 today pt previously had a fulll CKD work up and his Renal US on last admission in 2016 showed Bilateral cortical thinning and increased echogenicity compatible with chronic medical renal disease. No evidence of hydronephrosis, nephrolithiasis or obstructive uropathy. continue Suprapubic Catheter care, will follow up Consultation Date/Type/Reason Admit Date/Time May 12, 2017 at 10:53 Initial Consult Date 05/12/17 Type of Consultation: NEPHROLOGY Referring Provider: VANESSA LOPES MD 24 HR Interval Summary Free Text/Dictation Na 147, Cr 2.33, BP stable Exam/Review of Systems Vital Signs Vitals Vital Signs Date Time Temp Pulse Resp B/P Pulse Ox O2 Delivery O2 Flow Rate FiO2 05/16/17 15:25 97.7 72 14 138/86 97 05/16/17 14:24 Room Air Intake and Output 05/15/17 05/15/17 05/16/17 15:00 23:00 07:00 Intake Total 1480 ml Output Total 650 ml Balance 830 ml Exam Constitutional: alert, awake Respiratory: clear to auscultation, diminished breath sounds, normal air movement Cardiovascular: regular rate and rhythm Gastrointestinal: non-tender, soft Neurological: other (awake, alert, follows simple commands ) Results Result Diagram: 05/16/1752105/16/17521 Results 24 hrs Laboratory Tests Test 05/16/17 05:22 White Blood Count 7.1 Red Blood Count 4.61 L Hemoglobin 14.1 Hematocrit 42.8 Mean Corpuscular Volume 92.8 Mean Corpuscular Hemoglobin 30.6 Mean Corpuscular Hemoglobin Concent 32.9 Red Cell Distribution Width 13.9 Platelet Count 193 Mean Platelet Volume 11.0 H Neutrophils % 49.4 Lymphocytes % 34.3 Monocytes % 13.3 H Eosinophils % 1.3 Basophils % 1.1 Nucleated Red Blood Cells % 0.0 Neutrophils # 3.5 Lymphocytes # 2.4 Monocytes # 0.9 Eosinophils # 0.1 Basophils # 0.1 Nucleated Red Blood Cells # 0.0 Sodium Level 147 H Potassium Level 3.8 Chloride Level 112 H Carbon Dioxide Level 24 Anion Gap 15 Blood Urea Nitrogen 28 H Creatinine 2.33 H Glucose Level 113 Calcium Level 9.5 Medications Medications Current Medications Quetiapine Fumarate (Seroquel) 100 mg BID PO Last administered on 05/16/17 08: 16; Admin Dose 100 MG; Start 05/12/17 at 21:00 Ascorbic Acid (Vitamin C) 500 mg DAILY PO Last administered on 05/16/17 08:16 ; Admin Dose 500 MG; Start 05/13/17 at 09:00 Amlodipine Besylate (Norvasc) 5 mg DAILY PO Last administered on 05/16/17 09: 12; Admin Dose 5 MG; Start 05/13/17 at 09:00 Atorvastatin Calcium (Lipitor) 10 mg QHS PO Last administered on 05/15/17 20: 09; Admin Dose 10 MG; Start 05/12/17 at 21:00 Divalproex Sodium (Depakote Er) 500 mg BID PO Last administered on 05/16/17 08 :16; Admin Dose 500 MG; Start 05/12/17 at 21:00 Donepezil HCl (Aricept) 10 mg DAILY PO Last administered on 05/16/17 08:16; Admin Dose 10 MG; Start 05/13/17 at 09:00 Metoprolol Tartrate (Lopressor) 100 mg BID GTB Last administered on 05/16/17 09:13; Admin Dose 100 MG; Start 05/12/17 at 21:00 Hydralazine HCl (Apresoline) 10 mg Q4H PRN IV SBP>170 Last administered on 05/16 08:14; Admin Dose 10 MG; Start 05/12/17 at 15:30 Ondansetron HCl (Zofran Inj) 4 mg Q6H PRN IV NAUSEA AND/OR VOMITING; Start 05/12/17 at 15:30 Acetaminophen (Tylenol Tab) 650 mg Q6H PRN PO PAIN LEVEL 1-3 OR FEVER Last administered on 05/14/17 11:18; Admin Dose 650 MG; Start 05/12/17 at 15:30 Docusate Sodium (Colace) 100 mg Q12H PRN PO CONSTIPATION; Start 05/12/17 at 15: 30 Enoxaparin Sodium (Lovenox) 30 mg DAILY SC Last administered on 05/16/17 08:17 ; Admin Dose 30 MG; Start 05/13/17 at 09:00 Famotidine 20 mg 20 mg Q24H PO Last administered on 05/15/17 20:09; Admin Dose 20 MG; Start 05/12/17 at 21:00 Ceftriaxone Sodium 50 ml @ 100 mls/hr Q24H IVPB Last administered on 14:05; Admin Dose 100 MLS/HR; Start 05/15/17 at 13:30 Fluconazole/ Sodium Chloride (Diflucan 100 Mg/ NS (Pmx)) 50 ml @ 50 mls/hr Q24H IVPB Last administered on 05/16/17 14:48; Admin Dose 50 MLS/HR; Start at 13:30 Lorazepam 0.5 mg 0.5 mg Q2H PRN IV AGITATION Last administered on 05/16/17 00: 03; Admin Dose 0.5 MG; Start 05/16/17 at 00:00 Vancomycin HCl (Vancocin) 250 ml @ 125 mls/hr Q36H IVPB ; Start 05/17/17 at 03: 00 NI WATSON MD May 16, 2017 15:43
--- NOTE | 2017-05-16 17:24 | PN ---
Date/Time of Note Date/Time of Note DATE: 05/16/17 TIME: 17:21 Assessment/Plan VTE Prophylaxis VTE Prophylaxis Intervention: SCD's Lines/Catheters IV Catheter Type (from [facility]): [place] [facility] Urinary Cath still in place: Yes Reason Cath still needed: urinary retention Assessment/Plan Chief Complaint/Hosp Course Patient is lethargic but easily arousable, patient is to name and situation. Pending at telemetry psych evaluation due to complaints of hallucination by nursing staff yesterday. CT scan of the head ordered in patient with history intracranial hemorrhage with ventriculoperitoneal shunt. Assessment/Plan - Acute cystitis. Continue abx per ID. - Sepsis secondary to number 1, resolving. is following in Infectious Disease consultation. 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 Continue BUN and creatinine. Dr. Ramsey is following patient in Nephrology consultation. - Acute metabolic encephalopathy - Diabetes mellitus. - Hypertension. - Hyperlipidemia. - Chronic urinary retention with suprapubic catheter. - Gout. - History of an intracranial hemorrhage with history of ventriculoperitoneal shunt. Further recommendations based on clinical course. Plan of care discussed with Dr. Cartagena. Problems: Exam/Review of Systems Vital Signs Vitals Vital Signs Date Time Temp Pulse Resp B/P Pulse Ox O2 Delivery O2 Flow Rate FiO2 05/16/17 15:25 97.7 72 14 138/86 97 05/16/17 14:24 Room Air Intake and Output 05/15/17 05/15/17 05/16/17 15:00 23:00 07:00 Intake Total 1480 ml Output Total 650 ml Balance 830 ml Exam Constitutional: alert, oriented Neck: supple Respiratory: normal air movement Cardiovascular: nl pulses Gastrointestinal: non-tender, soft Genitourinary - Male: other (Suprapubic catheter) Extremities: normal pulses Results Result Diagram: 05/16/1752105/16/17521 Results 24 hrs Laboratory Tests Test 05/16/17 05:22 White Blood Count 7.1 Red Blood Count 4.61 L Hemoglobin 14.1 Hematocrit 42.8 Mean Corpuscular Volume 92.8 Mean Corpuscular Hemoglobin 30.6 Mean Corpuscular Hemoglobin Concent 32.9 Red Cell Distribution Width 13.9 Platelet Count 193 Mean Platelet Volume 11.0 H Neutrophils % 49.4 Lymphocytes % 34.3 Monocytes % 13.3 H Eosinophils % 1.3 Basophils % 1.1 Nucleated Red Blood Cells % 0.0 Neutrophils # 3.5 Lymphocytes # 2.4 Monocytes # 0.9 Eosinophils # 0.1 Basophils # 0.1 Nucleated Red Blood Cells # 0.0 Sodium Level 147 H Potassium Level 3.8 Chloride Level 112 H Carbon Dioxide Level 24 Anion Gap 15 Blood Urea Nitrogen 28 H Creatinine 2.33 H Glucose Level 113 Calcium Level 9.5 Medications Medications Current Medications Quetiapine Fumarate (Seroquel) 100 mg BID PO Last administered on 05/16/17 08: 16; Admin Dose 100 MG; Start 05/12/17 at 21:00 Ascorbic Acid (Vitamin C) 500 mg DAILY PO Last administered on 05/16/17 08:16 ; Admin Dose 500 MG; Start 05/13/17 at 09:00 Amlodipine Besylate (Norvasc) 5 mg DAILY PO Last administered on 05/16/17 09: 12; Admin Dose 5 MG; Start 05/13/17 at 09:00 Atorvastatin Calcium (Lipitor) 10 mg QHS PO Last administered on 05/15/17 20: 09; Admin Dose 10 MG; Start 05/12/17 at 21:00 Divalproex Sodium (Depakote Er) 500 mg BID PO Last administered on 05/16/17 08 :16; Admin Dose 500 MG; Start 05/12/17 at 21:00 Donepezil HCl (Aricept) 10 mg DAILY PO Last administered on 05/16/17 08:16; Admin Dose 10 MG; Start 05/13/17 at 09:00 Metoprolol Tartrate (Lopressor) 100 mg BID GTB Last administered on 05/16/17 09:13; Admin Dose 100 MG; Start 05/12/17 at 21:00 Hydralazine HCl (Apresoline) 10 mg Q4H PRN IV SBP>170 Last administered on 05/16 08:14; Admin Dose 10 MG; Start 05/12/17 at 15:30 Ondansetron HCl (Zofran Inj) 4 mg Q6H PRN IV NAUSEA AND/OR VOMITING; Start 05/12/17 at 15:30 Acetaminophen (Tylenol Tab) 650 mg Q6H PRN PO PAIN LEVEL 1-3 OR FEVER Last administered on 10/4/17at 11:18; Admin Dose 650 MG; Start 05/12/17 at 15:30 Docusate Sodium (Colace) 100 mg Q12H PRN PO CONSTIPATION; Start 05/12/17 at 15: 30 Enoxaparin Sodium (Lovenox) 30 mg DAILY SC Last administered on 05/16/17 08:17 ; Admin Dose 30 MG; Start 05/13/17 at 09:00 Famotidine 20 mg 20 mg Q24H PO Last administered on 05/15/17 20:09; Admin Dose 20 MG; Start 05/12/17 at 21:00 Ceftriaxone Sodium 50 ml @ 100 mls/hr Q24H IVPB Last administered on 14:05; Admin Dose 100 MLS/HR; Start 05/15/17 at 13:30 Fluconazole/ Sodium Chloride (Diflucan 100 Mg/ NS (Pmx)) 50 ml @ 50 mls/hr Q24H IVPB Last administered on 05/16/17 14:48; Admin Dose 50 MLS/HR; Start at 13:30 Lorazepam 0.5 mg 0.5 mg Q2H PRN IV AGITATION Last administered on 05/16/17 00: 03; Admin Dose 0.5 MG; Start 05/16/17 at 00:00 Vancomycin HCl (Vancocin) 250 ml @ 125 mls/hr Q36H IVPB ; Start 05/17/17 at 03: 00 MARIA ANTONIA GERMAN May 16, 2017 17:23
--- NOTE | 2017-05-16 18:11 | RADRPT ---
PROCEDURE: CT Brain without contrast. CLINICAL INDICATION: Altered level of consciousness. History of TRAUMA MANAGER shunt. TECHNIQUE: A CT of the brain without contrast was performed utilizing axial sections from the skul l base through the vertex. The patient was scanned without intravenous contrast enhancement. [place] l and coronal reformatted images were obtained using the data from the axial images. Total exam DLP is 720.23 mGy-cm. CTDIvol is 44.58 mGy. One or more of the following dose reduction techniques we re used: Automated exposure control, adjustment of the mA and/or kV according to patient size, use o f iterative reconstruction technique. COMPARISON: CT scan of the brain dated 03/13/2017. FINDINGS: There is normal orellana-white matter differentiation. The ventricles and cisterns are normal in size. As seen previously, there is a transparietal TRAUMA MANAGER shun t catheter terminating lateral to the left lateral ventricle. There is encephalomalacia in the left cerebellar hemisphere superiorly related to prior surgery at t his site, unchanged. There is no intracranial hemorrhage or space-occupying lesion. There has been previous suboccipital craniotomy. The calvarium is otherwise unremarkable. IMPRESSION: 1. No change from 03/13/2017. 2. No intracranial hemorrhage. 3. Shunt catheter as described. 4. Previous suboccipital craniotomy and surgery of the left cerebellum. RPTAT: QQ .Gabriele Billings MD, Date Time Electronically viewed and signed by .Gabriele Billings MD, on 05/16/2017 18:10 .R/
--- NOTE | 2017-05-16 18:12 | PN ---
DATE: 05/16/2017 INFECTIOUS DISEASE PROGRESS NOTE SUBJECTIVE: No acute changes overnight. The patient is sleeping. He is still confused per report. He is in no distress. MICROBIOLOGY: Urine culture grew Daniela albicans and MRSA, enterococcus and E. coli. ANTIMICROBIALS: The patient is on vancomycin and Rocephin. He is also on fluconazole. INDWELLINGS: Suprapubic catheter. PHYSICAL EXAMINATION: GENERAL: This is a well-developed, fragile, elderly man who is in no distress. HEENT: Head atraumatic, normocephalic. Sclerae anicteric. Buccal mucosa dry. NECK: Supple. CHEST: Rise symmetrical. Breath sounds diminished to bases. HEART: S1, S2. ABDOMEN: Soft, bowel tones present. EXTREMITIES: No cyanosis. ASSESSMENT: 1. Multidrug resistant urinary tract infection. 2. Acute encephalopathy. 3. Chronic kidney disease. 4. Diabetes. 5. History of cerebrovascular accident. 6. Chronic suprapubic catheter. PLAN: The patient remains stable, covered with appropriate antimicrobials. Continue present care. Dictated By: ANGI ZEPEDA [employer]OR [employer]ATER for DANIEL HAYES/GORGE Conf#: [id number] DID#: [id number]
[2017-05-16] MEDS: ATORVASTATIN 10 MG TAB PO SCH ×2 (21:00→21:49)
[2017-05-16] MEDS: DIVALPROEX (ER) 250 MG TAB PO SCH (21:00)
[2017-05-16] MEDS: FAMOTIDINE 20 MG TAB PO SCH (21:49)
[2017-05-17] VITALS (8 sets, daily range): BP systolic 103–152; BP diastolic 61–88; PULSE 99; RESP 16–18
[2017-05-17] MEDS: VANCOMYCIN 1 GM in NS 250 ML IVPB SCH (02:37)
[2017-05-17 05:32] LABS: BASOPHIL # 0.1 10^3/ul (0.0-0.1); BASOPHILS % 1.3 % (0.0-2.0); EOSINOPHILS # 0.1 10^3/ul (0.0-0.5); EOSINOPHILS % 1.4 % (0.0-7.0); HEMATOCRIT 44.7 % (42.0-52.0); HEMOGLOBIN 14.8 g/dl (14.0-18.0); LYMPHOCYTES # 2.7 10^3/ul (0.8-2.9); LYMPHOCYTES % 38.1 % (15.0-51.0); MEAN CORPUSCULAR HGB CONC 33.1 g/dl (32.0-37.0); MEAN CORPUSCULAR VOLUME 93.5 fl (82.0-101.0); MEAN PLATELET VOLUME 10.9 fl (7.4-10.4); MONOCYTES % 13.8 % (0.0-11.0); NEUTROPHIL # 3.2 10^3/ul (1.6-7.5); NEUTROPHILS % 45.1 % (39.0-77.0); PLATELET COUNT 204 10^3/UL (140-415); RED BLOOD COUNT 4.78 10^6/ul (4.70-6.10); RED CELL DISTRIBUTION WIDTH 13.8 % (11.5-14.5); WHITE BLOOD COUNT 7.1 10^3/ul (4.8-10.8)
[2017-05-17 05:59] LABS: CALCIUM 9.3 mg/dl (8.4-10.2); CREATININE 2.44 mg/dl (0.61-1.24); POTASSIUM 3.6 mmol/L (3.5-5.1)
[2017-05-17] MEDS: QUETIAPINE 100 MG TAB PO SCH ×3 (09:00→20:20)
[2017-05-17] MEDS: ENOXAPARIN 30 MG/0.3 ML SYG SC SCH ×2 (09:00→11:56)
[2017-05-17] MEDS: DIVALPROEX (ER) 250 MG TAB PO SCH ×3 (09:00→20:20)
[2017-05-17] MEDS: AMLODIPINE 5 MG TAB PO SCH ×2 (09:00→11:49)
[2017-05-17] MEDS: DONEPEZIL 10 MG TAB PO SCH ×2 (09:00→11:49)
[2017-05-17] MEDS: ASCORBIC ACID 500 MG TAB PO SCH ×2 (09:00→11:48)
[2017-05-17] MEDS: METOPROLOL 100 MG TAB GTB SCH ×3 (09:00→20:21)
--- NOTE | 2017-05-17 13:51 | CONS ---
Date/Time of Note Date/Time of Note DATE: 05/17/17 TIME: 13:50 Assessment/Plan Assessment/Plan Chief Complaint/Hosp Course SUBJECTIVE: No acute changes overnight. No fevers, looks comfortable MICROBIOLOGY: Urine culture grew Daniela albicans and MRSA, enterococcus and E. coli. ANTIMICROBIALS: The patient is on vancomycin, Rocephin, fluconazole. INDWELLINGS: Suprapubic catheter. PHYSICAL EXAMINATION: GENERAL: This is a well-developed, fragile, elderly man who is in no distress. HEENT: Head atraumatic, normocephalic. Sclerae anicteric. Buccal mucosa dry. NECK: Supple. CHEST: Rise symmetrical. Breath sounds diminished to bases. HEART: S1, S2. ABDOMEN: Soft, bowel tones present. EXTREMITIES: No cyanosis. ASSESSMENT: 1. Multidrug resistant urinary tract infection. 2. Acute encephalopathy. 3. Chronic kidney disease. 4. Diabetes. 5. History of cerebrovascular accident. 6. Chronic suprapubic catheter. PLAN: The patient remains stable, covered with appropriate antimicrobials. Continue present care. Problems: Consultation Date/Type/Reason Admit Date/Time May 12, 2017 at 10:53 Initial Consult Date 05/12/17 Type of Consultation: ID Referring Provider: VANESSA LOPES MD Exam/Review of Systems Vital Signs Vitals Vital Signs Date Time Temp Pulse Resp B/P Pulse Ox O2 Delivery O2 Flow Rate FiO2 05/17/17 08:05 97.7 99 18 147/81 94 05/17/17 08:00 Room Air Intake and Output 05/16/17 05/16/17 05/17/17 15:00 23:00 07:00 Intake Total 50 ml 290 ml 300 ml Output Total 600 ml 700 ml Balance 50 ml -310 ml -400 ml Results Result Diagram: 05/17/17 0510 05/17/17 0510 Results 24 hrs Laboratory Tests Test 05/17/17 05:10 White Blood Count 7.1 Red Blood Count 4.78 Hemoglobin 14.8 Hematocrit 44.7 Mean Corpuscular Volume 93.5 Mean Corpuscular Hemoglobin 31.0 Mean Corpuscular Hemoglobin Concent 33.1 Red Cell Distribution Width 13.8 Platelet Count 204 Mean Platelet Volume 10.9 H Neutrophils % 45.1 Lymphocytes % 38.1 Monocytes % 13.8 H Eosinophils % 1.4 Basophils % 1.3 Nucleated Red Blood Cells % 0.0 Neutrophils # 3.2 Lymphocytes # 2.7 Monocytes # 1.0 H Eosinophils # 0.1 Basophils # 0.1 Nucleated Red Blood Cells # 0.0 Sodium Level 146 H Potassium Level 3.6 Chloride Level 113 H Carbon Dioxide Level 21 Anion Gap 16 Blood Urea Nitrogen 32 H Creatinine 2.44 H Glucose Level 106 Calcium Level 9.3 Medications Medications Current Medications Quetiapine Fumarate (Seroquel) 100 mg BID PO Last administered on 05/17/17 11: 49; Admin Dose 100 MG; Start 05/12/17 at 21:00 Ascorbic Acid (Vitamin C) 500 mg DAILY PO Last administered on 05/17/17 11:48 ; Admin Dose 500 MG; Start 05/13/17 at 09:00 Amlodipine Besylate (Norvasc) 5 mg DAILY PO Last administered on 05/17/17 11: 49; Admin Dose 5 MG; Start 05/13/17 at 09:00 Atorvastatin Calcium (Lipitor) 10 mg QHS PO Last administered on 05/15/17 20: 09; Admin Dose 10 MG; Start 05/12/17 at 21:00 Donepezil HCl (Aricept) 10 mg DAILY PO Last administered on 05/17/17 11:49; Admin Dose 10 MG; Start 05/13/17 at 09:00 Metoprolol Tartrate (Lopressor) 100 mg BID GTB Last administered on 05/17/17 11:50; Admin Dose 100 MG; Start 05/12/17 at 21:00 Hydralazine HCl (Apresoline) 10 mg Q4H PRN IV SBP>170 Last administered on 05/16 17:28; Admin Dose 10 MG; Start 05/12/17 at 15:30 Ondansetron HCl (Zofran Inj) 4 mg Q6H PRN IV NAUSEA AND/OR VOMITING; Start 05/12/17 at 15:30 Acetaminophen (Tylenol Tab) 650 mg Q6H PRN PO PAIN LEVEL 1-3 OR FEVER Last administered on 05/14/17 11:18; Admin Dose 650 MG; Start 05/12/17 at 15:30 Docusate Sodium (Colace) 100 mg Q12H PRN PO CONSTIPATION; Start 05/12/17 at 15: 30 Enoxaparin Sodium (Lovenox) 30 mg DAILY SC Last administered on 05/17/17 11:56 ; Admin Dose 30 MG; Start 05/13/17 at 09:00 Famotidine 20 mg 20 mg Q24H PO Last administered on 05/16/17 21:49; Admin Dose 20 MG; Start 05/12/17 at 21:00 Ceftriaxone Sodium 50 ml @ 100 mls/hr Q24H IVPB Last administered on 14:05; Admin Dose 100 MLS/HR; Start 05/15/17 at 13:30 Fluconazole/ Sodium Chloride (Diflucan 100 Mg/ NS (Pmx)) 50 ml @ 50 mls/hr Q24H IVPB Last administered on 05/16/17 14:48; Admin Dose 50 MLS/HR; Start at 13:30 Lorazepam 0.5 mg 0.5 mg Q2H PRN IV AGITATION Last administered on 05/16/17 00: 03; Admin Dose 0.5 MG; Start 05/16/17 at 00:00 Vancomycin HCl (Vancocin) 250 ml @ 125 mls/hr Q36H IVPB Last administered on 05/17/17 02:37; Admin Dose 125 MLS/HR; Start 05/17/17 at 03:00 Divalproex Sodium (Depakote Er) 750 mg BID PO Last administered on 05/17/17 11 :48; Admin Dose 750 MG; Start 05/16/17 at 21:00 ANGI ZEPEDA NP May 17, 2017 13:51
[2017-05-17] MEDS: CEFTRIAXONE 1 GM/50 ML (PMX) 50 ML IVPB SCH (14:11)
--- NOTE | 2017-05-17 14:29 | CONS ---
Date/Time of Note Date/Time of Note DATE: 05/17/17 TIME: 14:28 Assessment/Plan Assessment/Plan Additional Assessment/Plan 1. acute on chronic renal failure due to ATN from sepsis and prerenal azotemia- Improving with IVF hydration 2. sepsis due to UTI 3. 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 HTN 5. HL 6. H/o CVA with residual left weakness Plan : IV abx ceftriaxone and Vancomycin, IV fluconazole, ID consulted, renally dose all abx Cr 2.44 , Na 146 today pt previously had a fulll CKD work up and his Renal US on last admission in 2016 showed Bilateral cortical thinning and increased echogenicity compatible with chronic medical renal disease. No evidence of hydronephrosis, nephrolithiasis or obstructive uropathy. continue Suprapubic Catheter care, will follow up Consultation Date/Type/Reason Admit Date/Time May 12, 2017 at 10:53 Initial Consult Date 05/12/17 Type of Consultation: NEPHROLOGY Referring Provider: VANESSA LOPES MD Exam/Review of Systems Vital Signs Vitals Vital Signs Date Time Temp Pulse Resp B/P Pulse Ox O2 Delivery O2 Flow Rate FiO2 05/17/17 14:01 98.3 60 18 103/61 96 05/17/17 08:00 Room Air Intake and Output 05/16/17 05/16/17 05/17/17 15:00 23:00 07:00 Intake Total 50 ml 290 ml 300 ml Output Total 600 ml 700 ml Balance 50 ml -310 ml -400 ml Exam Constitutional: alert, awake Respiratory: clear to auscultation, diminished breath sounds, normal air movement Cardiovascular: regular rate and rhythm Gastrointestinal: non-tender, soft Neurological: other (awake, alert, follows simple commands ) Results Result Diagram: 05/17/17 0510 05/17/17 0510 Results 24 hrs Laboratory Tests Test 05/17/17 05:10 White Blood Count 7.1 Red Blood Count 4.78 Hemoglobin 14.8 Hematocrit 44.7 Mean Corpuscular Volume 93.5 Mean Corpuscular Hemoglobin 31.0 Mean Corpuscular Hemoglobin Concent 33.1 Red Cell Distribution Width 13.8 Platelet Count 204 Mean Platelet Volume 10.9 H Neutrophils % 45.1 Lymphocytes % 38.1 Monocytes % 13.8 H Eosinophils % 1.4 Basophils % 1.3 Nucleated Red Blood Cells % 0.0 Neutrophils # 3.2 Lymphocytes # 2.7 Monocytes # 1.0 H Eosinophils # 0.1 Basophils # 0.1 Nucleated Red Blood Cells # 0.0 Sodium Level 146 H Potassium Level 3.6 Chloride Level 113 H Carbon Dioxide Level 21 Anion Gap 16 Blood Urea Nitrogen 32 H Creatinine 2.44 H Glucose Level 106 Calcium Level 9.3 Medications Medications Current Medications Quetiapine Fumarate (Seroquel) 100 mg BID PO Last administered on 05/17/17 11: 49; Admin Dose 100 MG; Start 05/12/17 at 21:00 Ascorbic Acid (Vitamin C) 500 mg DAILY PO Last administered on 05/17/17 11:48 ; Admin Dose 500 MG; Start 05/13/17 at 09:00 Amlodipine Besylate (Norvasc) 5 mg DAILY PO Last administered on 05/17/17 11: 49; Admin Dose 5 MG; Start 05/13/17 at 09:00 Atorvastatin Calcium (Lipitor) 10 mg QHS PO Last administered on 05/15/17 20: 09; Admin Dose 10 MG; Start 05/12/17 at 21:00 Donepezil HCl (Aricept) 10 mg DAILY PO Last administered on 05/17/17 11:49; Admin Dose 10 MG; Start 05/13/17 at 09:00 Metoprolol Tartrate (Lopressor) 100 mg BID GTB Last administered on 05/17/17 11:50; Admin Dose 100 MG; Start 05/12/17 at 21:00 Hydralazine HCl (Apresoline) 10 mg Q4H PRN IV SBP>170 Last administered on 05/16 17:28; Admin Dose 10 MG; Start 05/12/17 at 15:30 Ondansetron HCl (Zofran Inj) 4 mg Q6H PRN IV NAUSEA AND/OR VOMITING; Start 05/12/17 at 15:30 Acetaminophen (Tylenol Tab) 650 mg Q6H PRN PO PAIN LEVEL 1-3 OR FEVER Last administered on 05/14/17 11:18; Admin Dose 650 MG; Start 05/12/17 at 15:30 Docusate Sodium (Colace) 100 mg Q12H PRN PO CONSTIPATION; Start 05/12/17 at 15: 30 Enoxaparin Sodium (Lovenox) 30 mg DAILY SC Last administered on 05/17/17 11:56 ; Admin Dose 30 MG; Start 05/13/17 at 09:00 Famotidine 20 mg 20 mg Q24H PO Last administered on 05/16/17 21:49; Admin Dose 20 MG; Start 05/12/17 at 21:00 Ceftriaxone Sodium 50 ml @ 100 mls/hr Q24H IVPB Last administered on 14:11; Admin Dose 100 MLS/HR; Start 05/15/17 at 13:30 Fluconazole/ Sodium Chloride (Diflucan 100 Mg/ NS (Pmx)) 50 ml @ 50 mls/hr Q24H IVPB Last administered on 05/16/17 14:48; Admin Dose 50 MLS/HR; Start at 13:30 Lorazepam 0.5 mg 0.5 mg Q2H PRN IV AGITATION Last administered on 05/16/17 00: 03; Admin Dose 0.5 MG; Start 05/16/17 at 00:00 Vancomycin HCl (Vancocin) 250 ml @ 125 mls/hr Q36H IVPB Last administered on 05/17/17 02:37; Admin Dose 125 MLS/HR; Start 05/17/17 at 03:00 Divalproex Sodium (Depakote Er) 750 mg BID PO Last administered on 05/17/17 11 :48; Admin Dose 750 MG; Start 05/16/17 at 21:00 NI WATSON MD May 17, 2017 14:29
[2017-05-17] MEDS: FLUCONAZOLE 100 MG/NS (PMX) 50 ML IVPB SCH (14:44)
--- NOTE | 2017-05-17 16:54 | PN ---
Date/Time of Note Date/Time of Note DATE: 05/17/17 TIME: 16:53 Assessment/Plan Lines/Catheters IV C[facility]ter [facility]from [facility]): [facility] Urinary Cath still in place: Yes Assessment/Plan Assessment/Plan - Acute cystitis. Continue abx per ID. - Sepsis secondary to number 1, resolving. is following in Infectious Disease consultation. 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 Continue BUN and creatinine. Dr. Ramsey is following patient in Nephrology consultation. - Acute metabolic encephalopathy - Diabetes mellitus. - Hypertension. - Hyperlipidemia. - Chronic urinary retention with suprapubic catheter. - Gout. - History of an intracranial hemorrhage with history of ventriculoperitoneal shunt. Further recommendations based on clinical course. Plan of care discussed with Dr. Cartagena. Subjective 24 Hr Interval Summary Constitutional: requiring O2 Exam/Review of Systems Vital Signs Vitals Vital Signs Date Time Temp Pulse Resp B/P Pulse Ox O2 Delivery O2 Flow Rate FiO2 05/17/17 14:01 98.3 60 18 103/61 96 05/17/17 08:00 Room Air Intake and Output 05/16/17 05/16/17 05/17/17 14:59 22:59 06:59 Intake Total 50 ml 290 ml 300 ml Output Total 600 ml 700 ml Balance 50 ml -310 ml -400 ml Exam Respiratory: diminished breath sounds Cardiovascular: nl pulses Gastrointestinal: non-tender, soft Musculoskeletal: nl extremities to inspection Results Result Diagram: 05/17/17 0510 05/17/17 0510 Results 24 hrs Laboratory Tests Test 05/17/17 05:10 White Blood Count 7.1 Red Blood Count 4.78 Hemoglobin 14.8 Hematocrit 44.7 Mean Corpuscular Volume 93.5 Mean Corpuscular Hemoglobin 31.0 Mean Corpuscular Hemoglobin Concent 33.1 Red Cell Distribution Width 13.8 Platelet Count 204 Mean Platelet Volume 10.9 H Neutrophils % 45.1 Lymphocytes % 38.1 Monocytes % 13.8 H Eosinophils % 1.4 Basophils % 1.3 Nucleated Red Blood Cells % 0.0 Neutrophils # 3.2 Lymphocytes # 2.7 Monocytes # 1.0 H Eosinophils # 0.1 Basophils # 0.1 Nucleated Red Blood Cells # 0.0 Sodium Level 146 H Potassium Level 3.6 Chloride Level 113 H Carbon Dioxide Level 21 Anion Gap 16 Blood Urea Nitrogen 32 H Creatinine 2.44 H Glucose Level 106 Calcium Level 9.3 Medications Medications Current Medications Quetiapine Fumarate (Seroquel) 100 mg BID PO Last administered on 05/17/17 11: 49; Admin Dose 100 MG; Start 05/12/17 at 21:00 Ascorbic Acid (Vitamin C) 500 mg DAILY PO Last administered on 05/17/17 11:48 ; Admin Dose 500 MG; Start 05/13/17 at 09:00 Amlodipine Besylate (Norvasc) 5 mg DAILY PO Last administered on 05/17/17 11: 49; Admin Dose 5 MG; Start 05/13/17 at 09:00 Atorvastatin Calcium (Lipitor) 10 mg QHS PO Last administered on 05/15/17 20: 09; Admin Dose 10 MG; Start 05/12/17 at 21:00 Donepezil HCl (Aricept) 10 mg DAILY PO Last administered on 05/17/17 11:49; Admin Dose 10 MG; Start 05/13/17 at 09:00 Metoprolol Tartrate (Lopressor) 100 mg BID GTB Last administered on 05/17/17 11:50; Admin Dose 100 MG; Start 05/12/17 at 21:00 Hydralazine HCl (Apresoline) 10 mg Q4H PRN IV SBP>170 Last administered on 05/16 17:28; Admin Dose 10 MG; Start 05/12/17 at 15:30 Ondansetron HCl (Zofran Inj) 4 mg Q6H PRN IV NAUSEA AND/OR VOMITING; Start 05/12/17 at 15:30 Acetaminophen (Tylenol Tab) 650 mg Q6H PRN PO PAIN LEVEL 1-3 OR FEVER Last administered on 05/14/17 11:18; Admin Dose 650 MG; Start 05/12/17 at 15:30 Docusate Sodium (Colace) 100 mg Q12H PRN PO CONSTIPATION; Start 05/12/17 at 15: 30 Enoxaparin Sodium (Lovenox) 30 mg DAILY SC Last administered on 05/17/17 11:56 ; Admin Dose 30 MG; Start 05/13/17 at 09:00 Famotidine 20 mg 20 mg Q24H PO Last administered on 05/16/17 21:49; Admin Dose 20 MG; Start 05/12/17 at 21:00 Ceftriaxone Sodium 50 ml @ 100 mls/hr Q24H IVPB Last administered on 14:11; Admin Dose 100 MLS/HR; Start 05/15/17 at 13:30 Fluconazole/ Sodium Chloride (Diflucan 100 Mg/ NS (Pmx)) 50 ml @ 50 mls/hr Q24H IVPB Last administered on 05/17/17 14:44; Admin Dose 50 MLS/HR; Start at 13:30 Lorazepam 0.5 mg 0.5 mg Q2H PRN IV AGITATION Last administered on 05/16/17 00: 03; Admin Dose 0.5 MG; Start 05/16/17 at 00:00 Vancomycin HCl (Vancocin) 250 ml @ 125 mls/hr Q36H IVPB Last administered on 05/17/17 02:37; Admin Dose 125 MLS/HR; Start 05/17/17 at 03:00 Divalproex Sodium (Depakote Er) 750 mg BID PO Last administered on 05/17/17 11 :48; Admin Dose 750 MG; Start 05/16/17 at 21:00 PANDA SKAGGS May 17, 2017 16:54
[2017-05-17] MEDS: FAMOTIDINE 20 MG TAB PO SCH (20:20)
[2017-05-17] MEDS: ATORVASTATIN 10 MG TAB PO SCH (20:20)
[2017-05-18 02:42] VITALS: BP 103/69; RESP 16
[2017-05-18 06:20] LABS: BASOPHIL # 0.1 10^3/ul (0.0-0.1); BASOPHILS % 1.4 % (0.0-2.0); EOSINOPHILS # 0.2 10^3/ul (0.0-0.5); EOSINOPHILS % 2.6 % (0.0-7.0); HEMATOCRIT 41.1 % (42.0-52.0); HEMOGLOBIN 13.5 g/dl (14.0-18.0); LYMPHOCYTES # 3.1 10^3/ul (0.8-2.9); LYMPHOCYTES % 44.4 % (15.0-51.0); MEAN CORPUSCULAR HEMOGLOBIN 30.9 pg (29.0-33.0); MEAN CORPUSCULAR HGB CONC 32.8 g/dl (32.0-37.0); MEAN CORPUSCULAR VOLUME 94.1 fl (82.0-101.0); MONOCYTE # 0.8 10^3/ul (0.3-0.9); NEUTROPHIL # 2.7 10^3/ul (1.6-7.5); NEUTROPHILS % 39.3 % (39.0-77.0); PLATELET COUNT 200 10^3/UL (140-415); RED BLOOD COUNT 4.37 10^6/ul (4.70-6.10); RED CELL DISTRIBUTION WIDTH 13.6 % (11.5-14.5); WHITE BLOOD COUNT 6.9 10^3/ul (4.8-10.8)
[2017-05-18 06:57] LABS: CALCIUM 8.7 mg/dl (8.4-10.2); CREATININE 2.34 mg/dl (0.61-1.24); POTASSIUM 3.7 mmol/L (3.5-5.1)
[2017-05-18 07:37] VITALS: BP 158/93; RESP 16
[2017-05-18] MEDS: ASCORBIC ACID 500 MG TAB PO SCH (11:00)
[2017-05-18] MEDS: DIVALPROEX (ER) 250 MG TAB PO SCH ×2 (11:00→20:02)
[2017-05-18] MEDS: QUETIAPINE 100 MG TAB PO SCH ×2 (11:00→20:02)
[2017-05-18] MEDS: DONEPEZIL 10 MG TAB PO SCH (11:00)
[2017-05-18] MEDS: AMLODIPINE 5 MG TAB PO SCH (11:01)
[2017-05-18] MEDS: METOPROLOL 100 MG TAB GTB SCH ×2 (11:01→20:04)
[2017-05-18] MEDS: ENOXAPARIN 30 MG/0.3 ML SYG SC SCH (11:06)
--- NOTE | 2017-05-18 12:12 | CONS ---
Date/Time of Note Date/Time of Note DATE: 05/18/17 TIME: 12:10 Assessment/Plan Assessment/Plan Additional Assessment/Plan 1. acute on chronic renal failure due to ATN from sepsis and prerenal azotemia- Improving with IVF hydration 2. sepsis due to UTI 3. 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 HTN 5. HL 6. H/o CVA with residual left weakness Plan : IV abx ceftriaxone and Vancomycin, IV fluconazole, ID consulted, renally dose all abx Cr 2.34 , other electrolytes normal today pt previously had a fulll CKD work up and his Renal US on last admission in 2016 showed Bilateral cortical thinning and increased echogenicity compatible with chronic medical renal disease. No evidence of hydronephrosis, nephrolithiasis or obstructive uropathy. continue Suprapubic Catheter care, will follow up Consultation Date/Type/Reason Admit Date/Time May 12, 2017 at 10:53 Initial Consult Date 05/12/17 Type of Consultation: NEPHROLOGY Referring Provider: VANESSA LOPES MD 24 HR Interval Summary Free Text/Dictation Cr 2.34, electrolytes stable, no acute events overnight BP stable Exam/Review of Systems Vital Signs Vitals Vital Signs Date Time Temp Pulse Resp B/P Pulse Ox O2 Delivery O2 Flow Rate FiO2 05/18/17 07:37 97.7 63 16 158/93 96 05/17/17 08:00 Room Air Intake and Output 05/17/17 05/17/17 05/18/17 15:00 23:00 07:00 Intake Total 50 ml 450 ml 640 ml Output Total 720 ml 450 ml Balance 50 ml -270 ml 190 ml Exam Constitutional: alert, awake Respiratory: clear to auscultation, diminished breath sounds, normal air movement Cardiovascular: regular rate and rhythm Gastrointestinal: non-tender, soft Neurological: other (awake, alert, follows simple commands ) Results Result Diagram: 05/18/1722 05/18/1722 Results 24 hrs Laboratory Tests Test 05/18/17 05:22 White Blood Count 6.9 Red Blood Count 4.37 L Hemoglobin 13.5 L Hematocrit 41.1 L Mean Corpuscular Volume 94.1 Mean Corpuscular Hemoglobin 30.9 Mean Corpuscular Hemoglobin Concent 32.8 Red Cell Distribution Width 13.6 Platelet Count 200 Mean Platelet Volume 11.0 H Neutrophils % 39.3 Lymphocytes % 44.4 Monocytes % 12.0 H Eosinophils % 2.6 Basophils % 1.4 Nucleated Red Blood Cells % 0.0 Neutrophils # 2.7 Lymphocytes # 3.1 H Monocytes # 0.8 Eosinophils # 0.2 Basophils # 0.1 Nucleated Red Blood Cells # 0.0 Sodium Level 142 Potassium Level 3.7 Chloride Level 110 Carbon Dioxide Level 23 Anion Gap 13 Blood Urea Nitrogen 34 H Creatinine 2.34 H Glucose Level 85 Calcium Level 8.7 Medications Medications Current Medications Quetiapine Fumarate (Seroquel) 100 mg BID PO Last administered on 05/18/17 11: 00; Admin Dose 100 MG; Start 05/12/17 at 21:00 Ascorbic Acid (Vitamin C) 500 mg DAILY PO Last administered on 05/18/17 11:00 ; Admin Dose 500 MG; Start 05/13/17 at 09:00 Amlodipine Besylate (Norvasc) 5 mg DAILY PO Last administered on 05/18/17 11: 01; Admin Dose 5 MG; Start 05/13/17 at 09:00 Atorvastatin Calcium (Lipitor) 10 mg QHS PO Last administered on 05/17/17 20: 20; Admin Dose 10 MG; Start 05/12/17 at 21:00 Donepezil HCl (Aricept) 10 mg DAILY PO Last administered on 05/18/17 11:00; Admin Dose 10 MG; Start 05/13/17 at 09:00 Metoprolol Tartrate (Lopressor) 100 mg BID GTB Last administered on 05/18/17 11:01; Admin Dose 100 MG; Start 05/12/17 at 21:00 Hydralazine HCl (Apresoline) 10 mg Q4H PRN IV SBP>170 Last administered on 05/16 17:28; Admin Dose 10 MG; Start 05/12/17 at 15:30 Ondansetron HCl (Zofran Inj) 4 mg Q6H PRN IV NAUSEA AND/OR VOMITING; Start 05/12/17 at 15:30 Acetaminophen (Tylenol Tab) 650 mg Q6H PRN PO PAIN LEVEL 1-3 OR FEVER Last administered on 05/14/17 11:18; Admin Dose 650 MG; Start 05/12/17 at 15:30 Docusate Sodium (Colace) 100 mg Q12H PRN PO CONSTIPATION; Start 05/12/17 at 15: 30 Enoxaparin Sodium (Lovenox) 30 mg DAILY SC Last administered on 05/18/17 11:06 ; Admin Dose 30 MG; Start 05/13/17 at 09:00 Famotidine 20 mg 20 mg Q24H PO Last administered on 05/17/17 20:20; Admin Dose 20 MG; Start 05/12/17 at 21:00 Ceftriaxone Sodium 50 ml @ 100 mls/hr Q24H IVPB Last administered on 14:11; Admin Dose 100 MLS/HR; Start 05/15/17 at 13:30 Fluconazole/ Sodium Chloride (Diflucan 100 Mg/ NS (Pmx)) 50 ml @ 50 mls/hr Q24H IVPB Last administered on 05/17/17 14:44; Admin Dose 50 MLS/HR; Start at 13:30 Lorazepam 0.5 mg 0.5 mg Q2H PRN IV AGITATION Last administered on 05/16/17 00: 03; Admin Dose 0.5 MG; Start 05/16/17 at 00:00 Vancomycin HCl (Vancocin) 250 ml @ 125 mls/hr Q36H IVPB Last administered on 05/17/17 02:37; Admin Dose 125 MLS/HR; Start 05/17/17 at 03:00 Divalproex Sodium (Depakote Er) 750 mg BID PO Last administered on 05/18/17 11 :00; Admin Dose 750 MG; Start 05/16/17 at 21:00 NI WATSON MD May 18, 2017 12:12
[2017-05-18] MEDS: FLUCONAZOLE 100 MG/NS (PMX) 50 ML IVPB SCH (12:51)
[2017-05-18] MEDS: CEFTRIAXONE 1 GM/50 ML (PMX) 50 ML IVPB SCH (13:29)
--- NOTE | 2017-05-18 14:27 | CONS ---
Date/Time of Note Date/Time of Note DATE: 05/18/17 TIME: 14:26 Assessment/Plan Assessment/Plan Chief Complaint/Hosp Course Full note dictated [id number] Problems: Consultation Date/Type/Reason Admit Date/Time May 12, 2017 at 10:53 Initial Consult Date 05/12/17 Type of Consultation: ID Referring Provider: VANESSA LOPES MD Exam/Review of Systems Vital Signs Vitals Vital Signs Date Time Temp Pulse Resp B/P Pulse Ox O2 Delivery O2 Flow Rate FiO2 05/18/17 07:37 97.7 63 16 158/93 96 05/17/17 08:00 Room Air Intake and Output 05/17/17 05/17/17 05/18/17 15:00 23:00 07:00 Intake Total 50 ml 450 ml 640 ml Output Total 720 ml 450 ml Balance 50 ml -270 ml 190 ml Results Result Diagram: 05/18/1722 05/18/17 0522 Results 24 hrs Laboratory Tests Test 05/18/17 05:22 White Blood Count 6.9 Red Blood Count 4.37 L Hemoglobin 13.5 L Hematocrit 41.1 L Mean Corpuscular Volume 94.1 Mean Corpuscular Hemoglobin 30.9 Mean Corpuscular Hemoglobin Concent 32.8 Red Cell Distribution Width 13.6 Platelet Count 200 Mean Platelet Volume 11.0 H Neutrophils % 39.3 Lymphocytes % 44.4 Monocytes % 12.0 H Eosinophils % 2.6 Basophils % 1.4 Nucleated Red Blood Cells % 0.0 Neutrophils # 2.7 Lymphocytes # 3.1 H Monocytes # 0.8 Eosinophils # 0.2 Basophils # 0.1 Nucleated Red Blood Cells # 0.0 Sodium Level 142 Potassium Level 3.7 Chloride Level 110 Carbon Dioxide Level 23 Anion Gap 13 Blood Urea Nitrogen 34 H Creatinine 2.34 H Glucose Level 85 Calcium Level 8.7 Medications Medications Current Medications Quetiapine Fumarate (Seroquel) 100 mg BID PO Last administered on 05/18/17 11: 00; Admin Dose 100 MG; Start 05/12/17 at 21:00 Ascorbic Acid (Vitamin C) 500 mg DAILY PO Last administered on 05/18/17 11:00 ; Admin Dose 500 MG; Start 05/13/17 at 09:00 Amlodipine Besylate (Norvasc) 5 mg DAILY PO Last administered on 05/18/17 11: 01; Admin Dose 5 MG; Start 05/13/17 at 09:00 Atorvastatin Calcium (Lipitor) 10 mg QHS PO Last administered on 05/17/17 20: 20; Admin Dose 10 MG; Start 05/12/17 at 21:00 Donepezil HCl (Aricept) 10 mg DAILY PO Last administered on 05/18/17 11:00; Admin Dose 10 MG; Start 05/13/17 at 09:00 Metoprolol Tartrate (Lopressor) 100 mg BID GTB Last administered on 05/18/17 11:01; Admin Dose 100 MG; Start 05/12/17 at 21:00 Hydralazine HCl (Apresoline) 10 mg Q4H PRN IV SBP>170 Last administered on 05/16 17:28; Admin Dose 10 MG; Start 05/12/17 at 15:30 Ondansetron HCl (Zofran Inj) 4 mg Q6H PRN IV NAUSEA AND/OR VOMITING; Start 05/12/17 at 15:30 Acetaminophen (Tylenol Tab) 650 mg Q6H PRN PO PAIN LEVEL 1-3 OR FEVER Last administered on 05/14/17 11:18; Admin Dose 650 MG; Start 05/12/17 at 15:30 Docusate Sodium (Colace) 100 mg Q12H PRN PO CONSTIPATION; Start 05/12/17 at 15: 30 Enoxaparin Sodium (Lovenox) 30 mg DAILY SC Last administered on 05/18/17 11:06 ; Admin Dose 30 MG; Start 05/13/17 at 09:00 Famotidine 20 mg 20 mg Q24H PO Last administered on 05/17/17 20:20; Admin Dose 20 MG; Start 05/12/17 at 21:00 Ceftriaxone Sodium 50 ml @ 100 mls/hr Q24H IVPB Last administered on 13:29; Admin Dose 100 MLS/HR; Start 05/15/17 at 13:30 Fluconazole/ Sodium Chloride (Diflucan 100 Mg/ NS (Pmx)) 50 ml @ 50 mls/hr Q24H IVPB Last administered on 05/18/17 12:51; Admin Dose 50 MLS/HR; Start at 13:30 Lorazepam 0.5 mg 0.5 mg Q2H PRN IV AGITATION Last administered on 05/16/17 00: 03; Admin Dose 0.5 MG; Start 05/16/17 at 00:00 Vancomycin HCl (Vancocin) 250 ml @ 125 mls/hr Q36H IVPB Last administered on 05/17/17 02:37; Admin Dose 125 MLS/HR; Start 05/17/17 at 03:00 Divalproex Sodium (Depakote Er) 750 mg BID PO Last administered on 05/18/17 11 :00; Admin Dose 750 MG; Start 05/16/17 at 21:00 ANGI ZEPEDA NP May 18, 2017 14:27
--- NOTE | 2017-05-18 15:25 | PN ---
Date/Time of Note Date/Time of Note DATE: 05/18/17 TIME: 15:22 Assessment/Plan VTE Prophylaxis VTE Prophylaxis Intervention: other Lines/Catheters IV Catheter Type (from [facility]): Saline Lock Urinary Cath still in place: Yes Assessment/Plan Assessment/Plan -Possible healthcare acquired pneumonia -Left sided parotitis, Dr. Carmichael evaluated pt in ENT consultation -Sepsis secondary to above, resolving. Dr. Garcia is following in infection disease consultation. Continue antibiotics per ID. -Hypernatremia, continue IV fluids per nephrology. Braulio is following in nephrology consultation. -Hypokalemia, replace potassium, check magnesium, continue to monitor electrolytes -Renal insufficiency -Anemia, status post blood transfusion, stool for OB negative -Sinus bradycardia, normal ejection fraction per 2D echo -Poor oral intake, optimize nutrition, MVI Further recommendations based on clinical course. Plan of care discussed with Dr. Cartagena. Subjective 24 Hr Interval Summary Free Text/Dictation afebrile, tolerates diet, Vss. Family at bed side- all Qs answered. no new events reported overnight Respiratory: no complaints Cardiovascular: no complaints Gastrointestinal: no complaints Genitourinary: no complaints Musculoskeletal: no complaints Exam/Review of Systems Vital Signs Vitals Vital Signs Date Time Temp Pulse Resp B/P Pulse Ox O2 Delivery O2 Flow Rate FiO2 05/18/17 07:37 97.7 63 16 158/93 96 05/17/17 08:00 Room Air Intake and Output 05/17/17 05/17/17 05/18/17 15:00 23:00 07:00 Intake Total 50 ml 450 ml 640 ml Output Total 720 ml 450 ml Balance 50 ml -270 ml 190 ml Exam Constitutional: alert, oriented (to name only.), well developed Respiratory: clear to auscultation, diminished breath sounds Cardiovascular: nl pulses, regular rate and rhythm Gastrointestinal: soft Musculoskeletal: nl extremities to inspection Extremities: normal pulses Neurological: nl speech Results Result Diagram: 05/18/1752105/18/17521 Results 24 hrs Laboratory Tests Test 05/18/17 05:22 White Blood Count 6.9 Red Blood Count 4.37 L Hemoglobin 13.5 L Hematocrit 41.1 L Mean Corpuscular Volume 94.1 Mean Corpuscular Hemoglobin 30.9 Mean Corpuscular Hemoglobin Concent 32.8 Red Cell Distribution Width 13.6 Platelet Count 200 Mean Platelet Volume 11.0 H Neutrophils % 39.3 Lymphocytes % 44.4 Monocytes % 12.0 H Eosinophils % 2.6 Basophils % 1.4 Nucleated Red Blood Cells % 0.0 Neutrophils # 2.7 Lymphocytes # 3.1 H Monocytes # 0.8 Eosinophils # 0.2 Basophils # 0.1 Nucleated Red Blood Cells # 0.0 Sodium Level 142 Potassium Level 3.7 Chloride Level 110 Carbon Dioxide Level 23 Anion Gap 13 Blood Urea Nitrogen 34 H Creatinine 2.34 H Glucose Level 85 Calcium Level 8.7 Medications Medications Current Medications Quetiapine Fumarate (Seroquel) 100 mg BID PO Last administered on 05/18/17 11: 00; Admin Dose 100 MG; Start 05/12/17 at 21:00 Ascorbic Acid (Vitamin C) 500 mg DAILY PO Last administered on 05/18/17 11:00 ; Admin Dose 500 MG; Start 05/13/17 at 09:00 Amlodipine Besylate (Norvasc) 5 mg DAILY PO Last administered on 05/18/17 11: 01; Admin Dose 5 MG; Start 05/13/17 at 09:00 Atorvastatin Calcium (Lipitor) 10 mg QHS PO Last administered on 05/17/17 20: 20; Admin Dose 10 MG; Start 05/12/17 at 21:00 Donepezil HCl (Aricept) 10 mg DAILY PO Last administered on 05/18/17 11:00; Admin Dose 10 MG; Start 05/13/17 at 09:00 Metoprolol Tartrate (Lopressor) 100 mg BID GTB Last administered on 05/18/17 11:01; Admin Dose 100 MG; Start 05/12/17 at 21:00 Hydralazine HCl (Apresoline) 10 mg Q4H PRN IV SBP>170 Last administered on 05/16 17:28; Admin Dose 10 MG; Start 05/12/17 at 15:30 Ondansetron HCl (Zofran Inj) 4 mg Q6H PRN IV NAUSEA AND/OR VOMITING; Start 05/12/17 at 15:30 Acetaminophen (Tylenol Tab) 650 mg Q6H PRN PO PAIN LEVEL 1-3 OR FEVER Last administered on 05/14/17 11:18; Admin Dose 650 MG; Start 05/12/17 at 15:30 Docusate Sodium (Colace) 100 mg Q12H PRN PO CONSTIPATION; Start 05/12/17 at 15: 30 Enoxaparin Sodium (Lovenox) 30 mg DAILY SC Last administered on 05/18/17 11:06 ; Admin Dose 30 MG; Start 05/13/17 at 09:00 Famotidine 20 mg 20 mg Q24H PO Last administered on 05/17/17 20:20; Admin Dose 20 MG; Start 05/12/17 at 21:00 Ceftriaxone Sodium 50 ml @ 100 mls/hr Q24H IVPB Last administered on 13:29; Admin Dose 100 MLS/HR; Start 05/15/17 at 13:30 Fluconazole/ Sodium Chloride (Diflucan 100 Mg/ NS (Pmx)) 50 ml @ 50 mls/hr Q24H IVPB Last administered on 05/18/17 12:51; Admin Dose 50 MLS/HR; Start at 13:30 Lorazepam 0.5 mg 0.5 mg Q2H PRN IV AGITATION Last administered on 05/16/17 00: 03; Admin Dose 0.5 MG; Start 05/16/17 at 00:00 Vancomycin HCl (Vancocin) 250 ml @ 125 mls/hr Q36H IVPB Last administered on 05/17/17 02:37; Admin Dose 125 MLS/HR; Start 05/17/17 at 03:00 Divalproex Sodium (Depakote Er) 750 mg BID PO Last administered on 05/18/17 11 :00; Admin Dose 750 MG; Start 05/16/17 at 21:00 PANDA SKAGGS May 18, 2017 15:25
[2017-05-18] MEDS: VANCOMYCIN 1 GM in NS 250 ML IVPB SCH (15:55)
[2017-05-18 19:49] VITALS: BP 171/96; RESP 16
[2017-05-18] MEDS: ATORVASTATIN 10 MG TAB PO SCH (20:02)
[2017-05-18] MEDS: FAMOTIDINE 20 MG TAB PO SCH (20:05)
[2017-05-19] VITALS (7 sets, daily range): BP systolic 126–193; BP diastolic 67–101; PULSE 72–80; RESP 16–20
[2017-05-19] MEDS: AMLODIPINE 5 MG TAB PO SCH (08:59)
[2017-05-19] MEDS: ASCORBIC ACID 500 MG TAB PO SCH (08:59)
[2017-05-19] MEDS: DONEPEZIL 10 MG TAB PO SCH (08:59)
[2017-05-19] MEDS: QUETIAPINE 100 MG TAB PO SCH ×2 (09:00→20:56)
[2017-05-19] MEDS: METOPROLOL 100 MG TAB GTB SCH ×2 (09:00→20:56)
[2017-05-19] MEDS: DIVALPROEX (ER) 250 MG TAB PO SCH ×2 (09:00→20:56)
[2017-05-19] MEDS: ENOXAPARIN 30 MG/0.3 ML SYG SC SCH (09:01)
--- NOTE | 2017-05-19 09:25 | CONS ---
Date/Time of Note Date/Time of Note DATE: 05/19/17 TIME: 09:22 Assessment/Plan Assessment/Plan Additional Assessment/Plan 1. acute on chronic renal failure due to ATN from sepsis and prerenal azotemia- Improving with IVF hydration 2. sepsis due to UTI - Urien cx grew E/coli,. Enterococcus, MRSA and filipe 3. 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 HTN 5. HL 6. H/o CVA with residual left weakness Plan : IV abx ceftriaxone and Vancomycin, IV fluconazole, ID consulted, Urien cx grew E /coli,. Enterococcus, MRSA and filipe ]renally dose all abx Cr 2.34 yesterday, no labs today to review yet pt previously had a fulll CKD work up and his Renal US on last admission in 2016 showed Bilateral cortical thinning and increased echogenicity compatible with chronic medical renal disease. No evidence of hydronephrosis, nephrolithiasis or obstructive uropathy. I called pt daughter Shabana Field on [phone] and left a message to call me back about update regarding pt kidney status continue Suprapubic Catheter care, will follow up Consultation Date/Type/Reason Admit Date/Time May 12, 2017 at 10:53 Initial Consult Date 05/12/17 Type of Consultation: ID Referring Provider: VANESSA LOPES MD Exam/Review of Systems Vital Signs Vitals Vital Signs Date Time Temp Pulse Resp B/P Pulse Ox O2 Delivery O2 Flow Rate FiO2 05/19/17 08:02 97.7 72 18 193/99 95 05/17/17 08:00 Room Air Intake and Output 05/18/17 05/18/17 05/19/17 14:59 22:59 06:59 Intake Total 100 ml 850 ml 500 ml Output Total 900 ml 800 ml Balance 100 ml -50 ml -300 ml Exam Constitutional: alert Psych: no complaints Neck: non-tender, supple Respiratory: clear to auscultation, diminished breath sounds, normal air movement Cardiovascular: nl pulses, regular rate and rhythm Gastrointestinal: non-tender, soft Musculoskeletal: muscle tone, muscle weakness, nl extremities to inspection, nl gait and stance, spine non-tender Neurological: [employer] II-XII intact, nl mental status, nl speech, nl strength Results Result Diagram: 05/18/1752105/18/17521 Medications Medications Current Medications Quetiapine Fumarate (Seroquel) 100 mg BID PO Last administered on 05/19/17 09: 00; Admin Dose 100 MG; Start 05/12/17 at 21:00 Ascorbic Acid (Vitamin C) 500 mg DAILY PO Last administered on 05/19/17 08:59 ; Admin Dose 500 MG; Start 05/13/17 at 09:00 Amlodipine Besylate (Norvasc) 5 mg DAILY PO Last administered on 05/19/17 08: 59; Admin Dose 5 MG; Start 05/13/17 at 09:00 Atorvastatin Calcium (Lipitor) 10 mg QHS PO Last administered on 05/18/17 20: 02; Admin Dose 10 MG; Start 05/12/17 at 21:00 Donepezil HCl (Aricept) 10 mg DAILY PO Last administered on 05/19/17 08:59; Admin Dose 10 MG; Start 05/13/17 at 09:00 Metoprolol Tartrate (Lopressor) 100 mg BID GTB Last administered on 05/19/17 09:00; Admin Dose 100 MG; Start 05/12/17 at 21:00 Hydralazine HCl (Apresoline) 10 mg Q4H PRN IV SBP>170 Last administered on 05/16 17:28; Admin Dose 10 MG; Start 05/12/17 at 15:30 Ondansetron HCl (Zofran Inj) 4 mg Q6H PRN IV NAUSEA AND/OR VOMITING; Start 05/12/17 at 15:30 Acetaminophen (Tylenol Tab) 650 mg Q6H PRN PO PAIN LEVEL 1-3 OR FEVER Last administered on 05/14/17 11:18; Admin Dose 650 MG; Start 05/12/17 at 15:30 Docusate Sodium (Colace) 100 mg Q12H PRN PO CONSTIPATION; Start 05/12/17 at 15: 30 Enoxaparin Sodium (Lovenox) 30 mg DAILY SC Last administered on 05/19/17 09:01 ; Admin Dose 30 MG; Start 05/13/17 at 09:00 Famotidine 20 mg 20 mg Q24H PO Last administered on 05/18/17 20:05; Admin Dose 20 MG; Start 05/12/17 at 21:00 Ceftriaxone Sodium 50 ml @ 100 mls/hr Q24H IVPB Last administered on 13:29; Admin Dose 100 MLS/HR; Start 05/15/17 at 13:30 Fluconazole/ Sodium Chloride (Diflucan 100 Mg/ NS (Pmx)) 50 ml @ 50 mls/hr Q24H IVPB Last administered on 05/18/17 12:51; Admin Dose 50 MLS/HR; Start at 13:30 Lorazepam 0.5 mg 0.5 mg Q2H PRN IV AGITATION Last administered on 05/16/17 00: 03; Admin Dose 0.5 MG; Start 05/16/17 at 00:00 Vancomycin HCl (Vancocin) 250 ml @ 125 mls/hr Q36H IVPB Last administered on 05/18/17 15:55; Admin Dose 125 MLS/HR; Start 05/17/17 at 03:00 Divalproex Sodium (Depakote Er) 750 mg BID PO Last administered on 05/19/17 09 :00; Admin Dose 750 MG; Start 05/16/17 at 21:00 NI WATSON MD May 19, 2017 09:25
[2017-05-19] MEDS: hydrALAzine 20 MG INJ IV PRN ×3 (11:13→18:38)
[2017-05-19] MEDS: CEFTRIAXONE 1 GM/50 ML (PMX) 50 ML IVPB SCH (13:52)
--- NOTE | 2017-05-19 14:09 | PN ---
DATE: 05/18/2017 INFECTIOUS DISEASE PROGRESS NOTE SUBJECTIVE: No acute events overnight. Patient is awake, still confused but compliant and in no di stress. Denies pain. Temperature 97.7, pulse 63, respirations 16, blood pressure 158/93, saturatio n 96% on room air. WBC 6.9, no shift, no bands. BUN 34, creatinine 2.34. ANTIMICROBIALS: The patient is on: 1. IV vancomycin. 2. Rocephin. 3. Fluconazole. MICROBIOLOGY: Urine culture grew MRSA, enterococcus species, E. coli and Daniela albicans. INDWELLINGS: The patient has a suprapubic catheter. PHYSICAL EXAMINATION: GENERAL: This is a chronically ill-appearing, well-developed elderly man who is in no distress. HEENT: Head atraumatic, normocephalic. Sclerae anicteric. Buccal mucosa dry. NECK: Supple. CHEST: Rise symmetrical. Breath sounds diminished to bases. HEART: S1, S2. ABDOMEN: Soft, bowel tones present. EXTREMITIES: Without cyanosis. ASSESSMENT: 1. Acute encephalopathy, likely toxic metabolic. 2. History of cerebrovascular accident. 3. Multidrug resistant polymicrobial urinary tract infection. 4. Chronic suprapubic catheter. 5. Diabetes. 6. Chronic kidney disease. PLAN: The patient remains stable. Continue present care. Antibiotics. Dictated By: ANGI ZEPEDA [employer]OT [employer]AM[employer] MAN for DANIEL HAYES/GORGE Conf#: [id number] DID#: [id number]
[2017-05-19] MEDS: FLUCONAZOLE 100 MG/NS (PMX) 50 ML IVPB SCH (15:15)
--- NOTE | 2017-05-19 16:23 | PN ---
Date/Time of Note Date/Time of Note DATE: 05/19/17 TIME: 16:18 Assessment/Plan VTE Prophylaxis VTE Prophylaxis Intervention: SCD's Lines/Catheters IV Catheter Type (from [facility]): Saline Lock Urinary Cath still in place: Yes Reason Cath still needed: urinary retention Assessment/Plan Chief Complaint/Hosp Course Patient is awake alert remains calm, follows commands, continue to monitor renal function Assessment/Plan - Acute cystitis. Continue abx per ID. - Sepsis secondary to number 1, resolving. is following in Infectious Disease consultation. 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 Continue BUN and creatinine. Dr. Ramsey is following patient in Nephrology consultation. - Acute metabolic encephalopathy - Diabetes mellitus. - Hypertension. - Hyperlipidemia. - Chronic urinary retention with suprapubic catheter. - Gout. - History of an intracranial hemorrhage with history of ventriculoperitoneal shunt. Repeat CT with stable PLASTER TENDER shunt Further recommendations based on clinical course. Plan of care discussed with Dr. Cartagena. Problems: Exam/Review of Systems Vital Signs Vitals Vital Signs Date Time Temp Pulse Resp B/P Pulse Ox O2 Delivery O2 Flow Rate FiO2 05/19/17 14:13 98.3 72 18 190/98 97 05/17/17 08:00 Room Air Intake and Output 05/18/17 05/18/17 05/19/17 15:00 23:00 07:00 Intake Total 100 ml 850 ml 500 ml Output Total 900 ml 800 ml Balance 100 ml -50 ml -300 ml Exam Constitutional: alert, oriented Neck: supple Respiratory: normal air movement Cardiovascular: nl pulses Gastrointestinal: non-tender, soft Genitourinary - Male: other (Suprapubic catheter) Extremities: normal pulses Results Result Diagram: 05/18/1752105/18/17521 Medications Medications Current Medications Quetiapine Fumarate (Seroquel) 100 mg BID PO Last administered on 05/19/17 09: 00; Admin Dose 100 MG; Start 05/12/17 at 21:00 Ascorbic Acid (Vitamin C) 500 mg DAILY PO Last administered on 05/19/17 08:59 ; Admin Dose 500 MG; Start 05/13/17 at 09:00 Amlodipine Besylate (Norvasc) 5 mg DAILY PO Last administered on 05/19/17 08: 59; Admin Dose 5 MG; Start 05/13/17 at 09:00 Atorvastatin Calcium (Lipitor) 10 mg QHS PO Last administered on 05/18/17 20: 02; Admin Dose 10 MG; Start 05/12/17 at 21:00 Donepezil HCl (Aricept) 10 mg DAILY PO Last administered on 05/19/17 08:59; Admin Dose 10 MG; Start 05/13/17 at 09:00 Metoprolol Tartrate (Lopressor) 100 mg BID GTB Last administered on 05/19/17 09:00; Admin Dose 100 MG; Start 05/12/17 at 21:00 Hydralazine HCl (Apresoline) 10 mg Q4H PRN IV SBP>170 Last administered on 05/19 15:15; Admin Dose 10 MG; Start 05/12/17 at 15:30 Ondansetron HCl (Zofran Inj) 4 mg Q6H PRN IV NAUSEA AND/OR VOMITING; Start 05/12/17 at 15:30 Acetaminophen (Tylenol Tab) 650 mg Q6H PRN PO PAIN LEVEL 1-3 OR FEVER Last administered on 05/14/17 11:18; Admin Dose 650 MG; Start 05/12/17 at 15:30 Docusate Sodium (Colace) 100 mg Q12H PRN PO CONSTIPATION; Start 05/12/17 at 15: 30 Enoxaparin Sodium (Lovenox) 30 mg DAILY SC Last administered on 05/19/17 09:01 ; Admin Dose 30 MG; Start 05/13/17 at 09:00 Famotidine 20 mg 20 mg Q24H PO Last administered on 05/18/17 20:05; Admin Dose 20 MG; Start 05/12/17 at 21:00 Ceftriaxone Sodium 50 ml @ 100 mls/hr Q24H IVPB Last administered on 13:52; Admin Dose 100 MLS/HR; Start 05/15/17 at 13:30 Fluconazole/ Sodium Chloride (Diflucan 100 Mg/ NS (Pmx)) 50 ml @ 50 mls/hr Q24H IVPB Last administered on 05/19/17 15:15; Admin Dose 50 MLS/HR; Start at 13:30 Lorazepam 0.5 mg 0.5 mg Q2H PRN IV AGITATION Last administered on 05/16/17 00: 03; Admin Dose 0.5 MG; Start 05/16/17 at 00:00 Vancomycin HCl (Vancocin) 250 ml @ 125 mls/hr Q36H IVPB Last administered on 05/18/17 15:55; Admin Dose 125 MLS/HR; Start 05/17/17 at 03:00 Divalproex Sodium (Depakote Er) 750 mg BID PO Last administered on 05/19/17 09 :00; Admin Dose 750 MG; Start 05/16/17 at 21:00 Miscellaneous Information (*Rx Drug Level Order Reminder*) ONCE ONCE XX ; Start 05/20/17 at 02:00; Stop 05/20/17 at 02:01 MARIA ANTONIA GERMAN May 19, 2017 16:23
--- NOTE | 2017-05-19 16:33 | CONS ---
Date/Time of Note Date/Time of Note DATE: 05/19/17 TIME: 16:29 Consultation Date/Type/Reason Admit Date/Time May 12, 2017 at 10:53 Initial Consult Date SUBJECTIVE: No acute events overnight. Patient is awake, alert. Denies pain, fever. VS: 190/98 P: 72 R:18 SO2: 97% T:98.3 LABS: reviewed. none for today. ANTIMICROBIALS: The patient is on: 1. IV vancomycin. 2. Rocephin. 3. Fluconazole. MICROBIOLOGY: Urine culture grew MRSA, enterococcus species, E. coli and Daniela albicans. INDWELLINGS: The patient has a suprapubic catheter. PHYSICAL EXAMINATION: GENERAL: This is a chronically ill-appearing, well-developed elderly man who is in no distress. HEENT: Head atraumatic, normocephalic. Sclerae anicteric. Buccal mucosa dry. NECK: Supple. CHEST: Rise symmetrical. Breath sounds diminished to bases. HEART: S1, S2. ABDOMEN: Soft, bowel tones present. EXTREMITIES: Without cyanosis. ASSESSMENT: 1. Acute encephalopathy, likely toxic metabolic. 2. History of cerebrovascular accident. 3. Multidrug resistant polymicrobial urinary tract infection. 4. Chronic suprapubic catheter. 5. Diabetes. 6. Chronic kidney disease. PLAN: The patient remains stable. Continue present care. Antibiotics. Monitor labs. Type of Consultation: ID Referring Provider: VANESSA LOPES MD Exam/Review of Systems Vital Signs Vitals Vital Signs Date Time Temp Pulse Resp B/P Pulse Ox O2 Delivery O2 Flow Rate FiO2 05/19/17 14:13 98.3 72 18 190/98 97 05/17/17 08:00 Room Air Intake and Output 05/18/17 05/18/17 05/19/17 15:00 23:00 07:00 Intake Total 100 ml 850 ml 500 ml Output Total 900 ml 800 ml Balance 100 ml -50 ml -300 ml Results Result Diagram: 05/18/17 0522 05/18/17 05 Medications Medications Current Medications Quetiapine Fumarate (Seroquel) 100 mg BID PO Last administered on 05/19/17 09: 00; Admin Dose 100 MG; Start 05/12/17 at 21:00 Ascorbic Acid (Vitamin C) 500 mg DAILY PO Last administered on 05/19/17 08:59 ; Admin Dose 500 MG; Start 05/13/17 at 09:00 Amlodipine Besylate (Norvasc) 5 mg DAILY PO Last administered on 05/19/17 08: 59; Admin Dose 5 MG; Start 05/13/17 at 09:00 Atorvastatin Calcium (Lipitor) 10 mg QHS PO Last administered on 05/18/17 20: 02; Admin Dose 10 MG; Start 05/12/17 at 21:00 Donepezil HCl (Aricept) 10 mg DAILY PO Last administered on 05/19/17 08:59; Admin Dose 10 MG; Start 05/13/17 at 09:00 Metoprolol Tartrate (Lopressor) 100 mg BID GTB Last administered on 05/19/17 09:00; Admin Dose 100 MG; Start 05/12/17 at 21:00 Hydralazine HCl (Apresoline) 10 mg Q4H PRN IV SBP>170 Last administered on 05/19 15:15; Admin Dose 10 MG; Start 05/12/17 at 15:30 Ondansetron HCl (Zofran Inj) 4 mg Q6H PRN IV NAUSEA AND/OR VOMITING; Start 05/12/17 at 15:30 Acetaminophen (Tylenol Tab) 650 mg Q6H PRN PO PAIN LEVEL 1-3 OR FEVER Last administered on 05/14/17 11:18; Admin Dose 650 MG; Start 05/12/17 at 15:30 Docusate Sodium (Colace) 100 mg Q12H PRN PO CONSTIPATION; Start 05/12/17 at 15: 30 Enoxaparin Sodium (Lovenox) 30 mg DAILY SC Last administered on 05/19/17 09:01 ; Admin Dose 30 MG; Start 05/13/17 at 09:00 Famotidine 20 mg 20 mg Q24H PO Last administered on 05/18/17 20:05; Admin Dose 20 MG; Start 05/12/17 at 21:00 Ceftriaxone Sodium 50 ml @ 100 mls/hr Q24H IVPB Last administered on 13:52; Admin Dose 100 MLS/HR; Start 05/15/17 at 13:30 Fluconazole/ Sodium Chloride (Diflucan 100 Mg/ NS (Pmx)) 50 ml @ 50 mls/hr Q24H IVPB Last administered on 05/19/17 15:15; Admin Dose 50 MLS/HR; Start at 13:30 Lorazepam 0.5 mg 0.5 mg Q2H PRN IV AGITATION Last administered on 05/16/17 00: 03; Admin Dose 0.5 MG; Start 05/16/17 at 00:00 Vancomycin HCl (Vancocin) 250 ml @ 125 mls/hr Q36H IVPB Last administered on 05/18/17 15:55; Admin Dose 125 MLS/HR; Start 05/17/17 at 03:00 Divalproex Sodium (Depakote Er) 750 mg BID PO Last administered on 05/19/17 09 :00; Admin Dose 750 MG; Start 05/16/17 at 21:00 Miscellaneous Information (*Rx Drug Level Order Reminder*) ONCE ONCE XX ; Start 05/20/17 at 02:00; Stop 05/20/17 at 02:01 JUDITH SMITH May 19, 2017 16:33
[2017-05-19] MEDS: FAMOTIDINE 20 MG TAB PO SCH (20:56)
[2017-05-19] MEDS: ATORVASTATIN 10 MG TAB PO SCH (20:56)
[2017-05-20 02:21] VITALS: BP 166/90; RESP 18
[2017-05-20] MEDS: VANCOMYCIN 1 GM in NS 250 ML IVPB SCH (03:27)
[2017-05-20 05:47] LABS: BASOPHIL # 0.1 10^3/ul (0.0-0.1); EOSINOPHILS # 0.2 10^3/ul (0.0-0.5); EOSINOPHILS % 2.3 % (0.0-7.0); HEMATOCRIT 41.4 % (42.0-52.0); HEMOGLOBIN 13.7 g/dl (14.0-18.0); LYMPHOCYTES # 2.8 10^3/ul (0.8-2.9); LYMPHOCYTES % 38.6 % (15.0-51.0); MEAN CORPUSCULAR HEMOGLOBIN 30.8 pg (29.0-33.0); MEAN CORPUSCULAR HGB CONC 33.1 g/dl (32.0-37.0); MEAN PLATELET VOLUME 10.2 fl (7.4-10.4); MONOCYTE # 0.8 10^3/ul (0.3-0.9); MONOCYTES % 10.2 % (0.0-11.0); NEUTROPHIL # 3.5 10^3/ul (1.6-7.5); NEUTROPHILS % 47.4 % (39.0-77.0); PLATELET COUNT 218 10^3/UL (140-415); RED BLOOD COUNT 4.45 10^6/ul (4.70-6.10); RED CELL DISTRIBUTION WIDTH 13.3 % (11.5-14.5); WHITE BLOOD COUNT 7.3 10^3/ul (4.8-10.8)
[2017-05-20 06:01] LABS: INR 0.91; PROTIME 12.2 Sec (12.2-14.2)
[2017-05-20 06:02] LABS: PARTIAL THROMBOPLASTIN TIME 33.7 Sec (25.0-35.0)
[2017-05-20 06:34] LABS: ALBUMIN 3.6 g/dl (3.3-4.9); ALBUMIN/GLOBULIN RATIO 1.05; BILIRUBIN,INDIRECT 0.1 mg/dl (0-1.1); BILIRUBIN,TOTAL 0.1 mg/dl (0.2-1.3); CALCIUM 8.8 mg/dl (8.4-10.2); CREATININE 2.23 mg/dl (0.61-1.24); MAGNESIUM 1.8 mg/dl (1.7-2.5); PHOSPHORUS 4.1 mg/dl (2.5-4.9); POTASSIUM 3.6 mmol/L (3.5-5.1)
[2017-05-20 07:28] VITALS: BP 173/95; RESP 18
[2017-05-20] MEDS: DONEPEZIL 10 MG TAB PO SCH (08:23)
[2017-05-20] MEDS: ASCORBIC ACID 500 MG TAB PO SCH (08:23)
[2017-05-20] MEDS: DIVALPROEX (ER) 250 MG TAB PO SCH ×2 (08:24→21:19)
[2017-05-20] MEDS: AMLODIPINE 5 MG TAB PO SCH (08:24)
[2017-05-20] MEDS: QUETIAPINE 100 MG TAB PO SCH ×2 (08:24→21:18)
[2017-05-20] MEDS: METOPROLOL 100 MG TAB GTB SCH ×2 (08:25→21:19)
[2017-05-20] MEDS: hydrALAzine 20 MG INJ IV PRN (08:25)
[2017-05-20] MEDS: ENOXAPARIN 30 MG/0.3 ML SYG SC SCH (08:30)
[2017-05-20 12:33] VITALS: BP 131/71; PULSE 71; RESP 18
[2017-05-20] MEDS: CEFTRIAXONE 1 GM/50 ML (PMX) 50 ML IVPB SCH (13:25)
--- NOTE | 2017-05-20 14:01 | CONS ---
Date/Time of Note Date/Time of Note DATE: 05/20/17 TIME: 13:59 Assessment/Plan Assessment/Plan Chief Complaint/Hosp Course SUBJECTIVE: No acute changes overnight. No fevers, awake, looks comfortable MICROBIOLOGY: Urine culture grew Daniela albicans and MRSA, enterococcus and E. coli. ANTIMICROBIALS: The patient is on vancomycin, Rocephin, fluconazole. INDWELLINGS: Suprapubic catheter. PHYSICAL EXAMINATION: GENERAL: This is a well-developed, fragile, elderly man who is in no distress. HEENT: Head atraumatic, normocephalic. Sclerae anicteric. Buccal mucosa dry. NECK: Supple. CHEST: Rise symmetrical. Breath sounds diminished to bases. HEART: S1, S2. ABDOMEN: Soft, bowel tones present. EXTREMITIES: No cyanosis. ASSESSMENT: 1. Multidrug resistant urinary tract infection. 2. Acute encephalopathy. 3. Chronic kidney disease. 4. Diabetes. 5. History of cerebrovascular accident. 6. Chronic suprapubic catheter. Plan: Stable, continue present care, anticipate dc on PO Cipro, Doxycycline and Diflucan to complete 10 days abx Problems: Consultation Date/Type/Reason Admit Date/Time May 12, 2017 at 10:53 Initial Consult Date 05/12/17 Type of Consultation: ID Referring Provider: VANESSA LOPES MD Exam/Review of Systems Vital Signs Vitals Vital Signs Date Time Temp Pulse Resp B/P Pulse Ox O2 Delivery O2 Flow Rate FiO2 05/20/17 12:33 71 18 131/71 05/20/17 07:28 98.2 98 05/17/17 08:00 Room Air Intake and Output 05/19/17 05/19/17 05/20/17 15:00 23:00 07:00 Intake Total 50 ml 1290 ml 650 ml Output Total 1000 ml 600 ml Balance 50 ml 290 ml 50 ml Results Result Diagram: 05/20/17 0528 05/20/17 0528 Results 24 hrs Laboratory Tests Test 05/20/17 02:05 05/20/17 05:28 Vancomycin Level Trough 15.8 White Blood Count 7.3 Red Blood Count 4.45 L Hemoglobin 13.7 L Hematocrit 41.4 L Mean Corpuscular Volume 93.0 Mean Corpuscular Hemoglobin 30.8 Mean Corpuscular Hemoglobin Concent 33.1 Red Cell Distribution Width 13.3 Platelet Count 218 Mean Platelet Volume 10.2 Neutrophils % 47.4 Lymphocytes % 38.6 Monocytes % 10.2 Eosinophils % 2.3 Basophils % 1.0 Nucleated Red Blood Cells % 0.0 Neutrophils # 3.5 Lymphocytes # 2.8 Monocytes # 0.8 Eosinophils # 0.2 Basophils # 0.1 Nucleated Red Blood Cells # 0.0 Prothrombin Time 12.2 Prothrombin Time Ratio 1.0 INR International Normalized Ratio 0.91 Activated Partial Thromboplast Time 33.7 Sodium Level 145 H Potassium Level 3.6 Chloride Level 113 H Carbon Dioxide Level 22 Anion Gap 14 Blood Urea Nitrogen 32 H Creatinine 2.23 H Glucose Level 95 Calcium Level 8.8 Phosphorus Level 4.1 Magnesium Level 1.8 Total Bilirubin 0.1 L Direct Bilirubin 0.00 Indirect Bilirubin 0.1 Aspartate Amino Transf (AST/SGOT) 17 Alanine Aminotransferase (ALT/SGPT) 32 Alkaline Phosphatase 68 Total Protein 7.0 Albumin 3.6 Globulin 3.40 H Albumin/Globulin Ratio 1.05 Medications Medications Current Medications Quetiapine Fumarate (Seroquel) 100 mg BID PO Last administered on 05/20/17 08 :24; Admin Dose 100 MG; Start 05/12/17 at 21:00 Ascorbic Acid (Vitamin C) 500 mg DAILY PO Last administered on 05/20/17 08:23 ; Admin Dose 500 MG; Start 05/13/17 at 09:00 Amlodipine Besylate (Norvasc) 5 mg DAILY PO Last administered on 05/20/17 08: 24; Admin Dose 5 MG; Start 05/13/17 at 09:00 Atorvastatin Calcium (Lipitor) 10 mg QHS PO Last administered on 05/19/17 20: 56; Admin Dose 10 MG; Start 05/12/17 at 21:00 Donepezil HCl (Aricept) 10 mg DAILY PO Last administered on 05/20/17 08:23; Admin Dose 10 MG; Start 05/13/17 at 09:00 Metoprolol Tartrate (Lopressor) 100 mg BID GTB Last administered on 05/20/17 08:25; Admin Dose 100 MG; Start 05/12/17 at 21:00 Hydralazine HCl (Apresoline) 10 mg Q4H PRN IV SBP>170 Last administered on 08:25; Admin Dose 10 MG; Start 05/12/17 at 15:30 Ondansetron HCl (Zofran Inj) 4 mg Q6H PRN IV NAUSEA AND/OR VOMITING; Start 05/12/17 at 15:30 Acetaminophen (Tylenol Tab) 650 mg Q6H PRN PO PAIN LEVEL 1-3 OR FEVER Last administered on 05/14/17 11:18; Admin Dose 650 MG; Start 05/12/17 at 15:30 Docusate Sodium (Colace) 100 mg Q12H PRN PO CONSTIPATION; Start 05/12/17 at 15: 30 Enoxaparin Sodium (Lovenox) 30 mg DAILY SC Last administered on 05/20/17 08: 30; Admin Dose 30 MG; Start 05/13/17 at 09:00 Famotidine 20 mg 20 mg Q24H PO Last administered on 05/19/17 20:56; Admin Dose 20 MG; Start 05/12/17 at 21:00 Ceftriaxone Sodium 50 ml @ 100 mls/hr Q24H IVPB Last administered on 13:25; Admin Dose 100 MLS/HR; Start 05/15/17 at 13:30 Fluconazole/ Sodium Chloride (Diflucan 100 Mg/ NS (Pmx)) 50 ml @ 50 mls/hr Q24H IVPB Last administered on 05/19/17 15:15; Admin Dose 50 MLS/HR; Start at 13:30 Lorazepam 0.5 mg 0.5 mg Q2H PRN IV AGITATION Last administered on 05/16/17 00: 03; Admin Dose 0.5 MG; Start 05/16/17 at 00:00 Vancomycin HCl (Vancocin) 250 ml @ 125 mls/hr Q36H IVPB Last administered on 05/20/17 03:27; Admin Dose 125 MLS/HR; Start 05/17/17 at 03:00 Divalproex Sodium (Depakote Er) 750 mg BID PO Last administered on 05/20/17 08:24; Admin Dose 750 MG; Start 05/16/17 at 21:00 Nifedipine (Procardia Xl) 30 mg QHS PO ; Start 05/20/17 at 21:00 ANGI ZEPEDA NP May 20, 2017 14:01
--- NOTE | 2017-05-20 14:09 | PN ---
Date/Time of Note Date/Time of Note DATE: 05/20/17 TIME: 14:04 Assessment/Plan VTE Prophylaxis VTE Prophylaxis Intervention: SCD's Lines/Catheters IV Catheter Type (from [facility]): Saline Lock Urinary Cath still in place: Yes Reason Cath still needed: urinary retention Assessment/Plan Chief Complaint/Hosp Course Patient is hypertensive, will increase Norvasc, started on Procardia by nephrology Assessment/Plan - Acute cystitis. Continue abx per ID. - Sepsis secondary to number 1, resolving. is following in Infectious Disease consultation. 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 Continue BUN and creatinine. Dr. Ramsey is following patient in Nephrology consultation. - Acute metabolic encephalopathy - Diabetes mellitus. - Hypertension. Continue Norvasc, Hydralazine, and Procardia. - Hyperlipidemia. - Chronic urinary retention with suprapubic catheter. - Gout. - History of an intracranial hemorrhage with history of ventriculoperitoneal shunt. 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 Plan of care discussed with Dr. Cartagena. Problems: Exam/Review of Systems Vital Signs Vitals Vital Signs Date Time Temp Pulse Resp B/P Pulse Ox O2 Delivery O2 Flow Rate FiO2 05/20/17 12:33 71 18 131/71 05/20/17 07:28 98.2 98 05/17/17 08:00 Room Air Intake and Output 05/19/17 05/19/17 05/20/17 15:00 23:00 07:00 Intake Total 50 ml 1290 ml 650 ml Output Total 1000 ml 600 ml Balance 50 ml 290 ml 50 ml Exam Constitutional: alert, oriented Neck: supple Respiratory: normal air movement Cardiovascular: nl pulses Gastrointestinal: non-tender, soft Genitourinary - Male: other (Suprapubic catheter) Extremities: normal pulses Results Result Diagram: 05/20/1752705/20/17527 Results 24 hrs Laboratory Tests Test 05/20/17 02:05 05/20/17 05:28 Vancomycin Level Trough 15.8 White Blood Count 7.3 Red Blood Count 4.45 L Hemoglobin 13.7 L Hematocrit 41.4 L Mean Corpuscular Volume 93.0 Mean Corpuscular Hemoglobin 30.8 Mean Corpuscular Hemoglobin Concent 33.1 Red Cell Distribution Width 13.3 Platelet Count 218 Mean Platelet Volume 10.2 Neutrophils % 47.4 Lymphocytes % 38.6 Monocytes % 10.2 Eosinophils % 2.3 Basophils % 1.0 Nucleated Red Blood Cells % 0.0 Neutrophils # 3.5 Lymphocytes # 2.8 Monocytes # 0.8 Eosinophils # 0.2 Basophils # 0.1 Nucleated Red Blood Cells # 0.0 Prothrombin Time 12.2 Prothrombin Time Ratio 1.0 INR International Normalized Ratio 0.91 Activated Partial Thromboplast Time 33.7 Sodium Level 145 H Potassium Level 3.6 Chloride Level 113 H Carbon Dioxide Level 22 Anion Gap 14 Blood Urea Nitrogen 32 H Creatinine 2.23 H Glucose Level 95 Calcium Level 8.8 Phosphorus Level 4.1 Magnesium Level 1.8 Total Bilirubin 0.1 L Direct Bilirubin 0.00 Indirect Bilirubin 0.1 Aspartate Amino Transf (AST/SGOT) 17 Alanine Aminotransferase (ALT/SGPT) 32 Alkaline Phosphatase 68 Total Protein 7.0 Albumin 3.6 Globulin 3.40 H Albumin/Globulin Ratio 1.05 Medications Medications Current Medications Quetiapine Fumarate (Seroquel) 100 mg BID PO Last administered on 05/20/17 08 :24; Admin Dose 100 MG; Start 05/12/17 at 21:00 Ascorbic Acid (Vitamin C) 500 mg DAILY PO Last administered on 05/20/17 08:23 ; Admin Dose 500 MG; Start 05/13/17 at 09:00 Amlodipine Besylate (Norvasc) 5 mg DAILY PO Last administered on 05/20/17 08: 24; Admin Dose 5 MG; Start 05/13/17 at 09:00 Atorvastatin Calcium (Lipitor) 10 mg QHS PO Last administered on 05/19/17 20: 56; Admin Dose 10 MG; Start 05/12/17 at 21:00 Donepezil HCl (Aricept) 10 mg DAILY PO Last administered on 05/20/17 08:23; Admin Dose 10 MG; Start 05/13/17 at 09:00 Metoprolol Tartrate (Lopressor) 100 mg BID GTB Last administered on 05/20/17 08:25; Admin Dose 100 MG; Start 05/12/17 at 21:00 Hydralazine HCl (Apresoline) 10 mg Q4H PRN IV SBP>170 Last administered on 08:25; Admin Dose 10 MG; Start 05/12/17 at 15:30 Ondansetron HCl (Zofran Inj) 4 mg Q6H PRN IV NAUSEA AND/OR VOMITING; Start 05/12/17 at 15:30 Acetaminophen (Tylenol Tab) 650 mg Q6H PRN PO PAIN LEVEL 1-3 OR FEVER Last administered on 05/14/17 11:18; Admin Dose 650 MG; Start 05/12/17 at 15:30 Docusate Sodium (Colace) 100 mg Q12H PRN PO CONSTIPATION; Start 05/12/17 at 15: 30 Enoxaparin Sodium (Lovenox) 30 mg DAILY SC Last administered on 05/20/17 08: 30; Admin Dose 30 MG; Start 05/13/17 at 09:00 Famotidine 20 mg 20 mg Q24H PO Last administered on 05/19/17 20:56; Admin Dose 20 MG; Start 05/12/17 at 21:00 Ceftriaxone Sodium 50 ml @ 100 mls/hr Q24H IVPB Last administered on 13:25; Admin Dose 100 MLS/HR; Start 05/15/17 at 13:30 Fluconazole/ Sodium Chloride (Diflucan 100 Mg/ NS (Pmx)) 50 ml @ 50 mls/hr Q24H IVPB Last administered on 05/19/17 15:15; Admin Dose 50 MLS/HR; Start at 13:30 Lorazepam 0.5 mg 0.5 mg Q2H PRN IV AGITATION Last administered on 05/16/17 00: 03; Admin Dose 0.5 MG; Start 05/16/17 at 00:00 Vancomycin HCl (Vancocin) 250 ml @ 125 mls/hr Q36H IVPB Last administered on 05/20/17 03:27; Admin Dose 125 MLS/HR; Start 05/17/17 at 03:00 Divalproex Sodium (Depakote Er) 750 mg BID PO Last administered on 05/20/17 08:24; Admin Dose 750 MG; Start 05/16/17 at 21:00 Nifedipine (Procardia Xl) 30 mg QHS PO ; Start 05/20/17 at 21:00 MARIA ANTONIA GERMAN May 20, 2017 14:09
[2017-05-20] MEDS: FLUCONAZOLE 100 MG/NS (PMX) 50 ML IVPB SCH (14:29)
[2017-05-20 14:36] VITALS: BP 133/74; RESP 18
--- NOTE | 2017-05-20 17:17 | CONS ---
Date/Time of Note Date/Time of Note DATE: 05/20/17 TIME: 17:15 Assessment/Plan Assessment/Plan Additional Assessment/Plan 1. acute on chronic renal failure due to ATN from sepsis and prerenal azotemia- Improving with IVF hydration 2. sepsis due to UTI - Urien cx grew E/coli,. Enterococcus, MRSA and filipe 3. 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 HTN 5. HL 6. H/o CVA with residual left weakness Plan : IV abx ceftriaxone and Vancomycin, IV fluconazole, ID consulted, Urien cx grew E /coli,. Enterococcus, MRSA and filipe ]renally dose all abx Cr 2.23 today - no indicatin for dialysis at this time, discussed with patient daughter at bedside yesterday pt previously had a fulll CKD work up and his Renal US on last admission in 2016 showed Bilateral cortical thinning and increased echogenicity compatible with chronic medical renal disease. No evidence of hydronephrosis, nephrolithiasis or obstructive uropathy. 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 high Exam/Review of Systems Vital Signs Vitals Vital Signs Date Time Temp Pulse Resp B/P Pulse Ox O2 Delivery O2 Flow Rate FiO2 05/20/17 14:36 97.7 74 18 133/74 98 05/17/17 08:00 Room Air Intake and Output 05/19/17 05/19/17 05/20/17 15:00 23:00 07:00 Intake Total 50 ml 1290 ml 650 ml Output Total 1000 ml 600 ml Balance 50 ml 290 ml 50 ml Exam Constitutional: alert Psych: no complaints Neck: non-tender, supple Respiratory: clear to auscultation, diminished breath sounds, normal air movement Cardiovascular: nl pulses, regular rate and rhythm Gastrointestinal: non-tender, soft Musculoskeletal: muscle tone, muscle weakness, nl extremities to inspection, nl gait and stance, spine non-tender Neurological: KENNEL AIDE II-XII intact, nl mental status, nl speech, nl strength Results Result Diagram: 05/20/1728 05/20/17527 Results 24 hrs Laboratory Tests Test 05/20/17 02:05 05/20/17 05:28 Vancomycin Level Trough 15.8 White Blood Count 7.3 Red Blood Count 4.45 L Hemoglobin 13.7 L Hematocrit 41.4 L Mean Corpuscular Volume 93.0 Mean Corpuscular Hemoglobin 30.8 Mean Corpuscular Hemoglobin Concent 33.1 Red Cell Distribution Width 13.3 Platelet Count 218 Mean Platelet Volume 10.2 Neutrophils % 47.4 Lymphocytes % 38.6 Monocytes % 10.2 Eosinophils % 2.3 Basophils % 1.0 Nucleated Red Blood Cells % 0.0 Neutrophils # 3.5 Lymphocytes # 2.8 Monocytes # 0.8 Eosinophils # 0.2 Basophils # 0.1 Nucleated Red Blood Cells # 0.0 Prothrombin Time 12.2 Prothrombin Time Ratio 1.0 INR International Normalized Ratio 0.91 Activated Partial Thromboplast Time 33.7 Sodium Level 145 H Potassium Level 3.6 Chloride Level 113 H Carbon Dioxide Level 22 Anion Gap 14 Blood Urea Nitrogen 32 H Creatinine 2.23 H Glucose Level 95 Calcium Level 8.8 Phosphorus Level 4.1 Magnesium Level 1.8 Total Bilirubin 0.1 L Direct Bilirubin 0.00 Indirect Bilirubin 0.1 Aspartate Amino Transf (AST/SGOT) 17 Alanine Aminotransferase (ALT/SGPT) 32 Alkaline Phosphatase 68 Total Protein 7.0 Albumin 3.6 Globulin 3.40 H Albumin/Globulin Ratio 1.05 Medications Medications Current Medications Quetiapine Fumarate (Seroquel) 100 mg BID PO Last administered on 05/20/17 08 :24; Admin Dose 100 MG; Start 05/12/17 at 21:00 Ascorbic Acid (Vitamin C) 500 mg DAILY PO Last administered on 05/20/17 08:23 ; Admin Dose 500 MG; Start 05/13/17 at 09:00 Atorvastatin Calcium (Lipitor) 10 mg QHS PO Last administered on 05/19/17 20: 56; Admin Dose 10 MG; Start 05/12/17 at 21:00 Donepezil HCl (Aricept) 10 mg DAILY PO Last administered on 05/20/17 08:23; Admin Dose 10 MG; Start 05/13/17 at 09:00 Metoprolol Tartrate (Lopressor) 100 mg BID GTB Last administered on 05/20/17 08:25; Admin Dose 100 MG; Start 05/12/17 at 21:00 Hydralazine HCl (Apresoline) 10 mg Q4H PRN IV SBP>170 Last administered on 08:25; Admin Dose 10 MG; Start 05/12/17 at 15:30 Ondansetron HCl (Zofran Inj) 4 mg Q6H PRN IV NAUSEA AND/OR VOMITING; Start 05/12/17 at 15:30 Acetaminophen (Tylenol Tab) 650 mg Q6H PRN PO PAIN LEVEL 1-3 OR FEVER Last administered on 05/14/17 11:18; Admin Dose 650 MG; Start 05/12/17 at 15:30 Docusate Sodium (Colace) 100 mg Q12H PRN PO CONSTIPATION; Start 05/12/17 at 15: 30 Enoxaparin Sodium (Lovenox) 30 mg DAILY SC Last administered on 05/20/17 08: 30; Admin Dose 30 MG; Start 05/13/17 at 09:00 Famotidine 20 mg 20 mg Q24H PO Last administered on 05/19/17 20:56; Admin Dose 20 MG; Start 05/12/17 at 21:00 Ceftriaxone Sodium 50 ml @ 100 mls/hr Q24H IVPB Last administered on 13:25; Admin Dose 100 MLS/HR; Start 05/15/17 at 13:30 Fluconazole/ Sodium Chloride (Diflucan 100 Mg/ NS (Pmx)) 50 ml @ 50 mls/hr Q24H IVPB Last administered on 05/20/17 14:29; Admin Dose 50 MLS/HR; Start at 13:30 Lorazepam 0.5 mg 0.5 mg Q2H PRN IV AGITATION Last administered on 05/16/17 00: 03; Admin Dose 0.5 MG; Start 05/16/17 at 00:00 Vancomycin HCl (Vancocin) 250 ml @ 125 mls/hr Q36H IVPB Last administered on 05/20/17 03:27; Admin Dose 125 MLS/HR; Start 05/17/17 at 03:00 Divalproex Sodium (Depakote Er) 750 mg BID PO Last administered on 05/20/17 08:24; Admin Dose 750 MG; Start 05/16/17 at 21:00 Nifedipine (Procardia Xl) 30 mg QHS PO ; Start 05/20/17 at 21:00 Amlodipine Besylate (Norvasc) 10 mg DAILY PO ; Start 05/21/17 at 09:00 NI WATSON MD May 20, 2017 17:17
[2017-05-20 20:00] VITALS: BP 132/76; RESP 18
[2017-05-20] MEDS: NIFEdipine (XL) 30 MG TAB PO SCH (21:18)
[2017-05-20] MEDS: FAMOTIDINE 20 MG TAB PO SCH (21:18)
[2017-05-20] MEDS: ATORVASTATIN 10 MG TAB PO SCH (21:18)
[2017-05-21 02:33] VITALS: BP 112/75; RESP 16
[2017-05-21 06:21] LABS: BASOPHIL # 0.1 10^3/ul (0.0-0.1); BASOPHILS % 1.3 % (0.0-2.0); EOSINOPHILS # 0.2 10^3/ul (0.0-0.5); EOSINOPHILS % 2.2 % (0.0-7.0); HEMATOCRIT 40.4 % (42.0-52.0); HEMOGLOBIN 13.5 g/dl (14.0-18.0); LYMPHOCYTES # 3.5 10^3/ul (0.8-2.9); LYMPHOCYTES % 52.2 % (15.0-51.0); MEAN CORPUSCULAR HEMOGLOBIN 31.2 pg (29.0-33.0); MEAN CORPUSCULAR HGB CONC 33.4 g/dl (32.0-37.0); MEAN CORPUSCULAR VOLUME 93.3 fl (82.0-101.0); MEAN PLATELET VOLUME 10.3 fl (7.4-10.4); MONOCYTE # 0.8 10^3/ul (0.3-0.9); MONOCYTES % 11.3 % (0.0-11.0); NEUTROPHIL # 2.2 10^3/ul (1.6-7.5); NEUTROPHILS % 32.6 % (39.0-77.0); PLATELET COUNT 220 10^3/UL (140-415); RED BLOOD COUNT 4.33 10^6/ul (4.70-6.10); RED CELL DISTRIBUTION WIDTH 13.3 % (11.5-14.5); WHITE BLOOD COUNT 6.7 10^3/ul (4.8-10.8)
[2017-05-21 07:05] LABS: CREATININE 2.12 mg/dl (0.61-1.24); POTASSIUM 3.9 mmol/L (3.5-5.1)
[2017-05-21 08:08] VITALS: BP 151/88; RESP 18
[2017-05-21] MEDS: QUETIAPINE 100 MG TAB PO SCH ×2 (08:44→21:19)
[2017-05-21] MEDS: DONEPEZIL 10 MG TAB PO SCH (08:45)
[2017-05-21] MEDS: METOPROLOL 100 MG TAB GTB SCH ×2 (08:45→21:19)
[2017-05-21] MEDS: AMLODIPINE 10 MG TAB PO SCH (08:45)
[2017-05-21] MEDS: DIVALPROEX (ER) 250 MG TAB PO SCH ×2 (08:46→21:19)
[2017-05-21] MEDS: ASCORBIC ACID 500 MG TAB PO SCH (08:46)
[2017-05-21] MEDS: ENOXAPARIN 30 MG/0.3 ML SYG SC SCH (08:52)
[2017-05-21] MEDS: FLUCONAZOLE 100 MG/NS (PMX) 50 ML IVPB SCH (13:30)
[2017-05-21 13:34] VITALS: BP 139/84; RESP 18
--- NOTE | 2017-05-21 13:56 | PN ---
Date/Time of Note Date/Time of Note DATE: 05/21/17 TIME: 13:52 Assessment/Plan VTE Prophylaxis VTE Prophylaxis Intervention: SCD's Lines/Catheters [facility] ([facility] Saline Lock Urinary Cath still in place: Yes Reason Cath still needed: urinary retention Assessment/Plan Chief Complaint/Hosp Course Better blood pressure control today, afebrile. Patient's condition and plan of care discussed with patient's daughter at the bedside. Assessment/Plan - Acute cystitis. Continue abx per ID. - Sepsis secondary to number 1, resolving. is following in Infectious Disease consultation. 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 Continue BUN and creatinine. Dr. Ramsey is following patient in Nephrology consultation. - Acute metabolic encephalopathy - Diabetes mellitus. - Hypertension. Continue Norvasc, Hydralazine, and Procardia. - Hyperlipidemia. - Chronic urinary retention with suprapubic catheter. - Gout. - History of an intracranial hemorrhage with history of ventriculoperitoneal shunt. 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 Plan of care discussed with Dr. Cartagena. Problems: Exam/Review of Systems Vital Signs Vitals Vital Signs Date Time Temp Pulse Resp B/P Pulse Ox O2 Delivery O2 Flow Rate FiO2 05/21/17 13:34 97.9 74 18 139/84 97 05/17/17 08:00 Room Air Intake and Output 05/20/17 05/20/17 05/21/17 15:00 23:00 07:00 Intake Total 1600 ml 480 ml Output Total 1000 ml 600 ml Balance 600 ml -120 ml Exam Constitutional: alert, oriented Neck: supple Respiratory: normal air movement Cardiovascular: nl pulses Gastrointestinal: non-tender, soft Genitourinary - Male: other (Suprapubic catheter) Extremities: normal pulses Results Result Diagram: 05/21/17 0550 05/21/17 0550 Results 24 hrs Laboratory Tests Test 05/21/17 05:50 White Blood Count 6.7 Red Blood Count 4.33 L Hemoglobin 13.5 L Hematocrit 40.4 L Mean Corpuscular Volume 93.3 Mean Corpuscular Hemoglobin 31.2 Mean Corpuscular Hemoglobin Concent 33.4 Red Cell Distribution Width 13.3 Platelet Count 220 Mean Platelet Volume 10.3 Neutrophils % 32.6 L Lymphocytes % 52.2 H Monocytes % 11.3 H Eosinophils % 2.2 Basophils % 1.3 Nucleated Red Blood Cells % 0.0 Neutrophils # 2.2 Lymphocytes # 3.5 H Monocytes # 0.8 Eosinophils # 0.2 Basophils # 0.1 Nucleated Red Blood Cells # 0.0 Sodium Level 144 Potassium Level 3.9 Chloride Level 113 H Carbon Dioxide Level 22 Anion Gap 13 Blood Urea Nitrogen 31 H Creatinine 2.12 H Glucose Level 94 Calcium Level 9.0 Medications Medications Current Medications Quetiapine Fumarate (Seroquel) 100 mg BID PO Last administered on 05/21/17 08 :44; Admin Dose 100 MG; Start 05/12/17 at 21:00 Ascorbic Acid (Vitamin C) 500 mg DAILY PO Last administered on 05/21/17 08:46 ; Admin Dose 500 MG; Start 05/13/17 at 09:00 Atorvastatin Calcium (Lipitor) 10 mg QHS PO Last administered on 05/20/17 21: 18; Admin Dose 10 MG; Start 05/12/17 at 21:00 Donepezil HCl (Aricept) 10 mg DAILY PO Last administered on 05/21/17 08:45; Admin Dose 10 MG; Start 05/13/17 at 09:00 Metoprolol Tartrate (Lopressor) 100 mg BID GTB Last administered on 05/21/17 08:45; Admin Dose 100 MG; Start 05/12/17 at 21:00 Hydralazine HCl (Apresoline) 10 mg Q4H PRN IV SBP>170 Last administered on 08:25; Admin Dose 10 MG; Start 05/12/17 at 15:30 Ondansetron HCl (Zofran Inj) 4 mg Q6H PRN IV NAUSEA AND/OR VOMITING; Start 05/12/17 at 15:30 Acetaminophen (Tylenol Tab) 650 mg Q6H PRN PO PAIN LEVEL 1-3 OR FEVER Last administered on 05/14/17 11:18; Admin Dose 650 MG; Start 05/12/17 at 15:30 Docusate Sodium (Colace) 100 mg Q12H PRN PO CONSTIPATION; Start 05/12/17 at 15: 30 Enoxaparin Sodium (Lovenox) 30 mg DAILY SC Last administered on 05/21/17 08: 52; Admin Dose 30 MG; Start 05/13/17 at 09:00 Famotidine 20 mg 20 mg Q24H PO Last administered on 05/20/17 21:18; Admin Dose 20 MG; Start 05/12/17 at 21:00 Ceftriaxone Sodium 50 ml @ 100 mls/hr Q24H IVPB Last administered on 13:25; Admin Dose 100 MLS/HR; Start 05/15/17 at 13:30 Fluconazole/ Sodium Chloride (Diflucan 100 Mg/ NS (Pmx)) 50 ml @ 50 mls/hr Q24H IVPB Last administered on 05/20/17 14:29; Admin Dose 50 MLS/HR; Start at 13:30 Lorazepam 0.5 mg 0.5 mg Q2H PRN IV AGITATION Last administered on 05/16/17 00: 03; Admin Dose 0.5 MG; Start 05/16/17 at 00:00 Vancomycin HCl (Vancocin) 250 ml @ 125 mls/hr Q36H IVPB Last administered on 05/20/17 03:27; Admin Dose 125 MLS/HR; Start 05/17/17 at 03:00 Divalproex Sodium (Depakote Er) 750 mg BID PO Last administered on 05/21/17 08:46; Admin Dose 750 MG; Start 05/16/17 at 21:00 Nifedipine (Procardia Xl) 30 mg QHS PO Last administered on 05/20/17 21:18; Admin Dose 30 MG; Start 05/20/17 at 21:00 Amlodipine Besylate (Norvasc) 10 mg DAILY PO Last administered on 05/21/17 08 :45; Admin Dose 10 MG; Start 05/21/17 at 09:00 MARIA ANTONIA GERMAN May 21, 2017 13:56
[2017-05-21] MEDS: CEFTRIAXONE 1 GM/50 ML (PMX) 50 ML IVPB SCH (14:38)
[2017-05-21] MEDS: VANCOMYCIN 1 GM in NS 250 ML IVPB SCH (15:00)
--- NOTE | 2017-05-21 18:52 | CONS ---
Date/Time of Note Date/Time of Note DATE: 05/21/17 TIME: 18:50 Assessment/Plan Assessment/Plan Additional Assessment/Plan 1. acute on chronic renal failure due to ATN from sepsis and prerenal azotemia- Improving with IVF hydration 2. sepsis due to UTI - Urien cx grew E/coli,. Enterococcus, MRSA and filipe 3. 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 HTN 5. HL 6. H/o CVA with residual left weakness Plan : IV abx ceftriaxone and Vancomycin, IV fluconazole, ID consulted, Urien cx grew E /coli,. Enterococcus, MRSA and filipe ]renally dose all abx Cr 2.12 today - no indicatin for dialysis at this time, discussed with patient daughter at bedside yesterday pt previously had a fulll CKD work up and his Renal US on last admission in 2016 showed Bilateral cortical thinning and increased echogenicity compatible with chronic medical renal disease. No evidence of hydronephrosis, nephrolithiasis or obstructive uropathy. continue Suprapubic Catheter care, will follow up Consultation Date/Type/Reason Admit Date/Time May 12, 2017 at 10:53 Initial Consult Date 05/12/17 Type of Consultation: NEPHROLOGY Referring Provider: VANESSA LOPES MD 24 HR Interval Summary Free Text/Dictation Cr 2.12 Exam/Review of Systems Vital Signs Vitals Vital Signs Date Time Temp Pulse Resp B/P Pulse Ox O2 Delivery O2 Flow Rate FiO2 05/21/17 13:34 97.9 74 18 139/84 97 05/17/17 08:00 Room Air Intake and Output 05/20/17 05/20/17 05/21/17 15:00 23:00 07:00 Intake Total 1600 ml 480 ml Output Total 1000 ml 600 ml Balance 600 ml -120 ml Exam Constitutional: alert Psych: no complaints Neck: non-tender, supple Respiratory: clear to auscultation, diminished breath sounds, normal air movement Cardiovascular: nl pulses, regular rate and rhythm Gastrointestinal: non-tender, soft Musculoskeletal: muscle tone, muscle weakness, nl extremities to inspection, nl gait and stance, spine non-tender Neurological: COAL CRUSHER OPERATOR II-XII intact, nl mental status, nl speech, nl strength Results Result Diagram: 05/21/17 0550 05/21/17 0550 Results 24 hrs Laboratory Tests Test 05/21/17 05:50 White Blood Count 6.7 Red Blood Count 4.33 L Hemoglobin 13.5 L Hematocrit 40.4 L Mean Corpuscular Volume 93.3 Mean Corpuscular Hemoglobin 31.2 Mean Corpuscular Hemoglobin Concent 33.4 Red Cell Distribution Width 13.3 Platelet Count 220 Mean Platelet Volume 10.3 Neutrophils % 32.6 L Lymphocytes % 52.2 H Monocytes % 11.3 H Eosinophils % 2.2 Basophils % 1.3 Nucleated Red Blood Cells % 0.0 Neutrophils # 2.2 Lymphocytes # 3.5 H Monocytes # 0.8 Eosinophils # 0.2 Basophils # 0.1 Nucleated Red Blood Cells # 0.0 Sodium Level 144 Potassium Level 3.9 Chloride Level 113 H Carbon Dioxide Level 22 Anion Gap 13 Blood Urea Nitrogen 31 H Creatinine 2.12 H Glucose Level 94 Calcium Level 9.0 Medications Medications Current Medications Quetiapine Fumarate (Seroquel) 100 mg BID PO Last administered on 05/21/17 08 :44; Admin Dose 100 MG; Start 05/12/17 at 21:00 Ascorbic Acid (Vitamin C) 500 mg DAILY PO Last administered on 05/21/17 08:46 ; Admin Dose 500 MG; Start 05/13/17 at 09:00 Atorvastatin Calcium (Lipitor) 10 mg QHS PO Last administered on 05/20/17 21: 18; Admin Dose 10 MG; Start 05/12/17 at 21:00 Donepezil HCl (Aricept) 10 mg DAILY PO Last administered on 05/21/17 08:45; Admin Dose 10 MG; Start 05/13/17 at 09:00 Metoprolol Tartrate (Lopressor) 100 mg BID GTB Last administered on 05/21/17 08:45; Admin Dose 100 MG; Start 05/12/17 at 21:00 Hydralazine HCl (Apresoline) 10 mg Q4H PRN IV SBP>170 Last administered on 08:25; Admin Dose 10 MG; Start 05/12/17 at 15:30 Ondansetron HCl (Zofran Inj) 4 mg Q6H PRN IV NAUSEA AND/OR VOMITING; Start 05/12/17 at 15:30 Acetaminophen (Tylenol Tab) 650 mg Q6H PRN PO PAIN LEVEL 1-3 OR FEVER Last administered on 05/14/17 11:18; Admin Dose 650 MG; Start 05/12/17 at 15:30 Docusate Sodium (Colace) 100 mg Q12H PRN PO CONSTIPATION; Start 05/12/17 at 15: 30 Enoxaparin Sodium (Lovenox) 30 mg DAILY SC Last administered on 05/21/17 08: 52; Admin Dose 30 MG; Start 05/13/17 at 09:00 Famotidine 20 mg 20 mg Q24H PO Last administered on 05/20/17 21:18; Admin Dose 20 MG; Start 05/12/17 at 21:00 Ceftriaxone Sodium 50 ml @ 100 mls/hr Q24H IVPB Last administered on 14:38; Admin Dose 100 MLS/HR; Start 05/15/17 at 13:30 Fluconazole/ Sodium Chloride (Diflucan 100 Mg/ NS (Pmx)) 50 ml @ 50 mls/hr Q24H IVPB Last administered on 05/21/17 13:30; Admin Dose 50 MLS/HR; Start at 13:30 Lorazepam 0.5 mg 0.5 mg Q2H PRN IV AGITATION Last administered on 05/16/17 00: 03; Admin Dose 0.5 MG; Start 05/16/17 at 00:00 Vancomycin HCl (Vancocin) 250 ml @ 125 mls/hr Q36H IVPB Last administered on 05/21/17 15:00; Admin Dose 125 MLS/HR; Start 05/17/17 at 03:00 Divalproex Sodium (Depakote Er) 750 mg BID PO Last administered on 05/21/17 08:46; Admin Dose 750 MG; Start 05/16/17 at 21:00 Nifedipine (Procardia Xl) 30 mg QHS PO Last administered on 05/20/17 21:18; Admin Dose 30 MG; Start 05/20/17 at 21:00 Amlodipine Besylate (Norvasc) 10 mg DAILY PO Last administered on 05/21/17 08 :45; Admin Dose 10 MG; Start 05/21/17 at 09:00 NI WATSON MD May 21, 2017 18:52
[2017-05-21 20:35] VITALS: BP 124/73; RESP 18
[2017-05-21] MEDS: ATORVASTATIN 10 MG TAB PO SCH (21:19)
[2017-05-21] MEDS: FAMOTIDINE 20 MG TAB PO SCH (21:19)
[2017-05-21] MEDS: NIFEdipine (XL) 30 MG TAB PO SCH (21:20)
--- NOTE | 2017-05-21 22:20 | CONS ---
Date/Time of Note Date/Time of Note DATE: 05/21/17 TIME: 22:19 Assessment/Plan Assessment/Plan Chief Complaint/Hosp Course SUBJECTIVE: No acute changes overnight. No fevers, awake, denies pain, looks comfortable MICROBIOLOGY: Urine culture grew Daniela albicans and MRSA, enterococcus and E. coli. ANTIMICROBIALS: Vancomycin, Rocephin, fluconazole. INDWELLINGS: Suprapubic catheter. PHYSICAL EXAMINATION: GENERAL: This is a well-developed, fragile, elderly man who is in no distress. HEENT: Head atraumatic, normocephalic. Sclerae anicteric. Buccal mucosa dry. NECK: Supple. CHEST: Rise symmetrical. Breath sounds diminished to bases. HEART: S1, S2. ABDOMEN: Soft, bowel tones present. EXTREMITIES: No cyanosis. ASSESSMENT: 1. Multidrug resistant urinary tract infection. 2. Acute encephalopathy. 3. Chronic kidney disease. 4. Diabetes. 5. History of cerebrovascular accident. 6. Chronic suprapubic catheter. Plan: Remains stable, will dc abx tomorrow staff Problems: Consultation Date/Type/Reason Admit Date/Time May 12, 2017 at 10:53 Initial Consult Date 05/12/17 Type of Consultation: ID Referring Provider: VANESSA LOPES MD Exam/Review of Systems Vital Signs Vitals Vital Signs Date Time Temp Pulse Resp B/P Pulse Ox O2 Delivery O2 Flow Rate FiO2 05/21/17 20:35 98.3 59 18 124/73 97 05/17/17 08:00 Room Air Intake and Output 05/20/17 05/20/17 05/21/17 15:00 23:00 07:00 Intake Total 1600 ml 480 ml Output Total 1000 ml 600 ml Balance 600 ml -120 ml Results Result Diagram: 05/21/17 0550 05/21/17 0550 Results 24 hrs Laboratory Tests Test 05/21/17 05:50 White Blood Count 6.7 Red Blood Count 4.33 L Hemoglobin 13.5 L Hematocrit 40.4 L Mean Corpuscular Volume 93.3 Mean Corpuscular Hemoglobin 31.2 Mean Corpuscular Hemoglobin Concent 33.4 Red Cell Distribution Width 13.3 Platelet Count 220 Mean Platelet Volume 10.3 Neutrophils % 32.6 L Lymphocytes % 52.2 H Monocytes % 11.3 H Eosinophils % 2.2 Basophils % 1.3 Nucleated Red Blood Cells % 0.0 Neutrophils # 2.2 Lymphocytes # 3.5 H Monocytes # 0.8 Eosinophils # 0.2 Basophils # 0.1 Nucleated Red Blood Cells # 0.0 Sodium Level 144 Potassium Level 3.9 Chloride Level 113 H Carbon Dioxide Level 22 Anion Gap 13 Blood Urea Nitrogen 31 H Creatinine 2.12 H Glucose Level 94 Calcium Level 9.0 Medications Medications Current Medications Quetiapine Fumarate (Seroquel) 100 mg BID PO Last administered on 05/21/17 21 :19; Admin Dose 100 MG; Start 05/12/17 at 21:00 Ascorbic Acid (Vitamin C) 500 mg DAILY PO Last administered on 05/21/17 08:46 ; Admin Dose 500 MG; Start 05/13/17 at 09:00 Atorvastatin Calcium (Lipitor) 10 mg QHS PO Last administered on 05/21/17 21: 19; Admin Dose 10 MG; Start 05/12/17 at 21:00 Donepezil HCl (Aricept) 10 mg DAILY PO Last administered on 05/21/17 08:45; Admin Dose 10 MG; Start 05/13/17 at 09:00 Metoprolol Tartrate (Lopressor) 100 mg BID GTB Last administered on 05/21/17 21:19; Admin Dose 100 MG; Start 05/12/17 at 21:00 Hydralazine HCl (Apresoline) 10 mg Q4H PRN IV SBP>170 Last administered on 08:25; Admin Dose 10 MG; Start 05/12/17 at 15:30 Ondansetron HCl (Zofran Inj) 4 mg Q6H PRN IV NAUSEA AND/OR VOMITING; Start 05/12/17 at 15:30 Acetaminophen (Tylenol Tab) 650 mg Q6H PRN PO PAIN LEVEL 1-3 OR FEVER Last administered on 05/14/17 11:18; Admin Dose 650 MG; Start 05/12/17 at 15:30 Docusate Sodium (Colace) 100 mg Q12H PRN PO CONSTIPATION; Start 05/12/17 at 15: 30 Enoxaparin Sodium (Lovenox) 30 mg DAILY SC Last administered on 05/21/17 08: 52; Admin Dose 30 MG; Start 05/13/17 at 09:00 Famotidine 20 mg 20 mg Q24H PO Last administered on 05/21/17 21:19; Admin Dose 20 MG; Start 05/12/17 at 21:00 Ceftriaxone Sodium 50 ml @ 100 mls/hr Q24H IVPB Last administered on 14:38; Admin Dose 100 MLS/HR; Start 05/15/17 at 13:30 Fluconazole/ Sodium Chloride (Diflucan 100 Mg/ NS (Pmx)) 50 ml @ 50 mls/hr Q24H IVPB Last administered on 05/21/17 13:30; Admin Dose 50 MLS/HR; Start at 13:30 Lorazepam 0.5 mg 0.5 mg Q2H PRN IV AGITATION Last administered on 05/16/17 00: 03; Admin Dose 0.5 MG; Start 05/16/17 at 00:00 Vancomycin HCl (Vancocin) 250 ml @ 125 mls/hr Q36H IVPB Last administered on 05/21/17 15:00; Admin Dose 125 MLS/HR; Start 05/17/17 at 03:00 Divalproex Sodium (Depakote Er) 750 mg BID PO Last administered on 05/21/17 21:19; Admin Dose 750 MG; Start 05/16/17 at 21:00 Nifedipine (Procardia Xl) 30 mg QHS PO Last administered on 05/21/17 21:20; Admin Dose 30 MG; Start 05/20/17 at 21:00 Amlodipine Besylate (Norvasc) 10 mg DAILY PO Last administered on 05/21/17 08 :45; Admin Dose 10 MG; Start 05/21/17 at 09:00 ANGI ZEPEDA NP May 21, 2017 22:20
[2017-05-22 02:55] VITALS: BP 133/78; RESP 16
[2017-05-22 05:46] LABS: BASOPHIL # 0.1 10^3/ul (0.0-0.1); BASOPHILS % 0.9 % (0.0-2.0); EOSINOPHILS # 0.2 10^3/ul (0.0-0.5); EOSINOPHILS % 2.6 % (0.0-7.0); HEMATOCRIT 41.3 % (42.0-52.0); HEMOGLOBIN 13.8 g/dl (14.0-18.0); LYMPHOCYTES # 3.5 10^3/ul (0.8-2.9); LYMPHOCYTES % 45.3 % (15.0-51.0); MEAN CORPUSCULAR HGB CONC 33.4 g/dl (32.0-37.0); MEAN CORPUSCULAR VOLUME 92.8 fl (82.0-101.0); MEAN PLATELET VOLUME 10.9 fl (7.4-10.4); MONOCYTE # 0.8 10^3/ul (0.3-0.9); MONOCYTES % 10.2 % (0.0-11.0); NEUTROPHIL # 3.1 10^3/ul (1.6-7.5); NEUTROPHILS % 40.5 % (39.0-77.0); PLATELET COUNT 210 10^3/UL (140-415); RED BLOOD COUNT 4.45 10^6/ul (4.70-6.10); RED CELL DISTRIBUTION WIDTH 13.2 % (11.5-14.5); WHITE BLOOD COUNT 7.7 10^3/ul (4.8-10.8)
[2017-05-22 05:58] LABS: CALCIUM 9.3 mg/dl (8.4-10.2); CREATININE 2.09 mg/dl (0.61-1.24); POTASSIUM 3.7 mmol/L (3.5-5.1)
[2017-05-22 07:45] VITALS: BP 152/90; RESP 19
[2017-05-22] MEDS: DONEPEZIL 10 MG TAB PO SCH (08:40)
[2017-05-22] MEDS: DIVALPROEX (ER) 250 MG TAB PO SCH ×2 (08:40→20:29)
[2017-05-22] MEDS: METOPROLOL 100 MG TAB GTB SCH ×2 (08:41→20:30)
[2017-05-22] MEDS: ASCORBIC ACID 500 MG TAB PO SCH (08:41)
[2017-05-22] MEDS: AMLODIPINE 10 MG TAB PO SCH (08:41)
[2017-05-22] MEDS: QUETIAPINE 100 MG TAB PO SCH ×2 (08:41→20:30)
[2017-05-22] MEDS: ENOXAPARIN 30 MG/0.3 ML SYG SC SCH (08:47)
--- NOTE | 2017-05-22 12:45 | CONS ---
Date/Time of Note Date/Time of Note DATE: 05/22/17 TIME: 12:44 Assessment/Plan Assessment/Plan Chief Complaint/Hosp Course SUBJECTIVE: No acute changes overnight. No fevers, looks comfortable MICROBIOLOGY: Urine culture grew Daniela albicans and MRSA, enterococcus and E. coli. ANTIMICROBIALS: Vancomycin, Rocephin, fluconazole. INDWELLINGS: Suprapubic catheter. PHYSICAL EXAMINATION: GENERAL: This is a well-developed, fragile, elderly man who is in no distress. HEENT: Head atraumatic, normocephalic. Sclerae anicteric. Buccal mucosa dry. NECK: Supple. CHEST: Rise symmetrical. Breath sounds diminished to bases. HEART: S1, S2. ABDOMEN: Soft, bowel tones present. EXTREMITIES: No cyanosis. ASSESSMENT: 1. Multidrug resistant urinary tract infection. 2. Acute encephalopathy. 3. Chronic kidney disease. 4. Diabetes. 5. History of cerebrovascular accident. 6. Chronic suprapubic catheter. Plan: Remains stable, will dc abx and observe DW family at bedside Problems: Consultation Date/Type/Reason Admit Date/Time May 12, 2017 at 10:53 Initial Consult Date 05/12/17 Type of Consultation: ID Referring Provider: VANESSA LOPES MD Exam/Review of Systems Vital Signs Vitals Vital Signs Date Time Temp Pulse Resp B/P Pulse Ox O2 Delivery O2 Flow Rate FiO2 05/22/17 07:45 98.4 73 19 152/90 96 Intake and Output 05/21/17 05/21/17 05/22/17 15:00 23:00 07:00 Intake Total 50 ml 1360 ml 1280 ml Output Total 500 ml 1650 ml Balance 50 ml 860 ml -370 ml Results Result Diagram: 05/22/17 0514 05/22/17 0514 Results 24 hrs Laboratory Tests Test 05/22/17 05:14 White Blood Count 7.7 Red Blood Count 4.45 L Hemoglobin 13.8 L Hematocrit 41.3 L Mean Corpuscular Volume 92.8 Mean Corpuscular Hemoglobin 31.0 Mean Corpuscular Hemoglobin Concent 33.4 Red Cell Distribution Width 13.2 Platelet Count 210 Mean Platelet Volume 10.9 H Neutrophils % 40.5 Lymphocytes % 45.3 Monocytes % 10.2 Eosinophils % 2.6 Basophils % 0.9 Nucleated Red Blood Cells % 0.0 Neutrophils # 3.1 Lymphocytes # 3.5 H Monocytes # 0.8 Eosinophils # 0.2 Basophils # 0.1 Nucleated Red Blood Cells # 0.0 Sodium Level 143 Potassium Level 3.7 Chloride Level 112 H Carbon Dioxide Level 22 Anion Gap 13 Blood Urea Nitrogen 30 H Creatinine 2.09 H Glucose Level 93 Calcium Level 9.3 Medications Medications Current Medications Quetiapine Fumarate (Seroquel) 100 mg BID PO Last administered on 05/22/17 08 :41; Admin Dose 100 MG; Start 05/12/17 at 21:00 Ascorbic Acid (Vitamin C) 500 mg DAILY PO Last administered on 05/22/17 08:41 ; Admin Dose 500 MG; Start 05/13/17 at 09:00 Atorvastatin Calcium (Lipitor) 10 mg QHS PO Last administered on 05/21/17 21: 19; Admin Dose 10 MG; Start 05/12/17 at 21:00 Donepezil HCl (Aricept) 10 mg DAILY PO Last administered on 05/22/17 08:40; Admin Dose 10 MG; Start 05/13/17 at 09:00 Metoprolol Tartrate (Lopressor) 100 mg BID GTB Last administered on 05/22/17 08:41; Admin Dose 100 MG; Start 05/12/17 at 21:00 Hydralazine HCl (Apresoline) 10 mg Q4H PRN IV SBP>170 Last administered on 08:25; Admin Dose 10 MG; Start 05/12/17 at 15:30 Ondansetron HCl (Zofran Inj) 4 mg Q6H PRN IV NAUSEA AND/OR VOMITING; Start 05/12/17 at 15:30 Acetaminophen (Tylenol Tab) 650 mg Q6H PRN PO PAIN LEVEL 1-3 OR FEVER Last administered on 05/14/17 11:18; Admin Dose 650 MG; Start 05/12/17 at 15:30 Docusate Sodium (Colace) 100 mg Q12H PRN PO CONSTIPATION; Start 05/12/17 at 15: 30 Enoxaparin Sodium (Lovenox) 30 mg DAILY SC Last administered on 05/22/17 08: 47; Admin Dose 30 MG; Start 05/13/17 at 09:00 Famotidine (Pepcid) 20 mg Q24H PO Last administered on 10/11/17at 21:19; Admin Dose 20 MG; Start 05/12/17 at 21:00 Lorazepam (Ativan) 0.5 mg Q2H PRN IV AGITATION Last administered on 05/16/17 00:03; Admin Dose 0.5 MG; Start 05/16/17 at 00:00 Divalproex Sodium (Depakote Er) 750 mg BID PO Last administered on 05/22/17 08:40; Admin Dose 750 MG; Start 05/16/17 at 21:00 Nifedipine (Procardia Xl) 30 mg QHS PO Last administered on 05/21/17 21:20; Admin Dose 30 MG; Start 05/20/17 at 21:00 Amlodipine Besylate (Norvasc) 10 mg DAILY PO Last administered on 05/22/17 08 :41; Admin Dose 10 MG; Start 05/21/17 at 09:00 ANGI ZEPEDA NP May 22, 2017 12:45
--- NOTE | 2017-05-22 13:37 | RADRPT ---
Vent Rate: 75 bpm RR Interval: 0 msec MD Interval: 180 msec QRS Duration: 98 msec QT Interval: 430 msec QTC Interval: 480 msec P-R-T Dodson: 38 - 0 - 106 degrees Normal sinus rhythm Right superior axis deviation Incomplete right bundle branch block Nonspecific ST and T wave abnormality Prolonged QT Abnormal ECG Electronically Signed By: Juvenal Wan [id number]
[2017-05-22 14:49] VITALS: BP 130/83; RESP 18
--- NOTE | 2017-05-22 17:43 | PN ---
Date/Time of Note Date/Time of Note DATE: 05/22/17 TIME: 17:40 Assessment/Plan Lines/Catheters IV Catheter Type (from [facility]): [facility] Urinary Cath still in place: Yes Assessment/Plan Assessment/Plan - Acute cystitis. Continue abx per ID. - Sepsis secondary to number 1, resolving. is following in Infectious Disease consultation. 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 Continue BUN and creatinine. Dr. Ramsey is following patient in Nephrology consultation. - Acute metabolic encephalopathy - Diabetes mellitus. - Hypertension. Continue Norvasc, Hydralazine, and Procardia. - Hyperlipidemia. - Chronic urinary retention with suprapubic catheter. - Gout. - History of an intracranial hemorrhage with history of ventriculoperitoneal shunt. Repeat CT with stable RN [facility] shunt Psych consult pending,Dc with , daughter wants to have psych consult before dc Further recommendations based on clinical course. Plan of care discussed with Dr. Cartagena. Exam/Review of Systems Vital Signs Vitals Vital Signs Date Time Temp Pulse Resp B/P Pulse Ox O2 Delivery O2 Flow Rate FiO2 05/22/17 14:49 98.1 63 18 130/83 98 Intake and Output 05/21/17 05/21/17 05/22/17 14:59 22:59 06:59 Intake Total 50 ml 1360 ml 1280 ml Output Total 500 ml 1650 ml Balance 50 ml 860 ml -370 ml Results Result Diagram: 05/22/17 0514 05/22/17 0514 Results 24 hrs Laboratory Tests Test 05/22/17 05:14 White Blood Count 7.7 Red Blood Count 4.45 L Hemoglobin 13.8 L Hematocrit 41.3 L Mean Corpuscular Volume 92.8 Mean Corpuscular Hemoglobin 31.0 Mean Corpuscular Hemoglobin Concent 33.4 Red Cell Distribution Width 13.2 Platelet Count 210 Mean Platelet Volume 10.9 H Neutrophils % 40.5 Lymphocytes % 45.3 Monocytes % 10.2 Eosinophils % 2.6 Basophils % 0.9 Nucleated Red Blood Cells % 0.0 Neutrophils # 3.1 Lymphocytes # 3.5 H Monocytes # 0.8 Eosinophils # 0.2 Basophils # 0.1 Nucleated Red Blood Cells # 0.0 Sodium Level 143 Potassium Level 3.7 Chloride Level 112 H Carbon Dioxide Level 22 Anion Gap 13 Blood Urea Nitrogen 30 H Creatinine 2.09 H Glucose Level 93 Calcium Level 9.3 Medications Medications Current Medications Quetiapine Fumarate (Seroquel) 100 mg BID PO Last administered on 05/22/17 08 :41; Admin Dose 100 MG; Start 05/12/17 at 21:00 Ascorbic Acid (Vitamin C) 500 mg DAILY PO Last administered on 05/22/17 08:41 ; Admin Dose 500 MG; Start 05/13/17 at 09:00 Atorvastatin Calcium (Lipitor) 10 mg QHS PO Last administered on 05/21/17 21: 19; Admin Dose 10 MG; Start 05/12/17 at 21:00 Donepezil HCl (Aricept) 10 mg DAILY PO Last administered on 05/22/17 08:40; Admin Dose 10 MG; Start 05/13/17 at 09:00 Metoprolol Tartrate (Lopressor) 100 mg BID GTB Last administered on 05/22/17 08:41; Admin Dose 100 MG; Start 05/12/17 at 21:00 Hydralazine HCl (Apresoline) 10 mg Q4H PRN IV SBP>170 Last administered on 08:25; Admin Dose 10 MG; Start 05/12/17 at 15:30 Ondansetron HCl (Zofran Inj) 4 mg Q6H PRN IV NAUSEA AND/OR VOMITING; Start 05/12/17 at 15:30 Acetaminophen (Tylenol Tab) 650 mg Q6H PRN PO PAIN LEVEL 1-3 OR FEVER Last administered on 05/14/17 11:18; Admin Dose 650 MG; Start 05/12/17 at 15:30 Docusate Sodium (Colace) 100 mg Q12H PRN PO CONSTIPATION; Start 05/12/17 at 15: 30 Enoxaparin Sodium (Lovenox) 30 mg DAILY SC Last administered on 05/22/17 08: 47; Admin Dose 30 MG; Start 05/13/17 at 09:00 Famotidine (Pepcid) 20 mg Q24H PO Last administered on 05/21/17 21:19; Admin Dose 20 MG; Start 05/12/17 at 21:00 Lorazepam (Ativan) 0.5 mg Q2H PRN IV AGITATION Last administered on 05/16/17 00:03; Admin Dose 0.5 MG; Start 05/16/17 at 00:00 Divalproex Sodium (Depakote Er) 750 mg BID PO Last administered on 05/22/17 08:40; Admin Dose 750 MG; Start 05/16/17 at 21:00 Nifedipine (Procardia Xl) 30 mg QHS PO Last administered on 05/21/17 21:20; Admin Dose 30 MG; Start 05/20/17 at 21:00 Amlodipine Besylate (Norvasc) 10 mg DAILY PO Last administered on 05/22/17 08 :41; Admin Dose 10 MG; Start 05/21/17 at 09:00 PANDA SKAGGS May 22, 2017 17:43
[2017-05-22 20:02] VITALS: BP 187/99; RESP 16
[2017-05-22] MEDS: ATORVASTATIN 10 MG TAB PO SCH (20:30)
[2017-05-22] MEDS: FAMOTIDINE 20 MG TAB PO SCH (20:30)
[2017-05-22] MEDS: NIFEdipine (XL) 30 MG TAB PO SCH (20:30)
--- NOTE | 2017-05-22 20:35 | CONS ---
Date/Time of Note Date/Time of Note DATE: 05/22/17 TIME: 20:34 Assessment/Plan Assessment/Plan Additional Assessment/Plan 1. acute on chronic renal failure due to ATN from sepsis and prerenal azotemia- Improving with IVF hydration 2. sepsis due to UTI - Urien cx grew E/coli,. Enterococcus, MRSA and filipe 3. 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 HTN 5. HL 6. H/o CVA with residual left weakness Plan : All antibiotics and antifungals stopped Cr 2.09 today - no indicatin for dialysis at this time, discussed with patient daughter at bedside yesterday pt previously had a fulll CKD work up and his Renal US on last admission in 2016 showed Bilateral cortical thinning and increased echogenicity compatible with chronic medical renal disease. No evidence of hydronephrosis, nephrolithiasis or obstructive uropathy. continue Suprapubic Catheter care, will follow up Consultation Date/Type/Reason Admit Date/Time May 12, 2017 at 10:53 Initial Consult Date 05/12/17 Type of Consultation: NEPHROLOGY Referring Provider: VANESSA LOPES MD 24 HR Interval Summary Free Text/Dictation Cr 2.09, BP stable, afebrile Exam/Review of Systems Vital Signs Vitals Vital Signs Date Time Temp Pulse Resp B/P Pulse Ox O2 Delivery O2 Flow Rate FiO2 05/22/17 20:02 98.2 82 16 187/99 97 Intake and Output 05/21/17 05/21/17 05/22/17 15:00 23:00 07:00 Intake Total 50 ml 1360 ml 1280 ml Output Total 500 ml 1650 ml Balance 50 ml 860 ml -370 ml Exam Constitutional: alert Psych: no complaints Neck: non-tender, supple Respiratory: clear to auscultation, diminished breath sounds, normal air movement Cardiovascular: nl pulses, regular rate and rhythm Gastrointestinal: non-tender, soft Musculoskeletal: muscle tone, muscle weakness, nl extremities to inspection, nl gait and stance, spine non-tender Neurological: LEGISLATIVE ASSISTANT II-XII intact, nl mental status, nl speech, nl strength Results Result Diagram: 05/22/1714 05/22/17 0514 Results 24 hrs Laboratory Tests Test 05/22/17 05:14 White Blood Count 7.7 Red Blood Count 4.45 L Hemoglobin 13.8 L Hematocrit 41.3 L Mean Corpuscular Volume 92.8 Mean Corpuscular Hemoglobin 31.0 Mean Corpuscular Hemoglobin Concent 33.4 Red Cell Distribution Width 13.2 Platelet Count 210 Mean Platelet Volume 10.9 H Neutrophils % 40.5 Lymphocytes % 45.3 Monocytes % 10.2 Eosinophils % 2.6 Basophils % 0.9 Nucleated Red Blood Cells % 0.0 Neutrophils # 3.1 Lymphocytes # 3.5 H Monocytes # 0.8 Eosinophils # 0.2 Basophils # 0.1 Nucleated Red Blood Cells # 0.0 Sodium Level 143 Potassium Level 3.7 Chloride Level 112 H Carbon Dioxide Level 22 Anion Gap 13 Blood Urea Nitrogen 30 H Creatinine 2.09 H Glucose Level 93 Calcium Level 9.3 Medications Medications Current Medications Quetiapine Fumarate (Seroquel) 100 mg BID PO Last administered on 05/22/17 20 :30; Admin Dose 100 MG; Start 05/12/17 at 21:00 Ascorbic Acid (Vitamin C) 500 mg DAILY PO Last administered on 05/22/17 08:41 ; Admin Dose 500 MG; Start 05/13/17 at 09:00 Atorvastatin Calcium (Lipitor) 10 mg QHS PO Last administered on 05/22/17 20: 30; Admin Dose 10 MG; Start 05/12/17 at 21:00 Donepezil HCl (Aricept) 10 mg DAILY PO Last administered on 05/22/17 08:40; Admin Dose 10 MG; Start 05/13/17 at 09:00 Metoprolol Tartrate (Lopressor) 100 mg BID GTB Last administered on 05/22/17 20:30; Admin Dose 100 MG; Start 05/12/17 at 21:00 Hydralazine HCl (Apresoline) 10 mg Q4H PRN IV SBP>170 Last administered on 08:25; Admin Dose 10 MG; Start 05/12/17 at 15:30 Ondansetron HCl (Zofran Inj) 4 mg Q6H PRN IV NAUSEA AND/OR VOMITING; Start 05/12/17 at 15:30 Acetaminophen (Tylenol Tab) 650 mg Q6H PRN PO PAIN LEVEL 1-3 OR FEVER Last administered on 05/14/17 11:18; Admin Dose 650 MG; Start 05/12/17 at 15:30 Docusate Sodium (Colace) 100 mg Q12H PRN PO CONSTIPATION; Start 05/12/17 at 15: 30 Enoxaparin Sodium (Lovenox) 30 mg DAILY SC Last administered on 05/22/17 08: 47; Admin Dose 30 MG; Start 05/13/17 at 09:00 Famotidine (Pepcid) 20 mg Q24H PO Last administered on 05/22/17 20:30; Admin Dose 20 MG; Start 05/12/17 at 21:00 Lorazepam (Ativan) 0.5 mg Q2H PRN IV AGITATION Last administered on 05/16/17 00:03; Admin Dose 0.5 MG; Start 05/16/17 at 00:00 Divalproex Sodium (Depakote Er) 750 mg BID PO Last administered on 05/22/17 20:29; Admin Dose 750 MG; Start 05/16/17 at 21:00 Nifedipine (Procardia Xl) 30 mg QHS PO Last administered on 05/22/17 20:30; Admin Dose 30 MG; Start 05/20/17 at 21:00 Amlodipine Besylate (Norvasc) 10 mg DAILY PO Last administered on 05/22/17 08 :41; Admin Dose 10 MG; Start 05/21/17 at 09:00 NI WATSON MD May 22, 2017 20:35
[2017-05-22 21:40] VITALS: BP 147/98; PULSE 88
[2017-05-22] MEDS: LORAZEPAM 2 MG INJ IV PRN (22:53)
[2017-05-23 02:07] VITALS: BP 103/69; RESP 20
[2017-05-23 07:56] VITALS: BP 155/83; RESP 18
[2017-05-23] MEDS: AMLODIPINE 10 MG TAB PO SCH (10:32)
[2017-05-23] MEDS: DIVALPROEX (ER) 250 MG TAB PO SCH ×2 (10:32→21:38)
[2017-05-23] MEDS: ASCORBIC ACID 500 MG TAB PO SCH (10:32)
[2017-05-23] MEDS: QUETIAPINE 100 MG TAB PO SCH ×2 (10:33→21:38)
[2017-05-23] MEDS: METOPROLOL 100 MG TAB GTB SCH ×2 (10:33→21:38)
[2017-05-23] MEDS: DONEPEZIL 10 MG TAB PO SCH (10:33)
[2017-05-23] MEDS: ENOXAPARIN 30 MG/0.3 ML SYG SC SCH (10:38)
[2017-05-23 13:05] VITALS: BP 139/76; RESP 18
--- NOTE | 2017-05-23 13:43 | CONS ---
Date/Time of Note Date/Time of Note DATE: 05/23/17 TIME: 13:43 Consult Date/Type/Reason Admit Date/Time May 12, 2017 at 10:53 Initial Consult Date 05/12/17 Type of Consultation: ID Ordering Provider: VANESSA LOPES MD Objective Vital Signs Date Time Temp Pulse Resp B/P Pulse Ox O2 Delivery O2 Flow Rate FiO2 05/23/17 13:05 97.9 60 18 139/76 98 Intake and Output 05/22/17 05/22/17 05/23/17 15:00 23:00 07:00 Intake Total 720 ml Output Total 1600 ml Balance -880 ml Results/Medications Result Diagram: 05/22/1751305/22/17513 Medications Current Medications Quetiapine Fumarate (Seroquel) 100 mg BID PO Last administered on 05/23/17 10 :33; Admin Dose 100 MG; Start 05/12/17 at 21:00 Ascorbic Acid (Vitamin C) 500 mg DAILY PO Last administered on 05/23/17 10:32 ; Admin Dose 500 MG; Start 05/13/17 at 09:00 Atorvastatin Calcium (Lipitor) 10 mg QHS PO Last administered on 05/22/17 20: 30; Admin Dose 10 MG; Start 05/12/17 at 21:00 Donepezil HCl (Aricept) 10 mg DAILY PO Last administered on 05/23/17 10:33; Admin Dose 10 MG; Start 05/13/17 at 09:00 Metoprolol Tartrate (Lopressor) 100 mg BID GTB Last administered on 05/23/17 10:33; Admin Dose 100 MG; Start 05/12/17 at 21:00 Hydralazine HCl (Apresoline) 10 mg Q4H PRN IV SBP>170 Last administered on 08:25; Admin Dose 10 MG; Start 05/12/17 at 15:30 Ondansetron HCl (Zofran Inj) 4 mg Q6H PRN IV NAUSEA AND/OR VOMITING; Start 05/12/17 at 15:30 Acetaminophen (Tylenol Tab) 650 mg Q6H PRN PO PAIN LEVEL 1-3 OR FEVER Last administered on 05/14/17 11:18; Admin Dose 650 MG; Start 05/12/17 at 15:30 Docusate Sodium (Colace) 100 mg Q12H PRN PO CONSTIPATION; Start 05/12/17 at 15: 30 Enoxaparin Sodium (Lovenox) 30 mg DAILY SC Last administered on 05/23/17 10: 38; Admin Dose 30 MG; Start 05/13/17 at 09:00 Famotidine (Pepcid) 20 mg Q24H PO Last administered on 05/22/17 20:30; Admin Dose 20 MG; Start 05/12/17 at 21:00 Lorazepam (Ativan) 0.5 mg Q2H PRN IV AGITATION Last administered on 05/22/17 22:53; Admin Dose 0.5 MG; Start 05/16/17 at 00:00 Divalproex Sodium (Depakote Er) 750 mg BID PO Last administered on 05/23/17 10:32; Admin Dose 750 MG; Start 05/16/17 at 21:00 Nifedipine (Procardia Xl) 30 mg QHS PO Last administered on 05/22/17 20:30; Admin Dose 30 MG; Start 05/20/17 at 21:00 Amlodipine Besylate (Norvasc) 10 mg DAILY PO Last administered on 05/23/17 10 :32; Admin Dose 10 MG; Start 05/21/17 at 09:00 Assessment/Plan Chief Complaint/Hosp Course SUBJECTIVE: No acute changes overnight. No fevers, looks comfortable INDWELLINGS: Suprapubic catheter. PHYSICAL EXAMINATION: GENERAL: This is a well-developed, fragile, elderly man who is in no distress. HEENT: Head atraumatic, normocephalic. Sclerae anicteric. Buccal mucosa dry. NECK: Supple. CHEST: Rise symmetrical. Breath sounds diminished to bases. HEART: S1, S2. ABDOMEN: Soft, bowel tones present. EXTREMITIES: No cyanosis. ASSESSMENT: 1. Multidrug resistant urinary tract infection. 2. Acute encephalopathy. 3. Chronic kidney disease. 4. Diabetes. 5. History of cerebrovascular accident. 6. Chronic suprapubic catheter. Plan: Remains stable, off abx Problems: ANGI ZEPEDA NP May 23, 2017 13:43
--- NOTE | 2017-05-23 14:31 | PN ---
Date/Time of Note Date/Time of Note DATE: 05/23/17 TIME: 14:29 Assessment/Plan VTE Prophylaxis VTE Prophylaxis Intervention: SCD's Lines/Catheters IV Catheter Type (from [facility]): Saline Lock Urinary Cath still in place: Yes Reason Cath still needed: urinary retention Assessment/Plan Chief Complaint/Hosp Course Pt is undergoing telephsych eval for verbalized threat towards family members. Assessment/Plan - Acute cystitis. Completed abx. - Sepsis secondary to number 1, resolved. is following in Infectious Disease consultation. 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 Continue BUN and creatinine. Dr. Ramsey is following patient in Nephrology consultation. - Acute metabolic encephalopathy - Diabetes mellitus. - Hypertension. Continue Norvasc, Hydralazine, and Procardia. - Hyperlipidemia. - Chronic urinary retention with suprapubic catheter. - Gout. - History of an intracranial hemorrhage with history of ventriculoperitoneal shunt. 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 Plan of care discussed with Dr. Cartagena. Problems: Exam/Review of Systems Vital Signs Vitals Vital Signs Date Time Temp Pulse Resp B/P Pulse Ox O2 Delivery O2 Flow Rate FiO2 05/23/17 13:05 97.9 60 18 139/76 98 Intake and Output 05/22/17 05/22/17 05/23/17 15:00 23:00 07:00 Intake Total 720 ml Output Total 1600 ml Balance -880 ml Exam Constitutional: alert Psych: confusion Head: normocephalic Neck: supple Respiratory: normal air movement Cardiovascular: nl pulses Gastrointestinal: non-tender, soft Genitourinary - Male: other (suprapubic cath) Neurological: confused Results Result Diagram: 05/22/1714 05/22/17513 Medications Medications Current Medications Quetiapine Fumarate (Seroquel) 100 mg BID PO Last administered on 05/23/17 10 :33; Admin Dose 100 MG; Start 05/12/17 at 21:00 Ascorbic Acid (Vitamin C) 500 mg DAILY PO Last administered on 05/23/17 10:32 ; Admin Dose 500 MG; Start 05/13/17 at 09:00 Atorvastatin Calcium (Lipitor) 10 mg QHS PO Last administered on 05/22/17 20: 30; Admin Dose 10 MG; Start 05/12/17 at 21:00 Donepezil HCl (Aricept) 10 mg DAILY PO Last administered on 05/23/17 10:33; Admin Dose 10 MG; Start 05/13/17 at 09:00 Metoprolol Tartrate (Lopressor) 100 mg BID GTB Last administered on 05/23/17 10:33; Admin Dose 100 MG; Start 05/12/17 at 21:00 Hydralazine HCl (Apresoline) 10 mg Q4H PRN IV SBP>170 Last administered on 08:25; Admin Dose 10 MG; Start 05/12/17 at 15:30 Ondansetron HCl (Zofran Inj) 4 mg Q6H PRN IV NAUSEA AND/OR VOMITING; Start 05/12/17 at 15:30 Acetaminophen (Tylenol Tab) 650 mg Q6H PRN PO PAIN LEVEL 1-3 OR FEVER Last administered on 05/14/17 11:18; Admin Dose 650 MG; Start 05/12/17 at 15:30 Docusate Sodium (Colace) 100 mg Q12H PRN PO CONSTIPATION; Start 05/12/17 at 15: 30 Enoxaparin Sodium (Lovenox) 30 mg DAILY SC Last administered on 05/23/17 10: 38; Admin Dose 30 MG; Start 05/13/17 at 09:00 Famotidine (Pepcid) 20 mg Q24H PO Last administered on 05/22/17 20:30; Admin Dose 20 MG; Start 05/12/17 at 21:00 Lorazepam (Ativan) 0.5 mg Q2H PRN IV AGITATION Last administered on 05/22/17 22:53; Admin Dose 0.5 MG; Start 05/16/17 at 00:00 Divalproex Sodium (Depakote Er) 750 mg BID PO Last administered on 05/23/17 10:32; Admin Dose 750 MG; Start 05/16/17 at 21:00 Nifedipine (Procardia Xl) 30 mg QHS PO Last administered on 05/22/17 20:30; Admin Dose 30 MG; Start 05/20/17 at 21:00 Amlodipine Besylate (Norvasc) 10 mg DAILY PO Last administered on 05/23/17 10 :32; Admin Dose 10 MG; Start 05/21/17 at 09:00 MARIA ANTONIA GERMAN May 23, 2017 14:31
--- NOTE | 2017-05-23 15:56 | CONS ---
Date/Time of Note Date/Time of Note DATE: 05/23/17 TIME: 15:55 Assessment/Plan Assessment/Plan Additional Assessment/Plan 1. acute on chronic renal failure due to ATN from sepsis and prerenal azotemia- Improving with IVF hydration 2. sepsis due to UTI - Urien cx grew E/coli,. Enterococcus, MRSA and filipe 3. 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 HTN 5. HL 6. H/o CVA with residual left weakness Plan : All antibiotics and antifungals stopped Cr 2.09 yesteday, no labs today - no indicatin for dialysis at this time, discussed with patient daughter at bedside yesterday pt previously had a fulll CKD work up and his Renal US on last admission in 2016 showed Bilateral cortical thinning and increased echogenicity compatible with chronic medical renal disease. No evidence of hydronephrosis, nephrolithiasis or obstructive uropathy. continue Suprapubic Catheter care, will follow up Consultation Date/Type/Reason Admit Date/Time May 12, 2017 at 10:53 Initial Consult Date 05/12/17 Type of Consultation: NEPHROLOGY Referring Provider: VANESSA LOPES MD Exam/Review of Systems Vital Signs Vitals Vital Signs Date Time Temp Pulse Resp B/P Pulse Ox O2 Delivery O2 Flow Rate FiO2 05/23/17 13:05 97.9 60 18 139/76 98 Intake and Output 05/22/17 05/22/17 05/23/17 15:00 23:00 07:00 Intake Total 720 ml Output Total 1600 ml Balance -880 ml Exam Constitutional: alert Psych: no complaints Neck: non-tender, supple Respiratory: clear to auscultation, diminished breath sounds, normal air movement Cardiovascular: nl pulses, regular rate and rhythm Gastrointestinal: non-tender, soft Musculoskeletal: muscle tone, muscle weakness, nl extremities to inspection, nl gait and stance, spine non-tender Neurological: COGNOS 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 II-XII intact, nl mental status, nl speech, nl strength Results Result Diagram: 05/22/1751305/22/17513 Medications Medications Current Medications Quetiapine Fumarate (Seroquel) 100 mg BID PO Last administered on 05/23/17t 10 :33; Admin Dose 100 MG; Start 05/12/17 at 21:00 Ascorbic Acid (Vitamin C) 500 mg DAILY PO Last administered on 05/23/17 10:32 ; Admin Dose 500 MG; Start 05/13/17 at 09:00 Atorvastatin Calcium (Lipitor) 10 mg QHS PO Last administered on 05/22/17 20: 30; Admin Dose 10 MG; Start 05/12/17 at 21:00 Donepezil HCl (Aricept) 10 mg DAILY PO Last administered on 05/23/17 10:33; Admin Dose 10 MG; Start 05/13/17 at 09:00 Metoprolol Tartrate (Lopressor) 100 mg BID GTB Last administered on 05/23/17 10:33; Admin Dose 100 MG; Start 05/12/17 at 21:00 Hydralazine HCl (Apresoline) 10 mg Q4H PRN IV SBP>170 Last administered on 08:25; Admin Dose 10 MG; Start 05/12/17 at 15:30 Ondansetron HCl (Zofran Inj) 4 mg Q6H PRN IV NAUSEA AND/OR VOMITING; Start 05/12/17 at 15:30 Acetaminophen (Tylenol Tab) 650 mg Q6H PRN PO PAIN LEVEL 1-3 OR FEVER Last administered on 05/14/17 11:18; Admin Dose 650 MG; Start 05/12/17 at 15:30 Docusate Sodium (Colace) 100 mg Q12H PRN PO CONSTIPATION; Start 05/12/17 at 15: 30 Enoxaparin Sodium (Lovenox) 30 mg DAILY SC Last administered on 05/23/17 10: 38; Admin Dose 30 MG; Start 05/13/17 at 09:00 Famotidine (Pepcid) 20 mg Q24H PO Last administered on 05/22/17 20:30; Admin Dose 20 MG; Start 05/12/17 at 21:00 Lorazepam (Ativan) 0.5 mg Q2H PRN IV AGITATION Last administered on 05/22/17 22:53; Admin Dose 0.5 MG; Start 05/16/17 at 00:00 Divalproex Sodium (Depakote Er) 750 mg BID PO Last administered on 05/23/17 10:32; Admin Dose 750 MG; Start 05/16/17 at 21:00 Nifedipine (Procardia Xl) 30 mg QHS PO Last administered on 05/22/17 20:30; Admin Dose 30 MG; Start 05/20/17 at 21:00 Amlodipine Besylate (Norvasc) 10 mg DAILY PO Last administered on 05/23/17 10 :32; Admin Dose 10 MG; Start 05/21/17 at 09:00 NI WATSON MD May 23, 2017 15:56
--- NOTE | 2017-05-23 16:17 | PSY ---
Date/Time of Note Date/Time of Note DATE: 05/23/17 TIME: 16:08 Psychiatric Subjective Eval Consent Pt consented to telemedicine: Yes Subjective Evaluation Patient location: inpatient Chief Complaint: body aches, weaness at times confsion Reason for consult: homicidal statements History of present illness 66 yo male with multiple medical problems and hx vascular dementia admitted due to UTI and sepsis. Pt apparently made statements what he wants to kill his . He has been intermittently agitated and confused. he is improving, however. He says it is upsetting to him if someone reminds him of these statements because he doesn't want to hurt his and he said it out of anger. He is still irritable. He denies any intent to hurt anyone or himself. he denies depression. he says he is upset easily and angry if someone irritates him. he denies Ah or Vh but he has been hallucinating inthehospital. he is on Depakote 500 mg po bid and seroquel 100 mg po bid. Past psychiatric history denies Family History denies Medical history Problems Medical Problems: (1) Abdominal pain Status: Acute (2) Altered mental status Status: Acute (3) Altered mental status Status: Acute (4) Chest pain Status: Acute (5) Complicated UTI (urinary tract infection) Status: Acute (6) Cystitis Status: Acute (7) Encephalopathy Status: Acute (8) Generalized weakness Status: Acute (9) Genitourinary symptoms Status: Acute (10) Genitourinary symptoms Status: Acute (11) Gout Status: Acute (12) Gout flare Status: Acute (13) Hematuria Status: Acute (14) High fever Status: Acute (15) Hyperkalemia Status: Acute (16) Hypertension Status: Acute (17) Knee pain Status: Acute (18) Lactic acidosis Status: Acute (19) Neck strain Status: Acute (20) Sepsis due to cellulitis Status: Acute (21) Severe sepsis Status: Acute (22) UTI (urinary tract infection) Status: Acute Allergies: Coded Allergies: morphine (Verified Allergy, Unknown, 05/12/17) Substance Abuse Substance use: No known substance abuse Social History Marital status: DPA/Conservatorship: No 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 Psychiatric Objective Eval Mental Status Examination: Appearance: Groomed Eye Contact: Fair Psychomotor Activity: Normal Behavior: Cooperative Speech: Clear AFFECT: Appropriate Mood: Irritable Though Process: Circumstantial Thought Content: Hallucinations Suicidal: No Homicidal: No On 72 hour hold: No Orientation: x3 Cognition: Alert Insight: Impared Judgement: Impared Laboratory Results Laboratory Tests Test 05/22/17 05:14 White Blood Count 7.710^3/ul Red Blood Count 4.4510^6/ul Hemoglobin 13.8g/dl Hematocrit 41.3% Mean Corpuscular Volume 92.8fl Mean Corpuscular Hemoglobin 31.0pg Mean Corpuscular Hemoglobin Concent 33.4g/dl Red Cell Distribution Width 13.2% Platelet Count 40110^3/UL Mean Platelet Volume 10.9fl Neutrophils % 40.5% Lymphocytes % 45.3% Monocytes % 10.2% Eosinophils % 2.6% Basophils % 0.9% Nucleated Red Blood Cells % 0.0/100WBC Neutrophils # 3.110^3/ul Lymphocytes # 3.510^3/ul Monocytes # 0.810^3/ul Eosinophils # 0.210^3/ul Basophils # 0.110^3/ul Nucleated Red Blood Cells # 0.010^3/ul Sodium Level 143mmol/L Potassium Level 3.7mmol/L Chloride Level 112mmol/L Carbon Dioxide Level 22mmol/L Anion Gap 13 Blood Urea Nitrogen 30mg/dl Creatinine 2.09mg/dl Glucose Level 93mg/dl Calcium Level 9.3mg/dl Assessment and Plan Assessment/Diagnosis [place] I: Delirium, resolving. Vascular dementia by hx. [place] II: defered [place] III: Urosepsis, resolving [place] IV: moderate [place] V: gaf 30 Recommendation/Plan Medication Management Agree with current meds regime. Please monitor VPA level and NH3 level. Consider antidepressant - I would suggest to consider Remeron 7.5 mg poqhs Psychotherapy re-orient patient to reality, location, date, time person Pt. Caregiver/Family Education per BOAZ Nguyen, pt's family is willing to take him home and has no concerns about the statements he made while confused. Please re-confirm with the family and document. Follow-up/Disposition If pt is medically stable he can be discharged home or to SNF; if pt will continue his treatment please request psych eval prior to discharge. [id number] Recommendation: CESAR PÉREZ MD May 23, 2017 16:17
[2017-05-23 20:00] VITALS: BP 152/87; RESP 18
[2017-05-23] MEDS: NIFEdipine (XL) 30 MG TAB PO SCH (21:38)
[2017-05-23] MEDS: FAMOTIDINE 20 MG TAB PO SCH (21:38)
[2017-05-23] MEDS: ATORVASTATIN 10 MG TAB PO SCH (21:38)
[2017-05-24 02:00] VITALS: BP 132/70; RESP 18
[2017-05-24 06:24] LABS: BASOPHIL # 0.1 10^3/ul (0.0-0.1); BASOPHILS % 1.1 % (0.0-2.0); EOSINOPHILS # 0.1 10^3/ul (0.0-0.5); HEMATOCRIT 40.2 % (42.0-52.0); HEMOGLOBIN 13.6 g/dl (14.0-18.0); LYMPHOCYTES # 2.8 10^3/ul (0.8-2.9); LYMPHOCYTES % 38.5 % (15.0-51.0); MEAN CORPUSCULAR HEMOGLOBIN 31.3 pg (29.0-33.0); MEAN CORPUSCULAR HGB CONC 33.8 g/dl (32.0-37.0); MEAN CORPUSCULAR VOLUME 92.4 fl (82.0-101.0); MONOCYTE # 0.8 10^3/ul (0.3-0.9); MONOCYTES % 11.5 % (0.0-11.0); NEUTROPHIL # 3.4 10^3/ul (1.6-7.5); NEUTROPHILS % 47.6 % (39.0-77.0); PLATELET COUNT 242 10^3/UL (140-415); RED BLOOD COUNT 4.35 10^6/ul (4.70-6.10); RED CELL DISTRIBUTION WIDTH 13.1 % (11.5-14.5); WHITE BLOOD COUNT 7.2 10^3/ul (4.8-10.8)
[2017-05-24 06:45] LABS: INR 0.97; PROTIME 12.9 Sec (12.2-14.2)
[2017-05-24 06:51] LABS: PARTIAL THROMBOPLASTIN TIME 33.4 Sec (25.0-35.0)
[2017-05-24 06:58] LABS: CALCIUM 9.2 mg/dl (8.4-10.2); CREATININE 2.32 mg/dl (0.61-1.24); POTASSIUM 3.5 mmol/L (3.5-5.1)
[2017-05-24 07:54] VITALS: BP 143/85; RESP 14
[2017-05-24] MEDS: DIVALPROEX (ER) 250 MG TAB PO SCH ×2 (09:50→22:05)
[2017-05-24] MEDS: QUETIAPINE 100 MG TAB PO SCH ×2 (09:50→22:06)
[2017-05-24] MEDS: DONEPEZIL 10 MG TAB PO SCH (09:50)
[2017-05-24] MEDS: ASCORBIC ACID 500 MG TAB PO SCH (09:50)
[2017-05-24] MEDS: AMLODIPINE 10 MG TAB PO SCH (09:51)
[2017-05-24] MEDS: METOPROLOL 100 MG TAB GTB SCH ×2 (09:51→22:06)
[2017-05-24] MEDS: ENOXAPARIN 30 MG/0.3 ML SYG SC SCH (09:58)
--- NOTE | 2017-05-24 11:01 | PN ---
Date/Time of Note Date/Time of Note DATE: 05/24/17 TIME: 11:00 Assessment/Plan VTE Prophylaxis VTE Prophylaxis Intervention: other Lines/Catheters IV Catheter Type (from Nrs): Saline Lock Urinary Cath still in place: Yes Reason Cath still needed: skin wounds contaminated by urine Assessment/Plan Chief Complaint/Hosp Course 1) cystitis - off antibiotics 2) renal insufficiency - follow BUN/Cr 3) diabetes - monitor blood sugar 4) depression - cleared per psychiatry Problems: Subjective 24 Hr Interval Summary Free Text/Dictation Patient has no complaints Exam/Review of Systems Vital Signs Vitals Vital Signs Date Time Temp Pulse Resp B/P Pulse Ox O2 Delivery O2 Flow Rate FiO2 05/24/17 07:54 98.5 68 14 143/85 98 Intake and Output 05/23/17 05/23/17 05/24/17 15:00 23:00 07:00 Intake Total 400 ml 550 ml Output Total 200 ml Balance 200 ml 550 ml Exam Constitutional: well developed Head: atraumatic, normocephalic Neck: supple Respiratory: clear to auscultation Cardiovascular: regular rate and rhythm Gastrointestinal: non-tender, soft Extremities: normal pulses Results Result Diagram: 05/24/17 0507 05/24/17 0507 Results 24 hrs Laboratory Tests Test 05/24/17 05:07 White Blood Count 7.2 Red Blood Count 4.35 L Hemoglobin 13.6 L Hematocrit 40.2 L Mean Corpuscular Volume 92.4 Mean Corpuscular Hemoglobin 31.3 Mean Corpuscular Hemoglobin Concent 33.8 Red Cell Distribution Width 13.1 Platelet Count 242 Mean Platelet Volume 11.0 H Neutrophils % 47.6 Lymphocytes % 38.5 Monocytes % 11.5 H Eosinophils % 1.0 Basophils % 1.1 Nucleated Red Blood Cells % 0.0 Neutrophils # 3.4 Lymphocytes # 2.8 Monocytes # 0.8 Eosinophils # 0.1 Basophils # 0.1 Nucleated Red Blood Cells # 0.0 Prothrombin Time 12.9 Prothrombin Time Ratio 1.0 INR International Normalized Ratio 0.97 Activated Partial Thromboplast Time 33.4 Sodium Level 139 Potassium Level 3.5 Chloride Level 114 H Carbon Dioxide Level 22 Anion Gap 7 L Blood Urea Nitrogen 35 H Creatinine 2.32 H Glucose Level 124 Calcium Level 9.2 Medications Medications Current Medications Quetiapine Fumarate (Seroquel) 100 mg BID PO Last administered on 05/24/17 09 :50; Admin Dose 100 MG; Start 05/12/17 at 21:00 Ascorbic Acid (Vitamin C) 500 mg DAILY PO Last administered on 05/24/17 09:50 ; Admin Dose 500 MG; Start 05/13/17 at 09:00 Atorvastatin Calcium (Lipitor) 10 mg QHS PO Last administered on 05/23/17 21: 38; Admin Dose 10 MG; Start 05/12/17 at 21:00 Donepezil HCl (Aricept) 10 mg DAILY PO Last administered on 05/24/17 09:50; Admin Dose 10 MG; Start 05/13/17 at 09:00 Metoprolol Tartrate (Lopressor) 100 mg BID GTB Last administered on 05/24/17 09:51; Admin Dose 100 MG; Start 05/12/17 at 21:00 Hydralazine HCl (Apresoline) 10 mg Q4H PRN IV SBP>170 Last administered on 08:25; Admin Dose 10 MG; Start 05/12/17 at 15:30 Ondansetron HCl (Zofran Inj) 4 mg Q6H PRN IV NAUSEA AND/OR VOMITING; Start 05/12/17 at 15:30 Acetaminophen (Tylenol Tab) 650 mg Q6H PRN PO PAIN LEVEL 1-3 OR FEVER Last administered on 05/14/17 11:18; Admin Dose 650 MG; Start 05/12/17 at 15:30 Docusate Sodium (Colace) 100 mg Q12H PRN PO CONSTIPATION; Start 05/12/17 at 15: 30 Enoxaparin Sodium (Lovenox) 30 mg DAILY SC Last administered on 05/24/17 09: 58; Admin Dose 30 MG; Start 05/13/17 at 09:00 Famotidine (Pepcid) 20 mg Q24H PO Last administered on 05/23/17 21:38; Admin Dose 20 MG; Start 05/12/17 at 21:00 Lorazepam (Ativan) 0.5 mg Q2H PRN IV AGITATION Last administered on 05/22/17 22:53; Admin Dose 0.5 MG; Start 05/16/17 at 00:00 Divalproex Sodium (Depakote Er) 750 mg BID PO Last administered on 05/24/17 09:50; Admin Dose 750 MG; Start 05/16/17 at 21:00 Nifedipine (Procardia Xl) 30 mg QHS PO Last administered on 05/23/17 21:38; Admin Dose 30 MG; Start 05/20/17 at 21:00 Amlodipine Besylate (Norvasc) 10 mg DAILY PO Last administered on 05/24/17 09 :51; Admin Dose 10 MG; Start 05/21/17 at 09:00 DONNA COLEMAN May 24, 2017 11:01
--- NOTE | 2017-05-24 12:31 | CONS ---
Date/Time of Note Date/Time of Note DATE: 05/24/17 TIME: 12:31 Assessment/Plan Assessment/Plan Chief Complaint/Hosp Course ID PROGRESS NOTE CURRENT ABX: DAY # 2 = OFF ABX 24H INTERVAL SUMMARY * Resting comfortably w/eyes closed awakens to verbal stimuli, no complaints * No fevers, WBC stable, VSS * URINE CULTURE Final Organism 1 ESCHERICHIA COLI COLONY COUNT >100,000 CFU/ml Organism 2 ENTEROCOCCUS SPECIES COLONY COUNT >100,000 CFU/ml Organism 3 METHICILLIN RESISTANT S.AUREUS COLONY COUNT 50,000 - 60,000 CFU/ml Organism 4 CASEY ALBICANS COLONY COUNT 50,000 - 60,000 CFU/ml Physical Exam Physical Exam Constitutional: VSS, NAD HEENT: Unremarkable Neck: Supple, full ROM Respiratory: Equal chest rise bilaterally, without dyspnea on observation Cardiovascular: nl pulses, regular rate and rhythm Gastrointestinal: Soft, NT, suprapubic Extremities: Warm ID ASSESSMENT 66 yo M w/PMHx CVA w/left side weakness admit with: 1. Acute encephalopathy - likely toxic metabolic due to multidrug resistant urinary tract infection. 2. Chronic suprapubic catheter-> Neurogenic bladder 3. Chronic kidney disease. 4. Diabetes. ABX ALLERGIES: KNDA CURRENT ABX: DAY # 2 = OFF ABX ID RECOMMENDATIONS 1. Continue to monitor off ABX, may DC OFF ABX when cleared by primary ]. Problems: Consultation Date/Type/Reason Admit Date/Time May 12, 2017 at 10:53 Initial Consult Date 05/12/17 Type of Consultation: ID Referring Provider: VANESSA LOPES MD Exam/Review of Systems Vital Signs Vitals Vital Signs Date Time Temp Pulse Resp B/P Pulse Ox O2 Delivery O2 Flow Rate FiO2 05/24/17 07:54 98.5 68 14 143/85 98 Intake and Output 05/23/17 05/23/17 05/24/17 15:00 23:00 07:00 Intake Total 400 ml 550 ml Output Total 200 ml Balance 200 ml 550 ml Results Result Diagram: 05/24/17 0507 05/24/17 0507 Results 24 hrs Laboratory Tests Test 05/24/17 05:07 White Blood Count 7.2 Red Blood Count 4.35 L Hemoglobin 13.6 L Hematocrit 40.2 L Mean Corpuscular Volume 92.4 Mean Corpuscular Hemoglobin 31.3 Mean Corpuscular Hemoglobin Concent 33.8 Red Cell Distribution Width 13.1 Platelet Count 242 Mean Platelet Volume 11.0 H Neutrophils % 47.6 Lymphocytes % 38.5 Monocytes % 11.5 H Eosinophils % 1.0 Basophils % 1.1 Nucleated Red Blood Cells % 0.0 Neutrophils # 3.4 Lymphocytes # 2.8 Monocytes # 0.8 Eosinophils # 0.1 Basophils # 0.1 Nucleated Red Blood Cells # 0.0 Prothrombin Time 12.9 Prothrombin Time Ratio 1.0 INR International Normalized Ratio 0.97 Activated Partial Thromboplast Time 33.4 Sodium Level 139 Potassium Level 3.5 Chloride Level 114 H Carbon Dioxide Level 22 Anion Gap 7 L Blood Urea Nitrogen 35 H Creatinine 2.32 H Glucose Level 124 Calcium Level 9.2 Medications Medications Current Medications Quetiapine Fumarate (Seroquel) 100 mg BID PO Last administered on 05/24/17 09 :50; Admin Dose 100 MG; Start 05/12/17 at 21:00 Ascorbic Acid (Vitamin C) 500 mg DAILY PO Last administered on 05/24/17 09:50 ; Admin Dose 500 MG; Start 05/13/17 at 09:00 Atorvastatin Calcium (Lipitor) 10 mg QHS PO Last administered on 05/23/17 21: 38; Admin Dose 10 MG; Start 05/12/17 at 21:00 Donepezil HCl (Aricept) 10 mg DAILY PO Last administered on 05/24/17 09:50; Admin Dose 10 MG; Start 05/13/17 at 09:00 Metoprolol Tartrate (Lopressor) 100 mg BID GTB Last administered on 05/24/17 09:51; Admin Dose 100 MG; Start 05/12/17 at 21:00 Hydralazine HCl (Apresoline) 10 mg Q4H PRN IV SBP>170 Last administered on 08:25; Admin Dose 10 MG; Start 05/12/17 at 15:30 Ondansetron HCl (Zofran Inj) 4 mg Q6H PRN IV NAUSEA AND/OR VOMITING; Start 05/12/17 at 15:30 Acetaminophen (Tylenol Tab) 650 mg Q6H PRN PO PAIN LEVEL 1-3 OR FEVER Last administered on 05/14/17 11:18; Admin Dose 650 MG; Start 05/12/17 at 15:30 Docusate Sodium (Colace) 100 mg Q12H PRN PO CONSTIPATION; Start 05/12/17 at 15: 30 Enoxaparin Sodium (Lovenox) 30 mg DAILY SC Last administered on 05/24/17 09: 58; Admin Dose 30 MG; Start 05/13/17 at 09:00 Famotidine (Pepcid) 20 mg Q24H PO Last administered on 05/23/17 21:38; Admin Dose 20 MG; Start 05/12/17 at 21:00 Lorazepam (Ativan) 0.5 mg Q2H PRN IV AGITATION Last administered on 05/22/17 22:53; Admin Dose 0.5 MG; Start 05/16/17 at 00:00 Divalproex Sodium (Depakote Er) 750 mg BID PO Last administered on 05/24/17 09:50; Admin Dose 750 MG; Start 05/16/17 at 21:00 Nifedipine (Procardia Xl) 30 mg QHS PO Last administered on 05/23/17 21:38; Admin Dose 30 MG; Start 05/20/17 at 21:00 Amlodipine Besylate (Norvasc) 10 mg DAILY PO Last administered on 05/24/17 09 :51; Admin Dose 10 MG; Start 05/21/17 at 09:00 NIKA MANLEY NP May 24, 2017 12:31
--- NOTE | 2017-05-24 13:55 | CONS ---
Date/Time of Note Date/Time of Note DATE: 05/24/17 TIME: 13:50 Assessment/Plan Assessment/Plan Additional Assessment/Plan 1. acute on chronic renal failure due to ATN from sepsis and prerenal azotemia- Improving with IVF hydration 2. sepsis due to UTI - Urine cx grew E/coli,. Enterococcus, MRSA and filipe 3. 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 HTN 5. HL 6. H/o CVA with residual left weakness Plan : All antibiotics and antifungals stopped Cr today - 2.32, no indicatin for dialysis at this time, discussed with patient daughter at bedside yesterday pt previously had a fulll CKD work up and his Renal US on last admission in 2016 showed Bilateral cortical thinning and increased echogenicity compatible with chronic medical renal disease. No evidence of hydronephrosis, nephrolithiasis or obstructive uropathy. continue Suprapubic Catheter care, will follow up Dre Samuels Consultation Date/Type/Reason Admit Date/Time May 12, 2017 at 10:53 Initial Consult Date 05/12/17 Type of Consultation: NEPHROLOGY Referring Provider: VANESSA LOPES MD 24 HR Interval Summary Free Text/Dictation resting, nad, pleasantly confused, seems comfortable, Daughter at bed side- all Qs answered.dw staff Detailed Summary Respiratory: no complaints Cardiovascular: no complaints Gastrointestinal: no complaints Genitourinary: no complaints Musculoskeletal: no complaints Exam/Review of Systems Vital Signs Vitals Vital Signs Date Time Temp Pulse Resp B/P Pulse Ox O2 Delivery O2 Flow Rate FiO2 05/24/17 07:54 98.5 68 14 143/85 98 Intake and Output 05/23/17 05/23/17 05/24/17 15:00 23:00 07:00 Intake Total 400 ml 550 ml Output Total 200 ml Balance 200 ml 550 ml Exam Constitutional: alert, well developed Respiratory: clear to auscultation, normal air movement Cardiovascular: nl pulses, regular rate and rhythm Gastrointestinal: non-tender, soft Musculoskeletal: nl extremities to inspection Extremities: normal pulses Neurological: nl speech, other (confused, alert to name, answers simple Qs) Results Result Diagram: 05/24/17 0507 05/24/17 0507 Results 24 hrs Laboratory Tests Test 05/24/17 05:07 White Blood Count 7.2 Red Blood Count 4.35 L Hemoglobin 13.6 L Hematocrit 40.2 L Mean Corpuscular Volume 92.4 Mean Corpuscular Hemoglobin 31.3 Mean Corpuscular Hemoglobin Concent 33.8 Red Cell Distribution Width 13.1 Platelet Count 242 Mean Platelet Volume 11.0 H Neutrophils % 47.6 Lymphocytes % 38.5 Monocytes % 11.5 H Eosinophils % 1.0 Basophils % 1.1 Nucleated Red Blood Cells % 0.0 Neutrophils # 3.4 Lymphocytes # 2.8 Monocytes # 0.8 Eosinophils # 0.1 Basophils # 0.1 Nucleated Red Blood Cells # 0.0 Prothrombin Time 12.9 Prothrombin Time Ratio 1.0 INR International Normalized Ratio 0.97 Activated Partial Thromboplast Time 33.4 Sodium Level 139 Potassium Level 3.5 Chloride Level 114 H Carbon Dioxide Level 22 Anion Gap 7 L Blood Urea Nitrogen 35 H Creatinine 2.32 H Glucose Level 124 Calcium Level 9.2 Medications Medications Current Medications Quetiapine Fumarate (Seroquel) 100 mg BID PO Last administered on 05/24/17 09 :50; Admin Dose 100 MG; Start 05/12/17 at 21:00 Ascorbic Acid (Vitamin C) 500 mg DAILY PO Last administered on 05/24/17 09:50 ; Admin Dose 500 MG; Start 05/13/17 at 09:00 Atorvastatin Calcium (Lipitor) 10 mg QHS PO Last administered on 05/23/17 21: 38; Admin Dose 10 MG; Start 05/12/17 at 21:00 Donepezil HCl (Aricept) 10 mg DAILY PO Last administered on 05/24/17 09:50; Admin Dose 10 MG; Start 05/13/17 at 09:00 Metoprolol Tartrate (Lopressor) 100 mg BID GTB Last administered on 05/24/17 09:51; Admin Dose 100 MG; Start 05/12/17 at 21:00 Hydralazine HCl (Apresoline) 10 mg Q4H PRN IV SBP>170 Last administered on 08:25; Admin Dose 10 MG; Start 05/12/17 at 15:30 Ondansetron HCl (Zofran Inj) 4 mg Q6H PRN IV NAUSEA AND/OR VOMITING; Start 05/12/17 at 15:30 Acetaminophen (Tylenol Tab) 650 mg Q6H PRN PO PAIN LEVEL 1-3 OR FEVER Last administered on 05/14/17 11:18; Admin Dose 650 MG; Start 05/12/17 at 15:30 Docusate Sodium (Colace) 100 mg Q12H PRN PO CONSTIPATION; Start 05/12/17 at 15: 30 Enoxaparin Sodium (Lovenox) 30 mg DAILY SC Last administered on 05/24/17 09: 58; Admin Dose 30 MG; Start 05/13/17 at 09:00 Famotidine (Pepcid) 20 mg Q24H PO Last administered on 05/23/17 21:38; Admin Dose 20 MG; Start 05/12/17 at 21:00 Lorazepam (Ativan) 0.5 mg Q2H PRN IV AGITATION Last administered on 05/22/17 22:53; Admin Dose 0.5 MG; Start 05/16/17 at 00:00 Divalproex Sodium (Depakote Er) 750 mg BID PO Last administered on 05/24/17 09:50; Admin Dose 750 MG; Start 05/16/17 at 21:00 Nifedipine (Procardia Xl) 30 mg QHS PO Last administered on 05/23/17 21:38; Admin Dose 30 MG; Start 05/20/17 at 21:00 Amlodipine Besylate (Norvasc) 10 mg DAILY PO Last administered on 05/24/17 09 :51; Admin Dose 10 MG; Start 05/21/17 at 09:00 PANDA SKAGGS May 24, 2017 13:55
[2017-05-24 20:15] VITALS: BP 101/64; RESP 16
[2017-05-24] MEDS: NIFEdipine (XL) 30 MG TAB PO SCH (22:06)
[2017-05-24] MEDS: ATORVASTATIN 10 MG TAB PO SCH (22:06)
[2017-05-24] MEDS: FAMOTIDINE 20 MG TAB PO SCH (22:06)
[2017-05-25 02:34] VITALS: BP 121/71; RESP 53
[2017-05-25 06:02] LABS: BASOPHIL # 0.1 10^3/ul (0.0-0.1); BASOPHILS % 1.5 % (0.0-2.0); EOSINOPHILS # 0.1 10^3/ul (0.0-0.5); EOSINOPHILS % 2.4 % (0.0-7.0); HEMOGLOBIN 12.1 g/dl (14.0-18.0); LYMPHOCYTES # 3.4 10^3/ul (0.8-2.9); LYMPHOCYTES % 62.8 % (15.0-51.0); MEAN CORPUSCULAR HEMOGLOBIN 30.6 pg (29.0-33.0); MEAN CORPUSCULAR HGB CONC 32.7 g/dl (32.0-37.0); MEAN CORPUSCULAR VOLUME 93.4 fl (82.0-101.0); MEAN PLATELET VOLUME 10.8 fl (7.4-10.4); MONOCYTE # 0.5 10^3/ul (0.3-0.9); MONOCYTES % 9.3 % (0.0-11.0); NEUTROPHIL # 1.3 10^3/ul (1.6-7.5); NEUTROPHILS % 23.5 % (39.0-77.0); PLATELET COUNT 207 10^3/UL (140-415); RED BLOOD COUNT 3.96 10^6/ul (4.70-6.10); RED CELL DISTRIBUTION WIDTH 13.3 % (11.5-14.5); WHITE BLOOD COUNT 5.5 10^3/ul (4.8-10.8)
[2017-05-25 06:52] LABS: CALCIUM 8.7 mg/dl (8.4-10.2); CREATININE 2.53 mg/dl (0.61-1.24); POTASSIUM 3.7 mmol/L (3.5-5.1)
[2017-05-25 08:19] VITALS: BP 121/73; RESP 16
[2017-05-25] MEDS: METOPROLOL 100 MG TAB GTB SCH ×2 (09:00→21:07)
[2017-05-25 09:22] VITALS: BP 140/80; PULSE 59; RESP 18
[2017-05-25] MEDS: QUETIAPINE 100 MG TAB PO SCH ×2 (09:23→21:07)
[2017-05-25] MEDS: DONEPEZIL 10 MG TAB PO SCH (09:23)
[2017-05-25] MEDS: ASCORBIC ACID 500 MG TAB PO SCH (09:23)
[2017-05-25] MEDS: DIVALPROEX (ER) 250 MG TAB PO SCH ×2 (09:24→21:07)
[2017-05-25] MEDS: AMLODIPINE 10 MG TAB PO SCH (09:24)
[2017-05-25] MEDS: ENOXAPARIN 30 MG/0.3 ML SYG SC SCH (09:30)
--- NOTE | 2017-05-25 11:57 | PN ---
Date/Time of Note Date/Time of Note DATE: 05/25/17 TIME: 11:56 Assessment/Plan VTE Prophylaxis VTE Prophylaxis Intervention: other Lines/Catheters IV Catheter Type (from Nrs): Saline Lock Urinary Cath still in place: Yes Reason Cath still needed: skin wounds contaminated by urine Assessment/Plan Chief Complaint/Hosp Course 1) cystitis - off antibiotics 2) renal insufficiency - follow BUN/Cr 3) diabetes - monitor blood sugar 4) depression - cleared per psychiatry Problems: Subjective 24 Hr Interval Summary Free Text/Dictation Patient is doing ok Exam/Review of Systems Vital Signs Vitals Vital Signs Date Time Temp Pulse Resp B/P Pulse Ox O2 Delivery O2 Flow Rate FiO2 05/25/17 09:22 97.7 59 18 140/80 98 Room Air Intake and Output 05/24/17 05/24/17 05/25/17 15:00 23:00 07:00 Intake Total 660 ml 200 ml Output Total 800 ml Balance -140 ml 200 ml Exam Constitutional: well developed Head: atraumatic, normocephalic Neck: supple Respiratory: clear to auscultation Cardiovascular: regular rate and rhythm Gastrointestinal: non-tender, soft Extremities: normal pulses Results Result Diagram: 05/25/17 0507 05/25/17 0507 Results 24 hrs Laboratory Tests Test 05/25/17 05:07 White Blood Count 5.5 # Red Blood Count 3.96 L Hemoglobin 12.1 L Hematocrit 37.0 L Mean Corpuscular Volume 93.4 Mean Corpuscular Hemoglobin 30.6 Mean Corpuscular Hemoglobin Concent 32.7 Red Cell Distribution Width 13.3 Platelet Count 207 Mean Platelet Volume 10.8 H Neutrophils % 23.5 L Lymphocytes % 62.8 H Monocytes % 9.3 Eosinophils % 2.4 Basophils % 1.5 Nucleated Red Blood Cells % 0.0 Neutrophils # 1.3 L Lymphocytes # 3.4 H Monocytes # 0.5 Eosinophils # 0.1 Basophils # 0.1 Nucleated Red Blood Cells # 0.0 Sodium Level 146 H Potassium Level 3.7 Chloride Level 113 H Carbon Dioxide Level 23 Anion Gap 14 Blood Urea Nitrogen 35 H Creatinine 2.53 H Glucose Level 85 Calcium Level 8.7 Medications Medications Current Medications Quetiapine Fumarate (Seroquel) 100 mg BID PO Last administered on 05/25/17t 09 :23; Admin Dose 100 MG; Start 05/12/17 at 21:00 Ascorbic Acid (Vitamin C) 500 mg DAILY PO Last administered on 05/25/17 09:23 ; Admin Dose 500 MG; Start 05/13/17 at 09:00 Atorvastatin Calcium (Lipitor) 10 mg QHS PO Last administered on 05/24/17 22: 06; Admin Dose 10 MG; Start 05/12/17 at 21:00 Donepezil HCl (Aricept) 10 mg DAILY PO Last administered on 05/25/17 09:23; Admin Dose 10 MG; Start 05/13/17 at 09:00 Metoprolol Tartrate (Lopressor) 100 mg BID GTB Last administered on 05/24/17 22:06; Admin Dose 100 MG; Start 05/12/17 at 21:00 Hydralazine HCl (Apresoline) 10 mg Q4H PRN IV SBP>170 Last administered on 08:25; Admin Dose 10 MG; Start 05/12/17 at 15:30 Ondansetron HCl (Zofran Inj) 4 mg Q6H PRN IV NAUSEA AND/OR VOMITING; Start 05/12/17 at 15:30 Acetaminophen (Tylenol Tab) 650 mg Q6H PRN PO PAIN LEVEL 1-3 OR FEVER Last administered on 05/14/17 11:18; Admin Dose 650 MG; Start 05/12/17 at 15:30 Docusate Sodium (Colace) 100 mg Q12H PRN PO CONSTIPATION; Start 05/12/17 at 15: 30 Enoxaparin Sodium (Lovenox) 30 mg DAILY SC Last administered on 05/25/17 09: 30; Admin Dose 30 MG; Start 05/13/17 at 09:00 Famotidine (Pepcid) 20 mg Q24H PO Last administered on 05/24/17 22:06; Admin Dose 20 MG; Start 05/12/17 at 21:00 Lorazepam (Ativan) 0.5 mg Q2H PRN IV AGITATION Last administered on 05/22/17 22:53; Admin Dose 0.5 MG; Start 05/16/17 at 00:00 Divalproex Sodium (Depakote Er) 750 mg BID PO Last administered on 05/25/17 09:24; Admin Dose 750 MG; Start 05/16/17 at 21:00 Nifedipine (Procardia Xl) 30 mg QHS PO Last administered on 05/24/17 22:06; Admin Dose 30 MG; Start 05/20/17 at 21:00 Amlodipine Besylate (Norvasc) 10 mg DAILY PO Last administered on 05/25/17 09 :24; Admin Dose 10 MG; Start 05/21/17 at 09:00 DONNA COLEMAN May 25, 2017 11:57
--- NOTE | 2017-05-25 12:43 | CONS ---
Date/Time of Note Date/Time of Note DATE: 05/25/17 TIME: 12:39 Assessment/Plan Assessment/Plan Additional Assessment/Plan 1. acute on chronic renal failure due to ATN from sepsis and prerenal azotemia- Improving with IVF hydration 2. sepsis due to UTI - Urine cx grew E/coli,. Enterococcus, MRSA and filipe 3. 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 HTN 5. HL 6. H/o CVA with residual left weakness Plan : -All antibiotics and antifungals stopped -Cr today - 2. 53 today -pt previously had a fulll CKD work up and his Renal US on last admission in 2016 showed Bilateral cortical thinning and increased echogenicity compatible with chronic medical renal disease. No evidence of hydronephrosis, nephrolithiasis or obstructive uropathy. -continue Suprapubic Catheter care, -will follow up -Dre Samuels Consultation Date/Type/Reason Admit Date/Time May 12, 2017 at 10:53 Initial Consult Date 05/12/17 Type of Consultation: NEPHROLOGY Referring Provider: VANESSA LOPES MD Detailed Summary Respiratory: no complaints Cardiovascular: no complaints Gastrointestinal: no complaints Genitourinary: no complaints Musculoskeletal: no complaints Exam/Review of Systems Vital Signs Vitals Vital Signs Date Time Temp Pulse Resp B/P Pulse Ox O2 Delivery O2 Flow Rate FiO2 05/25/17 09:22 97.7 59 18 140/80 98 Room Air Intake and Output 05/24/17 05/24/17 05/25/17 15:00 23:00 07:00 Intake Total 660 ml 200 ml Output Total 800 ml Balance -140 ml 200 ml Exam Constitutional: alert, oriented (to name only), well developed Psych: nl mood/affect Respiratory: clear to auscultation, normal air movement Cardiovascular: nl pulses, other (s1s2) Gastrointestinal: non-tender, soft Musculoskeletal: nl extremities to inspection Extremities: normal pulses Neurological: nl mental status, nl speech Results Result Diagram: 05/25/17 0507 05/25/17 0507 Results 24 hrs Laboratory Tests Test 05/25/17 05:07 White Blood Count 5.5 # Red Blood Count 3.96 L Hemoglobin 12.1 L Hematocrit 37.0 L Mean Corpuscular Volume 93.4 Mean Corpuscular Hemoglobin 30.6 Mean Corpuscular Hemoglobin Concent 32.7 Red Cell Distribution Width 13.3 Platelet Count 207 Mean Platelet Volume 10.8 H Neutrophils % 23.5 L Lymphocytes % 62.8 H Monocytes % 9.3 Eosinophils % 2.4 Basophils % 1.5 Nucleated Red Blood Cells % 0.0 Neutrophils # 1.3 L Lymphocytes # 3.4 H Monocytes # 0.5 Eosinophils # 0.1 Basophils # 0.1 Nucleated Red Blood Cells # 0.0 Sodium Level 146 H Potassium Level 3.7 Chloride Level 113 H Carbon Dioxide Level 23 Anion Gap 14 Blood Urea Nitrogen 35 H Creatinine 2.53 H Glucose Level 85 Calcium Level 8.7 Medications Medications Current Medications Quetiapine Fumarate (Seroquel) 100 mg BID PO Last administered on 05/25/17 09 :23; Admin Dose 100 MG; Start 05/12/17 at 21:00 Ascorbic Acid (Vitamin C) 500 mg DAILY PO Last administered on 05/25/17 09:23 ; Admin Dose 500 MG; Start 05/13/17 at 09:00 Atorvastatin Calcium (Lipitor) 10 mg QHS PO Last administered on 05/24/17 22: 06; Admin Dose 10 MG; Start 05/12/17 at 21:00 Donepezil HCl (Aricept) 10 mg DAILY PO Last administered on 05/25/17 09:23; Admin Dose 10 MG; Start 05/13/17 at 09:00 Metoprolol Tartrate (Lopressor) 100 mg BID GTB Last administered on 05/24/17 22:06; Admin Dose 100 MG; Start 05/12/17 at 21:00 Hydralazine HCl (Apresoline) 10 mg Q4H PRN IV SBP>170 Last administered on 08:25; Admin Dose 10 MG; Start 05/12/17 at 15:30 Ondansetron HCl (Zofran Inj) 4 mg Q6H PRN IV NAUSEA AND/OR VOMITING; Start 05/12/17 at 15:30 Acetaminophen (Tylenol Tab) 650 mg Q6H PRN PO PAIN LEVEL 1-3 OR FEVER Last administered on 05/14/17 11:18; Admin Dose 650 MG; Start 05/12/17 at 15:30 Docusate Sodium (Colace) 100 mg Q12H PRN PO CONSTIPATION; Start 05/12/17 at 15: 30 Enoxaparin Sodium (Lovenox) 30 mg DAILY SC Last administered on 05/25/17 09: 30; Admin Dose 30 MG; Start 05/13/17 at 09:00 Famotidine (Pepcid) 20 mg Q24H PO Last administered on 05/24/17 22:06; Admin Dose 20 MG; Start 05/12/17 at 21:00 Lorazepam (Ativan) 0.5 mg Q2H PRN IV AGITATION Last administered on 05/22/17 22:53; Admin Dose 0.5 MG; Start 05/16/17 at 00:00 Divalproex Sodium (Depakote Er) 750 mg BID PO Last administered on 05/25/17 09:24; Admin Dose 750 MG; Start 05/16/17 at 21:00 Nifedipine (Procardia Xl) 30 mg QHS PO Last administered on 05/24/17 22:06; Admin Dose 30 MG; Start 05/20/17 at 21:00 Amlodipine Besylate (Norvasc) 10 mg DAILY PO Last administered on 05/25/17 09 :24; Admin Dose 10 MG; Start 05/21/17 at 09:00 PANDA SKAGGS May 25, 2017 12:43
--- NOTE | 2017-05-25 13:59 | CONS ---
Date/Time of Note Date/Time of Note DATE: 05/25/17 TIME: 13:52 Consultation Date/Type/Reason Admit Date/Time May 12, 2017 at 10:53 Initial Consult Date SUBJECTIVE: 66 y/o male being treated for acute on chronic renal failure and sepsis. Currently off of IV antbx and unifungal secondary to elevated creat. No acute changes overnight. Awake, Alert. No fevers, looks comfortable. VS: 140/80 P:59 R:18 SO2:98% T:97.7 Labs: WBC=5.5. H&H-stable. BUN-35, Creat-2.53 INDWELLINGS: Suprapubic catheter. PHYSICAL EXAMINATION: GENERAL: This is a well-developed, fragile, elderly man who is in no distress. HEENT: Head atraumatic, normocephalic. Sclerae anicteric. Buccal mucosa dry. NECK: Supple. CHEST: Rise symmetrical. Breath sounds diminished to bases. HEART: S1, S2. ABDOMEN: Soft, bowel tones present. EXTREMITIES: No cyanosis. ASSESSMENT: 1. Multidrug resistant urinary tract infection. 2. Acute encephalopathy. 3. Acute on chronic kidney failure. 4. Diabetes. 5. History of CVA with Lt side weakness. 6. Chronic suprapubic catheter. Plan: Remains stable, off abx. Monitor Labs. Renal recommendations. Type of Consultation: ID Referring Provider: VANESSA LOPES MD Exam/Review of Systems Vital Signs Vitals Vital Signs Date Time Temp Pulse Resp B/P Pulse Ox O2 Delivery O2 Flow Rate FiO2 05/25/17 09:22 97.7 59 18 140/80 98 Room Air Intake and Output 05/24/17 05/24/17 05/25/17 15:00 23:00 07:00 Intake Total 660 ml 200 ml Output Total 800 ml Balance -140 ml 200 ml Results Result Diagram: 05/25/17 0507 05/25/17 0507 Results 24 hrs Laboratory Tests Test 05/25/17 05:07 White Blood Count 5.5 # Red Blood Count 3.96 L Hemoglobin 12.1 L Hematocrit 37.0 L Mean Corpuscular Volume 93.4 Mean Corpuscular Hemoglobin 30.6 Mean Corpuscular Hemoglobin Concent 32.7 Red Cell Distribution Width 13.3 Platelet Count 207 Mean Platelet Volume 10.8 H Neutrophils % 23.5 L Lymphocytes % 62.8 H Monocytes % 9.3 Eosinophils % 2.4 Basophils % 1.5 Nucleated Red Blood Cells % 0.0 Neutrophils # 1.3 L Lymphocytes # 3.4 H Monocytes # 0.5 Eosinophils # 0.1 Basophils # 0.1 Nucleated Red Blood Cells # 0.0 Sodium Level 146 H Potassium Level 3.7 Chloride Level 113 H Carbon Dioxide Level 23 Anion Gap 14 Blood Urea Nitrogen 35 H Creatinine 2.53 H Glucose Level 85 Calcium Level 8.7 Medications Medications Current Medications Quetiapine Fumarate (Seroquel) 100 mg BID PO Last administered on 05/25/17 09 :23; Admin Dose 100 MG; Start 05/12/17 at 21:00 Ascorbic Acid (Vitamin C) 500 mg DAILY PO Last administered on 05/25/17 09:23 ; Admin Dose 500 MG; Start 05/13/17 at 09:00 Atorvastatin Calcium (Lipitor) 10 mg QHS PO Last administered on 05/24/17 22: 06; Admin Dose 10 MG; Start 05/12/17 at 21:00 Donepezil HCl (Aricept) 10 mg DAILY PO Last administered on 05/25/17 09:23; Admin Dose 10 MG; Start 05/13/17 at 09:00 Metoprolol Tartrate (Lopressor) 100 mg BID GTB Last administered on 05/24/17 22:06; Admin Dose 100 MG; Start 05/12/17 at 21:00 Hydralazine HCl (Apresoline) 10 mg Q4H PRN IV SBP>170 Last administered on 08:25; Admin Dose 10 MG; Start 05/12/17 at 15:30 Ondansetron HCl (Zofran Inj) 4 mg Q6H PRN IV NAUSEA AND/OR VOMITING; Start 05/12/17 at 15:30 Acetaminophen (Tylenol Tab) 650 mg Q6H PRN PO PAIN LEVEL 1-3 OR FEVER Last administered on 05/14/17 11:18; Admin Dose 650 MG; Start 05/12/17 at 15:30 Docusate Sodium (Colace) 100 mg Q12H PRN PO CONSTIPATION; Start 05/12/17 at 15: 30 Enoxaparin Sodium (Lovenox) 30 mg DAILY SC Last administered on 05/25/17 09: 30; Admin Dose 30 MG; Start 05/13/17 at 09:00 Famotidine (Pepcid) 20 mg Q24H PO Last administered on 05/24/17 22:06; Admin Dose 20 MG; Start 05/12/17 at 21:00 Lorazepam (Ativan) 0.5 mg Q2H PRN IV AGITATION Last administered on 05/22/17 22:53; Admin Dose 0.5 MG; Start 05/16/17 at 00:00 Divalproex Sodium (Depakote Er) 750 mg BID PO Last administered on 05/25/17 09:24; Admin Dose 750 MG; Start 05/16/17 at 21:00 Nifedipine (Procardia Xl) 30 mg QHS PO Last administered on 05/24/17 22:06; Admin Dose 30 MG; Start 05/20/17 at 21:00 Amlodipine Besylate (Norvasc) 10 mg DAILY PO Last administered on 05/25/17 09 :24; Admin Dose 10 MG; Start 05/21/17 at 09:00 JUDITH SMITH May 25, 2017 13:59
[2017-05-25 14:00] VITALS: BP 119/74; RESP 16
[2017-05-25 20:00] VITALS: BP 162/93; RESP 20
[2017-05-25] MEDS: ATORVASTATIN 10 MG TAB PO SCH (21:07)
[2017-05-25] MEDS: FAMOTIDINE 20 MG TAB PO SCH (21:07)
[2017-05-25] MEDS: NIFEdipine (XL) 30 MG TAB PO SCH (21:08)
[2017-05-26 02:00] VITALS: BP 143/79; RESP 20
[2017-05-26 05:55] LABS: BASOPHIL # 0.1 10^3/ul (0.0-0.1); BASOPHILS % 1.2 % (0.0-2.0); EOSINOPHILS # 0.1 10^3/ul (0.0-0.5); EOSINOPHILS % 1.2 % (0.0-7.0); HEMATOCRIT 40.8 % (42.0-52.0); HEMOGLOBIN 13.7 g/dl (14.0-18.0); LYMPHOCYTES # 3.4 10^3/ul (0.8-2.9); LYMPHOCYTES % 52.3 % (15.0-51.0); MEAN CORPUSCULAR HGB CONC 33.6 g/dl (32.0-37.0); MEAN CORPUSCULAR VOLUME 92.3 fl (82.0-101.0); MEAN PLATELET VOLUME 10.6 fl (7.4-10.4); MONOCYTE # 0.6 10^3/ul (0.3-0.9); MONOCYTES % 9.3 % (0.0-11.0); NEUTROPHIL # 2.3 10^3/ul (1.6-7.5); NEUTROPHILS % 35.5 % (39.0-77.0); PLATELET COUNT 218 10^3/UL (140-415); RED BLOOD COUNT 4.42 10^6/ul (4.70-6.10); RED CELL DISTRIBUTION WIDTH 12.9 % (11.5-14.5); WHITE BLOOD COUNT 6.4 10^3/ul (4.8-10.8)
[2017-05-26 06:35] LABS: CALCIUM 8.9 mg/dl (8.4-10.2); CREATININE 2.5 mg/dl (0.61-1.24); POTASSIUM 3.5 mmol/L (3.5-5.1)
[2017-05-26 07:54] VITALS: BP 155/83; RESP 18
[2017-05-26] MEDS: ASCORBIC ACID 500 MG TAB PO SCH (08:35)
[2017-05-26] MEDS: QUETIAPINE 100 MG TAB PO SCH (08:35)
[2017-05-26] MEDS: AMLODIPINE 10 MG TAB PO SCH (08:35)
[2017-05-26] MEDS: METOPROLOL 100 MG TAB GTB SCH (08:35)
[2017-05-26] MEDS: DIVALPROEX (ER) 250 MG TAB PO SCH (08:35)
[2017-05-26] MEDS: DONEPEZIL 10 MG TAB PO SCH (08:36)
[2017-05-26] MEDS: ENOXAPARIN 30 MG/0.3 ML SYG SC SCH (08:48)
--- NOTE | 2017-05-26 09:49 | CONS ---
Date/Time of Note Date/Time of Note DATE: 05/26/17 TIME: 09:47 Assessment/Plan Assessment/Plan Additional Assessment/Plan 1. acute on chronic renal failure due to ATN from sepsis and prerenal azotemia- Improving with IVF hydration 2. sepsis due to UTI - Urien cx grew E/coli,. Enterococcus, MRSA and filipe 3. 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 HTN 5. HL 6. H/o CVA with residual left weakness Plan : pt finished all antibiotics and antifungals. Cr 2.5 today, K normal HCo3 22, Na 145- no indicatin for dialysis at this time, discussed with patient daughter at bedside yesterday d/c IVF follow up with Dr.Kalpesh Watson in 1-2 week after discharge pt previously had a fulll CKD work up and his Renal US on last admission in 2016 showed Bilateral cortical thinning and increased echogenicity compatible with chronic medical renal disease. No evidence of hydronephrosis, nephrolithiasis or obstructive uropathy. continue Suprapubic Catheter care, will follow up Consultation Date/Type/Reason Admit Date/Time May 12, 2017 at 10:53 Initial Consult Date 05/12/17 Type of Consultation: NEPHROLOGY Referring Provider: VANESSA LOPES MD 24 HR Interval Summary Free Text/Dictation Cr 2.5, BP controlled with current regimen Exam/Review of Systems Vital Signs Vitals Vital Signs Date Time Temp Pulse Resp B/P Pulse Ox O2 Delivery O2 Flow Rate FiO2 05/26/17 07:54 97.7 73 18 155/83 97 05/25/17 09:22 Room Air Intake and Output 05/25/17 05/25/17 05/26/17 15:00 23:00 07:00 Intake Total 720 ml 420 ml Output Total 700 ml 1000 ml Balance 20 ml -580 ml Exam Constitutional: alert Psych: no complaints Neck: non-tender, supple Respiratory: clear to auscultation, diminished breath sounds, normal air movement Cardiovascular: nl pulses, regular rate and rhythm Gastrointestinal: non-tender, soft Musculoskeletal: muscle tone, muscle weakness, nl extremities to inspection, nl gait and stance, spine non-tender Neurological: ENG[employer] II-XII intact, nl mental status, nl speech, nl strength Results Result Diagram: 05/26/17 0535 05/26/17 0535 Results 24 hrs Laboratory Tests Test 05/26/17 05:35 White Blood Count 6.4 Red Blood Count 4.42 L Hemoglobin 13.7 L Hematocrit 40.8 L Mean Corpuscular Volume 92.3 Mean Corpuscular Hemoglobin 31.0 Mean Corpuscular Hemoglobin Concent 33.6 Red Cell Distribution Width 12.9 Platelet Count 218 Mean Platelet Volume 10.6 H Neutrophils % 35.5 L Lymphocytes % 52.3 H Monocytes % 9.3 Eosinophils % 1.2 Basophils % 1.2 Nucleated Red Blood Cells % 0.0 Neutrophils # 2.3 Lymphocytes # 3.4 H Monocytes # 0.6 Eosinophils # 0.1 Basophils # 0.1 Nucleated Red Blood Cells # 0.0 Sodium Level 145 H Potassium Level 3.5 Chloride Level 111 H Carbon Dioxide Level 22 Anion Gap 16 Blood Urea Nitrogen 35 H Creatinine 2.50 H Glucose Level 101 Calcium Level 8.9 Medications Medications Current Medications Quetiapine Fumarate (Seroquel) 100 mg BID PO Last administered on 05/26/17 08 :35; Admin Dose 100 MG; Start 05/12/17 at 21:00 Ascorbic Acid (Vitamin C) 500 mg DAILY PO Last administered on 05/26/17 08:35 ; Admin Dose 500 MG; Start 05/13/17 at 09:00 Atorvastatin Calcium (Lipitor) 10 mg QHS PO Last administered on 05/25/17 21: 07; Admin Dose 10 MG; Start 05/12/17 at 21:00 Donepezil HCl (Aricept) 10 mg DAILY PO Last administered on 05/26/17 08:36; Admin Dose 10 MG; Start 05/13/17 at 09:00 Metoprolol Tartrate (Lopressor) 100 mg BID GTB Last administered on 05/26/17 08:35; Admin Dose 100 MG; Start 05/12/17 at 21:00 Hydralazine HCl (Apresoline) 10 mg Q4H PRN IV SBP>170 Last administered on 08:25; Admin Dose 10 MG; Start 05/12/17 at 15:30 Ondansetron HCl (Zofran Inj) 4 mg Q6H PRN IV NAUSEA AND/OR VOMITING; Start 05/12/17 at 15:30 Acetaminophen (Tylenol Tab) 650 mg Q6H PRN PO PAIN LEVEL 1-3 OR FEVER Last administered on 05/14/17 11:18; Admin Dose 650 MG; Start 05/12/17 at 15:30 Docusate Sodium (Colace) 100 mg Q12H PRN PO CONSTIPATION; Start 05/12/17 at 15: 30 Enoxaparin Sodium (Lovenox) 30 mg DAILY SC Last administered on 05/26/17 08: 48; Admin Dose 30 MG; Start 05/13/17 at 09:00 Famotidine (Pepcid) 20 mg Q24H PO Last administered on 05/25/17 21:07; Admin Dose 20 MG; Start 05/12/17 at 21:00 Lorazepam (Ativan) 0.5 mg Q2H PRN IV AGITATION Last administered on 05/22/17 22:53; Admin Dose 0.5 MG; Start 05/16/17 at 00:00 Divalproex Sodium (Depakote Er) 750 mg BID PO Last administered on 05/26/17 08:35; Admin Dose 750 MG; Start 05/16/17 at 21:00 Nifedipine (Procardia Xl) 30 mg QHS PO Last administered on 05/25/17 21:08; Admin Dose 30 MG; Start 05/20/17 at 21:00 Amlodipine Besylate (Norvasc) 10 mg DAILY PO Last administered on 05/26/17 08 :35; Admin Dose 10 MG; Start 05/21/17 at 09:00 NI WATSON MD May 26, 2017 09:49
[2017-05-26 14:33] VITALS: BP 111/73; RESP 18
--- NOTE | 2017-05-26 15:52 | CONS ---
Date/Time of Note Date/Time of Note DATE: 05/26/17 TIME: 15:50 Consultation Date/Type/Reason Admit Date/Time May 12, 2017 at 10:53 Initial Consult Date SUBJECTIVE: 66 y/o male being treated for acute on chronic renal failure and sepsis. Currently off of IV antbx and unifungal secondary to elevated creat. No acute changes overnight. Awake, Alert. No fevers, looks comfortable. VS: 111/73 P:64 R:18 SO2:98% T:97.5 Labs: WBC=6.4. H&H-13.7/40.8 . BUN-35, Creat-2.50 INDWELLINGS: Suprapubic catheter. PHYSICAL EXAMINATION: GENERAL: This is a well-developed, fragile, elderly man who is in no distress. HEENT: Head atraumatic, normocephalic. Sclerae anicteric. Buccal mucosa dry. NECK: Supple. CHEST: Rise symmetrical. Breath sounds diminished to bases. HEART: S1, S2. ABDOMEN: Soft, bowel tones present. EXTREMITIES: No cyanosis. ASSESSMENT: 1. Multidrug resistant urinary tract infection. 2. Acute encephalopathy. 3. Acute on chronic kidney failure. 4. Diabetes. 5. History of CVA with Lt side weakness. 6. Chronic suprapubic catheter. Plan: Remains stable, off abx. Monitor Labs. Renal recommendations. Type of Consultation: ID Referring Provider: VANESSA LOPES MD Exam/Review of Systems Vital Signs Vitals Vital Signs Date Time Temp Pulse Resp B/P Pulse Ox O2 Delivery O2 Flow Rate FiO2 05/26/17 14:33 97.5 64 18 111/73 98 05/25/17 09:22 Room Air Intake and Output 05/25/17 05/25/17 05/26/17 15:00 23:00 07:00 Intake Total 720 ml 420 ml Output Total 700 ml 1000 ml Balance 20 ml -580 ml Results Result Diagram: 05/26/17 0535 05/26/17 0535 Results 24 hrs Laboratory Tests Test 05/26/17 05:35 White Blood Count 6.4 Red Blood Count 4.42 L Hemoglobin 13.7 L Hematocrit 40.8 L Mean Corpuscular Volume 92.3 Mean Corpuscular Hemoglobin 31.0 Mean Corpuscular Hemoglobin Concent 33.6 Red Cell Distribution Width 12.9 Platelet Count 218 Mean Platelet Volume 10.6 H Neutrophils % 35.5 L Lymphocytes % 52.3 H Monocytes % 9.3 Eosinophils % 1.2 Basophils % 1.2 Nucleated Red Blood Cells % 0.0 Neutrophils # 2.3 Lymphocytes # 3.4 H Monocytes # 0.6 Eosinophils # 0.1 Basophils # 0.1 Nucleated Red Blood Cells # 0.0 Sodium Level 145 H Potassium Level 3.5 Chloride Level 111 H Carbon Dioxide Level 22 Anion Gap 16 Blood Urea Nitrogen 35 H Creatinine 2.50 H Glucose Level 101 Calcium Level 8.9 Medications Medications Current Medications Quetiapine Fumarate (Seroquel) 100 mg BID PO Last administered on 05/26/17 08 :35; Admin Dose 100 MG; Start 05/12/17 at 21:00 Ascorbic Acid (Vitamin C) 500 mg DAILY PO Last administered on 05/26/17 08:35 ; Admin Dose 500 MG; Start 05/13/17 at 09:00 Atorvastatin Calcium (Lipitor) 10 mg QHS PO Last administered on 05/25/17 21: 07; Admin Dose 10 MG; Start 05/12/17 at 21:00 Donepezil HCl (Aricept) 10 mg DAILY PO Last administered on 05/26/17 08:36; Admin Dose 10 MG; Start 05/13/17 at 09:00 Metoprolol Tartrate (Lopressor) 100 mg BID GTB Last administered on 05/26/17 08:35; Admin Dose 100 MG; Start 05/12/17 at 21:00 Hydralazine HCl (Apresoline) 10 mg Q4H PRN IV SBP>170 Last administered on 08:25; Admin Dose 10 MG; Start 05/12/17 at 15:30 Ondansetron HCl (Zofran Inj) 4 mg Q6H PRN IV NAUSEA AND/OR VOMITING; Start 05/12/17 at 15:30 Acetaminophen (Tylenol Tab) 650 mg Q6H PRN PO PAIN LEVEL 1-3 OR FEVER Last administered on 05/14/17 11:18; Admin Dose 650 MG; Start 05/12/17 at 15:30 Docusate Sodium (Colace) 100 mg Q12H PRN PO CONSTIPATION; Start 05/12/17 at 15: 30 Enoxaparin Sodium (Lovenox) 30 mg DAILY SC Last administered on 05/26/17 08: 48; Admin Dose 30 MG; Start 05/13/17 at 09:00 Famotidine (Pepcid) 20 mg Q24H PO Last administered on 05/25/17 21:07; Admin Dose 20 MG; Start 05/12/17 at 21:00 Lorazepam (Ativan) 0.5 mg Q2H PRN IV AGITATION Last administered on 05/22/17 22:53; Admin Dose 0.5 MG; Start 05/16/17 at 00:00 Divalproex Sodium (Depakote Er) 750 mg BID PO Last administered on 05/26/17 08:35; Admin Dose 750 MG; Start 05/16/17 at 21:00 Nifedipine (Procardia Xl) 30 mg QHS PO Last administered on 05/25/17 21:08; Admin Dose 30 MG; Start 05/20/17 at 21:00 Amlodipine Besylate (Norvasc) 10 mg DAILY PO Last administered on 05/26/17 08 :35; Admin Dose 10 MG; Start 05/21/17 at 09:00 Mirtazapine (Remeron) 7.5 mg HS PO ; Start 05/26/17 at 21:00 JUDITH SMITH May 26, 2017 15:52
[2017-05-26] MEDS ORDERED: NIFE30TA2 PO (16:56)
[2017-05-26] MEDS ORDERED: MIRT15TA5 PO (16:56)
[2017-05-26] MEDS ORDERED: DIVA250T4 PO (16:56)
--- NOTE | 2017-05-26 19:24 | DS ---
Date/Time of Note Date/Time of Note DATE: 05/26/17 TIME: 19:21 Discharge Summary Admission/Discharge Info Admit Date/Time May 12, 2017 at 10:53 Discharge Date/Time May 26, 2017 at 18:35 Patient Condition: Stable Hx of Present Illness The patient is a 66-year-old gentleman, who is known to me from previous admission. The patient has history of intracranial hemorrhage status post-[employer] shunt placement, with lower extremities weakness. However, he was able to ambulate using a walker at home. The patient has history of diabetes mellitus, hypertension, chronic kidney disease, gout and hyperlipidemia. Patient with urinary retention and suprapubic catheter that was placed per last admission by Dr. Fay. Status post-history of G-tube placement. Status post- removal of G-tube. He was able to tolerate a regular diet at home. History of hypertension. The patient was in his usual health until a couple of days ago when patient developed generalized weakness and confusion. The patient was brought to the Emergency room by his daughter. The patient was diagnosed with acute cystitis and sepsis. Also, he was started on broad- spectrum antibiotics, and patient is admitted for further evaluation and management to medical-surgical floor. Hospital Course - Acute cystitis. Completed abx. - Sepsis secondary to number 1, resolved. is following in Infectious Disease consultation. 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 Continue BUN and creatinine. Dr. Ramsey is following patient in Nephrology consultation. - Acute metabolic encephalopathy, resolved - Diabetes mellitus. - Hypertension. Continue Norvasc, Hydralazine, and Procardia. - Hyperlipidemia. - Chronic urinary retention with suprapubic catheter. - Gout. - History of an intracranial hemorrhage with history of ventriculoperitoneal shunt. Repeat CT with stable [employer] shunt - Dementia, s/p evaluation by tele-psychiatrist for homicidal statements. Continue Seroquel and Depakote, started on Remeron for depression. Home Meds Active Scripts Nifedipine (Procardia Xl) 30 Mg Tab.er.24, 30 MG PO QHS for 30 Days, TAB Prov:MARIA ANTONIA GERMAN 05/26/17 Mirtazapine* (Mirtazapine*) 15 Mg Tablet, 7.5 MG PO HS for 30 Days, TAB Prov:MARIA ANTONIA GERMAN 05/26/17 Divalproex Sodium* (Depakote ER*) 250 Mg Tabsr, 750 MG PO BID for 30 Days, TAB Prov:MARIA ANTONIA GERMAN 05/26/17 Reported Medications Cranberry Fruit Concentrate (CRANBERRY) 450 Mg Capsule, 300 MG PO DAILY, CAP 05/12/17 Tamsulosin Hcl* (Tamsulosin Hcl*) 0.4 Mg Cap.er.24h, 0.4 MG PO HS, CAP 05/12/17 Metoprolol Tartrate* (Lopressor*) 100 Mg Tablet, 100 MG PO BID, #60 TAB HOLD IF SBP LESS THAN 110 HR 60 05/12/17 Ferrous Sulfate* (Ferrous Sulfate*) 325 Mg Tabec, 325 MG PO DAILY, TAB 05/12/17 Atorvastatin Calcium (Atorvastatin Calcium) 10 Mg Tablet, 10 MG PO QHS, #30 TAB 05/12/17 Amlodipine Besylate* (Norvasc*) 5 Mg Tablet, 5 MG PO DAILY, TAB HOLD FOR SBP LESS [id number] OR HR THAN 60 05/12/17 Acetaminophen* (Acetaminophen*) 500 MG Extra Strength Tablet, 500 MG PO Q6 Y for PAIN AND OR ELEVATED TEMP, TAB 05/12/17 Quetiapine Fumarate* (Quetiapine Fumarate*) 100 Mg Tablet, 100 MG PO BID, TAB 05/12/17 Donepezil* (Donepezil*) 10 Mg Tablet, 10 MG PO DAILY, #30 TAB 05/12/17 Metoprolol Tartrate* (Lopressor*) 100 Mg Tablet, 100 MG GTB BID, TAB HOLD IF SBP<110, HR<60 05/30/14 Discontinued Reported Medications Divalproex Sodium* (Depakote ER*) 500 Mg Tabsr, 500 MG PO BID, #30 TAB.SA 05/12/17 Follow-up Plan Follow-up with primary care physician in 1-2 weeks, CBC and BMP in 1-2 weeks, follow-up with outpatient psychiatrist in 2 weeks. Primary Care Provider Dominick Mclean MD Pending Labs Laboratory Tests Test 05/26/17 05:35 White Blood Count 6.410^3/ul (4.8-10.8) Red Blood Count 4.4210^6/ul (4.70-6.10) Hemoglobin 13.7g/dl (14.0-18.0) Hematocrit 40.8% (42.0-52.0) Mean Corpuscular Volume 92.3fl (82.0-101.0) Mean Corpuscular Hemoglobin 31.0pg (29.0-33.0) Mean Corpuscular Hemoglobin Concent 33.6g/dl (32.0-37.0) Red Cell Distribution Width 12.9% (11.5-14.5) Platelet Count 37781^3/UL (140-415) Mean Platelet Volume 10.6fl (7.4-10.4) Neutrophils % 35.5% (39.0-77.0) Lymphocytes % 52.3% (15.0-51.0) Monocytes % 9.3% (0.0-11.0) Eosinophils % 1.2% (0.0-7.0) Basophils % 1.2% (0.0-2.0) Nucleated Red Blood Cells % 0.0/100WBC (0.0-0.0) Neutrophils # 2.310^3/ul (1.6-7.5) Lymphocytes # 3.410^3/ul (0.8-2.9) Monocytes # 0.610^3/ul (0.3-0.9) Eosinophils # 0.110^3/ul (0.0-0.5) Basophils # 0.110^3/ul (0.0-0.1) Nucleated Red Blood Cells # 0.010^3/ul (0.0-0.0) Sodium Level 145mmol/L (135-144) Potassium Level 3.5mmol/L (3.5-5.1) Chloride Level 111mmol/L (97-110) Carbon Dioxide Level 22mmol/L (21-31) Anion Gap 16 (8-16) Blood Urea Nitrogen 35mg/dl (7-20) Creatinine 2.50mg/dl (0.61-1.24) Glucose Level 101mg/dl (70-220) Calcium Level 8.9mg/dl (8.4-10.2) MARIA ANTONIA GERMAN May 26, 2017 19:24
[2017-05-26] MEDS ORDERED: MIRTAZAPINE 15 MG TAB PO SCH (21:00)
== END 2017-05-26 18:35 | disposition home health service (06) | DRG 871 ==
LOC: E/R 09:52 → MS2 10:53
PROVIDERS: ADMIT Internal Medicine; ATTEND Internal Medicine
DX: A41.9 Sepsis, unspecified organism (principal); N17.0 Acute kidney failure with tubular necrosis; G93.41 Metabolic encephalopathy; E87.2 Acidosis; E87.0 Hyperosmolality and hypernatremia; D64.9 Anemia, unspecified; S16.1XXA Strain of muscle, fascia and tendon at neck level, initial encounter; N18.4 Chronic kidney disease, stage 4 (severe); N30.00 Acute cystitis without hematuria; B96.89 Other specified bacterial agents as the cause of diseases classified elsewhere; I69.354 Hemiplegia and hemiparesis following cerebral infarction affecting left non-dominant side; E11.22 Type 2 diabetes mellitus with diabetic chronic kidney disease; I12.9 Hypertensive chronic kidney disease with stage 1 through stage 4 chronic kidney disease, or unspecified chronic kidney disease; E78.5 Hyperlipidemia, unspecified; M10.9 Gout, unspecified; R33.8 Other retention of urine; Z96.0 Presence of urogenital implants; E87.6 Hypokalemia; R31.9 Hematuria, unspecified; X58.XXXA Exposure to other specified factors, initial encounter; Z86.79 Personal history of other diseases of the circulatory system; F32.9 Major depressive disorder, single episode, unspecified
CPT/HCPCS: 36415; 70450; 71010; 80048; 80053; 80164; 80202; 81001; 82962; 83036; 83605; 83735; 84100; 84484; 85025; 85610; 85730; 87040; 87086; 90686; 93005; 96365; 96366; 96368; J0360; J0692; J0696; J1450; J1650; J2060; J2543; J3370; J7030; J7050

== ENCOUNTER 2017-06-26 11:11 | Emergency (ER) | payer MEDICARE ==
[~2017-06-26] VITALS: Ht 170.2 cm; Wt 78.5 kg
[~2017-06-26 11:11] MED LIST changes: -ACET-141 GTB; +ACET-141 PO; -ALLO100T GTB; -AMLO5TAB4 GTB; +AMLO5TAB4 PO; -ASCO500S2 GTB; -ATOR10TA65 GTB; +ATOR10TA65 PO; -CLON-379 GTB; -COLC0.6T6 GTB; +CRAN450C PO; +DIVA250T4 PO; +DONE10TA7 PO; -EPOE10003 SC; -FER325 GTB; +FER325 PO; -INSU100C SC; +METO-407 PO; +MIRT15TA5 PO; +NIFE30TA2 PO; -PANT40TA4 GTB; -POLY15DR42 BOTH EYES; +QUET100T32 PO; -SULF1TAB31 PO; +TAMS0.4C2 PO
[2017-06-26 11:13] VITALS: Ht 170.2 cm; Wt 78.5 kg
[2017-06-26] MEDS ORDERED: NICARDipine HCL 30 MG CAPSULE PO ONE (12:00)
--- NOTE | 2017-06-26 12:11 | RADRPT ---
PROCEDURE: CT Brain without contrast. CLINICAL INDICATION: Dizziness. TECHNIQUE: A CT of the brain was performed on multidetector high-resolution CT scanner utilizing a xial sections from the skull base through the vertex without contrast. The scan was reviewed in sof t tissue brain and high frequency resolution bone algorithm windows. Images were reviewed on a high -resolution PACS workstation. One or more the following does reduction techniques were utilized: Aut omated exposure control, adjustment of the mA/ or kV according to patient's size, or use of iterativ e reconstruction technique. The exam CTDI = 43.16 mGy and the DLP = 720.23 mGy-cm. DICOM images are available. COMPARISON: Brain CT 05/26/2017. FINDINGS: Postsurgical changes of prior suboccipital craniotomy and similar areas of malacic changes in the le ft cerebellum are noted. There is associated left cerebellar volume loss with ex vacuo dilatation of the left lateral aspect of fourth ventricle. A right parietal approach ventricular shunt catheter is noted, likely a programmable shunt, which th e tip terminates in the left periventricular white matter. The ventricles and sulci are mildly prominent indicative of volume loss. There is mild cerebellar vo lume loss. There is no intracranial hemorrhage, mass effect or midline shift. No abnormal intra-ax ial or extra-axial fluid collections are seen. The orellana/white matter differentiation is preserved. There are mild to moderate scattered foci of hypoattenuation in the periventricular, deep, and subco rtical white matter, which are nonspecific in etiology but likely reflect chronic small vessel ische eric changes. There are mild intracranial vascular calcifications consistent with atherosclerosis. T he visualized paranasal sinuses are essentially clear. IMPRESSION: 1. No acute intracranial hemorrhage, transcortical infarction or mass effect. 2. Mild intracranial atherosclerosis and mild to moderate chronic small vessel ischemic changes. 3. Mild generalized cerebral and cerebellar volume loss. 4. A right parietal approach ventricular shunt catheter, likely a programmable shunt, which the tip terminates in the left periventricular white matter. 5. Prior suboccipital craniotomy and similar areas of malacic changes in the left cerebellum. RPTAT: HH .Nico Iniguez MD, MD Date Time Electronically viewed and signed by .Nico Iniguez MD, MD on 06/26/2017 12:10 .N/
--- NOTE | 2017-06-26 12:23 | RADRPT ---
PROCEDURE: Chest x-ray CLINICAL INDICATION: Chest pain TECHNIQUE: Chest single view COMPARISON: 05/12/2017 FINDINGS: As before there is a ventriculoperitoneal shunt descending along the right chest wall. Heart. Normal in size. Bony vessels are normal in caliber. Increasing left lower lobe linear atelectasis. Lungs o therwise clear. Costophrenic angles sharp. Bony thorax is unremarkable. IMPRESSION: 1. increasing left lower lobe linear atelectasis. 2. Ventriculoperitoneal shunt RPTAT: HH .Ramon Tovar MD, MD Date Time Electronically viewed and signed by .Ramon Tovar MD, on 06/26/2017 12:22 .W/
[2017-06-26 12:45] LABS: BASOPHIL # 0.1 10^3/ul (0.0-0.1); BASOPHILS % 1.1 % (0.0-2.0); EOSINOPHILS # 0.1 10^3/ul (0.0-0.5); HEMOGLOBIN 14.4 g/dl (14.0-18.0); LYMPHOCYTES # 2.8 10^3/ul (0.8-2.9); LYMPHOCYTES % 38.8 % (15.0-51.0); MEAN CORPUSCULAR HEMOGLOBIN 31.2 pg (29.0-33.0); MEAN CORPUSCULAR HGB CONC 33.5 g/dl (32.0-37.0); MEAN CORPUSCULAR VOLUME 93.3 fl (82.0-101.0); MEAN PLATELET VOLUME 11.1 fl (7.4-10.4); MONOCYTE # 0.7 10^3/ul (0.3-0.9); MONOCYTES % 10.4 % (0.0-11.0); NEUTROPHIL # 3.3 10^3/ul (1.6-7.5); NEUTROPHILS % 46.4 % (39.0-77.0); PLATELET COUNT 166 10^3/UL (140-415); RED BLOOD COUNT 4.61 10^6/ul (4.70-6.10); RED CELL DISTRIBUTION WIDTH 13.3 % (11.5-14.5); WHITE BLOOD COUNT 7.1 10^3/ul (4.8-10.8)
[2017-06-26 13:05] LABS: CALCIUM 9.6 mg/dl (8.4-10.2); CREATININE 2.36 mg/dl (0.61-1.24); POTASSIUM 4.3 mmol/L (3.5-5.1)
[2017-06-26 13:17] LABS: TROPONIN-I 0.017 ng/ml (0.00-0.12)
[2017-06-26] MEDS ORDERED: hydrALAzine 20 MG INJ IV ONE (13:30)
[2017-06-26] MEDS ORDERED: MECL12.574 PO (13:42)
--- NOTE | 2017-06-26 13:43 | ERD ---
ER Documentation Chief Complaint Chief Complaint pt bib family with c/o elevated BP, took reg meds not working hx CVA HPI Patient is a 66-year-old male with stroke and hypertension who presents with high blood pressure. His blood pressure was initially 189 and then 206 by a visiting nurse. He denies headache, shortness of breath, or chest pain. He says that he feels mildly dizzy. He did take his blood pressure medicines today. He cannot remember the name of his primary doctor. ROS All systems reviewed and are negative except as per history of present illness. Medications Home Meds Active Scripts Meclizine Hcl* (Antivert*) 12.5 Mg Tab, 12.5 MG PO Q6H Y for DIZZINESS, #20 TAB Prov:GRACE JENSEN MD 06/26/17 Nifedipine (Procardia Xl) 30 Mg Tab.er.24, 30 MG PO QHS for 30 Days, TAB Prov:MARIA ANTONIA GERMAN 05/26/17 Mirtazapine* (Mirtazapine*) 15 Mg Tablet, 7.5 MG PO HS for 30 Days, TAB Prov:MARIA ANTONIA GERMAN 05/26/17 Divalproex Sodium* (Depakote ER*) 250 Mg Tabsr, 750 MG PO BID for 30 Days, TAB Prov:MARIA ANTONIA GERMAN 05/26/17 Reported Medications Cranberry Fruit Concentrate (CRANBERRY) 450 Mg Capsule, 300 MG PO DAILY, CAP 05/12/17 Tamsulosin Hcl* (Tamsulosin Hcl*) 0.4 Mg Cap.er.24h, 0.4 MG PO HS, CAP 05/12/17 Metoprolol Tartrate* (Lopressor*) 100 Mg Tablet, 100 MG PO BID, #60 TAB HOLD IF SBP LESS THAN 110 HR 60 05/12/17 Ferrous Sulfate* (Ferrous Sulfate*) 325 Mg Tabec, 325 MG PO DAILY, TAB 05/12/17 Atorvastatin Calcium (Atorvastatin Calcium) 10 Mg Tablet, 10 MG PO QHS, #30 TAB 05/12/17 Amlodipine Besylate* (Norvasc*) 5 Mg Tablet, 5 MG PO DAILY, TAB HOLD FOR SBP LESS [id number] OR HR THAN 60 05/12/17 Acetaminophen* (Acetaminophen*) 500 MG Extra Strength Tablet, 500 MG PO Q6 Y for PAIN AND OR ELEVATED TEMP, TAB 05/12/17 Quetiapine Fumarate* (Quetiapine Fumarate*) 100 Mg Tablet, 100 MG PO BID, TAB 05/12/17 Donepezil* (Donepezil*) 10 Mg Tablet, 10 MG PO DAILY, #30 TAB 05/12/17 Metoprolol Tartrate* (Lopressor*) 100 Mg Tablet, 100 MG GTB BID, TAB HOLD IF SBP<110, HR<60 05/30/14 Allergies Allergies: Coded Allergies: morphine (Verified Allergy, Unknown, 05/12/17) PMhx/Soc Medical and Surgical Hx: pt denies Surgical Hx History of Surgery: No Anesthesia Reaction: No Hx Neurological Disorder: Yes (LEFT HEMIPARESIS, WEAKNESS, ALZ) Hx Respiratory Disorders: No Hx Cardiac Disorders: Yes (HTN) Hx Psychiatric Problems: No Hx Miscellaneous Medical Probl: Yes (GOUT, DM) Hx Alcohol Use: No Hx Substance Use: No Hx Tobacco Use: Yes Smoking Status: Former smoker FmHx Family History: No diabetes Physical Exam Vitals Vital Signs Date Time Temp Pulse Resp B/P Pulse Ox O2 Delivery O2 Flow Rate FiO2 06/26/17 12:36 Nasal Cannula 1 06/26/17 11:15 98.4 61 20 202/113 97 Room Air 06/26/17 11:13 97.4 65 18 185/117 98 Physical Exam Const: No acute distress Head: Atraumatic Eyes: Normal Conjunctiva ENT: Normal External Ears, Nose and Mouth. Neck: Full range of motion..~ No meningismus. Resp: Clear to auscultation bilaterally Cardio: Regular rate and rhythm, no murmurs Abd: Soft, non tender, non distended. Normal bowel sounds Skin: No petechiae or rashes Back: No midline or flank tenderness Ext: No cyanosis, or edema Neur: Awake and alert, cranial nerves II through XII intact, no slurred speech, strength is 5 out of 5 in all 4 extremities Psych: Normal Mood and Affect Result Diagram: 06/26/17 1237 06/26/17 1237 Results 24 hrs Laboratory Tests Test 06/26/17 12:37 White Blood Count 7.110^3/ul Red Blood Count 4.6110^6/ul Hemoglobin 14.4g/dl Hematocrit 43.0% Mean Corpuscular Volume 93.3fl Mean Corpuscular Hemoglobin 31.2pg Mean Corpuscular Hemoglobin Concent 33.5g/dl Red Cell Distribution Width 13.3% Platelet Count 80560^3/UL Mean Platelet Volume 11.1fl Neutrophils % 46.4% Lymphocytes % 38.8% Monocytes % 10.4% Eosinophils % 2.0% Basophils % 1.1% Nucleated Red Blood Cells % 0.0/100WBC Neutrophils # 3.310^3/ul Lymphocytes # 2.810^3/ul Monocytes # 0.710^3/ul Eosinophils # 0.110^3/ul Basophils # 0.110^3/ul Nucleated Red Blood Cells # 0.010^3/ul Sodium Level 146mmol/L Potassium Level 4.3mmol/L Chloride Level 108mmol/L Carbon Dioxide Level 24mmol/L Anion Gap 18 Blood Urea Nitrogen 32mg/dl Creatinine 2.36mg/dl Glucose Level 103mg/dl Calcium Level 9.6mg/dl Troponin I 0.017ng/ml Current Medications Medications (Trade) Dose Ordered Sig/Piper Route PRN Reason Start Time Stop Time Status Last Admin Dose Admin Nicardipine HCl (Cardene) 30 mg ONCE ONCE PO 06/26/17 12:00 06/26/17 12:01 DC 06/26/17 12:20 Hydralazine HCl (Apresoline) 10 mg ONCE ONCE IV 06/26/17 13:30 06/26/17 13:31 DC Procedures/MDM EKG read by me: Rate/Rhythm: Regular rate and rhythm at a normal rate Intervals: Normal Impression: No evidence of ischemia or arrhythmia CT brain shows [employer] shunt without acute abnormality per radiology. Patient is a 66-year-old male who presents with high blood pressure. He is basically asymptomatic other than mild dizziness. CT brain shows no sign of intracranial swelling or bleed. I believe outpatient management is appropriate. It appears that his [employer] shunt is working appropriately. The patient will be discharged home after his blood pressure was improved with Cardene and hydralazine. He can follow-up with his primary doctor within 24-48 hours for reevaluation. He can return for any worsening symptoms. I believe outpatient management is appropriate. Departure Diagnosis: Primary Impression: Dizzy Additional Impression: Hypertension Hypertension type: essential hypertension Qualified Code: I10 - Essential hypertension Condition: Fair Patient Instructions: High Blood Pressure (Hypertension), Dizziness, Unk Cause Additional Instructions: Mary Kate ashley doctor ANIL simons anna papa TISH PARA DENTRO DE 1-2 FARIAS.Dgale a la secretaria que nosotros le instruimos hacer esta tish.Avise o llame si coto condicin se empeora antes de la tish. Regresa aqui si peor o no mejor. GRACE JENSEN MD Jun 26, 2017 13:43
[2017-06-26 17:05] VITALS: BP 150/80; PULSE 72; RESP 16; TEMP 98.4
== END 2017-06-26 17:08 | disposition home or self-care (01) ==
LOC: E/R 11:11
DX: I10 Essential (primary) hypertension (principal); E11.9 Type 2 diabetes mellitus without complications; Z87.891 Personal history of nicotine dependence
CPT/HCPCS: 36415; 70450; 71010; 80048; 84484; 85025; 96374; 99285; J0360

== ENCOUNTER 2017-09-22 14:58 | Emergency (ER) | END 2017-09-22 21:23 | disposition home or self-care (01) ==

== ENCOUNTER 2018-02-14 11:35 | Inpatient (IN) | END 2018-02-25 16:37 | disposition home or self-care (01) | DRG 689 ==

== ENCOUNTER 2018-12-05 19:25 | Emergency (ER) | payer MEDICARE ==
[~2018-12-05] VITALS: Ht 162.6 cm; Wt 80.0 kg
[~2018-12-05 19:25] MED LIST changes: +CIPR500T4 PO; +DIVA-73 PO; -DIVA250T4 PO; +MECL12.574 PO
[2018-12-05 19:41] VITALS: Ht 162.6 cm; Wt 80.0 kg
[2018-12-05] MEDS ORDERED: CEFTRIAXONE 1 GM/50 ML (PMX) 50 ML IVPB ONE (23:30)
--- NOTE | 2018-12-05 23:43 | ERD ---
ER Documentation Chief Complaint Chief Complaint HEMATURIA X LAST NIGHT. 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 The catheter was flushed once and seemed to drain clear urine for some time, but the hematuria recurred. The patient does not endorse any pain or tenderness. There is been no trauma or injury. The patient has not pulled the catheter. It is still in place and draining. He denies any flank pain. He has otherwise felt well. He does not feel sick. He denies fever or chills. The patient has had no headache or vision changes. The patient does not endorse neck or back pain. The patient denies lightheadedness or dizziness. The patient has had no chest pain or trouble breathing. The patient denies nausea or vomiting. The patient denies abdominal pain. The patient denies changes to bowel movements. The patient has had no new focal deficits. ROS All systems reviewed and are negative except as per history of present illness. Medications Home Meds Active Scripts Ciprofloxacin Hcl* (Ciprofloxacin Hcl*) 500 Mg Tablet, 500 MG PO BID for 7 Days, TAB Prov:GRACE JENSEN MD 09/22/17 Meclizine Hcl* (Antivert*) 12.5 Mg Tab, 12.5 MG PO Q6H PRN for DIZZINESS, #20 TAB Prov:GRACE JENSEN MD 06/26/17 Nifedipine (Procardia Xl) 30 Mg Tab.er.24, 30 MG PO QHS for 30 Days, TAB Prov:MARIA ANTONIA GERMAN 05/26/17 Mirtazapine* (Mirtazapine*) 15 Mg Tablet, 7.5 MG PO HS for 30 Days, TAB Prov:MARIA ANTONIA GERMAN 05/26/17 Divalproex Sodium* (Depakote ER*) 250 Mg Tabsr, 750 MG PO BID for 30 Days, TAB Prov:MARIA ANTONIA GERMAN 05/26/17 Reported Medications Cranberry Fruit Concentrate (CRANBERRY) 450 Mg Capsule, 300 MG PO DAILY, CAP 05/12/17 Tamsulosin Hcl* (Tamsulosin Hcl*) 0.4 Mg Cap.er.24h, 0.4 MG PO HS, CAP 05/12/17 Metoprolol Tartrate* (Lopressor*) 100 Mg Tablet, 100 MG PO BID, #60 TAB HOLD IF SBP LESS THAN 110 HR 60 05/12/17 Ferrous Sulfate* (Ferrous Sulfate*) 325 Mg Tabec, 325 MG PO DAILY, TAB 05/12/17 Atorvastatin Calcium (Atorvastatin Calcium) 10 Mg Tablet, 10 MG PO QHS, #30 TAB 05/12/17 Amlodipine Besylate* (Norvasc*) 5 Mg Tablet, 5 MG PO DAILY, TAB HOLD FOR SBP LESS [id number] OR HR THAN 60 05/12/17 Acetaminophen* (Acetaminophen*) 500 MG Extra Strength Tablet, 500 MG PO Q6 PRN for PAIN AND OR ELEVATED TEMP, TAB 05/12/17 Quetiapine Fumarate* (Quetiapine Fumarate*) 100 Mg Tablet, 100 MG PO BID, TAB 05/12/17 Donepezil* (Donepezil*) 10 Mg Tablet, 10 MG PO DAILY, #30 TAB 05/12/17 Metoprolol Tartrate* (Lopressor*) 100 Mg Tablet, 100 MG GTB BID, TAB HOLD IF SBP<110, HR<60 05/30/14 Allergies Allergies: Coded Allergies: morphine (Verified Allergy, Unknown, 02/10/18) PMhx/Soc History of Surgery: Yes (Cholecystectomy, suprapubic catheterization, PAN SHOVER shunt) Anesthesia Reaction: No Hx Neurological Disorder: Yes (CVA with ICH 2016 status post PAN SHOVER shunt with mild left-sided deficits) Hx Respiratory Disorders: No Hx Cardiac Disorders: Yes (Hypertension, diabetes) Hx Psychiatric Problems: No Hx Miscellaneous Medical Probl: Yes (Gout, chronic kidney disease) Hx Alcohol Use: Yes Hx Substance Use: No Hx Tobacco Use: Yes Smoking Status: Former smoker FmHx Family History: No diabetes Physical Exam Vitals Vital Signs Date Temp Pulse Resp B/P (MAP) Pulse Ox O2 O2 Flow FiO2 Time Delivery Rate 12/05/18 63 16 156/100 100 Room Air 22:45 (118) 12/05/18 97.5 66 16 157/90 99 19:41 (112) Physical Exam Const: No apparent distress, well-developed, well-nourished Head: Normocephalic, Atraumatic Eyes: Normal Conjunctiva. Extraocular movements intact. ENT: Normal External Ears, Nose and Mouth. Neck: Full range of motion. No meningismus. Resp: Clear to auscultation bilaterally, No wheezes, rales or rhonchi Cardio: Regular rate and rhythm. No murmurs, rubs or gallops Abd: Soft, non tender, non distended. Suprapubic catheter in place with hematuria in the catheter bag, continues to appropriately drain. Normal bowel sounds Skin: No petechiae or rashes Back: No midline tenderness. No CVA tenderness Ext: No cyanosis, or edema Neur: Awake and alert, oriented 4. Cranial nerves intact. No facial droop. Normal strength and sensation. Mild left-sided coordination deficits. Psych: Normal Mood and Affect Result Diagram: 12/05/18 8288 Results 24 hrs Laboratory Tests Test 12/05/18 22:48 12/05/18 23:28 Urine Color RED Urine Clarity CLOUDY Urine pH 6.0 Urine Specific [place] 1.012 Urine Ketones NEGATIVE mg/dL Urine Nitrite NEGATIVE mg/dL Urine Bilirubin NEGATIVE mg/dL Urine Urobilinogen NEGATIVE mg/dL Urine Leukocyte Esterase 2+ Aquiles/ul Urine Microscopic RBC > 182 /HPF Urine Microscopic WBC > 182 /HPF Urine Hemoglobin 3+ mg/dL Urine Glucose NEGATIVE mg/dL Urine Total Protein 2+ mg/dl Sodium Level 145 mmol/L Potassium Level 4.4 mmol/L Chloride Level 111 mmol/L Carbon Dioxide Level 21 mmol/L Anion Gap 13 Blood Urea Nitrogen 25 mg/dl Creatinine 2.87 mg/dl Est Glomerular Filtrat Rate mL/min 22 mL/min Glucose Level 105 mg/dl Calcium Level 9.8 mg/dl Current Medications Medications Dose Sig/Piper Start Time Status Last (Trade) Ordered Route PRN Stop Time Admin Dose Reason Admin Ceftriaxone 50 ml @ ONCE ONCE 12/05/18 DC 12/05/18 Sodium 100 mls/hr IVPB 23:30 23:53 12/05/18 23:59 Procedures/MDM MDM The patient's presentation warrants further investigation. Previous medical records, if available, were reviewed. LABS The patient's laboratory testing was obtained and reviewed. No emergent treatment was required unless described below. Chemistry: No E/o severe acidosis or alkalosis or liver disease or diabetic ketoacidosis. Elevated BUN and creatinine in line with his baseline indicating chronic kidney disease. UA: E/o infection with hematuria TREATMENT/DISPOSITION The patient presents for hematuria through his suprapubic catheter. He is still draining. I do not see any evidence of significant clotting or occlusion of the catheter. There is evidence of a urinary tract infection which will be treated. There is no evidence of renal disease. He has no flank pain. He is afebrile. I do not suspect pyelonephritis. I do not suspect nephrolithiasis. The patient will be started on antibiotics. He needs to follow-up with his urologist in an outpatient setting. The patient does have evidence of chronic kidney disease, but I do not suspect acute on chronic kidney disease. The patient was given a dose of Rocephin in the ER DISCHARGE Upon reevaluation of the patient, symptoms have improved. No emergent diagnoses were identified. At this time, I feel that the patient stable for discharge. The patient was instructed to follow-up with a primary care physician in 1-3 days. The patient will be given strict precautions with which to return to the emergency department. Prescriptions: Keflex The patient's blood pressure was elevated at greater than 120/80 while in the emergency department. The patient was otherwise stable with no evidence of hypertensive urgency or emergency. The patient does not require admission for blood pressure control. I have discussed with the patient the risks of hypertension. I have instructed the patient to return to the ER for any new or worsening symptoms including chest pain, shortness of breath, headache, blurred vision, confusion, nausea, vomiting or LOC. I have advised the patient to follow up with the primary care physician for outpatient monitoring and treatment for hypertension in 1-3 days. Disclaimer: Inadvertent spelling and grammatical errors are likely due to EHR/dictation software use and do not reflect on the overall quality of patient care. Note that the electronic time recorded on this note does not necessarily reflect the actual time of the patient encounter. Departure Diagnosis: Primary Impression: Urinary tract infection Urinary tract infection type: acute cystitis Hematuria presence: with hematuria Qualified Codes: N30.01 - Acute cystitis with hematuria Additional Impressions: Hematuria Hematuria type: gross Qualified Codes: R31.0 - Gross hematuria Chronic kidney disease Chronic kidney disease stage: unspecified stage Qualified Codes: N18.9 - Chronic kidney disease, unspecified Condition: Stable Patient Instructions: Chronic Kidney Disease, Hematuria, Understanding Urinary Tract Infections (UTIs) Additional Instructions: Thank you for for coming to [facility] for your care today. Please ask your nurse or provider if you have questions about your care today and do not leave until all your questions have been answered. Please use any medications given as directed and follow-up with your doctor (or the doctor you were referred to) in the next 1-3 days. If you do not have a primary care doctor you may follow up at the [facility] or [facility] (listed below). You may also use motrin and tylenol as needed for fever and/or pain unless instructed otherwise by your provider or nurse. Indications for more urgent follow-up have been discussed, but you may return to the Emergency Department at ANY time for any worrisome or worsening symptoms. If you have abdominal pain, please know that no test or exam you received is perfect and you should follow up within 8 hours for continued pain. If you had any imaging studies today, such as an X-Ray or CT Scan, these studies will be reviewed later by a radiologist. You will be called if there are important findings that were not identified today, so make sure the contact information you provided at registration is correct. If you received any narcotic pain control medicine today, such as Vicodin, Morphine or Dilaudid, your coordination and judgment may be affected for a number of hours. Please do not drive or operate heavy machinery, and you may want someone to assist you at home. If you were given a prescription for narcotic medication, be aware that it is very addictive- use sparingly and only if necessary. PLEASE SEEK FURTHER EVALUATION AND MANAGEMENT AT YOUR DOCTORS OFFICE WITHIN THE NEXT 1-3 DAYS. IT IS YOUR RESPONSIBILITY TO MAKE AN APPOINTMENT FOR FOLOW-UP CARE. IF YOU HAVE A PRIMARY DOCTOR, PLEASE CALL THEIR OFFICE TO SCHEDULE AN APPOIN TMENT FOR FOLLOW UP. IF YOU DO NOT HAVE A PRIMARY DOCTOR YOU CAN CALL OUR PHYSICIAN REFERRAL HOTLINE AT IF YOU CAN NOT AFFORD TO SEE A PHYSICIAN YOU CAN CHOSE FROM THE FOLLOWING [facility] CLINICS: [facility] [address] [facility] [address] [facility]. [facility] [address] [facility] [address] [facility] [address] [facility] [facility]. [address] KELVIN MOLINA MD Dec 05, 2018 23:42
[2018-12-06] MEDS ORDERED: CEPH-443 PO (00:42)
[2018-12-06 00:50] VITALS: BP 134/93; PULSE 67; RESP 16
== END 2018-12-06 01:10 | disposition home or self-care (01) ==
LOC: E/R 19:25
DX: N30.01 Acute cystitis with hematuria (principal); I12.9 Hypertensive chronic kidney disease with stage 1 through stage 4 chronic kidney disease, or unspecified chronic kidney disease; N18.9 Chronic kidney disease, unspecified; E11.22 Type 2 diabetes mellitus with diabetic chronic kidney disease; Z87.891 Personal history of nicotine dependence
CPT/HCPCS: 80048; 81001; 96374; 99284; J0696